=== PATIENT | male | born 1955 | race Caucasian/White ===

== ENCOUNTER 2016-09-21 06:32 | Inpatient (IN) | payer OTHER ==
[~2016-09-21] VITALS: Ht 180.3 cm; Wt 100.1 kg
[~2016-09-21 06:32] MED LIST: LAMO25TA PO; LORA-741 PO; PHN/100 PO
[2016-09-21] MEDS ORDERED: DEXTCAP23 PO (07:24)
[2016-09-21] MEDS ORDERED: IBUP600T44 PO (07:24)
--- NOTE | 2016-09-21 07:34 | EMERGENCY ROOM VISIT NOTE ---
History Report prepared by Zay: Barbara Cat Under the Supervision of: Dr. Toan Unger D.O. First contact with patient: 06:40 Chief Complaint: FLU LIKE SX Stated Complaint: FLU BUG History of Present Illness The patient is a 60 year old male who presents to the Emergency Room with complaints of worsening flu like symptoms over the past 4 days. Currently, he is in mild discomfort as he is feeling generally unwell which has minimally been relieved with ibuprofen and Coricidin. Since the time of onset, the patient has had sinus congestion, post nasal drip, productive cough, generalized muscle aches, burning eyes, and perceived fevers. He also notes a sore throat, which he attests to his frequent cough. He denies headaches, chest pain, shortness of breath, abdominal pain, nausea, vomiting, diarrhea, hematochezia, melena, urinary symptoms, or weakness above baseline. The patient notes that his left ankle has been more swollen than lately and he intermittently experiences a cold, tingling sensation in it. Patient has followed up with neurology (hx of seizures) but he has not been given a diagnosis for these symptoms. Source of History: patient, family Onset: over the past 4 days Position: other (generalized) Symptom Intensity: mild Quality: other (flu like) Timing: worsening Modifying Factors (Relieving): ibuprofen, other (cordicidin) Associated Symptoms: + cough, + fevers, + numbness (tingling in his left ankle (and swelling)), + sorethroat, No SOB, No abdominal pain, No chest pain, No diarrhea, No headache, No hematochezia, No melena, No nausea, No urinary symptoms, No vomiting, No weakness Review of Systems See HPI for pertinent positives & negatives. A total of 10 systems reviewed and were otherwise negative. Past Medical & Surgical Medical Problems: (1) Altered mental status (2) EPILEPSY UNSPEC W/O MENTION INTRACTABLE EPILEPSY (3) Generalized epilepsy (4) Hx of brain cancer (5) MALIG DAWSON BRAIN NOS (6) Malignant neoplasm of brain (7) Meningitis (8) Partial small bowel obstruction (9) SBO (small bowel obstruction) (10) Seizure (11) Seizure (12) Seizure (13) Seizure Surgical Problems: (1) Hx of brain surgery Family History No pertinent family history Social History Smoking Status: Never Smoker Alcohol Use: none Drug Use: none Marital Status: Housing Status: lives with family Occupation Status: disabled Current/Historical Medications Scheduled Dextromethorphan-Guaifenesin (Coricidin Hbp Chest Conge), 1 CAP PO DIRECTED Lamotrigine (Lamictal), 200 MG PO AMPM Lamotrigine (Lamictal), 1 TAB PO BID Phenytoin Sodium (Dilantin), 200 MG PO BID Scheduled PRN Ibuprofen (Motrin), 600 MG PO Q6H PRN for Pain Allergies Coded Allergies: No Known Allergies (Verified , `, 09/21/16) Physical Exam Vital Signs Date Time Temp Pulse Resp B/P Pulse Ox O2 Delivery O2 Flow Rate FiO2 09/21/16 09:25 84 16 148/99 91 Room Air 09/21/16 09:08 36.8 91 20 142/92 91 Room Air 09/21/16 08:51 84 19 142/92 93 Room Air 09/21/16 08:27 86 09/21/16 08:22 86 18 137/96 94 Room Air 09/21/16 06:35 36.8 91 18 136/87 93 Room Air Physical Exam GENERAL: Patient is awake, alert, and in no acute distress. Patient is resting comfortably and showing no signs of anxiety EYES: The conjunctivae are clear. The pupils are round and reactive. EARS, NOSE, MOUTH AND THROAT: TMs clear, bilaterally. Clear rhinorrhea noted from both nares.Mild erythema noted in the posterior oropharynx. Mucous membranes are moist tongue is midline NECK: The neck is nontender and supple. RESPIRATORY: Normal respiratory effort is noted there is no evidence of wheezing rhonchi or rales CARDIOVASCULAR: Regular rate and rhythm noted there no murmurs rubs or gallops normal S1 normal S2 GASTROINTESTINAL: The abdomen is soft. Bowel sounds are present in all quadrants. Abdomen is nontender MUSCULOSKELETAL/EXTREMITIES: There is no evidence of gross deformity full range of motion is noted in the hips and shoulders SKIN: Pedal edema bilaterally, left greater than right. There is no obvious evidence of any rash. There are no petechiae, pallor or cyanosis noted. NEUROLOGIC: Patient is awake alert and oriented x3. Medical Decision & Procedures ER Provider Diagnostic Interpretation: X-ray results as stated below per interpretation by me and the radiologist. US results as stated below per my review and radiologist interpretation. CHEST 2 VIEWS ROUTINE CLINICAL HISTORY: Cough. COMPARISON STUDY: Chest radiograph September 27, 2015. FINDINGS: Lung volumes are diminished. Elevation of the right hemidiaphragm is unchanged. There is no pneumothorax. There is no evidence for pulmonary edema. Linear left basilar opacity is suggestive of atelectasis. Right lower lung opacity also likely reflects atelectasis. IMPRESSION: 1. Diminished lung volumes with elevation of the right hemidiaphragm which is unchanged since prior exam. 2. Linear bibasilar opacities which favor atelectasis. Electronically signed by: Jd Gonzalez M.D. 09/21/2016 7:42 AM ULTRASOUND LEFT VENOUS DOPP LOWER EXT UNILAT CLINICAL HISTORY: Left lower extremity swelling COMPARISON STUDY: No previous studies for comparison. FINDINGS: There is extensive left lower extremity acute deep venous thrombus. There is thrombus extending from the common femoral vein to the calf with involvement of the common femoral superficial femoral and popliteal veins. IMPRESSION: Extensive left lower extremity DVT with involvement of the common femoral, superficial femoral, and popliteal veins. The common femoral thrombus measures 1 cm diameter Electronically signed by: Daren Manrique M.D. 09/21/2016 7:40 AM Laboratory Results 09/21/16 08:05 Red Blood Count 4.67, Mean Corpuscular Volume 94.6, Mean Corpuscular Hemoglobin 33.2, Mean Corpuscular Hemoglobin Concent 35.1, Mean Platelet Volume 9.0, Neutrophils (%) (Auto) 70.5, Lymphocytes (%) (Auto) 11.7, Monocytes (%) (Auto) 17.0, Eosinophils (%) (Auto) 0.4, Basophils (%) (Auto) 0.2, Neutrophils # (Auto ) 3.45, Lymphocytes # (Auto) 0.57, Monocytes # (Auto) 0.83, Eosinophils # (Auto ) 0.02, Basophils # (Auto) 0.01 09/21/16 08:05 Test 09/21/16 06:55 09/21/16 08:05 Influenza Type A Antigen POS for Influ A (NEG) Influenza Type B Antigen Neg for Influ B (NEG) White Blood Count 4.89 K/uL (4.8-10.8) Red Blood Count 4.67 M/uL (4.7-6.1) Hemoglobin 15.5 g/dL (14.0-18.0) Hematocrit 44.2 % (42-52) Mean Corpuscular Volume 94.6 fL (80-100) Mean Corpuscular Hemoglobin 33.2 pg (25-34) Mean Corpuscular Hemoglobin Concent 35.1 g/dl (32-36) Platelet Count 136 K/uL (130-400) Mean Platelet Volume 9.0 fL (7.4-10.4) Neutrophils (%) (Auto) 70.5 % Lymphocytes (%) (Auto) 11.7 % Monocytes (%) (Auto) 17.0 % Eosinophils (%) (Auto) 0.4 % Basophils (%) (Auto) 0.2 % Neutrophils # (Auto) 3.45 K/uL (1.4-6.5) Lymphocytes # (Auto) 0.57 K/uL (1.2-3.4) Monocytes # (Auto) 0.83 K/uL (0.11-0.59) Eosinophils # (Auto) 0.02 K/uL (0-0.5) Basophils # (Auto) 0.01 K/uL (0-0.2) RDW Standard Deviation 48.1 fL (36.4-46.3) RDW Coefficient of Variation 14.0 % (11.5-14.5) Immature Granulocyte % (Auto) 0.2 % Immature Granulocyte # (Auto) 0.01 K/uL (0.00-0.02) Prothrombin Time 10.9 SECONDS (9.0-12.0) Prothromb Time International Ratio 1.0 (0.9-1.1) Activated Partial Thromboplast Time 32.0 SECONDS (21.0-31.0) Partial Thromboplastin Ratio 1.2 Anion Gap 10.0 mmol/L (3-11) Est Creatinine Clear Calc Drug Dose 118.9 ml/min Estimated GFR () 113.3 Estimated GFR (Non- 97.8 BUN/Creatinine Ratio 16.8 (10-20) Calcium Level 8.9 mg/dl (8.5-10.1) Total Bilirubin 0.3 mg/dl (0.2-1) Direct Bilirubin 0.1 mg/dl (0-0.2) Aspartate Amino Transf (AST/SGOT) 32 U/L (15-37) Alanine Aminotransferase (ALT/SGPT) 58 U/L (12-78) Alkaline Phosphatase 196 U/L (45-117) Troponin I < 0.015 ng/ml (0-0.045) Total Protein 7.6 gm/dl (6.4-8.2) Albumin 3.9 gm/dl (3.4-5.0) Lipase 81 U/L (73-393) Hepatitis C Antibody Screen NEG (NEG) Laboratory results per my review. Medications Administered Medications (Trade) Dose Ordered Sig/[place] Route Start Time Stop Time Status Last Admin Dose Admin Oseltamivir Phosphate (Tamiflu Cap) 75 mg ONE STAT PO 09/21/16 07:43 09/21/16 07:44 DC 09/21/16 07:43 75 MG Enoxaparin Sodium (Lovenox Inj) 100 mg NOW ONCE SQ 09/21/16 08:45 09/21/16 08:46 DC 09/21/16 08:49 100 MG Acetaminophen (Tylenol Tab) 650 mg Q4H PRN PO 09/21/16 09:45 10/21/16 09:44 09/21/16 15:51 650 MG ECG Indication: other (DVT) Rate (beats per minute): 80 Rhythm: normal sinus Findings: no acute ischemic change, no ectopy Change: no significant change (when compared to 01/27/16) ED Course 0642: The patient was evaluated in room B3. A complete history and physical examination were performed. 0743: Tamiflu cap 75 mg PO was ordered. 0750: Upon reevaluation the patient was doing well and appeared to be resting more comfortably. I updated him and his family on the results of his radiology reports and lab tests that had returned. The pathologist will be contacted. 0832: Lovenox 100 mg SQ was ordered. 0835: Discussed the patient's case with Dr. Jimenez of pathology. She suggested admitting the patient to medicine due to his history of glioblastoma and his lack of PCP. The hospitalist will be contacted. 0854: After discussion with Dr. Ray, the patient will continue to be evaluated by the [facility] for further management. The patient verbalized his understanding and agreement with this treatment plan. Medical Decision Differential diagnosis: Etiologies such as viral syndrome, otitis, pharyngitis, pneumonia, influenza, meningitis, urinary tract infection, sepsis, bacteremia, as well as others were entertained. Nursing notes reviewed. The patient is a 60-year-old male who presented to the emergency department for an evaluation of lower extremity swelling cough and rhinorrhea. The patient had a history physical exam consistent with the flu and his flu swab was positive. He also complained of left leg swelling. He states that this is been ongoing for a few weeks. He was not sure if he wanted this to be checked out at this time because she does not like to go to the doctor's. After discussion with myself and his he agreed to have a Doppler done. The Doppler showed very extensive left lower extremity DVT. I discussed the patient's findings with Dr. Jimenez and also discussed his case with the on-call [facility] hospitalist group. They've agreed to evaluate the patient in the emergency department for further management and disposition. I discussed the patient's laboratory and radiographic studies with him. Consults Time Called: 0820 Consulting Physician: Dr. Jimenez - pathology Returned Call: 0830 Discussed the patient's case. She suggested admitting the patient to medicine due to his history of glioblastoma and his lack of PCP. Additional Consults: Time Called: 0835 Consulted Physician: Dr. Ray - [facility] Returned Call: 0850 Additional Comments: Discussed the patient's case. He will continue to be evaluated by the [facility] hospitalist for further management. Impression Primary Impression: Deep vein thrombosis (DVT) of distal vein of left lower extremity Additional Impression: Influenza Scribe Attestation The scribe's documentation has been prepared under my direction and personally reviewed by me in its entirety. I confirm that the note above accurately reflects all work, treatment, procedures, and medical decision making performed by me. Departure Information Dispostion Being Evaluated By Hospitalist ([facility]) Referrals No Doctor, Assigned (PCP)
--- NOTE | 2016-09-21 07:42 | DIAGNOSTIC IMAGING REPORT ---
ULTRASOUND LEFT VENOUS DOPP LOWER EXT UNILAT CLINICAL HISTORY: Left lower extremity swelling COMPARISON STUDY: No previous studies for comparison. FINDINGS: There is extensive left lower extremity acute deep venous thrombus. There is thrombus extending from the common femoral vein to the calf with involvement of the common femoral superficial femoral and popliteal veins. IMPRESSION: Extensive left lower extremity DVT with involvement of the common femoral, superficial femoral, and popliteal veins. The common femoral thrombus measures 1 cm diameter Electronically signed by: Daren Manrique M.D. 09/21/2016 7:40 AM
[2016-09-21] MEDS ORDERED: OSELTAMIVIR PHOSPHATE 75 MG CAP PO STA (07:43)
--- NOTE | 2016-09-21 07:44 | DIAGNOSTIC IMAGING REPORT ---
CHEST 2 VIEWS ROUTINE CLINICAL HISTORY: Cough. COMPARISON STUDY: Chest radiograph September 27, 2015. FINDINGS: Lung volumes are diminished. Elevation of the right hemidiaphragm is unchanged. There is no pneumothorax. There is no evidence for pulmonary edema. Linear left basilar opacity is suggestive of atelectasis. Right lower lung opacity also likely reflects atelectasis. IMPRESSION: 1. Diminished lung volumes with elevation of the right hemidiaphragm which is unchanged since prior exam. 2. Linear bibasilar opacities which favor atelectasis. Electronically signed by: Jd Gonzalez M.D. 09/21/2016 7:42 AM
[2016-09-21 08:22] LABS: BASO % 0.2 %; BASO ABS # 0.01 K/uL (0-0.2); COMPLETE YES; EOS % 0.4 %; HEMATOCRIT 44.2 % (42-52); IG% 0.2 %; LYMPH % 11.7 %; LYMPH ABS # 0.57 K/uL (1.2-3.4); MEAN CELL VOLUME 94.6 fL (80-100); MEAN CORPUSCULAR HEMOGLOBIN 33.2 pg (25-34); MEAN CORPUSCULAR HGB CONC 35.1 g/dl (32-36); NEUT % 70.5 %; PLATELET COUNT 136 K/uL (130-400); RED BLOOD COUNT 4.67 M/uL (4.7-6.1); WHITE BLOOD COUNT 4.89 K/uL (4.8-10.8)
[2016-09-21 08:30] LABS: PARTIAL THROMBOPLASTIN RATIO 1.2; PROTHROMBIN TIME (PATIENT) 10.9 SECONDS (9.0-12.0)
[2016-09-21 08:40] LABS: ALT/SGPT 58 U/L (12-78); BLOOD UREA NITROGEN 13 mg/dl (7-18); BUN/CREATININE RATIO 16.8 (10-20); CALCIUM 8.9 mg/dl (8.5-10.1); CARBON DIOXIDE 26 mmol/L (21-32); CHLORIDE 103 mmol/L (98-107); GLUCOSE 96 mg/dl (70-99); POTASSIUM 3.7 mmol/L (3.5-5.1); SODIUM 139 mmol/L (136-145)
[2016-09-21 08:45] LABS: ALKALINE PHOSPHATASE 196 U/L (45-117); AST/SGOT 32 U/L (15-37)
[2016-09-21] MEDS ORDERED: ENOXAPARIN 100 MG/1ML SYR SQ ONE (08:45)
[2016-09-21 09:08] VITALS: BP 142/92; PULSE 91; TEMP 36.8; O2SAT 91; Ht 180.3 cm; Wt 100.1 kg
[2016-09-21] MEDS ORDERED: ENOXAPARIN 1 MG/KG SQ SCH (09:45)
[2016-09-21] MEDS ORDERED: POLYETHYLENE (MIRALAX) 17 GM PACK PO PRN (09:45)
[2016-09-21] MEDS ORDERED: ALUMINUM/MAGNESIUM/SIMETH (MAALOX MAX) 30 ML UDC PO PRN (09:45)
[2016-09-21] MEDS ORDERED: MAGNESIUM HYDROXIDE SUSP 30 ML UDC PO PRN (09:45)
[2016-09-21] MEDS ORDERED: ONDANSETRON INJ 2 MG/ML 2 ML VIAL IV PRN (09:45)
[2016-09-21] MEDS ORDERED: OPTIRAY 320 IV PRN (10:15)
--- NOTE | 2016-09-21 10:26 | History and Physical ---
History & Physical Date & Time of Service: Sep 21, 2016 at 10:06 Chief Complaint: Flu Bug Primary Care Physician: No Doctor, Assigned History of Present Illness Source: patient, family Patient is a pleasant 60 y/o male, with PMHx of glioblastoma s/p resection and grand mal seizures, who presented to the ED for flu-like symptoms. Incidentally , an extensive left lower extremity DVT was found. Patient presented to the ED because of cough, fever/chills, and diffuse body aches x3 days. Patient tested positive for influenza A. His entire family has been sick with flu-like symptoms , but his continued to persist. On physical exam, ED doctor noticed lower left extremity edema. According to , patient noticed the swelling around Ina time, but refused to go get checked out. Patient has decreased sensation to entire left side due to the effects of his glioblastoma surgery, so states he cannot feel any discomfort in the extremity. Per patient he had his tumor resection in 2003, with success. A few years after, patient experienced a blood clot in his brain form the scar tissue. A second procedure was preformed, which caused the left sided impairment. He denies any history of PE or DVT. He denies any recently long travel. His states patient has been less active over the winter months. He does not have an established PCP. Patient denies any sweats, lightheadedness, dizziness, vision changes, CP, palpitations, edema, SOB, wheezing, abdominal pain, nausea, vomiting, diarrhea, urinary symptoms, melena, numbness/tingling, weakness, muscle/joint pain, anxiety/depression, active bleeding, or new skin discoloration/changes. Past Medical/Surgical History Medical Problems: (1) EPILEPSY UNSPEC W/O MENTION INTRACTABLE EPILEPSY Status: Chronic (2) Generalized epilepsy Status: Chronic (3) Hx of brain cancer Status: Chronic (4) MALIG DAWSON BRAIN NOS Status: Resolved (5) Malignant neoplasm of brain Status: Resolved (6) Meningitis Status: Resolved (7) Partial small bowel obstruction Status: Resolved (8) SBO (small bowel obstruction) Status: Resolved (9) Seizure Status: Resolved (10) Seizure Status: Resolved (11) Seizure Status: Resolved (12) Seizure Status: Resolved Surgical Problems: (1) Hx of brain surgery Status: Chronic Family History No pertinent family history Social History Smoking Status: Never Smoker Drug Use: none Marital Status: Housing status: lives with family Occupational Status: disabled Immunizations History of Influenza Vaccine: Yes History of Tetanus Vaccine?: Yes History of Pneumococcal: No History of Hepatitis B Vaccine: No Multi-Drug Resistant Organisms History of MDRO: No Allergies Coded Allergies: No Known Allergies (Verified , `, 09/21/16) Home Medications Scheduled Dextromethorphan-Guaifenesin (Coricidin Hbp Chest Conge), 1 CAP PO DIRECTED Lamotrigine (Lamictal), 200 MG PO AMPM Lamotrigine (Lamictal), 1 TAB PO BID Phenytoin Sodium (Dilantin), 200 MG PO BID Scheduled PRN Ibuprofen (Motrin), 600 MG PO Q6H PRN for Pain Physical Exam Vital Signs Date Time Temp Pulse Resp B/P Pulse Ox O2 Delivery O2 Flow Rate FiO2 09/21/16 09:25 84 16 148/99 91 Room Air 09/21/16 09:08 36.8 91 20 142/92 91 Room Air 09/21/16 08:51 84 19 142/92 93 Room Air 09/21/16 08:27 86 09/21/16 08:22 86 18 137/96 94 Room Air 09/21/16 06:35 36.8 91 18 136/87 93 Room Air General Appearance: no apparent distress Head: normocephalic, atraumatic Eyes: normal inspection, PERRL ENT: hearing grossly normal Neck: supple Respiratory/Chest: lungs clear, no respiratory distress, no accessory muscle use, + decreased breath sounds Cardiovascular: regular rate, rhythm, normal peripheral pulses Abdomen/GI: normal bowel sounds, non tender, soft Back: + pertinent finding (irregular mole with scabbing loacated near right shoulder blade) Extremities/Musculoskelatal: no calf tenderness, no pedal edema, + swelling (+ 1 pitting edema of left lower extremity ) Neurologic/Psych: alert, normal mood/affect, oriented x 3 Skin: normal color, warm/dry, no rash Diagnostics Laboratory Results Results Past 24 Hours Test 09/21/16 06:55 09/21/16 08:05 Range/Units Influenza Type A Antigen POS for Influ A NEG Influenza Type B Antigen Neg for Influ B NEG White Blood Count 4.89 4.8-10.8 K/uL Red Blood Count 4.67 4.7-6.1 M/uL Hemoglobin 15.5 14.0-18.0 g/dL Hematocrit 44.2 42-52 % Mean Corpuscular Volume 94.6 80-100 fL Mean Corpuscular Hemoglobin 33.2 25-34 pg Mean Corpuscular Hemoglobin Concent 35.1 32-36 g/dl Platelet Count 136 130-400 K/uL Mean Platelet Volume 9.0 7.4-10.4 fL Neutrophils (%) (Auto) 70.5 % Lymphocytes (%) (Auto) 11.7 % Monocytes (%) (Auto) 17.0 % Eosinophils (%) (Auto) 0.4 % Basophils (%) (Auto) 0.2 % Neutrophils # (Auto) 3.45 1.4-6.5 K/uL Lymphocytes # (Auto) 0.57 1.2-3.4 K/uL Monocytes # (Auto) 0.83 0.11-0.59 K/uL Eosinophils # (Auto) 0.02 0-0.5 K/uL Basophils # (Auto) 0.01 0-0.2 K/uL RDW Standard Deviation 48.1 36.4-46.3 fL RDW Coefficient of Variation 14.0 11.5-14.5 % Immature Granulocyte % (Auto) 0.2 % Immature Granulocyte # (Auto) 0.01 0.00-0.02 K/uL Prothrombin Time 10.9 9.0-12.0 SECONDS Prothromb Time International Ratio 1.0 0.9-1.1 Activated Partial Thromboplast Time 32.0 21.0-31.0 SECONDS Partial Thromboplastin Ratio 1.2 Sodium Level 139 136-145 mmol/L Potassium Level 3.7 3.5-5.1 mmol/L Chloride Level 103 98-107 mmol/L Carbon Dioxide Level 26 21-32 mmol/L Anion Gap 10.0 3-11 mmol/L Blood Urea Nitrogen 13 7-18 mg/dl Creatinine 0.80 0.60-1.40 mg/dl Est Creatinine Clear Calc Drug Dose 118.9 ml/min Estimated GFR () 113.3 Estimated GFR (Non- 97.8 BUN/Creatinine Ratio 16.8 10-20 Random Glucose 96 70-99 mg/dl Calcium Level 8.9 8.5-10.1 mg/dl Total Bilirubin 0.3 0.2-1 mg/dl Direct Bilirubin 0.1 0-0.2 mg/dl Aspartate Amino Transf (AST/SGOT) 32 15-37 U/L Alanine Aminotransferase (ALT/SGPT) 58 12-78 U/L Alkaline Phosphatase 196 45-117 U/L Troponin I < 0.015 0-0.045 ng/ml Total Protein 7.6 6.4-8.2 gm/dl Albumin 3.9 3.4-5.0 gm/dl Lipase 81 73-393 U/L Diagnostic Radiology CHEST 2 VIEWS ROUTINE CLINICAL HISTORY: Cough. COMPARISON STUDY: Chest radiograph September 27, 2015. FINDINGS: Lung volumes are diminished. Elevation of the right hemidiaphragm is unchanged. There is no pneumothorax. There is no evidence for pulmonary edema. Linear left basilar opacity is suggestive of atelectasis. Right lower lung opacity also likely reflects atelectasis. IMPRESSION: 1. Diminished lung volumes with elevation of the right hemidiaphragm which is unchanged since prior exam. 2. Linear bibasilar opacities which favor atelectasis. Electronically signed by: Jd Gonzalez M.D. 09/21/2016 7:42 AM The status of this report is Signed. Draft = Not yet reviewed or approved by Radiologist. Signed = Reviewed and approved by Radiologist. ULTRASOUND LEFT VENOUS DOPP LOWER EXT UNILAT CLINICAL HISTORY: Left lower extremity swelling COMPARISON STUDY: No previous studies for comparison. FINDINGS: There is extensive left lower extremity acute deep venous thrombus. There is thrombus extending from the common femoral vein to the calf with involvement of the common femoral superficial femoral and popliteal veins. IMPRESSION: Extensive left lower extremity DVT with involvement of the common femoral, superficial femoral, and popliteal veins. The common femoral thrombus measures 1 cm diameter Electronically signed by: Daren Manrique M.D. 09/21/2016 7:40 AM The status of this report is Signed. Draft = Not yet reviewed or approved by Radiologist. Signed = Reviewed and approved by Radiologist. EKG MICHELLE BHAKTA ID:[id number] 21-SEP-2016 08:04:42 [facility] Normal sinus rhythm Normal ECG When compared with ECG of 27-JAN-2016 06:28, No significant change was found 25mm/s 10mm/mV 150Hz 8.0 SP2 12SL 241 MARIVEL: 9 Referred by: Referred Self Unconfirmed Vent. rate 88 BPM [place] interval 140 ms QRS duration 90 ms QT/QTc 354/428 ms P-R-T axes 25 -2 23 1955 (60 yr) Male 97in 1lb Room:B3B Loc:15 [employer] Supervisor:WINSTON Nicolas ind: Impression Assessment and Plan 60 y/o male, with PMHx of glioblastoma s/p resection, grand mal seizures, who presented to the ED for flu-like symptoms. Incidentally, an extensive left lower extremity DVT was found. Left lower extremity DVT: -Lovenox 1mg/kg q12 hrs bridge with oral anticoagulation -CT of chest for PE -Follow PTT/PT/INR Flu-like symptoms, Influenza A positive: -Supportive care -Tamiflu 75 mg PO BID x5 days -Follow CBC and PRP Seizure disorder: -Continue Lamictal 225 mg PO BID -Continue Dilantin 200 mg PO BID -Follows with Dr. 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 Will need to establish care for routine follow-ups, especially with history of Glioblastoma. Needs colonoscopy -Help with cost/option of coagulation therapy Code Status: -LEVEL V, DNR Level of Care Med/Surg Advanced Directives Existing Advance Directive: No Existing Living Will: No Existing Power of Job Developer For Deaf Adults: Yes Resuscitation Status DO NOT RESUSCITATE VTE Prophylaxis VTE Risk Assessment Done? Y/N: Yes Risk Level: High Given or contraindicated: Enoxaparin (Lovenox)SQ Reviewed: Pt Seen/Exam by Me, JOJO Notes, Labs, RAD, EKG History Agree with above HPI/H&P/PMH/PSH/ROS. Pt and report left leg started swelling on 09/06/16 the day after he was having some significant left axillary pain prompting a trip to the urgent care the day prior. noticed left leg swelling but pt stubborn and wouldn't get it checked out. He denies CP or SOB, but is coughing right now and has pain in central chest only with cough. He has +Flu A swab here but is afebrile, not septic. He and his both admit he is very avoidant of doctors except he does see Dr. christainson q6 mo for seizure f/u. no h/o bleeding of any kind, no other clots except the one by his scar tissue with repeat surgery in approx 2008. CT chest done here w/ motion artifact but no PEs in main pulm arteries, some mediastinal ALISTAIR probably reactive with respiratory symptoms from flu. His atypical appearing skin lesion on mid upper back has been present for 3 years, growing in size, and bleeds frequently. Pt states he is willing to see a Territory Sales Professional here for biopsy, but would never go as an outpatient as he absolutely knows for sure he does not have cancer anywhere in his body, and that he has been cured/healed indefinitely by God. All Other Systems: Reviewed and Negative (except as above PA note) General Appearance: WD/WN, no apparent distress Eye Exam: right eye normal inspection (with mild ptosis left lid) Ears, Nose, Throat: hearing grossly normal Neck: trachea midline Respiratory: lungs clear, normal breath sounds, no respiratory distress, no accessory muscle use Cardiovascular: normal peripheral pulses, regular rate, rhythm, no gallop, no murmur Gastrointestinal: normal bowel sounds, non tender, soft, no organomegaly Extremities: swelling (left leg with 2+ pitting edema from foot to knee and distal thigh, mild erythema distal leg, nontender) Neurologic/Psychiatric: alert, normal mood/affect, other (speech is slightly slowed, left sided mildly decreased motor strength LUE and LLE, left facial droop present) Skin Characteristics: normal color (except left leg mild erythema), other ( upper mid back with approx 1 cm flesh colored papule that is shiny, with several areas of scab and some minor active oozing of blood around the circumference) Lymphatic: no adenopathy Assessment/Plan Agree with above PA A/P with the following exceptions/additions: DVT LLE-extensive clot formation, reports sedentary the last month or so and with baseline left sided weakness, probable cause of his DVT. But does have a h/o GBM, and has an abnormal appearing skin lesion and lymphadenopathy on chest CT. He is not anemic so colon CA most likely not underlying, however, I do still recommend colonoscopy screening. He has some mediastinal and hilar adenopathy on chest CT but this is most likely reactive to influenza. I will ask Pulm to see him for their opinion on the lymphadenopathy. Given his outright defiance of seeing any doctors except for Dr. Christianson (Neuro) as an outpatient, I will ask DERM to see him for possible biopsy of the back lesion while in the hospital. It is most likely a BCC, but could be a nonpigmented melanoma? 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 I called to d/w Dr. Christianson on the phone who agreed that although the risk is there, pt is fairly remote from his surgeries and the risk of not anticoagulating him far outweighs the risk of bleeding. In d/w and pt, we will proceed with coumadin as it is reversible in case of bleed, and cheaper. She said he would be willing to go for lab testing frequently for this condition. Will overlap Lovenox with coumadin x 5 days and stop after INR>2
--- NOTE | 2016-09-21 11:51 | DIAGNOSTIC IMAGING REPORT ---
CT ANGIOGRAM OF THE CHEST CLINICAL HISTORY: Hypoxia. Extensive DVT. Suspected pulmonary embolism. COMPARISON STUDY: Chest x-ray dated 09/21/2016 TECHNIQUE: Following the IV administration of 96 mL of Optiray-320, CT angiogram of the thorax was performed from the thoracic inlet to the lung bases utilizing the pulmonary embolus protocol. Images are reviewed in the axial, sagittal, and coronal planes. IV contrast was administered without complication. MIP imaging was performed. CT DOSE: 560.78 mGy.cm FINDINGS: There is an enlarged right paratracheal lymph node measuring 13 mm. There is an enlarged left prevascular lymph node measuring 12 mm. There is an enlarged subcarinal lymph node measuring 11 mm. There are borderline enlarged hilar lymph nodes. Atheromatous changes are present within the thoracic aorta most pronounced the level of the arch. There is no evidence of thoracic aortic aneurysm. Evaluation of pulmonary arteries is significantly limited due to respiratory motion artifact. No central emboli are visualized. No pleural effusions are visualized. There are bilateral atelectatic type changes. There is elevation of the right hemidiaphragm. There is no lobar consolidation There are right renal parapelvic cysts versus mild hydronephrosis. IMPRESSION: 1. Technically limited study secondary to respiratory motion artifact 2. No central pulmonary emboli identified 3. Mild mediastinal lymphadenopathy 4. Elevation right hemidiaphragm, low lung volumes, and bilateral atelectatic changes Electronically signed by: Daren Manrique M.D. 09/21/2016 11:49 AM
[2016-09-21 12:35] VITALS: BP 123/82; PULSE 87; TEMP 36.9; O2SAT 92
[2016-09-21 15:34] VITALS: BP 144/92; PULSE 87; TEMP 37.3; O2SAT 91
[2016-09-21] MEDS: ACETAMINOPHEN 325 MG TAB PO PRN ×2 (15:51→20:05)
[2016-09-21] MEDS ORDERED: WARFARIN SOD 5 MG TAB PO ONE (17:25)
[2016-09-21] MEDS ORDERED: PHENYTOIN SODIUM ER 100 MG CAP PO SCH (20:00)
[2016-09-21] MEDS: HYDROCODONE/HOMATROPINE SYRUP 5MG/1.5MG 5ML UDP PO PRN (20:03)
[2016-09-21] MEDS: OSELTAMIVIR PHOSPHATE 75 MG CAP PO SCH (20:05)
[2016-09-21] MEDS: ENOXAPARIN 100 MG/1ML SYR SQ SCH (20:07)
[2016-09-21] MEDS ORDERED: COUGH DROP (SUGAR FREE) LOZ 24 LOZ/1 BOX ONE (20:52)
[2016-09-22 00:42] VITALS: BP 167/99; PULSE 108; TEMP 37.4; O2SAT 90
[2016-09-22] MEDS: HYDROCODONE/HOMATROPINE SYRUP 5MG/1.5MG 5ML UDP PO PRN ×2 (02:17→16:55)
[2016-09-22] MEDS: ACETAMINOPHEN 325 MG TAB PO PRN ×4 (02:18→16:55)
[2016-09-22 07:11] LABS: RED BLOOD COUNT 4.72 M/uL (4.7-6.1); WHITE BLOOD COUNT 6.67 K/uL (4.8-10.8)
[2016-09-22 07:12] LABS: HEMATOCRIT 44.1 % (42-52); MEAN CELL VOLUME 93.4 fL (80-100); MEAN CORPUSCULAR HEMOGLOBIN 33.1 pg (25-34); MEAN CORPUSCULAR HGB CONC 35.4 g/dl (32-36); MEAN PLATELET VOLUME 9.6 fL (7.4-10.4); PLATELET COUNT 138 K/uL (130-400)
[2016-09-22 07:18] LABS: INR 1.1 (0.9-1.1); PARTIAL THROMBOPLASTIN RATIO 1.5; PROTHROMBIN TIME (PATIENT) 11.3 SECONDS (9.0-12.0)
[2016-09-22 07:48] LABS: BUN/CREATININE RATIO 13.7 (10-20); CALCIUM 8.8 mg/dl (8.5-10.1); CREATININE 0.89 mg/dl (0.60-1.40); POTASSIUM 3.7 mmol/L (3.5-5.1)
[2016-09-22 07:59] VITALS: BP 130/89; PULSE 96; TEMP 37.3; O2SAT 91
[2016-09-22 08:00] VITALS: O2SAT 91
[2016-09-22] MEDS: OSELTAMIVIR PHOSPHATE 75 MG CAP PO SCH (08:30)
[2016-09-22] MEDS: ENOXAPARIN 100 MG/1ML SYR SQ SCH ×2 (08:30→18:27)
--- NOTE | 2016-09-22 08:58 | PULMONARY CONSULTATION ---
DATE OF CONSULTATION: 09/22/2016 TIME: 07:55 a.m. HISTORY OF PRESENT ILLNESS: The patient was seen in room 451, bed 2. He is a pleasant 60-year-old male who came to the Emergency Room with flu-like symptoms. He had cough, fevers, chills and body aches. The cough has been productive of some white sputum. He believes his symptoms began about a week before coming. The history and physical indicate that it was just 3 days before coming. The patient admits he is not the best historian. He has had 2 brain surgeries and he has some memory issues related to that. The patient tested positive for influenza A. His cough is improving. Generally, he feels better. At the time of admission, it was noted that he had significant edema of the left leg. Reportedly, this started about September 06. The patient does not have a regular physician and he did not want to do anything about the swelling. Doppler was positive for deep vein thrombosis. A CAT scan of the chest was done. The CAT scan showed no evidence of pulmonary emboli. He did have mildly enlarged lymph nodes in the mediastinum. The largest right peritracheal lymph node was 13 mm. There was a left prevascular lymph node, measuring 12 mm and a subcarinal node, measuring 11 mm. There were borderline hilar lymph nodes. The patient denies any prior history of any lung troubles of any kind. There was no obvious precipitating factor for his DVT other than relative inactivity. In 2003, the patient had brain surgery for a glioblastoma. A few years later, he had a second procedure for a blood clot on the brain. After that surgery, he developed left-sided symptoms. He has had some disconjugate gaze from the left side as well as significant weakness of the left arm and left leg. He can ambulate, but it is not easy for him. He states that at this time of the year, he is mostly just sitting around, doing nothing. He also admits to being sleepy during the day. There was no trauma to the leg. He has not had any airplane rides. There is no prior history of blood clots. There is no family history of blood clots. PAST SURGICAL HISTORY: 1. Two brain surgeries as noted above. 2. Right shoulder surgery for a shoulder, which occurred playing football when he was in his 30s or 40s. PAST MEDICAL HISTORY: 1. Epilepsy related to glioblastoma. 2. Partial small bowel obstruction. SOCIAL HISTORY: Tobacco, never. ETOH -- none since 2003. ALLERGIES: No known allergies. FAMILY HISTORY: Mother is living, alive and well. Father in his 70s from sudden . MEDICATIONS: At home, 1. Dextromethorphan/guaifenesin. 2. Lamictal. 3. Dilantin 200 mg b.i.d. 4. Ibuprofen p.r.n. REVIEW OF SYSTEMS: GENERAL: The patient has low energy. He states he is sleepy during the day. He admits to snoring loud. He states his tells him that he stops breathing when he is sleeping. The possibility of sleep apnea is raised. NEUROLOGIC: He has multiple deficits as noted above. OPHTHALMIC: He has altered vision because of disconjugate gaze. ENT: Some nasal congestion and snoring. CARDIAC: No chest pains or palpitations. PULMONARY: He denies any significant shortness of breath. He is having a cough and so forth from his recent influenza. GASTROINTESTINAL: Appetite is excellent. Denies any bowel problems. GENITOURINARY: Denies complaints. MUSCULOSKELETAL: Denies acute myalgias or arthralgias. DERMATOLOGIC: He has significant edema of the left leg as noted, but denies rashes. ENDOCRINE: No lymphadenopathy. PHYSICAL EXAMINATION: GENERAL: The patient is a pleasant 60-year-old male who was cooperative, alert and oriented. He was in no distress. Current temperature is 37.4. HEENT: Pupils were reactive. There is disconjugate gaze with the left eye deviating slightly laterally. Mouth exam was negative. Pharynx would be a Mallampati grade 2. NECK: Palpation of the neck reveals no lymph nodes or masses. CHEST: Normal expansion and development. On the posterior chest, in the upper area, he has a skin lesion, which is somewhat raised. Apparently, this has been getting larger. There is no significant discoloration. He has a scar in the area of the right shoulder. HEART: Rate was 84 beats per minute. Blood pressure 167/99. LUNGS: Lung anne revealed mild rales bilaterally. I suspect this is related to his influenza. Oxygen saturation was lower than expected at only 90% on room air. Respiratory rate was 20. ABDOMEN: Soft. Bowel sounds were present. There was no tenderness to palpation or definite mass. EXTREMITIES: Revealed severe edema of the left leg, extending well above the knee. The left arm and the left leg both have significant diminution in their function compared with the right side. LABORATORY DATA: CBC shows a white count of 6.67, hemoglobin 15.6, and platelets 138,000. INR is 1.1 with a PTT of 1.5. Electrolytes show sodium 136, potassium 3.7, chloride 100, bicarbonate 27, BUN is 12, and creatinine 0.89. Alkaline phosphatase was elevated at 196, but AST and ALT were normal. Troponins were negative. Phenytoin level was elevated at 24.9. Flu test was positive for influenza A. EKG done at the time of admission showed an underlying sinus rhythm with a rate of 88. No significant abnormalities were seen. IMPRESSION: 1. Left leg deep venous thrombosis. 2. Mediastinal adenopathy. 3. Elevation of right hemidiaphragm seen on CAT scan and x-rays with no significant change dating back to 2012. 4. Probable obstructive sleep apnea. 5. Influenza A. COMMENTS AND RECOMMENDATIONS: The patient is currently on Lovenox and Coumadin. I agree with that treatment. Apparently, this had also been discussed with the neurology department. He is on Tamiflu. Regarding the mediastinal adenopathy, I believe he should have a followup CAT scan of the chest in 4 months. I spoke with the patient in principal about following up with me regarding this and he seemed receptive to that. I have placed a call to his to discuss this, but I have not been able to speak to her as yet. The other issue is possible sleep apnea. I need to speak to his to get some history, but he describes snoring and excessive daytime somnolence as well as what sounds like observed apnea. I will discuss this with his and the patient to consider getting a sleep study somewhere in the future. Thank you for asking me to assist in his care.
[2016-09-22] MEDS ORDERED: DLN100 PO ×4 (10:37→10:40)
[2016-09-22] MEDS ORDERED: TMF75 PO (10:37)
[2016-09-22] MEDS ORDERED: CMD5 PO (10:37)
[2016-09-22] MEDS ORDERED: LVNIS100 SQ (10:37)
--- NOTE | 2016-09-22 11:47 | Discharge Instructions ---
Discharge Instructions Admission Reason for Admission: Dvt Of Distal Vein Of L Lower Extremity, Influenza Discharge Discharge Diagnosis / Problem: DVT of left lower extremity, Influenza Discharge Goals Goal(s): Decrease discomfort, Improve function, Learn about illness, Diagnostic testing, Therapeutic intervention, Prevent Disease Progression Activity Recommendations Activity Limitations: resume your previous activity . Instructions / Follow-Up Instructions / Follow-Up Left lower extremity DVT (left leg clot): -Take Lovenox injections twice per day, as instructed/taught in the hospital. Dr. Allison's office will follow-up with you closely and instruct you as to when you can discontinue the injections. -Take Coumadin 5 mg by mouth daily -You need to get your INR checked tomorrow (09/23). The results will be forwarded to Dr. Allison. They will further instruct you on how to proceed with your medications. They will also schedule your next INR check. Flu: -Take Tamiflu 75 mg by mouth twice a day until the prescription is completed Seizure disorder: -Continue Lamictal as prescribed -Your Dilantin dosage has been changed. Please take 100 mg Dilantin by mouth every morning and 200 mg Dilantin by mouth every night. Continue this change in medication until further instructed. You have been given a script to get your Dilantin level checked on Monday (09/26). The results will be forwarded to Dr. Irizarry. He will further instruct you on how to proceed with your medication dosage -It is important you keep your upcoming scheduled appointment with Dr. Irizarry [employer] Dr. Nj advises you get a follow-up chest CT in 4 months. You will need a follow-up with Dr. Nj one week AFTER having the chest CT. Office # [phone] Irregular mole on back. -It has been HIGHLY recommended that you seen Dermatology for the mole on your back. At this point, you are refusing. It is HIGHLY recommended that you reconsider. Dr. Horton would be happy to see you anytime if you change your mind. Office # [phone] You may resume all other regular home medications as prescribed to you Please follow-up/keep all of your subspecialty appointments Medication Instructions: * Warfarin is a medicine prescribed to prevent blood clots * Warfarin will thin your blood and help prevent new clots * Take your medications exactly as directed * Never skip a dose. Never take a double dose. If you miss a dose, take it as soon as you remember * It is important for your doctor to monitor your prothrombin time (PT). This is a lab test * Keep your appointment for lab tests Risk of Adverse Drug Reactions and Interactions: * Warfarin increases your risk of bleeding * The food you eat and other medications you take can affect how Warfarin works in your body * Ask your doctor about daily aspirin therapy * It is very important to talk with your doctor about all of the other medicines, antibiotics, vitamins or herbal products that you are taking * All of your medication must be approved by your doctor, including new medicines, as well as medicines you have taken before you started taking Warfarin Diet: * In order for Warfarin to work properly, it is important to keep your intake of Vitamin K as consistent as possible * You should avoid any sudden change in Vitamin K intake * Report any significant changes in your diet or weight to your doctor Call your Doctor if you experience any of the following: * Swelling or Pain in your leg * Sudden, continuous pain deep in a muscle * Pain that worsens when you are active or when you stand still for a long time * Chest Pain * Sudden Shortness of Breath * Rapid or pounding heart beat * Fainting * Dizziness * Cough with blood or bloody sputum * Sweating more than normal * Bruises * heavy or uncontrolled bleeding * Blood in your urine, stool or vomit * Black or tarry stools Caring for Your Self at Home: * Avoid sitting, standing or lying down for long periods without moving your legs and feet * When traveling by car, stop to get out and move around at least once every 3 hours * On long airplane, train or bus rides, get up and move around when possible * If you can't get up, wiggle your toes and tighten your calves to keep your blood moving Follow Up: * It is important for you to keep your follow up appointments with your medical provider. Current Hospital Diet Patient's current hospital diet: Regular Diet Discharge Diet Recommended Diet: Regular Diet Procedures Procedures Performed: 1. Chest x-ray 2. Chest CTA 3. Left lower extremity CTA Pending Studies Studies pending at discharge: yes List of pending studies: 1. Lamotrigine level Laboratory Results Last 24 Hours Test 09/22/16 06:54 09/22/16 06:56 Phenytoin (Dilantin) Level 24.9 mcg/mL White Blood Count 6.67 K/uL Red Blood Count 4.72 M/uL Hemoglobin 15.6 g/dL Hematocrit 44.1 % Mean Corpuscular Volume 93.4 fL Mean Corpuscular Hemoglobin 33.1 pg Mean Corpuscular Hemoglobin Concent 35.4 g/dl RDW Standard Deviation 47.1 fL RDW Coefficient of Variation 13.7 % Platelet Count 138 K/uL Mean Platelet Volume 9.6 fL Prothrombin Time 11.3 SECONDS Prothromb Time International Ratio 1.1 Activated Partial Thromboplast Time 38.0 SECONDS Partial Thromboplastin Ratio 1.5 Sodium Level 136 mmol/L Potassium Level 3.7 mmol/L Chloride Level 100 mmol/L Carbon Dioxide Level 27 mmol/L Anion Gap 9.0 mmol/L Blood Urea Nitrogen 12 mg/dl Creatinine 0.89 mg/dl Est Creatinine Clear Calc Drug Dose 107.7 ml/min Estimated GFR () 108.5 Estimated GFR (Non- 93.6 BUN/Creatinine Ratio 13.7 Random Glucose 114 mg/dl Calcium Level 8.8 mg/dl Medical Emergencies . Who to Call and When: Medical Emergencies: If at any time you feel your situation is an emergency, please call 911 immediately. . Non-Emergent Contact Non-Emergency issues call your: Primary Care Provider Call Non-Emergent contact if: you have a fever, your pain is unusual for you, your pain is concerning you, you have any medication questions . Past History Medical & Surgical History: (1) DVT (deep venous thrombosis) (2) Influenza A (3) Seizure disorder (4) SBO (small bowel obstruction) (5) Hx of brain surgery . "Provider Documentation" section prepared by Zunlida Bowling. VTE Core Measure Inpt VTE Proph given/why not?: Enoxaparin (Lovenox)SQ
--- NOTE | 2016-09-22 11:59 | Discharge Summary ---
Discharge Summary Admission Date: Sep 21, 2016 at 10:05 Discharge Date: Sep 22, 2016 Discharge Disposition: Home Principal Diagnosis: DVT of left lower extremity Problems/Secondary Diagnoses: 1. Influenza A 2. Seizure disorder 3. Elevated Phenytoin level 4. Mediastinal adenopathy Immunizations: Have You Had Influenza Vaccine: Yes History of Tetanus Vaccine?: Yes History of Pneumococcal: No History of Hepatitis B Vaccine: No Procedures: CHEST 2 VIEWS ROUTINE CLINICAL HISTORY: Cough. COMPARISON STUDY: Chest radiograph September 27, 2015. FINDINGS: Lung volumes are diminished. Elevation of the right hemidiaphragm is unchanged. There is no pneumothorax. There is no evidence for pulmonary edema. Linear left basilar opacity is suggestive of atelectasis. Right lower lung opacity also likely reflects atelectasis. IMPRESSION: 1. Diminished lung volumes with elevation of the right hemidiaphragm which is unchanged since prior exam. 2. Linear bibasilar opacities which favor atelectasis. Electronically signed by: Jd Gonzalez M.D. 09/21/2016 7:42 AM The status of this report is Signed. Draft = Not yet reviewed or approved by Radiologist. Signed = Reviewed and approved by Radiologist. ULTRASOUND LEFT VENOUS DOPP LOWER EXT UNILAT CLINICAL HISTORY: Left lower extremity swelling COMPARISON STUDY: No previous studies for comparison. FINDINGS: There is extensive left lower extremity acute deep venous thrombus. There is thrombus extending from the common femoral vein to the calf with involvement of the common femoral superficial femoral and popliteal veins. IMPRESSION: Extensive left lower extremity DVT with involvement of the common femoral, superficial femoral, and popliteal veins. The common femoral thrombus measures 1 cm diameter Electronically signed by: Daren Manrique M.D. 09/21/2016 7:40 AM The status of this report is Signed. Draft = Not yet reviewed or approved by Radiologist. Signed = Reviewed and approved by Radiologist. CT ANGIOGRAM OF THE CHEST CLINICAL HISTORY: Hypoxia. Extensive DVT. Suspected pulmonary embolism. COMPARISON STUDY: Chest x-ray dated 09/21/2016 TECHNIQUE: Following the IV administration of 96 mL of Optiray-320, CT angiogram of the thorax was performed from the thoracic inlet to the lung bases utilizing the pulmonary embolus protocol. Images are reviewed in the axial, sagittal, and coronal planes. IV contrast was administered without complication. MIP imaging was performed. CT DOSE: 560.78 mGy.cm FINDINGS: There is an enlarged right paratracheal lymph node measuring 13 mm. There is an enlarged left prevascular lymph node measuring 12 mm. There is an enlarged subcarinal lymph node measuring 11 mm. There are borderline enlarged hilar lymph nodes. Atheromatous changes are present within the thoracic aorta most pronounced the level of the arch. There is no evidence of thoracic aortic aneurysm. Evaluation of pulmonary arteries is significantly limited due to respiratory motion artifact. No central emboli are visualized. No pleural effusions are visualized. There are bilateral atelectatic type changes. There is elevation of the right hemidiaphragm. There is no lobar consolidation There are right renal parapelvic cysts versus mild hydronephrosis. IMPRESSION: 1. Technically limited study secondary to respiratory motion artifact 2. No central pulmonary emboli identified 3. Mild mediastinal lymphadenopathy 4. Elevation right hemidiaphragm, low lung volumes, and bilateral atelectatic changes Electronically signed by: Daren Manrique M.D. 09/21/2016 11:49 AM The status of this report is Signed. Draft = Not yet reviewed or approved by Radiologist. Signed = Reviewed and approved by Radiologist Consultations: Pulmonary- Dr. Nj Neurology- Dr. Irizarry (Zunilda Bowling, KIKA) Medication Reconciliation New Medications: Phenytoin Sodium (Dilantin) 100 Mg Cap 1 CAP PO QAM for 30 Days, #90 CAP 3 Refills Phenytoin Sodium (Dilantin) 100 Mg Cap 2 CAP PO QPM for 30 Days, #90 CAP Enoxaparin (Enoxaparin Sodium) 100 Mg/Ml Inj 100 MG SQ Q12 for 5 Days, #10 SYR Oseltamivir Phosphate (Tamiflu) 75 Mg Cap 75 MG PO BID for 4 Days, #8 TABS Warfarin Sod (Coumadin) 5 Mg Tab 5 MG PO DAILY@16 for 30 Days, #30 TAB Continued Medications: Dextromethorphan-Guaifenesin (Coricidin Hbp Chest Conge) 1 Cap Cap 1 CAP PO DIRECTED Ibuprofen (Motrin) 600 Mg Tab 600 MG PO Q6H PRN for Pain, TAB Lamotrigine (Lamictal) 200 Mg Tab 200 MG PO AMPM, TAB Lamotrigine (Lamictal) 25 Mg Tab 1 TAB PO BID for 30 Days, #60 TAB 1 Refill Discontinued Medications: Phenytoin Sodium (Dilantin) 100 Mg Cap 200 MG PO BID TAKE AT 8AM/8PM Discharge Exam Review of Systems: Constitutional: No chills, No fatigue, No fever, No sweats, No weakness Respiratory: + cough, No hemoptysis, No shortness of breath, No sputum, No wheezing Cardiovascular: + edema, No chest pain, No palpitations Abdomen: No constipation, No diarrhea, No nausea, No pain, No vomiting Musculoskeletal: + swelling, No calf pain, No joint pain, No muscle pain Genitourinary - Male: No dysuria, No hematuria Neurologic: No numbness/tingling, No weakness Psychiatric: No anxiety, No depression symptoms Hematologic / Lymphatic: No abnormal bleeding/bruising Integumentary: No itch, No new/changing skin lesions, No rash Physical Exam: General Appearance: no apparent distress Eyes: normal inspection, PERRL ENT: hearing grossly normal Neck: supple Respiratory/Chest: lungs clear, no respiratory distress, no accessory muscle use Cardiovascular: regular rate, rhythm, normal peripheral pulses Abdomen / GI: normal bowel sounds, non tender, soft Extremities: + swelling (+1 pitting edema of left lower extremity ) Neurologic/Psychiatric: alert, normal mood/affect, oriented x 3 (Zunilda Bowling, PA-C) Hospital Course 60 y/o male, with PMHx of glioblastoma s/p resection, grand mal seizures, who presented to the ED for flu-like symptoms. Incidentally, an extensive left lower extremity DVT was found. Left lower extremity DVT: -Bridge Lovenox 1mg/kg q12 hrs with Coumadin 5 mg PO daily x5 days until INR > 2. (Started 09/21) -CT of chest for PE negative -Follow PTT/PT/INR At discharge, patient and was given Lovenox teaching. Patient was given script for INR/PT on 09/23 with results forwarded to Dr. Allison Flu-like symptoms, Influenza A positive: -Supportive care -Tamiflu 75 mg PO BID x5 days -Follow CBC and PRP Mediastinal adenopathy found on chest CT: -Consulted pulmonary. Recommended follow-up chest CT in 4 months with follow-up appointment 1 week after having the chest CT. Case management is working on scheduling this. Seizure disorder: -Continue Lamictal 225 mg PO BID -Continue Dilantin 200 mg PO BID --Dilantin level of 24.9. Spoke with Dr. Irizarry; 1/5 morning dose held. Resume 200 mg PO QPM, decrease morning dose to 100 mg PO QAM. Script given for Phenytoin level on 09/26 with results forwarded to Dr. Irizarry. -Follows with Dr. Irizarry Irregular mole on back: -Dr. Caraballo willing to see patient directly in office after discharged from hospital. Patient declined seeing dermatology, stating "there is no cancer in my body. God has taken care of me." It was HIGHLY recommended to patient that he see dermatology, but he refused. GI Prophylaxis: -Maalox PRN -IV Zofran PRN -Colace and/or Milk of Mag PRN DVT prophylaxis: -Lovenox 1mg/kg q12 Blister Pack Operator: -Patient has no PCP. Will need to establish care for routine follow-ups, especially with history of Glioblastoma. Needs colonoscopy -Help with cost/option of coagulation therapy Code Status: -LEVEL V, DNR Total Time Spent: Greater than 30 minutes This includes examination of the patient, discharge planning, medication reconciliation, and communication with other providers. (Zunilda Bowling ., NEGROC) Discharge Instructions Please refer to the electronic Patient Visit Report (Discharge Instructions) for additional information. (Zunilda Bowling PA-C) Follow-Up Please follow-up with your PCP within 5-7 days. Please follow-up/keep all of your subspecialty appointments. (Zunilda Bowling, NEGROC) Additional Copies To Kvng Allison M.D. Reviewed: Pt Seen/Exam by , JOJO Notes, Labs, RAD (Marcia Gomez MD) History Agree with above PA Discharge summary/ROS. Pt doing well on day of discharge. No complaints. (Marcia Gomez MD) All Other Systems: Reviewed and Negative (Marcia Gomez MD) General Appearance: WD/WN, no apparent distress Eye Exam: bilateral eye normal inspection Neck: trachea midline Respiratory: lungs clear, normal breath sounds, no respiratory distress, no accessory muscle use Cardiovascular: regular rate, rhythm, no gallop, no murmur, other (left leg with 2+ pitting edema to knee) Gastrointestinal: normal bowel sounds, non tender, soft Neurologic/Psychiatric: alert, normal mood/affect Skin Characteristics: normal color (Marcia Gomez MD) Assessment/Plan Agree with above PA A/P with the following exceptions/additions: DVT LLE-extensive clot formation, reports sedentary the last month or so and with baseline left sided weakness, probable cause of his DVT. But does have a h/o GBM, and has an abnormal appearing skin lesion and lymphadenopathy on chest CT. He is not anemic so colon CA most likely not underlying, however, I do still recommend colonoscopy screening. He has some mediastinal and hilar adenopathy on chest CT but this is most likely reactive to influenza. Yet should have repeat CT chest in 4 mo and f/u with Pulm then. Skin lesion on upper back probably a SCC or BCC but could be nonpigmented melanoma, pt declined biopsy or DERM evaluation. 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 I called to d/w Dr. Irizarry on the phone who agreed that although the risk is there, pt is fairly remote from his surgeries and the risk of not anticoagulating him far outweighs the risk of bleeding. In d/w and pt, we will proceed with coumadin as it is reversible in case of bleed, and cheaper. She said he would be willing to go for lab testing frequently for this condition. Will overlap Lovenox with coumadin x 5 days and stop after INR>2 (Marcia Gomez MD)
[2016-09-22 15:57] VITALS: BP 130/82; PULSE 102; TEMP 38.1; O2SAT 91
[2016-09-22] MEDS ORDERED: WARFARIN SOD 5 MG TAB PO SCH (16:00)
[2016-09-22 18:52] VITALS: BP 130/82; PULSE 102; TEMP 38.1; O2SAT 91
[2017-09-01] MEDS ORDERED: LAMO200T35 PO (06:09)
== END 2016-09-22 19:20 | disposition home or self-care (01) | DRG 301 ==
LOC: ENRESERVTM → ENRESERVDT → C.EDB 06:33 → UNDOADMIN 10:05 → C.MS4W 10:05
PROVIDERS: ADMIT Family Medicine; ATTEND Family Medicine
DX: I82.402 Acute embolism and thrombosis of unspecified deep veins of left lower extremity (principal); G40.909 Epilepsy, unspecified, not intractable, without status epilepticus; J09.X2 Influenza due to identified novel influenza A virus with other respiratory manifestations; R79.1 Abnormal coagulation profile; R59.0 Localized enlarged lymph nodes; Z85.841 Personal history of malignant neoplasm of brain; D22.9 Melanocytic nevi, unspecified; J98.6 Disorders of diaphragm; G47.33 Obstructive sleep apnea (adult) (pediatric); Z86.711 Personal history of pulmonary embolism; Z79.1 Long term (current) use of non-steroidal anti-inflammatories (NSAID); Z66 Do not resuscitate; Z79.899 Other long term (current) drug therapy

== ENCOUNTER → 2016-09-26 | Outpatient (CLI) | payer OTHER ==
[~2016-09-26] MED LIST changes: +CMD5 PO; +DEXTCAP23 PO; +DLN100 PO; +IBUP600T44 PO; +LAMO200T38 PO; -LORA-741 PO; +LVNIS100 SQ; -PHN/100 PO; +TMF75 PO
--- NOTE | 2016-09-27 13:29 | CODING QUERY NO DIAGNOSIS ---
TREATMENT RENDERED WITHOUT A DIAGNOSIS To promote full compliance with coding requirements relating to patient care, physician participation is requested in all cases of laundry helper uncertainty. Please assist us with providing a diagnosis/symptom for the test(s) below: A diagnosis/symptom was not documented on your Order. A valid diagnosis/symptom is required to bill all insurances. Please remember that we are unable to code a diagnosis of rule out, probable, possible, questionable, or suspected. Tests that require a diagnosis: DOS: 09/26/15 * PHENYTOIN LEVEL DIAGNOSIS: Provider Signature: Date: Thank you [facility] Information Management Once completed, please kindly fax back to [phone] For questions please call [phone]
== END | disposition home or self-care (01) ==
LOC: C.LABPVFM 08:28
PROVIDERS: ATTEND Psychiatry & Neurology Neurology
DX: G40.209 Localization-related (focal) (partial) symptomatic epilepsy and epileptic syndromes with complex partial seizures, not intractable, without status epilepticus (principal)

== ENCOUNTER → 2016-10-19 | Outpatient (CLI) | payer OTHER | END | disposition home or self-care (01) | LOC: C.LABPVFM 08:17 | PROVIDERS: ATTEND Psychiatry & Neurology Neurology | DX: G40.209 Localization-related (focal) (partial) symptomatic epilepsy and epileptic syndromes with complex partial seizures, not intractable, without status epilepticus (principal) ==

== ENCOUNTER → 2017-02-28 | Outpatient (CLI) | payer OTHER ==
--- NOTE | 2017-02-28 11:03 | DIAGNOSTIC IMAGING REPORT ---
LEFT LOWER EXTREMITY VENOUS DOPPLER HISTORY: Follow-up left leg DVT. COMPARISON STUDY: Left leg venous Doppler 09/21/2016. FINDINGS: The left common femoral vein is now patent. There is improvement in the nonocclusive thrombus within the left superficial femoral, popliteal, and posterior tibial veins. The peroneal and anterior tibial veins are patent. IMPRESSION: Improvement in the left lower extremity DVT as described above. Electronically signed by: Tal Harris M.D. 02/28/2017 11:02 AM Dictated Date/Time: 02/28/2017 10:59 AM
== END | disposition home or self-care (01) ==
LOC: C.ULTR 09:35
PROVIDERS: ATTEND Family Medicine
DX: I82.812 Embolism and thrombosis of superficial veins of left lower extremity (principal)

== ENCOUNTER → 2017-04-07 | Outpatient (CLI) | payer OTHER ==
[2017-04-07 13:01] LABS: BASO % 0.4 %; BASO ABS # 0.02 K/uL (0-0.2); COMPLETE YES; EOS % 1.9 %; HEMATOCRIT 44.8 % (42-52); IG% 0.2 %; LYMPH % 23.5 %; LYMPH ABS # 1.12 K/uL (1.2-3.4); MEAN CELL VOLUME 96.6 fL (80-100); MEAN CORPUSCULAR HEMOGLOBIN 32.8 pg (25-34); MEAN CORPUSCULAR HGB CONC 33.9 g/dl (32-36); MEAN PLATELET VOLUME 9.7 fL (7.4-10.4); MONO % 8.8 %; NEUT % 65.2 %; PLATELET COUNT 186 K/uL (130-400); RED BLOOD COUNT 4.64 M/uL (4.7-6.1); WHITE BLOOD COUNT 4.76 K/uL (4.8-10.8)
[2017-04-07 13:14] LABS: ALT/SGPT 26 U/L (12-78); AST/SGOT 15 U/L (15-37); BLOOD UREA NITROGEN 15 mg/dl (7-18); BUN/CREATININE RATIO 15.1 (10-20); CALCIUM 9.2 mg/dl (8.5-10.1); CARBON DIOXIDE 29 mmol/L (21-32); CHLORIDE 109 mmol/L (98-107); GLUCOSE 92 mg/dl (70-99); SODIUM 142 mmol/L (136-145)
[2017-04-07 13:26] LABS: ALKALINE PHOSPHATASE 181 U/L (45-117)
== END | disposition home or self-care (01) ==
LOC: C.LABPVFM 08:52
PROVIDERS: ATTEND Psychiatry & Neurology Neurology
DX: G40.209 Localization-related (focal) (partial) symptomatic epilepsy and epileptic syndromes with complex partial seizures, not intractable, without status epilepticus (principal)

== ENCOUNTER 2017-09-01 17:33 | Emergency (ER) | payer OTHER ==
[~2017-09-01] VITALS: Ht 177.8 cm; Wt 96.4 kg
[~2017-09-01 17:33] MED LIST changes: +LAMO200T35 PO; -LAMO200T38 PO
[2017-09-01 17:41] VITALS: Ht 177.8 cm; Wt 96.4 kg
[2017-09-01] MEDS ORDERED: XYLOCAINE 1%/SOD BICARB 20 ML VIAL INFIL ONE (18:00)
--- NOTE | 2017-09-01 18:38 | DIAGNOSTIC IMAGING REPORT ---
L SHOULDER MIN 2 VIEWS ROUTINE CLINICAL HISTORY: 61 years-old Male presenting with L shoulder pain. TECHNIQUE: Internal rotation, external rotation, and Grashey views of the left shoulder were obtained. COMPARISON: Correlation made to chest x-ray from 09/21/2016. FINDINGS: Degenerative changes of the glenohumeral joint with inferior osteophytosis noted at the inferior femoral head. Joint spaces preserved. Glenohumeral and acromioclavicular joints congruent. No acute fracture or malalignment. Visualized portion of the left hemithorax is normal. IMPRESSION: No acute osseous injury of the left shoulder. Degenerative changes of the glenohumeral joint. Electronically signed by: Jose Bah M.D. 09/01/2017 6:37 PM Dictated Date/Time: 09/01/2017 6:35 PM
--- NOTE | 2017-09-01 18:40 | DIAGNOSTIC IMAGING REPORT ---
L CLAVICLE CLINICAL HISTORY: 61 years-old Male presenting with L clavicle pain/swelling. TECHNIQUE: Apical lordotic and frontal views of the left clavicle were obtained. COMPARISON: Chest x-ray from 09/21/2016. FINDINGS: Obliquely oriented fracture plane suspected across the superior medial left clavicle. No disruption of the acromioclavicular joint. The sternoclavicular joint is incompletely assessed. IMPRESSION: Findings suspicious for fracture of the proximal metadiaphysis of the left clavicle. Electronically signed by: Jose Bah M.D. 09/01/2017 6:38 PM Dictated Date/Time: 09/01/2017 6:37 PM
[2017-09-01] MEDS ORDERED: VLT50 PO (18:42)
[2017-09-01] MEDS ORDERED: LMC25 PO (18:42)
[2017-09-01] MEDS ORDERED: PHN/100 PO (18:42)
[2017-09-01] MEDS ORDERED: ATV5X PO (18:42)
--- NOTE | 2017-09-01 18:42 | DIAGNOSTIC IMAGING REPORT ---
L HAND MIN 3 VIEWS ROUTINE CLINICAL HISTORY: 61 years-old Male presenting with L hand pain. TECHNIQUE: Frontal, oblique, and lateral views of the left hand were obtained. COMPARISON: None. FINDINGS: Deformity of the fourth and fifth metacarpals suggest prior fractures. An excess stenosis/osteochondroma may be present at the head of the fifth metacarpal versus posttraumatic heterotopic ossification. No convincing evidence of an acute fracture. No malalignment. No advanced degenerative change. Atherosclerosis noted. IMPRESSION: No convincing evidence of acute osseous injury Electronically signed by: Jose Bah M.D. 09/01/2017 6:40 PM Dictated Date/Time: 09/01/2017 6:39 PM
[2017-09-01] MEDS ORDERED: ACET-1256 PO (18:43)
[2017-09-01] MEDS ORDERED: OXYCODONE HCL IR 5 MG TAB (IMMEDIATE RELEASE) PO STA (19:19)
--- NOTE | 2017-09-01 19:35 | DIAGNOSTIC IMAGING REPORT ---
L UPPER EXTREMITY WITHOUT CLINICAL HISTORY: 61 years-old Male presenting with EVAL L MEDIAL CLAVICLE FX, fall. TECHNIQUE: Multidetector CT of the left clavicle/left shoulder was performed without the use of intravenous contrast. IV contrast: None. A dose lowering technique was used consistent with the principles of ALARA (as low as reasonably achievable). COMPARISON: Correlation made to plain radiograph performed earlier the same day. CT DOSE (mGy.cm): The estimated cumulative dose is 1181.99 mGy.cm. FINDINGS: Service Crew Supervisor topogram: Unremarkable. Mildly displaced and angulated fracture of the proximal metaphysis of the clavicle. There is 11 mm of foreshortening. A prominent butterfly fracture fragment may be present along the anterior superior aspect. Angulation is apex anterior. The acromioclavicular joint is intact. The sternoclavicular joint is intact. A nondisplaced fracture plane approaches the articular surface but does not clearly extend into the sternoclavicular joint (series 3 image 32). No other fracture is identified. Dependent atelectasis. IMPRESSION: Mildly displaced, angulated, and foreshortened fracture of the proximal metaphysis of the clavicle. Electronically signed by: Jose Bah M.D. 09/01/2017 7:34 PM Dictated Date/Time: 09/01/2017 7:32 PM
--- NOTE | 2017-09-01 20:07 | EMERGENCY ROOM VISIT NOTE ---
ED Visit Note First contact with patient: 18:51 The patient was seen and examined with Sb Vázquez PA-C. I agree with the history, physical and findings. Please see the note for disposition and details.
[2017-09-01] MEDS ORDERED: CEPH500C PO (20:26)
[2017-09-01] MEDS ORDERED: CEPHALEXIN 500MG HOME PACK 1 EA BTL PO ONE (20:30)
--- NOTE | 2017-09-01 20:36 | EMERGENCY ROOM VISIT NOTE ---
History First contact with patient: 17:45 Chief Complaint: FALL Stated Complaint: FELL, LEFT HAND SORE AND COLLARBONE History of Present Illness The patient is a 61 year old male who presents to the Emergency Room with complaints of injuries after he slipped on ice and fell onto his left side. He denies hitting his head. He reports landing on his left elbow primarily, and complains of shoulder pain. He also reports a cut to his left fifth finger. The patient has a history of brain cancer with surgical resection and chronic left-sided weakness. Tetanus immunization is up-to-date. The patient otherwise denies any neck pain, back pain, chest pain, shortness of breath or other injuries from his fall. Review of Systems 10 system review was performed and was negative except for pertinent positives and negatives as indicated in history of present illness Past Medical/Surgical History Medical Problems: (1) Altered mental status (2) DVT (deep venous thrombosis) (3) EPILEPSY UNSPEC W/O MENTION INTRACTABLE EPILEPSY (4) Generalized epilepsy (5) Hx of brain cancer (6) Influenza A (7) MALIG DAWSON BRAIN NOS (8) Malignant neoplasm of brain (9) Meningitis (10) Partial small bowel obstruction (11) SBO (small bowel obstruction) (12) Seizure (13) Seizure (14) Seizure (15) Seizure Surgical Problems: (1) Hx of brain surgery Family History No pertinent family history Social History Smoking Status: Never Smoker Alcohol Use: none Drug Use: none Marital Status: Housing Status: lives with family Occupation Status: disabled Current/Historical Medications Scheduled Cephalexin Monohydrate (Keflex), 500 MG PO TID Lamotrigine (Lamictal), 200 MG PO BID Lamotrigine (Lamotrigine), 25 MG PO BID Phenytoin Sodium (Dilantin), 200 MG PO BID Scheduled PRN Acetaminophen (Tylenol), 500 MG PO UD PRN for Pain or Fever Diclofenac Sod (Diclofenac Sodium Dr), 50 MG PO TID PRN for Pain Lorazepam (Lorazepam), 0.5 MG PO BID PRN for Anxiety Physical Exam Vital Signs Date Time Temp Pulse Resp B/P (MAP) Pulse Ox O2 Delivery O2 Flow Rate FiO2 09/01/17 19:15 107 18 148/132 99 Room Air 09/01/17 17:41 36.6 123 18 143/108 96 Room Air Physical Exam CONSTITUTIONAL: Healthy and well nourished. Alert and oriented X 3 with positive affect. Patient does not appear in any acute distress. HEENT: Normocephalic, atraumatic. Pupils equal, round and reactive. No epistaxis, subconjunctival hemorrhage, hemotympanum, raccoon's eyes or Shah sign. NECK: Full active range of motion without discomfort. No focal tenderness through the central cervical spine or cervical musculature. RESPIRATORY: Clear to auscultation bilaterally with no wheezing, crackles, rhonchi or stridor. CARDIOVASCULAR: Regular rate and rhythm with no murmurs, rubs or gallops. GASTROINTESTINAL: Bowel sounds present in all quadrants. Soft and nontender to palpation. MUSCULOSKELETAL: Examination shows notable edema and tenderness to palpation over the left medial clavicle and sternoclavicular joint. He has mild tenderness over the acromioclavicular joint. Gentle internal and external rotation of the shoulder does not cause discomfort. He also does not have any significant discomfort with mild flexion and extension, or pronation and supination of the elbow. Examination of the left hand shows a 3 cm laceration of the volar fifth finger. The patient has poor flexor and extensor effort because of his chronic left-sided weakness. INTEGUMENTARY: No rash or other significant dermatologic conditions noted. NEUROLOGIC: Left fifth fingertip is sensory intact. Medical Decision & Procedures ER Provider Diagnostic Interpretation: My interpretation of left shoulder and clavicle x-rays does not show any shoulder dislocation or acromial clavicular separation. A medial clavicle fracture is noted. The sternoclavicular joint cannot be visualized on provided views. Radiologist report is as follows: L CLAVICLE CLINICAL HISTORY: 61 years-old Male presenting with L clavicle pain/swelling. TECHNIQUE: Apical lordotic and frontal views of the left clavicle were obtained. COMPARISON: Chest x-ray from 09/21/2016. FINDINGS: Obliquely oriented fracture plane suspected across the superior medial left clavicle. No disruption of the acromioclavicular joint. The sternoclavicular joint is incompletely assessed. IMPRESSION: Findings suspicious for fracture of the proximal metadiaphysis of the left clavicle. My interpretation of left hand x-rays does not show any acute fractures or dislocations. Radiologist report is as follows: L HAND MIN 3 VIEWS ROUTINE CLINICAL HISTORY: 61 years-old Male presenting with L hand pain. TECHNIQUE: Frontal, oblique, and lateral views of the left hand were obtained. COMPARISON: None. FINDINGS: Deformity of the fourth and fifth metacarpals suggest prior fractures. An excess stenosis/osteochondroma may be present at the head of the fifth metacarpal versus posttraumatic heterotopic ossification. No convincing evidence of an acute fracture. No malalignment. No advanced degenerative change. Atherosclerosis noted. IMPRESSION: No convincing evidence of acute osseous injury Noncontrast CT of the left shoulder/clavicle region shows an apex anterior angulated medial clavicle fracture. Radiologist report is as follows: L UPPER EXTREMITY WITHOUT CLINICAL HISTORY: 61 years-old Male presenting with EVAL L MEDIAL CLAVICLE FX, fall. TECHNIQUE: Multidetector CT of the left clavicle/left shoulder was performed without the use of intravenous contrast. IV contrast: None. A dose lowering technique was used consistent with the principles of ALARA (as low as reasonably achievable). COMPARISON: Correlation made to plain radiograph performed earlier the same day. CT DOSE (mGy.cm): The estimated cumulative dose is 1181.99 mGy.cm. FINDINGS: [employer] topogram: Unremarkable. Mildly displaced and angulated fracture of the proximal metaphysis of the clavicle. There is 11 mm of foreshortening. A prominent butterfly fracture fragment may be present along the anterior superior aspect. Angulation is apex anterior. The acromioclavicular joint is intact. The sternoclavicular joint is intact. A nondisplaced fracture plane approaches the articular surface but does not clearly extend into the sternoclavicular joint (series 3 image 32). No other fracture is identified. Dependent atelectasis. IMPRESSION: Mildly displaced, angulated, and foreshortened fracture of the proximal metaphysis of the clavicle. Medications Administered Medications (Trade) Dose Ordered Sig/[place] Route Start Time Stop Time Status Last Admin Dose Admin Oxycodone HCl (Roxicodone Immediate Rel Tab) 5 mg NOW STAT PO 09/01/17 19:19 09/01/17 19:21 DC 09/01/17 19:31 5 MG Procedure Left fifth finger laceration repair was performed under digital block anesthesia after receiving verbal consent from the patient. Using buffered 1% lidocaine without epinephrine, good digital block anesthesia was administered. The peripheral tissue was cleansed with iodine, then the wound was copiously pressure irrigated with 200 mL of normal saline. Exploration of the wound does show involvement of an extensor tendon. The wound was then approximated using 6 -0 nylon simple interrupted sutures 5. Bacitracin dressing and metal splint was applied with the finger in full extension. ED Course Patient history and physical exam were performed. Nurse's notes were reviewed. Vital signs were reviewed, showing an elevated blood pressure 143/108. The patient does not appear in any acute distress, and refused any analgesics while in the emergency department. X-rays of the left shoulder and clavicle shows a medial clavicle fracture. Left hand x-rays were normal. Noncontrast CT of the left shoulder/clavicle region shows an apex anterior fracture of the clavicle with a butterfly fragment. No pneumothorax noted. Left fifth finger laceration repair was also performed under digital block anesthesia. It is noted that the patient did have an extensor tendon laceration on repair. I did explain to the patient that if the finger is not appropriately followed by orthopedics, its possible that the tendon will not heal and the patient will and up with a flexion deformity of the finger. The patient reports that he really does not care as "my left arm is useless anyway." The patient was also shown his CT studies and fracture of the clavicle. Similarly, the patient does not feel that he needs to see orthopedics as long as it heals well, again with the same argument that he does not really use his left upper extremity. The patient will be provided a home pack and prescription for Keflex to minimize risk for infection of his finger laceration. The patient was offered prescription oxycodone, but after being warned that it could cause constipation , he refused, stating that when he was in rehabilitation, he had severe constipation. His reports that he received a prescription for diclofenac 50 mg every 8 hours after having a recent dental extraction. If the patient elects not to follow-up with orthopedics, he was instructed to follow-up with his PCP in 2 weeks for suture removal and for a finger and shoulder recheck. The patient was happy with plan of care, voiced understanding of all discharge instructions, and rated his overall discomfort a 3 out of 10 at the time of discharge. The patient was seen and examined by Dr. Payan, ED attending physician who agrees with workup and plan of care. The patient was also advised that his blood pressure was elevated in the emergency department, and instructed to have his blood pressure rechecked when he sees his PCP in 2 weeks. Medical Decision [place] Drug Monitoring Program Search Results: patient reviewed within database, no issues identified Medication Reconcilliation Current Medication List: was personally reviewed by me Blood Pressure Screening Patient's blood pressure: Elevated blood pressure Blood pressure disposition: Referred to PCP Impression Primary Impression: Closed left clavicular fracture Additional Impressions: Laceration of left little finger with tendon involvement Fall due to slipping on ice or snow Elevated blood pressure reading Departure Information Prescriptions Cephalexin Monohydrate (Keflex) 500 Mg Cap 500 MG PO TID for 6 Days, #18 CAP Prov: Sb Vázquez PA 09/01/17 Referrals Kvng Allison M.D. (PCP) Patient Instructions My [facility] Problem Qualifiers Primary Impression: Closed left clavicular fracture Encounter type: initial encounter Clavicle location: sternal end Fracture alignment: anteriorly displaced Qualified Codes: S42.012A - Anterior displaced fracture of sternal end of left clavicle, initial encounter for closed fracture Additional Impressions: Fall due to slipping on ice or snow Encounter type: initial encounter Qualified Codes: W00.9XXA - Unspecified fall due to ice and snow, initial encounter
[2017-09-01 20:43] VITALS: BP 122/87; PULSE 98; TEMP 36.6; O2SAT 99
== END 2017-09-01 20:43 | disposition home or self-care (01) ==
LOC: C.EDB 17:36 → C.EDD 20:43
DX: S42.012A Anterior displaced fracture of sternal end of left clavicle, initial encounter for closed fracture (principal); W00.9XXA Unspecified fall due to ice and snow, initial encounter; S61.217A Laceration without foreign body of left little finger without damage to nail, initial encounter; R41.82 Altered mental status, unspecified; G40.909 Epilepsy, unspecified, not intractable, without status epilepticus; C71.9 Malignant neoplasm of brain, unspecified

== ENCOUNTER 2017-09-06 15:34 | Emergency (ER) | payer OTHER ==
[~2017-09-06] VITALS: Ht 179.1 cm; Wt 98.7 kg
[~2017-09-06 15:34] MED LIST changes: +ACET-1256 PO; +ATV5X PO; +CEPH500C PO; -CMD5 PO; -DEXTCAP23 PO; -DLN100 PO; -IBUP600T44 PO; -LAMO25TA PO; +LMC25 PO; -LVNIS100 SQ; +PHN/100 PO; -TMF75 PO; +VLT50 PO
[2017-09-06 15:40] VITALS: TEMP 36.3; Ht 179.1 cm; Wt 98.7 kg
[2017-09-06] MEDS ORDERED: HYDR-5688 PO (16:32)
--- NOTE | 2017-09-06 16:37 | EMERGENCY ROOM VISIT NOTE ---
History First contact with patient: 15:44 Chief Complaint: FALL Stated Complaint: FALL, WAS SEEN MONDAY, NOW IS MORE PAIN History of Present Illness The patient is a 61 year old male who presents to the Emergency Room with complaints of pain in his left collarbone following a fall. The patient was seen here 5 days ago and diagnosed with a fracture of his left collarbone. The patient states that initially, he declined any pain medication because he was worried he would become constipated. However, the patient states that his pain is not well controlled by Tylenol or ibuprofen and he would like a prescription for pain medication if possible. The patient does report numbness and weakness of the left arm which is residual from a brain surgery. The patient had a glioblastoma removed several years ago. He does report some increased tingling in the left leg, but states he feels this is due to his recent injury and that he is sitting more. He is not concerned about this today. He does report that he has a history of constipation when taking narcotic medications. He denies any shortness of breath or worsening pain. Review of Systems A complete 10 point review of systems was reviewed with the patient with pertinent positives and negatives as per history of present illness. All else were negative. Past Medical/Surgical History Medical Problems: (1) Altered mental status (2) DVT (deep venous thrombosis) (3) EPILEPSY UNSPEC W/O MENTION INTRACTABLE EPILEPSY (4) Generalized epilepsy (5) Hx of brain cancer (6) Influenza A (7) MALIG DAWSON BRAIN NOS (8) Malignant neoplasm of brain (9) Meningitis (10) Partial small bowel obstruction (11) SBO (small bowel obstruction) (12) Seizure (13) Seizure (14) Seizure (15) Seizure Surgical Problems: (1) Hx of brain surgery Family History No pertinent family history Social History Smoking Status: Never Smoker Alcohol Use: none Drug Use: none Marital Status: Housing Status: lives with family Occupation Status: disabled Current/Historical Medications Scheduled Cephalexin Monohydrate (Keflex), 500 MG PO TID Lamotrigine (Lamictal), 200 MG PO BID Lamotrigine (Lamotrigine), 25 MG PO BID Phenytoin Sodium (Dilantin), 200 MG PO BID Scheduled PRN Acetaminophen (Tylenol), 500 MG PO UD PRN for Pain or Fever Diclofenac Sod (Diclofenac Sodium Dr), 50 MG PO TID PRN for Pain Hydrocodone/Acetaminophen 5MG/325MG (Boykin 5MG/325MG), 1-2 TABLET PO Q4H PRN for Pain Lorazepam (Lorazepam), 0.5 MG PO BID PRN for Anxiety Physical Exam Vital Signs Date Time Temp Pulse Resp B/P (MAP) Pulse Ox O2 Delivery O2 Flow Rate FiO2 09/06/17 16:55 84 18 148/87 97 09/06/17 15:40 36.3 87 18 162/96 97 Room Air Physical Exam VITALS: Vitals are noted on the nurse's note and reviewed by myself. Vital signs stable. GENERAL: This is a 61-year-old male, in no acute distress, nondiaphoretic, well- developed well-nourished. HEART: Regular rate and rhythm without murmurs gallops or rubs. LUNGS: Clear to auscultation bilaterally without wheezes, rales or rhonchi. MUSCULOSKELETAL: Metal finger splint in place on the left fifth finger. Arm sling in place on the left arm. Patient has mild tenderness to palpation over the anterior left clavicle. NEURO: Patient was alert and oriented to person place and time. He is slightly slow to answer some questions and reports difficulty processing speech, especially when spoken quickly. Medical Decision & Procedures Medications Administered Medications (Trade) Dose Ordered Sig/[place] Route Start Time Stop Time Status Last Admin Dose Admin Acetaminophen/ Hydrocodone Bitart (Boykin 5/325 Tab) 1 tab NOW STAT PO 09/06/17 16:49 09/06/17 16:50 DC 09/06/17 16:56 1 TAB Medical Decision The patient was evaluated as above. Previous records were reviewed. The patient was diagnosed with a nondisplaced proximal left clavicle fracture 5 days ago. He declined any pain medication at this time, however now is requesting something for pain. The patient does report he has had some issues with constipation when taking narcotics in the past. For this reason, I did recommend that he start with a half tablet at a time and increase the dosage as necessary. I also recommended that he start taking a stool softener to prevent constipation. He may also use laxatives as needed if he is not able to have a bowel movement. He was given an initial dose of Boykin here and a prescription for the remaining medication. He will follow-up with his primary care provider as needed. He verbalized understanding of my assessment and treatment plan and was discharged home in good condition. Medication Reconcilliation Current Medication List: was personally reviewed by me Blood Pressure Screening Patient's blood pressure: Elevated blood pressure Blood pressure disposition: Elevated BP felt to be situational Impression Primary Impression: Closed left clavicular fracture Departure Information Dispostion Home / Self-Care Condition GOOD Prescriptions Hydrocodone/Acetaminophen 5MG/325MG (Boykin 5MG/325MG) Tab 1-2 TABLET PO Q4H Y for Pain, #15 TAB For Initial Treatment Prov: Liliam Poole PA-C 09/06/17 Referrals Kvng Allison M.D. (PCP) Patient Instructions My [facility] Additional Instructions You have been prescribed Boykin to be used for pain control. Take 1-2 tablets every 4-6 hours as needed for pain. You may want to start with a half tablet at a time to minimize side effects. This is a narcotic medication. You cannot drive or consume alcohol while on this medicine. This medicine should only be used for pain that cannot be controlled with [id number] pain medicines. You should start taking a stool softener along with a narcotic to prevent constipation. If you do not have a bowel movement for several days, you may also use a laxative like miralax, dulcolax, or milk of magnesia. You may also use Tylenol and ibuprofen as needed for pain. Follow-up with your primary care provider for further evaluation and treatment. Return to the emergency room with worsening pain, short of breath or any other new/concerning symptoms. Problem Qualifiers Primary Impression: Closed left clavicular fracture Encounter type: initial encounter Clavicle location: sternal end Fracture alignment: nondisplaced Qualified Codes: S42.018A - Nondisplaced fracture of sternal end of left clavicle, initial encounter for closed fracture
[2017-09-06] MEDS ORDERED: HYDROCODONE/ACETAMOPHEN 5/325MG TAB PO STA (16:49)
[2017-09-06] MEDS ORDERED: EMPTY 8 DRAM VIAL ONE (16:51)
[2017-09-06 16:55] VITALS: BP 148/87; PULSE 84; O2SAT 97
== END 2017-09-06 16:58 | disposition home or self-care (01) ==
LOC: C.EDB 15:37
DX: S42.018A Nondisplaced fracture of sternal end of left clavicle, initial encounter for closed fracture (principal); W19.XXXA Unspecified fall, initial encounter; Y92.9 Unspecified place or not applicable; Z86.718 Personal history of other venous thrombosis and embolism; G40.909 Epilepsy, unspecified, not intractable, without status epilepticus; Z85.841 Personal history of malignant neoplasm of brain; Z79.899 Other long term (current) drug therapy

== ENCOUNTER → 2017-10-13 | Outpatient (CLI) | payer OTHER ==
[~2017-10-13] MED LIST changes: -CEPH500C PO; +HYDR-5688 PO
[2017-10-13 12:50] LABS: BASO % 0.4 %; BASO ABS # 0.03 K/uL (0-0.2); EOS % 1.9 %; EOS ABS # 0.13 K/uL (0-0.5); HEMATOCRIT 46.4 % (42-52); HEMOGLOBIN 16.2 g/dL (14.0-18.0); IG# 0.02 K/uL (0.00-0.02); LYMPH % 21.9 %; LYMPH ABS # 1.48 K/uL (1.2-3.4); MEAN CELL VOLUME 97.3 fL (80-100); MEAN CORPUSCULAR HGB CONC 34.9 g/dl (32-36); MEAN PLATELET VOLUME 9.6 fL (7.4-10.4); MONO % 7.7 %; MONO ABS # 0.52 K/uL (0.11-0.59); NEUT % 67.8 %; NEUT ABS # 4.59 K/uL (1.4-6.5); PLATELET COUNT 198 K/uL (130-400); RED CELL DISTRIBUTION WIDTH CV 13.2 % (11.5-14.5); RED CELL DISTRIBUTION WIDTH SD 47.2 fL (36.4-46.3); WHITE BLOOD COUNT 6.77 K/uL (4.8-10.8)
[2017-10-13 13:27] LABS: ALBUMIN 3.9 gm/dl (3.4-5.0); ALT/SGPT 51 U/L (12-78); AST/SGOT 28 U/L (15-37); BLOOD UREA NITROGEN 17 mg/dl (7-18); CALCIUM 9.7 mg/dl (8.5-10.1); CARBON DIOXIDE 29 mmol/L (21-32); CREATININE 1.02 mg/dl (0.60-1.40); GLUCOSE 86 mg/dl (70-99); POTASSIUM 4.1 mmol/L (3.5-5.1); SODIUM 139 mmol/L (136-145)
[2017-10-13 13:29] LABS: ALKALINE PHOSPHATASE 185 U/L (45-117); TOTAL PROTEIN 7.7 gm/dl (6.4-8.2)
== END | disposition home or self-care (01) ==
LOC: C.LABPVFM 08:00
PROVIDERS: ATTEND Psychiatry & Neurology Neurology
DX: G40.209 Localization-related (focal) (partial) symptomatic epilepsy and epileptic syndromes with complex partial seizures, not intractable, without status epilepticus (principal)

== ENCOUNTER 2017-11-06 21:51 | Inpatient (IN) | payer OTHER ==
[~2017-11-06] VITALS: Ht 179.1 cm; Wt 100.4 kg
[2017-11-06] MEDS ORDERED: PHENYTOIN SOD INJ 50 MG/ML 2 ML SYR IV STA (22:00)
[2017-11-06] MEDS ORDERED: SODIUM CHLORIDE 0.9% 1000ML 1,000 ML IV STA (22:03)
[2017-11-06] MEDS ORDERED: SODIUM CHLORIDE 0.9% IV STA (22:13)
[2017-11-06] MEDS ORDERED: PHENYTOIN INFUSION IV STA (22:13)
--- NOTE | 2017-11-06 22:22 | DIAGNOSTIC IMAGING REPORT ---
CHEST ONE VIEW PORTABLE CLINICAL HISTORY: SEIZURE mental status change COMPARISON STUDY: 09/21/2016 FINDINGS: Mild cardiomegaly. Chronic atelectatic change left base. Lungs otherwise appear clear. IMPRESSION: Mild cardiomegaly. Chronic atelectasis left base. The above report was generated using voice recognition software. It may contain grammatical, syntax or spelling errors. Electronically signed by: Hussain Cardona M.D. 11/06/2017 10:21 PM Dictated Date/Time: 11/06/2017 10:20 PM
[2017-11-06 22:44] LABS: HEMATOCRIT 41.8 % (42-52); HEMOGLOBIN 15.2 g/dL (14.0-18.0); LYMPH % 10.1 %; MEAN CELL VOLUME 94.6 fL (80-100); MEAN CORPUSCULAR HEMOGLOBIN 34.4 pg (25-34); MEAN CORPUSCULAR HGB CONC 36.4 g/dl (32-36); MEAN PLATELET VOLUME 9.1 fL (7.4-10.4); MONO % 9.2 %; NEUT % 79.5 %; PLATELET COUNT 152 K/uL (130-400); RED CELL DISTRIBUTION WIDTH CV 13.2 % (11.5-14.5); RED CELL DISTRIBUTION WIDTH SD 45.4 fL (36.4-46.3); WHITE BLOOD COUNT 8.88 K/uL (4.8-10.8)
[2017-11-06 22:45] LABS: BASO % 0.2 %; BASO ABS # 0.02 K/uL (0-0.2); EOS % 0.7 %; EOS ABS # 0.06 K/uL (0-0.5); IG# 0.03 K/uL (0.00-0.02); MONO ABS # 0.82 K/uL (0.11-0.59); NEUT ABS # 7.05 K/uL (1.4-6.5)
[2017-11-06 22:57] LABS: PTT PATIENT 26.9 SECONDS (21.0-31.0)
[2017-11-06 23:10] LABS: BLOOD UREA NITROGEN 11 mg/dl (7-18); CALCIUM 8.9 mg/dl (8.5-10.1); CARBON DIOXIDE 24 mmol/L (21-32); GLUCOSE 114 mg/dl (70-99); POTASSIUM 3.9 mmol/L (3.5-5.1); SODIUM 134 mmol/L (136-145)
[2017-11-06 23:21] LABS: PHOSPHORUS 2.3 mg/dl (2.5-4.9)
--- NOTE | 2017-11-06 23:59 | EMERGENCY ROOM VISIT NOTE ---
History Report prepared by Zay: Ela Silvestre Under the Supervision of: Dr. Toan Unger D.O. 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 per ems states 2 seizures at home and 1 on arrival. pt hx of brain tumor and left sided weakness. states he is taking nasal decongestion for a cold. denies cp or sob. 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 The patient has a history of seizures and is on medications which he has been taking. Today , he had 2 seizures at home and 1 in route. He was given Ativan in route. There was no reported fall or injury. He has not complained of neck pain, chest pain, or SOB. He is currently feeling better. He has a history of a brain tumor. He denies any alcohol use. He is currently taking Sudafed and antibiotics for his sinuses. His last seizure was 2 years ago. 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 A total of 10 systems reviewed and were otherwise negative. Past Medical & Surgical Medical Problems: (1) Altered mental status (2) DVT (deep venous thrombosis) (3) EPILEPSY UNSPEC W/O MENTION INTRACTABLE EPILEPSY (4) Generalized epilepsy (5) Hx of brain cancer (6) Increasing frequency of seizure activity (7) Influenza A (8) MALIG DAWSON BRAIN NOS (9) Malignant neoplasm of brain (10) Meningitis (11) Partial small bowel obstruction (12) SBO (small bowel obstruction) (13) Seizure (14) Seizure (15) Seizure (16) Seizure Surgical Problems: (1) Hx of brain surgery Family History No pertinent family history Social History Smoking Status: Never Smoker Alcohol Use: none Drug Use: none Marital Status: Housing Status: lives with family Occupation Status: disabled Current/Historical Medications Scheduled Azithromycin (Zithromax Z-Thong), Unknown Dose PO UD Lamotrigine (Lamictal), 200 MG PO BID Lamotrigine (Lamotrigine), 25 MG PO BID Phenytoin Sodium (Dilantin), 200 MG PO BID Pseudoephedrine Hcl (Sudafed Nasal Decongestan), 30 MG PO DIRECTED Scheduled PRN Acetaminophen (Tylenol), 500 MG PO UD PRN for Pain or Fever Lorazepam (Lorazepam), 0.5 MG PO BID PRN for Anxiety Allergies Coded Allergies: No Known Allergies (Verified , `, 11/07/17) Physical Exam Vital Signs Date Time Temp Pulse Resp B/P (MAP) Pulse Ox O2 Delivery O2 Flow Rate FiO2 11/07/17 02:00 94 11/07/17 01:50 101 20 126/96 98 Nasal Cannula 4.0 11/07/17 00:37 102 20 142/95 98 Nasal Cannula 4.0 11/06/17 23:22 110 20 145/92 96 Nasal Cannula 4.0 11/06/17 22:06 37.4 125 18 138/99 90 Room Air 11/06/17 22:06 37.4 125 138/99 90 Room Air 11/06/17 22:06 90 Room Air 11/06/17 22:06 90 Room Air 11/06/17 22:05 120 Physical Exam GENERAL: Patient is listless, slow to answer questions, but answers appropriately. EYES: The conjunctivae are clear. The pupils are round and reactive. EARS, NOSE, MOUTH AND THROAT: The nose is without any evidence of any deformity. Mucous membranes are moist tongue is midline NECK: The neck is nontender and supple. RESPIRATORY: Normal respiratory effort is noted there is no evidence of wheezing rhonchi or rales CARDIOVASCULAR: Tachycardic but regular. No definite murmur noted to auscultation. GASTROINTESTINAL: The abdomen is soft. Bowel sounds are present in all quadrants. Abdomen is nontender MUSCULOSKELETAL/EXTREMITIES: There is no evidence of gross deformity full range of motion is noted in the hips and shoulders SKIN: There is pedal edema bilaterally. NEUROLOGIC: Patient is oriented to person, place, and situation. Strength diminished in left upper and left lower extremities. Medical Decision & Procedures ER Provider Diagnostic Interpretation: X-ray results as stated below per interpretation by me and the radiologist. Radiology results as stated below per my review and [facility] radiologist interpretation: CHEST ONE VIEW PORTABLE CLINICAL HISTORY: SEIZURE mental status change COMPARISON STUDY: 09/21/2016 FINDINGS: Mild cardiomegaly. Chronic atelectatic change left base. Lungs otherwise appear clear. IMPRESSION: Mild cardiomegaly. Chronic atelectasis left base. The above report was generated using voice recognition software. It may contain grammatical, syntax or spelling errors. Electronically signed by: Hussain Cardona M.D. 11/06/2017 10:21 PM Dictated Date/Time: 11/06/2017 10:[address] Head: Comparison 09/27/2015 No intracranial hemorrhage, mass effect or CT evidence of acute infarct Ventricles are unchanged in size, configuration and remain midline Right-sided craniectomy with reconstruction plate and subjacent area of encephalomalacia again noted There is again opacification of the right mastoid and partial opacification of the middle ear Laboratory Results 11/06/17 22:26 Red Blood Count 4.42, Mean Corpuscular Volume 94.6, Mean Corpuscular Hemoglobin 34.4, Mean Corpuscular Hemoglobin Concent 36.4, Mean Platelet Volume 9.1, Neutrophils (%) (Auto) 79.5, Lymphocytes (%) (Auto) 10.1, Monocytes (%) (Auto) 9.2, Eosinophils (%) (Auto) 0.7, Basophils (%) (Auto) 0.2, Neutrophils # (Auto) 7.05, Lymphocytes # (Auto) 0.90, Monocytes # (Auto) 0.82, Eosinophils # (Auto) 0.06, Basophils # (Auto) 0.02 11/06/17 22:26 Test 11/06/17 22:26 11/06/17 22:53 White Blood Count 8.88 K/uL (4.8-10.8) Red Blood Count 4.42 M/uL (4.7-6.1) Hemoglobin 15.2 g/dL (14.0-18.0) Hematocrit 41.8 % (42-52) Mean Corpuscular Volume 94.6 fL (80-100) Mean Corpuscular Hemoglobin 34.4 pg (25-34) Mean Corpuscular Hemoglobin Concent 36.4 g/dl (32-36) Platelet Count 152 K/uL (130-400) Mean Platelet Volume 9.1 fL (7.4-10.4) Neutrophils (%) (Auto) 79.5 % Lymphocytes (%) (Auto) 10.1 % Monocytes (%) (Auto) 9.2 % Eosinophils (%) (Auto) 0.7 % Basophils (%) (Auto) 0.2 % Neutrophils # (Auto) 7.05 K/uL (1.4-6.5) Lymphocytes # (Auto) 0.90 K/uL (1.2-3.4) Monocytes # (Auto) 0.82 K/uL (0.11-0.59) Eosinophils # (Auto) 0.06 K/uL (0-0.5) Basophils # (Auto) 0.02 K/uL (0-0.2) RDW Standard Deviation 45.4 fL (36.4-46.3) RDW Coefficient of Variation 13.2 % (11.5-14.5) Immature Granulocyte % (Auto) 0.3 % Immature Granulocyte # (Auto) 0.03 K/uL (0.00-0.02) Erythrocyte Sedimentation Rate 12 mm/hr (0-14) Prothrombin Time 10.1 SECONDS (9.0-12.0) Prothromb Time International Ratio 1.0 (0.9-1.1) Activated Partial Thromboplast Time 26.9 SECONDS (21.0-31.0) Partial Thromboplastin Ratio 1.0 Anion Gap 12.0 mmol/L (3-11) Est Creatinine Clear Calc Drug Dose 86.3 ml/min Estimated GFR () 84.1 Estimated GFR (Non- 72.6 BUN/Creatinine Ratio 10.1 (10-20) Calcium Level 8.9 mg/dl (8.5-10.1) Phosphorus Level 2.3 mg/dl (2.5-4.9) Magnesium Level 1.8 mg/dl (1.8-2.4) Total Bilirubin 0.3 mg/dl (0.2-1) Direct Bilirubin < 0.1 mg/dl (0-0.2) Aspartate Amino Transf (AST/SGOT) 27 U/L (15-37) Alanine Aminotransferase (ALT/SGPT) 36 U/L (12-78) Alkaline Phosphatase 196 U/L (45-117) Total Protein 7.3 gm/dl (6.4-8.2) Albumin 3.7 gm/dl (3.4-5.0) Thyroid Stimulating Hormone (TSH) 4.100 uIu/ml (0.300-4.500) Phenytoin (Dilantin) Level 20.5 mcg/mL (10-20) Urine Color YELLOW Urine Appearance CLEAR (CLEAR) Urine pH 6.5 (4.5-7.5) Urine Specific [place] 1.012 (1.000-1.030) Urine Protein NEG (NEG) Urine Glucose (UA) NEG (NEG) Urine Ketones NEG (NEG) Urine Occult Blood NEG (NEG) Urine Nitrite NEG (NEG) Urine Bilirubin NEG (NEG) Urine Urobilinogen NEG (NEG) Urine Leukocyte Esterase NEG (NEG) Laboratory results per my review. Medications Administered Medications (Trade) Dose Ordered Sig/[place] Route Start Time Stop Time Status Last Admin Dose Admin Phenytoin Sodium (Dilantin IV) 500 mg NOW STAT IV 11/06/17 22:00 11/06/17 22:02 DC 11/06/17 22:00 500 MG Sodium Chloride 1,000 ml @ 999 mls/hr Q1H1M STAT IV 11/06/17 22:03 11/06/17 23:03 DC 11/06/17 22:31 999 MLS/HR Phenytoin Sodium 500 mg/Sodium Chloride 110 ml @ 660 mls/hr NOW STAT IV 11/06/17 22:13 11/06/17 22:22 DC 11/06/17 22:31 660 MLS/HR ECG Per My Interpretation Indication: tachycardia Rate (beats per minute): 119 Rhythm: sinus tachycardia Findings: no ectopy, other (no acute ST segment abnormality) Comparison ECG Date: 21-Sep-2016 Change: Increased rate otherwise no significant change. ED Course 2159: The patient was evaluated in room C10. A complete history and physical examination were performed. 2200: Dilantin IV 500 mg IV. 2203: NSS 1000 ml @ 999 mls/hr IV. 2213: Phenytoin Sodium 500 mg/Sodium Chloride 110 ml @ 660 mls/hr IV. 0017: Upon reevaluation, the patient is stable. He had had another seizure while he was here. I discussed results and treatment plan with him and his . They verbalize agreement and understanding. The patient will be evaluated for further management and care. 0036: I discussed the patient's case with Dr. Escobedo, [facility] hospitalist. The patient will be evaluated for further management. Medical Decision Prior records/ancillary studies reviewed. Patient placed in seizure precautions immediately upon arrival. Nursing notes reviewed. Additional history obtained from spouse. The patient's history was concerning for a possible seizure. Differential diagnosis: Etiologies such as infection, hypoglycemia, electrolyte abnormalities, cardiac sources, intracerebral event, trauma, toxicologic, neurologic, as well as others were entertained. The patient is a 61-year-old male who presented to the emergency department for an evaluation after having a seizure. The patient has an underlying seizure history but he had multiple seizures at home. This is atypical for his pattern. He also had another seizure prior to arrival. The patient was treated with benzodiazepines. He had another seizure while in the emergency department. I discussed the patient's laboratory and radiographic studies with him and his significant other. Because of the patient's seizure issues I discussed his case with the on-call [facility] hospitalist. They have agreed to evaluate the patient in the emergency department for further management and disposition. The patient was treated with IV Dilantin in the emergency department. Medication Reconcilliation Current Medication List: was personally reviewed by me Blood Pressure Screening Patient's blood pressure: Elevated blood pressure Blood pressure disposition: Elevated BP felt to be situational Consults Time Called: 0033 Consulting Physician: Dr. Escobedo [facility] hospitalist Returned Call: [phone] I discussed the patient's case with him. The patient will be evaluated for further management. Impression Primary Impression: Seizure Scribe Attestation The scribe's documentation has been prepared under my direction and personally reviewed by me in its entirety. I confirm that the note above accurately reflects all work, treatment, procedures, and medical decision making performed by me. Departure Information Dispostion Being Evaluated By Hospitalist Referrals Kvng Allison M.D. (PCP) Patient Instructions My [facility]
[2017-11-07 00:58] LABS: ALBUMIN 3.7 gm/dl (3.4-5.0); AST/SGOT 27 U/L (15-37); TOTAL PROTEIN 7.3 gm/dl (6.4-8.2)
[2017-11-07 01:02] LABS: ALKALINE PHOSPHATASE 196 U/L (45-117); ALT/SGPT 36 U/L (12-78)
[2017-11-07] MEDS ORDERED: LORAZEPAM 0.5 MG TAB PO PRN (01:15)
[2017-11-07] MEDS ORDERED: ACETAMINOPHEN 325 MG TAB PO PRN (01:15)
[2017-11-07] MEDS ORDERED: PSEU30TA3 PO (01:20)
[2017-11-07] MEDS ORDERED: AZITTAB PO (01:21)
--- NOTE | 2017-11-07 01:29 | History and Physical ---
History & Physical Date & Time of Service: Nov 07, 2017 at 01:29 Chief Complaint: Seizure Primary Care Physician: Kvng Allison M.D. History of Present Illness Source: patient, spouse, hospital records The patient is a 61-year-old male who had a total 4 seizures today, preceded by a sense of warmth from is stomach up into his chest, and left hand tingling. His who is with him, reports that he has not had seizures for 2 years . He follows regularly with Dr. Irizarry from neurology.. He has recently been taking Sudafed and an antibiotic which sounds like an azithromycin Z-Thong. He and his reports that he's been taking his seizure medications as directed. Past Medical/Surgical History Medical Problems: (1) EPILEPSY UNSPEC W/O MENTION INTRACTABLE EPILEPSY Status: Chronic (2) Generalized epilepsy Status: Chronic (3) Hx of brain cancer Status: Chronic (4) MALIG DAWSON BRAIN NOS Status: Resolved (5) Malignant neoplasm of brain Status: Resolved (6) Meningitis Status: Resolved (7) Partial small bowel obstruction Status: Resolved (8) SBO (small bowel obstruction) Status: Resolved (9) Seizure Status: Resolved (10) Seizure Status: Resolved (11) Seizure Status: Resolved (12) Seizure Status: Resolved Surgical Problems: (1) Hx of brain surgery Status: Chronic Family History No pertinent family history Social History Smoking Status: Never Smoker Smokeless Tobacco Use: No Alcohol Use: none Drug Use: none Marital Status: Housing status: lives with family Occupational Status: disabled Immunizations History of Influenza Vaccine: Yes History of Tetanus Vaccine?: Yes History of Pneumococcal: No History of Hepatitis B Vaccine: No Multi-Drug Resistant Organisms History of MDRO: No Allergies Coded Allergies: No Known Allergies (Verified , `, 11/07/17) Home Medications Scheduled Azithromycin (Zithromax Z-Thong), Unknown Dose PO UD Lamotrigine (Lamictal), 200 MG PO BID Lamotrigine (Lamotrigine), 25 MG PO BID Phenytoin Sodium (Dilantin), 200 MG PO BID Pseudoephedrine Hcl (Sudafed Nasal Decongestan), 30 MG PO DIRECTED Scheduled PRN Acetaminophen (Tylenol), 500 MG PO UD PRN for Pain or Fever Lorazepam (Lorazepam), 0.5 MG PO BID PRN for Anxiety Review of Systems The patient denies chest pain, palpitations, shortness of breath, dyspnea on exertion, cough, lower extremity swelling, sore throat, fevers, chills, sweats, weight change, fatigue, nausea, vomiting, diarrhea , constipation, abdominal pain, pelvic pain, blood in urine or stool, dysuria, urinary frequency or urgency, loss of consciousness rash, abnormal bruising or bleeding, imbalance, focal or generalized weakness, numbness or tingling in arms or legs, generalized arthralgias or myalgias, back or neck pain, or night sweats. The review of systems is otherwise negative other than for that already noted above, and at least 10 systems have been reviewed. Physical Exam Vital Signs Date Time Temp Pulse Resp B/P (MAP) Pulse Ox O2 Delivery O2 Flow Rate FiO2 11/07/17 00:37 102 20 142/95 98 Nasal Cannula 4.0 11/06/17 23:22 110 20 145/92 96 Nasal Cannula 4.0 11/06/17 22:06 37.4 125 18 138/99 90 Room Air 11/06/17 22:06 37.4 125 138/99 90 Room Air 11/06/17 22:06 90 Room Air 11/06/17 22:06 90 Room Air 11/06/17 22:05 120 The patient is awake, alert and oriented 3, well developed and well nourished, normocephalic and atraumatic, lying in bed and in no acute distress. HEENT--PERRL, EOMI, mucous membranes and oropharynx dry. Neck--supple. No JVD. No bruits. Thyroid normal, trachea midline, no adenopathy. Heart--normal S1 and S2. No murmurs, rubs or gallops. Lungs--clear bilaterally, no respiratory distress, no accessory muscle use. Abdomen--normal bowel sounds and soft. Nontender. Nondistended, no hernias or masses, no organomegaly. Extremities--no cyanosis or clubbing. No edema. There are good distal pulses b/ l. Dermatologic--normal skin turgor, normal color, no abnormal lymph nodes, no rash. Neurologic--cranial nerves II through XII grossly intact. Rheumatologic--normal range of motion. Psychiatric--normal affect. Diagnostics Laboratory Results Results Past 24 Hours Test 11/06/17 22:26 11/06/17 22:53 Range/Units White Blood Count 8.88 4.8-10.8 K/uL Red Blood Count 4.42 4.7-6.1 M/uL Hemoglobin 15.2 14.0-18.0 g/dL Hematocrit 41.8 42-52 % Mean Corpuscular Volume 94.6 80-100 fL Mean Corpuscular Hemoglobin 34.4 25-34 pg Mean Corpuscular Hemoglobin Concent 36.4 32-36 g/dl Platelet Count 152 130-400 K/uL Mean Platelet Volume 9.1 7.4-10.4 fL Neutrophils (%) (Auto) 79.5 % Lymphocytes (%) (Auto) 10.1 % Monocytes (%) (Auto) 9.2 % Eosinophils (%) (Auto) 0.7 % Basophils (%) (Auto) 0.2 % Neutrophils # (Auto) 7.05 1.4-6.5 K/uL Lymphocytes # (Auto) 0.90 1.2-3.4 K/uL Monocytes # (Auto) 0.82 0.11-0.59 K/uL Eosinophils # (Auto) 0.06 0-0.5 K/uL Basophils # (Auto) 0.02 0-0.2 K/uL RDW Standard Deviation 45.4 36.4-46.3 fL RDW Coefficient of Variation 13.2 11.5-14.5 % Immature Granulocyte % (Auto) 0.3 % Immature Granulocyte # (Auto) 0.03 0.00-0.02 K/uL Prothrombin Time 10.1 9.0-12.0 SECONDS Prothromb Time International Ratio 1.0 0.9-1.1 Activated Partial Thromboplast Time 26.9 21.0-31.0 SECONDS Partial Thromboplastin Ratio 1.0 Sodium Level 134 136-145 mmol/L Potassium Level 3.9 3.5-5.1 mmol/L Chloride Level 98 98-107 mmol/L Carbon Dioxide Level 24 21-32 mmol/L Anion Gap 12.0 3-11 mmol/L Blood Urea Nitrogen 11 7-18 mg/dl Creatinine 1.10 0.60-1.40 mg/dl Est Creatinine Clear Calc Drug Dose 86.3 ml/min Estimated GFR () 84.1 Estimated GFR (Non- 72.6 BUN/Creatinine Ratio 10.1 10-20 Random Glucose 114 70-99 mg/dl Calcium Level 8.9 8.5-10.1 mg/dl Phosphorus Level 2.3 2.5-4.9 mg/dl Magnesium Level 1.8 1.8-2.4 mg/dl Total Bilirubin 0.3 0.2-1 mg/dl Direct Bilirubin < 0.1 0-0.2 mg/dl Aspartate Amino Transf (AST/SGOT) 27 15-37 U/L Alanine Aminotransferase (ALT/SGPT) 36 12-78 U/L Alkaline Phosphatase 196 45-117 U/L Total Protein 7.3 6.4-8.2 gm/dl Albumin 3.7 3.4-5.0 gm/dl Thyroid Stimulating Hormone (TSH) 4.100 0.300-4.500 uIu/ml Phenytoin (Dilantin) Level 20.5 10-20 mcg/mL Urine Color YELLOW Urine Appearance CLEAR CLEAR Urine pH 6.5 4.5-7.5 Urine Specific [place] 1.012 1.000-1.030 Urine Protein NEG NEG Urine Glucose (UA) NEG NEG Urine Ketones NEG NEG Urine Occult Blood NEG NEG Urine Nitrite NEG NEG Urine Bilirubin NEG NEG Urine Urobilinogen NEG NEG Urine Leukocyte Esterase NEG NEG Diagnostic Radiology Patient Name: MICHELLE BHAKTA Unit Number: [id number] Dictated: 11/07/17717 Transcribed: 11/07/17717 Printed Date/Time: [~ rep prt dt]/[~ rep prt tm] [~ rep ct labl] - [~ rep ct ivnm] [facility] [place] [address] Dictated: 11/07/17717 Transcribed: 11/07/17717 Printed Date/Time: [~ rep prt dt]/[~ rep prt tm] [~ rep ct labl] - [~ rep ct ivnm] [~ rep ct add3]] CT OF THE HEAD WITHOUT CONTRAST CLINICAL HISTORY: Seizure. COMPARISON STUDY: Head CT September 27, 2015. CT DOSE: 1228.53 mGy.cm TECHNIQUE: Helical axial images of the head were obtained without IV contrast. Automated exposure control was utilized for the study. A dose lowering technique was utilized adhering to the principles of ALARA. FINDINGS: No acute intracranial hemorrhage, midline shift or mass effect is present. The patient is status post right temporoparietal craniotomy. Encephalomalacia within the operative bed is unchanged. Appearance of the brain is unchanged on this exam. Ventricular system is stable. Basilar cisterns are patent. There are no extra-axial collections. There are no findings to suggest acute dural sinus thrombosis or acute territorial infarct. There is mild mucosal thickening of the sinuses. Right mastoid air cells are opacified. This is unchanged. IMPRESSION: 1. No acute intracranial findings. No change in appearance of the brain status post resection. 2. No change in a right mastoid effusion. Mild sinus mucosal thickening. Electronically signed by: Jd Gonzalez M.D. 11/07/2017 7:22 AM Dictated Date/Time: 11/07/2017 7:18 AM The status of this report is Signed. Draft = Not yet reviewed or approved by Radiologist. Signed = Reviewed and approved by Radiologist. <AttendingPhy>Miky Escobedo M.D.</AttendingPhy> <FamilyPhy>Kvng Allison M.D.</FamilyPhy> <PrimaryPhy>Kvng Allison M.D.</PrimaryPhy > <UnitNumber>[id number]</UnitNumber> <VisitNumber>[id number]</VisitNumber> < PatientName>MICHELLE BHAKTA</PatientName> <DateOfBirth>1955</DateOfBirth> <Location>C.[facility]</Location> <ServiceDate>11/06/17</ServiceDate> <MNE>ESIJAMILA</MNE> <OrderingPhy>Toan Unger D.O.</OrderingPhy> <OrderingPhyMNE>f rep ord dr mathews</OrderingPhyMNE> <DictatingPhyMNE>f rep dict dr mathews</DictatingPhyMNE> < CCListMNE>f rep ct reid</CCListMNE> <AdmittingPhyMNE>f pt admit dr mathews</ AdmittingPhyMNE> <AttendingPhyMNE>f pt attend dr mathews</AttendingPhyMNE> <ConsultingPhyMNE>f pt consult dr mne</ConsultingPhyMNE> <FamilyPhyMNE>f pt fam dr mathews</FamilyPhyMNE> <OtherPhyMNE>f pt other dr mathews</OtherPhyMNE> < PrimaryPhyMNE>f pt prim care dr mathews</PrimaryPhyMNE> <ReferringPhyMNE>f pt referring dr mathews</ReferringPhyMNE> Patient Name: MICHELLE BHAKTA Unit Number: [id number] Dictated: 11/06/172219 Transcribed: 11/06/172219 MS Printed Date/Time: [~ rep prt dt]/[~ rep prt tm] [~ rep ct labl] - [~ rep ct ivnm] [facility] Radiology Department [place], [place] [id number] Dictated: 11/06/172219 Transcribed: 11/06/172219 MS Printed Date/Time: [~ rep prt dt]/[~ rep prt tm] [~ rep ct labl] - [~ rep ct ivnm] [~ rep ct add3]] CHEST ONE VIEW PORTABLE CLINICAL HISTORY: SEIZURE mental status change COMPARISON STUDY: 09/21/2016 FINDINGS: Mild cardiomegaly. Chronic atelectatic change left base. Lungs otherwise appear clear. IMPRESSION: Mild cardiomegaly. Chronic atelectasis left base. The above report was generated using voice recognition software. It may contain grammatical, syntax or spelling errors. Electronically signed by: Hussain Cardona M.D. 11/06/2017 10:21 PM Dictated Date/Time: 11/06/2017 10:20 PM The status of this report is Signed. Draft = Not yet reviewed or approved by Radiologist. Signed = Reviewed and approved by Radiologist. <AttendingPhy></AttendingPhy> <FamilyPhy>Kvng Allison M.D.</FamilyPhy > <PrimaryPhy>Kvng Allison M.D.</PrimaryPhy> <UnitNumber>[id number]</ UnitNumber> <VisitNumber>[id number]</VisitNumber> <PatientName>MICHELLE BHAKTA </PatientName> <DateOfBirth>1955</DateOfBirth> <Location>C.[facility]</Location> <ServiceDate>11/06/17</ServiceDate> <MNE>ESINDI</MNE> <OrderingPhy>Toan Unger D.O.</OrderingPhy> <OrderingPhyMNE>f rep ord dr mathews</OrderingPhyMNE> <DictatingPhyMNE>f rep dict dr mathews</DictatingPhyMNE> <CCListMNE>f rep ct mne</ CCListMNE> <AdmittingPhyMNE>f pt admit dr mathews</AdmittingPhyMNE> <AttendingPhyMNE >f pt attend dr mathews</AttendingPhyMNE> <ConsultingPhyMNE>f pt consult dr mathews</ConsultingPhyMNE> <FamilyPhyMNE>f pt fam dr mathews</FamilyPhyMNE> <OtherPhyMNE>f pt other dr mathews</OtherPhyMNE> < PrimaryPhyMNE>f pt prim care dr mathews</PrimaryPhyMNE> <ReferringPhyMNE>f pt referring dr mathews</ReferringPhyMNE> Patient Name: MICHELLE BHAKTA Unit Number: [id number] Dictated: 11/07/17636 Transcribed: 11/07/17636 ARG Printed Date/Time: [~ rep prt dt]/[~ rep prt tm] [~ rep ct labl] - [~ rep ct ivnm] [facility] [place] [place] [address] Dictated: 11/07/17636 Transcribed: 11/07/17636 ARG Printed Date/Time: [~ rep prt dt]/[~ rep prt tm] [~ rep ct labl] - [~ rep ct ivnm] MRI OF THE BRAIN WITHOUT AND WITH IV CONTRAST CLINICAL HISTORY: increased seizure activity COMPARISON STUDY: 01/18/2015 TECHNIQUE: MRI of the brain was performed from the vertex to the skull base utilizing various T1 and T2 weighted sequences. Following the IV administration of 10.4 mL of Gadavist contrast, additional enhanced images were obtained. FINDINGS: Sagittal T1, axial diffusion, proton density and T2 weighted axial, coronal FLAIR, and pre and post axial T1-weighted images were acquired. These were supplemented with post gadolinium coronal T1 weighted images. No intra or extra-axial mass lesions are visualized. Axial diffusion-weighted images reveal no evidence of acute or subacute infarction. There is mild asymmetric ventricular dilatation, finding which is felt to be secondary to volume loss. Proton density T2-weighted and FLAIR images reveal extensive encephalomalacia involving portions the right temporal and occipital lobes. This appears be status post prior tumor resection. There are postcraniotomy changes on the right. There are no abnormal flow voids. There is no evidence of pathologic enhancement. Inflammatory changes are present within the right mastoid. IMPRESSION: 1. Postsurgical changes of a right temporoparietal craniotomy, with extensive posttreatment resection encephalomalacia 2. No evidence of recurrent neoplasm 3. No evidence of acute or subacute infarction 4. Persistent right mastoid effusion Electronically signed by: Daren Manrique M.D. 11/07/2017 6:42 AM Dictated Date/Time: 11/07/2017 6:37 AM The status of this report is Signed. Draft = Not yet reviewed or approved by Radiologist. Signed = Reviewed and approved by Radiologist. <AttendingPhy>Miky Escobedo M.D.</AttendingPhy> <FamilyPhy>Kvng Allison M.D.</FamilyPhy> <PrimaryPhy>Kvng Allison M.D.</PrimaryPhy > <UnitNumber>[id number]</UnitNumber> <VisitNumber>[id number]</VisitNumber> < PatientName>MICHELLE BHAKTA</PatientName> <DateOfBirth>1955</DateOfBirth> <Location>C.2T</Location> <ServiceDate>11/06/17</ServiceDate> <MNE>ESINDI</MNE> <OrderingPhy>Miky Escobedo M.D.</OrderingPhy> <OrderingPhyMNE>f rep ord dr mathews</OrderingPhyMNE> <DictatingPhyMNE>f rep dict dr mathews</DictatingPhyMNE> < CCListMNE>f rep ct vijie</CCListMNE> <AdmittingPhyMNE>f pt admit dr mathews</ AdmittingPhyMNE> <AttendingPhyMNE>f pt attend dr mathews</AttendingPhyMNE> <ConsultingPhyMNE>f pt consult dr mathews</ConsultingPhyMNE> <FamilyPhyMNE>f pt fam dr mathews</FamilyPhyMNE> <OtherPhyMNE>f pt other dr mathews</OtherPhyMNE> < PrimaryPhyMNE>f pt prim care dr mathews</PrimaryPhyMNE> <ReferringPhyMNE>f pt referring dr mathews</ReferringPhyMNE> EKG EKG shows sinus tachycardia at 119 bpm, there are no acute ST T changes Impression Assessment and Plan Increased seizure activity with underlying seizure disorder/ s/p brain tumor resection-- He had already been given Dilantin 500 mg IV by the ED, the drug level was unfortunately checked immediately after the IV dose was given, and therefore is not accurate. Continue Dilantin 200 mg by mouth twice a day and lamotrigine 225 mg twice a day by mouth. I did order an MRI the brain does not show any acute stroke. An EEG has been ordered. It's possible that the increased seizure activity may be precipitated by the mastoid sinusitis and effusion. Consult his neurologist Dr. Irizarry. Mastoid sinusitis/effusion-- Stop azithromycin orally and Sudafed that was started as an outpatient. Place on ceftriaxone 1 g IV daily and Levofloxacin 500 mg IV daily. Of note, he has only had 1 dose of azithromycin Solu-Medrol 40 mg IV every 8 hours. Level of Care Telemetry Advanced Directives Existing Advance Directive: No Existing Living Will: No Existing Power of Stripper Cutter Machine: No Resuscitation Status FULL RESUSCITATION VTE Prophylaxis VTE Risk Assessment Done? Y/N: Yes Risk Level: Moderate
[2017-11-07] MEDS ORDERED: ONDANSETRON 8MG OD TAB PO PRN (01:30)
[2017-11-07] MEDS ORDERED: GADAVIST IV PRN (03:00)
[2017-11-07 03:25] VITALS: BP 143/93; PULSE 98; TEMP 36.9; O2SAT 93; Ht 179.1 cm; Wt 100.4 kg
[2017-11-07] MEDS ORDERED: NSS + 20MEQ KCL 1000ML 1,000 ML IV SCH (03:45)
[2017-11-07] MEDS ORDERED: LEVOFLOXACIN / D5W 500 MG in PREMIXED IN D5W 100 ML IV SCH (03:45)
[2017-11-07] MEDS ORDERED: METHYLPREDNISOLONE IV 40 MG in SYRINGE 0 ML IV SCH (04:00)
[2017-11-07] MEDS ORDERED: CEFTRIAXONE SOD INJ 1 GM in DEXTROSE 5% ADD-VANTAGE 50ML 50 ML IV SCH (04:00)
--- NOTE | 2017-11-07 06:44 | DIAGNOSTIC IMAGING REPORT ---
MRI OF THE BRAIN WITHOUT AND WITH IV CONTRAST CLINICAL HISTORY: increased seizure activity COMPARISON STUDY: 01/18/2015 TECHNIQUE: MRI of the brain was performed from the vertex to the skull base utilizing various T1 and T2 weighted sequences. Following the IV administration of 10.4 mL of Gadavist contrast, additional enhanced images were obtained. FINDINGS: Sagittal T1, axial diffusion, proton density and T2 weighted axial, coronal FLAIR, and pre and post axial T1-weighted images were acquired. These were supplemented with post gadolinium coronal T1 weighted images. No intra or extra-axial mass lesions are visualized. Axial diffusion-weighted images reveal no evidence of acute or subacute infarction. There is mild asymmetric ventricular dilatation, finding which is felt to be secondary to volume loss. Proton density T2-weighted and FLAIR images reveal extensive encephalomalacia involving portions the right temporal and occipital lobes. This appears be status post prior tumor resection. There are postcraniotomy changes on the right. There are no abnormal flow voids. There is no evidence of pathologic enhancement. Inflammatory changes are present within the right mastoid. IMPRESSION: 1. Postsurgical changes of a right temporoparietal craniotomy, with extensive posttreatment resection encephalomalacia 2. No evidence of recurrent neoplasm 3. No evidence of acute or subacute infarction 4. Persistent right mastoid effusion Electronically signed by: Daren Manrique M.D. 11/07/2017 6:42 AM Dictated Date/Time: 11/07/2017 6:37 AM
--- NOTE | 2017-11-07 07:24 | DIAGNOSTIC IMAGING REPORT ---
CT OF THE HEAD WITHOUT CONTRAST CLINICAL HISTORY: Seizure. COMPARISON STUDY: Head CT September 27, 2015. CT DOSE: 1228.53 mGy.cm TECHNIQUE: Helical axial images of the head were obtained without IV contrast. Automated exposure control was utilized for the study. A dose lowering technique was utilized adhering to the principles of ALARA. FINDINGS: No acute intracranial hemorrhage, midline shift or mass effect is present. The patient is status post right temporoparietal craniotomy. Encephalomalacia within the operative bed is unchanged. Appearance of the brain is unchanged on this exam. Ventricular system is stable. Basilar cisterns are patent. There are no extra-axial collections. There are no findings to suggest acute dural sinus thrombosis or acute territorial infarct. There is mild mucosal thickening of the sinuses. Right mastoid air cells are opacified. This is unchanged. IMPRESSION: 1. No acute intracranial findings. No change in appearance of the brain status post resection. 2. No change in a right mastoid effusion. Mild sinus mucosal thickening. Electronically signed by: Jd Gonzalez M.D. 11/07/2017 7:22 AM Dictated Date/Time: 11/07/2017 7:18 AM
[2017-11-07 07:45] VITALS: BP 136/85; PULSE 95; TEMP 36.8; O2SAT 93
[2017-11-07] MEDS ORDERED: ENOXAPARIN 40 MG/0.4 ML SYR SC SCH (08:00)
--- NOTE | 2017-11-07 08:36 | Neurology Consultation ---
Neurology Consultation Date of Consultation: Nov 07, 2017. Attending Physician: Victor Hugo aCrias M.D. Primary Care Physician: Kvng Allison M.D. Reason for Consultation: Increase in seizure activity History of Present Illness Source: patient, clinic records, hospital records The patient is a 61-year-old male with a history of right temporoparietal lobe glioblastoma resection in 2003. He has chronic residual left-sided weakness, visual and sensory neglect, and complex partial seizures. He follows regularly with Dr. Irizarry and is prescribed Lamictal and Dilantin. His Lamictal level tends to run low in spite of reported compliance with this medication. His seizures have been well controlled although he experienced a breakthrough seizure 2 years ago potentially due to some noncompliance with his Lamictal at that time. Currently, the patient has been admitted to the hospital after several recurrent seizures. The patient is moderately confused, however, and is a somewhat unreliable historian. According to the medical record he had 2 seizures at home, one seizure in route to the hospital, and a fourth seizure while in the emergency department. A description of these seizures is not available in the medical record currently. The patient reports that he typically experiences twitching of the left hand at the beginning of his seizures which subsequently involves to uncontrolled shaking of the limb. He also experiences an uncontrollable twisting of his head and neck to the left during these spells. He reports that he has been taking his Dilantin and Lamictal as prescribed although also indicates that he is been taking an antibiotic and an [id number] decongestant recently. He is afebrile and has a fairly unremarkable chest x-ray, CBC, and comprehensive metabolic panel. His CT of the head reveals changes consistent with his history of right temporoparietal craniotomy and tumor resection with residual encephalomalacia. No evidence of hemorrhage or acute process. A follow-up brain MRI has been completed as well. I reviewed the images as well as the radiologist's interpretation of this test. There is no evidence of tumor recurrence. There is extensive right temporal occipital encephalomalacia. No significant change compared with the previous MRI done in January 2015. The patient has been given an additional gram of intravenous phenytoin. He is been admitted for further evaluation and management of recurrent breakthrough seizures. An electroencephalogram has been completed this morning. I reviewed the tracing end appreciate fairly continuous right temporal slowing with occasional associated sharps. Dr. Ro's interpretation of the study is pending. Past Medical/Surgical History Medical Problems: (1) Closed left clavicular fracture Status: Acute (2) Deep vein thrombosis (DVT) of distal vein of left lower extremity Status: Acute (3) Dilantin toxicity Status: Acute (4) Dilantin toxicity Status: Acute (5) Elevated blood pressure reading Status: Acute (6) Fall due to slipping on ice or snow Status: Acute (7) Influenza Status: Acute (8) Laceration of left little finger with tendon involvement Status: Acute Family History Noncontributory Social History Smoking Status: Never smoker Drug Use: none Marital Status: Housing Status: lives with family Occupation Status: disabled Allergies Coded Allergies: No Known Allergies (Verified , `, 11/07/17) Current Inpatient Medications Current Inpatient Medications Medications (Trade) Dose Ordered Sig/[place] Route Start Time Stop Time Status Last Admin Dose Admin Enoxaparin Sodium (Lovenox Inj) 40 mg Q24H SC 11/07/17 08:00 12/07/17 07:59 Potassium Chloride/Sodium Chloride 1,000 ml @ 80 mls/hr [id number] IV 11/07/17 03:45 12/07/17 03:44 11/07/17 04:22 80 MLS/HR Acetaminophen (Tylenol Tab) 650 mg Q4H PRN PO 11/07/17 01:15 12/07/17 01:14 Lamotrigine (Lamictal Tab) 200 mg BID PO 11/07/17 09:00 12/07/17 08:59 Lorazepam (Ativan Tab) 0.5 mg BID PRN PO 11/07/17 01:15 12/07/17 01:14 Phenytoin Sodium (Dilantin Er Cap) 200 mg BID PO 11/07/17 09:00 12/07/17 08:59 Methylprednisolone Sodium Succinate 40 mg/Syringe 0.64 ml @ 1.5 mls/min Q8H IV 11/07/17 04:00 12/07/17 03:59 11/07/17 04:23 1.5 MLS/MIN Ceftriaxone Sodium 1 gm/ Dextrose 50 ml @ 100 mls/hr Q24H IV 11/07/17 04:00 11/17/17 03:59 11/07/17 04:23 100 MLS/HR Levofloxacin 500 mg/Prmx 100 ml @ 100 mls/hr Q24H IV 11/07/17 03:45 11/17/17 03:44 11/07/17 04:22 100 MLS/HR Guaifenesin (Mucinex Contr Rel Tab) 600 mg Q12 PO 11/07/17 09:00 12/07/17 08:59 Ondansetron HCl (Zofran Odt) 8 mg Q6H PRN PO 11/07/17 01:30 12/07/17 01:29 11/07/17 05:13 8 MG Lamotrigine (Lamictal Tab) 25 mg BID PO 11/07/17 09:00 12/07/17 08:59 Gadobutrol (Gadavist) 10.4 mmol UD PRN IV 11/07/17 03:00 11/11/17 02:59 Review of Systems Constitutional: No fever or chills Eyes: Chronic vision loss to the left ENT: No hearing loss or vertigo Cardiovascular: No chest pain or palpitations Respiratory: No coughing wheezing or shortness of breath Neurological: As per history of present illness Psychiatric: Stable anxiety Skin: No lesions or rashes A full 10 point review of systems was obtained from this patient with pertinent positives and negatives described in the history of present illness and otherwise listed above. All remaining systems were reviewed and are negative. Physical Exam Vital Signs (Past 24 Hrs): Date Time Temp Pulse Resp B/P (MAP) Pulse Ox O2 Delivery O2 Flow Rate FiO2 11/07/17 07:45 36.8 95 20 136/85 (102) 93 Room Air 11/07/17 03:25 36.9 98 18 143/93 93 Room Air 11/07/17 02:00 94 11/07/17 01:50 101 20 126/96 98 Nasal Cannula 4.0 11/07/17 00:37 102 20 142/95 98 Nasal Cannula 4.0 11/06/17 23:22 110 20 145/92 96 Nasal Cannula 4.0 11/06/17 22:06 37.4 125 18 138/99 90 Room Air 11/06/17 22:06 37.4 125 138/99 90 Room Air 11/06/17 22:06 90 Room Air 11/06/17 22:06 90 Room Air 11/06/17 22:05 120 The patient is a well-developed, well nourished, elderly male. He is lying comfortably in bed in no acute distress. He is alert and oriented to person and place. Not oriented to date. Recent and remote memory are intact although he has some difficulty recalling the specifics of his history of present illness. Attention normal. Concentration modestly impaired. Difficulty spelling world backwards and following multistep commands noted. Patient exhibits a normal spontaneous speech pattern. Patient exhibits a normal fund of knowledge and normal vocabulary. There is left visual field loss with confrontation testing. Pupils equal round reactive to light and accommodation. Eye movements normal although the right globe appears to be laterally deviated in primary gaze. Facial sensation intact. There is mild left facial weakness noted. Hearing intact. Palate elevates to midline. Shoulder shrug intact. Tongue protrudes to midline. Sensation intact to light touch, vibration, temperature, and proprioception in all 4 limbs. There is an element of left hemisensory neglect. Deep tendon reflexes are relatively increased for the left arm and leg, normoactive for the right arm and leg. Left plantar response upgoing. Right plantar response downgoing. There is moderate dysmetria with finger to nose on the left and mild dysmetria with heel to galdamez on the left. No dysmetria with finger to nose or heel to galdamez on the right. Ophthalmoscopic examination reveals normal-appearing optic disks and posterior segments. No papilledema or hemorrhages. Carotid pulses normal bilaterally, no bruits to auscultation. Gait and station not tested due to safety concerns, seizure precautions in place. Muscle strength testing reveals a mild left hemiparesis affecting the arm and leg. Strength for the right arm and leg normal. Muscle tone normal throughout. No atrophy. No abnormal movements observed. Laboratory Results Past 24 Hours: 11/06/17 22:26 Red Blood Count 4.42, Mean Corpuscular Volume 94.6, Mean Corpuscular Hemoglobin 34.4, Mean Corpuscular Hemoglobin Concent 36.4, Mean Platelet Volume 9.1, Neutrophils (%) (Auto) 79.5, Lymphocytes (%) (Auto) 10.1, Monocytes (%) (Auto) 9.2, Eosinophils (%) (Auto) 0.7, Basophils (%) (Auto) 0.2, Neutrophils # (Auto) 7.05, Lymphocytes # (Auto) 0.90, Monocytes # (Auto) 0.82, Eosinophils # (Auto) 0.06, Basophils # (Auto) 0.02 11/06/17 22:26 Test 11/06/17 22:26 11/06/17 22:53 11/07/17 04:17 White Blood Count 8.88 K/uL (4.8-10.8) Red Blood Count 4.42 M/uL (4.7-6.1) Hemoglobin 15.2 g/dL (14.0-18.0) Hematocrit 41.8 % (42-52) Mean Corpuscular Volume 94.6 fL (80-100) Mean Corpuscular Hemoglobin 34.4 pg (25-34) Mean Corpuscular Hemoglobin Concent 36.4 g/dl (32-36) Platelet Count 152 K/uL (130-400) Mean Platelet Volume 9.1 fL (7.4-10.4) Neutrophils (%) (Auto) 79.5 % Lymphocytes (%) (Auto) 10.1 % Monocytes (%) (Auto) 9.2 % Eosinophils (%) (Auto) 0.7 % Basophils (%) (Auto) 0.2 % Neutrophils # (Auto) 7.05 K/uL (1.4-6.5) Lymphocytes # (Auto) 0.90 K/uL (1.2-3.4) Monocytes # (Auto) 0.82 K/uL (0.11-0.59) Eosinophils # (Auto) 0.06 K/uL (0-0.5) Basophils # (Auto) 0.02 K/uL (0-0.2) RDW Standard Deviation 45.4 fL (36.4-46.3) RDW Coefficient of Variation 13.2 % (11.5-14.5) Immature Granulocyte % (Auto) 0.3 % Immature Granulocyte # (Auto) 0.03 K/uL (0.00-0.02) Erythrocyte Sedimentation Rate 12 mm/hr (0-14) Prothrombin Time 10.1 SECONDS (9.0-12.0) Prothromb Time International Ratio 1.0 (0.9-1.1) Activated Partial Thromboplast Time 26.9 SECONDS (21.0-31.0) Partial Thromboplastin Ratio 1.0 Anion Gap 12.0 mmol/L (3-11) Est Creatinine Clear Calc Drug Dose 86.3 ml/min Estimated GFR () 84.1 Estimated GFR (Non- 72.6 BUN/Creatinine Ratio 10.1 (10-20) Calcium Level 8.9 mg/dl (8.5-10.1) Phosphorus Level 2.3 mg/dl (2.5-4.9) Magnesium Level 1.8 mg/dl (1.8-2.4) Total Bilirubin 0.3 mg/dl (0.2-1) Direct Bilirubin < 0.1 mg/dl (0-0.2) Aspartate Amino Transf (AST/SGOT) 27 U/L (15-37) Alanine Aminotransferase (ALT/SGPT) 36 U/L (12-78) Alkaline Phosphatase 196 U/L (45-117) Total Protein 7.3 gm/dl (6.4-8.2) Albumin 3.7 gm/dl (3.4-5.0) Thyroid Stimulating Hormone (TSH) 4.100 uIu/ml (0.300-4.500) Phenytoin (Dilantin) Level 20.5 mcg/mL (10-20) Urine Color YELLOW Urine Appearance CLEAR (CLEAR) Urine pH 6.5 (4.5-7.5) Urine Specific [place] 1.012 (1.000-1.030) Urine Protein NEG (NEG) Urine Glucose (UA) NEG (NEG) Urine Ketones NEG (NEG) Urine Occult Blood NEG (NEG) Urine Nitrite NEG (NEG) Urine Bilirubin NEG (NEG) Urine Urobilinogen NEG (NEG) Urine Leukocyte Esterase NEG (NEG) Impression This is a 61-year-old male with a history of right hemispheric glioblastoma resection in 2003 with chronic residual mild left hemiparesis, visual field loss , sensory motor neglect, and complex partial seizures. His seizures are typically well controlled with Lamictal and Dilantin. He has had several recent breakthrough seizures occurring in the context of a sinus infection for which he has been taking azithromycin and an [id number] decongestant. It is possible that his antibiotic therapy may have interacted with his anticonvulsant regimen. On the other hand, decongestants may have lowered his seizure threshold. Furthermore, his Lamictal level tends to run low in spite of reported compliance with this medication. Plan Increase Lamictal to 250 mg twice daily. Continue Dilantin 200 mg twice daily. (Although his level is slightly elevated , he is not toxic on this medication.) Avoid decongestants. Outpatient follow-up with Dr. Irizarry for ongoing monitoring of his epilepsy.
[2017-11-07] MEDS ORDERED: GUAIFENESIN 600 MG TABCR PO SCH (09:00)
[2017-11-07] MEDS ORDERED: PHENYTOIN SODIUM ER 100 MG CAP PO SCH (09:00)
[2017-11-07] MEDS ORDERED: SALI1SPR15 NAE (10:55)
[2017-11-07] MEDS ORDERED: LMC25 PO (10:55)
[2017-11-07] MEDS ORDERED: CETI10TA10 PO (10:55)
--- NOTE | 2017-11-07 10:57 | Discharge Instructions ---
Discharge Instructions Date of Service Nov 07, 2017. Admission Reason for Admission: Increas.frequency Of Seizure Act., Seizure Disorde Discharge Discharge Diagnosis / Problem: seizure, perhaps influenced by pseudophed Discharge Goals Goal(s): Diagnostic testing Activity Recommendations Activity Limitations: as noted below Lifting Limitations: gradually increase as tolerated . Instructions / Follow-Up Instructions / Follow-Up Please avoid pseudophed in the future please use nasal saline spray or netti pot for congestion increase your lamictal to 250 mg twice a day from your 225 mg dosing per the neurologist please complete your azithromycin Current Hospital Diet Patient's current hospital diet: Regular Diet Discharge Diet Recommended Diet: Regular Diet Pending Studies Studies pending at discharge: no Medical Emergencies . Who to Call and When: Medical Emergencies: If at any time you feel your situation is an emergency, please call 911 immediately. . Non-Emergent Contact Non-Emergency issues call your: Primary Care Provider, Neurologist Call Non-Emergent contact if: temperature is above 101, your pain is unusual for you . . "Provider Documentation" section prepared by Victor Hugo Carias. . VTE Core Measure Inpt VTE Proph given/why not?: Treatment not indicated
[2017-11-07 11:55] VITALS: BP 114/68; PULSE 93; TEMP 36.9; O2SAT 93
--- NOTE | 2017-11-07 16:38 | EEG Procedure Note ---
EEG Procedure Note Date of Service Nov 07, 2017. Start / End Times Start Time: 5:56 AM End Time: 6:16 AM Referring Physician Miky Alatorre History This is a 61-year-old male with a history of right temporoparietal lobe glioblastoma resection in 2003, presenting with breakthrough seizures. EEG for further evaluation of seizures. Home Medication List Scheduled Azithromycin (Zithromax Z-Thong), Unknown Dose PO UD Lamotrigine (Lamictal), 200 MG PO BID Lamotrigine (Lamotrigine), 50 MG PO BID Phenytoin Sodium (Dilantin), 200 MG PO BID Saline (Saline Nasal [place] ), 1-2 SPRY CIARRA Q2H Scheduled PRN Acetaminophen (Tylenol), 500 MG PO UD PRN for Pain or Fever Cetirizine Hcl (Zyrtec), 1 TAB PO DAILY PRN for congestion Lorazepam (Lorazepam), 0.5 MG PO BID PRN for Anxiety Description This is a 21 electrode EEG with a single channel dedicated to limited EKG. The electrodes were placed in accordance with the International 10-20 system. intermittent C4, P3, and PZ electrode artifact noted that sometimes appeared sharp At the start of this recording the patient was in reported altered mental status. Background was poorly organized with often no well formed anterior to posterior gradient. Background was composed of predominantly 5-6 Hz theta frequencies with intermixed delta and alpha frequencies. Rarely there was a well formed symmetric posterior dominant rhythm of 10 Hz. There was near continuous right hemispheric slowing that was maximal in the temporal area. Hyperventilation was not done. Photic stimulation appears frequencies did not produce any abnormalities. Sleep was indicated by vertex waves and symmetric sleep spindles. Interpretation This is an abnormal routine EEG secondary to: 1) diffuse background disorganization and slowing 2) near continuous right temporal slowing. There was no electrographic seizures or epileptiform discharges. Clinical Correlation This EEG indicates: 1) mild to moderate encephalopathy of nonspecific etiology 2) structural or functional cerebral dysfunction in the right temporal area. Would be consistent with patient's known history of glioblastoma resection.
--- NOTE | 2017-11-07 16:57 | Discharge Summary ---
Discharge Summary Date of Service Nov 07, 2017. Discharge Summary Admission Date: Nov 07, 2017 at 01:34 Discharge Date: Nov 07, 2017 Discharge Disposition: Home Principal Diagnosis: seizure disorder, sinusitis Immunizations: Have You Had Influenza Vaccine: Yes History of Tetanus Vaccine?: Yes History of Pneumococcal: No History of Hepatitis B Vaccine: No Consultations: Dr Alford Medication Reconciliation New Medications: Cetirizine Hcl (Zyrtec) 10 Mg Tab 1 TAB PO DAILY PRN for congestion for 30 Days, #30 TAB 5 Refills Saline (Saline Nasal [place] Infant) 0.65 % Spr 1-2 SPRY CIARRA Q2H, #30 ML Changed Medications: Lamotrigine (Lamotrigine) 25 Mg Tab 50 MG PO BID, #120 DOSE (Changed from: 25 MG; TAKE A 25MG TABLET WITH A 200MG TABLET FOR A TOTAL DOSE OF 225MG TWICE A DAY) TAKE A two 25MG TABLET WITH A 200MG TABLET FOR A TOTAL DOSE OF 250MG TWICE A DAY Continued Medications: Acetaminophen (Tylenol) 500 Mg Tab 500 MG PO UD PRN for Pain or Fever, TAB TAKE PER PACKAGE DIRECTIONS Azithromycin (Zithromax Z-Thong) Unknown Strength Tab Unknown Dose PO UD for 5 Days, #6 TAB family states started on med 2 days ago presently taking 1 tablet daily and takes at 1700 Lamotrigine (Lamictal) 200 Mg Tab 200 MG PO BID, TAB TAKE A 200MG TABLET WITH two 25MG TABLET FOR A TOTAL DOSE OF 250MG TWICE A DAY Lorazepam (Lorazepam) 0.5 Mg Tab 0.5 MG PO BID PRN for Anxiety Phenytoin Sodium (Dilantin) 100 Mg Cap 200 MG PO BID Discontinued Medications: Pseudoephedrine Hcl (Sudafed Nasal Decongestan) 30 Mg Tab 30 MG PO DIRECTED for 10 Days, TAB Discharge Exam Review of Systems: Constitutional: No fever, No chills, No weakness ENT: + nasal symptoms Respiratory: + cough (from sinus drainage), No sputum, No shortness of breath Cardiovascular: No chest pain, No orthopnea, No edema Musculoskeletal: No joint pain, No muscle pain, No swelling Neurologic: + memory loss, No weakness Psychiatric: No depression symptoms, No anhedonism Physical Exam: General Appearance: WD/WN, no apparent distress Eyes: normal inspection, sclerae normal ENT: + pharyngeal erythema, + pertinent finding (no exudates) Neck: supple, no adenopathy, thyroid normal Respiratory/Chest: chest non-tender, lungs clear, normal breath sounds Cardiovascular: regular rate, rhythm, no murmur Abdomen / GI: normal bowel sounds, non tender, soft Extremities: no pedal edema, normal range of motion Neurologic/Psychiatric: alert, oriented x 3 Hospital Course 61-year-old male with a history of right hemispheric glioblastoma resection in 2003 with chronic residual mild left hemiparesis, visual field loss, sensory motor neglect, and complex partial seizures. His seizures are typically well controlled with Lamictal and Dilantin. He has had several recent breakthrough seizures occurring in the context of a sinus infection for which he has been taking azithromycin and pseudephed. He feels he has returned to baseline Per the Neurologist recommendation, Increase Lamictal to 250 mg twice daily and continue Dilantin 200 mg twice daily. (Although his level is slightly elevated , he is not toxic on this medication.) will follow up with Dr Irizarry as an outpt Avoid pseudophed and consider using zyrtec and nasal saline, there no reports that I have found listing Azithromycin as lowering seizure threshold or lowering med levels. . Total Time Spent: Greater than 30 minutes This includes examination of the patient, discharge planning, medication reconciliation, and communication with other providers. Discharge Instructions Please refer to the electronic Patient Visit Report (Discharge Instructions) for additional information.
== END 2017-11-07 13:00 | disposition home or self-care (01) | DRG 101 ==
LOC: EDBD 21:51 → C.EDC 21:52 → C.2T 11-07 01:34 → EDBEDREQ 11-07 01:39 → ENRESERV 11-07 01:40
PROVIDERS: ADMIT Hospitalist; ATTEND Internal Medicine
DX: G40.209 Localization-related (focal) (partial) symptomatic epilepsy and epileptic syndromes with complex partial seizures, not intractable, without status epilepticus (principal); G81.94 Hemiplegia, unspecified affecting left nondominant side; R41.4 Neurologic neglect syndrome; J32.8 Other chronic sinusitis; H54.7 Unspecified visual loss; Z85.841 Personal history of malignant neoplasm of brain; Z79.899 Other long term (current) drug therapy

== ENCOUNTER 2018-09-01 03:45 | Inpatient (IN) ==
[2018-09-01] MEDS ORDERED: ONDANSETRON INJ 2 MG/ML 2 ML VIAL IV STA ×3 (04:08→07:46)
[2018-09-01] MEDS ORDERED: SODIUM CHLORIDE 0.9% 1000ML 1,000 ML IV ONE (04:08)
[2018-09-01] MEDS ORDERED: fentaNYL citrate 100 MCG/2 ML VIAL IV STA (04:08)
--- NOTE | 2018-09-01 04:14 | Emergency Department Note ---
ED Provider Note Name: Balbir Jensen Age: 62 M Arrives Via: POV Informant: Patient and CC: headache HPI: 62 male arrives for evaluation of headache. Gradual onset frontal headache behind eyes starting around 6pm yesterday. No improvement with Tylenol. Regurlarly gets headaches but this is a bit more than usual. Denies photophobia , phonophobia, neck pain, fevers, rash, weakness, nausea, vomiting, nor other symptoms. He admits history of brain cancer, bacterial and viral meningitis and frequent headaches. No recent trauma, sick contacts. Nothing makes better nor worse. Denies other complaints. Admits he never drinks enough water and frequently gets dehydrated. He is not on any blood thinners. ROS: See above HPI for pertinent positives & negatives. A total of 10 systems reviewed and were otherwise negative. Past Medical History: Brain Cancer, Meningitis, Seizures, SBO, DVT Past Surgical History: Brain Surgery Family History: Denies family history of bleeding, meningitis Social History: Lives with , non-smoker, not homeless Home Medications: Tylenol, lamotrigine, ativan, phenytoin Allergies NKDA Physical: Vitals: 103/73, P 100, R 16, T 37.0, O2 95% RA Exam: GENERAL: Patient very uncomfortable appearing and in moderate. EYES: No scleral icterus, unremarkable pupils. ENT: Mucous membranes Dry, no nasal congestion. NECK: No masses appreciated, no meningismus, trachea is midline. Full ROM neck without nuchal ridgitiy RESPIRATORY: No dyspnea. Clear to auscultation and equal bilaterally. No wheeze , no rhonchi. CARDIOVASCULAR: Regular rate and rhythm. No murmurs, rubs, gallops appreciated. GASTROINTESTINAL: Abdomen soft, non-tender, no peritonitis. Bowel sounds positive. No masses appreciated. BACK: No midline tenderness, no CVA tenderness EXTREMITIES: Normal motion all extremities, no cyanosis, no edema. NEUROLOGIC: Alert and oriented, no acute motor or sensory deficits, no focal weakness, cranial nerves grossly intact. SKIN: No rash, no jaundice, no diaphoresis. ED Course: Prior Medical Record, Triage/Nursing Notes, Medications, Allergies reviewed by Me Vital Signs: reviewed and remarkable for wnl Labs: Reviewed and remarkable for normal WBC, BMP. CSF with elevated protein, low glucose, and elevated wbcs Interventions: Saline Lock, NSS bolus IV, Dilaudid 1mg IV x 2, Fentanyl 75mcg IV , Ativan 1mg IV, Zofran 4mg IV x 3, Rocephin 2g IV, Vancomycin 2g IV Imaging: [facility] Radiologist interpretation reviewed by me: "CT HEAD: Right frontoparietal temporal craniectomy with plating. Encephalomalacia in the right parietal, occipital, and temporal lobe. No hemorrhage, hydrocephalus, or mass effect. Ex vacuo dilatation of the right greater than left ventricles. Radiologist: Celina Guzman MD" EKG: none Consults: Dr Gomez accepts for admission Procedure: Lumbar Puncture Indication: Persistent headache with high risk meningitis. Verbal consent was obtained after the risks and benefits were explained, including but not limited to headache, bleeding/clotting, scarring, infection, pain, and bone/joint/nerve damage. At this time, the risks of the procedure are less than the risks of NOT performing the procedure. A time out was taken and the correct patient and site identified. The patient was placed in the left lateral lithotomy position and the back was prepped with betadine and draped in the standard fashion. The L3 intervertebral space was identified, anesthetized locally with 1% lidocaine without epinephrine, and the spinal needle was inserted through the skin with the bevel parallel to the dural fibers. 3 attemps without success in passing needle. Patient was moved to sitting, forward leaning position. Sterile area maintained and then further betadine used to recleanse area. The needle was carefully advanced into the lumbar cistern and 4 tubes of mildly cloudy CSF was obtained. The stylet was replaced and the needle was removed. A bandaid was placed and the patient was placed in the supine position. The patient tolerated the procedure well and there were no complications. Reassessments/Times: Multiple times reassessed with periodic need for further pain medications. No fever, no nuchal ridgidity though continued headache Blood pressure: Normal. No Referral necessary Disposition: Admitted to [facility] Hospitalist service. Differentials: Meningitis (bacterial vs viral), ICH, Dissection, Dehydration, Electrolyte abnormality amongst other pathologies. Medical Decision Makin yr old male with complext PMH and severel previous episodes of meningitis arrives with severe frontal headache. On exam and story really not much else to this episode other than gradual onset. He is quite uncomfortable and thus I gave multiple rounds pain medications. With his history and persistent headache felt LP warranted once CT head done (GCS 15) and was without hydrocephalus/mass. LP done with difficulty on left lateral position but once sitting forward easily able to get LP done. Fluid a bit cloudy and thus felt that this was meningitis. Precautions implemented at this time. Broad spectrum high dose abx started. Patient kept comfortable. Ativan given due to persistent nausea. CSF from lab with elevated wbc, low glucose, and high protein. Hospitalist consulted and will bring in for further management. Impression: Meningitis Eusebio Jacome MD Impression & Plan Meningitis Past Med/Surg History Social History Current Living Situation: Spouse Other Information That Helps Us Care for You: No Feels Safe at Home: Yes Safety Concerns: Feels Safe At This Time Smoking Status: Never smoker Hx Alcohol Use: No Hx Substance Use: No Beliefs That Will Affect Care: None Preferred Language: Togolese Communication Ability: Effective Results & Data Vital Signs Vital Signs - 24 hr 09/01/18 03:48 09/01/18 04:54 09/01/18 06:00 Temperature 37.0 C Temperature Source Oral Sepsis Recent Fever Within 48 Hours No Sepsis New/Unexplained Change in Mental Status No Sepsis Action Taken by Nursing No Action Required Pulse Rate 103 H Pulse Rate [Right Finger] 100 H 103 H Respiratory Rate 16 16 18 Respiratory Effort / Characteristics Non-Labored Spontaneous Respiratory Depth Normal Normal Respiratory Pattern Regular Blood Pressure 160/103 H Blood Pressure [Right Arm] 152/102 H 158/94 H Blood Pressure Mean 122 Blood Pressure Mean [Right Arm] 118 115 Blood Pressure Position [Right Arm] Sitting Pulse Oximetry 98 93 97 Oxygen Delivery Method Room Air Room Air Nasal Cannula Oxygen Flow Rate 3 09/01/18 07:02 09/01/18 07:27 Temperature Temperature Source Sepsis Recent Fever Within 48 Hours Sepsis New/Unexplained Change in Mental Status Sepsis Action Taken by Nursing Pulse Rate Pulse Rate [Right Finger] 100 H Respiratory Rate 16 Respiratory Effort / Characteristics Non-Labored Spontaneous Respiratory Depth Normal Normal Respiratory Pattern Regular Blood Pressure Blood Pressure [Right Arm] 103/73 Blood Pressure Mean Blood Pressure Mean [Right Arm] 83 Blood Pressure Position [Right Arm] Pulse Oximetry 95 Oxygen Delivery Method Nasal Cannula Room Air Oxygen Flow Rate Laboratory Data Result diagrams: 09/01/18 04:17 09/01/18 04:17 Lab Results 1209/01/18 09/01/18 Range/Units 04:17 04:17 04:17 WBC 7.53 (4.8-10.8) K/uL RBC 4.57 L (4.7-6.1) M/uL Hgb 15.2 (14.0-18.0) g/dL Hct 44.1 (42-52) % MCV 96.5 (80-100) fL MCH 33.3 (25-34) pg MCHC 34.5 (32-36) g/dL RDW Std Deviation 47.3 H (36.4-46.3) fL RDW Coeff of Paul 13.4 (11.5-14.5) % Plt Count 173 (130-400) K/uL MPV 9.3 (7.4-10.4) fL Immature Gran % (Auto) 0.3 % Neut % (Auto) 74.2 % Lymph % (Auto) 16.2 % [place] % (Auto) 8.1 % Eos % (Auto) 1.1 % Baso % (Auto) 0.1 % Immature Gran # (Auto) 0.02 (0.00-0.02) K/uL Neut # (Auto) 5.59 (1.4-6.5) K/uL Lymph # (Auto) 1.22 (1.2-3.4) K/uL [place] # (Auto) 0.61 H (0.11-0.59) K/uL Eos # (Auto) 0.08 (0-0.5) K/uL Baso # (Auto) 0.01 (0-0.2) K/uL PT 10.3 (9.0-12.0) Seconds INR 1.0 (0.9-1.1) Sodium 138 (136-145) mmol/L Potassium 4.2 (3.5-5.1) mmol/L Chloride 101 (98-107) mmol/L Carbon Dioxide 32 (21-32) mmol/L Anion Gap 5.0 (3-11) BUN 15 (7-18) mg/dl Creatinine 0.98 (0.6-1.4) mg/dl Est Cr Clr Drug Dosing 93.4 ml/min Est GFR ( Amer) 96.1 Est GFR (Non-Af Amer) 82.9 BUN/Creatinine Ratio 15.5 (10-20) Glucose 102 H (70-99) mg/dl Calcium 8.6 (8.5-10.1) mg/dl CSF Appearance CSF Color Xanthrochromic CSF WBC (0-5) /uL CSF RBC (0-) /uL CSF Cell Count Tube # CSF Mononuclear WBCs % % CSF Polynuclear WBCs % % CSF Chemistry Tube # CSF Glucose (40-70) mg/dl CSF Total Protein (15-45) mg/dl 09/01/18 09/01/18 Range/Units 06:00 06:00 WBC (4.8-10.8) K/uL RBC (4.7-6.1) M/uL Hgb (14.0-18.0) g/dL Hct (42-52) % MCV (80-100) fL MCH (25-34) pg MCHC (32-36) g/dL RDW Std Deviation (36.4-46.3) fL RDW Coeff of Paul (11.5-14.5) % Plt Count (130-400) K/uL MPV (7.4-10.4) fL Immature Gran % (Auto) % Neut % (Auto) % Lymph % (Auto) % [place] % (Auto) % Eos % (Auto) % Baso % (Auto) % Immature Gran # (Auto) (0.00-0.02) K/uL Neut # (Auto) (1.4-6.5) K/uL Lymph # (Auto) (1.2-3.4) K/uL [place] # (Auto) (0.11-0.59) K/uL Eos # (Auto) (0-0.5) K/uL Baso # (Auto) (0-0.2) K/uL PT (9.0-12.0) Seconds INR (0.9-1.1) Sodium (136-145) mmol/L Potassium (3.5-5.1) mmol/L Chloride (98-107) mmol/L Carbon Dioxide (21-32) mmol/L Anion Gap (3-11) BUN (7-18) mg/dl Creatinine (0.6-1.4) mg/dl Est Cr Clr Drug Dosing ml/min Est GFR ( Amer) Est GFR (Non-Af Amer) BUN/Creatinine Ratio (10-20) Glucose (70-99) mg/dl Calcium (8.5-10.1) mg/dl CSF Appearance Cloudy CSF Color Colorless Xanthrochromic No xanthochromia CSF WBC 1957 H* (0-5) /uL CSF RBC 0 (0-) /uL CSF Cell Count Tube # 4 CSF Mononuclear WBCs % 6.8 % CSF Polynuclear WBCs % 93.2 % CSF Chemistry Tube # 2 CSF Glucose 34 L (40-70) mg/dl CSF Total Protein 132.6 H (15-45) mg/dl Administered Medications Vancomycin HCl 2,000 mg/ (Sodium Chloride) 540 mls @ 200 mls/hr IV NOW ONE Stop: 09/01/18 08:45 Last Admin: 09/01/18 07:33 Dose: 200 mls/hr Discontinued Medications Fentanyl Citrate (Fentanyl Citrate) 75 mcg IV NOW STA Stop: 09/01/18 04:09 Last Admin: 09/01/18 04:27 Dose: 75 mcg Hydromorphone HCl (Dilaudid) 1 mg IV NOW STA Stop: 09/01/18 04:56 Last Admin: 09/01/18 04:58 Dose: 1 mg Sodium Chloride (Nss 1000ml) 1,000 mls @ 999 mls/hr IV .Q1H1M ONE Stop: 09/01/18 05:08 Last Infusion: 09/01/18 05:39 Dose: 0 mls/hr Admin: 09/01/18 04:28 Dose: 999 mls/hr Ceftriaxone Sodium 2,000 mg/ (Dextrose) 70 mls @ 100 mls/hr IV NOW STA; Protocol Stop: 09/01/18 06:45 Last Admin: 09/01/18 06:23 Dose: 100 mls/hr Lorazepam (Ativan) 1 mg in 2 mls @ 2 mls/min IV NOW STA Stop: 09/01/18 06:30 Last Admin: 09/01/18 06:34 Dose: 2 mls/min Lidocaine HCl (Xylocaine 1% (Local)) Confirm Administered Dose 20 ml .ROUTE .STK -MED ONE Stop: 09/01/18 05:14 Last Admin: 09/01/18 06:15 Dose: 20 ml Ondansetron HCl (Zofran) 4 mg IV NOW STA Stop: 09/01/18 04:09 Last Admin: 09/01/18 04:27 Dose: 4 mg Ondansetron HCl (Zofran) 4 mg IV NOW STA Stop: 09/01/18 06:05 Last Admin: 09/01/18 06:08 Dose: 4 mg Discharge Plan Visit Data Chief Complaint: Headache Stated Complaint: HEADACHE ED Provider: Eusebio Jacome Discharge Problem: Meningitis Forms Stand Alone Forms: [facility] [place] [place] [facility] Prescriptions Prescriptions: No Action lamotrigine 200 mg tablet 200 mg PO BID RF: 0 phenytoin sodium extended 100 mg capsule 200 mg PO BID RF: 0 acetaminophen 500 mg Tablet 100 mg PO Q6 PRN (Reason: Pain) RF: 0 lamotrigine 25 mg tablet 50 mg PO BID RF: 0 lorazepam 0.5 mg Tablet 1 mg PO DAILY PRN (Reason: Anxiety) RF: 0
[2018-09-01 04:34] LABS: Basophils # (auto) 0.01 K/uL (0-0.2); Basophils % (auto) 0.1 %; Eosinophils # (auto) 0.08 K/uL (0-0.5); Eosinophils % (auto) 1.1 %; Hematocrit (blood only) 44.1 % (42-52); Hemoglobin 15.2 g/dL (14.0-18.0); Immature Granulocytes # (auto) 0.02 K/uL (0.00-0.02); Immature Granulocytes % (auto) 0.3 %; Lymphocytes # (auto) 1.22 K/uL (1.2-3.4); Lymphocytes % (auto) 16.2 %; Mean Corpuscular Hgb Conc 34.5 g/dL (32-36); Mean Corpuscular Volume 96.5 fL (80-100); Mean Platelet Volume 9.3 fL (7.4-10.4); Monocytes # (auto) 0.61 K/uL (0.11-0.59); Monocytes % (auto) 8.1 %; Neutrophils # (auto) 5.59 K/uL (1.4-6.5); Neutrophils % (auto) 74.2 %; Platelet Count 173 K/uL (130-400); RDW Coefficient of Variation 13.4 % (11.5-14.5); RDW Standard Deviation 47.3 fL (36.4-46.3); Red Blood Count 4.57 M/uL (4.7-6.1); White Blood Count 7.53 K/uL (4.8-10.8)
[2018-09-01 04:43] LABS: Prothrombin Time 10.3 Seconds (9.0-12.0)
[2018-09-01] MEDS ORDERED: HYDROmorphone INJ 1 MG/ML SYRINGE IV STA ×2 (04:55→07:46)
[2018-09-01 04:57] LABS: BUN Creatinine Ratio 15.5 (10-20); Calcium 8.6 mg/dl (8.5-10.1); Creatinine Clr Calc Pharmacy 93.4 ml/min; Est GFR (African American) 96.1; Est GFR (Non-African American) 82.9; Potassium 4.2 mmol/L (3.5-5.1)
[2018-09-01] MEDS ORDERED: LIDOCAINE HCL 1% 20 ML VIAL ONE (05:13)
[2018-09-01] MEDS ORDERED: VANCOMYCIN HCL 2,000 MG in SODIUM CHLORIDE 0.9% 500 ML IV ONE (06:04)
[2018-09-01] MEDS ORDERED: VANCOMYCIN CONSULT ACTIVE PRN ×2 (06:04→10:01)
[2018-09-01] MEDS ORDERED: cefTRIAXone SODIUM 2,000 MG in DEXTROSE 5% 50 ML IV STA (06:04)
[2018-09-01] MEDS ORDERED: LORazepam 1 MG/2 ML VIAL IV STA (06:29)
[2018-09-01 06:33] LABS: Total Protein CSF 132.6 mg/dl (15-45)
--- NOTE | 2018-09-01 06:34 | CT Scan Report ---
CT head/brain wo con CLINICAL HISTORY: 62 years-old Male with headache, gradual onset. H/o brain tumor surg. Acute heada michael with history of prior brain tumor resection TECHNIQUE: Multiple axial CT images of the head were obtained without contrast. A dose lowering tech nique was utilized adhering to the principles of ALARA. CT DOSE: 614.27 mGy.cm COMPARISON: CT head 03/30/2018 03/26/2018 FINDINGS: Postoperative changes from prior right temporoparietal craniotomy with extensive encephalomalacia abo ut the right parietal, temporal and occipital lobes. Encephalomalacia appears to communicate with the dilated atria right lateral ventricle. Chronic dural thickening at the craniotomy site measures up t o 3 mm. These findings are unchanged. No midline shift, hydrocephalus , intracranial hemorrhage or in tracranial mass. Calcification of the central midbrain is unchanged. No territorial infarct identifie d. Complete opacification of the right mastoid air cells with fluid also noted within the right middle e ar cavity. Left mastoid air cells are clear. The paranasal sinuses are generally clear. Soft tissues and orbits are within normal limits. IMPRESSION: 1. No acute intracranial abnormality. 2. Postoperative changes from prior right temporoparietal craniotomy with stable postsurgical finding s. 3. Large right mastoid effusion with fluid also noted within the right middle ear cavity. The above report was generated using voice recognition software. It may contain grammatical, syntax o r spelling errors. Electronically signed by: José Luis Martinez M.D. 09/01/2018 6:33 AM
[2018-09-01 07:16] LABS: Appearance CSF Cloudy; CSF Xanthrochromic No xanthochromia; Color CSF Colorless; Red Blood Cell CSF (A) 0 /uL (0-)
[2018-09-01 07:21] LABS: Mononuclear WBC CSF 6.8 %; Polynuclear WBC CSF 93.2 %
[2018-09-01 07:22] LABS: White Blood Cell CSF (A) 1957 /uL (0-5)
--- NOTE | 2018-09-01 08:08 | History & Physical Report ---
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 felt to be from sinusitis and altered blood brain barrier, will presumptively have antibiotic to rocephin and vancomycin (2) Seizure: pt will conitnue on lamictal and phenytoin with a phenytoin level pending (3) Back pain: This is chronic and feels always is worse after LP, will use topical lidocaine, tylenol and opaites (4) DVT prophylaxis: will use scd and start lovenox on 09/02 due to LP on 09/01 History of Present Illness Primary Care Provider: Kvng Allison MD 62M with a PMHx of Glioblastoma Multiforme s/p resection in 2003 and 2006 w residual left sided deficits and seizure disorder, and three episode of bacterial meningitis most recently in 04/04 and culture grew Haemophillus. Was treated at that time with a week of iv ceftriaxone at home Patient had been without complaints up until 1 day prior to admission when he was complaining of some sinus drainage and pain he did developed some right- sided head pain and fullness developed decreasing alertness and lethargy with confusion was brought to the ER .09/01 LP in the ER is consistent with acute bacterial meningitis (elevated protein, cells, and low glucose) in the CSF. ER started Rocephin and vancomycin. Pt follows with Dr. Irizarry for his seizure disorder. There are currently no complaints of seizure activity. Allergies Allergy/AdvReac Type Severity Reaction Status Date / Time No Known Allergies Allergy ` Verified 09/01/18 04:20 Home Medications Home Medications Medication Instructions Recorded Confirmed Type acetaminophen 100 mg PO Q6 PRN 07/18/18 09/01/18 History lamotrigine 50 mg PO BID 07/18/18 09/01/18 History lamotrigine 200 mg PO BID 07/18/18 09/01/18 History lorazepam 1 mg PO DAILY PRN 07/18/18 09/01/18 History phenytoin sodium extended 200 mg PO BID 07/18/18 09/01/18 History Past Med/Surg History Social History Current Living Situation: Spouse Other Information That Helps Us Care for You: No Feels Safe at Home: Yes Safety Concerns: Feels Safe At This Time Smoking Status: Never smoker Hx Alcohol Use: No Hx Substance Use: No Beliefs That Will Affect Care: None Preferred Language: [place] Citizen Communication Ability: Effective Review of Systems Unobtainable due to cognitive status Physical Exam 2 Vital Signs (Past 24 Hours): Last Vital Signs Temp 37.0 C 09/01/18 03:48 Pulse 100 H 09/01/18 07:02 Resp 16 09/01/18 07:02 BP 103/73 09/01/18 07:02 Pulse Ox 95 09/01/18 07:02 The patient appeared lethargic but was able to be awoken and answer a few questions before falling back asleep easily Vital signs as documented. Head exam is unremarkable. No scleral icterus or corneal arcus noted Neck is without stiffness or firmness he also has no jugular venous distension, thyromegaly, or lymphademopathy Lungs are clear to auscultation and percussion decreased effort. Cardiac exam reveals Rhythm is regular. First and second heart sounds normal. No murmurs, rubs or gallops. Abdominal exam reveals normal bowel sounds, no masses, no organomegaly Extremities are nonedematous and both pedal pulses are normal. Neurologic exam is lethargic he mumbles he is in a hospital otherwise he cannot provide any other interviewing, no focal deficits, Skin is warm Dry without bruises or lesions
[2018-09-01] MEDS ORDERED: ACETAMINOPHEN 1000 MG/100 ML IV IV PRN (09:51)
[2018-09-01] MEDS ORDERED: MoRPHine SULFATE 2 MG/ML CARP IV PRN (09:51)
[2018-09-01] MEDS ORDERED: POLYETHYLENE (MIRALAX) 17 GM PACK PO PRN (09:51)
[2018-09-01] MEDS: lamoTRIgine 25 MG TAB PO SCH ×2 (11:14→20:27)
[2018-09-01] MEDS: LIDOCAINE 5% 1 PATCH TD SCH (11:14)
[2018-09-01] MEDS: PHENYTOIN SODIUM ER 100 MG CAP PO SCH ×2 (11:14→20:27)
[2018-09-01] MEDS: lamoTRIgine 100 MG TAB PO SCH ×2 (11:14→20:27)
[2018-09-01] MEDS: ONDANSETRON INJ 2 MG/ML 2 ML VIAL IV PRN ×2 (11:14→17:53)
[2018-09-01] MEDS: MoRPHine SULFATE 4 MG/ML 1 ML CARP\\VIAL IV PRN ×2 (13:39→17:49)
--- NOTE | 2018-09-01 14:16 | Pharmacy Report ---
Pharmacy Abx Initial Consult - Date of Service September 01, 2018 - Pharmacy Dosing Scope Date of Consult: 09/01/18 Consultation requested by: Dr. Carias Pharmacy is consulted to initiate Vancomycin IV dosing therapy, order appropriate labs and adjust drug dose/frequency. - Subjective The patient is a 62 year old M admitted on 09/01/18 08:14. - Objective Height: 5 ft 10 in Weight: 99.1 kg (BMI 31.3) Vital Signs (Past 12hrs): Vital Signs Temp Pulse Pulse Resp BP BP Pulse Ox 09/01/18 09:48 38.3 C H 112 H 22 153/89 H 09/01/18 09:27 96 09/01/18 09:01 105 H 14 09/01/18 09:00 105 H 14 104/69 09/01/18 08:50 104 H 15 09/01/18 08:40 102 H 14 09/01/18 08:30 107 H 19 09/01/18 08:20 100 H 18 09/01/18 08:10 103 H 19 09/01/18 08:01 107 H 18 09/01/18 08:00 102 H 18 110/73 09/01/18 07:50 109 H 21 09/01/18 07:40 129 H 28 H 09/01/18 07:30 96 H 16 96 09/01/18 07:20 100 H 18 96 09/01/18 07:10 99 H 16 95 09/01/18 07:02 100 H 16 103/73 95 09/01/18 07:00 102 H 16 103/73 98 09/01/18 06:51 105 H 17 97 09/01/18 06:50 104 H 18 109/72 94 09/01/18 06:41 111 H 17 95 09/01/18 06:40 110 H 15 121/85 92 09/01/18 06:31 128 H 16 96 09/01/18 06:30 142 H 19 175/102 H 96 09/01/18 06:21 104 H 14 98 09/01/18 06:20 105 H 16 162/96 H 97 09/01/18 06:11 102 H 15 97 09/01/18 06:10 103 H 17 158/94 H 99 09/01/18 06:01 113 H 22 99 09/01/18 06:00 113 H 103 H 16 150/101 H 158/94 H 97 09/01/18 05:51 18 97 09/01/18 05:50 22 129/83 97 09/01/18 05:48 27 H 140/88 97 09/01/18 05:40 97 H 15 98 09/01/18 05:30 97 H 15 99 09/01/18 05:20 100 H 14 95 09/01/18 05:10 95 H 13 97 09/01/18 05:00 100 H 16 90 09/01/18 04:54 100 H 16 152/102 H 93 09/01/18 04:52 99 H 14 152/102 H 84 L 09/01/18 04:50 100 H 17 167/108 H 93 09/01/18 04:49 88 L 09/01/18 04:30 96 H 18 96 09/01/18 04:20 92 H 14 09/01/18 04:10 95 H 14 97 09/01/18 04:03 94 H 11 L 96 09/01/18 03:48 37.0 C 103 H 16 160/103 H 98 Lab Results (24hrs): Laboratory Tests (24 Hours) 09/01/18 09/01/18 04:17 04:17 WBC 7.53 Neut # (Auto) 5.59 Creatinine 0.98 Est Cr Clr Drug Dosing 93.4 Micro Results: 09/01/18 06:00 Gram Stain - Final Cerebral Spinal Fluid CSF Culture - Pending - Assessment & Plan Assessment 62 year old M comes to ER for evaluation of gradual onset of frontal headache behind eyes starting approx 6pm yesterday. He regularly gets headaches but this is a bit more than usual. Hx of brain CA, bacterial & viral meningitis, and frequent headaches. Lumbar puncture performed, results pending. Plan Vancomycin for treatment of ? meningitis Vancomycin IV * Estimated PK Parameters: Vd 0.61 L/kg, Mario 0.082 hr-1, t1/2 8.5 hr * Loading dose: 2000 mg (~20 mg/kg) * Maintenance dose: 1500 mg IV (~15 mg/kg) every 10 hours * Goal trough level for meningitis : 15 to 20 mcg/mL * Trough level ordered for 09/02/18 Ceftriaxone IV * 2 gm IV q12h due to possible meningitis Pharmacy will continue to follow and will adjust dose/frequency as necessary. Thank you.
[2018-09-01] MEDS: VANCOMYCIN HCL 1,500 MG in SODIUM CHLORIDE 0.9% 500 ML IV SCH (16:16)
[2018-09-01] MEDS ORDERED: LORazepam 1 MG/2 ML VIAL IV PRN (17:00)
[2018-09-01] MEDS ORDERED: LORazepam 0.5 MG/1 ML VIAL IV PRN (17:00)
[2018-09-01] MEDS ORDERED: LORazepam 2 MG/4 ML VIAL ONE (17:02)
[2018-09-01] MEDS: LORazepam 1 MG/2 ML VIAL IV STA (17:07)
[2018-09-01] MEDS ORDERED: FOSPHENYTOIN IV ONE ×2 (17:30)
[2018-09-01] MEDS ORDERED: SODIUM CHLORIDE IV ONE ×2 (17:30)
[2018-09-01] MEDS ORDERED: cefTRIAXone SODIUM 2,000 MG in DEXTROSE 5% 50 ML IV SCH (18:00)
[2018-09-01] MEDS ORDERED: KETOROLAC 30 MG/ML VIAL ONE (18:05)
[2018-09-01] MEDS: KETOROLAC 30 MG/ML VIAL IV STA ×2 (18:08→18:14)
[2018-09-01] MEDS: AMPICILLIN 2,000 MG in SODIUM CHLOR 0.9% AD-VAN 100 ML IV SCH ×2 (18:37→21:49)
[2018-09-01] MEDS: ACYCLOVIR SOD 700 MG in DEXTROSE 5% 250 ML IV SCH (19:10)
[2018-09-01] MEDS: cefTRIAXone SODIUM 2,000 MG in DEXTROSE 5% 50 ML IV SCH (20:24)
[2018-09-02] MEDS: AMPICILLIN 2,000 MG in SODIUM CHLOR 0.9% AD-VAN 100 ML IV SCH ×6 (01:40→21:05)
[2018-09-02] MEDS: ACYCLOVIR SOD 700 MG in DEXTROSE 5% 250 ML IV SCH ×3 (02:18→19:26)
[2018-09-02] MEDS: VANCOMYCIN HCL 1,500 MG in SODIUM CHLORIDE 0.9% 500 ML IV SCH (02:23)
[2018-09-02] MEDS: HYDROmorphone INJ 1 MG/ML SYRINGE IV PRN ×4 (02:53→22:56)
[2018-09-02 06:45] LABS: Hematocrit (blood only) 41.4 % (42-52); Hemoglobin 14.1 g/dL (14.0-18.0); Mean Corpuscular Hgb Conc 34.1 g/dL (32-36); Mean Corpuscular Volume 97.6 fL (80-100); Mean Platelet Volume 9.2 fL (7.4-10.4); Platelet Count 154 K/uL (130-400); RDW Coefficient of Variation 13.2 % (11.5-14.5); Red Blood Count 4.24 M/uL (4.7-6.1); White Blood Count 11.75 K/uL (4.8-10.8)
[2018-09-02 07:17] LABS: BUN Creatinine Ratio 19.8 (10-20); Calcium 8.4 mg/dl (8.5-10.1); Creatinine Clr Calc Pharmacy 98.4 ml/min; Est GFR (African American) 102.3; Est GFR (Non-African American) 88.3; Potassium 4.2 mmol/L (3.5-5.1)
[2018-09-02] MEDS: lamoTRIgine 100 MG TAB PO SCH ×2 (07:18→20:22)
[2018-09-02] MEDS: lamoTRIgine 25 MG TAB PO SCH ×2 (07:18→20:22)
[2018-09-02] MEDS: PHENYTOIN SODIUM ER 100 MG CAP PO SCH ×2 (07:19→20:22)
[2018-09-02] MEDS: LORazepam 1 MG TAB PO PRN (07:19)
[2018-09-02] MEDS: ENOXAPARIN INJ 40 MG/0.4 ML SYR SQ SCH (07:19)
[2018-09-02] MEDS: cefTRIAXone SODIUM 2,000 MG in DEXTROSE 5% 50 ML IV SCH ×2 (07:19→20:21)
[2018-09-02] MEDS: LIDOCAINE 5% 1 PATCH TD SCH (07:19)
--- NOTE | 2018-09-02 07:24 | Infectious Disease Consult ---
Date of Consultation September 02, 2018 Assessment & Plan (1) Meningitis: maintain emperic abx for now, follow clinical response, await cultures. check blood cultures as well. History of Present Illness Attending Physician: Victor Hugo Carias MD pt admitted with sinus drainage and WEAVER. Has h/o GM s/p resection. 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 Came to ER and LP was done - 1956 wbc, 93% neutrophils. glucose low at 34 and protein elevated at 132. gram stain with wbc and no organisms. csf culture pending. wbc nml at 7.5. pt moaning on exam, answers some questions. + weaver. + fevers, tmax 38.3. Placed on vanco, rocephin, amp, acyclovir - toleraitng well. Ct head negative for acute changes, post surgical changes noted. Allergies Allergy/AdvReac Type Severity Reaction Status Date / Time No Known Allergies Allergy ` Verified 09/01/18 04:20 Home Medications Home Medications Medication Instructions Recorded Confirmed Type acetaminophen 100 mg PO Q6 PRN 07/18/18 09/01/18 History lamotrigine 50 mg PO BID 07/18/18 09/01/18 History lamotrigine 200 mg PO BID 07/18/18 09/01/18 History lorazepam 1 mg PO DAILY PRN 07/18/18 09/01/18 History phenytoin sodium extended 200 mg PO BID 07/18/18 09/01/18 History Patient History Medical History Hx of brain cancer (Chronic) Altered mental status Meningitis (Resolved) Seizure (Resolved) Partial small bowel obstruction (Resolved) DVT (deep venous thrombosis) Influenza A SBO (small bowel obstruction) (Resolved 04/24/14) Closed left clavicular fracture (Acute) Seizure (Resolved) Increasing frequency of seizure activity Seizure disorder (Acute) Surgical History Hx of brain surgery (Chronic) Social History Current Living Situation: Spouse Other Information That Helps Us Care for You: No Feels Safe at Home: Yes Safety Concerns: Feels Safe At This Time Smoking Status: Never smoker Hx Alcohol Use: No Hx Substance Use: No Beliefs That Will Affect Care: None Preferred Language: Georgian Communication Ability: Effective Review of Systems all remaining ros reviewed and are negative Physical Exam 2 Vital Signs (Past 24 Hours): Last Vital Signs Temp 37.2 C 09/02/18 06:34 Pulse 99 H 09/02/18 06:34 Resp 20 09/02/18 06:34 BP 143/80 H 09/02/18 06:34 Pulse Ox 90 09/02/18 06:34 Constitutional: well developed, + ill appearing and + lethargic ENMT: external ear and nose normal, oropharynx normal Neck: normal visual inspection moving neck, no rigidity Respiratory: normal respiratory effort, lungs clear to auscultation Cardiovascular: RRR, no murmur, no edema Gastrointestinal (Abdomen): normal bowel sounds, soft, nontender, no hepatosplenomegaly Musculoskeletal: no cyanosis or clubbing, extremities motor strength 5/5 Skin: no rashes, warm and dry Psychiatric: Orientation: alert and oriented x 3 mild - moderated discomfort, moaning Results & Data Laboratory Results Microbiology 09/01/18 06:00 Cerebral Spinal Fluid Gram Stain - Final
[2018-09-02] MEDS ORDERED: KETOROLAC 30 MG/ML VIAL IV ONE (09:58)
[2018-09-02] MEDS ORDERED: LORazepam 1 MG/2 ML VIAL IV ONE (10:30)
--- NOTE | 2018-09-02 12:51 | CT Scan Report ---
CT SCAN OF THE LUMBAR SPINE WITHOUT IV CONTRAST CLINICAL HISTORY: Back pain. COMPARISON STUDY: MRI of the lumbar spine dated 03/31/2018. Chest CT dated 09/21/2016. TECHNIQUE: CT scan of the lumbar spine is performed from the lower thoracic spine to the sacrum. Imag es are reviewed in the axial, sagittal, and coronal planes. IV contrast was not administered for this examination. A dose lowering technique was utilized adhering to the principles of ALARA. CT DOSE: 721.23 mGy.cm FINDINGS: The skeletal structures are osteopenic. There is no evidence of fracture or malalignment in volving the lumbar spine. A minimal anterior compression deformity of T12 is unchanged from prior ruslan dies. Vertebral body height is maintained throughout the lumbar spine. There are bilateral pars defec ts at L5 with 7 mm of anterolisthesis at L5-S1. Minimal retrolisthesis is noted at L4-L5. Alignment i s otherwise preserved. The transverse and spinous processes are intact. Anterior osteophytes are seen throughout. No lytic or blastic lesion is identified. There is advanced disc space narrowing at L1-L 2 with associated endplate sclerosis. Moderate to advanced disc space narrowing is seen at L3-L4, L4- L5, and L5-S1. There is also significant endplate sclerosis at L4-L5. There is no evidence of large d isc herniation or high-grade central canal stenosis by CT. Small posterior disc bulges are seen from L2-L3 through L5-S1. The visualized sacrum and bony pelvis appear intact. Sclerotic change is noted i n the sacroiliac joints. The paraspinous soft tissues are normal in appearance. There is atherosclero tic calcification of the abdominal aorta. A retroaortic left renal vein is incidentally noted. Parape lvic cysts are noted in the right kidney. IMPRESSION: 1. No acute bony abnormality is seen involving the lumbar spine. 2. Osteopenia and degenerative change as above. Dictated: 09/02/2018 11:17 AM Transcribed: 09/02/2018 12:51 PM Silvana [id number] Colin Electronically signed by: John De La Garza M.D. 09/02/2018 12:53 PM
--- NOTE | 2018-09-02 13:09 | Hospitalist Progress Note ---
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, will presumptively have antibiotic to rocephin ampicillin and acyclovir vancomycin was stopped as initially cultures are suggesting this to be a gram-negative infection (2) Seizure: pt will conitnue on lamictal and phenytoin patient had a seizure on 09/02 he was loaded with 500 mg of fosphenytoin his phenytoin level was 17 (3) Back pain: This is acute on chronic and feels always is worse after LP, very little help with topical lidocaine, tylenol and opaites we did pursue a CT scan of his lumbar spine without any evidence of bony abnormalities infection or bleeding seen in the area of his lumbar spine (4) DVT prophylaxis: will use scd and start lovenox on 09/02 due to LP on 09/01 Subjective Patient looks better to my eye however he still complaining of significant back pain. CT scan was undertaken of his lumbar spine without any significant pathology to correlate with the degree of pain he is having. We will tailor his antibiotics slightly downward far as meningitis as it was initially identified as possibly a gram-negative. Therefore we will stop his vancomycin but continue ampicillin and ceftriaxone and acyclovir at this point infectious disease is following Review of Systems ROS: Is uncomfortable and at times writhing in pain No double vision blurry vision he does complain of headache No problems with speech or swallowing No palpitations, chest pain or pressure No Wheezing or breathing issues No abdominal pain nausea vomiting diarrhea changes in appetite or weight No burning urine urine frequency or changes in color Is focal back pain and muscle pain No skin rashes or oral lesions No unusual bruising or bleeding Lumbar focused back pain but no new numbness or loss of strength No newchanges in memory or confusion Physical Exam 2 Vital Signs (Past 24 Hours): Last Vital Signs Temp 37.2 C 09/02/18 06:34 Pulse 99 H 09/02/18 06:34 Resp 20 09/02/18 06:34 BP 143/80 H 09/02/18 06:34 Pulse Ox 90 09/02/18 06:34 The patient appeared well nourished and normally developed he does have deformities to his head and some strabismus seen. Vital signs as documented. Head exam is unremarkable. No scleral icterus or corneal arcus noted Neck is without jugular venous distension, thyromegaly, or lymphademopathy Lungs are clear to auscultation and percussion. Cardiac exam reveals Rhythm is regular. First and second heart sounds normal. No murmurs, rubs or gallops. Abdominal exam reveals normal bowel sounds, no masses, no organomegaly Extremities are nonedematous and both pedal pulses are normal. Neurologic exam is A&Ox3, no focal deficits, strength is equal bilateral is point tenderness reproducible near the area of his spinal tap Skin is warm Dry without bruises or lesions
[2018-09-02] MEDS: ONDANSETRON INJ 2 MG/ML 2 ML VIAL IV PRN (15:38)
[2018-09-02] MEDS ORDERED: VANCOMYCIN TROUGH ONE ×2 (22:30→23:30)
[2018-09-03] MEDS: AMPICILLIN 2,000 MG in SODIUM CHLOR 0.9% AD-VAN 100 ML IV SCH ×3 (01:56→08:37)
[2018-09-03] MEDS: HYDROmorphone INJ 1 MG/ML SYRINGE IV PRN ×5 (02:27→22:49)
[2018-09-03] MEDS: ACYCLOVIR SOD 700 MG in DEXTROSE 5% 250 ML IV SCH ×3 (02:28→20:22)
[2018-09-03 07:09] LABS: Hematocrit (blood only) 39.6 % (42-52); Hemoglobin 13.7 g/dL (14.0-18.0); Mean Corpuscular Hgb Conc 34.6 g/dL (32-36); Mean Corpuscular Volume 95.9 fL (80-100); Mean Platelet Volume 9.4 fL (7.4-10.4); Platelet Count 134 K/uL (130-400); RDW Standard Deviation 45.3 fL (36.4-46.3); Red Blood Count 4.13 M/uL (4.7-6.1); White Blood Count 9.94 K/uL (4.8-10.8)
[2018-09-03 07:46] LABS: BUN Creatinine Ratio 12.3 (10-20); Calcium 8.5 mg/dl (8.5-10.1); Creatinine Clr Calc Pharmacy 97.4 ml/min; Est GFR (Non-African American) 87.2; Potassium 3.8 mmol/L (3.5-5.1)
--- NOTE | 2018-09-03 07:50 | Clinical Documentation Query ---
CLINICAL DOCUMENTATION QUERY Dr. WALLS, In your clinical opinion is this patient being managed for: ( ) Hemophilus meningitis ( x) Not Agree, see today's note ( ) Other explanation of clinical findings (No explanation is considered a No Response) ( ) Unable to determine ( ) Need to Discuss (Phone CDS or qliq) (No discussion is considered a No Response) The medical record reflects the following clinical findings, treatment, and risk factors. Clinical Indicators: 62 yo male presenting with severe frontal headache. Progress notes indicate pt with initial cultures suggesting gram negative infection. Final CSF culture with haemo. influ betalactamase neg bacteria. Treatment:ID consult, IV ampicillin, IV rocephin, IV acyclovir, isolation precautions Risk Factors: hx of haemophillus meningitis Please clarify and document your clinical opinion in the progress notes and discharge summary. Terms such as "probable", "suspected", "likely", "questionable", "possible", or "still to be ruled out" are acceptable. IF IN AGREEMENT, YOU MUST DOCUMENT ABOVE DIAGNOSTIC STATEMENT IN DAILY PROGRESS NOTES AND DISCHARGE SUMMARY. This document is not part of the patient' s record. Thank You, Mellisa Hercules, RN [phone] [facility]ITALDanay
[2018-09-03] MEDS: cefTRIAXone SODIUM 2,000 MG in DEXTROSE 5% 50 ML IV SCH ×2 (08:36→20:23)
[2018-09-03] MEDS: ACETAMINOPHEN 500 MG TAB PO PRN (08:36)
[2018-09-03] MEDS: HYDROmorphone INJ 0.5 MG/0.5 ML SYR IV PRN ×2 (08:37→16:51)
[2018-09-03] MEDS: lamoTRIgine 25 MG TAB PO SCH ×2 (08:38→20:24)
[2018-09-03] MEDS: PHENYTOIN SODIUM ER 100 MG CAP PO SCH ×2 (08:38→20:23)
[2018-09-03] MEDS: lamoTRIgine 100 MG TAB PO SCH ×2 (08:38→20:24)
[2018-09-03] MEDS: LIDOCAINE 5% 1 PATCH TD SCH (08:39)
[2018-09-03] MEDS: ENOXAPARIN INJ 40 MG/0.4 ML SYR SQ SCH (08:39)
--- NOTE | 2018-09-03 10:09 | Infectious Disease Progress Nt ---
Date of Service September 03, 2018 Assessment & Plan (1) Meningitis: will narrow to rocephin based on csf culture. would not use amp - I to this. will need min 14 days. consider blood patch for back pain, ? related to LP. Subjective pt undergoing new IV placement during my exam. much more awake today. no f/c. csf cultures growing beta lactamase negative H. influenza. remains on multiple abx. yesterday was having low back pain, ct done, negative. today states back pain is same. no f/c. no valle, no abd pain no n/v/d, eating well. thirsty. blood cultures penidng. all remaining ros reviewed and are negative. Physical Exam 2 Vital Signs (Past 24 Hours): Last Vital Signs Temp 36.8 C 09/02/18 22:48 Pulse 59 L 09/02/18 22:48 Resp 18 09/02/18 22:48 BP 124/83 09/02/18 22:48 Pulse Ox 96 09/02/18 22:48 Constitutional: well developed and + ill appearing ENMT: external ear and nose normal, oropharynx normal Neck: normal visual inspection; no nuchal rigidity Respiratory: normal respiratory effort, lungs clear to auscultation Cardiovascular: RRR, no murmur, no edema Gastrointestinal (Abdomen): normal bowel sounds, soft, nontender, no hepatosplenomegaly Musculoskeletal: no cyanosis or clubbing, extremities motor strength 5/5 Skin: no rashes, warm and dry Psychiatric: Orientation: alert and oriented x 3 Results & Data Laboratory Results Microbiology 09/01/18 06:00 Cerebral Spinal Fluid Gram Stain - Final 09/01/18 06:00 Cerebral Spinal Fluid CSF Culture - Final Haemo.influ betalactamase neg
[2018-09-03] MEDS ORDERED: HydrALAZINE HCL 20 MG/ML VIAL IV PRN (16:38)
[2018-09-03] MEDS: LORazepam 1 MG TAB PO PRN (17:21)
[2018-09-03] MEDS ORDERED: HYDROmorphone INJ 0.5 MG/0.5 ML SYR IV STA ×2 (17:35→19:12)
--- NOTE | 2018-09-03 17:50 | Hospitalist Progress Note ---
Date of Service September 03, 2018 Assessment & Plan (1) Meningitis: (2) Seizure: (3) Back pain: (4) DVT prophylaxis: 62M with a PMHx of Glioblastoma Multiforme s/p resection in 2003 and 2006 w residual left sided deficits and seizure disorder, hx of three episode of bacterial meningitis most recently in 04/04 and culture grew Haemophillus. Was treated at that time with a week of iv ceftriaxone at home, admitted 2 days ago on September 01, 2018 with meningitis again Likely bacterial meningitis, has been on Rocephin ampicillin and acyclovir vancomycin, which was narrowed down to Rocephin only per infectious disease, will continue current care, will need min 14 days per infectious disease Seizure: With history of seizure and Glioblastoma Multiforme s/p resection, had a seizure on 09/02 he was loaded with 500 mg of fosphenytoin , conitnue on lamictal and phenytoin Acute on chronic low back pain, seems getting worse today, did have a CT scan of his lumbar spine without any evidence of bony abnormalities infection or bleeding seen in the area of his lumbar spine, continue pain control, may consider blood patch for back pain, because the low back pain possible related to LP, however I believe patching after LP in meningitis condition possible is relative contraindicated, will talk to anesthesiologist, increase the dose of Dilaudid, continue pain control Accelerated hypertension, possible because of the pain, will treat with lisinopril, plus use hydralazine as needed DVT prophylaxis by Lovenox Subjective Complain about significant back pain, Associated with accelerated hypertension, Some confused, however awake alert and orientated, Review of system is limited because patient was in pain, No fever and chill, Physical Exam 2 Vital Signs (Past 24 Hours): Last Vital Signs Temp 36.9 C 09/03/18 16:25 Pulse 87 09/03/18 16:25 Resp 22 09/03/18 16:25 BP 147/104 H 09/03/18 16:25 Pulse Ox 94 09/03/18 16:25 Physical Exam: General Appearance: Anxious, and in pain, WD/WN, no apparent distress, Eyes: normal inspection, PERRL, EOMI, sclerae normal ENT: normal ENT inspection, hearing grossly normal, pharynx normal Neck: supple, no adenopathy, thyroid normal, no JVD, no carotid bruits, trachea midline Respiratory/Chest: chest non-tender, normal breath sounds, no accessory muscle use, breath sounds, rales, wheezing Cardiovascular: regular rate, rhythm, no JVD, no murmur Abdomen: normal bowel sounds, non tender, soft, no organomegaly, Extremities: normal range of motion, non-tender, normal inspection, no pedal edema, no calf tenderness, joint has no limited range of motion, capillary refill is normal, no cyanosis clubbing 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, no motor/sensory deficits, alert, normal mood/affect, oriented x 3 Skin: normal color, warm/dry, no rash Lymphatic: no adenopathy Results & Data Laboratory Results Laboratory Results - last 24 hr 09/03/18 09/03/18 07:00 07:00 WBC 9.94 RBC 4.13 L Hgb 13.7 L Hct 39.6 L MCV 95.9 MCH 33.2 MCHC 34.6 RDW Std Deviation 45.3 RDW Coeff of Paul 13.0 Plt Count 134 MPV 9.4 Sodium 135 L Potassium 3.8 Chloride 99 Carbon Dioxide 29 Anion Gap 7.0 BUN 12 Creatinine 0.94 Est Cr Clr Drug Dosing 97.4 Est GFR ( Amer) 101.0 Est GFR (Non-Af Amer) 87.2 BUN/Creatinine Ratio 12.3 Glucose 110 H Calcium 8.5 Microbiology 09/01/18 06:00 Cerebral Spinal Fluid Gram Stain - Final 09/01/18 06:00 Cerebral Spinal Fluid CSF Culture - Final Haemo.influ betalactamase neg
[2018-09-03] MEDS ORDERED: HYDROmorphone INJ 0.5 MG/0.5 ML SYR IV PRN (17:53)
[2018-09-03] MEDS: ONDANSETRON INJ 2 MG/ML 2 ML VIAL IV PRN (17:54)
--- NOTE | 2018-09-03 19:58 | XRay Report ---
AP PELVIS ONE VIEW, RIGHT HIP 1 VIEW HISTORY: right hip pain, hx of fall in 2 months ago COMPARISON: None. FINDINGS: There is no fracture or dislocation. Soft tissues are unremarkable. A Velasquez catheter is adriana ntified. IMPRESSION: No fracture or dislocation within the pelvis or hips. Electronically signed by: Tal Harris M.D. 09/03/2018 7:56 PM
[2018-09-03] MEDS: LISINOPRIL 10 MG TAB PO SCH (20:33)
[2018-09-04] MEDS: ACYCLOVIR SOD 700 MG in DEXTROSE 5% 250 ML IV SCH ×2 (02:59→10:31)
[2018-09-04] MEDS: HYDROmorphone INJ 1 MG/ML SYRINGE IV PRN ×3 (04:31→16:43)
[2018-09-04 06:39] LABS: Hematocrit (blood only) 37.4 % (42-52); Hemoglobin 13.1 g/dL (14.0-18.0); Mean Corpuscular Volume 94.2 fL (80-100); Mean Platelet Volume 9.6 fL (7.4-10.4); Platelet Count 134 K/uL (130-400); RDW Coefficient of Variation 12.7 % (11.5-14.5); RDW Standard Deviation 43.9 fL (36.4-46.3); Red Blood Count 3.97 M/uL (4.7-6.1); White Blood Count 7.76 K/uL (4.8-10.8)
[2018-09-04 07:14] LABS: Calcium 8.3 mg/dl (8.5-10.1); Creatinine Clr Calc Pharmacy 120.5 ml/min; Est GFR (African American) 114.1; Est GFR (Non-African American) 98.5; Potassium 3.6 mmol/L (3.5-5.1)
[2018-09-04] MEDS: cefTRIAXone SODIUM 2,000 MG in DEXTROSE 5% 50 ML IV SCH ×2 (07:59→20:29)
[2018-09-04] MEDS: LISINOPRIL 10 MG TAB PO SCH (08:02)
[2018-09-04] MEDS: lamoTRIgine 25 MG TAB PO SCH ×2 (08:02→20:31)
[2018-09-04] MEDS: LIDOCAINE 5% 1 PATCH TD SCH (08:03)
[2018-09-04] MEDS: lamoTRIgine 100 MG TAB PO SCH ×2 (08:03→20:31)
[2018-09-04] MEDS: PHENYTOIN SODIUM ER 100 MG CAP PO SCH ×2 (08:03→20:30)
[2018-09-04] MEDS: ENOXAPARIN INJ 40 MG/0.4 ML SYR SQ SCH (08:03)
--- NOTE | 2018-09-04 10:37 | Hospitalist Progress Note ---
Date of Service September 04, 2018 Assessment & Plan (1) Meningitis: (2) Seizure: (3) Back pain: (4) DVT prophylaxis: 62M with a PMHx of Glioblastoma Multiforme s/p resection in 2003 and 2006 w residual left sided deficits and seizure disorder, hx of three episode of bacterial meningitis most recently in 04/04 and culture grew Haemophillus. Was treated at that time with a week of iv ceftriaxone at home, admitted 2 days ago on September 01, 2018 with meningitis again Likely bacterial meningitis, was on Rocephin ampicillin and acyclovir vancomycin , which was narrowed down to Rocephin only per infectious disease, will continue current care, will need at least 14 days per infectious disease, will consider PICC line tomorrow Seizure: With history of seizure and Glioblastoma Multiforme s/p resection, had a seizure on 09/02 he was loaded with 500 mg of fosphenytoin , conitnue on lamictal and phenytoin , no more seizure episodes Acute on chronic low back pain, seems getting much better today, did have a CT scan of his lumbar spine without any evidence of bony abnormalities infection or bleeding seen in the area of his lumbar spine, Right hip pain resolved Accelerated hypertension, resolved, possible because of the pain, continue lisinopril, plus use hydralazine as needed DVT prophylaxis by Tracy GARZA, NABIL mckeon 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 for 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 Subjective Symptoms of back pain and hip pain is better, did not required as frequent pain medicine as yesterday Complained about anxious, blood pressure is better, Some confused, awake alert and orientated, generally is better than yesterday, Review of system is limited because patient was in pain, No fever and chill, poor oral intake, Physical Exam 2 Vital Signs (Past 24 Hours): Last Vital Signs Temp 37.3 C 09/04/18 07:17 Pulse 80 09/04/18 07:17 Resp 18 09/04/18 07:17 BP 116/75 09/04/18 07:17 Pulse Ox 93 09/04/18 07:17 Physical Exam: General Appearance: less anxious, and no more in pain, More conversational, WD/WN, no apparent distress, Eyes: normal inspection, PERRL, EOMI, sclerae normal ENT: normal ENT inspection, hearing grossly normal, pharynx normal Neck: supple, no adenopathy, thyroid normal, no JVD, no carotid bruits, trachea midline Respiratory/Chest: chest non-tender, normal breath sounds, no accessory muscle use, breath sounds, rales, wheezing Cardiovascular: regular rate, rhythm, no JVD, no murmur Abdomen: normal bowel sounds, non tender, soft, no organomegaly, Extremities: normal range of motion, non-tender, normal inspection, no pedal edema, no calf tenderness, no more hip pain, joint has no limited range of motion, capillary refill is normal, no cyanosis clubbing 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, no motor/sensory deficits, alert, normal mood/affect, oriented x 3 Skin: normal color, warm/dry, no rash Lymphatic: no adenopathy Results & Data Laboratory Results Laboratory Results - last 24 hr 09/04/18 09/04/18 06:25 06:25 WBC 7.76 RBC 3.97 L Hgb 13.1 L Hct 37.4 L MCV 94.2 MCH 33.0 MCHC 35.0 RDW Std Deviation 43.9 RDW Coeff of Paul 12.7 Plt Count 134 MPV 9.6 Sodium 133 L Potassium 3.6 Chloride 96 L Carbon Dioxide 29 Anion Gap 8.0 BUN 11 Creatinine 0.76 Est Cr Clr Drug Dosing 120.5 Est GFR ( Amer) 114.1 Est GFR (Non-Af Amer) 98.5 BUN/Creatinine Ratio 15.0 Glucose 117 H Calcium 8.3 L Phosphorus 3.0 Magnesium 2.0 Microbiology 09/02/18 08:02 Blood Blood Culture - Preliminary No growth to date. 09/02/18 07:54 Blood Blood Culture - Preliminary No growth to date. Diagnostic Findings Right hip x-ray yesterday, per report: No fracture or dislocation within the pelvis or hips.
--- NOTE | 2018-09-04 13:51 | Infectious Disease Progress Nt ---
Date of Service September 04, 2018 Assessment & Plan (1) Meningitis: continue rocephin based on csf culture.will need min 14 days.blood cultures remain negative. Subjective pt remains on rocephin, blood cultures negative. acyclovir stopped. low grade fever, tmax 37.8 overnight, isolated, currently afebrile. toleraitng abx. pelvis x ray negative. wbc nml. Physical Exam 2 Vital Signs (Past 24 Hours): Last Vital Signs Temp 37.3 C 09/04/18 07:17 Pulse 80 09/04/18 07:17 Resp 18 09/04/18 07:17 BP 116/75 09/04/18 07:17 Pulse Ox 93 09/04/18 07:17 Results & Data Laboratory Results Microbiology 09/02/18 08:02 Blood Blood Culture - Preliminary No growth to date. 09/02/18 07:54 Blood Blood Culture - Preliminary No growth to date. 09/01/18 06:00 Cerebral Spinal Fluid Gram Stain - Final 09/01/18 06:00 Cerebral Spinal Fluid CSF Culture - Final Haemo.influ betalactamase neg
[2018-09-05] MEDS: ACETAMINOPHEN 500 MG TAB PO PRN (00:56)
[2018-09-05 07:04] LABS: Hematocrit (blood only) 39.5 % (42-52); Hemoglobin 14.4 g/dL (14.0-18.0); Mean Corpuscular Hgb Conc 36.5 g/dL (32-36); Mean Corpuscular Volume 92.5 fL (80-100); Mean Platelet Volume 8.9 fL (7.4-10.4); Platelet Count 155 K/uL (130-400); RDW Coefficient of Variation 12.7 % (11.5-14.5); RDW Standard Deviation 42.4 fL (36.4-46.3); Red Blood Count 4.27 M/uL (4.7-6.1)
[2018-09-05 07:38] LABS: BUN Creatinine Ratio 15.7 (10-20); Calcium 8.8 mg/dl (8.5-10.1); Creatinine Clr Calc Pharmacy 118.9 ml/min; Est GFR (African American) 113.5; Est GFR (Non-African American) 97.9; Potassium 3.8 mmol/L (3.5-5.1)
[2018-09-05] MEDS: LISINOPRIL 10 MG TAB PO SCH (08:03)
[2018-09-05] MEDS: PHENYTOIN SODIUM ER 100 MG CAP PO SCH ×2 (08:03→20:25)
[2018-09-05] MEDS: ENOXAPARIN INJ 40 MG/0.4 ML SYR SQ SCH (08:03)
[2018-09-05] MEDS: cefTRIAXone SODIUM 2,000 MG in DEXTROSE 5% 50 ML IV SCH ×2 (08:03→20:26)
[2018-09-05] MEDS: LIDOCAINE 5% 1 PATCH TD SCH ×2 (08:03→19:06)
[2018-09-05] MEDS: lamoTRIgine 25 MG TAB PO SCH ×2 (08:03→20:25)
[2018-09-05] MEDS: lamoTRIgine 100 MG TAB PO SCH ×2 (08:03→20:25)
[2018-09-05] MEDS: HYDROmorphone INJ 1 MG/ML SYRINGE IV PRN (11:45)
[2018-09-05] MEDS ORDERED: TAMSULOSIN HCL 0.4 MG CAP PO ONE (12:55)
--- NOTE | 2018-09-05 13:12 | Hospitalist Progress Note ---
Date of Service September 05, 2018 Assessment & Plan (1) Meningitis: (2) Seizure: (3) Back pain: (4) DVT prophylaxis: 62M with a PMHx of Glioblastoma Multiforme s/p resection in 2003 and 2006 w residual left sided deficits and seizure disorder, hx of three episode of bacterial meningitis most recently in 04/04 and culture grew Haemophillus. 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, was on Rocephin ampicillin and acyclovir vancomycin, which was narrowed down to Rocephin only per infectious disease, will need at least 14 days per infectious disease, Was present of registered nurse, over the phone, discussed with patient's Yusra about patient conditions, risks and benefits of PICC line, she gave consent to performed, registered nurse signed the consent form, Patient possible need prison IV infusion Seizure: With history of seizure and Glioblastoma Multiforme s/p resection, had a seizure on 09/02 he was loaded with 500 mg of fosphenytoin , no more seizure episodes, conitnue on lamictal and phenytoin Urinary retention, Velasquez catheter reinserted, I am checking PSA, and start Flomax, Acute on chronic low back pain, Continue getting better did have a CT scan of his lumbar spine without any evidence of bony abnormalities infection or bleeding seen in the area of his lumbar spine, Right hip pain resolved Accelerated hypertension, resolved, possible because of the pain, continue lisinopril, plus use hydralazine as needed DVT prophylaxis by Tracy 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 discussed for 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, Possible need prison, (5) Urinary retention: Subjective Symptoms of back pain Is better no more hip pain Was trying to remove Velasquez catheter however had urinary retention more than 600 yesterday, Velasquez catheter reinserted Complained about anxious, blood pressure is better, Some confused, awake alert and orientated, generally is Continue to be better than yesterday, Review of system is limited No fever and chill, Review of Systems Constitutional: Positiveweakness, or fatigue Respiratory: no cough, sputum, wheezing, or dyspnea on exertion Cardiac: No chest pain, No orthopnea, Abdomen: No pain, No nausea, No vomiting, Musculoskeletal: No joint pain, No muscle pain, No swelling, No calf pain, No problem reported : See HPI, No urinary frequency, No incontinence, No hematuria Neurologic: No paralysis, No weakness, No numbness/tingling, No vertigo, No balance problems Psychiatric: No depression symptoms, No anhedonism, No anxiety, No insomnia, No substance abuse Heme: No abnormal bleeding/bruising, No clotting problems, No swollen lymph nodes, No night sweats Skin: No rash, No itch, No new/changing skin lesions, No color change, No bleeding Physical Exam 2 Vital Signs (Past 24 Hours): Last Vital Signs Temp 36.5 C 09/05/18 07:15 Pulse 96 H 09/05/18 07:15 Resp 18 09/05/18 07:15 BP 140/98 09/05/18 07:15 Pulse Ox 94 09/05/18 07:15 Physical Exam: General Appearance: no anxious, and no more in pain, Pleasant conversational, may mild hallucination, He saw his was behind him , More conversational, WD/WN, no apparent distress, Eyes: normal inspection, PERRL, EOMI, sclerae normal ENT: normal ENT inspection, hearing grossly normal, pharynx normal Neck: supple, no adenopathy, thyroid normal, no JVD, no carotid bruits, trachea midline Respiratory/Chest: chest non-tender, normal breath sounds, no accessory muscle use, breath sounds, rales, wheezing Cardiovascular: regular rate, rhythm, no JVD, no murmur Abdomen: normal bowel sounds, non tender, soft, no organomegaly, Velsaquez catheter in place, Extremities: normal range of motion, non-tender, normal inspection, no pedal edema, no calf tenderness, no more hip pain, joint has no limited range of motion, capillary refill is normal, no cyanosis clubbing 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 as tested, Left side weaker than right side because history of CVA,, alert, normal mood/affect, oriented x 3 Skin: normal color, warm/dry, no rash Lymphatic: no adenopathy Results & Data Laboratory Results Laboratory Results - last 24 hr 09/05/18 09/05/18 06:47 06:47 WBC 8.70 RBC 4.27 L Hgb 14.4 Hct 39.5 L MCV 92.5 MCH 33.7 MCHC 36.5 H RDW Std Deviation 42.4 RDW Coeff of Paul 12.7 Plt Count 155 MPV 8.9 Sodium 133 L Potassium 3.8 Chloride 97 L Carbon Dioxide 28 Anion Gap 8.0 BUN 12 Creatinine 0.77 Est Cr Clr Drug Dosing 118.9 Est GFR ( Amer) 113.5 Est GFR (Non-Af Amer) 97.9 BUN/Creatinine Ratio 15.7 Glucose 100 H Calcium 8.8
[2018-09-05] MEDS ORDERED: TAMSULOSIN HCL 0.4 MG CAP PO SCH (21:00)
[2018-09-06] MEDS: lamoTRIgine 100 MG TAB PO SCH (08:07)
[2018-09-06] MEDS: PHENYTOIN SODIUM ER 100 MG CAP PO SCH (08:07)
[2018-09-06] MEDS: LISINOPRIL 10 MG TAB PO SCH (08:07)
[2018-09-06] MEDS: lamoTRIgine 25 MG TAB PO SCH (08:07)
[2018-09-06] MEDS: LIDOCAINE 5% 1 PATCH TD SCH (08:08)
[2018-09-06] MEDS: ENOXAPARIN INJ 40 MG/0.4 ML SYR SQ SCH (08:08)
[2018-09-06] MEDS: cefTRIAXone SODIUM 2,000 MG in DEXTROSE 5% 50 ML IV SCH (08:15)
--- NOTE | 2018-09-06 12:29 | Discharge Summary ---
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 Was treated at that time with a week of iv ceftriaxone at home Patient had been without complaints up until 1 day prior to admission when he was complaining of some sinus drainage and pain he did developed some right- sided head pain and fullness developed decreasing alertness and lethargy with confusion was brought to the ER .09/01 LP in the ER is consistent with acute bacterial meningitis (elevated protein, cells, and low glucose) in the CSF. ER started Rocephin and vancomycin. Pt follows with Dr. Irizarry for his seizure disorder. There are currently no complaints of seizure activity. Principal Diagnosis no Discharge Data Allergies Allergy/AdvReac Type Severity Reaction Status Date / Time No Known Allergies Allergy ` Verified 09/01/18 04:20 Consultations 09/01/18 07:10 ED Decision to Admit Stat 09/01/18 09:51 Consult Case Management - Discharge Planning Routine Consult Infectious Diseases Routine Ordered Studies 09/01/18 04:08 CT head/brain wo con Urgent 09/02/18 09:58 CT lumbar spine wo con Stat Hospital Course (1) Meningitis: (2) Seizure: (3) Back pain: (4) DVT prophylaxis: 62M with a PMHx of Glioblastoma Multiforme s/p resection in 2003 and 2006 w residual left sided deficits and seizure disorder, hx of three episode of bacterial meningitis most recently in 04/04 and culture grew Haemophillus. 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, was on Rocephin ampicillin and acyclovir vancomycin, which was narrowed down to Rocephin only per infectious disease, need at least 14 days per infectious disease, On September 05, 2018, with present of registered nurse, over the phone, discussed with patient's Yusra about patient conditions, risks and benefits of PICC line, she gave consent to performed, registered nurse signed the consent form, Patient possible need senior care IV infusion Upon discharge today patient continued doing well, awake alert orientated, no confusion, however still on Velasquez catheter, report eating drinking fair, no fever and chills no complaint, denies lower back pain, Seizure: With history of seizure and Glioblastoma Multiforme s/p resection, had a seizure on 09/02 he was loaded with 500 mg of fosphenytoin , no more seizure episodes, conitnue on lamictal and phenytoin Urinary retention, has been on Velasquez catheter after admission, which was removed 2 days ago, yesterday Velasquez catheter reinserted because of urinary retention with bladder scan > 600 ml , I was checking PSA, which was normal, and started Flomax, Acute on chronic low back pain, Continue getting better, no pain today did have a CT scan of his lumbar spine without any evidence of bony abnormalities infection or bleeding seen in the area of his lumbar spine, Right hip pain resolved Accelerated hypertension, resolved, possible because of the pain, continue lisinopril, plus use hydralazine as needed, currently adding Flomax may have been for now hypertension DVT prophylaxis by Lovenox PT/OT Subjective upon discharge: Upon discharge today patient continued doing well, awake alert orientated, no confusion, however still on Velasquez catheter, report eating drinking fair, no fever and chills no complaint, denies lower back pain, Review of Systems Constitutional: Positive weakness, or fatigue, but looks much much better than yesterday, Respiratory: no cough, sputum, wheezing, or dyspnea on exertion Cardiac: No chest pain, No orthopnea, Abdomen: No pain, No nausea, No vomiting, Musculoskeletal: No joint pain, No muscle pain, No swelling, No calf pain, No problem reported : See HPI, Velasquez catheter in place, no urinary frequency, No incontinence, No hematuria Neurologic: No paralysis, No weakness, No numbness/tingling, No vertigo, No balance problems Psychiatric: No depression symptoms, No anhedonism, No anxiety, No insomnia, Heme: No abnormal bleeding/bruising, No clotting problems, No swollen lymph nodes, No night sweats Skin: No rash, No itch, No new/changing skin lesions, No color change, No bleeding Objective upon discharge, vital signs reviewed and stable, afebrile General Appearance: no anxious, and no more in pain, Pleasant conversational, no hallucination, More conversational, WD/WN, no apparent distress, Eyes: normal inspection, PERRL, EOMI, sclerae normal ENT: normal ENT inspection, hearing grossly normal, pharynx normal Neck: supple, no adenopathy, thyroid normal, no JVD, no carotid bruits, trachea midline Respiratory/Chest: chest non-tender, normal breath sounds, no accessory muscle use, breath sounds, rales, wheezing Cardiovascular: regular rate, rhythm, no JVD, no murmur Abdomen: Velasquez in place, normal bowel sounds, non tender, soft, no organomegaly , Velasquez catheter in place, Extremities: normal range of motion, non-tender, normal inspection, no pedal edema, no calf tenderness, no more hip pain, joint has no limited range of motion, capillary refill is normal, no cyanosis clubbing Neurologic/Psychiatric: sexton helper II-XII nml as tested, Left side weaker than right side because history of brain surgery glioblastoma,,, alert, normal mood/affect , oriented x 3 Skin: normal color, warm/dry, no rash Lymphatic: no adenopathy Lab data upon discharge: Laboratory Results - last 24 hr 09/05/18 06:47 Prostate Specific Ag 0.459 (5) Urinary retention: Total Time Total Time Spent Total Time Spent (In Minutes): 35 Discharge Plan Discharge Items Patient Disposition: Transfer Inpatient Rehab Fac Reason For Visit: MENINGITIS Discharge Diagnosis: histroy of Glioblastoma Multiforme s Haemophillus meningitis, Urinary retention Condition: Fair Discharge Goals: Decrease discomfort, Diagnostic testing, Improve disease control and Increase independence Activity: Resume your previous activity Non-emergency contact: Primary Care Provider Call non-emergency contact if: you have any medication questions, your symptoms worsen and your temperature is above 100.5 Diet: Regular Addtl Provider Instructions: you have histroy of Glioblastoma Multiforme s/p resection in 2003 and 2006 w residual left sided deficits and seizure disorder, you have Haemophillus meningitis, , need to continue iv Rocephin 2gm bid for 14 days You need to follow-up with infectious disease Dr. Flores in 1 week You have PICC line, need to continue benign care, You have urinary retention, Velasquez catheter reinserted, will continue Velasquez catheter for now, has started Flomax for possible BPH, may try to remove Velasquez catheter in 3-5 days, urology consultation if needed. you have Acute on chronic low back pain, you need to follow up with your primary care physician in 1 week, - take medication as instructed, never overdose or any misuse, or take with alcohol, because misuse of medicine may cause organ damage or , call me , or your primary care physician if have questions of discharge medicaitons. - call your primary care physician, or go to local emergency room if has any fever/chill, chest pain, shortness of breathing, nausea/vomiting/abdominal pain , facial droop/slurry speech/local weakness, or if has any questions. - fall precaution - diet as instructed - you need to follow up with your subspecialist, such as Dr. Flores Prescriptions: New tamsulosin 0.4 mg Capsule 0.4 mg PO HS 30 Days Qty: 30 RF: 0 lisinopril [Zestril] 10 mg Tablet 10 mg PO QAM 30 Days Qty: 30 RF: 0 ceftriaxone 2 gram recon soln 2 gm IV BID 14 Days Qty: 28 RF: 0 Continue lamotrigine 200 mg tablet 200 mg PO BID RF: 0 phenytoin sodium extended 100 mg capsule 200 mg PO BID RF: 0 acetaminophen 500 mg Tablet 100 mg PO Q6 PRN (Reason: Pain) RF: 0 lamotrigine 25 mg tablet 50 mg PO BID RF: 0 lorazepam 0.5 mg Tablet 1 mg PO DAILY PRN (Reason: Anxiety) RF: 0 Stand-Alone Forms: [facility] Discharge Orders: Discharge Order (Routine); Ordered 09/06/18 Ordered By: Eusebio Rasmussen Skilled Items Patient informed of condition?: Yes DNR: No Discharge Level of Care: Acute rehab Communicable Disease: No Discharge Prognosis: Stable Admission Data Admit Date/Time: 09/01/18 08:14 Attending Provider: Eusebio Rasmussen Admit Provider: Victor Hugo Carias Primary Care Provider: Kvng Allison Other Providers: aMrcia Gomez ; Kale Flores ; Victor Hugo Carias Service: Medical
--- NOTE | 2018-09-12 09:08 | Coding Query ---
CODING QUERY To promote full compliance with coding requirements relating to patient care, provider participation is requested in all cases of certified professional coder uncertainty. Please assist us with the question(s) below: Coding Question(s): There is documentation of PMHx of Glioblastoma Multiforme s/p resection in 2003 and 2006 with residual left sided deficits with the physical description of Neurologic/Psychiatric of Left side weaker than right side because history of brain surgery glioblastoma. Please clarify below, in your clinical opinion. ( x ) The residual left sided deficits/left side weakness is likely a sequela of the glioblastoma ( ) The residual left sided deficits/left sided weakness is likely a post- operative complication resulting from the resection procedure ( ) The residual left sided deficits/left sided weakness is likely due to other etiology: Please specify Physician's Response(s): Thank you Ebony Brambila Principal Diagnosis: "that condition established after study, to be chiefly responsible for occasioning the admission of the patient to the hospital for care." Co-Existing Principal Diagnosis: "when two or more diagnoses equally meet the criteria for principal diagnosis as determined by the circumstances of admission , diagnostic work up, and/or therapy provided, and the Alphabetic Index, Tabular List, or another coding guideline does not provide sequencing direction , any one of the diagnoses may be sequenced first." "When the physician has documented what appears to be a current diagnosis in the body of the record, but has not included the diagnosis in the final diagnostic statement, the physician should be asked whether the diagnosis should be added." (Source [facility] 2 QTR90. p3-4) ESCOBAR
== END 2018-09-06 15:00 | DRG 95 ==
LOC: ED 03:45 → SUATTDRO 08:14 → 2W 08:14

== ENCOUNTER 2019-07-22 06:23 | Inpatient (IN) ==
[2019-07-22] MEDS ORDERED: SODIUM CHLORIDE 0.9% 1000ML 1,000 ML IV ONE (06:43)
[2019-07-22] MEDS ORDERED: METOCLOPRAMIDE HCL INJ 5 MG/ML 2 ML VIAL IV STA (06:43)
[2019-07-22 07:03] LABS: Basophils # (auto) 0.01 K/uL (0-0.2); Basophils % (auto) 0.1 %; Eosinophils # (auto) 0.03 K/uL (0-0.5); Eosinophils % (auto) 0.3 %; Hematocrit (blood only) 46.6 % (42-52); Hemoglobin 16.1 g/dL (14.0-18.0); Immature Granulocytes # (auto) 0.02 K/uL (0.00-0.02); Immature Granulocytes % (auto) 0.2 %; Lymphocytes # (auto) 0.85 K/uL (1.2-3.4); Mean Corpuscular Hemoglobin 33.8 pg (25-34); Mean Corpuscular Hgb Conc 34.5 g/dL (32-36); Mean Corpuscular Volume 97.9 fL (80-100); Mean Platelet Volume 9.5 fL (7.4-10.4); Monocytes # (auto) 0.65 K/uL (0.11-0.59); Monocytes % (auto) 6.9 %; Neutrophils # (auto) 7.85 K/uL (1.4-6.5); Neutrophils % (auto) 83.5 %; Platelet Count 205 K/uL (130-400); RDW Standard Deviation 50.4 fL (36.4-46.3); Red Blood Count 4.76 M/uL (4.7-6.1); White Blood Count 9.41 K/uL (4.8-10.8)
[2019-07-22 07:18] LABS: Appearance Urine Cloudy (Clear); Bacteria Urine Automated Negative (Negative); Bilirubin Urine Negative (Negative); Blood Urine Negative (Negative); Color Urine Dark Yellow; Glucose Urine UA Negative (Negative); Ketones Urine Negative (Negative); Leukocyte Esterase Urine Negative (Negative); Nitrite Urine Negative (Negative); RBC Urine Automated 0-4 /hpf (0-4); Specific Gravity Urine 1.025 (1.000-1.030); Urobilinogen Urine Negative (Negative); pH Urine >= 9.0 (4.5-7.5)
[2019-07-22 07:20] LABS: Protein Urine Negative (Negative); Sulfosalicylic Acid Urine Negative (Negative)
[2019-07-22 07:20] LABS: BUN Creatinine Ratio 12.3 (10-20); Calcium 9.8 mg/dl (8.5-10.1); Creatinine Clr Calc Pharmacy 79.5 ml/min; Est GFR (African American) 75.4; Est GFR (Non-African American) 65.1
[2019-07-22 07:23] LABS: Bilirubin,Total 0.5 mg/dl (0.2-1)
[2019-07-22] MEDS ORDERED: IOVERSOL 100ml IV PRN (07:36)
--- NOTE | 2019-07-22 07:54 | CT Scan Report ---
ABDOMEN AND PELVIS CT WITH IV CONTRAST CT DOSE: 1137.00 mGycm HISTORY: Acute epigastric abdominal pain Pt c/o epigastric pain TECHNIQUE: Multiaxial CT images of the abdomen and pelvis were performed following the IV administrat ion of 94 cc of Optiray 320, A dose lowering technique was utilized adhering to the principles of [place]. COMPARISON STUDY: CT lumbar spine 09/02/2018 FINDINGS: Right hemidiaphragmatic elevation. Mild bibasilar opacities suggest atelectasis. There is no pneumato sis or pneumoperitoneum. The imaged inferior cardiac chambers are unremarkable with coronary arterial calcifications. Trace pericardial effusion. Gallbladder, spleen, liver, pancreas and adrenal glands appear unremarkable. Renal sinus cysts are present bilaterally. There are a few subcentimeter cortica l hypodense lesions of the kidneys which are too small to characterize. Possible punctate calculus of the superior pole left kidney. No ureteral calculi or obstructive uropathy. Decompressed urinary aba dder. Small fat filled bilateral inguinal hernias. Calcified plaque of the abdominal aorta without an eurysm. There is no adenopathy. . Fluid-filled distended stomach. Dilated fluid-filled duodenum and proximal jejunum with fat fluid l evels. Dilated bowel measures up to 4.1 cm transversely. Mild interloop edema with mild reactive trac e free fluid. Stool-filled loops of small bowel of the anterior central and lower abdomen with a foca l transition point noted on image 303 of series 3 in the lower central abdomen, likely secondary to s mall bowel adhesions with angular decompressed loops seen distally to this area. Large bowel is decom pressed. Mild colonic diverticulosis without acute diverticulitis. Normal appendix and terminal ileum . Small fat filled periumbilical hernia. Bones appear to be intact. Degenerative changes of the spine , pelvis and hips. Remote fracture of the posterior right 11th rib. Remote bilateral L5 pars defects with grade 1 anterolisthesis L5 on S1. IMPRESSION: 1. Small bowel obstruction appears to be high-grade and is likely secondary to adhesions with transit ion point within the right paracentral mid to lower lower abdomen. 2. No pneumatosis or pneumoperitoneum. 3. Normal appendix. 4. Additional findings as above. Electronically signed by: José Luis Martinez M.D. 07/22/2019 7:53 AM
[2019-07-22 08:21] LABS: Prothrombin Time 28.8 Seconds (9.0-12.0)
--- NOTE | 2019-07-22 08:53 | History & Physical Report ---
Date of Service July 22, 2019 Assessment & Plan (1) SBO (small bowel obstruction): High-grade. Etiology? No prior history of intra-abdominal surgery. Has had pSBO or SBO in the past, however. Fortunately those episodes resolved with nonoperative management. NG tube placement was attempted in the ER without success. I spoke with Dr Em from general surgery who will consult. In meantime - * IVF * NPO * IV pain meds and anti-emetics * may need upper GI w/ small-bowel follow-through this admission to determine anatomy/transition point - defer this to gen surg * IV H2 beni while NPO * consider repeat abd x-rays in am (2) Seizure disorder: Last seizure ~1 month ago. Cont dilantin - give IV 200mg BID. Cont lamictal 250mg BID - no IV formulation - give PO w/ sip of water. Place on telemetry. (3) History of meningitis: Recurrent. Takes amox for prophylaxis. Change amoxicillin to ampicillin 500mg once daily IV. (4) Chronic anticoagulation: coumadin, for prior LLE DVT. HOLD coumadin for now in the event he needs surgical intervention for SBO. Once INR is <2 consider heparin bridge. Daily INR while hospitalized. 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 See above in "chronic anticoagulation." (6) Hemiparesis of left nondominant side: 2nd to prior intra-cranial surgery performed in 2006. 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 (7) DVT prophylaxis: see discussion above in "chronic anticoagulation" I am concerned that during his NG tube placement attempt he may have aspirated stomach contents as he had prolific vomiting during the procedure. Fortunately his O2 sats are thus far stable. He will be monitored carefully on the tele unit for any evidence of developing pulmonary process. updated at bedside. Repeat labs ordered for the AM. History of Present Illness Chief Complaint: abdominal pain Primary Care Provider: Kvng Allison MD 63yo male with history of glioblastoma multiforme with original resection in 2003 at [facility], followed by repeat surgery in 2006 at [facility] (ultimately there was no recurrent cancer just scar tissue and a "bloot clot" per ), along with seizure disorder and LLE DVT in 2019 who presents with nausea, abdominal bloating, and abdominal pain. Over the weekend the patient's states he looked bloated to her. Then, on Monday am, he complained of upper abdominal pain after eating a bowl of cereal. The pain resolved as the day went on, but after eating dinner, the abdominal pain returned. The pain got quite severe in the middle of the night prompting a visit to our ER. He had not vomited until attempts at NG tube placement occurred in our ER. NG tube placement was not successful. CT abd/pelvis revealed a high-grade SBO. He has had SBO on at least 2 prior occasions with 1 of them requiring NG tube placement. Both episodes resolved without surgery. He has NEVER had intra-abdominal surgery in the past. Last bowel movement and flatus was yesterday am following breakfast. Allergies Allergy/AdvReac Type Severity Reaction Status Date / Time No Known Allergies Allergy ` Verified 07/22/19 07:22 Home Medications Home Medications Medication Instructions Recorded Confirmed Type lorazepam 1 mg PO DAILY PRN 07/18/18 07/22/19 History amoxicillin 500 mg PO DAILY@1600 03/11/19 07/22/19 History phenytoin sodium extended 200 mg PO QAM 03/11/19 07/22/19 History phenytoin sodium extended 100 mg 200 mg PO HS cap 03/14/19 07/22/19 History capsule lamotrigine 200 mg tablet 200 mg PO BID #60 tab 04/22/19 07/22/19 Rx lamotrigine 25 mg tablet 50 mg PO BID #120 tab 04/22/19 07/22/19 Rx warfarin [Coumadin] 5 mg PO DAILY@1600 07/22/19 07/22/19 History Past Med/Surg History Medical History Hx of brain cancer (Chronic) Glioblastoma Multiforme - 2003 - s/p resection [facility] Meningitis (Resolved) multiple episodes Partial small bowel obstruction (Resolved) DVT (deep venous thrombosis) Influenza A SBO (small bowel obstruction) (Resolved 04/24/14) Closed left clavicular fracture (Acute) Seizure disorder (Acute) Surgical History Hx of brain surgery (Chronic) 2003 initial resection for GBM at [facility]; 2006 - 2nd surgery, this time at [facility], ultimately was discovered to have blood clot & scar tissue rather than recurrent cancer H/O cataract removal with insertion of prosthetic lens H/O shoulder surgery Family History Father CHF (congestive heart failure) Social History Preferred Language: Irish Communication Ability: Effective Box Worker Required: No Beliefs That Will Affect Care: None marital status: Current Living Situation: Spouse Current Living Situation Comment: lives in [facility] [place] [facility]; 2 children 1st marriage; 2 children 2nd marriage Other Information That Helps Us Care for You: 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 Feels Safe at Home: Yes Safety Concerns: Feels Safe At This Time Smoking Status: Never smoker Hx Alcohol Use: Yes Alcohol Intake Frequency Comment: drank heavily in past- none currently Hx Substance Use: No Review of Systems Constitutional: no fever, no chills, no fatigue, no anorexia, no weight loss and no weight gain Eyes: + loss of peripheral vision (left visual field - chronic ) Ear, Nose, Mouth, Throat: + dysphagia (chronic) Respiratory: no cough and no dyspnea Cardiovascular: no chest pain Gastrointestinal: + abdominal pain, + bloating, + nausea and + vomiting; no blood in stools Genitourinary: no dysuria Musculoskeletal: no back pain and no joint pain Integumentary: no rash Neurologic: + localized weakness (left arm/left leg - chronic ) Endocrine: no diabetes Physical Exam Constitutional: well developed, well nourished and + acute distress (due to prior NG tube attempts); no altered mental status Eyes: PERRL (lens implants b/l ) ENMT: Mouth: oral mucous membranes not dry bloody nares; scars present on right anabaptist area of scalp Neck: trachea midline, no thyromegaly Respiratory: normal respiratory effort; no respiratory distress occasional crackle otherwise CTA b/l Cardiovascular: Rate/Rhythm: regular rhythm and + tachycardic Heart Sounds: normal S1 and normal S2; no murmur Vessels: posterior tibial pulses present and dorsalis pedis pulses present; no JVD Extremities: + edema (trace left leg) Gastrointestinal (Abdomen): Inspection/Auscultation: + abdomen distended (marked ) and normal bowel sounds Percussion/Palpation: abdomen nontender and no hepatosplenomegaly Musculoskeletal: strength LUE and LLE 4-5/5; 5/5 RUE/RLE Skin: no rashes, warm and dry Neurologic: + focal motor deficit (LUE/LLE - 4-5/5 strength; slightly brisk reflexes on left) Speech / Cognition: normal speech Psychiatric: Orientation: alert and oriented x 3 Lymphatic: no cervical lymphadenopathy Results & Data Vital Signs (Past 12 Hours) Vital Signs Temp Pulse Pulse Resp BP BP Pulse Ox 07/22/19 07:56 95 H 17 155/105 H 93 07/22/19 06:25 36.7 C 105 H 16 160/112 H 93 Laboratory Results Laboratory Results - last 24 hr 07/22/19 07/22/19 07/22/19 06:53 06:53 06:53 WBC 9.41 RBC 4.76 Hgb 16.1 POC Hgb Hct 46.6 POC Hct MCV 97.9 MCH 33.8 MCHC 34.5 RDW Std Deviation 50.4 H RDW Coeff of Paul 14.0 Plt Count 205 MPV 9.5 Immature Gran % (Auto) 0.2 Neut % (Auto) 83.5 Lymph % (Auto) 9.0 [place] % (Auto) 6.9 Eos % (Auto) 0.3 Baso % (Auto) 0.1 Immature Gran # (Auto) 0.02 Neut # (Auto) 7.85 H Lymph # (Auto) 0.85 L [place] # (Auto) 0.65 H Eos # (Auto) 0.03 Baso # (Auto) 0.01 PT Cancelled INR Cancelled POC Sodium Sodium 137 POC Potassium Potassium 4.0 POC Chloride Chloride 101 Carbon Dioxide 28 POC Total CO2 Anion Gap 8.0 POC Anion Gap POC BUN BUN 15 Creatinine 1.19 POC Creatinine Est Cr Clr Drug Dosing 79.5 Est GFR ( Amer) 75.4 Est GFR (Non-Af Amer) 65.1 BUN/Creatinine Ratio 12.3 Glucose 120 H POC Glucose (other) Calcium 9.8 POC Ioniz Calcium Lily Magnesium Total Bilirubin 0.5 AST 19 ALT 34 Alkaline Phosphatase 185 H Total Protein 8.0 Albumin 4.0 Globulin 4.0 Albumin/Globulin Ratio 1.0 Lipase 83 Urine Color Urine Appearance Urine pH Ur Specific [place] Urine Protein Urine Glucose (UA) Urine Ketones Urine Blood Urine Nitrite Urine Bilirubin Urine Urobilinogen Ur Leukocyte Esterase Urine WBC (Auto) Urine RBC (Auto) U Hyaline Cast (Auto) U Epithel Cells (Auto) Urine Bacteria (Auto) Phenytoin 07/22/19 07/22/19 07/22/19 06:53 06:53 07:06 WBC RBC Hgb POC Hgb Hct POC Hct MCV MCH MCHC RDW Std Deviation RDW Coeff of Paul Plt Count MPV Immature Gran % (Auto) Neut % (Auto) Lymph % (Auto) [place] % (Auto) Eos % (Auto) Baso % (Auto) Immature Gran # (Auto) Neut # (Auto) Lymph # (Auto) [place] # (Auto) Eos # (Auto) Baso # (Auto) PT INR POC Sodium Sodium POC Potassium Potassium POC Chloride Chloride Carbon Dioxide POC Total CO2 Anion Gap POC Anion Gap POC BUN BUN Creatinine POC Creatinine Est Cr Clr Drug Dosing Est GFR ( Amer) Est GFR (Non-Af Amer) BUN/Creatinine Ratio Glucose POC Glucose (other) Calcium POC Ioniz Calcium Lily Magnesium 2.1 Total Bilirubin AST ALT Alkaline Phosphatase Total Protein Albumin Globulin Albumin/Globulin Ratio Lipase Urine Color Dark Yellow Urine Appearance Cloudy A Urine pH >= 9.0 H Ur Specific [place] 1.025 Urine Protein Negative Urine Glucose (UA) Negative Urine Ketones Negative Urine Blood Negative Urine Nitrite Negative Urine Bilirubin Negative Urine Urobilinogen Negative Ur Leukocyte Esterase Negative Urine WBC (Auto) 1-5 Urine RBC (Auto) 0-4 U Hyaline Cast (Auto) 1-5 U Epithel Cells (Auto) 10-20 H Urine Bacteria (Auto) Negative Phenytoin 13.4 07/22/19 07/22/19 07:58 08:04 WBC RBC Hgb POC Hgb 16.0 Hct POC Hct 47 MCV MCH MCHC RDW Std Deviation RDW Coeff of Paul Plt Count MPV Immature Gran % (Auto) Neut % (Auto) Lymph % (Auto) [place] % (Auto) Eos % (Auto) Baso % (Auto) Immature Gran # (Auto) Neut # (Auto) Lymph # (Auto) [place] # (Auto) Eos # (Auto) Baso # (Auto) PT 28.8 H INR 3.0 H POC Sodium 137 Sodium POC Potassium 4.0 Potassium POC Chloride 101 Chloride Carbon Dioxide POC Total CO2 29 Anion Gap POC Anion Gap 12.0 L POC BUN 14 BUN Creatinine POC Creatinine 1.0 Est Cr Clr Drug Dosing Est GFR ( Amer) Est GFR (Non-Af Amer) BUN/Creatinine Ratio Glucose POC Glucose (other) 121 H Calcium POC Ioniz Calcium Lily 1.17 Magnesium Total Bilirubin AST ALT Alkaline Phosphatase Total Protein Albumin Globulin Albumin/Globulin Ratio Lipase Urine Color Urine Appearance Urine pH Ur Specific [place] Urine Protein Urine Glucose (UA) Urine Ketones Urine Blood Urine Nitrite Urine Bilirubin Urine Urobilinogen Ur Leukocyte Esterase Urine WBC (Auto) Urine RBC (Auto) U Hyaline Cast (Auto) U Epithel Cells (Auto) Urine Bacteria (Auto) Phenytoin Diagnostic Findings CT abd/pelvis - high grade SBO with transition point right side of abdomen. Code Status & VTE Plan Code Status DNR / DNI; wishes confirmed w/ at bedside VTE Prophylaxis Plan VTE Prophylaxis will be ordered: Yes PG Care Time/CCT Total # of Minutes Spent Total Time Spent with Patient: Total time spent is greater than 50% in coordination of care (as documented) at patient's floor/unit and/or counseling patient: (1) Hemiparesis of left nondominant side Hemiparesis etiology: non-cerebrovascular etiology Qualified Code(s): G81.94 - Hemiplegia, unspecified affecting left nondominant side
[2019-07-22 09:35] LABS: iSTAT Ionized Calcium 1.17 mmol/l (1.12-1.32)
[2019-07-22] MEDS ORDERED: LORazepam 1 MG/2 ML VIAL IV PRN (09:52)
[2019-07-22] MEDS ORDERED: ONDANSETRON INJ 2 MG/ML 2 ML VIAL IV PRN (09:52)
[2019-07-22] MEDS ORDERED: MoRPHine SULFATE 2 MG/ML CARP IV PRN (09:52)
[2019-07-22] MEDS: D5NSS + 20MEQ KCL 20 MEQ/1,000 ML BAG IV SCH ×2 (10:38→20:17)
[2019-07-22] MEDS: SODIUM CHLORIDE 0.9% 10ML FLUSH IV SCH ×2 (10:41→20:21)
[2019-07-22] MEDS: lamoTRIgine 100 MG TAB PO SCH ×2 (10:41→20:20)
[2019-07-22] MEDS: PHENYTOIN 200 MG in SYRINGE 0 ML IV SCH ×2 (10:41→20:21)
[2019-07-22] MEDS: lamoTRIgine 25 MG TAB PO SCH ×2 (10:41→20:20)
[2019-07-22] MEDS: AMPICILLIN 500 MG in SODIUM CHLORIDE 0.9% 50 ML IV SCH (11:31)
[2019-07-22] MEDS: ACETAMINOPHEN 500 MG TAB PO PRN ×2 (14:53→23:22)
--- NOTE | 2019-07-22 14:53 | Surgery Consultation ---
Date of Consultation July 22, 2019 Assessment & Plan (1) SBO (small bowel obstruction): 63 year-old male with history of SBO in past treated conservatively without an abdominal surgical history presented to ED with complaint of abdominal pain, bloating and nausea. CT scan concerning for high grade SBO with transition point. No leukocytosis. Prior to my examination patient passing flatus and had bowel movement. Plan: Given recurrent episodes of SBO without abdominal surgical history concern for the cause of SBO. Could have adhesions but would want to rule out intra-luminal mass or stricture. He should have MRE or small bowel follow through to further evaluate small bowel once through this acute phase. Highly encouraged patient to consider screening colonoscopy as an outpatient for colorectal screening Continue NPO for now for bowel rest Continue IV fluids Continue medical management Dr. Em has seen and examined pt, agrees with above. Supervising Physician Co-Signing Physician Notes I interviewed and examined this patient I agree with the above note. This patient had evidence of a small bowel obstruction but has already started to move his bowels and passed flatus and his pain is resolved. His abdomen is no longer distended. I would continue with conservative measures. History of Present Illness Reason for Consultation: SBO Requesting Physician: Joel Wells Attending Physician: Joel Wells History of Present Illness Balbir is a 63 year-old male with history of prior small bowel resection who presented to ED last night with abdominal pain and associated nausea and bloating that started last night after dinner. Balbir states he had large dinner with roast beef , corn, mashed potatoes and pain started after that. Last bowel movement was 2 am small and hard. History of small bowel obstruction in past which was treated with medical management and required NGT for one of them. No prior abdominal surgeries. Has never had colonoscopy. Denies family history of colon cancer or inflammatory bowel disease. No recent changes in bowel habits or caliber, no blood in stools, or black/tarry stools. CT scan of abdomen and pelvis showing small bowel obstruction appears to be high-grade and is likely secondary to adhesions with transition point within the right paracentral mid to lower lower abdomen. No leukocytosis. Attempt at NGT insertion in the ED which was unsuccessful with multiple attempts, patient had profuse vomiting during these attempts. Since admission and during my examination patient states he was passing gas and had an explosive bowel movement. Mostly liquid. No abdominal pain, no nausea, or vomiting. Feeling much better. Allergies Allergy/AdvReac Type Severity Reaction Status Date / Time No Known Allergies Allergy ` Verified 07/22/19 07:22 Home Medications Home Medications Medication Instructions Recorded Confirmed Type lorazepam 1 mg PO DAILY PRN 07/18/18 07/22/19 History amoxicillin 500 mg PO DAILY@1600 03/11/19 07/22/19 History phenytoin sodium extended 200 mg PO QAM 03/11/19 07/22/19 History phenytoin sodium extended 100 mg 200 mg PO HS cap 03/14/19 07/22/19 History capsule lamotrigine 200 mg tablet 200 mg PO BID #60 tab 04/22/19 07/22/19 Rx lamotrigine 25 mg tablet 50 mg PO BID #120 tab 04/22/19 07/22/19 Rx warfarin [Coumadin] 5 mg PO DAILY@1600 07/22/19 07/22/19 History Patient History Medical History Hx of brain cancer (Chronic) Glioblastoma Multiforme - 2004 - s/p resection [facility] Meningitis (Resolved) multiple episodes Partial small bowel obstruction (Resolved) DVT (deep venous thrombosis) Influenza A SBO (small bowel obstruction) (Acute 04/24/14) Closed left clavicular fracture (Acute) Seizure disorder (Acute) Surgical History Hx of brain surgery (Chronic) 2004 initial resection for GBM at [facility]; 2006 - 2nd surgery, this time at [facility], ultimately was discovered to have blood clot & scar tissue rather than recurrent cancer H/O cataract removal with insertion of prosthetic lens H/O shoulder surgery Family History Father CHF (congestive heart failure) Social History Preferred Language: Barbadian Communication Ability: Effective 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 Beliefs That Will Affect Care: None marital status: Current Living Situation: Spouse Current Living Situation Comment: lives in [facility]; 2 children 1st marriage; 2 children 2nd marriage Other Information That Helps Us Care for You: 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 Feels Safe at Home: Yes Safety Concerns: Feels Safe At This Time Smoking Status: Never smoker Hx Alcohol Use: Yes Alcohol Intake Frequency Comment: drank heavily in past- none currently Hx Substance Use: No Review of Systems Review of Systems: All systems reviewed & are unremarkable except as noted in HPI & below Physical Exam Respiratory: normal respiratory effort, lungs clear to auscultation Cardiovascular: RRR, no murmur, no edema Gastrointestinal (Abdomen): Inspection/Auscultation: abdomen normal to inspection; abdomen not distended Percussion/Palpation: abdomen soft; abdomen nontender, no guarding and abdomen not rigid Skin: no rashes, warm and dry Psychiatric: A+Ox3, euthymic affect Results & Data Vital Signs (Past 12 Hours) Vital Signs Temp Pulse Pulse Resp BP BP BP 07/22/19 11:37 37.2 C 100 H 18 134/94 07/22/19 10:00 37.0 C 113 H 16 121/90 07/22/19 09:00 116 H 18 153/116 H 07/22/19 07:56 95 H 17 155/105 H 07/22/19 06:25 36.7 C 105 H 16 160/112 H Pulse Ox 07/22/19 11:37 92 07/22/19 10:00 97 07/22/19 09:00 98 07/22/19 07:56 93 07/22/19 06:25 93 Laboratory Results 07/22/19 07/22/19 07/22/19 Range/Units 08:04 07:58 07:06 WBC (4.8-10.8) K/uL RBC (4.7-6.1) M/uL Hgb (14.0-18.0) g/dL POC Hgb 16.0 (14.0-18.0) g/dl Hct (42-52) % POC Hct 47 (42-52) % MCV (80-100) fL MCH (25-34) pg MCHC (32-36) g/dL RDW Std Deviation (36.4-46.3) fL RDW Coeff of Paul (11.5-14.5) % Plt Count (130-400) K/uL MPV (7.4-10.4) fL Immature Gran % (Auto) % Neut % (Auto) % Lymph % (Auto) % Bibb % (Auto) % Eos % (Auto) % Baso % (Auto) % Immature Gran # (Auto) (0.00-0.02) K/uL Neut # (Auto) (1.4-6.5) K/uL Lymph # (Auto) (1.2-3.4) K/uL Bibb # (Auto) (0.11-0.59) K/uL Eos # (Auto) (0-0.5) K/uL Baso # (Auto) (0-0.2) K/uL PT 28.8 H INR 3.0 H POC Sodium 137 (135-144) mEq/L Sodium (136-145) mmol/L POC Potassium 4.0 (3.3-5.0) mEq/L Potassium (3.5-5.1) mmol/L POC Chloride 101 (101-112) mEq/L Chloride (98-107) mmol/L Carbon Dioxide (21-32) mmol/L POC Total CO2 29 (24-31) mEq/l Anion Gap (3-11) POC Anion Gap 12.0 L (16-25) mmol/L POC BUN 14 (7-18) mg/dl BUN (7-18) mg/dl Creatinine (0.6-1.4) mg/dl POC Creatinine 1.0 (0.6-1.3) mg/dl Est Cr Clr Drug Dosing ml/min Est GFR ( Amer) Est GFR (Non-Af Amer) BUN/Creatinine Ratio (10-20) Glucose (70-99) mg/dl POC Glucose (other) 121 H (70-99) mg/dl Calcium (8.5-10.1) mg/dl POC Ioniz Calcium Lily 1.17 (1.12-1.32) mmol/l Magnesium (1.8-2.4) mg/dl Total Bilirubin (0.2-1) mg/dl AST (15-37) U/L ALT (12-78) U/L Alkaline Phosphatase (45-117) U/L Total Protein (6.4-8.2) gm/dl Albumin (3.4-5.0) gm/dl Globulin (2.5-4.0) gm/dl Albumin/Globulin Ratio (0.9-2) Lipase (73-393) U/L Urine Color Dark Yellow Urine Appearance Cloudy A (Clear) Urine pH >= 9.0 H (4.5-7.5) Ur Specific Francis 1.025 (1.000-1.030) Urine Protein Negative (Negative) Urine Glucose (UA) Negative (Negative) Urine Ketones Negative (Negative) Urine Blood Negative (Negative) Urine Nitrite Negative (Negative) Urine Bilirubin Negative (Negative) Urine Urobilinogen Negative (Negative) Ur Leukocyte Esterase Negative (Negative) Urine WBC (Auto) 1-5 (0-5) /hpf Urine RBC (Auto) 0-4 (0-4) /hpf U Hyaline Cast (Auto) 1-5 (0-5) /lpf U Epithel Cells (Auto) 10-20 H (0-5) /lpf Urine Bacteria (Auto) Negative (Negative) Phenytoin (10-20) mcg/ml 07/22/19 07/22/19 07/22/19 Range/Units 06:53 06:53 06:53 WBC (4.8-10.8) K/uL RBC (4.7-6.1) M/uL Hgb (14.0-18.0) g/dL POC Hgb (14.0-18.0) g/dl Hct (42-52) % POC Hct (42-52) % MCV (80-100) fL MCH (25-34) pg MCHC (32-36) g/dL RDW Std Deviation (36.4-46.3) fL RDW Coeff of Paul (11.5-14.5) % Plt Count (130-400) K/uL MPV (7.4-10.4) fL Immature Gran % (Auto) % Neut % (Auto) % Lymph % (Auto) % Bibb % (Auto) % Eos % (Auto) % Baso % (Auto) % Immature Gran # (Auto) (0.00-0.02) K/uL Neut # (Auto) (1.4-6.5) K/uL Lymph # (Auto) (1.2-3.4) K/uL Bibb # (Auto) (0.11-0.59) K/uL Eos # (Auto) (0-0.5) K/uL Baso # (Auto) (0-0.2) K/uL PT Cancelled INR Cancelled POC Sodium (135-144) mEq/L Sodium (136-145) mmol/L POC Potassium (3.3-5.0) mEq/L Potassium (3.5-5.1) mmol/L POC Chloride (101-112) mEq/L Chloride (98-107) mmol/L Carbon Dioxide (21-32) mmol/L POC Total CO2 (24-31) mEq/l Anion Gap (3-11) POC Anion Gap (16-25) mmol/L POC BUN (7-18) mg/dl BUN (7-18) mg/dl Creatinine (0.6-1.4) mg/dl POC Creatinine (0.6-1.3) mg/dl Est Cr Clr Drug Dosing ml/min Est GFR ( Amer) Est GFR (Non-Af Amer) BUN/Creatinine Ratio (10-20) Glucose (70-99) mg/dl POC Glucose (other) (70-99) mg/dl Calcium (8.5-10.1) mg/dl POC Ioniz Calcium Lily (1.12-1.32) mmol/l Magnesium 2.1 (1.8-2.4) mg/dl Total Bilirubin (0.2-1) mg/dl AST (15-37) U/L ALT (12-78) U/L Alkaline Phosphatase (45-117) U/L Total Protein (6.4-8.2) gm/dl Albumin (3.4-5.0) gm/dl Globulin (2.5-4.0) gm/dl Albumin/Globulin Ratio (0.9-2) Lipase (73-393) U/L Urine Color Urine Appearance (Clear) Urine pH (4.5-7.5) Ur Specific Francis (1.000-1.030) Urine Protein (Negative) Urine Glucose (UA) (Negative) Urine Ketones (Negative) Urine Blood (Negative) Urine Nitrite (Negative) Urine Bilirubin (Negative) Urine Urobilinogen (Negative) Ur Leukocyte Esterase (Negative) Urine WBC (Auto) (0-5) /hpf Urine RBC (Auto) (0-4) /hpf U Hyaline Cast (Auto) (0-5) /lpf U Epithel Cells (Auto) (0-5) /lpf Urine Bacteria (Auto) (Negative) Phenytoin 13.4 (10-20) mcg/ml 07/22/19 07/22/19 Range/Units 06:53 06:53 WBC 9.41 (4.8-10.8) K/uL RBC 4.76 (4.7-6.1) M/uL Hgb 16.1 (14.0-18.0) g/dL POC Hgb (14.0-18.0) g/dl Hct 46.6 (42-52) % POC Hct (42-52) % MCV 97.9 (80-100) fL MCH 33.8 (25-34) pg MCHC 34.5 (32-36) g/dL RDW Std Deviation 50.4 H (36.4-46.3) fL RDW Coeff of Paul 14.0 (11.5-14.5) % Plt Count 205 (130-400) K/uL MPV 9.5 (7.4-10.4) fL Immature Gran % (Auto) 0.2 % Neut % (Auto) 83.5 % Lymph % (Auto) 9.0 % Bibb % (Auto) 6.9 % Eos % (Auto) 0.3 % Baso % (Auto) 0.1 % Immature Gran # (Auto) 0.02 (0.00-0.02) K/uL Neut # (Auto) 7.85 H (1.4-6.5) K/uL Lymph # (Auto) 0.85 L (1.2-3.4) K/uL Bibb # (Auto) 0.65 H (0.11-0.59) K/uL Eos # (Auto) 0.03 (0-0.5) K/uL Baso # (Auto) 0.01 (0-0.2) K/uL PT INR POC Sodium (135-144) mEq/L Sodium 137 (136-145) mmol/L POC Potassium (3.3-5.0) mEq/L Potassium 4.0 (3.5-5.1) mmol/L POC Chloride (101-112) mEq/L Chloride 101 (98-107) mmol/L Carbon Dioxide 28 (21-32) mmol/L POC Total CO2 (24-31) mEq/l Anion Gap 8.0 (3-11) POC Anion Gap (16-25) mmol/L POC BUN (7-18) mg/dl BUN 15 (7-18) mg/dl Creatinine 1.19 (0.6-1.4) mg/dl POC Creatinine (0.6-1.3) mg/dl Est Cr Clr Drug Dosing 79.5 ml/min Est GFR ( Amer) 75.4 Est GFR (Non-Af Amer) 65.1 BUN/Creatinine Ratio 12.3 (10-20) Glucose 120 H (70-99) mg/dl POC Glucose (other) (70-99) mg/dl Calcium 9.8 (8.5-10.1) mg/dl POC Ioniz Calcium Lily (1.12-1.32) mmol/l Magnesium (1.8-2.4) mg/dl Total Bilirubin 0.5 (0.2-1) mg/dl AST 19 (15-37) U/L ALT 34 (12-78) U/L Alkaline Phosphatase 185 H (45-117) U/L Total Protein 8.0 (6.4-8.2) gm/dl Albumin 4.0 (3.4-5.0) gm/dl Globulin 4.0 (2.5-4.0) gm/dl Albumin/Globulin Ratio 1.0 (0.9-2) Lipase 83 (73-393) U/L Urine Color Urine Appearance (Clear) Urine pH (4.5-7.5) Ur Specific Francis (1.000-1.030) Urine Protein (Negative) Urine Glucose (UA) (Negative) Urine Ketones (Negative) Urine Blood (Negative) Urine Nitrite (Negative) Urine Bilirubin (Negative) Urine Urobilinogen (Negative) Ur Leukocyte Esterase (Negative) Urine WBC (Auto) (0-5) /hpf Urine RBC (Auto) (0-4) /hpf U Hyaline Cast (Auto) (0-5) /lpf U Epithel Cells (Auto) (0-5) /lpf Urine Bacteria (Auto) (Negative) Phenytoin (10-20) mcg/ml Diagnostic Findings ABDOMEN AND PELVIS CT WITH IV CONTRAST CT DOSE: 1137.00 mGycm HISTORY: Acute epigastric abdominal pain Pt c/o epigastric pain TECHNIQUE: Multiaxial CT images of the abdomen and pelvis were performed following the IV administration of 94 cc of Optiray 320, A dose lowering technique was utilized adhering to the principles of ALARA. COMPARISON STUDY: CT lumbar spine 09/02/2018 FINDINGS: Right hemidiaphragmatic elevation. Mild bibasilar opacities suggest atelectasis. There is no pneumatosis or pneumoperitoneum. The imaged inferior cardiac chambers are unremarkable with coronary arterial calcifications. Trace pericardial effusion. Gallbladder, spleen, liver, pancreas and adrenal glands appear unremarkable. Renal sinus cysts are present bilaterally. There are a few subcentimeter cortical hypodense lesions of the kidneys which are too small to characterize. Possible punctate calculus of the superior pole left kidney. No ureteral calculi or obstructive uropathy. Decompressed urinary bladder. Small fat filled bilateral inguinal hernias. Calcified plaque of the abdominal aorta without aneurysm. There is no adenopathy. . Fluid-filled distended stomach. Dilated fluid-filled duodenum and proximal jejunum with fat fluid levels. Dilated bowel measures up to 4.1 cm transversely. Mild interloop edema with mild reactive trace free fluid. Stool-filled loops of small bowel of the anterior central and lower abdomen with a focal transition point noted on image 303 of series 3 in the lower central abdomen, likely secondary to small bowel adhesions with angular decompressed loops seen distally to this area. Large bowel is decompressed. Mild colonic diverticulosis without acute diverticulitis. Normal appendix and terminal ileum. Small fat filled periumbilical hernia. Bones appear to be intact. Degenerative changes of the spine, pelvis and hips. Remote fracture of the posterior right 11th rib. Remote bilateral L5 pars defects with grade 1 anterolisthesis L5 on S1. IMPRESSION: 1. Small bowel obstruction appears to be high-grade and is likely secondary to adhesions with transition point within the right paracentral mid to lower lower abdomen. 2. No pneumatosis or pneumoperitoneum. 3. Normal appendix. 4. Additional findings as above.
--- NOTE | 2019-07-22 15:24 | Emergency Department Note ---
Entered by Jarad Bustillo acting as a scribe for Unruly Blackwell MD History of Present Illness General Chief complaint: Abdominal Pain Stated complaint: STOMACH PAINS-FEELING SICK Time Seen by Provider: 07/22/19 06:35 Source: patient History of Present Illness Provider complaint: Abdominal pain Onset (ago): day(s) 1 Location: abdomen Severity: similar to prior episodes Pain Consistency: + intermittent Maximum Pain Intensity: 5 Current Pain Intensity: 5 Quality: + other (Soreness) Associated symptoms: + nausea/vomiting (No vomiting) The patient is a 63 year old male who presents to the Emergency Room with complaints of intermittent generalized abdominal pain that started yesterday morning after eating breakfast. The patient rates the pain as a 5/10 and notes it is a sore sensation. With the pain the patient has some nausea, but denies any vomiting. The patient adds that he has had multiple bowel obstructions in the past and this feel similar however the patient did move his bowels yesterday. The patient still has his gallbladder and has never had any other abdominal surgery. The patient also mentioned that he ate a lot of food last night for dinner. Home Medications Home Medications Medication Instructions Recorded Confirmed Type lorazepam 1 mg PO DAILY PRN 07/18/18 07/22/19 History amoxicillin 500 mg PO DAILY@1600 03/11/19 07/22/19 History phenytoin sodium extended 200 mg PO QAM 03/11/19 07/22/19 History phenytoin sodium extended 100 mg 200 mg PO HS cap 03/14/19 07/22/19 History capsule lamotrigine 200 mg tablet 200 mg PO BID #60 tab 04/22/19 07/22/19 Rx lamotrigine 25 mg tablet 50 mg PO BID #120 tab 04/22/19 07/22/19 Rx warfarin [Coumadin] 5 mg PO DAILY@1600 07/22/19 07/22/19 History Allergies Allergy/AdvReac Type Severity Reaction Status Date / Time No Known Allergies Allergy ` Verified 07/22/19 07:22 Past Med/Surg History Medical History Hx of brain cancer (Chronic) Glioblastoma Multiforme - 2003 - s/p resection [facility] Meningitis (Resolved) multiple episodes Partial small bowel obstruction (Resolved) DVT (deep venous thrombosis) Influenza A SBO (small bowel obstruction) (Acute 04/24/14) Closed left clavicular fracture (Acute) Seizure disorder (Acute) Surgical History Hx of brain surgery (Chronic) 2004 initial resection for GBM at [facility]; 2007 - 2nd surgery, this time at [facility], ultimately was discovered to have blood clot & scar tissue rather than recurrent cancer H/O cataract removal with insertion of prosthetic lens H/O shoulder surgery Family History Father CHF (congestive heart failure) Social History Preferred Language: Albanian Communication Ability: Effective 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 and A total of 10 systems reviewed and were otherwise negative Physical Exam Vital Signs Vital Signs - 24 hr 07/22/19 07:56 Pulse Rate [Apical] 95 H Pulse Rhythm [Apical] Regular Respiratory Rate 17 Respiratory Effort / Characteristics Non-Labored Spontaneous Respiratory Depth Normal Respiratory Pattern Regular Blood Pressure [Left Arm] 155/105 H Blood Pressure Mean [Left Arm] 121 Pulse Oximetry 93 Oxygen Delivery Method Room Air GENERAL: Awake, alert, well-appearing, in no distress HENT: Normocephalic, atraumatic. Oropharynx unremarkable. EYES: Normal conjunctiva. Sclera non-icteric. NECK: Supple. No nuchal rigidity. FROM. No masses. RESPIRATORY: Clear to auscultation. No wheezes. No rales. Normal respiratory effort. CARDIAC: Normal rate. Normal rhythm. No murmurs. No rubs. Extremities warm and well perfused. Pulses equal. No JVD. GI: Distended and mildly tender throughout. No rebound or guarding. No masses. RECTAL: Deferred. MUSCULOSKELETAL: Atraumatic. Chest examination reveals no tenderness. The back is symmetrical on inspection without obvious abnormality. There is no CVA tenderness to palpation. No joint edema. LOWER EXTREMITIES: Calves are equal size bilaterally and non-tender. No edema. No discoloration. NEURO: Normal sensorium. No sensory or motor deficits noted. Course 0636: Past medical records reviewed. The patient was evaluated in room A09B, and a complete history and physical examination were performed. 0801: I spoke to [facility] PAC about the patient's case. She agreed to be on consult. 0813: I reevaluated the patient and he is resting in bed. I updated him on results and discussed the treatment plan which he is agreeable with. 0825: I spoke to Dr. Wells [facility] Hospitalist about the patient's case. He is going to accept the patient for further evaluation. Consultations Consultation #1: I spoke to [facility] PAC about the patient's case. She agreed to be on consult. Time: 08:01 Consultation #2: I spoke to Dr. Wells [facility] Hospitalist about the patient's case. He is going to accept the patient for further evaluation. Time: 08:25 Administered Medications Acetaminophen (Tylenol) 1,000 mg PO Q6H PRN PRN Reason: Pain Stop: 08/21/19 14:37 Last Admin: 07/22/19 23:22 Dose: 1,000 mg Documented by: [id number] Admin: 07/22/19 14:53 Dose: 1,000 mg Documented by: [id number] Ampicillin Sodium 500 mg/ (Sodium Chloride) 52 mls @ 100 mls/hr IV DAILY DARNELL Stop: 08/21/19 10:29 Last Infusion: 07/22/19 12:12 Dose: 0 mls/hr Documented by: [id number] Admin: 07/22/19 11:31 Dose: 100 mls/hr Documented by: [id number] Potassium Chloride/Dextrose/Sod Cl (D5nss + 20meq Kcl) 20 meq in 1,000 mls @ 125 mls/hr IV .Q8H DARNELL Stop: 08/21/19 09:51 Last Admin: 07/23/19 04:43 Dose: 125 mls/hr Documented by: [id number] Infusion: 07/23/19 04:43 Dose: 125 mls/hr Documented by: [id number] Infusion: 07/23/19 02:57 Dose: 125 mls/hr Documented by: [id number] Infusion: 07/23/19 02:26 Dose: 0 mls/hr Documented by: [id number] Infusion: 07/22/19 21:14 Dose: 125 mls/hr Documented by: [id number] Infusion: 07/22/19 20:19 Dose: 0 mls/hr Documented by: [id number] Admin: 07/22/19 20:17 Dose: 125 mls/hr Documented by: [id number] Infusion: 07/22/19 18:38 Dose: 125 mls/hr Documented by: [id number] Admin: 07/22/19 10:38 Dose: 125 mls/hr Documented by: [id number] Phenytoin 200 mg/ Syringe 4 mls @ 1 mls/min IV BID DARNELL Stop: 08/21/19 09:51 Last Admin: 07/22/19 20:21 Dose: 1 mls/min Documented by: [id number] Admin: 07/22/19 10:41 Dose: Not Given Documented by: [id number] Ranitidine HCl 50 mg/ Dextrose 102 mls @ 200 mls/hr IV Q8H DARNELL Stop: 08/21/19 09:59 Last Infusion: 07/23/19 02:57 Dose: 0 mls/hr Documented by: [id number] Admin: 07/23/19 02:26 Dose: 200 mls/hr Documented by: [id number] Infusion: 07/22/19 21:14 Dose: 0 mls/hr Documented by: [id number] Admin: 07/22/19 20:17 Dose: 200 mls/hr Documented by: [id number] Infusion: 07/22/19 11:14 Dose: 0 mls/hr Documented by: [id number] Admin: 07/22/19 10:43 Dose: 200 mls/hr Documented by: [id number] Lamotrigine (Lamictal) 200 mg PO BID DARNELL Stop: 08/21/19 09:51 Last Admin: 07/22/19 20:20 Dose: 200 mg Documented by: [id number] Admin: 07/22/19 10:41 Dose: Not Given Documented by: [id number] Lamotrigine (Lamictal) 50 mg PO BID DARNELL Stop: 08/21/19 09:51 Last Admin: 07/22/19 20:20 Dose: 50 mg Documented by: [id number] Admin: 07/22/19 10:41 Dose: Not Given Documented by: [id number] Sodium Chloride (Sodium Chloride Flush) 20 ml IV BID DARNELL Stop: 08/21/19 10:00 Last Admin: 07/22/19 20:21 Dose: 20 ml Documented by: [id number] Admin: 07/22/19 10:41 Dose: Not Given Documented by: [id number] Discontinued Medications Sodium Chloride (Nss 1000ml) 1,000 mls @ 999 mls/hr IV .Q1H1M ONE Stop: 07/22/19 07:43 Last Infusion: 07/22/19 09:05 Dose: 0 mls/hr Documented by: [id number] Admin: 07/22/19 07:04 Dose: 999 mls/hr Documented by: [id number] Ioversol (Optiray 320 100ml) 94 ml IV ONCE PRN PRN Reason: Interaction Checking Stop: 07/26/19 07:35 Last Admin: 07/22/19 07:38 Dose: 94 ml Documented by: [id number] Metoclopramide HCl (Reglan) 10 mg IV NOW STA Stop: 07/22/19 06:44 Last Admin: 07/22/19 07:04 Dose: 10 mg Documented by: [id number] Medical Decision Making Differential Diagnosis Differential diagnoses includes but is not limited to gastritis, peptic ulcer disease, GERD, gallbladder disease, pancreatitis, small bowel obstruction, acute coronary syndrome, pericarditis, ischemic bowel, irritable bowel disease, irritable bowel syndrome, appendicitis, diverticulitis, malignancy, hernia, urinary tract infection, torsion, perforation, trauma, infectious. Medical Records Attestation: I reviewed the patient's medical records. Home Medications Current Medication List: was personally reviewed by me Laboratory Data Attestation: I reviewed the patient's lab results. Result diagrams: 07/22/19 06:53 07/22/19 06:53 Lab Results 07/22/19 07/22/19 07/22/19 Range/Units 06:53 06:53 06:53 WBC 9.41 (4.8-10.8) K/uL RBC 4.76 (4.7-6.1) M/uL Hgb 16.1 (14.0-18.0) g/dL POC Hgb (14.0-18.0) g/dl Hct 46.6 (42-52) % POC Hct (42-52) % MCV 97.9 (80-100) fL MCH 33.8 (25-34) pg MCHC 34.5 (32-36) g/dL RDW Std Deviation 50.4 H (36.4-46.3) fL RDW Coeff of Paul 14.0 (11.5-14.5) % Plt Count 205 (130-400) K/uL MPV 9.5 (7.4-10.4) fL Immature Gran % (Auto) 0.2 % Neut % (Auto) 83.5 % Lymph % (Auto) 9.0 % [place] % (Auto) 6.9 % Eos % (Auto) 0.3 % Baso % (Auto) 0.1 % Immature Gran # (Auto) 0.02 (0.00-0.02) K/uL Neut # (Auto) 7.85 H (1.4-6.5) K/uL Lymph # (Auto) 0.85 L (1.2-3.4) K/uL [place] # (Auto) 0.65 H (0.11-0.59) K/uL Eos # (Auto) 0.03 (0-0.5) K/uL Baso # (Auto) 0.01 (0-0.2) K/uL PT Cancelled INR Cancelled POC Sodium (135-144) mEq/L Sodium 137 (136-145) mmol/L POC Potassium (3.3-5.0) mEq/L Potassium 4.0 (3.5-5.1) mmol/L POC Chloride (101-112) mEq/L Chloride 101 (98-107) mmol/L Carbon Dioxide 28 (21-32) mmol/L POC Total CO2 (24-31) mEq/l Anion Gap 8.0 (3-11) POC Anion Gap (16-25) mmol/L POC BUN (7-18) mg/dl BUN 15 (7-18) mg/dl Creatinine 1.19 (0.6-1.4) mg/dl POC Creatinine (0.6-1.3) mg/dl Est Cr Clr Drug Dosing 79.5 ml/min Est GFR ( Amer) 75.4 Est GFR (Non-Af Amer) 65.1 BUN/Creatinine Ratio 12.3 (10-20) Glucose 120 H (70-99) mg/dl POC Glucose (other) (70-99) mg/dl Calcium 9.8 (8.5-10.1) mg/dl POC Ioniz Calcium Lily (1.12-1.32) mmol/l Magnesium (1.8-2.4) mg/dl Total Bilirubin 0.5 (0.2-1) mg/dl AST 19 (15-37) U/L ALT 34 (12-78) U/L Alkaline Phosphatase 185 H (45-117) U/L Total Protein 8.0 (6.4-8.2) gm/dl Albumin 4.0 (3.4-5.0) gm/dl Globulin 4.0 (2.5-4.0) gm/dl Albumin/Globulin Ratio 1.0 (0.9-2) Lipase 83 (73-393) U/L Urine Color Urine Appearance (Clear) Urine pH (4.5-7.5) Ur Specific [place] (1.000-1.030) Urine Protein (Negative) Urine Glucose (UA) (Negative) Urine Ketones (Negative) Urine Blood (Negative) Urine Nitrite (Negative) Urine Bilirubin (Negative) Urine Urobilinogen (Negative) Ur Leukocyte Esterase (Negative) Urine WBC (Auto) (0-5) /hpf Urine RBC (Auto) (0-4) /hpf U Hyaline Cast (Auto) (0-5) /lpf U Epithel Cells (Auto) (0-5) /lpf Urine Bacteria (Auto) (Negative) Phenytoin (10-20) mcg/ml 07/22/19 07/22/19 07/22/19 Range/Units 06:53 06:53 07:06 WBC (4.8-10.8) K/uL RBC (4.7-6.1) M/uL Hgb (14.0-18.0) g/dL POC Hgb (14.0-18.0) g/dl Hct (42-52) % POC Hct (42-52) % MCV (80-100) fL MCH (25-34) pg MCHC (32-36) g/dL RDW Std Deviation (36.4-46.3) fL RDW Coeff of Paul (11.5-14.5) % Plt Count (130-400) K/uL MPV (7.4-10.4) fL Immature Gran % (Auto) % Neut % (Auto) % Lymph % (Auto) % [place] % (Auto) % Eos % (Auto) % Baso % (Auto) % Immature Gran # (Auto) (0.00-0.02) K/uL Neut # (Auto) (1.4-6.5) K/uL Lymph # (Auto) (1.2-3.4) K/uL [place] # (Auto) (0.11-0.59) K/uL Eos # (Auto) (0-0.5) K/uL Baso # (Auto) (0-0.2) K/uL PT INR POC Sodium (135-144) mEq/L Sodium (136-145) mmol/L POC Potassium (3.3-5.0) mEq/L Potassium (3.5-5.1) mmol/L POC Chloride (101-112) mEq/L Chloride (98-107) mmol/L Carbon Dioxide (21-32) mmol/L POC Total CO2 (24-31) mEq/l Anion Gap (3-11) POC Anion Gap (16-25) mmol/L POC BUN (7-18) mg/dl BUN (7-18) mg/dl Creatinine (0.6-1.4) mg/dl POC Creatinine (0.6-1.3) mg/dl Est Cr Clr Drug Dosing ml/min Est GFR ( Amer) Est GFR (Non-Af Amer) BUN/Creatinine Ratio (10-20) Glucose (70-99) mg/dl POC Glucose (other) (70-99) mg/dl Calcium (8.5-10.1) mg/dl POC Ioniz Calcium Lily (1.12-1.32) mmol/l Magnesium 2.1 (1.8-2.4) mg/dl Total Bilirubin (0.2-1) mg/dl AST (15-37) U/L ALT (12-78) U/L Alkaline Phosphatase (45-117) U/L Total Protein (6.4-8.2) gm/dl Albumin (3.4-5.0) gm/dl Globulin (2.5-4.0) gm/dl Albumin/Globulin Ratio (0.9-2) Lipase (73-393) U/L Urine Color Dark Yellow Urine Appearance Cloudy A (Clear) Urine pH >= 9.0 H (4.5-7.5) Ur Specific [place] 1.025 (1.000-1.030) Urine Protein Negative (Negative) Urine Glucose (UA) Negative (Negative) Urine Ketones Negative (Negative) Urine Blood Negative (Negative) Urine Nitrite Negative (Negative) Urine Bilirubin Negative (Negative) Urine Urobilinogen Negative (Negative) Ur Leukocyte Esterase Negative (Negative) Urine WBC (Auto) 1-5 (0-5) /hpf Urine RBC (Auto) 0-4 (0-4) /hpf U Hyaline Cast (Auto) 1-5 (0-5) /lpf U Epithel Cells (Auto) 10-20 H (0-5) /lpf Urine Bacteria (Auto) Negative (Negative) Phenytoin 13.4 (10-20) mcg/ml 07/22/19 07/22/19 Range/Units 07:58 08:04 WBC (4.8-10.8) K/uL RBC (4.7-6.1) M/uL Hgb (14.0-18.0) g/dL POC Hgb 16.0 (14.0-18.0) g/dl Hct (42-52) % POC Hct 47 (42-52) % MCV (80-100) fL MCH (25-34) pg MCHC (32-36) g/dL RDW Std Deviation (36.4-46.3) fL RDW Coeff of Paul (11.5-14.5) % Plt Count (130-400) K/uL MPV (7.4-10.4) fL Immature Gran % (Auto) % Neut % (Auto) % Lymph % (Auto) % [place] % (Auto) % Eos % (Auto) % Baso % (Auto) % Immature Gran # (Auto) (0.00-0.02) K/uL Neut # (Auto) (1.4-6.5) K/uL Lymph # (Auto) (1.2-3.4) K/uL [place] # (Auto) (0.11-0.59) K/uL Eos # (Auto) (0-0.5) K/uL Baso # (Auto) (0-0.2) K/uL PT 28.8 H INR 3.0 H POC Sodium 137 (135-144) mEq/L Sodium (136-145) mmol/L POC Potassium 4.0 (3.3-5.0) mEq/L Potassium (3.5-5.1) mmol/L POC Chloride 101 (101-112) mEq/L Chloride (98-107) mmol/L Carbon Dioxide (21-32) mmol/L POC Total CO2 29 (24-31) mEq/l Anion Gap (3-11) POC Anion Gap 12.0 L (16-25) mmol/L POC BUN 14 (7-18) mg/dl BUN (7-18) mg/dl Creatinine (0.6-1.4) mg/dl POC Creatinine 1.0 (0.6-1.3) mg/dl Est Cr Clr Drug Dosing ml/min Est GFR ( Amer) Est GFR (Non-Af Amer) BUN/Creatinine Ratio (10-20) Glucose (70-99) mg/dl POC Glucose (other) 121 H (70-99) mg/dl Calcium (8.5-10.1) mg/dl POC Ioniz Calcium Lily 1.17 (1.12-1.32) mmol/l Magnesium (1.8-2.4) mg/dl Total Bilirubin (0.2-1) mg/dl AST (15-37) U/L ALT (12-78) U/L Alkaline Phosphatase (45-117) U/L Total Protein (6.4-8.2) gm/dl Albumin (3.4-5.0) gm/dl Globulin (2.5-4.0) gm/dl Albumin/Globulin Ratio (0.9-2) Lipase (73-393) U/L Urine Color Urine Appearance (Clear) Urine pH (4.5-7.5) Ur Specific [place] (1.000-1.030) Urine Protein (Negative) Urine Glucose (UA) (Negative) Urine Ketones (Negative) Urine Blood (Negative) Urine Nitrite (Negative) Urine Bilirubin (Negative) Urine Urobilinogen (Negative) Ur Leukocyte Esterase (Negative) Urine WBC (Auto) (0-5) /hpf Urine RBC (Auto) (0-4) /hpf U Hyaline Cast (Auto) (0-5) /lpf U Epithel Cells (Auto) (0-5) /lpf Urine Bacteria (Auto) (Negative) Phenytoin (10-20) mcg/ml Imaging Data Radiologist's Impression: Radiology results as stated below per my review and the radiologist's interpretation: ABDOMEN AND PELVIS CT WITH IV CONTRAST CT DOSE: 1137.00 mGycm HISTORY: Acute epigastric abdominal pain Pt c/o epigastric pain TECHNIQUE: Multiaxial CT images of the abdomen and pelvis were performed following the IV administration of 94 cc of Optiray 320, A dose lowering technique was utilized adhering to the principles of ALARA. COMPARISON STUDY: CT lumbar spine 09/02/2018 FINDINGS: Right hemidiaphragmatic elevation. Mild bibasilar opacities suggest atelectasis. There is no pneumatosis or pneumoperitoneum. The imaged inferior cardiac elisabeth bers are unremarkable with coronary arterial calcifications. Trace pericardial effusion. Gallbladder, spleen, liver, pancreas and adrenal glands appear unremarkable. Renal sinus cysts are present bilaterally. There are a few subcentimeter cortical hypodense lesions of the kidneys which are too small to characterize. Possible punctate calculus of the superior pole left kidney. No ureteral calculi or obstructive uropathy. Decompressed urinary bladder. Small fat filled bilateral inguinal hernias. Calcified plaque of the abdominal aorta without aneurysm. There is no adenopathy. . Fluid-filled distended stomach. Dilated fluid-filled duodenum and proximal jejunum with fat fluid levels. Dilated bowel measures up to 4.1 cm transversely. Mild interloop edema with mild reactive trace free fluid. Stool-filled loops of small bowel of the anterior central and lower abdomen with a focal transition po int noted on image 303 of series 3 in the lower central abdomen, likely secondary to small bowel adhesions with angular decompressed loops seen distally to this area. Large bowel is decompressed. Mild colonic diverticulosis without acute diverticulitis. Normal appendix and terminal ileum. Small fat filled periumbilical hernia. Bones appear to be intact. Degenerative changes of the spine, pelvis and hips. Remote fracture of the posterior right 11th rib. Remote bilateral L5 pars defects with grade 1 anterolisthesis L5 on S1. IMPRESSION: 1. Small bowel obstruction appears to be high-grade and is likely secondary to adhesions with transition point within the right paracentral mid to lower lower abdomen. 2. No pneumatosis or pneumoperitoneum. 3. Normal appendix. 4. Additional findings as above. Electronically signed by: José Luis Martinez M.D. 07/22/2019 7:53 AM Blood Pressure Blood Pressure Findings: Elevated blood pressure Blood Pressure Disposition: further management by hospitalist MDM Narrative This is a 63-year-old male who presents emergency department complaining of abdominal pain. Patient presents the emergency department with a bloated stomach. Using shared medical decision-making with the patient and his patient was sent for CAT scan the abdomen pelvis. This is concerning for small bowel obstruction. He does not have an elevation in his white blood cell count the patient is on Coumadin and his INR was found to be 3.0. I did discuss case with the hospitalist service as well as the surgical service. Patient was admitted to the hospitalist service. Impression & Plan Abdominal pain, SBO (small bowel obstruction) Discharge Plan Visit Data *Final* Discharge Date/Time: 07/22/19 09:16 Chief Complaint: Abdominal Pain Stated Complaint: STOMACH PAINS-FEELING SICK ED Provider: Unruly Blackwell Discharge Problem: Abdominal pain, SBO (small bowel obstruction) Patient Disposition: Admitted As Inpatient Discharge Instructions Interventions: ED Discharge Assessment Last Done: 07/22/19 09:16 The aronibe's documentation has been prepared under my direction and personally reviewed by me in its entirety. I confirm that the note above accurately r eflects all work, treatment, procedures, and medical decision making performed by me.
[2019-07-23] MEDS: D5NSS + 20MEQ KCL 20 MEQ/1,000 ML BAG IV SCH ×3 (04:43→20:29)
[2019-07-23 06:51] LABS: Basophils # (auto) 0.01 K/uL (0-0.2); Basophils % (auto) 0.1 %; Eosinophils # (auto) 0.19 K/uL (0-0.5); Eosinophils % (auto) 2.3 %; Hematocrit (blood only) 41.2 % (42-52); Hemoglobin 14.4 g/dL (14.0-18.0); Immature Granulocytes # (auto) 0.01 K/uL (0.00-0.02); Immature Granulocytes % (auto) 0.1 %; Lymphocytes # (auto) 0.79 K/uL (1.2-3.4); Lymphocytes % (auto) 9.7 %; Mean Corpuscular Hemoglobin 34.3 pg (25-34); Mean Corpuscular Volume 98.1 fL (80-100); Mean Platelet Volume 8.9 fL (7.4-10.4); Monocytes # (auto) 0.78 K/uL (0.11-0.59); Monocytes % (auto) 9.6 %; Neutrophils # (auto) 6.36 K/uL (1.4-6.5); Neutrophils % (auto) 78.2 %; Platelet Count 169 K/uL (130-400); RDW Coefficient of Variation 14.1 % (11.5-14.5); RDW Standard Deviation 50.2 fL (36.4-46.3); White Blood Count 8.14 K/uL (4.8-10.8)
[2019-07-23 07:07] LABS: INR 2.9 (0.9-1.1)
[2019-07-23 07:29] LABS: BUN Creatinine Ratio 9.4 (10-20); Calcium 8.4 mg/dl (8.5-10.1); Creatinine Clr Calc Pharmacy 100.6 ml/min; Est GFR (African American) 101.6; Est GFR (Non-African American) 87.7; Potassium 4.2 mmol/L (3.5-5.1)
--- NOTE | 2019-07-23 09:02 | Surgery Progress Note ---
Date of Service July 23, 2019 Assessment & Plan (1) SBO (small bowel obstruction): 63 year-old male with history of SBO in past treated conservatively without an abdominal surgical history presented to ED with complaint of abdominal pain, bloating and nausea. CT scan concerning for high grade SBO with transition point. No leukocytosis. Resolving -+ bowel function - resolution of pain, n/v Plan: Given recurrent episodes of SBO without abdominal surgical history concern for the cause of SBO. Could have adhesions but would want to rule out intra-luminal mass or stricture. He should have MRE or small bowel follow through to further evaluate small bowel once through this acute phase. Highly encouraged patient to consider screening colonoscopy as an outpatient for colorectal screening Advance diet to full liquids Continue IV fluids Continue medical management Dr. Em has seen and examined pt, agrees with above. Subjective feeling good no abdominal pain no n/v liquid bowel movements ready to go home Physical Exam Constitutional: WD/WN, vitals as above no acute distress Gastrointestinal (Abdomen): Inspection/Auscultation: abdomen normal to inspection and normal bowel sounds; abdomen not distended Percussion/Palpation: abdomen soft; abdomen nontender, no guarding and abdomen not rigid Skin: no rashes, warm and dry Psychiatric: A+Ox3, euthymic affect Results & Data Vital Signs (Past 12 Hours) Vital Signs Temp Pulse Resp BP Pulse Ox 07/23/19 06:47 37 C 83 22 135/83 92 07/23/19 03:54 36.5 C 86 22 127/82 93 07/22/19 23:15 36.4 C L 83 20 151/99 H 96 Laboratory Results 07/23/19 07/23/19 07/23/19 Range/Units 06:39 06:39 06:39 WBC 8.14 (4.8-10.8) K/uL RBC 4.20 L (4.7-6.1) M/uL Hgb 14.4 (14.0-18.0) g/dL POC Hgb (14.0-18.0) g/dl Hct 41.2 L (42-52) % POC Hct (42-52) % MCV 98.1 (80-100) fL MCH 34.3 H (25-34) pg MCHC 35.0 (32-36) g/dL RDW Std Deviation 50.2 H (36.4-46.3) fL RDW Coeff of Paul 14.1 (11.5-14.5) % Plt Count 169 (130-400) K/uL MPV 8.9 (7.4-10.4) fL Immature Gran % (Auto) 0.1 % Neut % (Auto) 78.2 % Lymph % (Auto) 9.7 % [place] % (Auto) 9.6 % Eos % (Auto) 2.3 % Baso % (Auto) 0.1 % Immature Gran # (Auto) 0.01 (0.00-0.02) K/uL Neut # (Auto) 6.36 (1.4-6.5) K/uL Lymph # (Auto) 0.79 L (1.2-3.4) K/uL [place] # (Auto) 0.78 H (0.11-0.59) K/uL Eos # (Auto) 0.19 (0-0.5) K/uL Baso # (Auto) 0.01 (0-0.2) K/uL PT 28.0 H (9.0-12.0) Seconds INR 2.9 H (0.9-1.1) POC Sodium (135-144) mEq/L Sodium 139 (136-145) mmol/L POC Potassium (3.3-5.0) mEq/L Potassium 4.2 (3.5-5.1) mmol/L POC Chloride (101-112) mEq/L Chloride 109 H (98-107) mmol/L Carbon Dioxide 24 (21-32) mmol/L POC Total CO2 (24-31) mEq/l Anion Gap 6.0 (3-11) POC Anion Gap (16-25) mmol/L POC BUN (7-18) mg/dl BUN 9 D (7-18) mg/dl Creatinine 0.93 (0.6-1.4) mg/dl POC Creatinine (0.6-1.3) mg/dl Est Cr Clr Drug Dosing 100.6 ml/min Est GFR ( Amer) 101.6 Est GFR (Non-Af Amer) 87.7 BUN/Creatinine Ratio 9.4 L (10-20) Glucose 101 H (70-99) mg/dl POC Glucose (other) (70-99) mg/dl Calcium 8.4 L (8.5-10.1) mg/dl POC Ioniz Calcium Lily (1.12-1.32) mmol/l Magnesium (1.8-2.4) mg/dl 07/22/19 07/22/19 Range/Units 07:58 06:53 WBC (4.8-10.8) K/uL RBC (4.7-6.1) M/uL Hgb (14.0-18.0) g/dL POC Hgb 16.0 (14.0-18.0) g/dl Hct (42-52) % POC Hct 47 (42-52) % MCV (80-100) fL MCH (25-34) pg MCHC (32-36) g/dL RDW Std Deviation (36.4-46.3) fL RDW Coeff of Paul (11.5-14.5) % Plt Count (130-400) K/uL MPV (7.4-10.4) fL Immature Gran % (Auto) % Neut % (Auto) % Lymph % (Auto) % [place] % (Auto) % Eos % (Auto) % Baso % (Auto) % Immature Gran # (Auto) (0.00-0.02) K/uL Neut # (Auto) (1.4-6.5) K/uL Lymph # (Auto) (1.2-3.4) K/uL [place] # (Auto) (0.11-0.59) K/uL Eos # (Auto) (0-0.5) K/uL Baso # (Auto) (0-0.2) K/uL PT (9.0-12.0) Seconds INR (0.9-1.1) POC Sodium 137 (135-144) mEq/L Sodium (136-145) mmol/L POC Potassium 4.0 (3.3-5.0) mEq/L Potassium (3.5-5.1) mmol/L POC Chloride 101 (101-112) mEq/L Chloride (98-107) mmol/L Carbon Dioxide (21-32) mmol/L POC Total CO2 29 (24-31) mEq/l Anion Gap (3-11) POC Anion Gap 12.0 L (16-25) mmol/L POC BUN 14 (7-18) mg/dl BUN (7-18) mg/dl Creatinine (0.6-1.4) mg/dl POC Creatinine 1.0 (0.6-1.3) mg/dl Est Cr Clr Drug Dosing ml/min Est GFR ( Amer) Est GFR (Non-Af Amer) BUN/Creatinine Ratio (10-20) Glucose (70-99) mg/dl POC Glucose (other) 121 H (70-99) mg/dl Calcium (8.5-10.1) mg/dl POC Ioniz Calcium Lily 1.17 (1.12-1.32) mmol/l Magnesium 2.1 (1.8-2.4) mg/dl
[2019-07-23] MEDS: AMPICILLIN 500 MG in SODIUM CHLORIDE 0.9% 50 ML IV SCH (09:03)
[2019-07-23] MEDS: lamoTRIgine 100 MG TAB PO SCH ×2 (09:03→19:44)
[2019-07-23] MEDS: lamoTRIgine 25 MG TAB PO SCH ×2 (09:03→19:45)
[2019-07-23] MEDS: PHENYTOIN 200 MG in SYRINGE 0 ML IV SCH ×2 (09:04→19:43)
[2019-07-23] MEDS: SODIUM CHLORIDE 0.9% 10ML FLUSH IV SCH ×2 (09:04→19:43)
--- NOTE | 2019-07-23 15:18 | Hospitalist Progress Note ---
Date of Service July 23, 2019 Assessment & Plan (1) SBO (small bowel obstruction): High-grade small bowel obstruction with unknown etiology, will treat conservatively at this point per surgery with IV fluids and advancing diet to full liquids. They also recommended to ED for small bowel follow-through after the acute phase. Continue pain management IV pain meds and anti-emetics IV H2 beni while NPO We will repeat KUB in a.m. (2) Seizure disorder: Last seizure ~1 month ago. Cont dilantin - give IV 200mg BID. Cont lamictal 250mg BID - no IV formulation - give PO w/ sip of water. Place on telemetry. (3) History of meningitis: Recurrent. Takes amox for prophylaxis. Change amoxicillin to ampicillin 500mg once daily IV. (4) Chronic anticoagulation: coumadin, for prior LLE DVT. HOLD coumadin for now in the event he needs surgical intervention for SBO. DVT prophylaxis with SCDs and teds Once INR is <2 consider heparin bridge. Daily INR while hospitalized. 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 See above in "chronic anticoagulation." (6) Hemiparesis of left nondominant side: 2nd to prior intra-cranial surgery performed in 2006. 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 (7) DVT prophylaxis: See above Subjective Seen and examined at the bedside. Patient has small bowel obstruction which per surgery surgery recommendation will be treated conservatively CT scan is concerning for high-grade small bowel obstruction with transition point no leukocytosis. Patient has recurrent episodes of small bowel obstruction without abdominal surgical history which could be concerning for cause of small bowel obstruction. Could be adhesions but it has to be ruled out intraluminal mass or stricture. Surgery recommended to have MRSE or small bowel follow through to further evaluate small bowel once through this acute phase. They also recommend ed patient to have screening colonoscopy as an outpatient for colorectal screening. They recommended to advance diet to full liquids. Continue IV fluids and continue supportive medical management. Patient denies fever, chills, chest pain, shortness of breath has mild abdominal pain. Patient denies diarrhea nausea or vomiting. Review of Systems Review of Systems: All systems reviewed & are unremarkable except as noted in HPI & below Physical Exam Constitutional: WD/WN, vitals as above well developed and + obese Eyes: PERRL, conjunctivae normal, anicteric sclerae ENMT: external ear and nose normal, oropharynx normal Neck: trachea midline, no thyromegaly Respiratory: normal respiratory effort, lungs clear to auscultation Cardiovascular: RRR, no murmur, no edema Gastrointestinal (Abdomen): normal bowel sounds, soft, nontender, no hepatosplenomegaly Musculoskeletal: no cyanosis or clubbing, extremities motor strength 5/5 Skin: no rashes, warm and dry Neurologic: patellar DTR's 2+ bilat, sensation intact Psychiatric: A+Ox3, euthymic affect Lymphatic: no cervical or axillary lymphadenopathy Results & Data Vital Signs (Past 12 Hours) Vital Signs Temp Pulse Pulse Resp BP Pulse Ox 07/23/19 14:52 105 H 07/23/19 11:49 37.2 C 88 18 140/89 93 07/23/19 08:00 84 07/23/19 06:47 37 C 83 22 135/83 92 07/23/19 03:54 36.5 C 86 22 127/82 93 PG Care Time/CCT Total # of Minutes Spent Total Time Spent with Patient: Total time spent is greater than 50% in coordination of care (as documented) at patient's floor/unit and/or counseling patient: (1) Hemiparesis of left nondominant side Hemiparesis etiology: non-cerebrovascular etiology Qualified Code(s): G81.94 - Hemiplegia, unspecified affecting left nondominant side
[2019-07-23] MEDS: SODIUM CHLORIDE 0.9% 1000ML 1,000 ML IV SCH (21:26)
[2019-07-23] MEDS: ACETAMINOPHEN 500 MG TAB PO PRN (22:02)
[2019-07-24 07:12] LABS: Basophils # (auto) 0.01 K/uL (0-0.2); Basophils % (auto) 0.1 %; Eosinophils # (auto) 0.17 K/uL (0-0.5); Eosinophils % (auto) 1.9 %; Hematocrit (blood only) 40.7 % (42-52); Hemoglobin 14.1 g/dL (14.0-18.0); Immature Granulocytes # (auto) 0.03 K/uL (0.00-0.02); Immature Granulocytes % (auto) 0.3 %; Lymphocytes # (auto) 0.82 K/uL (1.2-3.4); Lymphocytes % (auto) 9.2 %; Mean Corpuscular Hemoglobin 34.2 pg (25-34); Mean Corpuscular Hgb Conc 34.6 g/dL (32-36); Mean Corpuscular Volume 98.8 fL (80-100); Mean Platelet Volume 9.1 fL (7.4-10.4); Monocytes # (auto) 0.74 K/uL (0.11-0.59); Monocytes % (auto) 8.3 %; Neutrophils # (auto) 7.19 K/uL (1.4-6.5); Neutrophils % (auto) 80.2 %; Platelet Count 164 K/uL (130-400); RDW Coefficient of Variation 13.9 % (11.5-14.5); Red Blood Count 4.12 M/uL (4.7-6.1); White Blood Count 8.96 K/uL (4.8-10.8)
[2019-07-24 07:21] LABS: INR 2.2 (0.9-1.1); Prothrombin Time 21.7 Seconds (9.0-12.0)
[2019-07-24 07:38] LABS: Albumin Level 3.6 gm/dl (3.4-5.0); BUN Creatinine Ratio 8.1 (10-20); Calcium 8.7 mg/dl (8.5-10.1); Creatinine Clr Calc Pharmacy 100.6 ml/min; Est GFR (African American) 101.6; Est GFR (Non-African American) 87.7
[2019-07-24 07:40] LABS: Bilirubin,Total 0.7 mg/dl (0.2-1); Globulin 3.7 gm/dl (2.5-4.0); Total Protein 7.3 gm/dl (6.4-8.2)
--- NOTE | 2019-07-24 08:47 | XRay Report ---
XR KUB/Abdomen 1 view CLINICAL HISTORY: 63 years-old Male presenting with SBO. TECHNIQUE: Single supine view of the abdomen was obtained. COMPARISON: CT from 07/22/2019 and plain radiograph from 04/01/2018. FINDINGS: Persistent gaseous distention of small bowel. There is also suggestion of small bowel wall thickening . An apparent diameter of 4.6 cm for small bowel in the central abdomen may be affected by magnificat ion. No gross pneumoperitoneum or pneumatosis. Allowing for bowel gas and stool, no calcifications to suggest nephrolithiasis. Degenerative changes of the spine. Lung bases clear. IMPRESSION: 1. Persistent gaseous distention of small bowel compatible with obstruction. 2. Apparent small bowel wall thickening could relate to worsening small bowel lymphovascular obstruc tion/edema in the setting of the small bowel obstruction or superimposed enteritis. No radiographic e vidence of pneumatosis. Correlate for symptomatology regarding concern for developing ischemia. Electronically signed by: Jose Bah M.D. 07/24/2019 8:46 AM
--- NOTE | 2019-07-24 08:50 | Surgery Progress Note ---
Date of Service July 24, 2019 Assessment & Plan (1) Abdominal pain: Small bowel obstruction resolving Tolerated full liquids well can advance to soft diet No evidence of peritonitis Abdominal x-ray shows most of small bowel decompressed Consider MRE and encouraged colonoscopy, both can be done as as outpatient Subjective Feeling much better today Denies abdominal pain Having multiple bowel movements They are more liquid Passing flatus Denies nausea and vomiting Tolerated full liquid diet Physical Exam Gastrointestinal (Abdomen): Inspection/Auscultation: normal bowel sounds; abdomen not distended Percussion/Palpation: abdomen soft; abdomen nontender Results & Data Vital Signs (Past 12 Hours) Vital Signs Temp Pulse Pulse Resp BP Pulse Ox 07/24/19 08:06 83 07/24/19 08:03 36.6 C 85 18 143/90 H 95 07/24/19 04:55 36.8 C 83 20 143/92 H 96 07/23/19 23:23 36.9 C 80 18 127/77 96 (1) Abdominal pain Abdominal location: unspecified location Qualified Code(s): R10.9 - Unspecified abdominal pain
[2019-07-24] MEDS: AMPICILLIN 500 MG in SODIUM CHLORIDE 0.9% 50 ML IV SCH (09:11)
[2019-07-24] MEDS: SODIUM CHLORIDE 0.9% 10ML FLUSH IV SCH (09:12)
[2019-07-24] MEDS: lamoTRIgine 25 MG TAB PO SCH (09:12)
[2019-07-24] MEDS: lamoTRIgine 100 MG TAB PO SCH (09:12)
[2019-07-24] MEDS: PHENYTOIN 200 MG in SYRINGE 0 ML IV SCH (09:12)
[2019-07-24] MEDS: SODIUM CHLORIDE 0.9% 1000ML 1,000 ML IV SCH (10:02)
--- NOTE | 2019-07-24 13:38 | Hospitalist Progress Note ---
Date of Service July 24, 2019 Assessment & Plan (1) SBO (small bowel obstruction): Patient states that he feels much better and he wants to be discharged home. He stated that he tolerated all his breakfast which was a GI soft diet this morning. He reports no abdominal pain or nausea or vomiting whatsoever. Patient was advised to have MRE for high high-grade small bowel obstruction with unknown etiology. He also was recommended to have colonoscopy. Patient is scheduled to have appointment with entry operator in 1 to 2 weeks as an outpatient Patient did not request any pain management today. (2) Seizure disorder: Last seizure ~1 month ago. Cont dilantin - give IV 200mg BID. Cont lamictal 250mg BID - Place on telemetry. (3) History of meningitis: Recurrent. Takes amox for prophylaxis. Change amoxicillin to ampicillin 500mg once daily IV. (4) Chronic anticoagulation: coumadin, for prior LLE DVT. Restarted Coumadin prior to discharge. INR 2.2 DVT prophylaxis with SCDs and teds Once INR is <2 consider heparin bridge. 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 See above in "chronic anticoagulation." (6) Hemiparesis of left nondominant side: 2nd to prior intra-cranial surgery performed in 2006. 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 (7) DVT prophylaxis: See above Subjective Seen and examined at the bedside. Patient states that he feels much better today and he tolerated all his breakfast soft GI. He said he had several bowel movements overnight. Patient denies abdominal pain. Patient denies fever, chills, nausea, no vomiting, chest pain, shortness of breath, abdominal pain, frequency, urgency. At this point patient bowel is loose. Patient reports he did not see any blood in there. He stated that he wants to be discharged home. He also stated that he does not want colonoscopy to be done. We deferred that decision to him and his when they go home. Review of Systems Eyes: + loss of peripheral vision (left visual field - chronic ) Ear, Nose, Mouth, Throat: + dysphagia (chronic) Neurologic: + localized weakness (left arm/left leg - chronic ) Endocrine: no diabetes Physical Exam Constitutional: WD/WN, vitals as above well developed and + obese Eyes: PERRL, conjunctivae normal, anicteric sclerae ENMT: external ear and nose normal, oropharynx normal Neck: trachea midline, no thyromegaly Respiratory: normal respiratory effort, lungs clear to auscultation Cardiovascular: RRR, no murmur, no edema Gastrointestinal (Abdomen): normal bowel sounds, soft, nontender, no hepatosplenomegaly Musculoskeletal: no cyanosis or clubbing, extremities motor strength 5/5 Skin: no rashes, warm and dry Neurologic: patellar DTR's 2+ bilat, sensation intact Psychiatric: A+Ox3, euthymic affect Lymphatic: no cervical or axillary lymphadenopathy Results & Data Vital Signs (Past 12 Hours) Vital Signs Temp Pulse Pulse Resp BP Pulse Ox 07/24/19 12:00 36.5 C 83 142/93 H 92 07/24/19 08:06 83 07/24/19 08:03 36.6 C 85 18 143/90 H 95 07/24/19 04:55 36.8 C 83 20 143/92 H 96 PG Care Time/CCT Total # of Minutes Spent Total Time Spent with Patient: Total time spent is greater than 50% in coordination of care (as documented) at patient's floor/unit and/or counseling patient: (1) Hemiparesis of left nondominant side Hemiparesis etiology: non-cerebrovascular etiology Qualified Code(s): G81.94 - Hemiplegia, unspecified affecting left nondominant side
--- NOTE | 2019-07-24 16:41 | Discharge Summary ---
Date of Service July 24, 2019 Admission HPI Per Admitting Provider 63yo male with history of glioblastoma multiforme with original resection in 2003 at [facility], followed by repeat surgery in 2006 at [facility] (ultimately there was no recurrent cancer just scar tissue and a "bloot clot" per ), along with seizure disorder and LLE DVT in 2019 who presents with nausea, abdominal bloating, and abdominal pain. Over the weekend the patient's states he looked bloated to her. Then, on Monday am, he complained of upper abdominal pain after eating a bowl of cereal. The pain resolved as the day went on, but after eating dinner, the abdominal pain returned. The pain got quite severe in the middle of the night prompting a visit to our ER. He had not vomited until attempts at NG tube placement occurred in our ER. NG tube placement was not successful. CT abd/pelvis revealed a high-grade SBO. He has had SBO on at least 2 prior occasions with 1 of them requiring NG tube placement. Both episodes resolved without surgery. He has NEVER had intra-abdominal surgery in the past. Last bowel movement and flatus was yesterday am following breakfast. Principal Diagnosis none Discharge Exam Constitutional WD/WN, vitals as above well developed and + obese Eyes PERRL, conjunctivae normal, anicteric sclerae ENMT external ear and nose normal, oropharynx normal Neck trachea midline, no thyromegaly Respiratory normal respiratory effort, lungs clear to auscultation Cardiovascular RRR, no murmur, no edema Gastrointestinal (Abdomen) normal bowel sounds, soft, nontender, no hepatosplenomegaly Musculoskeletal no cyanosis or clubbing, extremities motor strength 5/5 Skin no rashes, warm and dry Neurologic patellar DTR's 2+ bilat, sensation intact Psychiatric A+Ox3, euthymic affect Lymphatic no cervical or axillary lymphadenopathy Discharge Data Allergies Allergy/AdvReac Type Severity Reaction Status Date / Time No Known Allergies Allergy ` Verified 07/22/19 07:22 Consultations 07/22/19 08:01 Consult General Surgery Stat 07/22/19 08:14 ED Decision to Admit Stat Ordered Studies 07/22/19 06:42 CT abd pelvis IV con only Stat Hospital Course (1) SBO (small bowel obstruction): Patient states that he feels much better and he wants to be discharged home. He stated that he tolerated all his breakfast which was a GI soft diet this morning. He reports no abdominal pain or nausea or vomiting whatsoever. Patient was advised to have MRE for high high-grade small bowel obstruction with unknown etiology. He also was recommended to have colonoscopy. Patient is scheduled to have appointment with ip counsel in 1 to 2 weeks as an outpatient Patient did not request any pain management today. (2) Seizure disorder: Last seizure ~1 month ago. Cont dilantin - give IV 200mg BID. Cont lamictal 250mg BID - Place on telemetry. (3) History of meningitis: Recurrent. Takes amox for prophylaxis. Change amoxicillin to ampicillin 500mg once daily IV. (4) Chronic anticoagulation: coumadin, for prior LLE DVT. Restarted Coumadin prior to discharge. INR 2.2 DVT prophylaxis with SCDs and teds Once INR is <2 consider heparin bridge. 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 See above in "chronic anticoagulation." (6) Hemiparesis of left nondominant side: 2nd to prior intra-cranial surgery performed in 2006. 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 (7) DVT prophylaxis: See above Total Time Total Time Spent Total Time Spent (In Minutes): over 30 min Discharge Plan Discharge Items Patient Disposition: Home - Self-Care Reason For Visit: SBO Discharge Diagnosis: small bowel obstruction Condition on Discharge: Good Health Concerns: compliance Activity: As commented below Activity Comment: compliance Lifting: Gradually increase as tolerated Non-emergency contact: Primary Care Provider and Mechanical Developer [employer] Call non-emergency contact if: you have any medication questions, your symptoms worsen, your pain is not controlled, your pain is worsening, your pain is unusual for you, your pain is concerning for you, you have a fever, your temperature is above 101 and your temperature is above 101.5 Follow-up/Referrals: Kvng Allison MD [Primary Care Provider] - 07/30/19 8:00 am (Please, follow up at [facility] with Dr. Allison on MondayJuly 30 at 8:00 am. *If you need to change this appointment, call the office at [phone].) Redd Leon MD [Physician] - 08/01/19 1:45 pm (Please, follow up at [facility] with Dr. Leon on August 01 at 1:45 pm. *The office is located at [address] [place] [address] in [facility]). If you need to change this appointment, call the office at [phone].) Diet: Low Fiber Addtl Attending Provider Instructions: The ip counsel will call you to schedule appointment for MRE or small bowel follow through and colonoscopy. Please follow up with your PCP in 7 days. Pending Studies at Discharge: No Stand-Alone Forms: Call Back Authorization, [facility], Smoking Cessation Medications and DC Order Prescriptions: Continued lamotrigine 200 mg tablet 200 mg PO BID Qty: 60 RF: 5 lamotrigine 25 mg tablet 50 mg PO BID Qty: 120 RF: 5 lorazepam 0.5 mg Tablet 1 mg PO DAILY PRN (Reason: Seizures) RF: 0 warfarin [Coumadin] 5 mg tablet 5 mg PO DAILY@1600 RF: 0 amoxicillin 500 mg capsule 500 mg PO DAILY@1600 RF: 0 phenytoin sodium extended 100 mg capsule 200 mg PO QAM RF: 0 phenytoin sodium extended 100 mg capsule 200 mg PO HS RF: 0 Discharge Orders: Discharge Order (Routine); Ordered 07/24/19 Ordered By: Bertin Marroquin Admission Data Admit Date/Time: 07/22/19 08:50 Attending Provider: Bertin Marroquin Admit Provider: Joel Wells Primary Care Provider: Kvng Allison Other Providers: Hussain Em ; Joel Wells Other Interventions: Discharge Summary Assessment (RN) Last Done: 07/24/19 14:18
== END 2019-07-24 17:02 | disposition home or self-care (01) | DRG 389 ==
LOC: ED 06:23 → 2S 08:50 → SUATTDRO 08:50 → 2S 09:16

== ENCOUNTER 2020-07-23 11:18 | Inpatient (IN) ==
[2020-07-23] MEDS ORDERED: ONDANSETRON INJ 2 MG/ML 2 ML VIAL IV STA (11:47)
--- NOTE | 2020-07-23 11:55 | Emergency Department Note ---
Impression & Plan Subcapital fracture of left hip, Fall ED Provider Note NAME: MICHELLE BHAKTA AGE: 64 SEX: M : 1955 ARRIVES VIA: Ambulance INFORMANT: Patient, the patient's family member ED PROVIDER(S): Toan Unger DO CHIEF COMPLAINT: Fall HPI: The patient is a 64-year-old male who presented to the emergency department for an evaluation of left hip pain. The patient had a ground-level fall onto concrete. He struck his left hip. He has had very significant pain with any range of motion of the left hip. He was unable to ambulate. 911 was called the patient arrived the ambulance. The patient does take oral anticoagulation. He has a history of left-sided weakness because of previous brain tumor. He did not strike his head. He denies having any neck pain back pain or loss of consciousness. He states he has very severe pain with any movement of his left leg. The patient has never injured this hip before. He denies having any nausea or vomiting. The patient states that he has been compliant with his outpatient medication regimen. The patient states his pain is moderate to severe with any movement of his hip. The pain is mildly improved with remaining still. ROS: See above HPI for pertinent positives & negatives. A total of 10 systems reviewed and were otherwise negative. PAST MEDICAL HISTORY: See Below PAST SURGICAL HISTORY: See Below FAMILY HISTORY: See Below SOCIAL HISTORY: See Below HOME MEDICATIONS: See Below ALLERGIES: See Below VITALS: See Below PHYSICAL EXAMINATION: GENERAL: Patient is awake alert in no acute distress patient is resting comfortably and showing no signs of anxiety EYES: The conjunctivae are clear. The pupils are round and reactive. EARS, NOSE, MOUTH AND THROAT: The nose is without any evidence of any deformity. NECK: The neck is nontender and supple. RESPIRATORY: Normal respiratory effort is noted there is no evidence of wheezing rhonchi or rales CARDIOVASCULAR: Regular rate and rhythm noted there no murmurs rubs or gallops normal S1 normal S2. GASTROINTESTINAL: The abdomen is soft. Abdomen is nontender. BACK: No midline tenderness or or step-off noted range of motion in flexion extension as well as rotation no signs of muscle spasm noted MUSCULOSKELETAL/EXTREMITIES: Left hip is held in flexion with internal rotation. There is significant pain with any range of motion testing of the left hip. There is no pain from the knee distally. SKIN: Pedal edema was noted bilaterally. Skin was warm and dry NEUROLOGIC: Patient is awake alert and oriented x3 MEDICAL DECISION MAKING: The patient is a 64-year-old male who presented to the emergency department after a fall. The patient presented by ambulance with severe left hip pain. The patient was found to have a displaced subcapital left hip fracture on x-ray. The patient was treated with IV pain medication in the emergency department. I discussed the patient's laboratory and radiographic studies with him and his family member. I also [facility]. [facility] have agreed to evaluate the patient in the emergency department for further management and disposition. Triage Nursing notes reviewed. Prior medical records reviewed Vital Signs: reviewed and remarkable for elevated blood pressure and tachycardia. Differential diagnosis: Fracture, subluxation, dislocation, contusion, ligamentous injury, neurovascular, compartment syndrome, rhabdomyolysis, as well as other pathologies. ER treatment provided: See below Diagnostics interpreted by me: ECG: EKG was obtained in the emergency department. My interpretation is normal sinus rhythm at 90 bpm. PVCs were noted. Early transition was also noted. There was no acute ST segment elevations noted. This was compared to a tracing from January 202019. No significant changes were noted. Cardiac Monitoring: An order was placed for continuous cardiac monitoring. The monitor shows a rate of 99 beats per minute with sinus rhythm. Laboratory studies: As stated above and show below. Imaging studies: See below Consultation(s): 1300: I discussed his case with Greg who was covering [facility]. 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 Small bowel obstruction Surgical History H/O cataract removal with insertion of prosthetic lens H/O shoulder surgery Hx of brain surgery 2003 initial resection for GBM at [facility]; 2006 - 2nd surgery, this time at [facility], ultimately was discovered to have blood clot & scar tissue rather than recurrent cancer Family History Father CHF (congestive heart failure) Myocardial infarction Denies family history of Brain tumor Ovarian cancer Prostate cancer Breast cancer SBO (small bowel obstruction) Colorectal cancer Social History Smoking Status: Never smoker Second Hand Exposure: No; Do You Dip or Chew Tobacco: No; Tobacco Cessation Education Requested by Patient: No Hx Alcohol Use: No Hx Substance Use: No Preferred Language: Dominican Communication Ability: Effective Supervisor Pre Wave Required: No Beliefs That Will Affect Care: None marital status: Current Living Situation: Spouse Current Living Situation Comment: lives in [facility]; 2 children 1st marriage; 2 children 2nd marriage current occupational status: retired Other Information That Helps Us Care for You: 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 Feels Safe at Home: Yes Safety Concerns: Feels Safe At This Time caffeine: No Dental Care, Regularly: Yes Physical Activity Frequency: Does not Exercise Seatbelt Use: never Sunscreen Use: No Assistive Devices: Glasses Allergies Allergies Allergy/AdvReac Type Severity Reaction Status Date / Time No Known Allergies Allergy ` Verified 07/23/20 13:35 Home Meds Previous Rx's Medication Instructions Recorded amoxicillin 500 mg capsule 500 mg PO DAILY@1600 #30 cap 09/02/19 lorazepam 1 mg tablet 1 mg PO DAILY PRN 30 Days #30 tab 09/23/19 lamotrigine 200 mg tablet 200 mg PO BID #60 tab 12/24/19 phenytoin sodium extended 100 mg 200 mg PO BID 30 Days #120 cap 02/24/20 capsule warfarin 5 mg tablet 5 mg PO .COMPLEX #90 tab 05/26/20 lamotrigine 25 mg tablet 50 mg PO BID #120 tab 06/24/20 atorvastatin 20 mg tablet 20 mg PO DAILY #30 tab 07/03/20 Results & Data (ED) Vital Signs Vital Signs - 24 hr 07/23/20 11:55 07/23/20 12:33 Temperature 36.8 C Temperature Source Oral Pulse Rate 86 Pulse Rate [Left] 89 89 Respiratory Rate 20 16 Respiratory Effort / Characteristics Spontaneous Respiratory Depth Normal Blood Pressure 152/110 H Blood Pressure [Left Arm] 151/105 H 144/99 H Blood Pressure Mean 124 Blood Pressure Mean [Left Arm] 120 114 Blood Pressure Position Lying Blood Pressure Position [Left Arm] Lying Lying Pulse Oximetry 94 97 Oxygen Delivery Method Room Air Nasal Cannula Oxygen Flow Rate 3 Sepsis Recent Fever Within 48 Hours No Sepsis New/Unexplained Change in Mental Status No Sepsis Action Taken by Nursing No Action Required Home Medications Current Medication List: was personally reviewed by me Laboratory Data Attestation: I reviewed the patient's lab results. Result diagrams: 07/23/20 11:55 07/23/20 11:55 Lab Results 07/23/20 07/23/20 07/23/20 Range/Units 11:55 11:55 11:55 WBC 10.95 H (4.8-10.8) K/uL RBC 4.47 L (4.7-6.1) M/uL Hgb 15.1 (14.0-18.0) g/dL Hct 44.2 (42-52) % MCV 98.9 (80-100) fL MCH 33.8 (25-34) pg MCHC 34.2 (32-36) g/dL RDW Std Deviation 48.3 H (36.4-46.3) fL RDW Coeff of Paul 13.3 (11.5-14.5) % Plt Count 195 (130-400) K/uL MPV 9.6 (7.4-10.4) fL Immature Gran % (Auto) 0.5 % Neut % (Auto) 85.8 % Lymph % (Auto) 8.3 % [place] % (Auto) 5.1 % Eos % (Auto) 0.3 % Baso % (Auto) 0.0 % Neut # (Auto) 9.40 H (1.4-6.5) K/uL Lymph # (Auto) 0.91 L (1.2-3.4) K/uL [place] # (Auto) 0.56 (0.11-0.59) K/uL Eos # (Auto) 0.03 (0-0.5) K/uL Baso # (Auto) 0.00 (0-0.2) K/uL Immature Gran # (Auto) 0.05 H (0.00-0.02) K/uL PT 27.7 H (9.0-12.0) Seconds INR 2.8 H (0.9-1.1) APTT 51.9 H* (21.0-31.0) Seconds PTT Ratio 1.9 Sodium 138 (136-145) mmol/L Potassium 4.2 (3.5-5.1) mmol/L Chloride 105 (98-107) mmol/L Carbon Dioxide 27 (21-32) mmol/L Anion Gap 6.0 (3-11) BUN 21 H (7-18) mg/dl Creatinine 1.14 (0.6-1.4) mg/dl Est Cr Clr Drug Dosing 81.6 ml/min Est GFR ( Amer) 78.9 Est GFR (Non-Af Amer) 68.1 BUN/Creatinine Ratio 18.2 (10-20) Glucose 101 H (70-99) mg/dl Calcium 9.1 (8.5-10.1) mg/dl Total Bilirubin 0.3 (0.2-1) mg/dl AST 33 (15-37) U/L ALT 39 (12-78) U/L Alkaline Phosphatase 200 H (45-117) U/L Troponin I < 0.015 (0-0.045) ng/ml Total Protein 7.7 (6.4-8.2) gm/dl Albumin 3.8 (3.4-5.0) gm/dl Globulin 3.9 (2.5-4.0) gm/dl Albumin/Globulin Ratio 1.0 (0.9-2) Lipase 76 (73-393) U/L Specimen Hemolysis Administered Medications Morphine Sulfate (Morphine Sulfate 4 Mg/Ml 1 Ml Carp\Vial) 4 mg IV Q2H PRN PRN Reason: Pain Stop: 08/06/20 15:34 Last Admin: 07/23/20 15:49 Dose: 4 mg Documented by: [id number] Discontinued Medications Sodium Chloride (Nss) 500 mls @ 999 mls/hr IV .Q31M DARNELL Stop: 07/23/20 12:30 Last Infusion: 07/23/20 12:30 Dose: 0 mls/hr Documented by: [id number] Admin: 07/23/20 11:57 Dose: 999 mls/hr Documented by: [id number] Lorazepam (Ativan) 0.5 mg in 1 mls @ 1 mls/min IV NOW STA Stop: 07/23/20 13:40 Last Admin: 07/23/20 14:00 Dose: 1 mls/min Documented by: [id number] Morphine Sulfate (Morphine Sulfate 4 Mg/Ml 1 Ml Carp\Vial) 4 mg IV Q20M PRN PRN Reason: Pain Stop: 08/06/20 11:46 Last Admin: 07/23/20 13:18 Dose: 4 mg Documented by: [id number] Admin: 07/23/20 12:22 Dose: 4 mg Documented by: [id number] Admin: 07/23/20 11:58 Dose: 4 mg Documented by: [id number] Ondansetron HCl (Ondansetron Inj 2 Mg/Ml 2 Ml Vial) 4 mg IV NOW STA Stop: 07/23/20 11:48 Last Admin: 07/23/20 11:57 Dose: 4 mg Documented by: [id number] Phytonadione (Phytonadione 5 Mg Tab) 5 mg PO NOW STA Stop: 07/23/20 13:19 Last Admin: 07/23/20 13:59 Dose: 5 mg Documented by: [id number] Imaging Data Radiologist's Impression: Patient: MICHELLE BHAKTA Date: 07/23/20 MR#: [id number]: [address] Acct ID:[id number]: [address] Date: 1955[facility] Zip: [place] [address] Age: 64Location: ED Sex: MRoom/Bed: Att Phy:Diagnosis: LEFT LEG INJURY Apoorva Phy: Anjana Villar CRNPService Date: 07/23/20 Fam Phy:Interpreting Phy: Daren Manrique MD Admit Phy: Ordering Phy: Toan Unger DO cc: ~ XR hip LT 2V w pelvis CLINICAL HISTORY: Left hip pain status post trauma COMPARISON: 09/03/2018 DISCUSSION: The examination is limited from a positioning standpoint. There is an acute displaced subcapital left hip fracture, with resultant varus angulation. IMPRESSION: Acute displaced subcapital left hip fracture. ACT 112: Negative or not required by law. Electronically signed by: Daren Manrique M.D. 07/23/2020 12:58 PM Dictated: 07/23/20 1257 Transcribed: 07/23/20 1257 [facility] Date: 07/23/20 MR#: [id number]: [address] Acct ID:[id number]: [address] Date: 1955City Zip: [place] [address] Age: 64Location: ED Sex: MRoom/Bed: Att Phy:Diagnosis: LEFT LEG INJURY Apoorva Phy: Anjana Villar CRNPService Date: 07/23/20 Fam Phy:Interpreting Phy: Tal Harris MD Admit Phy: Ordering Phy: Toan Unger, cc: ~ XR chest 1V portable HISTORY: Atypical Chest Pain COMPARISON: Chest 01/21/2020. FINDINGS: There are low lung volumes with mild elevation of the right hemidiaphragm. This remains unchanged. The heart remains mildly enlarged. There is slight progression of the interstitial and vascular thickening suggestive of mild congestive change. No new focal lung consolidations to suggest pneumonia. No pleural effusions. No pneumothorax. IMPRESSION: Slight progression of the cardiomegaly and mild congestive change. ACT 112: Negative or not required by law. Electronically signed by: Tal Harris M.D. 07/23/2020 12:53 PM Dictated: 07/23/20 1252 Transcribed: 07/23/20 1252 Blood Pressure Blood Pressure Findings: Elevated blood pressure Blood Pressure Disposition: further management by hospitalist Discharge Plan Visit Data Chief Complaint: Fall ED Provider: Toan Unger Discharge Problem: Subcapital fracture of left hip, Fall Patient Disposition: Admitted As Inpatient Condition: Good Discharge Instructions Interventions: ED Discharge Assessment Last Done: 07/23/20 15:15
[2020-07-23] MEDS: MoRPHine SULFATE 4 MG/ML 1 ML CARP\\VIAL IV PRN ×6 (11:58→21:05)
[2020-07-23] MEDS ORDERED: SODIUM CHLORIDE 0.9% 500 ML IV SCH (12:00)
[2020-07-23 12:21] LABS: Eosinophils # (auto) 0.03 K/uL (0-0.5); Eosinophils % (auto) 0.3 %; Hematocrit (blood only) 44.2 % (42-52); Hemoglobin 15.1 g/dL (14.0-18.0); Immature Granulocytes # (auto) 0.05 K/uL (0.00-0.02); Immature Granulocytes % (auto) 0.5 %; Lymphocytes # (auto) 0.91 K/uL (1.2-3.4); Lymphocytes % (auto) 8.3 %; Mean Corpuscular Hemoglobin 33.8 pg (25-34); Mean Corpuscular Hgb Conc 34.2 g/dL (32-36); Mean Corpuscular Volume 98.9 fL (80-100); Mean Platelet Volume 9.6 fL (7.4-10.4); Monocytes # (auto) 0.56 K/uL (0.11-0.59); Monocytes % (auto) 5.1 %; Neutrophils % (auto) 85.8 %; Platelet Count 195 K/uL (130-400); RDW Coefficient of Variation 13.3 % (11.5-14.5); RDW Standard Deviation 48.3 fL (36.4-46.3); Red Blood Count 4.47 M/uL (4.7-6.1); White Blood Count 10.95 K/uL (4.8-10.8)
[2020-07-23 12:34] LABS: Alanine Aminotransferase 39 U/L (12-78); Albumin Level 3.8 gm/dl (3.4-5.0); Aspartate Aminotransferase 33 U/L (15-37); BUN Creatinine Ratio 18.2 (10-20); Blood Urea Nitrogen 21 mg/dl (7-18); Calcium 9.1 mg/dl (8.5-10.1); Carbon Dioxide 27 mmol/L (21-32); Chloride 105 mmol/L (98-107); Creatinine Clr Calc Pharmacy 81.6 ml/min; Est GFR (African American) 78.9; Est GFR (Non-African American) 68.1; Glucose 101 mg/dl (70-99); Lipase 76 U/L (73-393); Potassium 4.2 mmol/L (3.5-5.1); Sodium 138 mmol/L (136-145)
[2020-07-23 12:39] LABS: Alkaline Phosphatase 200 U/L (45-117); Bilirubin,Total 0.3 mg/dl (0.2-1); Globulin 3.9 gm/dl (2.5-4.0); INR 2.8 (0.9-1.1); Partial Thromboplastin Ratio 1.9; Prothrombin Time 27.7 Seconds (9.0-12.0); Total Protein 7.7 gm/dl (6.4-8.2); Troponin I < 0.015 ng/ml (0-0.045)
[2020-07-23 12:43] LABS: Partial Thromboplastin Time 51.9 Seconds (21.0-31.0)
--- NOTE | 2020-07-23 12:55 | XRay Report ---
XR chest 1V portable HISTORY: Atypical Chest Pain COMPARISON: Chest 01/21/2020. FINDINGS: There are low lung volumes with mild elevation of the right hemidiaphragm. This remains unc hanged. The heart remains mildly enlarged. There is slight progression of the interstitial and vascul ar thickening suggestive of mild congestive change. No new focal lung consolidations to suggest pneum onia. No pleural effusions. No pneumothorax. IMPRESSION: Slight progression of the cardiomegaly and mild congestive change. ACT 112: Negative or not required by law. Electronically signed by: Tal Harris M.D. 07/23/2020 12:53 PM
--- NOTE | 2020-07-23 13:00 | XRay Report ---
XR hip LT 2V w pelvis CLINICAL HISTORY: Left hip pain status post trauma COMPARISON: 09/03/2018 DISCUSSION: The examination is limited from a positioning standpoint. There is an acute displaced sub capital left hip fracture, with resultant varus angulation. IMPRESSION: Acute displaced subcapital left hip fracture. ACT 112: Negative or not required by law. Electronically signed by: Daren Manrique M.D. 07/23/2020 12:58 PM
[2020-07-23] MEDS ORDERED: PHYTONADIONE 5 MG TAB PO STA (13:18)
--- NOTE | 2020-07-23 13:31 | History & Physical Report ---
Date of Service July 23, 2020 Assessment & Plan (1) Closed left hip fracture: X-ray shows acute displaced subcapital left hip fracture. 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 No seizures on present medication regimen. - Continue home lamotrigine, phenytoin - Ativan PRN (3) Hx of brain cancer: S/p two resections at [facility] which left him hemiparetic. Also has had multiple bouts of meningitis. - Continue amoxicillin prophylaxis - As above for epilepsy (4) CKD (chronic kidney disease) stage 2, GFR 60-89 ml/min: Baseline Cr. ~1.0. - Presently near baseline. - Monitor (5) DVT of leg (deep venous thrombosis): Multiple DVTs, though last one was in 02/2019 that I see. No DVT on repeat Doppler in 09/2019. - Reverse warfarin for probable surgery - Start heparin gtt once INR is in normal limits if surgery is not imminent History of Present Illness Primary Care Provider: TOBIN Tolbert 64yo M w/ hx of glioblastoma s/p 2 resections in 2003 & 2006 with resulting hemiparesis and seizures who presents with left hip fracture. The patient reports that he has some foot drop from neuropathy and he reports that he simply tripped on a step and fell down. He did not strike his head and did not lose consciousness. He also had no signs or symptoms of a seizure. He reports extreme left leg pain at this time. Otherwise, he cannot really complete a ROS due to his left leg pain. Allergies Allergy/AdvReac Type Severity Reaction Status Date / Time No Known Allergies Allergy ` Verified 07/23/20 13:35 Home Medications Home Medications Medication Instructions Recorded Confirmed Type amoxicillin 500 mg capsule 500 mg PO DAILY@1600 #30 cap 09/02/19 07/23/20 Rx lorazepam 1 mg tablet 1 mg PO DAILY PRN 30 Days #30 tab 09/23/19 07/23/20 Rx lamotrigine 200 mg tablet 200 mg PO BID #60 tab 12/24/19 07/23/20 Rx phenytoin sodium extended 100 mg 200 mg PO BID 30 Days #120 cap 02/24/20 07/23/20 Rx capsule warfarin 5 mg tablet 5 mg PO .COMPLEX #90 tab 05/26/20 07/23/20 Rx lamotrigine 25 mg tablet 50 mg PO BID #120 tab 06/24/20 07/23/20 Rx atorvastatin 20 mg tablet 20 mg PO DAILY #30 tab 07/03/20 07/23/20 Rx Past Med/Surg History Medical History CKD (chronic kidney disease) stage 2, GFR 60-89 ml/min Closed left clavicular fracture Complex partial seizure Hx of brain cancer Glioblastoma Multiforme - 2004 - s/p resection [facility] 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 Small bowel obstruction Surgical History H/O cataract removal with insertion of prosthetic lens H/O shoulder surgery Hx of brain surgery 2004 initial resection for GBM at [facility]; 2006 - 2nd surgery, this time at [facility], ultimately was discovered to have blood clot & scar tissue rather than recurrent cancer Family History Father CHF (congestive heart failure) Myocardial infarction Denies family history of Brain tumor Ovarian cancer Prostate cancer Breast cancer SBO (small bowel obstruction) Colorectal cancer Social History Smoking Status: Never smoker Second Hand Exposure: No; Do You Dip or Chew Tobacco: No; Tobacco Cessation Education Requested by Patient: No Hx Alcohol Use: No Hx Substance Use: No Preferred Language: Amharic Communication Ability: Effective Department Head College Or University Required: No Beliefs That Will Affect Care: None marital status: Current Living Situation: Spouse Current Living Situation Comment: lives in [facility]; 2 children 1st marriage; 2 children 2nd marriage current occupational status: retired Other Information That Helps Us Care for You: 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 Feels Safe at Home: Yes Safety Concerns: Feels Safe At This Time caffeine: No Dental Care, Regularly: Yes Physical Activity Frequency: Does not Exercise Seatbelt Use: never Sunscreen Use: No Assistive Devices: Glasses Review of Systems Review of Systems: All systems reviewed & are unremarkable except as noted in HPI & below Physical Exam Constitutional: WD/WN, vitals as above + acute distress Eyes: EOM intact bilaterally; no conjunctival abnormality ENMT: external ear and nose normal, oropharynx normal Neck: trachea midline, no thyromegaly normal visual inspection Respiratory: normal respiratory effort, lungs clear to auscultation no respiratory distress Cardiovascular: RRR, no murmur, no edema Gastrointestinal (Abdomen): Inspection/Auscultation: abdomen normal to inspection; abdomen not distended Musculoskeletal: Extremities: + limited ROM of extremities (Left leg) Gait: + abnormal gait Skin: no rashes, warm and dry Neurologic: moves all extremities and awake Psychiatric: Orientation: alert, oriented to person and cooperative Results & Data Results & Data ([facility]) Vital Signs (Past 12 Hours) Vital Signs Temp Pulse Pulse Resp BP BP Pulse Ox 07/23/20 12:33 89 16 144/99 H 97 07/23/20 11:55 36.8 C 86 89 20 152/110 H 151/105 H 94 Code Status & VTE Plan VTE Prophylaxis Plan VTE Prophylaxis will be ordered: Yes PG Care Time/CCT Total # of Minutes Spent Total Time Spent with Patient: Total time spent is greater than 50% in coordination of care (as documented) at patient's floor/unit and/or counseling patient: Coding Level of Care Code 58799 Initial Inpt Care Lvl 3 Diagnoses Closed left hip fracture S72.002A Generalized epilepsy G40.309 Hx of brain cancer Z85.841 CKD (chronic kidney disease) stage 2, GFR 60-89 ml/min N18.2 DVT of leg (deep venous thrombosis) I82.409
[2020-07-23] MEDS ORDERED: LORazepam 0.5 MG/1 ML VIAL IV STA (13:39)
[2020-07-23] MEDS ORDERED: ACETAMINOPHEN 325 MG TAB PO PRN (15:35)
--- NOTE | 2020-07-23 16:49 | Electrocardiogram Report ---
Test Reason : Blood Pressure : / mmHG Vent. Rate : 090 BPM Atrial Rate : 090 BPM P-R Int : 144 ms QRS Dur : 096 ms QT Int : 390 ms P-R-T Axes : 051 018 038 degrees QTc Int : 477 ms Poor data quality, interpretation may be adversely affected Sinus rhythm with occasional Premature ventricular complexes Otherwise normal ECG When compared with ECG of 21-JAN-2020 18:46, Premature ventricular complexes are now Present Premature atrial complexes are no longer Present Confirmed by Maurisio West ([id number]) on 07/23/2020 4:49:29 PM Referred By: REFERRED SELF Confirmed By:Yang West
[2020-07-23] MEDS: AMOXICILLIN 500 MG CAP PO SCH (17:01)
--- NOTE | 2020-07-23 18:25 | Orthopedic Consultation ---
Date of Consultation July 23, 2020 Assessment & Plan (1) Closed left hip fracture: X-rays demonstrate Garden 4 left femoral neck fracture. We will order full-length femur films to ensure there is not any involvement distally. We will plan for surgery tomorrow with either a total hip arthroplasty versus bipolar hemiarthroplasty with Dr. Leija. Patient is being reversed with his anticoagulation. Present on Admission?: Yes History of Present Illness Reason for Consultation: Left femoral neck fracture Attending Physician: Sorin Carbajal MD History of Present Illness 64yo M w/ hx of glioblastoma s/p 2 resections in 2003 & 2006 he has weakness on the left side secondary to this. He states he has some foot drop from neuropathy and he reports that he simply tripped on a step and fell down on the sidewalk. He states he does not use a brace to assist with a foot drop. He is currently complaining of significant pain left hip. Allergies Allergy/AdvReac Type Severity Reaction Status Date / Time No Known Allergies Allergy ` Verified 07/23/20 13:35 Home Medications Home Medications Medication Instructions Recorded Confirmed Type amoxicillin 500 mg capsule 500 mg PO DAILY@1600 #30 cap 09/02/19 07/23/20 Rx lorazepam 1 mg tablet 1 mg PO DAILY PRN 30 Days #30 tab 09/23/19 07/23/20 Rx lamotrigine 200 mg tablet 200 mg PO BID #60 tab 12/24/19 07/23/20 Rx phenytoin sodium extended 100 mg 200 mg PO BID 30 Days #120 cap 02/24/20 07/23/20 Rx capsule warfarin 5 mg tablet 5 mg PO .COMPLEX #90 tab 05/26/20 07/23/20 Rx lamotrigine 25 mg tablet 50 mg PO BID #120 tab 06/24/20 07/23/20 Rx atorvastatin 20 mg tablet 20 mg PO DAILY #30 tab 07/03/20 07/23/20 Rx Patient History Medical History CKD (chronic kidney disease) stage 2, GFR 60-89 ml/min Closed left clavicular fracture Complex partial seizure Hx of brain cancer Glioblastoma Multiforme - 2004 - s/p resection [facility] 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 Small bowel obstruction Surgical History H/O cataract removal with insertion of prosthetic lens H/O shoulder surgery Hx of brain surgery 2004 initial resection for GBM at [facility]; 2006 - 2nd surgery, this time at [facility], ultimately was discovered to have blood clot & scar tissue rather than recurrent cancer Family History Father CHF (congestive heart failure) Myocardial infarction Denies family history of Brain tumor Ovarian cancer Prostate cancer Breast cancer SBO (small bowel obstruction) Colorectal cancer Social History Smoking Status: Never smoker Second Hand Exposure: No; Do You Dip or Chew Tobacco: No; Tobacco Cessation Education Requested by Patient: No Hx Alcohol Use: No Hx Substance Use: No Preferred Language: Namibian Communication Ability: Effective Hops Farmworker Required: No Beliefs That Will Affect Care: None marital status: Current Living Situation: Spouse Current Living Situation Comment: lives in [facility]; 2 children 1st marriage; 2 children 2nd marriage current occupational status: retired Other Information That Helps Us Care for You: 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 He has significant pain with any examination of the left lower extremity. Results & Data ([facility]) Vital Signs (Past 12 Hours) Vital Signs Temp Pulse Pulse Resp BP BP Pulse Ox 07/23/20 15:30 36.8 C 108 H 20 158/99 H 91 07/23/20 15:15 97 H 16 139/104 H 95 07/23/20 14:38 106 H 18 119/84 95 07/23/20 12:33 89 16 144/99 H 97 07/23/20 11:55 36.8 C 86 89 20 152/110 H 151/105 H 94
--- NOTE | 2020-07-23 19:56 | Anesthesiology Consultation ---
Date of Service July 23, 2020 Assessment & Plan (1) Encounter for pre-operative examination: Chart Review Chart Review: Acceptable Risk for Surgery (pt on warfarin - being given vitamin K to prepare for surgery) History Height/Weight Height: 5 ft 10 in Weight: 107.9 kg Allergies Allergy/AdvReac Type Severity Reaction Status Date / Time No Known Allergies Allergy ` Verified 07/23/20 13:35 Medications Home Medications Medication Instructions Recorded Confirmed Last Taken amoxicillin 500 mg capsule 500 mg PO DAILY@1600 #30 cap 09/02/19 07/23/20 Unkn own lorazepam 1 mg tablet 1 mg PO DAILY PRN 30 Days #30 tab 09/23/19 07/23/20 Unknown lamotrigine 200 mg tablet 200 mg PO BID #60 tab 12/24/19 07/23/20 07/23/20 08:00 phenytoin sodium extended 100 mg 200 mg PO BID 30 Days #120 cap 02/24/20 07/23/20 07/23/20 08:00 capsule warfarin 5 mg tablet 5 mg PO .COMPLEX #90 tab 05/26/20 07/23/20 Unknown lamotrigine 25 mg tablet 50 mg PO BID #120 tab 06/24/20 07/23/20 07/23/20 08:00 atorvastatin 20 mg tablet 20 mg PO DAILY #30 tab 07/03/20 07/23/20 Unknown Active Medications Generic Name Dose Route Start Last Admin Trade Name Freq PRN Reason Stop Dose Admin Amoxicillin 500 mg 07/23/20 16:00 07/23/20 17:01 Amoxicillin 500 Mg Cap PO 08/22/20 15:59 500 mg DAILY@1600 DARNELL Administration Morphine Sulfate 4 mg 07/23/20 15:35 07/23/20 18:35 Morphine Sulfate 4 Mg/Ml 1 Ml Carp\Vial IV 08/06/20 15:34 4 mg Q2H PRN Administration Pain Past Medical History Medical History (Updated 07/23/20 @ 19:59 by José Manuel Matthew MD) CKD (chronic kidney disease) stage 2, GFR 60-89 ml/min Closed left clavicular fracture Complex partial seizure DVT of leg (deep venous thrombosis) Hx of brain cancer Glioblastoma Multiforme - 2004 - s/p resection [facility] 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 Small bowel obstruction Past Family History Family History Father CHF (congestive heart failure) Myocardial infarction Denies family history of Brain tumor Ovarian cancer Prostate cancer Breast cancer SBO (small bowel obstruction) Colorectal cancer Past Surgical History Surgical History H/O cataract removal with insertion of prosthetic lens H/O shoulder surgery Hx of brain surgery 2004 initial resection for GBM at [facility]; 2007 - 2nd surgery, this time at [facility], ultimately was discovered to have blood clot & scar tissue rather than recurrent cancer Social History Smoking Status: Never smoker Do You Dip or Chew Tobacco: No Hx Alcohol Use: No Hx Substance Use: No substance use type: does not use Physical Exam Vital Signs Last Vital Signs Temp 36.8 C 07/23/20 15:30 Pulse 108 H 07/23/20 15:30 Resp 20 07/23/20 15:30 BP 158/99 H 07/23/20 15:30 Pulse Ox 91 07/23/20 15:30 Testing Laboratory Results 07/23/20 11:55 07/23/20 11:55 PT 27.7 Seconds (9.0-12.0) H 07/23/20 11:55 INR 2.8 (0.9-1.1) H 07/23/20 11:55 APTT 51.9 Seconds (21.0-31.0) H* 07/23/20 11:55 COVID negative 07/23/20 Electrocardiogram Date: 07/23/20 Findings: + NSR @ (90 some PVC's) Chest X-Ray Date: 07/23/20 Findings: + cardiomegaly (slight progression) and + pulmonary vascular congestion (mild)
--- NOTE | 2020-07-23 20:52 | XRay Report ---
XR femur LT 2V routine CLINICAL HISTORY: hip fracture LEFT HIP PAIN COMPARISON: Earlier in the day DISCUSSION: 6 views are provided for interpretation. The study is again limited from a positioning st andpoint. There is a subcapital left hip fracture with varus angulation. There is no dislocation. The re are bone infarcts identified within the distal femoral metaphysis and proximal tibial metaphysis. IMPRESSION: Subcapital left hip fracture with varus angulation. ACT 112: Negative or not required by law. Electronically signed by: Daren Manrique M.D. 07/23/2020 8:51 PM
[2020-07-23] MEDS: ONDANSETRON INJ 2 MG/ML 2 ML VIAL IV PRN (21:05)
[2020-07-23] MEDS: LORazepam 0.5 MG TAB PO PRN (21:10)
[2020-07-23] MEDS: lamoTRIgine 100 MG TAB PO SCH (21:10)
[2020-07-23] MEDS: lamoTRIgine 25 MG TAB PO SCH (21:10)
[2020-07-23] MEDS: PHENYTOIN SODIUM ER 100 MG CAP PO SCH (21:11)
[2020-07-23] MEDS ORDERED: PHYTONADIONE 5 MG in SODIUM CHLORIDE 0.9% 50 ML IV ONE (22:15)
[2020-07-23] MEDS ORDERED: TAMSULOSIN HCL 0.4 MG CAP PO ONE (23:34)
[2020-07-24] MEDS: ONDANSETRON INJ 2 MG/ML 2 ML VIAL IV PRN (02:40)
[2020-07-24] MEDS: LORazepam 0.5 MG TAB PO PRN ×2 (02:40→06:45)
[2020-07-24] MEDS: MoRPHine SULFATE 4 MG/ML 1 ML CARP\\VIAL IV PRN ×3 (02:41→06:45)
[2020-07-24 06:22] LABS: Hematocrit (blood only) 42.1 % (42-52); Hemoglobin 13.9 g/dL (14.0-18.0); Mean Corpuscular Hemoglobin 33.1 pg (25-34); Mean Corpuscular Volume 100.2 fL (80-100); Mean Platelet Volume 9.3 fL (7.4-10.4); Platelet Count 180 K/uL (130-400); RDW Coefficient of Variation 13.4 % (11.5-14.5); RDW Standard Deviation 49.3 fL (36.4-46.3); White Blood Count 9.23 K/uL (4.8-10.8)
[2020-07-24 06:29] LABS: INR 1.6 (0.9-1.1); Prothrombin Time 16.7 Seconds (9.0-12.0)
[2020-07-24 06:54] LABS: Calcium 8.4 mg/dl (8.5-10.1); Creatinine Clr Calc Pharmacy 110.7 ml/min; Est GFR (Non-African American) 93.2; Magnesium 2.1 mg/dl (1.8-2.4); Potassium 4.2 mmol/L (3.5-5.1)
[2020-07-24] MEDS: lamoTRIgine 100 MG TAB PO SCH ×2 (08:03→21:46)
[2020-07-24] MEDS: ATORVASTATIN 20 MG TAB PO SCH (08:03)
[2020-07-24] MEDS: PHENYTOIN SODIUM ER 100 MG CAP PO SCH ×2 (08:03→21:46)
[2020-07-24] MEDS: POLYETHYLENE (MIRALAX) 17 GM PACK PO SCH (08:03)
[2020-07-24] MEDS: lamoTRIgine 25 MG TAB PO SCH ×2 (08:03→21:46)
[2020-07-24] MEDS: TAMSULOSIN HCL 0.4 MG CAP PO SCH (08:03)
[2020-07-24] MEDS ORDERED: hydrALAZINE HCL 20 MG/ML VIAL IV PRN (08:12)
--- NOTE | 2020-07-24 09:08 | Hospitalist Progress Note ---
Date of Service July 24, 2020 Assessment & Plan (1) Closed left hip fracture: * X-ray shows acute displaced subcapital left hip fracture. * Orthopedics consult -- appreciate assistance * Pain control * NPO @ midnight * INR 1.6 after 5 of Vit K. GIven additional 5mg today with repeat INR 1.4. H olding for OR today with Ortho * Given ativan IV x 1 for muscle spasm as not able to administer Valium on floor. Additionally ordered 20mg IV lasix x 1 for congestion on pre-op CXR. No hx of CHF. BNP <500. EKG with SR with PVCs, otherwise normal * UA without infection * COVID 19 screening negative * Monitor labs * PT/OT following surgery per ortho service (2) Anemia: * H/h 13.9/42.1 -- secondary to IVF given in ER (1L) * Macrocytic with MCV 100.2 -- folate/b12 added to AM labs and showed low B12. Ordered IM injection and will need to continue replacement once taking PO. Likely secondary to epileptic medications * CBC in AM (3) Generalized epilepsy: * Due to his cancer resections. No seizures on present medication regimen. * Continue home lamotrigine, phenytoin * Ativan PRN (4) Hx of brain cancer: * S/p two resections at [facility] which left him hemiparetic. Also has had multiple bouts of meningitis. * Continue amoxicillin prophylaxis * As above for epilepsy (5) CKD (chronic kidney disease) stage 2, GFR 60-89 ml/min: * Cr 0.84. Baseline near ~1 * BMP in AM (6) DVT of leg (deep venous thrombosis): * Multiple DVTs, though last one was in 02/2019 that I see. No DVT on repeat Doppler in 09/2019. * Reverse warfarin for OR as above. * INR in AM Dispo: OR this afternoon with Dr. Leija Admission and Anticipated Discharge Date Admission Date: July 23, 2020 Subjective Patient evaluated this morning. In quite a bit of pain due to muscle spasms in his back and cough that worsens the pain to his hip. Discussed ordering muscle relaxant to see if we can get additional relief pre- operatively. entered room during examination as patient unable to answer much in the way of ROS due to pain and "not being able to put things together a lot of the time, dear" as stated by patient. States patient utilized cane for ambulation prior to admission. Denied shortness of breath with ambulation, decreased exercise tolerance, orthopnea. No history of CHF despite evidence on imaging. No ECHO to note. Plans for OR this afternoon for repair of his hip, as fractured following tripping. Has foot drop but does not utilize assistive shoe/boot. No fever, chills, chest pain, shortness of breath reported. Some lower abdominal pain worsened with cough or movement as well. Review of Systems Review of Systems: All systems reviewed & are unremarkable except as noted in HPI & below Physical Exam Constitutional: WD/WN, vitals as above + acute distress and + obese; + uncomfortable moaning out in discomfort as he states spasms causing movement and worsened hip pain Eyes: + anicteric sclerae and PERRL; no conjunctival abnormality ENMT: Mouth: no dentition abnormality Mallampati Class: III mmm Neck: normal visual inspection and trachea midline Respiratory: normal respiratory effort; no respiratory distress Auscultation: + crackles (bibasilar) and + wheezes (expiratory) on 2L NC Cardiovascular: Rate/Rhythm: regular rhythm and + tachycardic Heart Sounds: no murmur Extremities: normal capillary refill Gastrointestinal (Abdomen): Inspection/Auscultation: abdomen normal to inspection, + abdomen distended and normal bowel sounds Percussion/Palpation: abdomen nontender and no guarding Musculoskeletal: Extremities: + limited ROM of extremities (Left leg -- internally rotated and flexed -- exam def due to pain) Skin: warm, dry Neurologic: moves all extremities and awake Psychiatric: Orientation: alert, oriented to person and cooperative Results & Data Results & Data ([facility]) Vital Signs (Past 12 Hours) Vital Signs Temp Pulse Pulse Resp BP Pulse Ox 07/24/20 07:40 37.1 C 103 H 18 133/86 94 07/23/20 23:40 92 07/23/20 23:35 37.4 C 111 H 22 145/110 H 86 L Laboratory Results 07/24/20 07/24/20 07/24/20 Range/Units 08:26 07:16 06:10 WBC (4.8-10.8) K/uL RBC (4.7-6.1) M/uL Hgb (14.0-18.0) g/dL Hct (42-52) % MCV (80-100) fL MCH (25-34) pg MCHC (32-36) g/dL RDW Std Deviation (36.4-46.3) fL RDW Coeff of Paul (11.5-14.5) % Plt Count (130-400) K/uL MPV (7.4-10.4) fL Immature Gran % (Auto) % Neut % (Auto) % Lymph % (Auto) % [place] % (Auto) % Eos % (Auto) % Baso % (Auto) % Neut # (Auto) (1.4-6.5) K/uL Lymph # (Auto) (1.2-3.4) K/uL [place] # (Auto) (0.11-0.59) K/uL Eos # (Auto) (0-0.5) K/uL Baso # (Auto) (0-0.2) K/uL Immature Gran # (Auto) (0.00-0.02) K/uL PT (9.0-12.0) Seconds INR (0.9-1.1) APTT (21.0-31.0) Seconds PTT Ratio Sodium 138 (136-145) mmol/L Potassium 4.2 (3.5-5.1) mmol/L Chloride 107 (98-107) mmol/L Carbon Dioxide 28 (21-32) mmol/L Anion Gap 3.0 (3-11) BUN 19 H (7-18) mg/dl Creatinine 0.84 D (0.6-1.4) mg/dl Est Cr Clr Drug Dosing 110.7 ml/min Est GFR ( Amer) 108.0 Est GFR (Non-Af Amer) 93.2 BUN/Creatinine Ratio 22.0 H (10-20) Glucose 117 H (70-99) mg/dl Calcium 8.4 L (8.5-10.1) mg/dl Magnesium 2.1 (1.8-2.4) mg/dl Total Bilirubin (0.2-1) mg/dl AST (15-37) U/L ALT (12-78) U/L Alkaline Phosphatase (45-117) U/L Troponin I (0-0.045) ng/ml Total Protein (6.4-8.2) gm/dl Albumin (3.4-5.0) gm/dl Globulin (2.5-4.0) gm/dl Albumin/Globulin Ratio (0.9-2) Lipase (73-393) U/L Vitamin B12 Pending Folate Pending Specimen Hemolysis Phenytoin COVID-19 Eval Order SARS-CoV-2, RNA, NAAT (NEGATIVE) Blood Type O Positive Antibody Screen NEGATIVE 07/24/20 07/24/20 07/23/20 Range/Units 06:10 06:10 14:04 WBC 9.23 (4.8-10.8) K/uL RBC 4.20 L (4.7-6.1) M/uL Hgb 13.9 L (14.0-18.0) g/dL Hct 42.1 (42-52) % MCV 100.2 H (80-100) fL MCH 33.1 (25-34) pg MCHC 33.0 (32-36) g/dL RDW Std Deviation 49.3 H (36.4-46.3) fL RDW Coeff of Paul 13.4 (11.5-14.5) % Plt Count 180 (130-400) K/uL MPV 9.3 (7.4-10.4) fL Immature Gran % (Auto) % Neut % (Auto) % Lymph % (Auto) % [place] % (Auto) % Eos % (Auto) % Baso % (Auto) % Neut # (Auto) (1.4-6.5) K/uL Lymph # (Auto) (1.2-3.4) K/uL [place] # (Auto) (0.11-0.59) K/uL Eos # (Auto) (0-0.5) K/uL Baso # (Auto) (0-0.2) K/uL Immature Gran # (Auto) (0.00-0.02) K/uL PT 16.7 H (9.0-12.0) Seconds INR 1.6 H (0.9-1.1) APTT (21.0-31.0) Seconds PTT Ratio Sodium (136-145) mmol/L Potassium (3.5-5.1) mmol/L Chloride (98-107) mmol/L Carbon Dioxide (21-32) mmol/L Anion Gap (3-11) BUN (7-18) mg/dl Creatinine (0.6-1.4) mg/dl Est Cr Clr Drug Dosing ml/min Est GFR ( Amer) Est GFR (Non-Af Amer) BUN/Creatinine Ratio (10-20) Glucose (70-99) mg/dl Calcium (8.5-10.1) mg/dl Magnesium (1.8-2.4) mg/dl Total Bilirubin (0.2-1) mg/dl AST (15-37) U/L ALT (12-78) U/L Alkaline Phosphatase (45-117) U/L Troponin I (0-0.045) ng/ml Total Protein (6.4-8.2) gm/dl Albumin (3.4-5.0) gm/dl Globulin (2.5-4.0) gm/dl Albumin/Globulin Ratio (0.9-2) Lipase (73-393) U/L Vitamin B12 Folate Specimen Hemolysis Phenytoin 17.4 COVID-19 Eval Order SARS-CoV-2, RNA, NAAT (NEGATIVE) Blood Type Antibody Screen 07/23/20 07/23/20 07/23/20 Range/Units 13:23 11:55 11:55 WBC (4.8-10.8) K/uL RBC (4.7-6.1) M/uL Hgb (14.0-18.0) g/dL Hct (42-52) % MCV (80-100) fL MCH (25-34) pg MCHC (32-36) g/dL RDW Std Deviation (36.4-46.3) fL RDW Coeff of Paul (11.5-14.5) % Plt Count (130-400) K/uL MPV (7.4-10.4) fL Immature Gran % (Auto) % Neut % (Auto) % Lymph % (Auto) % [place] % (Auto) % Eos % (Auto) % Baso % (Auto) % Neut # (Auto) (1.4-6.5) K/uL Lymph # (Auto) (1.2-3.4) K/uL [place] # (Auto) (0.11-0.59) K/uL Eos # (Auto) (0-0.5) K/uL Baso # (Auto) (0-0.2) K/uL Immature Gran # (Auto) (0.00-0.02) K/uL PT 27.7 H (9.0-12.0) Seconds INR 2.8 H (0.9-1.1) APTT 51.9 H* (21.0-31.0) Seconds PTT Ratio 1.9 Sodium 138 (136-145) mmol/L Potassium 4.2 (3.5-5.1) mmol/L Chloride 105 (98-107) mmol/L Carbon Dioxide 27 (21-32) mmol/L Anion Gap 6.0 (3-11) BUN 21 H (7-18) mg/dl Creatinine 1.14 (0.6-1.4) mg/dl Est Cr Clr Drug Dosing 81.6 ml/min Est GFR ( Amer) 78.9 Est GFR (Non-Af Amer) 68.1 BUN/Creatinine Ratio 18.2 (10-20) Glucose 101 H (70-99) mg/dl Calcium 9.1 (8.5-10.1) mg/dl Magnesium (1.8-2.4) mg/dl Total Bilirubin 0.3 (0.2-1) mg/dl AST 33 (15-37) U/L ALT 39 (12-78) U/L Alkaline Phosphatase 200 H (45-117) U/L Troponin I < 0.015 (0-0.045) ng/ml Total Protein 7.7 (6.4-8.2) gm/dl Albumin 3.8 (3.4-5.0) gm/dl Globulin 3.9 (2.5-4.0) gm/dl Albumin/Globulin Ratio 1.0 (0.9-2) Lipase 76 (73-393) U/L Vitamin B12 Folate Specimen Hemolysis Phenytoin Cancelled COVID-19 Eval Order SARS-CoV-2, RNA, NAAT (NEGATIVE) Blood Type Antibody Screen 07/23/20 07/23/20 07/23/20 Range/Units 11:55 11:15 11:15 WBC 10.95 H (4.8-10.8) K/uL RBC 4.47 L (4.7-6.1) M/uL Hgb 15.1 (14.0-18.0) g/dL Hct 44.2 (42-52) % MCV 98.9 (80-100) fL MCH 33.8 (25-34) pg MCHC 34.2 (32-36) g/dL RDW Std Deviation 48.3 H (36.4-46.3) fL RDW Coeff of Paul 13.3 (11.5-14.5) % Plt Count 195 (130-400) K/uL MPV 9.6 (7.4-10.4) fL Immature Gran % (Auto) 0.5 % Neut % (Auto) 85.8 % Lymph % (Auto) 8.3 % [place] % (Auto) 5.1 % Eos % (Auto) 0.3 % Baso % (Auto) 0.0 % Neut # (Auto) 9.40 H (1.4-6.5) K/uL Lymph # (Auto) 0.91 L (1.2-3.4) K/uL [place] # (Auto) 0.56 (0.11-0.59) K/uL Eos # (Auto) 0.03 (0-0.5) K/uL Baso # (Auto) 0.00 (0-0.2) K/uL Immature Gran # (Auto) 0.05 H (0.00-0.02) K/uL PT (9.0-12.0) Seconds INR (0.9-1.1) APTT (21.0-31.0) Seconds PTT Ratio Sodium (136-145) mmol/L Potassium (3.5-5.1) mmol/L Chloride (98-107) mmol/L Carbon Dioxide (21-32) mmol/L Anion Gap (3-11) BUN (7-18) mg/dl Creatinine (0.6-1.4) mg/dl Est Cr Clr Drug Dosing ml/min Est GFR ( Amer) Est GFR (Non-Af Amer) BUN/Creatinine Ratio (10-20) Glucose (70-99) mg/dl Calcium (8.5-10.1) mg/dl Magnesium (1.8-2.4) mg/dl Total Bilirubin (0.2-1) mg/dl AST (15-37) U/L ALT (12-78) U/L Alkaline Phosphatase (45-117) U/L Troponin I (0-0.045) ng/ml Total Protein (6.4-8.2) gm/dl Albumin (3.4-5.0) gm/dl Globulin (2.5-4.0) gm/dl Albumin/Globulin Ratio (0.9-2) Lipase (73-393) U/L Vitamin B12 Folate Specimen Hemolysis Phenytoin COVID-19 [facility] SARS-CoV-2, RNA, NAAT NEGATIVE (NEGATIVE) Blood Type Antibody Screen Diagnostic Findings FEMUR XRAY LT 2V IMPRESSION: Subcapital left hip fracture with varus angulation. HIP/PELVIS IMPRESSION: Acute displaced subcapital left hip fracture. CXR IMPRESSION: Slight progression of the cardiomegaly and mild congestive change. PG Care Time/CCT Total # of Minutes Spent Total Time Spent with Patient: Total time spent is greater than 50% in co ordination of care (as documented) at patient's floor/unit and/or counseling patient: Coding Level of Care Code 92432 Subseq Hosp Care Lvl 2 Diagnoses Closed left hip fracture S72.002A Anemia D64.9 Generalized epilepsy G40.309 Hx of brain cancer Z85.841 CKD (chronic kidney disease) stage 2, GFR 60-89 ml/min N18.2 DVT of leg (deep venous thrombosis) I82.409
[2020-07-24] MEDS ORDERED: PHYTONADIONE 2.5 MG in SODIUM CHLORIDE 0.9% 50 ML IV ONE (09:30)
[2020-07-24 09:54] LABS: Folate (Folic Acid) 10.3 ng/ml (>5.38)
[2020-07-24] MEDS ORDERED: LORazepam 0.5 MG/1 ML VIAL IV STA (10:16)
[2020-07-24] MEDS ORDERED: CYANOCOBALAMIN 1,000 MCG in SYRINGE 0.97 ML IM ONE (10:21)
[2020-07-24] MEDS ORDERED: CYANOCOBALAMIN 1000 MCG/ML VIAL IM ONE (10:45)
[2020-07-24 11:25] LABS: INR 1.4 (0.9-1.1); Prothrombin Time 14.2 Seconds (9.0-12.0)
[2020-07-24] MEDS ORDERED: FUROSEMIDE 20 MG in SYRINGE 0 ML IV ONE (12:30)
[2020-07-24] MEDS ORDERED: ATROPINE SULFATE 0.1 MG/ML 10ML SYR IV PRN (12:54)
[2020-07-24] MEDS ORDERED: HYDROmorphone INJ 1 MG/ML SYRINGE IV PRN (12:54)
[2020-07-24] MEDS ORDERED: ePHEDrine sulfate 50 MG/ML AMP IV PRN (12:54)
[2020-07-24] MEDS ORDERED: ONDANSETRON INJ 2 MG/ML 2 ML VIAL IV PRN ×2 (12:54→18:27)
[2020-07-24] MEDS ORDERED: fentaNYL citrate 100 MCG/2 ML VIAL IV PRN (12:54)
[2020-07-24 12:57] LABS: Appearance Urine Clear (Clear); Bacteria Urine Automated Negative (Negative); Bilirubin Urine Negative (Negative); Blood Urine 2+ (Negative); Color Urine Dark Yellow; Glucose Urine UA Negative (Negative); Ketones Urine Negative (Negative); Leukocyte Esterase Urine Negative (Negative); Nitrite Urine Negative (Negative); Protein Urine Negative (Negative); Specific Gravity Urine 1.027 (1.000-1.030); Urobilinogen Urine Negative (Negative)
[2020-07-24] MEDS ORDERED: BACITRACIN INJ 50,000 UNIT VIAL ONE (13:03)
[2020-07-24] MEDS ORDERED: LIDOCAINE HCL 2% 2 ML VIAL/AMP(20MG/ML) INFIL ONE (13:07)
[2020-07-24] MEDS ORDERED: ONDANSETRON INJ 2 MG/ML 2 ML VIAL ONE (13:07)
[2020-07-24] MEDS ORDERED: PROPOFOL IV EMULSION 10 MG/ML 20 ML VIAL IV ONE (13:07)
[2020-07-24] MEDS ORDERED: DEXAMETHASONE SOD INJ 4 MG/ML VIAL ONE (13:07)
[2020-07-24] MEDS ORDERED: MIDAZOLAM HCL 1 MG/ML 2ML VIAL ONE (13:07)
[2020-07-24] MEDS ORDERED: NEOSTIGMINE METHYLSULFATE 5 MG/5 ML SYR ONE (13:07)
[2020-07-24] MEDS ORDERED: fentaNYL citrate 100 MCG/2 ML VIAL ONE (13:07)
[2020-07-24] MEDS ORDERED: GLYCOPYRROLATE 0.2 MG/ML VIAL ONE (13:07)
--- NOTE | 2020-07-24 13:12 | History & Physical Bridge Note ---
Date of Service July 24, 2020 History & Physical Bridge Note I have examined the patient, reviewed the History & Physical and in the interval since the performance of the History & Physical I have noted the following changes of clinical significance: no changes noted
[2020-07-24] MEDS ORDERED: ROPIVACAINE 0.5% HCL/PF 150 MG, BUPIVACAINE 0.5% MPF 30 ML, EPINEPHrine 30MG/30ML (OR U... INFIL SCH (13:45)
[2020-07-24] MEDS ORDERED: PHENYLEPHRINE 100MCG/ML 5ML SYR ONE (14:11)
[2020-07-24] MEDS ORDERED: ceFAZolin 2000MG 2,000 MG/15 ML SYR IV ONE (14:44)
[2020-07-24] MEDS ORDERED: ROCURONIUM BROMIDE 10 MG/ML 5 ML VIAL IV ONE (16:04)
[2020-07-24] MEDS ORDERED: ALBUTEROL HFA INHALER 8.5 GM ONE (16:14)
--- NOTE | 2020-07-24 16:51 | Operative Report ---
Post Operative Report Pre & Post Diagnosis Operation Date: 07/24/20 07:00 Pre-Op Diagnosis: LEFT HIP FRACTURE, displaced femoral neck Post-Op Diagnosis: LEFT HIP FRACTURE, displaced femoral neck neck with posterior comminution I identified the patient and participated in the time-out.: Yes Procedure Operation Date: 07/24/20 07:00 Actual Procedures p Left Total Hip Arthroplasty, application superficial wound VAC- Jorge Leija MD Surgeon Jorge Leija MD Credit Negotiator TERESA Cm Estimated Blood Loss 200 Findings Consistent with Post-Op Diagnosis Specimens Femoral head Drains 2 Hemovac Anesthesia Type General Regional Complications none Disposition Accompanied Patient To Recovery: No Disposition: Recovery Room Indications 64-year-old male history of left hemiparesis due to brain tumor surgery. He has dropfoot on left side. He still active and walks out to his barn and works in the barn on his projects. He does lifting. X-rays demonstrate a femoral neck fracture with angulation and displacement. He has good femoral cortexes. Description of Procedure Patient was taken to the operating room anesthetized under general anesthesia. The patient was placed supine on the operating table and the sacral pad. The bed was placed in some Trendelenburg and tilted to the right to help expose the left hip. The leg was shortened and externally rotated consistent with the displaced femoral neck fracture. There was some chronic venous stasis changes in both legs and some edema in the feet. Patient had abdominal obesity and some obesity around the hip joint. The left hip was sterilely prepped and draped in usual sterile fashion. A Dumont-type approach was performed to the hip. A longitudinal incision was made over the hip. The skin was incised sharply and the subcutaneous tissues were divided down to the fascia. Subcutaneous bleeders were cauterized. The fascia marco antonio was divided longitudinally. The gluteus medius was inspected and this demonstrated intact gluteus medius tendon and some hemorrhage in the bursa from the trauma. The trochanteric bursa was resected.. The medius was split between its anterior 40% and posterior 60%. The minimus was identified split longitudinally and reflected off of the capsule. An incision was made through the capsule extending up to the acetabulum. A cuff of tissue of the medius was left on the greater trochanter for repair. The vastus lateralis was split for 3 cm. A muscular capsular flap was elevated off of the fracture. Femoral neck fracture demonstrated displaced femoral neck fracture with posterior neck comminution. The guide for the addwish hip system was used. The neck cut was made approximately 15 mm proximal to the lesser trochanter in neutral anteversion. The femoral head and neck fragment were removed. Femoral head was measured at 52 mm in diameter. There was no particular arthritis noted. Acetabular retractors were placed. The remnants of the ligamentum teres was resected. The acetabulum demonstrated normal cartilage. The acetabular labrum was resected in the soft tissue and acetabular fossa was resected.. The acetabulum was prepared for the cup. I used the [employer]ER cluster acetabular shell. Starting with 44 reamer to medialize reaming to the inner table and then sequential reamers up to a 56 mm diameter were used. Trial reduction demonstrated stable fixation with the trial. The acetabular component as dictated was impacted in position at approximately 15 degrees of anteversion and 45 degrees of abduction. There was a good press-fit fixation and 2 additional 6.5 mm cancellous screws were placed into the acetabulum cup. The VendRxdent x-ray poly-10 degree polyethylene insert 36 mm inner diameter F component was placed with a high wall posterior superior. Fixation was assessed and then the orthomix anesthetic was injected around the capsular area around the acetabular component and then after the irrigation attention was taken to the femur. The femur was then exposed with flexion external rotation. There was some fracture lines in the posterior neck and comminuted pieces that were removed. Because of this I decided to use a cemented stem. The femoral canal was prepared with a box osteotome followed by canal reamer followed by lateralizing reamer and sequential broaches up to a size 4 Accolade C component. This had good fit and fill with the trial. Trial reduction was performed with a 132 degree neck angle with a 36+0 neck length t rial head. The hip was stable through flexion adduction and internal rotation and extension adduction and external rotation. Leg lengths demonstrated equal leg lengths. The trials removed and the canal was irrigated copiously with pulsatile lavage solution. The final component was the Accolade C1 32 degree cemented hip stem. The medium distal spacer was used. The canal was irrigated the cement restrictor was placed at appropriate level and a tampon was used for suction to dry the canal. Stem was then cemented into position and held in position until the cement cured. Palacos G cement was used. The the Biolox delta ceramic V 40 femoral head 36 mm +0 neck length was impacted onto the stem. The hip was reduced to the acetabulum and stability was verified. The wound was copiously irrigated again with pulsatile lavage. 2 Hemovac drains were placed deep into the joint and brought out laterally. More orthomix was injected into the outer soft tissues subcutaneous and fascial and muscular tissues. The capsule and minimus were repaired with interrupted [id number] #0 Vicryl sutures. The minimus was repaired to the greater trochanter with a transosseous #5 FiberWire suture with a Fabio-Benjamín suture technique. The medius was repaired with transosseous #5 FiberWire sutures and lateral row fixation with [id number]-ldewr #2 FiberWire suture. The vastus lateralis was closed interrupted [id number] #1 Vicryl sutures. The fascia marco antonio was repaired with interrupted [id number] #1 Vicryl sutures the subcutaneous tissue closed with large #2 Vicryl sutures due to the deep layer of fat.. The skin was closed with matthew. Sterile dressings were applied and a Prevena wound VAC. My physician surveyor's assistant TERESA Cm assisted in the surgery with positioning prepping draping leg position and soft tissue retraction instrument management and assisted in the outer closure and will participate in the postoperative care the patient. The patient tolerated the procedure well. I attest to the content of the Intraoperative Record and any orders documented therein. Any exceptions are noted below.
--- NOTE | 2020-07-24 17:38 | XRay Report ---
XR hip 1V LT w pelvis CLINICAL HISTORY: Postoperative evaluation. COMPARISON: Left femur radiographs July 23, 2020. FINDINGS: Alignment of the total left hip arthroplasty is anatomic. There is no periprosthetic fract ure or unexpected radiopaque foreign body. [address] are in place. Surgical drains are note d. IMPRESSION: Expected findings following total left hip arthroplasty. ACT 112: Negative or not required by law. Electronically signed by: Jd Gonzalez M.D. 07/24/2020 5:37 PM
[2020-07-24] MEDS ORDERED: ACETAMINOPHEN 1000 MG/100 ML IV IV ONE (18:03)
[2020-07-24] MEDS ORDERED: ACETAMINOPHEN 1,000 MG/100 ML VIAL IV STA (18:09)
--- NOTE | 2020-07-24 18:11 | Anesthesiology Progress Note ---
Date of Service July 24, 2020 Anesthesia Post Procedure Vital Signs Vital Signs: Temp Pulse Pulse Pulse Resp BP Pulse Ox 07/24/20 18:05 100 H 13 134/89 96 07/24/20 17:55 36.9 C 101 H 20 118/83 96 07/24/20 17:45 98 H 17 115/96 95 07/24/20 17:35 94 H 17 109/82 95 07/24/20 17:25 97 H 21 123/77 92 07/24/20 17:15 97 H 20 114/70 92 07/24/20 17:08 36.8 C 100 H 16 107/77 92 07/24/20 12:56 105 H 18 122/90 93 07/24/20 12:34 37.5 C 103 H 22 147/107 H 94 07/24/20 07:40 37.1 C 103 H 18 133/86 94 07/23/20 23:40 92 07/23/20 23:35 37.4 C 111 H 22 145/110 H 86 L Pain Intensity Left Hip: Pain Intensity: 0 Transfer of Care Handoff Completed per policy Notes Mental Status: alert / awake / arousable and participated in evaluation Patient Amnestic to Procedure: Yes Nausea / Vomiting: adequately controlled Pain: adequately controlled Airway Patency, RR, SpO2: stable & adequate BP & HR: stable & adequate Hydration State: stable & adequate Anesthetic Complications: no major complications apparent
[2020-07-24] MEDS ORDERED: bisacodyL 10 MG SUPP PR PRN (18:27)
[2020-07-24] MEDS ORDERED: MAGNESIUM HYDROXIDE SUSP 30 ML UDC PO PRN (18:27)
[2020-07-24] MEDS ORDERED: oxyCODONE HCL IR 5 MG TAB (IMMEDIATE RELEASE) PO PRN (18:27)
[2020-07-24] MEDS ORDERED: Nursing to Pharmacy Communication SCH (18:30)
[2020-07-24] MEDS: SODIUM CHLORIDE 0.9% 1000ML 1,000 ML IV SCH (18:36)
[2020-07-24] MEDS: WARFARIN SOD 5 MG TAB PO SCH (20:07)
[2020-07-24] MEDS: DOCUSATE SODIUM 100 MG CAP PO SCH (21:45)
[2020-07-24] MEDS: AMOXICILLIN 500 MG CAP PO SCH (21:45)
[2020-07-24] MEDS: SENNA 8.6 MG TAB PO SCH (21:47)
[2020-07-24] MEDS: ceFAZolin 2000MG 2,000 MG/15 ML SYR IV SCH (22:07)
[2020-07-25] MEDS: LORazepam 0.5 MG TAB PO PRN ×4 (04:14→20:11)
[2020-07-25] MEDS: SODIUM CHLORIDE 0.9% 1000ML 1,000 ML IV SCH ×2 (04:37→14:26)
[2020-07-25 06:16] LABS: Basophils # (auto) 0.01 K/uL (0-0.2); Basophils % (auto) 0.1 %; Eosinophils # (auto) 0.06 K/uL (0-0.5); Eosinophils % (auto) 0.6 %; Hemoglobin 11.6 g/dL (14.0-18.0); Immature Granulocytes # (auto) 0.03 K/uL (0.00-0.02); Immature Granulocytes % (auto) 0.3 %; Lymphocytes # (auto) 0.74 K/uL (1.2-3.4); Lymphocytes % (auto) 7.1 %; Mean Corpuscular Hemoglobin 33.6 pg (25-34); Mean Corpuscular Hgb Conc 33.1 g/dL (32-36); Mean Corpuscular Volume 101.4 fL (80-100); Mean Platelet Volume 9.5 fL (7.4-10.4); Monocytes # (auto) 1.15 K/uL (0.11-0.59); Neutrophils % (auto) 80.9 %; Platelet Count 146 K/uL (130-400); RDW Coefficient of Variation 13.2 % (11.5-14.5); RDW Standard Deviation 49.1 fL (36.4-46.3); Red Blood Count 3.45 M/uL (4.7-6.1); White Blood Count 10.49 K/uL (4.8-10.8)
[2020-07-25] MEDS: ceFAZolin 2000MG 2,000 MG/15 ML SYR IV SCH (06:17)
[2020-07-25 06:23] LABS: INR 1.1 (0.9-1.1); Prothrombin Time 11.6 Seconds (9.0-12.0)
[2020-07-25 06:50] LABS: Albumin Level 2.7 gm/dl (3.4-5.0); BUN Creatinine Ratio 22.1 (10-20); Creatinine Clr Calc Pharmacy 91.2 ml/min; Est GFR (African American) 90.2; Est GFR (Non-African American) 77.9; Potassium 4.3 mmol/L (3.5-5.1)
[2020-07-25 07:28] LABS: Albumin Globulin Ratio 0.8 (0.9-2); Bilirubin,Total 1.1 mg/dl (0.2-1); Globulin 3.4 gm/dl (2.5-4.0); Total Protein 6.1 gm/dl (6.4-8.2)
[2020-07-25] MEDS: POLYETHYLENE (MIRALAX) 17 GM PACK PO SCH (08:29)
[2020-07-25] MEDS: MULTIVITAMIN TAB PO SCH (08:31)
[2020-07-25] MEDS: ATORVASTATIN 20 MG TAB PO SCH (08:31)
[2020-07-25] MEDS: TAMSULOSIN HCL 0.4 MG CAP PO SCH (08:32)
[2020-07-25] MEDS: PHENYTOIN SODIUM ER 100 MG CAP PO SCH ×2 (08:32→19:58)
[2020-07-25] MEDS: lamoTRIgine 25 MG TAB PO SCH ×2 (08:32→19:59)
[2020-07-25] MEDS: DOCUSATE SODIUM 100 MG CAP PO SCH ×2 (08:32→19:58)
[2020-07-25] MEDS: lamoTRIgine 100 MG TAB PO SCH ×2 (08:32→19:59)
--- NOTE | 2020-07-25 08:45 | Hospitalist Progress Note ---
Date of Service July 25, 2020 Assessment & Plan (1) Closed left hip fracture: * X-ray shows acute displaced subcapital left hip fracture. Numbness/tingling in legs and ordered B12, low and given IM and continued oral supplementation. Could contibute to fall * Orthopedics consult -- appreciate assistance * Pain control * INR reversed for surgery * POD #1 s/p LEFT DIMAS with Dr. Leija on 07/24. EBL 200cc. * H/h 11.6/35 -- acute blood loss anemia from surgery * PT/OT evals pending -- [facility] * Holding PO oxycodone due to cognitive/hallucinations as described in HPI and will utilize tramadol prn to see if any better relief/less confusion * Resumed coumadin for DVT prophylaxis and INR on am labs 1.1. Repeat in AM (2) Anemia: * Acute blood loss anemia from surgery as above and given IVF x1L in ER. * Did have some macrocytosis and B12/folate added to labs * Low B12. Ordered IM injection and will need to continue replacement once taking PO * CBC in AM (3) Generalized epilepsy: * Due to his cancer resections. No seizures on present medication regimen. * Continue home lamotrigine, phenytoin * Ativan PRN (4) Hx of brain cancer: * S/p two resections at [place] which left him hemiparetic. Also has had multiple bouts of meningitis. * Continue amoxicillin prophylaxis * As above for epilepsy (5) CKD (chronic kidney disease) stage 2, GFR 60-89 ml/min: * Cr 1.02. Baseline near ~1 * BMP in AM (6) Elevated liver enzymes: * Tbili 1.1 but patient denies pain. Chronic elevation in alk phos, actually down 141 from prior. AST now 98. Will obtain RUQ US * Trend on AM labs (7) B12 deficiency: * As above (8) Kidney stone on left side: * Hx of such, L sided. UA did note blood, RBC. No CVA tenderness but should have follow up outpatient (9) DVT of leg (deep venous thrombosis): * Multiple DVTs, though last one was in 02/2019 that I see. No DVT on repeat Doppler in 09/2019. * Reverse warfarin for OR as above. * INR 1.1 and coumadin resumed Will also order overnight pulse ox for probable sleep apnea. Patient was able to be weaned to room air. 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 Pain was controlled well this morning but increased after working with therapy and was give pain medications. Per , these tend to cause patient to have hallucinations. Discussed we will utilize tramadol and avoid that in the future. Discussed low B12 levels and this may contribute to neuropathy/falls/cognitive changes as well in addition to his baseline given medical history. Patient states eating/drinking without difficulty but his mouth is dry. Currently NPO for US JOAO. Plans for rehab at discharge. getting call from [employer] [employer] during conversation. Discussed low O2 sats and patient able to maintain 93% on RA during encounter. does state that patient does get easily winded with exertion recently but no history of CHF. Will obtain ECHO. Patient does have issues with daytime somnolence and apnea with sleeping and l ips turning blue per . Discussed ordering overnight pulse ox. Also without shoe for foot drop and patient wondered if would be covered by insurance. Denies fever, chill, chest pain, shortness of breath, nausea. Mckeon with concentrated urine. Review of Systems Review of Systems: All systems reviewed & are unremarkable except as noted in HPI & below Physical Exam Constitutional: WD/WN, vitals as above + obese and comfortable; no acute distress Eyes: + anicteric sclerae and PERRL; no conjunctival abnormality ENMT: Mallampati Class: III dry mm Neck: normal visual inspection and trachea midline Respiratory: normal respiratory effort; no respiratory distress Auscultation: + diminished lung sounds and + crackles (bibasilar); no wheezes Cardiovascular: Rate/Rhythm: regular rate and regular rhythm Heart Sounds: no murmur Extremities: normal capillary refill Gastrointestinal (Abdomen): Inspection/Auscultation: abdomen normal to inspection, + abdomen distended and normal bowel sounds Percussion/Palpation: abdomen nontender and no guarding Musculoskeletal: dressing to L hip c/d/i. tender to palpation of lateral thigh around incision. NVI L foot drop noted -- chronic pulses palpable Neurologic: sensation intact Psychiatric: Orientation: alert, oriented to person, oriented to place and cooperative Genitourinary: mckeon draining concentrated urine Results & Data Results & Data ([facility]) Vital Signs (Past 12 Hours) Vital Signs Temp Pulse Resp BP Pulse Ox 07/25/20 07:25 36.9 C 99 H 16 111/80 96 07/25/20 03:58 37.2 C 101 H 18 120/73 95 07/25/20 00:21 36.9 C 99 H 20 131/81 97 07/24/20 21:32 37.1 C 92 H 18 124/82 96 Laboratory Results 07/25/20 07/25/20 07/25/20 Range/Units 05:49 05:49 05:49 WBC 10.49 (4.8-10.8) K/uL RBC 3.45 L (4.7-6.1) M/uL Hgb 11.6 L (14.0-18.0) g/dL Hct 35.0 L (42-52) % MCV 101.4 H (80-100) fL MCH 33.6 (25-34) pg MCHC 33.1 (32-36) g/dL RDW Std Deviation 49.1 H (36.4-46.3) fL RDW Coeff of Paul 13.2 (11.5-14.5) % Plt Count 146 (130-400) K/uL MPV 9.5 (7.4-10.4) fL Immature Gran % (Auto) 0.3 % Neut % (Auto) 80.9 % Lymph % (Auto) 7.1 % Bucks % (Auto) 11.0 % Eos % (Auto) 0.6 % Baso % (Auto) 0.1 % Neut # (Auto) 8.50 H (1.4-6.5) K/uL Lymph # (Auto) 0.74 L (1.2-3.4) K/uL Bucks # (Auto) 1.15 H (0.11-0.59) K/uL Eos # (Auto) 0.06 (0-0.5) K/uL Baso # (Auto) 0.01 (0-0.2) K/uL Immature Gran # (Auto) 0.03 H (0.00-0.02) K/uL PT 11.6 (9.0-12.0) Seconds INR 1.1 (0.9-1.1) Sodium 139 (136-145) mmol/L Potassium 4.3 (3.5-5.1) mmol/L Chloride 106 (98-107) mmol/L Carbon Dioxide 29 (21-32) mmol/L Anion Gap 4.0 (3-11) BUN 23 H (7-18) mg/dl Creatinine 1.02 (0.6-1.4) mg/dl Est Cr Clr Drug Dosing 91.2 ml/min Est GFR ( Amer) 90.2 Est GFR (Non-Af Amer) 77.9 BUN/Creatinine Ratio 22.1 H (10-20) Glucose 111 H (70-99) mg/dl Calcium 8.0 L (8.5-10.1) mg/dl Magnesium 2.0 (1.8-2.4) mg/dl Total Bilirubin 1.1 H D (0.2-1) mg/dl AST 98 H (15-37) U/L ALT 29 (12-78) U/L Alkaline Phosphatase 141 H (45-117) U/L NT-Pro-B Natriuret Pep (0-900) pg/ml Total Protein 6.1 L D (6.4-8.2) gm/dl Albumin 2.7 L (3.4-5.0) gm/dl Globulin 3.4 (2.5-4.0) gm/dl Albumin/Globulin Ratio 0.8 L (0.9-2) Vitamin B12 (211-911) pg/ml Folate (>5.38) ng/ml Urine Color Urine Appearance (Clear) Urine pH (4.5-7.5) Ur Specific [place] (1.000-1.030) Urine Protein (Negative) Urine Glucose (UA) (Negative) Urine Ketones (Negative) Urine Blood (Negative) Urine Nitrite (Negative) Urine Bilirubin (Negative) Urine Urobilinogen (Negative) Ur Leukocyte Esterase (Negative) Urine WBC (Auto) (0-5) /hpf Urine RBC (Auto) (0-4) /hpf U Hyaline Cast (Auto) (0-5) /lpf U Epithel Cells (Auto) (0-5) /lpf Urine Bacteria (Auto) (Negative) Blood Type Antibody Screen 1107/24/20 07/24/20 Range/Units 12:15 10:50 08:26 WBC (4.8-10.8) K/uL RBC (4.7-6.1) M/uL Hgb (14.0-18.0) g/dL Hct (42-52) % MCV (80-100) fL MCH (25-34) pg MCHC (32-36) g/dL RDW Std Deviation (36.4-46.3) fL RDW Coeff of Paul (11.5-14.5) % Plt Count (130-400) K/uL MPV (7.4-10.4) fL Immature Gran % (Auto) % Neut % (Auto) % Lymph % (Auto) % Bucks % (Auto) % Eos % (Auto) % Baso % (Auto) % Neut # (Auto) (1.4-6.5) K/uL Lymph # (Auto) (1.2-3.4) K/uL Bucks # (Auto) (0.11-0.59) K/uL Eos # (Auto) (0-0.5) K/uL Baso # (Auto) (0-0.2) K/uL Immature Gran # (Auto) (0.00-0.02) K/uL PT 14.2 H (9.0-12.0) Seconds INR 1.4 H (0.9-1.1) Sodium (136-145) mmol/L Potassium (3.5-5.1) mmol/L Chloride (98-107) mmol/L Carbon Dioxide (21-32) mmol/L Anion Gap (3-11) BUN (7-18) mg/dl Creatinine (0.6-1.4) mg/dl Est Cr Clr Drug Dosing ml/min Est GFR ( Amer) Est GFR (Non-Af Amer) BUN/Creatinine Ratio (10-20) Glucose (70-99) mg/dl Calcium (8.5-10.1) mg/dl Magnesium (1.8-2.4) mg/dl Total Bilirubin (0.2-1) mg/dl AST (15-37) U/L ALT (12-78) U/L Alkaline Phosphatase (45-117) U/L NT-Pro-B Natriuret Pep (0-900) pg/ml Total Protein (6.4-8.2) gm/dl Albumin (3.4-5.0) gm/dl Globulin (2.5-4.0) gm/dl Albumin/Globulin Ratio (0.9-2) Vitamin B12 205 L (211-911) pg/ml Folate 10.30 (>5.38) ng/ml Urine Color Dark Yellow Urine Appearance Clear (Clear) Urine pH 5.0 (4.5-7.5) Ur Specific [place] 1.027 (1.000-1.030) Urine Protein Negative (Negative) Urine Glucose (UA) Negative (Negative) Urine Ketones Negative (Negative) Urine Blood 2+ H (Negative) Urine Nitrite Negative (Negative) Urine Bilirubin Negative (Negative) Urine Urobilinogen Negative (Negative) Ur Leukocyte Esterase Negative (Negative) Urine WBC (Auto) 1-5 (0-5) /hpf Urine RBC (Auto) 10-30 H (0-4) /hpf U Hyaline Cast (Auto) 1-5 (0-5) /lpf U Epithel Cells (Auto) 10-20 H (0-5) /lpf Urine Bacteria (Auto) Negative (Negative) Blood Type Antibody Screen 07/24/20 07/24/20 Range/Units 07:16 06:10 WBC (4.8-10.8) K/uL RBC (4.7-6.1) M/uL Hgb (14.0-18.0) g/dL Hct (42-52) % MCV (80-100) fL MCH (25-34) pg MCHC (32-36) g/dL RDW Std Deviation (36.4-46.3) fL RDW Coeff of Paul (11.5-14.5) % Plt Count (130-400) K/uL MPV (7.4-10.4) fL Immature Gran % (Auto) % Neut % (Auto) % Lymph % (Auto) % Bucks % (Auto) % Eos % (Auto) % Baso % (Auto) % Neut # (Auto) (1.4-6.5) K/uL Lymph # (Auto) (1.2-3.4) K/uL Bucks # (Auto) (0.11-0.59) K/uL Eos # (Auto) (0-0.5) K/uL Baso # (Auto) (0-0.2) K/uL Immature Gran # (Auto) (0.00-0.02) K/uL PT (9.0-12.0) Seconds INR (0.9-1.1) Sodium (136-145) mmol/L Potassium (3.5-5.1) mmol/L Chloride (98-107) mmol/L Carbon Dioxide (21-32) mmol/L Anion Gap (3-11) BUN (7-18) mg/dl Creatinine (0.6-1.4) mg/dl Est Cr Clr Drug Dosing ml/min Est GFR ( Amer) Est GFR (Non-Af Amer) BUN/Creatinine Ratio (10-20) Glucose (70-99) mg/dl Calcium (8.5-10.1) mg/dl Magnesium (1.8-2.4) mg/dl Total Bilirubin (0.2-1) mg/dl AST (15-37) U/L ALT (12-78) U/L Alkaline Phosphatase (45-117) U/L NT-Pro-B Natriuret Pep 428 (0-900) pg/ml Total Protein (6.4-8.2) gm/dl Albumin (3.4-5.0) gm/dl Globulin (2.5-4.0) gm/dl Albumin/Globulin Ratio (0.9-2) Vitamin B12 (211-911) pg/ml Folate (>5.38) ng/ml Urine Color Urine Appearance (Clear) Urine pH (4.5-7.5) Ur Specific [place] (1.000-1.030) Urine Protein (Negative) Urine Glucose (UA) (Negative) Urine Ketones (Negative) Urine Blood (Negative) Urine Nitrite (Negative) Urine Bilirubin (Negative) Urine Urobilinogen (Negative) Ur Leukocyte Esterase (Negative) Urine WBC (Auto) (0-5) /hpf Urine RBC (Auto) (0-4) /hpf U Hyaline Cast (Auto) (0-5) /lpf U Epithel Cells (Auto) (0-5) /lpf Urine Bacteria (Auto) (Negative) Blood Type O Positive Antibody Screen NEGATIVE PG Care Time/CCT Total # of Minutes Spent Total Time Spent with Patient: Total time spent is greater than 50% in coordination of care (as documented) at patient's floor/unit and/or counseling patient: Coding Level of Care Code 16624 Subseq Hosp Care Lvl 3 Diagnoses Closed left hip fracture S72.002A Anemia D64.9 Generalized epilepsy G40.309 Hx of brain cancer Z85.841 CKD (chronic kidney disease) stage 2, GFR 60-89 ml/min N18.2 Elevated liver enzymes R74.8 B12 deficiency E53.8 Kidney stone on left side N20.0 DVT of leg (deep venous thrombosis) I82.409
[2020-07-25] MEDS: ACETAMINOPHEN 500 MG TAB PO PRN (10:04)
[2020-07-25] MEDS: traMADol HCL 50 MG TABLET PO PRN ×2 (13:47→22:18)
--- NOTE | 2020-07-25 16:08 | Ultrasound Report ---
Biliary ultrasound CLINICAL HISTORY: elevated liver enzymes COMPARISON STUDY: CT scan dated January 21, 2020 FINDINGS: The pancreas was not visualized. The gallbladder was mildly distended. No calculi were visualized. There is minimal sludge present. Th ere is no wall thickening. Technologist reports a negative sonographic Leonard sign. There is no ductal dilatation. The common bile duct measured 4 mm. There is no right-sided hydronephrosis No focal hepatic masses were visualized. Liver echotexture was slightly heterogeneous. IMPRESSION: 1. Slight heterogeneity in hepatic echotexture. No discrete masses identified 2. No evidence of ductal dilatation 3. Mild gallbladder distention. No calculi identified. Minimal gallbladder sludge. ACT 112: Negative or not required by law. Electronically signed by: Daren Manrique M.D. 07/25/2020 4:07 PM
[2020-07-25] MEDS ORDERED: CALCIUM CARBONATE 500 MG CHEWABLE TAB PO PRN (16:34)
[2020-07-25] MEDS: WARFARIN SOD 5 MG TAB PO SCH (17:20)
[2020-07-25] MEDS: HYDROCODONE/ACETAMOPHEN 5/325MG TAB PO PRN (17:20)
[2020-07-25] MEDS: AMOXICILLIN 500 MG CAP PO SCH (17:20)
[2020-07-25] MEDS: SENNA 8.6 MG TAB PO SCH (20:00)
[2020-07-25] MEDS: KETOROLAC TROMETHAMINE 15 MG/ML VIAL IV PRN (22:17)
[2020-07-26 07:57] LABS: Hematocrit (blood only) 30.3 % (42-52); Hemoglobin 10.1 g/dL (14.0-18.0); Mean Corpuscular Hemoglobin 33.4 pg (25-34); Mean Corpuscular Hgb Conc 33.3 g/dL (32-36); Mean Corpuscular Volume 100.3 fL (80-100); Mean Platelet Volume 9.5 fL (7.4-10.4); Platelet Count 153 K/uL (130-400); RDW Coefficient of Variation 13.3 % (11.5-14.5); Red Blood Count 3.02 M/uL (4.7-6.1); White Blood Count 9.92 K/uL (4.8-10.8)
[2020-07-26 08:06] LABS: INR 1.1 (0.9-1.1); Prothrombin Time 11.7 Seconds (9.0-12.0)
[2020-07-26 08:26] LABS: Albumin Level 2.7 gm/dl (3.4-5.0); BUN Creatinine Ratio 22.2 (10-20); Bilirubin Direct 0.3 mg/dl (0-0.2); Calcium 8.2 mg/dl (8.5-10.1); Creatinine Clr Calc Pharmacy 117.7 ml/min; Est GFR (African American) 110.8; Est GFR (Non-African American) 95.6; Potassium 3.9 mmol/L (3.5-5.1)
[2020-07-26] MEDS: SODIUM CHLORIDE 0.9% 1000ML 1,000 ML IV SCH (08:29)
--- NOTE | 2020-07-26 08:29 | Orthopedic Progress Note ---
Date of Service July 26, 2020 Assessment & Plan (1) Closed left hip fracture: Admission and Anticipated Discharge Date Admission Date: 64 yo male stable POD #2 s/p left DIMAS secondary to fracture 1. Med management 2. DVT prophylaxis- resume Coumadin, SCDs 3. PT/OT 4. D/C planning- pt likely will need rehab Subjective Pt resting in bed, seems a bit more confused this AM, did not do well with PT per nurse Physical Exam Physical Exam: Prevena dressing in place left hip, thigh soft, toes mobile at baseline Results & Data ([facility]) Vital Signs (Past 12 Hours) Vital Signs Pulse Pulse Ox 07/26/20 03:42 110 H 93 07/26/20 00:00 117 H 94 07/25/20 22:05 110 H 91 Laboratory Results 07/26/20 07/26/20 07/26/20 Range/Units 07:04 07:04 07:04 WBC 9.92 (4.8-10.8) K/uL RBC 3.02 L (4.7-6.1) M/uL Hgb 10.1 L (14.0-18.0) g/dL Hct 30.3 L (42-52) % MCV 100.3 H (80-100) fL MCH 33.4 (25-34) pg MCHC 33.3 (32-36) g/dL RDW Std Deviation 48.0 H (36.4-46.3) fL RDW Coeff of Paul 13.3 (11.5-14.5) % Plt Count 153 (130-400) K/uL MPV 9.5 (7.4-10.4) fL PT 11.7 (9.0-12.0) Seconds INR 1.1 (0.9-1.1) Sodium 138 (136-145) mmol/L Potassium 3.9 (3.5-5.1) mmol/L Chloride 105 (98-107) mmol/L Carbon Dioxide 28 (21-32) mmol/L Anion Gap 5.0 (3-11) BUN 18 (7-18) mg/dl Creatinine 0.79 (0.6-1.4) mg/dl Est Cr Clr Drug Dosing 117.7 ml/min Est GFR ( Amer) 110.8 Est GFR (Non-Af Amer) 95.6 BUN/Creatinine Ratio 22.2 H (10-20) Glucose 108 H (70-99) mg/dl Calcium 8.2 L (8.5-10.1) mg/dl Total Bilirubin Pending Direct Bilirubin 0.3 H (0-0.2) mg/dl AST 94 H (15-37) U/L ALT 22 (12-78) U/L Alkaline Phosphatase Pending Total Protein Pending Albumin 2.7 L (3.4-5.0) gm/dl
[2020-07-26 08:30] LABS: Bilirubin,Total 0.7 mg/dl (0.2-1); Total Protein 6.2 gm/dl (6.4-8.2)
[2020-07-26] MEDS: CYANOCOBALAMIN 500 MCG TABLET (VITAMIN B-12) PO SCH (08:30)
[2020-07-26] MEDS: PHENYTOIN SODIUM ER 100 MG CAP PO SCH ×2 (08:30→21:22)
[2020-07-26] MEDS: KETOROLAC TROMETHAMINE 15 MG/ML VIAL IV PRN ×2 (08:30→15:18)
[2020-07-26] MEDS: lamoTRIgine 100 MG TAB PO SCH ×2 (08:30→21:22)
[2020-07-26] MEDS: traMADol HCL 50 MG TABLET PO PRN ×3 (08:30→19:40)
[2020-07-26] MEDS: MULTIVITAMIN TAB PO SCH (08:31)
[2020-07-26] MEDS: TAMSULOSIN HCL 0.4 MG CAP PO SCH (08:31)
[2020-07-26] MEDS: lamoTRIgine 25 MG TAB PO SCH ×2 (08:31→21:22)
[2020-07-26] MEDS: POLYETHYLENE (MIRALAX) 17 GM PACK PO SCH (08:31)
[2020-07-26] MEDS: DOCUSATE SODIUM 100 MG CAP PO SCH ×2 (08:31→21:21)
[2020-07-26] MEDS: ATORVASTATIN 20 MG TAB PO SCH (08:31)
--- NOTE | 2020-07-26 09:04 | Hospitalist Progress Note ---
Date of Service July 26, 2020 Assessment & Plan (1) Closed left hip fracture: * X-ray shows acute displaced subcapital left hip fracture. Numbness/tingling in legs and ordered B12, low and given IM and continued oral supplementation. Could contibute to fall * Orthopedics consult -- appreciate assistance * Pain control * INR reversed for surgery * POD #1 s/p LEFT DIMAS with Dr. Leija on 07/24. EBL 200cc. * H/h 10.1/30.3 -- acute blood loss anemia from surgery * PT/OT evals pending -- pref [facility] at discharge * Holding PO oxycodone due to cognitive/hallucinations as described in HPI and will utilize tramadol prn to see if any better relief/less confusion * Resumed coumadin for DVT prophylaxis and INR on am labs 1.1. Repeat same and expect rise in AM (2) Anemia: * Acute blood loss anemia from surgery as above and given IVF x1L in ER. * Did have some macrocytosis and B12/folate added to labs * Low B12. Ordered IM injection and will need to continue PO replacement * Continue to monitor (3) Generalized epilepsy: * Due to his cancer resections. No seizures on present medication regimen. * Continue home lamotrigine, phenytoin * Ativan PRN (4) Hx of brain cancer: * S/p two resections at [place] which left him hemiparetic. Also has had multiple bouts of meningitis. * Continue amoxicillin prophylaxis * As above for epilepsy (5) CKD (chronic kidney disease) stage 2, GFR 60-89 ml/min: * Cr 0.79. Baseline near ~1 * BMP in AM (6) Elevated liver enzymes: * Tbili 1.1 but patient denies pain. Chronic elevation in alk phos, actually down 141 from prior. AST now 98. * RUQ US with GB sludge, no stones. negative kidd's. * Tbili now wnl and enzymes trending down. * Ammonia also wnl * Continue to monitor (7) B12 deficiency: * As above (8) Kidney stone on left side: * Hx of such, L sided. UA did note blood, RBC. No CVA tenderness but should have follow up outpatient * concentrated urine possible actually kidney stone related * If continues consider consult urology inpatient vs outpatient follow-up (9) DVT of leg (deep venous thrombosis): * Multiple DVTs, though last one was in 02/2019 that I see. No DVT on repeat Doppler in 09/2019. * Reverse warfarin for OR as above. 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 Normal systolic LV function. RV normal in size/function. RV systolic pressure elevated at 30-40mmHg. Grade I diastolic dysfunction. Elevated pulm pressures likely related to untreated AVANI as above Rec follow up with PCP as above Dispo: PT/OT with rec for SNF. Plans for [facility]. Possible discharge tomorrow if medically stable Will need follow up with ortho in 2 weeks outpatient. DVT prophylaxis with usual Coumadin as above Admission and Anticipated Discharge Date Admission Date: July 23, 2020 Subjective Patient evaluated this morning with at bedside. Denies any pain at this current time but did just receive pain medications. Confusion this morning but does seem to be improving slightly as the morning went on. Able to tell me year, month and where he was without difficulty although he does endorse that his had been reminding him of that earlier. States he has issues like this from his brain surgeries. Did discuss with patient and B12 levels could also be contributory and we will continue supplementation. Discussed overnight pulse ox study and that patient would be recommended to have formal sleep study as an outpatient but that we will set him up with O2 for HS for the meantime. asked about specifics of operation and we looked at xray films to her satisfaction. Questions/concerns addressed. Possible d/c to [facility] pending how therapy goes. Patient eating/drinking without difficulty but not much gas. Had been taking miralax outpatient that usually helps but we did discuss pain medications can worsen this and we will add additional measures. He did have history of obstruction, believed last year most recently. Given hypoactive bowel sounds, will obtain KUB to ensure no obstruction, however patient denies abdominal pain, nausea or vomiting at this time. Review of Systems Review of Systems: All systems reviewed & are unremarkable except as noted in HPI & below Physical Exam Constitutional: WD/WN, vitals as above + obese and comfortable; no acute distress Eyes: + anicteric sclerae and PERRL; no conjunctival abnormality ENMT: Mallampati Class: III Neck: normal visual inspection and trachea midline Respiratory: normal respiratory effort; no respiratory distress Auscultation: + diminished lung sounds and + crackles (bibasilar); no wheezes Cardiovascular: Rate/Rhythm: regular rate and regular rhythm Heart Sounds: no murmur Extremities: normal capillary refill Gastrointestinal (Abdomen): Inspection/Auscultation: abdomen normal to inspection, + abdomen distended (more) and + hypoactive bowel sounds Percussion/Palpation: abdomen nontender and no guarding Musculoskeletal: L hip dressing c/d/i. minimally tender to palpation around incision (described as "pressure") NVI pulses palpable Neurologic: moves all extremities and awake Psychiatric: Orientation: alert, oriented to person, oriented to place, oriented to time and cooperative able to tell me he was in the hospital, that it was july and 2019 Genitourinary: mckeon draining concentrated urine Results & Data Results & Data ([facility]) Vital Signs (Past 12 Hours) Vital Signs Temp Pulse Pulse Resp BP Pulse Ox Pulse Ox 07/26/20 08:39 36.9 C 90 17 169/94 H 93 07/26/20 03:42 110 H 93 07/26/20 00:00 117 H 94 07/25/20 22:05 110 H 91 Laboratory Results 07/26/20 07/26/20 07/26/20 Range/Units 07:04 07:04 07:04 WBC 9.92 (4.8-10.8) K/uL RBC 3.02 L (4.7-6.1) M/uL Hgb 10.1 L (14.0-18.0) g/dL Hct 30.3 L (42-52) % MCV 100.3 H (80-100) fL MCH 33.4 (25-34) pg MCHC 33.3 (32-36) g/dL RDW Std Deviation 48.0 H (36.4-46.3) fL RDW Coeff of Paul 13.3 (11.5-14.5) % Plt Count 153 (130-400) K/uL MPV 9.5 (7.4-10.4) fL PT 11.7 (9.0-12.0) Seconds INR 1.1 (0.9-1.1) Sodium 138 (136-145) mmol/L Potassium 3.9 (3.5-5.1) mmol/L Chloride 105 (98-107) mmol/L Carbon Dioxide 28 (21-32) mmol/L Anion Gap 5.0 (3-11) BUN 18 (7-18) mg/dl Creatinine 0.79 (0.6-1.4) mg/dl Est Cr Clr Drug Dosing 117.7 ml/min Est GFR ( Amer) 110.8 Est GFR (Non-Af Amer) 95.6 BUN/Creatinine Ratio 22.2 H (10-20) Glucose 108 H (70-99) mg/dl Calcium 8.2 L (8.5-10.1) mg/dl Total Bilirubin 0.7 (0.2-1) mg/dl Direct Bilirubin 0.3 H (0-0.2) mg/dl AST 94 H (15-37) U/L ALT 22 (12-78) U/L Alkaline Phosphatase 125 H (45-117) U/L Total Protein 6.2 L (6.4-8.2) gm/dl Albumin 2.7 L (3.4-5.0) gm/dl PG Care Time/CCT Total # of Minutes Spent Total Time Spent with Patient: Total time spent is greater than 50% in coordination of care (as documented) at patient's floor/unit and/or counseling patient: Coding Level of Care Code 32366 Subseq Hosp Care Lvl 2 Diagnoses Closed left hip fracture S72.002A Anemia D64.9 Generalized epilepsy G40.309 Hx of brain cancer Z85.841 CKD (chronic kidney disease) stage 2, GFR 60-89 ml/min N18.2 Elevated liver enzymes R74.8 B12 deficiency E53.8 Kidney stone on left side N20.0 DVT of leg (deep venous thrombosis) I82.409 Dyspnea on exertion R06.00
[2020-07-26] MEDS: LORazepam 0.5 MG TAB PO PRN ×2 (09:45→17:56)
[2020-07-26] MEDS: BACLOFEN 10 MG TAB PO PRN (15:19)
--- NOTE | 2020-07-26 15:20 | XRay Report ---
KUB CLINICAL HISTORY: hypoactive bowel sounds COMPARISON STUDY: CT of the abdomen and pelvis January 21, 2020. FINDINGS: Left hip arthroplasty is partially imaged. The bowel gas pattern is within normal limits. T here is gas throughout small and large bowel. No dilated loops are identified on this examination. IMPRESSION: No evidence for a bowel obstruction. ACT 112: Negative or not required by law. Electronically signed by: Jd Gonzalez M.D. 07/26/2020 3:19 PM
[2020-07-26] MEDS ORDERED: bisacodyL 5 MG TABEC PO ONE (16:50)
[2020-07-26] MEDS: WARFARIN SOD 5 MG TAB PO SCH (17:30)
[2020-07-26] MEDS: AMOXICILLIN 500 MG CAP PO SCH (17:30)
[2020-07-26] MEDS: HYDROCODONE/ACETAMOPHEN 5/325MG TAB PO PRN (17:55)
[2020-07-26] MEDS: SENNA 8.6 MG TAB PO SCH (21:23)
[2020-07-27] MEDS ORDERED: bisacodyL 5 MG TABEC PO PRN
[2020-07-27] MEDS: LORazepam 0.5 MG TAB PO PRN ×2 (02:46→08:37)
[2020-07-27] MEDS: SODIUM CHLORIDE 0.9% 1000ML 1,000 ML IV SCH ×2 (04:11→23:39)
[2020-07-27] MEDS: KETOROLAC TROMETHAMINE 15 MG/ML VIAL IV PRN ×3 (04:15→21:49)
[2020-07-27] MEDS: traMADol HCL 50 MG TABLET PO PRN ×4 (04:16→21:47)
[2020-07-27] MEDS: POLYETHYLENE (MIRALAX) 17 GM PACK PO SCH (08:37)
[2020-07-27] MEDS: lamoTRIgine 25 MG TAB PO SCH ×2 (08:38→21:45)
[2020-07-27] MEDS: ATORVASTATIN 20 MG TAB PO SCH (08:38)
[2020-07-27] MEDS: DOCUSATE SODIUM 100 MG CAP PO SCH ×2 (08:38→21:44)
[2020-07-27] MEDS: CYANOCOBALAMIN 500 MCG TABLET (VITAMIN B-12) PO SCH (08:38)
[2020-07-27] MEDS: MULTIVITAMIN TAB PO SCH (08:38)
[2020-07-27] MEDS: lamoTRIgine 100 MG TAB PO SCH ×2 (08:38→21:46)
[2020-07-27] MEDS: PHENYTOIN SODIUM ER 100 MG CAP PO SCH ×2 (08:38→21:45)
[2020-07-27] MEDS: TAMSULOSIN HCL 0.4 MG CAP PO SCH (08:38)
[2020-07-27] MEDS: ACETAMINOPHEN 500 MG TAB PO PRN (08:39)
[2020-07-27 08:40] LABS: Hematocrit (blood only) 29.3 % (42-52); Hemoglobin 9.9 g/dL (14.0-18.0); Mean Corpuscular Hemoglobin 33.6 pg (25-34); Mean Corpuscular Hgb Conc 33.8 g/dL (32-36); Mean Corpuscular Volume 99.3 fL (80-100); Mean Platelet Volume 9.7 fL (7.4-10.4); Platelet Count 158 K/uL (130-400); RDW Coefficient of Variation 13.2 % (11.5-14.5); RDW Standard Deviation 48.2 fL (36.4-46.3); Red Blood Count 2.95 M/uL (4.7-6.1); White Blood Count 7.65 K/uL (4.8-10.8)
[2020-07-27 08:51] LABS: INR 1.2 (0.9-1.1); Prothrombin Time 12.8 Seconds (9.0-12.0)
[2020-07-27 09:21] LABS: Albumin Globulin Ratio 0.7 (0.9-2); Albumin Level 2.5 gm/dl (3.4-5.0); BUN Creatinine Ratio 19.8 (10-20); Bilirubin,Total 0.6 mg/dl (0.2-1); Calcium 8.4 mg/dl (8.5-10.1); Creatinine Clr Calc Pharmacy 129.2 ml/min; Est GFR (African American) 115.1; Est GFR (Non-African American) 99.3; Globulin 3.7 gm/dl (2.5-4.0); Potassium 3.9 mmol/L (3.5-5.1); Total Protein 6.2 gm/dl (6.4-8.2)
[2020-07-27 09:28] LABS: Thyroid Stimulating Hormone 1.25 uIu/ml (0.300-4.500)
--- NOTE | 2020-07-27 09:47 | Orthopedic Progress Note ---
Date of Service July 27, 2020 Assessment & Plan (1) Closed left hip fracture: POD 3 s/p Left DIMAS PT/OT; WBAT LLE. Will order AFO brace to assist with his left foot for ambulation DVT prophylaxis - Warfarin, SCD's,DELMY's Pain management as written. DC planning - [facility] possibly today. Admission and Anticipated Discharge Date Admission Date: July 23, 2020 Subjective POD 3 Pt awake, alert. No complaints currently. Pain controlled at rest. Hip discomfort with getting OOB. Denies SOB,CP,LH. Physical Exam Physical Exam: Prevena intact and functioning. No drainage in collection unit. Drain has been removed. Thigh swollen but soft. Calves soft, NT. Pt with h/o neuro deficit in LLE secondary to back surgery in the past. Currently able to dorsiflex the foot but much less than the right side. States sensation intact. Results & Data ([facility]) Vital Signs (Past 12 Hours) Vital Signs Temp Pulse Resp BP Pulse Ox 07/27/20 07:34 37 C 85 17 132/87 97 07/27/20 02:13 93 07/26/20 22:31 36.9 C 108 H 16 128/74 94
[2020-07-27] MEDS: BACLOFEN 10 MG TAB PO PRN (14:11)
[2020-07-27] MEDS: AMOXICILLIN 500 MG CAP PO SCH (15:54)
[2020-07-27] MEDS: WARFARIN SOD 5 MG TAB PO SCH (15:54)
--- NOTE | 2020-07-27 19:51 | Hospitalist Progress Note ---
Date of Service July 27, 2020 Assessment & Plan (1) Subcapital fracture of left hip: POD #3 with left hip fracture repair with Dr. Cook Continue physical therapy Anticipate discharge to [facility] for rehab Anticipate discharge tomorrow Outpatient follow-up in 2 weeks (2) Anemia: EBL 200 cc Hemoglobin 9.9 g/Isaac Hemodynamically stable Follow serial labs (3) Generalized epilepsy: History of glioblastoma in 2003 with craniotomy Continue home doses of lamotrigine and phenytoin Seizure precautions per protocol No recent history of seizures with current home regimen (4) Hx of brain cancer: Craniotomy in 2003 Seizure history as above Discussed with patient's this evening. She reports him having hallucinations and being more confused than usual. The patient is not on any unusual meds other than home medications We will check a CT of the head without contrast (5) CKD (chronic kidney disease) stage 2, GFR 60-89 ml/min: Creatinine currently at baseline No acute concerns (6) B12 deficiency: Continue cyanocobalamin Outpatient management (7) Hypoxemia: Patient with desaturation at night with nocturnal pulse ox study We will need supplemental oxygen at bedtime on discharge Prior to going home from [facility], patient will need a 6-minute walk test Patient denies history of previous requirement for supplemental oxygen or with pulmonary disease Patient most likely does have obstructive sleep apnea. Has refused polysomnography in the past. Continue rehab as tolerated (8) Dyspnea on exertion: Nocturnal pulse oximetry demonstrates need for supplemental oxygen at night Will need a 6-minute walk test prior to discharge from rehab No acute findings on previous chest x-ray CT abdomen pelvis from January 2020 with no evidence of pulmonary disease Check a CTA of the chest to rule out pulmonary emboli secondary to recent fracture as well as to check pulmonary architecture Echocardiogram completed and shows a preserved left ventricular ejection fraction with no wall motion abnormalities Patient does have a grade 1 diastolic dysfunction and an abnormal relaxation pattern as well as moderate concentric left ventricular hypertrophy (9) DVT prophylaxis: Patient is on warfarin as an outpatient This is been held secondary to fracture of hip This has been restarted. However, INR is 1.2 Start heparin 5000 units subcutaneously every 8 hours until INR is therapeutic Admission and Anticipated Discharge Date Admission Date: July 23, 2020 Supervising Physician Co-Signing Physician Notes Pt admitted s/p hip fracture and repair Apparently some sort of concerns about mental status and respiratory status late last night. This was not d/w me, however management appears appropriate. CT head neg for acute, CTA neg for PE. Subjective Attending: Dr. Mae Cota This is a 64-year-old male that was admitted on 07/23/2020 status post fall. He had a fracture of his left hip. He was taken to the operating room on 07/24/2020 for open reduction and fixation by Dr. Cook. EBL was 200 cc. Patient has been doing fairly well with therapy and is currently being prepped for discharge to [facility]. Patient seen at bedside and denies any significant pain to the hip. He does seem somewhat confused but does have history of craniotomy. He denies any shortness of breath. He has no chest pain or tightness. He has no cough. He denies any nausea or vomiting or diarrhea. He has no other acute complaints. Review of Systems Review of Systems: All systems reviewed & are unremarkable except as noted in Subjective Physical Exam Physical Exam: GENERAL : No acute distress EYES: No icterus, gaze conjugate NOSE: No evidence of epistaxis MOUTH: No lesions or candidiasis NECK: Supple LUNGS: CTA B/L, no wheezes, rales or rhonchi HEART: Regular, rate controlled ABDOMEN: Soft, NT, ND, BS Present EXTREMITIES: No LE edema, pedal pulses intact. He has no significant pain to the hip. Dressing is dry and in place. There are drains in place as well. NEURO: A&OX3 Results & Data Results & Data ([facility]) Vital Signs (Past 12 Hours) Vital Signs Pulse Resp BP Pulse Ox 07/27/20 15:51 93 H 18 123/82 92 Laboratory Results 07/27/20 07:38 07/27/20 07:38 Diagnostic Findings KUB performed 07/26/2020 with no evidence of bowel disease or obstruction PG Care Time/CCT Total # of Minutes Spent Total Time Spent with Patient: Total time spent is greater than 50% in coordination of care (as documented) at patient's floor/unit and/or counseling patient: 40 minutes including discussion with patient's Coding Level of Care Code 43565 Subseq Hosp Care Lvl 3 Diagnoses Subcapital fracture of left hip S72.012A Encounter type: initial encounter Fracture type: closed Anemia D64.9 Generalized epilepsy G40.309 Hx of brain cancer Z85.841 CKD (chronic kidney disease) stage 2, GFR 60-89 ml/min N18.2 B12 deficiency E53.8 Hypoxemia R09.02 Dyspnea on exertion R06.00 DVT prophylaxis Z29.9 Time Spent (min) 40 (1) Subcapital fracture of left hip Encounter type: initial encounter Fracture type: closed Qualified Code(s): S72.012A - Unspecified intracapsular fracture of left femur, initial encounter for closed fracture
[2020-07-27] MEDS ORDERED: OPTIRAY 320 125ml IV ONE (21:22)
[2020-07-27] MEDS: SENNA 8.6 MG TAB PO SCH (21:47)
[2020-07-28] MEDS: traMADol HCL 50 MG TABLET PO PRN ×2 (05:37→15:57)
[2020-07-28] MEDS: KETOROLAC TROMETHAMINE 15 MG/ML VIAL IV PRN ×2 (05:38→15:57)
[2020-07-28 06:24] LABS: INR 1.5 (0.9-1.1); Prothrombin Time 15.8 Seconds (9.0-12.0)
--- NOTE | 2020-07-28 07:22 | CT Scan Report ---
CT angio chest PE protocol HISTORY: 64 years-old Male with PE. Acute shortness of breath TECHNIQUE: Multiple CTA images of the chest were obtained after the intravenous administration of 120 ml Optiray 320. Coronal and sagittal MIPS were obtained from the axial data set and were submitted for review. All measurements were obtained according to NASCET criteria. A dose lowering technique w as utilized adhering to the principles of ALARA. COMPARISON: CTA of the chest 09/21/2016 FINDINGS: Limited study secondary to respiratory motion artifact. CTA: Mild to moderate cardiomegaly. No pericardial effusion. Moderate coronary artery calcifications. No t horacic aortic aneurysm or dissection. Patency of the imaged great vessels. Suboptimal evaluation of the pulmonary artery secondary to contrast bolus timing and respiratory motion artifact. No central p ulmonary emboli are identified. The lobar, segmental and subsegmental branches are not well evaluated . CT CHEST: Unremarkable thyroid. Prominent and mildly enlarged mediastinal lymph nodes measuring up to 10 mm in the subcarinal distribution likely benign and have mildly decreased in size from the 2017 study. No p neumothorax or pleural effusion. Mild linear subsegmental left lung base consolidation with bibasilar groundglass densities suggest atelectasis. No overt pulmonary edema or airspace consolidation typica l for pneumonia. No suspicious pulmonary nodules or masses identified. Central airways are patent. No acute process of the imaged upper abdomen. Unremarkable soft tissues. Degenerative changes of the shoulders and spine. Healed remote right lower rib fractures. There is suggestion of a healed remote medial left clavicular fracture which is new from prior. No acute fracture or suspicious bone lesion identified. IMPRESSION: 1. Limited exam as above. No central pulmonary emboli are identified. 2. Mild mediastinal adenopathy is likely benign and has mildly improved from 2017. 3. No pleural effusion or airspace consolidation typical for pneumonia. ACT 112: Negative or not required by law. The above report was generated using voice recognition software. It may contain grammatical, syntax o r spelling errors. Electronically signed by: José Luis Martinez M.D. 07/28/2020 7:20 AM
--- NOTE | 2020-07-28 07:53 | Orthopedic Progress Note ---
Date of Service July 28, 2020 Assessment & Plan (1) Closed left hip fracture: POD 4 s/p Left DIMAS PT/OT; WBAT LLE. AFO brace to assist with his left foot for ambulation. At bedside. DVT prophylaxis - Warfarin, SCD's,DELMY's Pain management as written. DC planning - [facility] Admission and Anticipated Discharge Date Admission Date: July 23, 2020 Subjective Postop day 4 Patient sleeping upon arrival but easily awoken. States he had an episode of severe pain earlier this morning. He states that when going down for a CT scan, they had put the rail back up on the gurney and it ended up hitting his incision area which caused him a lot of pain. He states has been sore since that time. He had moderate severe pain this morning and was given medication which did help. Currently he appears comfortable. He is very concerned about his pain control. He states that his short-term memory is not as good as it used to be and he might forget to ask for pain medications. He has no other complaints at this time. Denies any shortness of breath, chest pain, lightheadedness. Physical Exam Physical Exam: Pravena wound VAC is intact. Thigh is swollen but soft. Calves are soft nontender. Patient continues to have somewhat of a weak dorsiflexion which she has had for quite some time prior to his hip fracture but he is getting some dorsiflexion of the foot and great toe. Sensation appears intact. Leg lengths appear equal. I can take him through gentle passive range of motion of the left hip and he states that it feels good. Results & Data ([facility]) Vital Signs (Past 12 Hours) Vital Signs Temp Pulse Resp BP Pulse Ox 07/28/20 07:14 37.0 C 112 H 18 167/124 H 94 07/27/20 23:10 37.6 C H 114 H 24 142/97 H 94
--- NOTE | 2020-07-28 07:56 | CT Scan Report ---
CT OF THE HEAD WITHOUT CONTRAST CLINICAL HISTORY: Hallucinations, confusion, hx glioblastoma COMPARISON STUDY: Head CT January 04, 2019 CT DOSE: 1972.19 mGy.cm TECHNIQUE: Helical axial images of the head were obtained without IV contrast. Automated exposure con trol was utilized for the study. A dose lowering technique was utilized adhering to the principles o f ALARA. FINDINGS: A right temporoparietal craniotomy is noted. Extensive encephalomalacia within the right te mporoparietal region is unchanged. Postoperative appearance is unchanged since prior exam of December 25, 2018. Extra-axial hyperdensity is postsurgical. No acute intracranial hemorrhage, midline shift or m ass effect is present. Ventricular system is stable. A few calcifications within the brainstem are no laverne. There are no findings to suggest acute dural sinus thrombosis or acute territorial infarct. Righ t mastoid air cells are opacified. There is fluid within the right middle ear. These findings are unc hanged. There is no calvarial fracture. IMPRESSION: 1. No acute intracranial findings. Stable postoperative findings. No significant change in appearance of the brain. 2. Opacified right mastoid air cells with fluid within the right middle ear which is similar to prior exam. ACT 112: Negative or not required by law. Electronically signed by: Jd Gonzalez M.D. 07/28/2020 7:55 AM
[2020-07-28] MEDS: POLYETHYLENE (MIRALAX) 17 GM PACK PO SCH (08:14)
[2020-07-28] MEDS: CYANOCOBALAMIN 500 MCG TABLET (VITAMIN B-12) PO SCH (08:14)
[2020-07-28] MEDS: DOCUSATE SODIUM 100 MG CAP PO SCH (08:14)
[2020-07-28] MEDS: ATORVASTATIN 20 MG TAB PO SCH (08:14)
[2020-07-28] MEDS: PHENYTOIN SODIUM ER 100 MG CAP PO SCH (08:14)
[2020-07-28] MEDS: TAMSULOSIN HCL 0.4 MG CAP PO SCH (08:14)
[2020-07-28] MEDS: ACETAMINOPHEN 500 MG TAB PO PRN (08:14)
[2020-07-28] MEDS: lamoTRIgine 100 MG TAB PO SCH (08:14)
[2020-07-28] MEDS: lamoTRIgine 25 MG TAB PO SCH (08:14)
[2020-07-28] MEDS: BACLOFEN 10 MG TAB PO PRN (08:14)
[2020-07-28] MEDS: MULTIVITAMIN TAB PO SCH (08:15)
--- NOTE | 2020-07-28 08:47 | XRay Report ---
XR hip LT min 2V CLINICAL HISTORY: increased hip pain post op COMPARISON: Left hip radiographs July 24, 2020. FINDINGS: Alignment of the total left hip arthroplasty is anatomic. No periprosthetic fracture is no laverne. Hardware is intact. There are skin matthew. No unexpected radiopaque foreign bodies are noted. [address] are in place. IMPRESSION: Expected findings following total left hip arthroplasty. ACT 112: Negative or not required by law. Electronically signed by: Jd Gonzalez M.D. 07/28/2020 8:45 AM
--- NOTE | 2020-07-28 15:11 | Discharge Summary ---
Date of Service July 28, 2020 Admission HPI Per Admitting Provider 64yo M w/ hx of glioblastoma s/p 2 resections in 2003 & 2006 with resulting hemiparesis and seizures who presents with left hip fracture. The patient reports that he has some foot drop from neuropathy and he reports that he simply tripped on a step and fell down. He did not strike his head and did not lose consciousness. He also had no signs or symptoms of a seizure. He reports extreme left leg pain at this time. Otherwise, he cannot really complete a ROS due to his left leg pain. Discharge Data Allergies Allergy/AdvReac Type Severity Reaction Status Date / Time No Known Allergies Allergy ` Verified 07/23/20 13:35 Consultations 07/23/20 13:04 ED Decision to Admit Stat 07/23/20 15:35 Consult Orthopedic Surgery Routine 07/25/20 08:00 Consult Case Management - Discharge Planning Routine Procedures Performed Operation Date: 07/24/20 07:00 Actual Procedures p Left Total Hip Arthroplasty - Jorge Leija MD Ordered Studies 07/25/20 08:22 US liver Routine 07/27/20 19:59 CT angio chest PE protocol Urgent CT head/brain wo con Urgent Hospital Course (1) Subcapital fracture of left hip: POD #3 with left hip fracture repair with Dr. Cook Continue physical therapy Anticipate discharge to [facility] for rehab Anticipate discharge tomorrow Outpatient follow-up in 2 weeks (2) Anemia: EBL 200 cc Hemoglobin 9.9 g/Isaac Hemodynamically stable Follow serial labs (3) Generalized epilepsy: History of glioblastoma in 2003 with craniotomy Continue home doses of lamotrigine and phenytoin Seizure precautions per protocol No recent history of seizures with current home regimen (4) Hx of brain cancer: Craniotomy in 2003 Seizure history as above Discussed with patient's this evening. She reports him having hallucinations and being more confused than usual. The patient is not on any unusual meds other than home medications We will check a CT of the head without contrast (5) CKD (chronic kidney disease) stage 2, GFR 60-89 ml/min: Creatinine currently at baseline No acute concerns (6) B12 deficiency: Continue cyanocobalamin Outpatient management (7) Hypoxemia: Patient with desaturation at night with nocturnal pulse ox study We will need supplemental oxygen at bedtime on discharge Prior to going home from [facility], patient will need a 6-minute walk test Patient denies history of previous requirement for supplemental oxygen or with pulmonary disease Patient most likely does have obstructive sleep apnea. Has refused polysomnography in the past. Continue rehab as tolerated (8) Dyspnea on exertion: Nocturnal pulse oximetry demonstrates need for supplemental oxygen at night Will need a 6-minute walk test prior to discharge from rehab No acute findings on previous chest x-ray CT abdomen pelvis from January 2020 with no evidence of pulmonary disease Check a CTA of the chest to rule out pulmonary emboli secondary to recent fracture as well as to check pulmonary architecture Echocardiogram completed and shows a preserved left ventricular ejection fraction with no wall motion abnormalities Patient does have a grade 1 diastolic dysfunction and an abnormal relaxation pattern as well as moderate concentric left ventricular hypertrophy (9) DVT prophylaxis: Patient is on warfarin as an outpatient This is been held secondary to fracture of hip This has been restarted. However, INR is 1.2 Start heparin 5000 units subcutaneously every 8 hours until INR is therapeutic Discharge Plan Discharge Items Patient Disposition: Transfer Inpatient Rehab Fac Reason For Visit: LEFT HIP FRACTURE Discharge Diagnosis: Left Hip Fracture Condition on Discharge: Good Activity: Per Instructions section Weightbearing: Left weightbearing Weightbearing Comment: as tolerated with walker Non-emergency contact: Surgeon Call non-emergency contact if: your pain is not controlled, your wound has increased redness and your wound has increased drainage Follow-up/Referrals: Anjana Villar CRNP [Primary Care Provider] - Jorge Leija MD [Surgeon] - (Follow up in 2 weeks. [phone]) Diet: Heart Healthy Add Attending Provider Instructions: ACTIVITY RECOMMENDATIONS: SELF CARE INSTRUCTIONS AFTER TOTAL HIP REPLACEMENT Until the incision and soft tissues around your hip have healed, there is a possibility that the hip prosthesis could dislocate. A. Observe the following precautions to prevent dislocation: 1. Don't bend your hip greater than 90 degrees. 2. Avoid crossing your legs or ankles while standing or lying. 3. Sit with your feet placed 6 inches apart. 4. When sitting, keep your knees below your hips. Sit on a firm surface, avoid deep, soft chairs and couches. Use an elevated toilet seat in the bathroom. 5. Don't bend over at the waist. Use a long handled shoehorn and a sock aid to help you put on your shoes and socks. A avionics installer can help you picking belt operator objects that are too high or too low to reach. 6. Keep car riding to a minimum for at least one month after surgery. B. Your balance may be shaky for a while. Use crutches or a walker until directed by your doctor. C. Use hand rails when walking on stairs. D. Wear low heeled shoes with non-slip soles. E. Be sure that your floors are free of things that could trip you - throw rugs, electrical cords, small objects. Avoid wet and waxed floors, especially with crutches and canes. F. Try to walk several times a day with rest periods between. G. Continue with all the exercises taught to you in the hospital. Again, make walking a part of your daily routine. SPECIAL CARE INSTRUCTIONS: VERY IMPORTANT TO READ AND REVIEW A. You may still be at risk for phlebitis and blood clots. 1. Wear surgical stockings (DELMY hose) for 2 weeks after surgery to improve circulation and reduce swelling. 2. Resume your Warfarin as directed. . 3. If you are on Warfaring normally, your family doctor/mri tech should monitor your blood work. Expect a phone call the day of or the day a fter bloodwork is drawn to adjust your dosage. B. You must take antibiotics before having dental work, bladder, bowel and other surgery. Your doctor will provide you with a permanent card to carry describing precautions. C. Call [facility] if you have a fever, redness or swelling around the incision, cloudy drainage from incision, or sudden increase in pain in your hip, not relieved by your regular pain medication. D. Please call the office at if you have any concerns or questions about your operation or recovery. * YOU MAY SHOWER, NO TUB BATHS UNTIL CLEARED BY YOUR DOCTOR. * WEAR DELMY HOSE 20 HOURS PER DAY FOR 2 WEEKS. * YOU SHOULD USE A WALKER OR CRUTCHES FOR 2-4 WEEKS. THIS WILL HELP PREVENT STRAIN ON YOUR HIP MUSCLE AND ALLOW IT TO HEAL PROPERLY. YOU MAY WEAN TO A CANE TOLERATED. * MOST PATIENTS WILL HAVE HOME NURSING FOR THERAPY. IF YOU DECIDE TO DO OUTPATIENT PHYSICAL THERAPY, PLEASE SCHEDULE THIS 3 TIMES PER WEEK. * Prevena- This is a large suction dressing covering your incision. This will help pull any excess drainage from the wound and allow your incision to heal properly. You may shower with this if you can keep the unit outside of the shower. If any bleeding or leakage is noted please call your doctor's office. This will remain on your incision for 7 days and then should be removed. This can be done yourself or by the home nursing staff if applicable. The entire unit is disposable once removed. Once removed, keep incision clean and dry. If redness or drainage is noted, please call your surgeon. . FOLLOW UP VISIT: If appointment is not already scheduled: Please call [facility] to make a follow-up appointment for 2 weeks after your surgery at . Stand-Alone Forms: My [facility] [employer] Skilled Items Patient informed of condition?: Yes DNR: No Discharge Level of Care: Acute rehab Communicable Disease: No Discharge Prognosis: Stable Lines: None Urinary Catheter: Yes Medications and DC Order Prescriptions: New warfarin [Jantoven] 2.5 mg Tablet 2.5 mg PO Th@1600 Qty: 30 RF: 0 warfarin 5 mg Tablet 5 mg PO SuMoTuWeFrSa@1600 Qty: 30 RF: 0 bisacodyl 5 mg Tablet,Delayed Release (Dr/Ec) 5 mg PO Q8H PRN (Reason: constipation) Qty: 10 RF: 0 docusate sodium 100 mg Capsule 100 mg PO BID 10 Days Qty: 20 RF: 0 cyanocobalamin (vitamin B-12) 500 mcg Tablet 1,000 mcg PO QAM 30 Days Qty: 60 RF: 0 multivitamin [Daily-Marco] Tablet 1 tab PO QAM Qty: 30 RF: 0 hydrocodone-acetaminophen [[place]] 5-325 mg Tablet 1 tab PO Q4H PRN (Reason: pain) Qty: 18 RF: 0 (DME) Oxygen Home Liters Per Minute 2 ea .Route HS Qty: 1 RF: 0 Continued lorazepam 1 mg tablet 1 mg PO DAILY PRN (Reason: Seizures) 30 Days Qty: 30 RF: 3 lamotrigine 200 mg tablet 200 mg PO BID Qty: 60 RF: 5 phenytoin sodium extended [Dilantin Extended] 100 mg capsule 200 mg PO BID 30 Days Qty: 120 RF: 5 lamotrigine 25 mg tablet 50 mg PO BID Qty: 120 RF: 5 atorvastatin 20 mg tablet 20 mg PO DAILY Qty: 30 RF: 5 amoxicillin 500 mg capsule 500 mg PO DAILY@1600 Qty: 30 RF: 11 Discontinued warfarin 5 mg tablet 5 mg PO .COMPLEX Qty: 90 RF: 3 Discharge Orders: Discharge Order (Routine); Ordered 07/28/20 Ordered By: Gabriel Gupta Admission Data Admit Date/Time: 07/23/20 13:18 Attending Provider: Jorge Leija Admit Provider: Jorge Leija Primary Care Provider: Anjana Villar Other Providers: [facility] ; Jose Metzger ; [facility] Coding Diagnoses Subcapital fracture of left hip S72.012A Encounter type: initial encounter Fracture type: closed Anemia D64.9 Generalized epilepsy G40.309 Hx of brain cancer Z85.841 CKD (chronic kidney disease) stage 2, GFR 60-89 ml/min N18.2 B12 deficiency E53.8 Hypoxemia R09.02 Dyspnea on exertion R06.00 DVT prophylaxis Z29.9
[2020-07-28] MEDS: AMOXICILLIN 500 MG CAP PO SCH (15:57)
[2020-07-28] MEDS: LORazepam 0.5 MG TAB PO PRN (15:57)
[2020-07-28] MEDS: WARFARIN SOD 5 MG TAB PO SCH (15:57)
[2020-07-30] MEDS ORDERED: WARFARIN SOD 2.5 MG TAB PO SCH (16:00)
== END 2020-07-28 16:39 | DRG 521 ==
LOC: ED 11:18 → 3N 13:18 → SUATTDRO 13:18 → 3N 15:15

== ENCOUNTER 2021-01-30 06:37 | Inpatient (IN) ==
--- NOTE | 2021-01-30 07:22 | Emergency Department Note ---
History of Present Illness General Chief complaint: Headache Stated complaint: WEAVER,SICK IN STOMACH,SWELLING Time Seen by Provider: 01/30/21 06:56 Source: patient and family ( who is at the bed) Mode of arrival: ambulatory Limitations: no limitations History of Present Illness Maximum Pain Intensity: 6 This patient has a very complex medical history comes in after having a headache and fall and possible seizure. He has a history of brain surgery for glioblastoma 2003 and also get in 2006. Has baseline left-sided weakness. 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 He has a history of a seizure disorder and takes Dilantin and Lamictal and missed 1 dose 2 days ago. His said that yesterday morning he did not feel well and felt like he got hit by a Skinny truck he had swelling and pain in his left hand and his glasses were bent and she is concerned he could have had a seizure although was not witnessed. His last seizure was a couple months ago. He fell in the garden yesterday as he has chronic problems with his left side being weak. He denies any injury. There is no syncope he said he lost balance. He has no new numbness or weakness. The headache started last night but was worse today behind his eyes she took Tylenol and actually feels pretty good right now. No change in vision. No fever or chills. He has chronic congestion that slightly worse he has some postnasal drip is causing him to have a cough. No chest pain or shortness of breath. He has chronic left lower extremity swelling has had a DVT in the leg and is currently on anticoagulation with Coumadin. His right leg and left hand have been swollen he has pain in his left ring finger. He has not had the Covid vaccine but had Covid back in September. No neck pain or stiffness. Home Medications Medication Instructions Recorded Confirmed Type amoxicillin 500 mg capsule 500 mg PO DAILY@1600 #30 cap 09/02/19 01/30/21 Rx warfarin 2.5 mg tablet 2.5 mg PO .COMPLEX #30 tab 08/26/20 01/30/21 Rx warfarin 5 mg tablet 5 mg PO .COMPLEX #30 tab 08/26/20 01/30/21 Rx lorazepam 1 mg tablet 1 mg PO DAILY PRN 30 Days #30 tab 09/29/20 01/30/21 Rx lamotrigine 200 mg tablet 200 mg PO BID #60 tab 12/14/20 01/30/21 Rx lamotrigine 25 mg tablet 50 mg PO BID #120 tab 12/14/20 01/30/21 Rx phenytoin sodium extended 100 mg 200 mg PO BID 30 Days #120 cap 12/14/20 01/30/21 Rx capsule acetaminophen [Tylenol Extra 500 mg PO Q6H PRN 01/30/21 01/30/21 History Strength] Allergies Allergy/AdvReac Type Severity Reaction Status Date / Time No Known Allergies Allergy ` Verified 01/30/21 09:00 Past Med/Surg History Medical History CKD (chronic kidney disease) stage 2, GFR 60-89 ml/min Closed left clavicular fracture Complex partial seizure DVT of leg (deep venous thrombosis) Fall Hx of brain cancer Glioblastoma Multiforme - 2003 - s/p resection [facility] 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 Small bowel obstruction Surgical History H/O cataract removal with insertion of prosthetic lens H/O shoulder surgery Hx of brain surgery 2003 initial resection for GBM at [facility]; 2006 - 2nd surgery, this time at [facility], ultimately was discovered to have blood clot & scar tissue rather than recurrent cancer Family History Father CHF (congestive heart failure) Myocardial infarction Denies family history of Brain tumor Ovarian cancer Prostate cancer Breast cancer SBO (small bowel obstruction) Colorectal cancer Social History Smoking Status: Never smoker Second Hand Exposure: No; Hx Alcohol Use: No Hx Substance Use: No Preferred Language: Pashto Communication Ability: Effective Communication Ability Comment: 2004-BRAIN TUMOR, LEFT MENTALLY DISABLED 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: No Beliefs That Will Affect Care: None marital status: Current Living Situation: Spouse Current Living Situation Comment: lives in [facility]; 2 children 1st marriage; 2 children 2nd marriage current occupational status: retired Other Information That Helps Us Care for You: 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 Feels Safe at Home: Yes Safety Concerns: Feels Safe At This Time caffeine: No Dental Care, Regularly: Yes Physical Activity Frequency: Does not Exercise Seatbelt Use: never Sunscreen Use: No Assistive Devices: Cane and Glasses Review of Systems A total of 10 systems reviewed and were otherwise negative Physical Exam Vital Signs Vital Signs - 24 hr 01/30/21 06:39 01/30/21 07:00 01/30/21 07:30 Temperature 36.6 C Temperature Source Temporal Artery Scan Pulse Rate 101 H 96 H 93 H Pulse Rate from SpO2 Sensor 90 Respiratory Rate 18 19 22 Respiratory Depth Normal Blood Pressure 129/82 179/127 H 155/109 H Blood Pressure Mean 97 144 124 Blood Pressure Position Sitting Pulse Oximetry 96 93 Oxygen Delivery Method Room Air Sepsis Recent Fever Within 48 Hours No Sepsis New/Unexplained Change in Mental Status No Sepsis Action Taken by Nursing No Action Required 01/30/21 08:13 01/30/21 10:30 01/30/21 11:00 Temperature Temperature Source Pulse Rate 108 H 108 H Pulse Rate from SpO2 Sensor 108 H Respiratory Rate 15 20 Respiratory Depth Blood Pressure 167/105 H 154/99 H Blood Pressure Mean 125 117 Blood Pressure Position Pulse Oximetry 95 90 Oxygen Delivery Method Room Air Sepsis Recent Fever Within 48 Hours Sepsis New/Unexplained Change in Mental Status Sepsis Action Taken by Nursing General: Well developed well nourished not ill-appearing middle-age male who appears in no acute distress, breathing comfortably on room air. Normal speech HEENT: Normal cephalic atraumatic. Pupils are equal round and reactive to light. Extraocular movements are intact. Oropharynx is pink with moist mucous membranes. No swelling of the mouth lips or tongue. Neck: Supple with a midline trachea. No meningeal signs or stiffness, no JVD or bruits. No Stridor. Chest: Clear to auscultation bilaterally. No wheezes or rhonchi. No increased work of breathing. Heart: Regular rate and rhythm without murmurs or gallops. Abdomen: Soft nontender, nondistended without rebound guarding or rigidity. Extremities: No cyanosis. There is 2+ left lower extremity edema which is old and 1+ right lower extremity edema which is new. No calf tenderness or assymetry. There is some mild to moderate left hand swelling and pain in the left ring finger but he has full range of motion. No lacerations. Spine/Back. Non tender to palpation. No CVA tenderness Skin: Good turgor without rashes. Neurologic exam: Cranial nerves two through 12 are intact. Baseline weakness on the left side compared to the right but no acute change according to the patient Course Administered Medications Discontinued Medications Dexamethasone Sodium Phosphate (DexamethasonePf 10 Mg/Ml Vial) 10 mg IV NOW STA Stop: 01/30/21 11:13 Last Admin: 01/30/21 11:33 Dose: 10 mg Documented by: [id number] Admin: 01/30/21 11:32 Dose: 10 mg Documented by: [id number] Phytonadione 10 mg/ Sodium (Chloride) 51 mls @ 102 mls/hr IV ONE STA Stop: 01/30/21 11:15 Last Infusion: 01/30/21 12:43 Dose: 0 mls/hr Documented by: [id number] Admin: 01/30/21 11:54 Dose: 102 mls/hr Documented by: [id number] Acetaminophen (Ofirmev) 1,000 mg in 100 mls @ 400 mls/hr IV NOW STA Stop: 01/30/21 11:15 Last Infusion: 01/30/21 12:44 Dose: 0 mls/hr Documented by: [id number] Admin: 01/30/21 11:33 Dose: 400 mls/hr Documented by: [id number] Cefepime HCl (Maxipime) 2,000 mg in 20 mls @ 5 mls/min IV NOW STA; Protocol Stop: 01/30/21 11:05 Last Admin: 01/30/21 11:33 Dose: 5 mls/min Documented by: [id number] Ampicillin Sodium 2,000 mg/ (Sodium Chloride) 100 mls @ 200 mls/hr IV ONE STA Stop: 01/30/21 11:35 Last Admin: 01/30/21 13:04 Dose: 200 mls/hr Documented by: [id number] Morphine Sulfate (Morphine Sulfate 2 Mg/Ml Carp) 2 mg IV NOW STA Stop: 01/30/21 10:08 Last Admin: 01/30/21 10:19 Dose: 2 mg Documented by: [id number] Ondansetron HCl (Ondansetron Inj 2 Mg/Ml 2 Ml Vial) 4 mg IV NOW STA Stop: 01/30/21 10:08 Last Admin: 01/30/21 10:20 Dose: 4 mg Documented by: [id number] Medical Decision Making Differential Diagnosis Trauma, intracranial hemorrhage, tumor, cancer complication, meningitis, Covid, seizure, electrolyte or metabolic abnormality, orthopedic injury, CHF, , sepsis, infection Medical Records Attestation: I reviewed the patient's medical records. Home Medications Current Medication List: was personally reviewed by me Laboratory Data Attestation: I reviewed the patient's lab results. Result diagrams: 01/30/21 08:25 01/30/21 08:53 Lab Results 01/30/21 01/30/21 01/30/21 Range/Units 08:08 08:25 08:50 WBC 9.04 (4.8-10.8) K/uL RBC 4.70 (4.7-6.1) M/uL Hgb 15.7 (14.0-18.0) g/dL Hct 45.9 (42-52) % MCV 97.7 (80-100) fL MCH 33.4 (25-34) pg MCHC 34.2 (32-36) g/dL RDW Std Deviation 49.5 H (36.4-46.3) fL RDW Coeff of Paul 13.8 (11.5-14.5) % Plt Count 192 (130-400) K/uL MPV 9.9 (7.4-10.4) fL Immature Gran % (Auto) 0.2 % Neut % (Auto) 81.7 % Lymph % (Auto) 9.7 % Summers % (Auto) 7.6 % Eos % (Auto) 0.7 % Baso % (Auto) 0.1 % Neut # (Auto) 7.38 H (1.4-6.5) K/uL Lymph # (Auto) 0.88 L (1.2-3.4) K/uL Summers # (Auto) 0.69 H (0.11-0.59) K/uL Eos # (Auto) 0.06 (0-0.5) K/uL Baso # (Auto) 0.01 (0-0.2) K/uL Immature Gran # (Auto) 0.02 (0.00-0.02) K/uL PT (9.0-12.0) Seconds INR (0.9-1.1) APTT (21.0-31.0) Seconds PTT Ratio Sodium (136-145) mmol/L Potassium (3.5-5.1) mmol/L Chloride (98-107) mmol/L Carbon Dioxide (21-32) mmol/L Anion Gap (3-11) BUN (7-18) mg/dl Creatinine (0.6-1.4) mg/dl Est Cr Clr Drug Dosing ml/min Est GFR ( Amer) ml/min Est GFR (Non-Af Amer) ml/min BUN/Creatinine Ratio (10-20) Glucose (70-99) mg/dl Lactate 1.5 (0.4-2.0) mmol/L Calcium (8.5-10.1) mg/dl Magnesium (1.8-2.4) mg/dl Total Bilirubin (0.2-1) mg/dl AST (15-37) U/L ALT (12-78) U/L Alkaline Phosphatase (45-117) U/L Troponin I (0-0.045) ng/ml NT-Pro-B Natriuret Pep (0-900) pg/ml Total Protein (6.4-8.2) gm/dl Albumin (3.4-5.0) gm/dl Globulin (2.5-4.0) gm/dl Albumin/Globulin Ratio (0.9-2) Procalcitonin (0-0.5) ng/ml Urine Color Urine Appearance (Clear) Urine pH (4.5-7.5) Ur Specific Liberal (1.000-1.030) Urine Protein (Negative) Urine Glucose (UA) (Negative) Urine Ketones (Negative) Urine Blood (Negative) Urine Nitrite (Negative) Urine Bilirubin (Negative) Urine Urobilinogen (Negative) Ur Leukocyte Esterase (Negative) Urine WBC (Auto) (0-5) /hpf Urine RBC (Auto) (0-4) /hpf U Hyaline Cast (Auto) (0-5) /lpf U Epithel Cells (Auto) (0-5) /lpf Urine Bacteria (Auto) (Negative) Phenytoin (10-20) mcg/ml COVID-19 Eval Order Covid19 at [facility] SARS-CoV-2 (PCR) (Negative) 01/30/21 01/30/21 01/30/21 Range/Units 08:50 08:53 08:53 WBC (4.8-10.8) K/uL RBC (4.7-6.1) M/uL Hgb (14.0-18.0) g/dL Hct (42-52) % MCV (80-100) fL MCH (25-34) pg MCHC (32-36) g/dL RDW Std Deviation (36.4-46.3) fL RDW Coeff of Paul (11.5-14.5) % Plt Count (130-400) K/uL MPV (7.4-10.4) fL Immature Gran % (Auto) % Neut % (Auto) % Lymph % (Auto) % Summers % (Auto) % Eos % (Auto) % Baso % (Auto) % Neut # (Auto) (1.4-6.5) K/uL Lymph # (Auto) (1.2-3.4) K/uL Summers # (Auto) (0.11-0.59) K/uL Eos # (Auto) (0-0.5) K/uL Baso # (Auto) (0-0.2) K/uL Immature Gran # (Auto) (0.00-0.02) K/uL PT 32.0 H (9.0-12.0) Seconds INR 3.5 H (0.9-1.1) APTT 52.9 H* (21.0-31.0) Seconds PTT Ratio 2.0 Sodium 138 (136-145) mmol/L Potassium 4.1 (3.5-5.1) mmol/L Chloride 104 (98-107) mmol/L Carbon Dioxide 29 (21-32) mmol/L Anion Gap 5.0 (3-11) BUN 14 (7-18) mg/dl Creatinine 0.93 (0.6-1.4) mg/dl Est Cr Clr Drug Dosing 100.7 ml/min Est GFR ( Amer) 100.2 ml/min Est GFR (Non-Af Amer) 86.5 ml/min BUN/Creatinine Ratio 15.1 (10-20) Glucose 98 (70-99) mg/dl Lactate (0.4-2.0) mmol/L Calcium 9.3 (8.5-10.1) mg/dl Magnesium 2.0 (1.8-2.4) mg/dl Total Bilirubin 0.4 (0.2-1) mg/dl AST 24 (15-37) U/L ALT 34 (12-78) U/L Alkaline Phosphatase 231 H (45-117) U/L Troponin I < 0.015 (0-0.045) ng/ml NT-Pro-B Natriuret Pep 289 (0-900) pg/ml Total Protein 7.9 (6.4-8.2) gm/dl Albumin 3.8 (3.4-5.0) gm/dl Globulin 4.1 H (2.5-4.0) gm/dl Albumin/Globulin Ratio 0.9 (0.9-2) Procalcitonin (0-0.5) ng/ml Urine Color Urine Appearance (Clear) Urine pH (4.5-7.5) Ur Specific Liberal (1.000-1.030) Urine Protein (Negative) Urine Glucose (UA) (Negative) Urine Ketones (Negative) Urine Blood (Negative) Urine Nitrite (Negative) Urine Bilirubin (Negative) Urine Urobilinogen (Negative) Ur Leukocyte Esterase (Negative) Urine WBC (Auto) (0-5) /hpf Urine RBC (Auto) (0-4) /hpf U Hyaline Cast (Auto) (0-5) /lpf U Epithel Cells (Auto) (0-5) /lpf Urine Bacteria (Auto) (Negative) Phenytoin (10-20) mcg/ml COVID-19 Eval Order SARS-CoV-2 (PCR) NEGATIVE (Negative) 01/30/21 01/30/21 01/30/21 Range/Units 08:53 08:53 10:04 WBC (4.8-10.8) K/uL RBC (4.7-6.1) M/uL Hgb (14.0-18.0) g/dL Hct (42-52) % MCV (80-100) fL MCH (25-34) pg MCHC (32-36) g/dL RDW Std Deviation (36.4-46.3) fL RDW Coeff of Paul (11.5-14.5) % Plt Count (130-400) K/uL MPV (7.4-10.4) fL Immature Gran % (Auto) % Neut % (Auto) % Lymph % (Auto) % Summers % (Auto) % Eos % (Auto) % Baso % (Auto) % Neut # (Auto) (1.4-6.5) K/uL Lymph # (Auto) (1.2-3.4) K/uL Summers # (Auto) (0.11-0.59) K/uL Eos # (Auto) (0-0.5) K/uL Baso # (Auto) (0-0.2) K/uL Immature Gran # (Auto) (0.00-0.02) K/uL PT (9.0-12.0) Seconds INR (0.9-1.1) APTT (21.0-31.0) Seconds PTT Ratio Sodium (136-145) mmol/L Potassium (3.5-5.1) mmol/L Chloride (98-107) mmol/L Carbon Dioxide (21-32) mmol/L Anion Gap (3-11) BUN (7-18) mg/dl Creatinine (0.6-1.4) mg/dl Est Cr Clr Drug Dosing ml/min Est GFR ( Amer) ml/min Est GFR (Non-Af Amer) ml/min BUN/Creatinine Ratio (10-20) Glucose (70-99) mg/dl Lactate (0.4-2.0) mmol/L Calcium (8.5-10.1) mg/dl Magnesium (1.8-2.4) mg/dl Total Bilirubin (0.2-1) mg/dl AST (15-37) U/L ALT (12-78) U/L Alkaline Phosphatase (45-117) U/L Troponin I (0-0.045) ng/ml NT-Pro-B Natriuret Pep (0-900) pg/ml Total Protein (6.4-8.2) gm/dl Albumin (3.4-5.0) gm/dl Globulin (2.5-4.0) gm/dl Albumin/Globulin Ratio (0.9-2) Procalcitonin < 0.05 (0-0.5) ng/ml Urine Color Yellow Urine Appearance Clear (Clear) Urine pH 6.0 (4.5-7.5) Ur Specific Liberal 1.023 (1.000-1.030) Urine Protein Negative (Negative) Urine Glucose (UA) Negative (Negative) Urine Ketones Negative (Negative) Urine Blood Trace H (Negative) Urine Nitrite Negative (Negative) Urine Bilirubin Negative (Negative) Urine Urobilinogen Negative (Negative) Ur Leukocyte Esterase Negative (Negative) Urine WBC (Auto) 0 (0-5) /hpf Urine RBC (Auto) 0-4 (0-4) /hpf U Hyaline Cast (Auto) 0 (0-5) /lpf U Epithel Cells (Auto) 5-10 H (0-5) /lpf Urine Bacteria (Auto) Negative (Negative) Phenytoin 15.5 (10-20) mcg/ml COVID-19 Eval Order SARS-CoV-2 (PCR) (Negative) Imaging Data Attestation: I personally reviewed and interpreted this imaging study as follows: My Impression: Chest x-rayno acute infiltrate, failure, pneumothorax seen Radiologist's Impression: Chest X-Ray 01/30/21 07:13 XR chest 1V portable CLINICAL HISTORY: SEPSIS COMPARISON STUDY: 07/23/2020 FINDINGS: The heart is borderline enlarged. There is mild elevation the right hemidiaphragm. There is no failure. There is no focal pulmonary consolidation. There are no pleural effusions. There is a stable linear focus of scar/atelectatic changes at the left lung base.[There is an old healed left clavicular fracture. IMPRESSION: No active disease in the chest. ACT 112: Negative or not required by law. Electronically signed by: Daren Manrique M.D. 01/30/2021 8:[address] 01/30/21 07:13 CT head/brain wo con CLINICAL HISTORY: Severe headache. Trauma. COMPARISON STUDY: 07/27/2020 TECHNIQUE: Axial CT of the brain is performed from the vertex to the skull base. IV contrast was not administered for this examination. A dose lowering technique was utilized adhering to the principles of ALARA. CT DOSE: 614.27 mGy.cm FINDINGS: There are postsurgical changes of a right temporoparietal craniotomy. There is persistent right temporal and parieto-occipital lobe encephalomalacia. There is no CT evidence of acute cortical infarction. There is no acute hemorrhage. There are patchy white matter hypodensities likely on a small vessel basis. There is compensatory dilatation of the right lateral ventricle. There is stable pontine and midbrain calcifications. There is a chronic right mastoid effusion. IMPRESSION: 1. No acute intracranial findings 2. Stable postsurgical changes of a right temporoparietal craniotomy with temporal parietal and occipital lobe encephalomalacia 3. Stable chronic right mastoid effusion. 4. Stable calcifications within the kalpesh and midbrain ACT 112: Negative or not required by law. Electronically signed by: Daren Manrique M.D. 01/30/2021 10:00 AM Hand X-Ray 01/30/21 07:15 XR hand LT min 3V routine CLINICAL HISTORY: Left hand pain status post trauma COMPARISON: August 2017 DISCUSSION: There is an old fourth metacarpal fracture. There are osteoarthritic changes present. There is an old fifth metacarpal deformity. No acute fractures or dislocations are visualized. There are vascular calcifications present. IMPRESSION: 1. Old posttraumatic deformities 2. No acute fractures identified ACT 112: Negative or not required by law. Electronically signed by: Daren Manrique M.D. 01/30/2021 8:46 AM ECG Data Attestation: I personally reviewed and interpreted this ECG as follows: Indication: + weakness Rate (beats per minute): 96 Rhythm: + normal sinus ECG Intervals/blocks: + Normal QRS, + Normal QT and + Normal IL ECG Newell: + Normal ECG ST segments: + Normal ST segments ECG Findings: no PACs and no PVCs Comparison ECG Date: from (07/23/20) Change: no significant change MDM Narrative Patient comes in as described above he has a very complex medical history as outlined above. He has a headache although is feeling better he is afebrile here. Given his history, I extensive work-up was obtained which include Scan of his head, chest x-ray, EKG and multiple blood testing. I also did Covid test him. He is nontoxic and non-lethargic. He has no meningeal signs or stiffness. His CAT scan of his head shows no acute findings specifically is no acute bleed. His white count lactic acid and pro calcitonin are all normal which would go against infection/sepsis. He has no significant electrolyte or metabolic abnormalities. He is therapeutic on his Dilantin. He did miss 1 dose a couple days ago and he may have had a breakthrough seizure yesterday. He started getting a little bit more of a headache and was given morphine 2 mg IV and Zofran 4 mg IV. I talked to the patient and his at length. When he said meningitis before his headaches much worse. I do not think this is likely meningitis however it is difficult to tell with him. Only because he is on Coumadin as an INR of 3.5 is not safe to do an LP at this point. I do think it is most prudent to observe him in the hospital and he may ultimately need an LP if his symptoms get worse or persistent or he gets a fever or inflammatory markers. I did discuss the case with Dr. Joel Burnett who saw the patient in ER for these measures. I did also talk to Dr. Stephane Alford from neurology as per Dr. Burnett's request. Continuous cardiac monitoring: Order was placed in the EMR for continuous cardiac monitoring. The patient was noted to be in sinus tachycardia upon my interpretation with a rate of 100. Impression & Plan Headache, Hx of brain cancer, Chronic anticoagulation, Hemiparesis of left nondominant side, Lab test negative for COVID-19 virus Discharge Plan Visit Data Chief Complaint: Headache Stated Complaint: WEAVER,SICK IN STOMACH,SWELLING ED Provider: Stephane Scott Discharge Problem: Headache, Hx of brain cancer, Chronic anticoagulation, Hemiparesis of left nondominant side, Lab test negative for COVID-19 virus Patient Disposition: Admitted As Inpatient Discharge Instructions Interventions: ED Discharge Assessment Last Done: 01/30/21 12:13 Discharge Problem: Headache Qualifiers: Headache type: unspecified Headache chronicity pattern: acute headache Intractability: not intractable Qualified Code(s): R51.9 - Headache, unspecified Hemiparesis of left nondominant side Qualifiers: Hemiparesis etiology: unspecified Qualified Code(s): G81.94 - Hemiplegia, unspecified affecting left nondominant side
[2021-01-30 08:33] LABS: Basophils # (auto) 0.01 K/uL (0-0.2); Basophils % (auto) 0.1 %; Eosinophils # (auto) 0.06 K/uL (0-0.5); Eosinophils % (auto) 0.7 %; Hematocrit (blood only) 45.9 % (42-52); Hemoglobin 15.7 g/dL (14.0-18.0); Immature Granulocytes # (auto) 0.02 K/uL (0.00-0.02); Immature Granulocytes % (auto) 0.2 %; Lymphocytes # (auto) 0.88 K/uL (1.2-3.4); Lymphocytes % (auto) 9.7 %; Mean Corpuscular Hemoglobin 33.4 pg (25-34); Mean Corpuscular Hgb Conc 34.2 g/dL (32-36); Mean Corpuscular Volume 97.7 fL (80-100); Mean Platelet Volume 9.9 fL (7.4-10.4); Monocytes # (auto) 0.69 K/uL (0.11-0.59); Monocytes % (auto) 7.6 %; Neutrophils # (auto) 7.38 K/uL (1.4-6.5); Neutrophils % (auto) 81.7 %; Platelet Count 192 K/uL (130-400); RDW Coefficient of Variation 13.8 % (11.5-14.5); RDW Standard Deviation 49.5 fL (36.4-46.3); White Blood Count 9.04 K/uL (4.8-10.8)
--- NOTE | 2021-01-30 08:46 | XRay Report ---
XR chest 1V portable CLINICAL HISTORY: SEPSIS COMPARISON STUDY: 07/23/2020 FINDINGS: The heart is borderline enlarged. There is mild elevation the right hemidiaphragm. There is no failure. There is no focal pulmonary consolidation. There are no pleural effusions. There is a st able linear focus of scar/atelectatic changes at the left lung base.[There is an old healed left clav icular fracture. IMPRESSION: No active disease in the chest. ACT 112: Negative or not required by law. Electronically signed by: Daren Manrique M.D. 01/30/2021 8:45 AM
--- NOTE | 2021-01-30 08:47 | XRay Report ---
XR hand LT min 3V routine CLINICAL HISTORY: Left hand pain status post trauma COMPARISON: August 2017 DISCUSSION: There is an old fourth metacarpal fracture. There are osteoarthritic changes present. The re is an old fifth metacarpal deformity. No acute fractures or dislocations are visualized. There are vascular calcifications present. IMPRESSION: 1. Old posttraumatic deformities 2. No acute fractures identified ACT 112: Negative or not required by law. Electronically signed by: Daren Manrique M.D. 01/30/2021 8:46 AM
[2021-01-30 09:22] LABS: Alanine Aminotransferase 34 U/L (12-78); Albumin Level 3.8 gm/dl (3.4-5.0); Aspartate Aminotransferase 24 U/L (15-37); BUN Creatinine Ratio 15.1 (10-20); Blood Urea Nitrogen 14 mg/dl (7-18); Calcium 9.3 mg/dl (8.5-10.1); Carbon Dioxide 29 mmol/L (21-32); Chloride 104 mmol/L (98-107); Creatinine Clr Calc Pharmacy 100.7 ml/min; Est GFR (African American) 100.2 ml/min; Est GFR (Non-African American) 86.5 ml/min; Glucose 98 mg/dl (70-99); Potassium 4.1 mmol/L (3.5-5.1); Sodium 138 mmol/L (136-145)
[2021-01-30 09:25] LABS: INR 3.5 (0.9-1.1)
[2021-01-30 09:27] LABS: Albumin Globulin Ratio 0.9 (0.9-2); Alkaline Phosphatase 231 U/L (45-117); Bilirubin,Total 0.4 mg/dl (0.2-1); Globulin 4.1 gm/dl (2.5-4.0); NT Pro B Type Natriuretic Pept 289 pg/ml (0-900); Partial Thromboplastin Time 52.9 Seconds (21.0-31.0); Total Protein 7.9 gm/dl (6.4-8.2); Troponin I < 0.015 ng/ml (0-0.045)
--- NOTE | 2021-01-30 10:01 | CT Scan Report ---
CT head/brain wo con CLINICAL HISTORY: Severe headache. Trauma. COMPARISON STUDY: 07/27/2020 TECHNIQUE: Axial CT of the brain is performed from the vertex to the skull base. IV contrast was not administered for this examination. A dose lowering technique was utilized adhering to the principles of ALARA. CT DOSE: 614.27 mGy.cm FINDINGS: There are postsurgical changes of a right temporoparietal craniotomy. There is persistent right tempo ral and parieto-occipital lobe encephalomalacia. There is no CT evidence of acute cortical infarction . There is no acute hemorrhage. There are patchy white matter hypodensities likely on a small vessel basis. There is compensatory dilatation of the right lateral ventricle. There is stable pontine and midbrain calcifications. There is a chronic right mastoid effusion. IMPRESSION: 1. No acute intracranial findings 2. Stable postsurgical changes of a right temporoparietal craniotomy with temporal parietal and occip ital lobe encephalomalacia 3. Stable chronic right mastoid effusion. 4. Stable calcifications within the kalpesh and midbrain ACT 112: Negative or not required by law. Electronically signed by: Daren Manrique M.D. 01/30/2021 10:00 AM
[2021-01-30] MEDS ORDERED: ONDANSETRON INJ 2 MG/ML 2 ML VIAL IV STA ×2 (10:07→13:32)
[2021-01-30] MEDS ORDERED: MoRPHine SULFATE 2 MG/ML CARP IV STA (10:07)
[2021-01-30 10:18] LABS: Appearance Urine Clear (Clear); Bacteria Urine Automated Negative (Negative); Bilirubin Urine Negative (Negative); Blood Urine Trace (Negative); Cast Urine Automated 0 /lpf (0-5); Color Urine Yellow; Glucose Urine UA Negative (Negative); Ketones Urine Negative (Negative); Leukocyte Esterase Urine Negative (Negative); Nitrite Urine Negative (Negative); Protein Urine Negative (Negative); RBC Urine Automated 0-4 /hpf (0-4); Specific Gravity Urine 1.023 (1.000-1.030); Urobilinogen Urine Negative (Negative); WBC Urine Automated 0 /hpf (0-5)
[2021-01-30] MEDS ORDERED: PHYTONADIONE 10 MG in SODIUM CHLORIDE 0.9% 50 ML IV STA (10:46)
--- NOTE | 2021-01-30 10:46 | History & Physical Report ---
Date of Service January 30, 2021 Assessment & Plan (1) Meningitis: Possible meningitis however unable to do lumbar puncture on admission due to elevated INR. Will give vitamin K 10 mg IV to reverse this. Lumbar puncture planned for tomorrow morning. Dexamethasone 10 mg every 6 hours. Empiric antibiotics with vancomycin, cefepime and ampicillin. Empiric antiviral with acyclovir 10 mg/kg every 8 hourly. Will defer consulting infectious disease depending on findings from lumbar puncture. Follow-up blood cultures. (2) Headache: Rule out meningitis as above. (3) AVANI (obstructive sleep apnea): Not on CPAP (4) B12 deficiency: Notable history of this. Currently not taking supplementation. (5) Hx of brain cancer: Notable history of glioblastoma successfully resected. (6) Generalized epilepsy: Continue his usual antiseizure medications with phenytoin and lamotrigine. (7) Bilateral leg edema: Ultrasound venous Doppler bilateral lower extremities (8) Edema of left upper extremity: Ultrasound venous Doppler left upper extremity (9) DVT prophylaxis: Reversal of warfarin with vitamin K 10 mg IV as above. Admission and Anticipated Discharge Date Admission Date: January 30, 2021 History of Present Illness Chief Complaint: Headache Primary Care Provider: TOBIN Tolbert Balbir eJnsen is a 65-year-old [id number] male who presents to the ER with headache. The headache woke him up this morning around 2-3am. He has insomnia at baseline. Occasionally he will have some minor headaches, however this severity headache is more unusual. He reports having a similar headache during previous meningitis episodes. He feels this is bilateral behind his eyes in the center of his head. Severity 8/10 at worst in the ER, currently 6/10 after morphine. Associated chills earlier today but no fevers. No neck pain, change in lethargy or focal neurology. No change in speech/vision/hearing. His also reports concerns with left hand swelling. She notes this was prior to a full yesterday. She did notice his glasses were bent yesterday morning with associated left hand swelling and finger pain and felt he may have had a seizure although nothing was witnessed at this time. He fell yesterday afternoon in the garden after this around 2-3pm. He has baseline ambulatory dysfunction and he thinks he just fell on uneven dirt in the garden. No chest pain, dizziness or shortness of breath prior to the fall. No loss of consciousness. He did not hit his head. He has a significant history of glioblastoma requiring resection in 2003 and 2006 with baseline left-sided weakness. Per his he has a chronic CHF leak into his right mastoid which has a chronic right effusion on CT. 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 He is supposed to take amoxicillin daily as meningitis prophylaxis although stopped this to 3 months ago due to recurrent tinea in his groin. In the ER CT head showed no acute findings. Stable postsurgical changes of the right temporoparietal craniotomy with encephalomalacia in occipital and temporal parietal lobes. Stable chronic right mastoid effusion. Stable calcifications in the kalpesh and midbrain. INR 3.5 therefore unable to do lumbar puncture at this time. WBC 9.04. He was referred to medicine for admission ongoing management of headache and possible seizure. Allergies Allergy/AdvReac Type Severity Reaction Status Date / Time No Known Allergies Allergy ` Verified 01/30/21 09:00 Home Medications Medication Instructions Recorded Confirmed Type amoxicillin 500 mg capsule 500 mg PO DAILY@1600 #30 cap 09/02/19 01/30/21 Rx warfarin 2.5 mg tablet 2.5 mg PO .COMPLEX #30 tab 08/26/20 01/30/21 Rx warfarin 5 mg tablet 5 mg PO .COMPLEX #30 tab 08/26/20 01/30/21 Rx lorazepam 1 mg tablet 1 mg PO DAILY PRN 30 Days #30 tab 09/29/20 01/30/21 Rx lamotrigine 200 mg tablet 200 mg PO BID #60 tab 12/14/20 01/30/21 Rx lamotrigine 25 mg tablet 50 mg PO BID #120 tab 12/14/20 01/30/21 Rx phenytoin sodium extended 100 mg 200 mg PO BID 30 Days #120 cap 12/14/20 01/30/21 Rx capsule acetaminophen [Tylenol Extra 500 mg PO Q6H PRN 01/30/21 01/30/21 History Strength] Past Med/Surg History Medical History CKD (chronic kidney disease) stage 2, GFR 60-89 ml/min Closed left clavicular fracture Complex partial seizure DVT of leg (deep venous thrombosis) Fall Hx of brain cancer Glioblastoma Multiforme - 2003 - s/p resection [facility] 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 Small bowel obstruction Surgical History H/O cataract removal with insertion of prosthetic lens H/O shoulder surgery Hx of brain surgery 2004 initial resection for GBM at [facility]; 2006 - 2nd surgery, this time at [facility], ultimately was discovered to have blood clot & scar tissue rather than recurrent cancer Family History Father CHF (congestive heart failure) Myocardial infarction Denies family history of Brain tumor Ovarian cancer Prostate cancer Breast cancer SBO (small bowel obstruction) Colorectal cancer Social History Smoking Status: Never smoker Second Hand Exposure: No; Hx Alcohol Use: No Hx Substance Use: No Preferred Language: Polish Communication Ability: Effective Communication Ability Comment: 2004-BRAIN TUMOR, LEFT MENTALLY DISABLED [employer] M[employer] Required: No Beliefs That Will Affect Care: None marital status: Current Living Situation: Spouse Current Living Situation Comment: lives in [facility] [address]; 2 children 1st marriage; 2 children 2nd marriage current occupational status: retired Other Information That Helps Us Care for You: 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 Feels Safe at Home: Yes Safety Concerns: Feels Safe At This Time caffeine: No Dental Care, Regularly: Yes Physical Activity Frequency: Does not Exercise Seatbelt Use: never Sunscreen Use: No Assistive Devices: Glasses and Oxygen - Continuous Review of Systems Review of Systems: All systems reviewed & are unremarkable except as noted in HPI & below Physical Exam Constitutional: WD/WN, vitals as above + obese Respiratory: normal respiratory effort, lungs clear to auscultation Cardiovascular: Rate/Rhythm: regular rate and regular rhythm Heart Sounds: no murmur Extremities: normal capillary refill and + edema (2+ edema right left hand and bilateral lower extremities); no calf tenderness Gastrointestinal (Abdomen): normal bowel sounds, soft, nontender, no hepatosplenomegaly Inspection/Auscultation: + abdomen distended Skin: no rashes, warm and dry (no areas of cellulitis) + lesion (right ear and right hand concerning for actinic keratoses) Neurologic: moves all extremities, + focal motor deficit (Generalized left- sided weakness) and awake; not confused Speech / Cognition: + abnormal speech (slight slurring but reports due to morphine) Motor/Sensory: + pronator drift (left sided); no tremor Cranial Nerves: PERRL, EOM intact bilaterally, normal facial strength, able to rotate head bilaterally, able to elevate shoulders bilaterally, no nystagmus and symmetric palate elevation Psychiatric: Orientation: alert and oriented x 3 Affect: euthymic affect Genitourinary: no CVA tenderness Results & Data Results & Data ([facility]) Vital Signs (Past 12 Hours) Vital Signs Temp Pulse Resp BP Pulse Ox 01/30/21 08:13 95 01/30/21 07:30 93 H 22 155/109 H 01/30/21 07:00 96 H 19 179/127 H 93 01/30/21 06:39 36.6 C 101 H 18 129/[address] head/brain wo con IMPRESSION: 1. No acute intracranial findings 2. Stable postsurgical changes of a right temporoparietal craniotomy with temporal parietal and occipital lobe encephalomalacia 3. Stable chronic right mastoid effusion. 4. Stable calcifications within the kalpesh and midbrain XR hand LT min 3V routine IMPRESSION: 1. Old posttraumatic deformities 2. No acute fractures identified XR chest 1V portable IMPRESSION: No active disease in the chest. Medications Administered ER medications given: Morphine 2 mg IV Ondansetron 4 mg IV ECG Indication: other Rhythm: normal sinus Comparison ECG Date: from (July 23, 2020) Change: the following changes noted (PVCs no longer present) Code Status & VTE Plan Code Status DNR/DNI per patient wishes VTE Prophylaxis Plan VTE Prophylaxis will be ordered: No PG Care Time/CCT Total # of Minutes Spent Total Time Spent with Patient: Total time spent is greater than 50% in coordination of care (as documented) at patient's floor/unit and/or counseling patient: Coding Level of Care Code 83523 Initial Inpt Care Lvl 3 Diagnoses Meningitis G03.9 Headache R51.9 Headache chronicity pattern: acute headache Headache type: unspecified Intractability: not intractable AVANI (obstructive sleep apnea) G47.33 B12 deficiency E53.8 Hx of brain cancer Z85.841 Generalized epilepsy G40.309 Bilateral leg edema R60.0 Edema of left upper extremity R60.0 DVT prophylaxis Z29.9 (1) Headache Headache chronicity pattern: acute headache Headache type: unspecified Intractability: not intractable Qualified Code(s): R51.9 - Headache, unspecified
[2021-01-30] MEDS ORDERED: ACETAMINOPHEN 1,000 MG/100 ML VIAL IV STA (11:01)
[2021-01-30] MEDS ORDERED: VANCOMYCIN CONSULT ACTIVE PRN (11:02)
[2021-01-30] MEDS ORDERED: VANCOMYCIN HCL 2,250 MG in SODIUM CHLORIDE 0.9% 500 ML IV ONE (11:02)
[2021-01-30] MEDS ORDERED: CEFEPIME 2,000 MG/20 ML VIAL IV STA (11:02)
[2021-01-30] MEDS ORDERED: dexAMETHasone 10 MG in SYRINGE 0 ML IV STA (11:06)
[2021-01-30] MEDS ORDERED: AMPICILLIN 2,000 MG in SODIUM CHLOR 0.9% AD-VAN 100 ML IV STA (11:06)
[2021-01-30] MEDS ORDERED: ACYCLOVIR SOD 700 MG in DEXTROSE 5% 250 ML IV STA (11:18)
[2021-01-30] MEDS: dexAMETHasone**PF** 10 MG/ML VIAL IV STA ×2 (11:32→11:33)
[2021-01-30] MEDS ORDERED: ONDANSETRON INJ 2 MG/ML 2 ML VIAL IV PRN (12:41)
[2021-01-30] MEDS ORDERED: CEFEPIME CONSULT ACTIVE PRN (12:41)
[2021-01-30] MEDS ORDERED: FEXOFENADINE 60 MG TAB PO PRN (13:35)
--- NOTE | 2021-01-30 14:15 | Pharmacy Report ---
Pharmacy Abx Initial Consult - Date of Service January 30, 2021 - Pharmacy Dosing Scope Date of Consult: 01/30/21 Consultation requested by: Dr. Burnett Pharmacy is consulted to initiate VANCOMYCIN and CEFEPIME IV dosing therapy, order appropriate labs and adjust drug dose/frequency. - Subjective The patient is a 65 year old M admitted on 01/30/21 11:21. - Objective Height: 5 ft 9 in Weight: 115.8 kg Vital Signs (Past 12hrs): Vital Signs Temp Pulse Pulse Pulse Resp BP BP 01/30/21 12:20 37.2 C 92 H 22 01/30/21 12:00 102 H 20 124/98 01/30/21 11:48 103 H 19 157/112 H 01/30/21 11:31 102 H 18 01/30/21 11:30 106 H 20 157/112 H 01/30/21 11:00 108 H 20 154/99 H 01/30/21 10:30 108 H 15 167/105 H 01/30/21 08:13 01/30/21 07:30 93 H 22 155/109 H 01/30/21 07:00 96 H 19 179/127 H 01/30/21 06:39 36.6 C 101 H 18 129/82 BP Pulse Ox 01/30/21 12:20 147/86 H 95 01/30/21 12:00 98 01/30/21 11:48 98 01/30/21 11:31 95 01/30/21 11:30 92 01/30/21 11:00 01/30/21 10:30 90 01/30/21 08:13 95 01/30/21 07:30 01/30/21 07:00 93 01/30/21 06:39 96 Lab Results (24hrs): Laboratory Tests (24 Hours) 01/30/21 01/30/21 01/30/21 08:53 08:53 08:25 WBC 9.04 Neut # (Auto) 7.38 H Creatinine 0.93 Est Cr Clr Drug Dosing 100.7 Procalcitonin < 0.05 Micro Results: 01/30/21 08:53 Aerobic Blood Culture - Pending Blood Anaerobic Blood Culture - Pending 01/30/21 08:08 Aerobic Blood Culture - Pending Blood Anaerobic Blood Culture - Pending - Assessment & Plan Assessment 65 year old M admitted with possible meningitis, ordered VANCOMYCIN/CEFEPIME/AMPICILLIN/ACYCLOVIR. LP scheduled for tomorrow. Plan Vancomycin IV * Estimated PK Parameters: Vd 0.7 L/kg, Mario 0.087 hr-1, t1/2 ~8hr * Loading dose: 2250mg (~20 mg/kg) * Maintenance dose: 1500mg IV (~13 mg/kg) every 10 hours * Goal trough level for meningitis : 15 to 20 mcg/mL * Trough level ordered for 02/01/21 @ 4240 Pharmacy will continue to follow and will adjust dose/frequency as necessary. Thank you.
--- NOTE | 2021-01-30 16:33 | Electrocardiogram Report ---
Test Reason : Blood Pressure : / mmHG Vent. Rate : 096 BPM Atrial Rate : 096 BPM P-R Int : 134 ms QRS Dur : 088 ms QT Int : 368 ms P-R-T Axes : 036 009 038 degrees QTc Int : 464 ms Normal sinus rhythm Normal ECG When compared with ECG of 23-JUL-2020 12:21, Premature ventricular complexes are no longer Present Confirmed by Maurisio West ([id number]) on 01/30/2021 4:32:47 PM Referred By: REFERRED SELF Confirmed By:Yang West
[2021-01-30] MEDS: ACETAMINOPHEN 325 MG TAB PO PRN ×2 (17:04→22:45)
[2021-01-30] MEDS: dexAMETHasone 10 MG in SYRINGE 0 ML IV SCH ×2 (17:05→23:56)
[2021-01-30 18:21] LABS: INR 1.6 (0.9-1.1); Prothrombin Time 15.4 Seconds (9.0-12.0)
--- NOTE | 2021-01-30 19:05 | Ultrasound Report ---
US venous doppler UE LT CLINICAL HISTORY: Left arm swelling COMPARISON STUDY: No previous studies for comparison. FINDINGS: No intraluminal thrombus was visualized. The internal jugular, subclavian, axillary, cephal ic, brachial, basilic, radial, and ulnar veins were patent. A portion of the mid forearm was not visi ble due to intravenous line placement. IMPRESSION: No evidence of left upper extremity DVT. ACT 112: Negative or not required by law. Electronically signed by: Daren Manrique M.D. 01/30/2021 7:03 PM
--- NOTE | 2021-01-30 19:05 | Ultrasound Report ---
US venous doppler LE BI CLINICAL HISTORY: Bilateral leg swelling COMPARISON STUDY: 01/21/2020 FINDINGS: Real-time and color flow Doppler imaging were performed. Flow was seen within the femoral, popliteal and calf veins with no intraluminal thrombus demonstrated. The saphenous vein is patent. IMPRESSION: No evidence of lower extremity DVT. ACT 112: Negative or not required by law. Electronically signed by: Daren Manrique M.D. 01/30/2021 7:04 PM
[2021-01-30] MEDS: CEFEPIME 2,000 MG in SYRINGE 0 ML IV SCH (19:39)
[2021-01-30] MEDS: AMPICILLIN 2,000 MG in SODIUM CHLOR 0.9% AD-VAN 100 ML IV SCH (20:06)
[2021-01-30] MEDS: lamoTRIgine 100 MG TAB PO SCH (20:10)
[2021-01-30] MEDS: PHENYTOIN SODIUM ER 100 MG CAP PO SCH (20:10)
[2021-01-30] MEDS: lamoTRIgine 25 MG TAB PO SCH (20:10)
[2021-01-30] MEDS: ACYCLOVIR SOD 700 MG in DEXTROSE 5% 250 ML IV SCH (21:07)
[2021-01-30] MEDS: VANCOMYCIN HCL 1,500 MG in SODIUM CHLORIDE 0.9% 500 ML IV SCH (22:39)
[2021-01-31] MEDS: AMPICILLIN 2,000 MG in SODIUM CHLOR 0.9% AD-VAN 100 ML IV SCH ×4 (02:58→20:32)
[2021-01-31] MEDS: CEFEPIME 2,000 MG in SYRINGE 0 ML IV SCH ×3 (04:55→20:32)
[2021-01-31] MEDS: ACYCLOVIR SOD 700 MG in DEXTROSE 5% 250 ML IV SCH ×3 (05:03→21:54)
[2021-01-31] MEDS: dexAMETHasone 10 MG in SYRINGE 0 ML IV SCH ×3 (05:31→17:21)
[2021-01-31 06:44] LABS: Hematocrit (blood only) 40.6 % (42-52); Hemoglobin 14.4 g/dL (14.0-18.0); Immature Granulocytes # (auto) 0.02 K/uL (0.00-0.02); Immature Granulocytes % (auto) 0.2 %; Lymphocytes # (auto) 0.57 K/uL (1.2-3.4); Lymphocytes % (auto) 6.3 %; Mean Corpuscular Hemoglobin 33.6 pg (25-34); Mean Corpuscular Hgb Conc 35.5 g/dL (32-36); Mean Corpuscular Volume 94.6 fL (80-100); Mean Platelet Volume 9.4 fL (7.4-10.4); Monocytes % (auto) 5.6 %; Neutrophils # (auto) 7.89 K/uL (1.4-6.5); Neutrophils % (auto) 87.9 %; Platelet Count 193 K/uL (130-400); RDW Coefficient of Variation 13.7 % (11.5-14.5); RDW Standard Deviation 47.2 fL (36.4-46.3); Red Blood Count 4.29 M/uL (4.7-6.1); White Blood Count 8.98 K/uL (4.8-10.8)
[2021-01-31 06:50] LABS: INR 1.1 (0.9-1.1); Prothrombin Time 11.2 Seconds (9.0-12.0)
[2021-01-31 07:21] LABS: Albumin Level 3.1 gm/dl (3.4-5.0); BUN Creatinine Ratio 14.6 (10-20); Calcium 8.7 mg/dl (8.5-10.1); Creatinine Clr Calc Pharmacy 103.9 ml/min; Est GFR (African American) 105.2 ml/min; Est GFR (Non-African American) 90.8 ml/min
[2021-01-31 07:24] LABS: Albumin Globulin Ratio 0.8 (0.9-2); Bilirubin,Total 0.7 mg/dl (0.2-1); Globulin 4.1 gm/dl (2.5-4.0); Total Protein 7.2 gm/dl (6.4-8.2)
[2021-01-31] MEDS: lamoTRIgine 100 MG TAB PO SCH ×2 (09:04→20:32)
[2021-01-31] MEDS: lamoTRIgine 25 MG TAB PO SCH ×2 (09:04→20:33)
[2021-01-31] MEDS: VANCOMYCIN HCL 1,500 MG in SODIUM CHLORIDE 0.9% 500 ML IV SCH ×2 (09:05→18:54)
[2021-01-31] MEDS: PHENYTOIN SODIUM ER 100 MG CAP PO SCH ×2 (09:05→20:33)
[2021-01-31] MEDS: ACETAMINOPHEN 325 MG TAB PO PRN ×3 (09:16→20:41)
[2021-01-31] MEDS: POLYETHYLENE (MIRALAX) 17 GM PACK PO PRN (10:58)
--- NOTE | 2021-01-31 12:27 | Hospitalist Progress Note ---
Date of Service January 31, 2021 Assessment & Plan (1) Meningitis: Possible meningitis however unable to do lumbar puncture on admission due to elevated INR. Will give vitamin K 10 mg IV to reverse this. INR down to 1.[address] Gonzalez, he can perform LP tomorrow with fluroscopy discussed with patient, antibiotics already started empirically, will likely alter results, sensitivity of CSF sample continue Dexamethasone 10mg IV q6 x 4 days, day 2 continue Vancomycin, Cefepime and Ampicillin Empiric antiviral with acyclovir 10 mg/kg every 8 hourly. headache resolved, no neck pain, no fever, WBC normal await ID consult from [facility] (2) Headache: Rule out meningitis as above. headache is completely resolved (3) AVANI (obstructive sleep apnea): Not on CPAP check nocturnal desaturation study this evening discussed with patient he needs to get outpatient sleep study (4) B12 deficiency: Notable history of this. Currently not taking supplementation. (5) Hx of brain cancer: Notable history of glioblastoma successfully resected normally he is completely independent his is requesting PT/OT evaluations (6) Generalized epilepsy: Continue his usual antiseizure medications with phenytoin and lamotrigine possible seizure as part of presentation, noted that his glasses were bent? will continue to monitor, no seizure activity while here (7) Benign hypertension: (8) DVT prophylaxis: Reversal of warfarin with vitamin K 10 mg IV as above. INR is 1.1, once LP is complete can give Lovenox and resume Coumadin (9) Bilateral leg edema: Ultrasound venous Doppler bilateral lower extremities - NEGATIVE for DVT (10) Edema of left upper extremity: Ultrasound venous Doppler left upper extremity - NEGATIVE for DVT Admission and Anticipated Discharge Date Admission Date: January 30, 2021 Subjective patient reports he is doing better, his is at the bedside to help with recent history he says his headache is completely gone, no pain at all, when he had the pain it was all behind his eyes he has no neck pain or stiffness he ate well today, no nausea or vomiting, no diarrhea, no cough, no dyspnea, no chest pain, no fever he feels a little weak, his is requesting PT/OT evaluations his is also concerned about his sleeping, she says he will have apneic episodes and his lips will turn blue he has refused to get outpatient sleep study, advised him that he really should, untreated AVANI can have detrimental effects, especially with history of seizures will get nocturnal desaturation study this evening discussed that we can get the LP tomorrow, will get ID consult for their input reviewed chart and labs, discussed with admitting doctor, Dr. Burnett Review of Systems Review of Systems: All systems reviewed & are unremarkable except as noted in Subjective Physical Exam Constitutional: well developed, + obese and comfortable; no acute distress Eyes: PERRL, conjunctivae normal, anicteric sclerae ENMT: Ears: + hearing impairment (hard of hearing bilaterally) Neck: trachea midline, no thyromegaly Respiratory: normal respiratory effort, lungs clear to auscultation Cardiovascular: RRR, no murmur, no edema Gastrointestinal (Abdomen): normal bowel sounds, soft, nontender, no hepatosplenomegaly Musculoskeletal: Head/Neck/Chest: neck supple; + abnormal head shape (evidence of prior right sided craniotomy) Extremities: extremities normal to inspection and strength 5/5 throughout Skin: no rashes, warm and dry Neurologic: patellar DTR's 2+ bilat, sensation intact and PERRL, EOMI, accommodation nl, no face palsy, no dysarthria Psychiatric: A+Ox3, euthymic affect Lymphatic: no cervical or axillary lymphadenopathy Results & Data Results & Data ([facility]) Vital Signs (Past 12 Hours) Vital Signs Temp Pulse Pulse Pulse Resp BP Pulse Ox 01/31/21 11:30 36.7 C 96 H 18 125/77 94 01/31/21 07:19 36.6 C 103 H 18 125/85 93 01/31/21 06:56 94 H 01/31/21 04:26 106 H 01/31/21 03:30 36.7 C 98 H 20 153/98 H 92 Laboratory Results Laboratory Results - last 24 hr 01/30/21 01/31/21 01/31/21 17:56 06:01 06:01 WBC 8.98 RBC 4.29 L Hgb 14.4 Hct 40.6 L MCV 94.6 MCH 33.6 MCHC 35.5 RDW Std Deviation 47.2 H RDW Coeff of Paul 13.7 Plt Count 193 MPV 9.4 Immature Gran % (Auto) 0.2 Neut % (Auto) 87.9 Lymph % (Auto) 6.3 Crook % (Auto) 5.6 Eos % (Auto) 0.0 Baso % (Auto) 0.0 Neut # (Auto) 7.89 H Lymph # (Auto) 0.57 L Crook # (Auto) 0.50 Eos # (Auto) 0.00 Baso # (Auto) 0.00 Immature Gran # (Auto) 0.02 PT 15.4 H 11.2 INR 1.6 H 1.1 Sodium Potassium Chloride Carbon Dioxide Anion Gap BUN Creatinine Est Cr Clr Drug Dosing Est GFR ( Amer) Est GFR (Non-Af Amer) BUN/Creatinine Ratio Glucose Calcium Total Bilirubin AST ALT Alkaline Phosphatase Total Protein Albumin Globulin Albumin/Globulin Ratio 01/31/21 06:01 WBC RBC Hgb Hct MCV MCH MCHC RDW Std Deviation RDW Coeff of Paul Plt Count MPV Immature Gran % (Auto) Neut % (Auto) Lymph % (Auto) Crook % (Auto) Eos % (Auto) Baso % (Auto) Neut # (Auto) Lymph # (Auto) Crook # (Auto) Eos # (Auto) Baso # (Auto) Immature Gran # (Auto) PT INR Sodium 138 Potassium 4.0 Chloride 106 Carbon Dioxide 25 Anion Gap 7.0 BUN 13 Creatinine 0.88 Est Cr Clr Drug Dosing 103.9 Est GFR ( Amer) 105.2 Est GFR (Non-Af Amer) 90.8 BUN/Creatinine Ratio 14.6 Glucose 160 H Calcium 8.7 Total Bilirubin 0.7 AST 18 ALT 28 Alkaline Phosphatase 185 H Total Protein 7.2 Albumin 3.1 L Globulin 4.1 H Albumin/Globulin Ratio 0.8 L Medications Administered Current Inpatient Medications Acetaminophen (Acetaminophen 325 Mg Tab) 650 mg PO Q4H PRN PRN Reason: Pain or Fever Stop: 03/01/21 12:40 Last Admin: 01/31/21 09:16 Dose: 650 mg Documented by: Fexofenadine HCl (Fexofenadine 60 Mg Tab) 60 mg PO Q12H PRN PRN Reason: Allergic Symptoms Stop: 03/01/21 13:44 Last Admin: 01/30/21 14:47 Dose: 60 mg Documented by: Ampicillin Sodium 2,000 mg/ (Sodium Chloride) 100 mls @ 200 mls/hr IV Q6H [facility] Stop: 02/09/21 19:59 Last Infusion: 01/31/21 09:34 Dose: Infused Documented by: Acyclovir Sodium 700 mg/ (Dextrose) 264 mls @ 250 mls/hr IV Q8H [facility] Stop: 02/09/21 21:59 Last Infusion: 01/31/21 06:29 Dose: Infused Documented by: Cefepime HCl 2,000 mg/ Syringe 20 mls @ 5 mls/min IV Q8H [facility]; Protocol Stop: 02/09/21 19:59 Last Admin: 01/31/21 12:18 Dose: 5 mls/min Documented by: Vancomycin HCl 1,500 mg/ (Sodium Chloride) 530 mls @ 200 mls/hr IV Q10H [facility] Stop: 02/09/21 22:59 Last Infusion: 01/31/21 11:44 Dose: Infused Documented by: Dexamethasone 10 mg/ Syringe 2.5 mls @ 1 mls/min IV Q6H [facility] Stop: 03/01/21 17:59 Last Admin: 01/31/21 12:18 Dose: 1 mls/min Documented by: Lamotrigine (Lamotrigine 100 Mg Tab) 200 mg PO BID [facility] Stop: 03/01/21 20:59 Last Admin: 01/31/21 09:04 Dose: 200 mg Documented by: Lamotrigine (Lamotrigine 25 Mg Tab) 50 mg PO BID [facility] Stop: 03/01/21 20:59 Last Admin: 01/31/21 09:04 Dose: 50 mg Documented by: Miscellaneous Information (Vancomycin Consult Active) 1 ea N/A UD PRN PRN Reason: Consult Stop: 03/01/21 11:01 Miscellaneous Information (Cefepime Consult Active) 1 ea N/A UD PRN PRN Reason: Consult Stop: 03/01/21 12:40 Ondansetron HCl (Ondansetron Inj 2 Mg/Ml 2 Ml Vial) 4 mg IV Q6H PRN PRN Reason: Nausea Stop: 03/01/21 12:40 Phenytoin Sodium (Phenytoin Sodium Er 100 Mg Cap) 200 mg PO BID [facility] Stop: 03/01/21 20:59 Last Admin: 01/31/21 09:05 Dose: 200 mg Documented by: Polyethylene Glycol (Polyethylene (Miralax) 17 Gm Pack) 17 gm PO DAILY PRN PRN Reason: Constipation Stop: 03/02/21 10:45 Last Admin: 01/31/21 10:58 Dose: 17 gm Documented by: PG Care Time/CCT Total # of Minutes Spent Total Time Spent with Patient: Total time spent is greater than 50% in coordination of care (as documented) at patient's floor/unit and/or counseling patient: Coding Level of Care Code 42367 Subseq Hosp Care Lvl 3 Diagnoses Meningitis G03.9 Headache R51.9 Headache chronicity pattern: acute headache Headache type: unspecified Intractability: not intractable AVANI (obstructive sleep apnea) G47.33 B12 deficiency E53.8 Hx of brain cancer Z85.841 Generalized epilepsy G40.309 Benign hypertension I10 DVT prophylaxis Z29.9 Bilateral leg edema R60.0 Edema of left upper extremity R60.0 (1) Headache Headache chronicity pattern: acute headache Headache type: unspecified Intractability: not intractable Qualified Code(s): R51.9 - Headache, unspecified
[2021-02-01] MEDS: dexAMETHasone 10 MG in SYRINGE 0 ML IV SCH ×4 (00:14→21:47)
[2021-02-01] MEDS: AMPICILLIN 2,000 MG in SODIUM CHLOR 0.9% AD-VAN 100 ML IV SCH ×4 (02:17→20:08)
[2021-02-01] MEDS ORDERED: VANCOMYCIN LEVEL ONE (04:30)
[2021-02-01] MEDS: CEFEPIME 2,000 MG in SYRINGE 0 ML IV SCH ×3 (04:36→20:02)
[2021-02-01] MEDS: VANCOMYCIN HCL 1,500 MG in SODIUM CHLORIDE 0.9% 500 ML IV SCH ×2 (05:34→15:50)
[2021-02-01] MEDS: ACYCLOVIR SOD 700 MG in DEXTROSE 5% 250 ML IV SCH ×3 (05:34→22:26)
[2021-02-01] MEDS: ACETAMINOPHEN 325 MG TAB PO PRN ×2 (07:57→21:37)
[2021-02-01 08:33] LABS: Creatinine Clr Calc Pharmacy 102.3 ml/min; Est GFR (African American) 105.2 ml/min; Est GFR (Non-African American) 90.8 ml/min
[2021-02-01] MEDS: PHENYTOIN SODIUM ER 100 MG CAP PO SCH ×2 (08:33→21:32)
[2021-02-01] MEDS: lamoTRIgine 25 MG TAB PO SCH ×2 (08:33→21:33)
[2021-02-01] MEDS: lamoTRIgine 100 MG TAB PO SCH ×2 (08:33→21:32)
[2021-02-01 13:52] LABS: CSF Glucose 77 mg/dl (40-70)
[2021-02-01 13:56] LABS: Appearance CSF Clear; CSF Count Tube # 3; CSF Xanthrochromic Xanthochromic; Color CSF Pale Yellow
[2021-02-01 13:57] LABS: Red Blood Cell CSF (B) 450 /uL (0-); Red Blood Cell CSF Auto 430 /uL (0-)
[2021-02-01 13:59] LABS: White Blood Cell CSF Auto 111 /uL (0-5)
--- NOTE | 2021-02-01 14:00 | Fluoroscopy Report ---
FLUOROSCOPICALLY GUIDED LUMBAR PUNCTURE CLINICAL HISTORY: r/o meningitis FLUOROSCOPY TIME: 0.7 minutes NUMBER OF FLUOROSCOPIC IMAGES: 4 PROCEDURE: The procedure, risks and benefits were discussed with the patient including the risk of s sandy headache, bleeding and infection. The patient agreed to the procedure and informed written cons ent was obtained. The procedure was performed by Dr. Gonzalez following a timeout. The right L3-L4 i nterlaminar space was targeted. Skin overlying the space was prepped and draped in sterile fashion an d local anesthesia was achieved with 1% lidocaine. Under intermittent fluoroscopic guidance, a 5 inch , 22-gauge spinal needle was directed into the thecal sac with immediate return of cerebrospinal flui d. Fluid had a slight yellowish tint. A total of 8 cc was collected in 4 vials and [facility] the [facility] as ordered. The needle was removed. The patient tolerated the procedure well and no immediate co mplications were evident. IMPRESSION: Successful fluoroscopically guided lumbar puncture with collection of 8 cc of cerebrospin al fluid which was sent to the laboratory for analysis as ordered. CSF had a slight yellowish tint. ACT 112: Negative or not required by law. Electronically signed by: Jd Gonzalez M.D. 02/01/2021 1:58 PM
[2021-02-01 14:05] LABS: Total Protein CSF 68.5 mg/dl (15-45)
[2021-02-01 14:12] LABS: CSF Chemistry Tube # 1
--- NOTE | 2021-02-01 14:52 | Pharmacy Report ---
Pharmacy Abx Dose Short Note - Date of Service February 01, 2021 - Assessment & Plan Assessment 65 year old M admitted with possible meningitis, ordered VANCOMYCIN/CEFEPIME/AMPICILLIN/ACYCLOVIR. LP completed today- CSF studies pending. Day #3 of antimicrobial therapy. Renal function remains stable. Vancomycin trough drawn appropriately this morning and was approximately a 10hr level. Plan Vancomycin * Trough level of 20.4 mcg/mL is therapeutic * Continue dose of 1500mg mg IV every 10 hours * Goal trough level for meningitis: 15-20mcg/mL * Will repeat a trough level in 2 days or sooner if renal function warrants Pharmacy will continue to follow and will adjust dose/frequency as necessary. Thank you.
[2021-02-01 15:06] LABS: Cryptococcus neoformans/ga PCR Not Detected (NotDetected); Cytomegalovirus PCR Not Detected (NotDetected); Enterovirus PCR Not Detected (NotDetected); Escherichia coli K1 PCR Not Detected (NotDetected); Haemophilius influenzae PCR Not Detected (NotDetected); Herpes Simplex Virus 1 PCR Not Detected (NotDetected); Herpes Simplex Virus 2 PCR Not Detected (NotDetected); Human Herpes Virus 6 PCR Not Detected (NotDetected); Human Parechovirus PCR Not Detected (NotDetected); Listeria monocytogenes PCR Not Detected (NotDetected); Neisseria meningitidis PCR Not Detected (NotDetected); Streptococcus agalactiae PCR Not Detected (NotDetected); Streptococcus pneumoniae PCR Not Detected (NotDetected); Varicella Zoster Virus PCR Not Detected (NotDetected)
[2021-02-01] MEDS ORDERED: WARFARIN SOD 5 MG TAB PO SCH (16:30)
[2021-02-01] MEDS ORDERED: Nursing to Pharmacy Communication SCH (21:30)
[2021-02-01] MEDS: ENOXAPARIN INJ 120 MG/0.8 ML SYR SQ SCH (21:31)
--- NOTE | 2021-02-01 22:22 | Hospitalist Progress Note ---
Date of Service February 01, 2021 Assessment & Plan (1) Meningitis: Possible meningitis however unable to do lumbar puncture on admission due to elevated INR. Will give vitamin K 10 mg IV to reverse this. INR down to 1.[address] Gonzalez, he can perform LP tomorrow with fluroscopy discussed with patient, antibiotics already started empirically, will likely alter results, sensitivity of CSF sample continue Dexamethasone 10mg IV q6 x 4 days, day 2 continue Vancomycin, Cefepime and Ampicillin Empiric antiviral with acyclovir 10 mg/kg every 8 hourly. headache resolved, no neck pain, no fever, WBC normal await ID consult from [place] ID will continue current antibiotics. (2) Headache: Rule out meningitis as above. headache is completely resolved (3) AVANI (obstructive sleep apnea): Not on CPAP check nocturnal desaturation study this evening discussed with patient he needs to get outpatient sleep study (4) B12 deficiency: Notable history of this. Currently not taking supplementation. (5) Hx of brain cancer: Notable history of glioblastoma successfully resected normally he is completely independent his is requesting PT/OT evaluations (6) Generalized epilepsy: Continue his usual antiseizure medications with phenytoin and lamotrigine possible seizure as part of presentation, noted that his glasses were bent? will continue to monitor, no seizure activity while here (7) Benign hypertension: (8) DVT prophylaxis: Reversal of warfarin with vitamin K 10 mg IV as above. INR is 1.1, once LP is complete can give Lovenox and resume Coumadin (9) Bilateral leg edema: Ultrasound venous Doppler bilateral lower extremities - NEGATIVE for DVT (10) Edema of left upper extremity: Ultrasound venous Doppler left upper extremity - NEGATIVE for DVT Admission and Anticipated Discharge Date Admission Date: January 30, 2021 Subjective Patient reports no new symptoms today. He is recovering from his lumbar puncture Review of Systems Review of Systems: All systems reviewed & are unremarkable except as noted in HPI & below Physical Exam Physical Exam: Constitutional: well developed, + obese and comfortable; no acute distress Eyes: PERRL, conjunctivae normal, anicteric sclerae ENMT: Ears: + hearing impairment (hard of hearing bilaterally) Neck: trachea midline, no thyromegaly Respiratory: normal respiratory effort, lungs clear to auscultation Cardiovascular: RRR, no murmur, no edema Gastrointestinal (Abdomen): normal bowel sounds, soft, nontender, no hepatosplenomegaly Musculoskeletal: Head/Neck/Chest: neck supple; + abnormal head shape (evidence of prior right sided craniotomy) Extremities: extremities normal to inspection and strength 5/5 throughout Skin: no rashes, warm and dry Neurologic: patellar DTR's 2+ bilat, sensation intact and PERRL, EOMI, accommodation nl, no face palsy, no dysarthria Psychiatric: A+Ox3, euthymic affect Lymphatic: no cervical or axillary lymphadenopathy Results & Data Results & Data ([facility]) Vital Signs (Past 12 Hours) Vital Signs Temp Pulse Pulse Resp BP BP Pulse Ox 02/01/21 19:40 36.7 C 86 20 129/73 92 02/01/21 16:31 36.7 C 81 20 144/95 H 92 02/01/21 14:35 36.6 C 86 18 140/82 93 02/01/21 14:25 36.5 C 72 18 116/62 02/01/21 13:41 36.7 C 85 18 150/89 H 94 02/01/21 11:17 36.3 C L 88 18 138/81 93 PG Care Time/CCT Total # of Minutes Spent Total Time Spent with Patient: Total time spent is greater than 50% in coordination of care (as documented) at patient's floor/unit and/or counseling patient: Coding Level of Care Code 97426 Subseq Hosp Care Lvl 3 Diagnoses Meningitis G03.9 Headache R51.9 Headache chronicity pattern: acute headache Headache type: unspecified Intractability: not intractable AVANI (obstructive sleep apnea) G47.33 B12 deficiency E53.8 Hx of brain cancer Z85.841 Generalized epilepsy G40.309 Benign hypertension I10 DVT prophylaxis Z29.9 Bilateral leg edema R60.0 Edema of left upper extremity R60.0 Time Spent (min) 35 Comment chart review (1) Headache Headache chronicity pattern: acute headache Headache type: unspecified Intr actability: not intractable Qualified Code(s): R51.9 - Headache, unspecified
[2021-02-02] MEDS: VANCOMYCIN HCL 1,500 MG in SODIUM CHLORIDE 0.9% 500 ML IV SCH ×3 (01:13→16:24)
[2021-02-02] MEDS: dexAMETHasone 10 MG in SYRINGE 0 ML IV SCH ×5 (02:19→23:05)
[2021-02-02] MEDS: AMPICILLIN 2,000 MG in SODIUM CHLOR 0.9% AD-VAN 100 ML IV SCH ×5 (02:23→23:05)
[2021-02-02] MEDS: CEFEPIME 2,000 MG in SYRINGE 0 ML IV SCH ×3 (04:11→20:34)
[2021-02-02] MEDS: ACYCLOVIR SOD 700 MG in DEXTROSE 5% 250 ML IV SCH ×3 (07:43→23:05)
[2021-02-02] MEDS: ENOXAPARIN INJ 120 MG/0.8 ML SYR SQ SCH ×2 (07:49→20:34)
[2021-02-02] MEDS: lamoTRIgine 100 MG TAB PO SCH ×2 (07:50→20:34)
[2021-02-02] MEDS: lamoTRIgine 25 MG TAB PO SCH ×2 (07:50→20:35)
[2021-02-02] MEDS: PHENYTOIN SODIUM ER 100 MG CAP PO SCH ×2 (07:50→20:34)
[2021-02-02] MEDS ORDERED: VANCOMYCIN LEVEL ONE (10:30)
--- NOTE | 2021-02-02 13:46 | Pharmacy Report ---
Pharmacy Abx Dose Short Note - Date of Service February 02, 2021 - Assessment & Plan Assessment 65 year old M receiving vancomycin, cefepime, ampicillin, and acyclovir for treatment of possible bacterial meningitis. CSF culture pending. Day # 4 of antimicrobial therapy. ID consulted - awaiting their recs. Renal function has been stable, will reassess in AM. Plan Vancomycin * Trough level of 24.2 mcg/mL is supratherapeutic * Change to 1500 mg IV every 12 hours - next dose at 1600 * Goal trough level for meningitis : 15 to 20 mcg/mL Cefepime * 2 g IV q8h - appropriate based on indication and renal function Ampicillin * 2 g IV Q4h for treatment of meningitis Acyclovir * 700 mg (10 mg/kg of IBW) IV q8h Pharmacy will continue to follow and will adjust dose/frequency as necessary. Thank you.
[2021-02-02] MEDS: WARFARIN SOD 5 MG TAB PO SCH (16:40)
--- NOTE | 2021-02-02 22:24 | Hospitalist Progress Note ---
Date of Service February 02, 2021 Assessment & Plan (1) Meningitis: Possible meningitis however unable to do lumbar puncture on admission due to elevated INR. Will give vitamin K 10 mg IV to reverse this. INR down to 1.[address] Gonzalez, he can perform LP tomorrow with fluroscopy discussed with patient, antibiotics already started empirically, will likely alter results, sensitivity of CSF sample continue Dexamethasone 10mg IV q6 x 4 days, day 2 continue Vancomycin, Cefepime and Ampicillin Empiric antiviral with acyclovir 10 mg/kg every 8 hourly. headache resolved, no neck pain, no fever, WBC normal await ID consult from [place] ID will continue current antibiotics. Increased ampicillin to q4h. (2) Headache: Rule out meningitis as above. headache is completely resolved (3) AVANI (obstructive sleep apnea): Not on CPAP check nocturnal desaturation study this evening discussed with patient he needs to get outpatient sleep study (4) B12 deficiency: Notable history of this. Currently not taking supplementation. (5) Hx of brain cancer: Notable history of glioblastoma successfully resected normally he is completely independent his is requesting PT/OT evaluations (6) Generalized epilepsy: Continue his usual antiseizure medications with phenytoin and lamotrigine possible seizure as part of presentation, noted that his glasses were bent? will continue to monitor, no seizure activity while here (7) Benign hypertension: (8) DVT prophylaxis: Reversal of warfarin with vitamin K 10 mg IV as above. INR is 1.1, once LP is complete can give Lovenox and resume Coumadin (9) Bilateral leg edema: Ultrasound venous Doppler bilateral lower extremities - NEGATIVE for DVT (10) Edema of left upper extremity: Ultrasound venous Doppler left upper extremity - NEGATIVE for DVT Admission and Anticipated Discharge Date Admission Date: January 30, 2021 Subjective Patient has no new complaints at this time. Review of Systems Review of Systems: All systems reviewed & are unremarkable except as noted in HPI & below Physical Exam Physical Exam: Constitutional: well developed, + obese and comfortable; no acute distress Eyes: PERRL, conjunctivae normal, anicteric sclerae ENMT: Ears: + hearing impairment (hard of hearing bilaterally) Neck: trachea midline, no thyromegaly Respiratory: normal respiratory effort, lungs clear to auscultation Cardiovascular: RRR, no murmur, no edema Gastrointestinal (Abdomen): normal bowel sounds, soft, nontender, no hepatosplenomegaly Musculoskeletal: Head/Neck/Chest: neck supple; + abnormal head shape (evidence of prior right sided craniotomy) Extremities: extremities normal to inspection and strength 5/5 throughout Skin: no rashes, warm and dry Neurologic: patellar DTR's 2+ bilat, sensation intact and PERRL, EOMI, accommodation nl, no face palsy, no dysarthria Psychiatric: A+Ox3, euthymic affect Lymphatic: no cervical or axillary lymphadenopathy Results & Data Results & Data ([facility]) Vital Signs (Past 12 Hours) Vital Signs Temp Pulse Pulse Resp BP Pulse Ox 02/02/21 19:47 36.9 C 80 20 153/97 H 95 02/02/21 16:00 36.8 C 91 H 18 133/72 99 02/02/21 15:00 86 02/02/21 11:45 36.9 C 84 22 122/81 93 PG Care Time/CCT Total # of Minutes Spent Total Time Spent with Patient: Total time spent is greater than 50% in coordination of care (as documented) at patient's floor/unit and/or counseling patient: Coding Level of Care Code 18642 Subseq Hosp Care Lvl 3 Diagnoses Meningitis G03.9 Headache R51.9 Headache chronicity pattern: acute headache Headache type: unspecified Intractability: not intractable AVANI (obstructive sleep apnea) G47.33 B12 deficiency E53.8 Hx of brain cancer Z85.841 Generalized epilepsy G40.309 Benign hypertension I10 DVT prophylaxis Z29.9 Bilateral leg edema R60.0 Edema of left upper extremity R60.0 Time Spent (min) 35 (1) Headache Headache chronicity pattern: acute headache Headache type: unspecified Intractability: not intractable Qualified Code(s): R51.9 - Headache, unspecified
[2021-02-03] MEDS: CEFEPIME 2,000 MG in SYRINGE 0 ML IV SCH ×3 (03:02→20:56)
[2021-02-03] MEDS: AMPICILLIN 2,000 MG in SODIUM CHLOR 0.9% AD-VAN 100 ML IV SCH ×6 (03:02→20:56)
[2021-02-03] MEDS: VANCOMYCIN HCL 1,500 MG in SODIUM CHLORIDE 0.9% 500 ML IV SCH ×2 (03:03→15:51)
[2021-02-03] MEDS: ACYCLOVIR SOD 700 MG in DEXTROSE 5% 250 ML IV SCH ×3 (05:48→20:56)
[2021-02-03] MEDS: dexAMETHasone 10 MG in SYRINGE 0 ML IV SCH ×4 (05:49→22:26)
[2021-02-03] MEDS ORDERED: VANCOMYCIN LEVEL ONE (06:30)
[2021-02-03] MEDS: lamoTRIgine 25 MG TAB PO SCH ×2 (07:59→20:57)
[2021-02-03] MEDS: PHENYTOIN SODIUM ER 100 MG CAP PO SCH ×2 (07:59→20:57)
[2021-02-03] MEDS: ENOXAPARIN INJ 120 MG/0.8 ML SYR SQ SCH ×2 (07:59→20:57)
[2021-02-03] MEDS: lamoTRIgine 100 MG TAB PO SCH ×2 (07:59→20:58)
[2021-02-03 08:49] LABS: Creatinine Clr Calc Pharmacy 104.6 ml/min; Est GFR (African American) 105.2 ml/min; Est GFR (Non-African American) 90.8 ml/min
[2021-02-03] MEDS: POLYETHYLENE (MIRALAX) 17 GM PACK PO PRN (11:29)
[2021-02-03] MEDS: WARFARIN SOD 5 MG TAB PO SCH ×2 (15:53→15:59)
--- NOTE | 2021-02-03 22:09 | Hospitalist Progress Note ---
Date of Service February 03, 2021 Assessment & Plan (1) Meningitis: Possible meningitis however unable to do lumbar puncture on admission due to elevated INR. Will give vitamin K 10 mg IV to reverse this. INR down to 1.[address] Gonzalez, he can perform LP tomorrow with fluroscopy discussed with patient, antibiotics already started empirically, will likely alter results, sensitivity of CSF sample continue Dexamethasone 10mg IV q6 x 4 days, day 2 continue Vancomycin, Cefepime and Ampicillin Empiric antiviral with acyclovir 10 mg/kg every 8 hourly. headache resolved, no neck pain, no fever, WBC normal await ID consult from [place] ID will continue current antibiotics. Increased ampicillin to q4h. Updated family on 02/03 (2) Headache: Rule out meningitis as above. headache is completely resolved (3) AVANI (obstructive sleep apnea): Not on CPAP check nocturnal desaturation study this evening discussed with patient he needs to get outpatient sleep study (4) B12 deficiency: Notable history of this. Currently not taking supplementation. (5) Hx of brain cancer: Notable history of glioblastoma successfully resected normally he is completely independent his is requesting PT/OT evaluations (6) Generalized epilepsy: Continue his usual antiseizure medications with phenytoin and lamotrigine possible seizure as part of presentation, noted that his glasses were bent? will continue to monitor, no seizure activity while here (7) Benign hypertension: (8) DVT prophylaxis: Reversal of warfarin with vitamin K 10 mg IV as above. INR is 1.1, once LP is complete can give Lovenox and resume Coumadin (9) Bilateral leg edema: Ultrasound venous Doppler bilateral lower extremities - NEGATIVE for DVT (10) Edema of left upper extremity: Ultrasound venous Doppler left upper extremity - NEGATIVE for DVT Admission and Anticipated Discharge Date Admission Date: January 30, 2021 Subjective 65 YO MALE, reports feeling well. He has no new complaints. Review of Systems Review of Systems: All systems reviewed & are unremarkable except as noted in HPI & below Physical Exam Physical Exam: Constitutional: well developed, + obese and comfortable; no acute distress Eyes: PERRL, conjunctivae normal, anicteric sclerae ENMT: Ears: + hearing impairment (hard of hearing bilaterally) Neck: trachea midline, no thyromegaly Respiratory: normal respiratory effort, lungs clear to auscultation Cardiovascular: RRR, no murmur, no edema Gastrointestinal (Abdomen): normal bowel sounds, soft, nontender, no hepatosplenomegaly Musculoskeletal: Head/Neck/Chest: neck supple; + abnormal head shape (evidence of prior right sided craniotomy) Extremities: extremities normal to inspection and strength 5/5 throughout Skin: no rashes, warm and dry Neurologic: patellar DTR's 2+ bilat, sensation intact and PERRL, EOMI, accommodation nl, no face palsy, no dysarthria Psychiatric: A+Ox3, euthymic affect Lymphatic: no cervical or axillary lymphadenopathy Results & Data Results & Data ([facility]) Vital Signs (Past 12 Hours) Vital Signs Temp Pulse Resp BP BP Pulse Ox 02/03/21 19:00 36.6 C 85 20 139/88 95 02/03/21 14:48 36.7 C 86 18 130/84 94 02/03/21 11:11 36.8 C 92 H 18 135/86 94 PG Care Time/CCT Total # of Minutes Spent Total Time Spent with Patient: Total time spent is greater than 50% in coordination of care (as documented) at patient's floor/unit and/or counseling patient: Coding Level of Care Code 08043 Subseq Hosp Care Lvl 2 Diagnoses Meningitis G03.9 Headache R51.9 Headache chronicity pattern: acute headache Headache type: unspecified Intractability: not intractable AVANI (obstructive sleep apnea) G47.33 B12 deficiency E53.8 Hx of brain cancer Z85.841 Generalized epilepsy G40.309 Benign hypertension I10 DVT prophylaxis Z29.9 Bilateral leg edema R60.0 Edema of left upper extremity R60.0 Time Spent (min) 25 (1) Headache Headache chronicity pattern: acute headache Headache type: unspecified Intractability: not intractable Qualified Code(s): R51.9 - Headache, unspecified
[2021-02-04] MEDS: CEFEPIME 2,000 MG in SYRINGE 0 ML IV SCH ×2 (03:13→11:32)
[2021-02-04] MEDS: AMPICILLIN 2,000 MG in SODIUM CHLOR 0.9% AD-VAN 100 ML IV SCH ×5 (03:13→17:45)
[2021-02-04] MEDS: VANCOMYCIN HCL 1,500 MG in SODIUM CHLORIDE 0.9% 500 ML IV SCH ×2 (03:13→15:10)
[2021-02-04 03:56] LABS: Hematocrit (blood only) 42.2 % (42-52); Hemoglobin 14.7 g/dL (14.0-18.0); Mean Corpuscular Hemoglobin 32.7 pg (25-34); Mean Corpuscular Hgb Conc 34.8 g/dL (32-36); Mean Platelet Volume 9.4 fL (7.4-10.4); Nucleated RBC # (auto) 0.02 K/uL (0-0); Nucleated RBC % (auto) 0.2 %; Platelet Count 199 K/uL (130-400); RDW Coefficient of Variation 13.6 % (11.5-14.5); RDW Standard Deviation 46.8 fL (36.4-46.3); Red Blood Count 4.49 M/uL (4.7-6.1)
[2021-02-04 04:05] LABS: INR 1.2 (0.9-1.1); Prothrombin Time 12.1 Seconds (9.0-12.0)
[2021-02-04 04:19] LABS: Albumin Level 3.2 gm/dl (3.4-5.0); BUN Creatinine Ratio 24.5 (10-20); Calcium 8.4 mg/dl (8.5-10.1); Creatinine Clr Calc Pharmacy 116.5 ml/min; Est GFR (Non-African American) 94.9 ml/min; Magnesium 2.3 mg/dl (1.8-2.4); Potassium 4.2 mmol/L (3.5-5.1)
[2021-02-04 04:21] LABS: Albumin Globulin Ratio 0.8 (0.9-2); Bilirubin,Total 0.4 mg/dl (0.2-1); Phosphorus 2.7 mg/dl (2.5-4.9); Total Protein 7.2 gm/dl (6.4-8.2)
[2021-02-04] MEDS: ACYCLOVIR SOD 700 MG in DEXTROSE 5% 250 ML IV SCH ×2 (05:33→14:07)
[2021-02-04] MEDS: dexAMETHasone 10 MG in SYRINGE 0 ML IV SCH ×3 (05:33→17:45)
[2021-02-04] MEDS: ENOXAPARIN INJ 120 MG/0.8 ML SYR SQ SCH (08:04)
[2021-02-04] MEDS: lamoTRIgine 25 MG TAB PO SCH (08:05)
[2021-02-04] MEDS: lamoTRIgine 100 MG TAB PO SCH (08:05)
[2021-02-04] MEDS: PHENYTOIN SODIUM ER 100 MG CAP PO SCH (08:05)
[2021-02-04] MEDS ORDERED: LOVENOX TEACHING KIT ONE (15:30)
[2021-02-04] MEDS ORDERED: VANCOMYCIN LEVEL ONE (15:30)
[2021-02-04] MEDS: WARFARIN SOD 5 MG TAB PO SCH (16:23)
--- NOTE | 2021-02-10 20:58 | Discharge Summary ---
Date of Service February 04, 2021 Admission HPI Per Admitting Provider Balbir Jensen is a 65-year-old [id number] male who presents to the ER with headache. The headache woke him up this morning around 2-3am. He has insomnia at baseline. Occasionally he will have some minor headaches, however this severity headache is more unusual. He reports having a similar headache during previous meningitis episodes. He feels this is bilateral behind his eyes in the center of his head. Severity 8/10 at worst in the ER, currently 6/10 after morphine. Associated chills earlier today but no fevers. No neck pain, change in lethargy or focal neurology. No change in speech/vision/hearing. His also reports concerns with left hand swelling. She notes this was prior to a full yesterday. She did notice his glasses were bent yesterday morning with associated left hand swelling and finger pain and felt he may have had a seizure although nothing was witnessed at this time. He fell yesterday afternoon in the garden after this around 2-3pm. He has baseline ambulatory dysfunction and he thinks he just fell on uneven dirt in the garden. No chest pain, dizziness or shortness of breath prior to the fall. No loss of consciousness. He did not hit his head. He has a significant history of glioblastoma requiring resection in 2003 and 2006 with baseline left-sided weakness. Per his he has a chronic CHF leak into his right mastoid which has a chronic right effusion on CT. 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 He is supposed to take amoxicillin daily as meningitis prophylaxis although stopped this to 3 months ago due to recurrent tinea in his groin. In the ER CT head showed no acute findings. Stable postsurgical changes of the right temporoparietal craniotomy with encephalomalacia in occipital and temporal parietal lobes. Stable chronic right mastoid effusion. Stable calcifications in the kalpesh and midbrain. INR 3.5 therefore unable to do lumbar puncture at this time. WBC 9.04. He was referred to medicine for admission ongoing management of headache and possible seizure. Principal Diagnosis headache Discharge Exam Constitutional: well developed, + obese and comfortable; no acute distress Eyes: PERRL, conjunctivae normal, anicteric sclerae ENMT: Ears: + hearing impairment (hard of hearing bilaterally) Neck: trachea midline, no thyromegaly Respiratory: normal respiratory effort, lungs clear to auscultation Cardiovascular: RRR, no murmur, no edema Gastrointestinal (Abdomen): normal bowel sounds, soft, nontender, no hepatosplenomegaly Musculoskeletal: Head/Neck/Chest: neck supple; + abnormal head shape (evidence of prior right sided craniotomy) Extremities: extremities normal to inspection and strength 5/5 throughout Skin: no rashes, warm and dry Neurologic: patellar DTR's 2+ bilat, sensation intact and PERRL, EOMI, accommodation nl, no face palsy, no dysarthria Psychiatric: A+Ox3, euthymic affect Lymphatic: no cervical or axillary lymphadenopathy Discharge Data Allergies Allergy/AdvReac Type Severity Reaction Status Date / Time No Known Allergies Allergy ` Verified 02/07/21 01:23 Consultations 01/30/21 10:29 ED Decision to Admit Stat 02/01/21 14:04 Consult Infectious Diseases Routine Ordered Studies 01/30/21 07:13 CT head/brain wo con Stat 01/30/21 10:57 US venous doppler LE BI Urgent 01/30/21 11:00 US venous doppler UE LT Urgent 02/01/21 12:30 FL lumbar puncture diagnostic Routine Hospital Course (1) Meningitis: Possible meningitis however unable to do lumbar puncture on admission due to elevated INR. Will give vitamin K 10 mg IV to reverse this. INR down to 1.[address] Gonzalez, he can perform LP tomorrow with fluroscopy discussed with patient, antibiotics already started empirically, will likely alter results, sensitivity of CSF sample continue Dexamethasone 10mg IV q6 x 4 days, day 2 continue Vancomycin, Cefepime and Ampicillin Empiric antiviral with acyclovir 10 mg/kg every 8 hourly. headache resolved, no neck pain, no fever, WBC normal Appreciate input from ID: bacterial meningitis unlikely. will continue amoxicillin daily indefinitely. ok for discharge (2) Headache: Rule out meningitis as above. headache is completely resolved (3) AVANI (obstructive sleep apnea): Not on CPAP check nocturnal desaturation study this evening discussed with patient he needs to get outpatient sleep study (4) B12 deficiency: Notable history of this. Currently not taking supplementation. (5) Hx of brain cancer: Notable history of glioblastoma successfully resected normally he is completely independent his is requesting PT/OT evaluations (6) Generalized epilepsy: Continue his usual antiseizure medications with phenytoin and lamotrigine possible seizure as part of presentation, noted that his glasses were bent? will continue to monitor, no seizure activity while here (7) Benign hypertension: (8) DVT prophylaxis: Reversal of warfarin with vitamin K 10 mg IV as above. INR is 1.1, once LP is complete can give Lovenox and resume Coumadin (9) Bilateral leg edema: Ultrasound venous Doppler bilateral lower extremities - NEGATIVE for DVT (10) Edema of left upper extremity: Ultrasound venous Doppler left upper extremity - NEGATIVE for DVT Total Time Total Time Spent Total Time Spent (In Minutes): 32 Total Time Includes: Examination of the Patient, Discharge Planning and Medication Reconciliation Discharge Plan Discharge Items Patient Disposition: Home - Home Health Services Reason For Visit: SUSPECTED MENINGITIS Discharge Diagnosis: POSSIBLE VIRAL MENINGITIS Activity: Resume your previous activity Non-emergency contact: Primary Care Provider Call non-emergency contact if: you have any medication questions Follow-up/Referrals: Anjana Villar CRNP [Primary Care Provider] - 02/10/21 11:30 am Bentley Gabriel MD [Physician] - 05/05/21 11:30 am (DR GABRIEL'S OFFICE WILL CALL YOU IF THEY CAN SEE YOUR SOONER.) Diet: Heart Healthy Addtl Attending Provider Instructions: Will recommend to continue amoxicillin indefinitely once daily. Given INR is low, will recommend to resume your warfarin and continue lovenox for 5 more days. Will recommend you obtain an INR on day 4 and discuss with your primary care. recommend followup with PCP in 1-2 weeks and Neurology in 2-4 weeks Pending Studies at Discharge: No Stand-Alone Forms: My [facility], Smoking Cessation Medications and DC Order Prescriptions: Continued warfarin 5 mg tablet 5 mg PO .COMPLEX Qty: 30 RF: 0 warfarin [Jantoven] 2.5 mg tablet 2.5 mg PO .COMPLEX Qty: 30 RF: 0 lorazepam 1 mg tablet 1 mg PO DAILY PRN (Reason: Seizures) 30 Days Qty: 30 RF: 3 phenytoin sodium extended [Dilantin Extended] 100 mg capsule 200 mg PO BID 30 Days Qty: 120 RF: 5 lamotrigine 200 mg tablet 200 mg PO BID Qty: 60 RF: 5 lamotrigine 25 mg tablet 50 mg PO BID Qty: 120 RF: 5 acetaminophen [Tylenol Extra Strength] 500 mg Tablet 500 mg PO Q6H PRN (Reason: Pain) RF: 0 amoxicillin 500 mg capsule 500 mg PO DAILY@1600 Qty: 30 RF: 11 No Action nystatin 100,000 unit/gram powder 1 applic topical BID Qty: 30 RF: 6 Discharge Orders: Discharge Order (Routine); Ordered 02/04/21 Ordered By: All Milligan Admission Data Admit Date/Time: 01/30/21 11:21 Attending Provider: All Milligan Admit Provider: Joel Burnett Primary Care Provider: Anjana Villar Other Providers: Joel Burnett ; Delmer Prince ; Yoselyn Urena ; Arjun Russ I. ; Tr Cohen II ; Cha Coelho ; Hussain Wright ; [facility] Other Interventions: Discharge Summary Assessment (RN) Last Done: 02/04/21 14:33 Coding Level of Care Code D/C Day Management >30 mins Diagnoses Meningitis G03.9 Headache R51.9 Headache chronicity pattern: acute headache Headache type: unspecified Intractability: not intractable AVANI (obstructive sleep apnea) G47.33 B12 deficiency E53.8 Hx of brain cancer Z85.841 Generalized epilepsy G40.309 Benign hypertension I10 DVT prophylaxis Z29.9 Bilateral leg edema R60.0 Edema of left upper extremity R60.0
== END 2021-02-04 16:08 | disposition home health service (06) ==
LOC: ED 06:37 → 2N 11:21 → SUATTDRO 11:21 → 2N 12:13

== ENCOUNTER 2021-02-20 19:35 | Observation (INO) ==
[2021-02-20] MEDS ORDERED: SODIUM CHLORIDE 0.9% 500 ML IV SCH (20:15)
[2021-02-20 20:28] LABS: Appearance Urine Clear (Clear); Bilirubin Urine Negative (Negative); Blood Urine Negative (Negative); Color Urine Yellow; Glucose Urine UA Negative (Negative); Ketones Urine Negative (Negative); Leukocyte Esterase Urine Negative (Negative); Nitrite Urine Negative (Negative); Protein Urine Negative (Negative); Specific Gravity Urine 1.029 (1.000-1.030); Urobilinogen Urine Negative (Negative); pH Urine 5.5 (4.5-7.5)
[2021-02-20 20:31] LABS: Albumin Level 3.4 gm/dl (3.4-5.0); BUN Creatinine Ratio 25.8 (10-20); Calcium 9.2 mg/dl (8.5-10.1); Creatinine Clr Calc Pharmacy 107.6 ml/min; Est GFR (African American) 107.8 ml/min; Potassium 3.9 mmol/L (3.5-5.1)
[2021-02-20 20:37] LABS: Partial Thromboplastin Time 25.7 Seconds (21.0-31.0); Prothrombin Time 10.1 Seconds (9.0-12.0)
--- NOTE | 2021-02-20 20:43 | XRay Report ---
XR chest 1V portable HISTORY: Seizure. COMPARISON: Chest 01/30/2021. FINDINGS: No pneumothorax. No pleural effusions. There is elevation of the right hemidiaphragm, uncha nged. Left basilar linear densities favor scarring. This remains unchanged. No new focal lung consoli dations to suggest pneumonia. No evidence for pulmonary edema. The heart remains mildly enlarged. Old , healed left clavicle fracture. IMPRESSION: No significant change compared to the prior study. No acute process. ACT 112: Negative or not required by law. Electronically signed by: Tal Harris M.D. 02/20/2021 8:41 PM
[2021-02-20 20:45] LABS: Albumin Globulin Ratio 0.8 (0.9-2); Bilirubin,Total 0.3 mg/dl (0.2-1); Globulin 4.1 gm/dl (2.5-4.0); Total Protein 7.5 gm/dl (6.4-8.2); Troponin I 0.091 ng/ml (0-0.045)
[2021-02-20 20:55] LABS: Hematocrit (blood only) 41.1 % (42-52); Hemoglobin 14.6 g/dL (14.0-18.0); Mean Corpuscular Hemoglobin 34.1 pg (25-34); Mean Corpuscular Hgb Conc 35.5 g/dL (32-36); Mean Platelet Volume 9.2 fL (7.4-10.4); Platelet Count 196 K/uL (130-400); RDW Coefficient of Variation 14.3 % (11.5-14.5); RDW Standard Deviation 49.1 fL (36.4-46.3); Red Blood Count 4.28 M/uL (4.7-6.1); White Blood Count 7.52 K/uL (4.8-10.8)
[2021-02-20 20:56] LABS: Basophils # (auto) 0.01 K/uL (0-0.2); Basophils % (auto) 0.1 %; Eosinophils # (auto) 0.07 K/uL (0-0.5); Eosinophils % (auto) 0.9 %; Immature Granulocytes # (auto) 0.03 K/uL (0.00-0.02); Immature Granulocytes % (auto) 0.4 %; Lymphocytes # (auto) 1.37 K/uL (1.2-3.4); Lymphocytes % (auto) 18.2 %; Monocytes # (auto) 0.65 K/uL (0.11-0.59); Monocytes % (auto) 8.6 %; Neutrophils # (auto) 5.39 K/uL (1.4-6.5); Neutrophils % (auto) 71.8 %
--- NOTE | 2021-02-20 21:10 | Emergency Department Note ---
Impression & Plan Seizure, Acute left-sided weakness, Elevated troponin I level ED Provider Note NAME: MICHELLE BHAKTA AGE: 65 SEX: M : 1955 ARRIVES VIA: Ambulance INFORMANT: Patient, the patient's significant other. ED PROVIDER(S): Toan Unger DO CHIEF COMPLAINT: Seizure HPI: The patient is a 65-year-old male who presented to the emergency department for an evaluation of seizure. The patient states that he sometimes has seizures when he is very anxious. He states he had a seizure at 10:00 this morning when his left to do some errands. The patient states he was very afraid that something was going to happen. He denies having any nausea or vomiting. He denies having any headache. He does have a history of glioblastoma with surgical resection as well as meningitis in the past. He denies having any neck stiffness. He states he does note left-sided weakness which worsens after the seizures. He has been compliant with all his outpatient medication. He has been seen in our facility recently for similar complaints. He denies having any nausea vomiting. He said no fever. He denies having any headache or recent trauma. ROS: See above HPI for pertinent positives & negatives. A total of 10 systems reviewed and were otherwise negative. PAST MEDICAL HISTORY: See Below PAST SURGICAL HISTORY: See Below FAMILY HISTORY: See Below SOCIAL HISTORY: See Below HOME MEDICATIONS: See Below ALLERGIES: See Below VITALS: See Below PHYSICAL EXAMINATION: GENERAL: The patient is awake and alert. He is comfortable appearing. EYES: The conjunctivae are clear. The pupils are round and reactive. EARS, NOSE, MOUTH AND THROAT: The nose is without any evidence of any deformity. NECK: The neck is nontender and supple. RESPIRATORY: Normal respiratory effort is noted there is no evidence of wheezing rhonchi or rales CARDIOVASCULAR: Regular rate and rhythm noted there no murmurs rubs or gallops normal S1 normal S2. GASTROINTESTINAL: The abdomen is soft. Abdomen is nontender. MUSCULOSKELETAL/EXTREMITIES: There is no evidence of gross deformity full range of motion is noted in the hips and shoulders. SKIN: Skin was warm and dry. Pedal edema was noted bilaterally. NEUROLOGIC: Patient is awake alert and oriented x3. 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 Patient is able to hold each leg off the bed for 5 seconds. MEDICAL DECISION MAKING: The patient is a 65-year-old male who presented to the emergency department for an evaluation after having a seizure. The patient does have a history of seizure in the past. He has a history of surgically treated glioblastoma. He states that after having seizures he sometimes has left-sided weakness. Usually the left-sided weakness while in the last approximately 1 hour but the patient had this seizure at 10 in the morning and the left-sided weakness persist. The patient does have continued left-sided weakness on my physical exam. I discussed the patient's laboratory and radiographic studies with him. I also discussed his case with the on-call [facility] hospitalist group. They have agreed to evaluate the patient in the emergency department for further management and disposition. Given the patient's past medical history I do not feel that it is likely he is a candidate for TPA. He has had ongoing symptoms since this morning. Triage Nursing notes reviewed. Prior medical records reviewed Vital Signs: reviewed and remarkable for elevated blood pressure. Differential diagnosis: Epilepsy, infection, hypoglycemia, electrolyte abnormalities, cardiac sources, intracerebral event, trauma, toxicologic, neurologic, syncope, as well as other pathologies. ER treatment provided: See below Diagnostics interpreted by me: ECG: EKG was obtained in the emergency department. My interpretation is normal sinus rhythm at 88 bpm. There is no ectopy. There is no acute ST segment abnormalities noted. This was compared to a tracing from January 30, 2021. No significant changes were noted. Cardiac Monitoring: An order was placed for continuous cardiac monitoring. The monitor shows a rate of 85 bpm with sinus rhythm. Laboratory studies: As stated above and show below. Imaging studies: See below Consultation(s): 220: I discussed this case with Dr. Russ who is on-call for the [facility] hospitalist group. Past Med/Surg History Medical History (Updated 02/21/21 @ 00:32 by Toan Unger DO) CKD (chronic kidney disease) stage 2, GFR 60-89 ml/min Closed left clavicular fracture Complex partial seizure DVT of leg (deep venous thrombosis) Fall Hx of brain cancer Glioblastoma Multiforme - 2004 - s/p resection [facility] Meningitis multiple episodes Small bowel obstruction Surgical History H/O cataract removal with insertion of prosthetic lens H/O shoulder surgery Hx of brain surgery 2004 initial resection for GBM at [facility]; 2006 - 2nd surgery, this time at [facility], ultimately was discovered to have blood clot & scar tissue rather than recurrent cancer Family History Father CHF (congestive heart failure) Myocardial infarction Denies family history of Brain tumor Ovarian cancer Prostate cancer Breast cancer SBO (small bowel obstruction) Colorectal cancer Social History Smoking Status: Never smoker Second Hand Exposure: No; Hx Alcohol Use: No Hx Substance Use: No Preferred Language: Italian Communication Ability: Effective 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 Beliefs That Will Affect Care: None marital status: Current Living Situation: Spouse Current Living Situation Comment: lives in [facility]; 2 children 1st marriage; 2 children 2nd marriage 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 Safe at Home: Yes caffeine: No Dental Care, Regularly: Yes Physical Activity Frequency: Does not Exercise Seatbelt Use: never Sunscreen Use: No Assistive Devices: Glasses and Walker Allergies Allergies Allergy/AdvReac Type Severity Reaction Status Date / Time No Known Allergies Allergy ` Verified 02/20/21 21:20 Home Meds Home Medications Medication Instructions Recorded Confirmed acetaminophen [Tylenol Extra 500 mg PO Q6H PRN 01/30/21 02/20/21 Strength] butenafine [Lotrimin Ultra] 1 applic TOPICAL BID 02/20/21 02/20/21 Previous Rx's Medication Instructions Recorded warfarin 2.5 mg tablet 2.5 mg PO .COMPLEX #30 tab 08/26/20 warfarin 5 mg tablet 5 mg PO .COMPLEX #30 tab 08/26/20 lorazepam 1 mg tablet 1 mg PO DAILY PRN 30 Days #30 tab 09/29/20 lamotrigine 200 mg tablet 200 mg PO BID #60 tab 12/14/20 lamotrigine 25 mg tablet 50 mg PO BID #120 tab 12/14/20 phenytoin sodium extended 100 mg 200 mg PO BID 30 Days #120 cap 12/14/20 capsule amoxicillin 500 mg PO DAILY@1600 #30 cap 02/04/21 Results & Data (ED) Vital Signs Vital Signs - 24 hr 02/20/21 19:37 02/20/21 19:43 02/20/21 20:00 Temperature 36.7 C Temperature Source Oral Pulse Rate 90 89 88 Pulse Rate from SpO2 Sensor 90 90 Pulse Rhythm Regular Pulse Strength Normal Respiratory Rate 22 19 18 Respiratory Effort / Characteristics Non-Labored Spontaneous Respiratory Depth Normal Respiratory Pattern Regular Blood Pressure 126/94 126/94 Blood Pressure Mean 104 104 Blood Pressure Position Lying Pulse Oximetry 94 93 94 Oxygen Delivery Method Room Air Sepsis Recent Fever Within 48 Hours No Sepsis New/Unexplained Change in Mental Status No Sepsis Action Taken by Nursing No Action Required 02/20/21 20:17 02/20/21 20:30 02/20/21 21:01 Temperature Temperature Source Pulse Rate 89 84 89 Pulse Rate from SpO2 Sensor 78 84 88 Pulse Rhythm Pulse Strength Respiratory Rate 22 19 23 Respiratory Effort / Characteristics Respiratory Depth Respiratory Pattern Blood Pressure 137/95 138/100 Blood Pressure Mean 109 112 Blood Pressure Position Pulse Oximetry 94 95 95 Oxygen Delivery Method Sepsis Recent Fever Within 48 Hours Sepsis New/Unexplained Change in Mental Status Sepsis Action Taken by Nursing 02/20/21 21:08 02/20/21 21:30 02/20/21 22:00 Temperature Temperature Source Pulse Rate 85 86 86 Pulse Rate from SpO2 Sensor 84 85 Pulse Rhythm Pulse Strength Respiratory Rate 19 16 19 Respiratory Effort / Characteristics Respiratory Depth Respiratory Pattern Blood Pressure 144/98 H 150/96 H 145/95 H Blood Pressure Mean 113 114 111 Blood Pressure Position Pulse Oximetry 95 94 Oxygen Delivery Method Sepsis Recent Fever Within 48 Hours Sepsis New/Unexplained Change in Mental Status Sepsis Action Taken by Nursing 02/20/21 23:40 Temperature Temperature Source Pulse Rate 94 H Pulse Rate from SpO2 Sensor Pulse Rhythm Pulse Strength Respiratory Rate 18 Respiratory Effort / Characteristics Respiratory Depth Respiratory Pattern Blood Pressure 140/107 H Blood Pressure Mean 118 Blood Pressure Position Pulse Oximetry Oxygen Delivery Method Sepsis Recent Fever Within 48 Hours Sepsis New/Unexplained Change in Mental Status Sepsis Action Taken by [facility] Medications Current Medication List: was personally reviewed by me Laboratory Data Attestation: I reviewed the patient's lab results. Result diagrams: 02/20/21 19:50 02/20/21 19:50 Lab Results 02/20/21 02/20/21 02/20/21 Range/Units 19:50 19:50 19:50 WBC 7.52 (4.8-10.8) K/uL RBC 4.28 L (4.7-6.1) M/uL Hgb 14.6 (14.0-18.0) g/dL Hct 41.1 L (42-52) % MCV 96.0 (80-100) fL MCH 34.1 H (25-34) pg MCHC 35.5 (32-36) g/dL RDW Std Deviation 49.1 H (36.4-46.3) fL RDW Coeff of Paul 14.3 (11.5-14.5) % Plt Count 196 (130-400) K/uL MPV 9.2 (7.4-10.4) fL Immature Gran % (Auto) 0.4 % Neut % (Auto) 71.8 % Lymph % (Auto) 18.2 % [place] % (Auto) 8.6 % Eos % (Auto) 0.9 % Baso % (Auto) 0.1 % Neut # (Auto) 5.39 (1.4-6.5) K/uL Lymph # (Auto) 1.37 (1.2-3.4) K/uL [place] # (Auto) 0.65 H (0.11-0.59) K/uL Eos # (Auto) 0.07 (0-0.5) K/uL Baso # (Auto) 0.01 (0-0.2) K/uL Immature Gran # (Auto) 0.03 H (0.00-0.02) K/uL PT 10.1 (9.0-12.0) Seconds INR 1.0 (0.9-1.1) APTT 25.7 (21.0-31.0) Seconds PTT Ratio 1.0 Sodium 137 (136-145) mmol/L Potassium 3.9 (3.5-5.1) mmol/L Chloride 104 (98-107) mmol/L Carbon Dioxide 26 (21-32) mmol/L Anion Gap 7.0 (3-11) BUN 22 H (7-18) mg/dl Creatinine 0.83 (0.6-1.4) mg/dl Est Cr Clr Drug Dosing 107.6 ml/min Est GFR ( Amer) 107.8 ml/min Est GFR (Non-Af Amer) 93.0 ml/min BUN/Creatinine Ratio 25.8 H (10-20) Glucose 100 H (70-99) mg/dl Calcium 9.2 (8.5-10.1) mg/dl Magnesium 2.0 (1.8-2.4) mg/dl Total Bilirubin 0.3 (0.2-1) mg/dl AST 27 (15-37) U/L ALT 64 (12-78) U/L Alkaline Phosphatase 196 H (45-117) U/L Troponin I 0.091 H* (0-0.045) ng/ml Total Protein 7.5 (6.4-8.2) gm/dl Albumin 3.4 (3.4-5.0) gm/dl Globulin 4.1 H (2.5-4.0) gm/dl Albumin/Globulin Ratio 0.8 L (0.9-2) Urine Color Urine Appearance (Clear) Urine pH (4.5-7.5) Ur Specific [place] (1.000-1.030) Urine Protein (Negative) Urine Glucose (UA) (Negative) Urine Ketones (Negative) Urine Blood (Negative) Urine Nitrite (Negative) Urine Bilirubin (Negative) Urine Urobilinogen (Negative) Ur Leukocyte Esterase (Negative) Phenytoin (10-20) mcg/ml COVID-19 Eval Order 02/20/21 02/20/21 02/20/21 Range/Units 21:32 23:40 Unknown WBC (4.8-10.8) K/uL RBC (4.7-6.1) M/uL Hgb (14.0-18.0) g/dL Hct (42-52) % MCV (80-100) fL MCH (25-34) pg MCHC (32-36) g/dL RDW Std Deviation (36.4-46.3) fL RDW Coeff of Paul (11.5-14.5) % Plt Count (130-400) K/uL MPV (7.4-10.4) fL Immature Gran % (Auto) % Neut % (Auto) % Lymph % (Auto) % [place] % (Auto) % Eos % (Auto) % Baso % (Auto) % Neut # (Auto) (1.4-6.5) K/uL Lymph # (Auto) (1.2-3.4) K/uL [place] # (Auto) (0.11-0.59) K/uL Eos # (Auto) (0-0.5) K/uL Baso # (Auto) (0-0.2) K/uL Immature Gran # (Auto) (0.00-0.02) K/uL PT (9.0-12.0) Seconds INR (0.9-1.1) APTT (21.0-31.0) Seconds PTT Ratio Sodium (136-145) mmol/L Potassium (3.5-5.1) mmol/L Chloride (98-107) mmol/L Carbon Dioxide (21-32) mmol/L Anion Gap (3-11) BUN (7-18) mg/dl Creatinine (0.6-1.4) mg/dl Est Cr Clr Drug Dosing ml/min Est GFR ( Amer) ml/min Est GFR (Non-Af Amer) ml/min BUN/Creatinine Ratio (10-20) Glucose (70-99) mg/dl Calcium (8.5-10.1) mg/dl Magnesium (1.8-2.4) mg/dl Total Bilirubin (0.2-1) mg/dl AST (15-37) U/L ALT (12-78) U/L Alkaline Phosphatase (45-117) U/L Troponin I (0-0.045) ng/ml Total Protein (6.4-8.2) gm/dl Albumin (3.4-5.0) gm/dl Globulin (2.5-4.0) gm/dl Albumin/Globulin Ratio (0.9-2) Urine Color Yellow Urine Appearance Clear (Clear) Urine pH 5.5 (4.5-7.5) Ur Specific [place] 1.029 (1.000-1.030) Urine Protein Negative (Negative) Urine Glucose (UA) Negative (Negative) Urine Ketones Negative (Negative) Urine Blood Negative (Negative) Urine Nitrite Negative (Negative) Urine Bilirubin Negative (Negative) Urine Urobilinogen Negative (Negative) Ur Leukocyte Esterase Negative (Negative) Phenytoin 5.2 L (10-20) mcg/ml COVID-19 Eval Order Covid19 at [facility] Administered Medications Discontinued Medications Sodium Chloride (Nss) 500 mls @ 999 mls/hr IV .Q31M DARNELL Stop: 02/20/21 20:45 Last Infusion: 02/20/21 22:31 Dose: 0 mls/hr Documented by: [id number] Admin: 02/20/21 20:39 Dose: 999 mls/hr Documented by: [id number] Lamotrigine (Lamotrigine 100 Mg Tab) 250 mg PO ONE ONE Stop: 02/20/21 22:13 Last Admin: 02/20/21 22:38 Dose: 250 mg Documented by: [id number] Phenytoin Sodium (Phenytoin Sodium Er 100 Mg Cap) 200 mg PO ONE STA Stop: 02/20/21 22:30 Last Admin: 02/20/21 22:38 Dose: 200 mg Documented by: [id number] Imaging Data Radiologist's Impression: Head CT 02/20/21 20:[address] DOSE: 614.27 mGy.cm HISTORY: Seizure. TECHNIQUE: Multiaxial CT images of the head were performed without the use of intravenous contrast. Automated exposure control was utilized for this study. A dose lowering technique was utilized adhering to the principles of ALARA. Comparison: Head CT 01/30/2021. Findings: There are postsurgical changes of a right temporoparietal craniotomy. There is persistent right temporal and parieto-occipital lobe encephalomalacia. There is no CT evidence of acute cortical infarction. There is no acute hemorrhage. There are patchy white matter hypodensities likely on a small vessel basis. There is compensatory dilatation of the right lateral ventricle. There is stable pontine and midbrain calcifications. There is a chronic right mastoid effusion. IMPRESSION: 1. No acute intracranial findings 2. Stable postsurgical changes of a right temporoparietal craniotomy with temporal parietal and occipital lobe encephalomalacia 3. Stable chronic right mastoid effusion. 4. Stable calcifications within the kalpesh and midbrain ACT 112: Negative or not required by law. Electronically signed by: Tal Harris M.D. 02/20/2021 9:13 PM Chest X-Ray 02/20/21 20:13 XR chest 1V portable HISTORY: Seizure. COMPARISON: Chest 01/30/2021. FINDINGS: No pneumothorax. No pleural effusions. There is elevation of the right hemidiaphragm, unchanged. Left basilar linear densities favor scarring. This remains unchanged. No new focal lung consolidations to suggest pneumonia. No evidence for pulmonary edema. The heart remains mildly enlarged. Old, healed left clavicle fracture. IMPRESSION: No significant change compared to the prior study. No acute process. ACT 112: Negative or not required by law. Electronically signed by: Tal Harris M.D. 02/20/2021 8:41 PM Discharge Plan Visit Data Chief Complaint: Seizure Stated Complaint: SEIZURE ED Provider: Toan Unger Discharge Problem: Seizure, Acute left-sided weakness, Elevated troponin I level Forms Stand Alone Forms: My [facility] Prescriptions Prescriptions: No Action warfarin 5 mg tablet 5 mg PO .COMPLEX Qty: 30 RF: 0 warfarin [Jantoven] 2.5 mg tablet 2.5 mg PO .COMPLEX Qty: 30 RF: 0 lorazepam 1 mg tablet 1 mg PO DAILY PRN (Reason: Seizures) 30 Days Qty: 30 RF: 3 phenytoin sodium extended [Dilantin Extended] 100 mg capsule 200 mg PO BID 30 Days Qty: 120 RF: 5 lamotrigine 200 mg tablet 200 mg PO BID Qty: 60 RF: 5 lamotrigine 25 mg tablet 50 mg PO BID Qty: 120 RF: 5 acetaminophen [Tylenol Extra Strength] 500 mg Tablet 500 mg PO Q6H PRN (Reason: Pain) RF: 0 amoxicillin 500 mg capsule 500 mg PO DAILY@1600 Qty: 30 RF: 11 butenafine [Lotrimin Ultra] 1 % Cream 1 applic TOPICAL BID RF: 0
--- NOTE | 2021-02-20 21:14 | CT Scan Report ---
HEAD CT NONCONTRAST CT DOSE: 614.27 mGy.cm HISTORY: Seizure. TECHNIQUE: Multiaxial CT images of the head were performed without the use of intravenous contrast. A utomated exposure control was utilized for this study. A dose lowering technique was utilized adheri ng to the principles of ALARA. Comparison: Head CT 01/30/2021. Findings: There are postsurgical changes of a right temporoparietal craniotomy. There is persistent r ight temporal and parieto-occipital lobe encephalomalacia. There is no CT evidence of acute cortical infarction. There is no acute hemorrhage. There are patchy white matter hypodensities likely on a small vessel basis. There is compensatory dilatation of the right lateral ventricle. There is stable pontine and midbrain calcifications. There is a chronic right mastoid effusion. IMPRESSION: 1. No acute intracranial findings 2. Stable postsurgical changes of a right temporoparietal craniotomy with temporal parietal and occip ital lobe encephalomalacia 3. Stable chronic right mastoid effusion. 4. Stable calcifications within the kalpesh and midbrain ACT 112: Negative or not required by law. Electronically signed by: Tal Harris M.D. 02/20/2021 9:13 PM
[2021-02-20] MEDS ORDERED: PHENYTOIN 100 MG/4 ML UDP PO ONE (22:12)
[2021-02-20] MEDS ORDERED: lamoTRIgine 100 MG TAB PO ONE (22:12)
[2021-02-20] MEDS ORDERED: PHENYTOIN SODIUM ER 100 MG CAP PO STA (22:29)
--- NOTE | 2021-02-20 23:20 | History & Physical Report ---
Date of Service February 20, 2021 Assessment & Plan (1) Seizure: 65yo male with history of GBM s/p resection, baseline left sided weakness, seizure disorder presenting after tonic-clonic seizure at home with prolonged worsening of left sided weakness. Patient with baseline weakness of left side secondary to his GBM resection. Left sided weakness frequently worsens following seizure then returns to baseline. However, weakness has persisted throughout the day. Most likely secondary to Gabriel paresis vs recrudescence of underlying deficit. Do not strongly suspect acute event such as CVA. Dilantin level is low - question compliance with medications. -Observation to medical floor -Maintain stroke precautions -Ativan PRN -Continue Dilantin and Lamictal -Neuro checks per protocol -MRI brain -Neurology consultation appreciated Present on Admission?: Yes (2) Left-sided weakness: As above -Do not strongly suspect acute even (3) Meningitis: Patient with history of recurrent meningitis, most recently last month for which he was hospitalized. He is to be taking Amoxicillin for chronic suppressive therapy. However, he has not been taking this medication due to the fact that it worsens his tinea cruris infection. Do not suspect acute meningitis at this time. -Will resume Amoxicillin. He is to continue this indefinitely -Continue topical antifungal - Lotrimin BID Present on Admission?: Yes (4) AVANI (obstructive sleep apnea): Patient does not use CPAP -Monitor Present on Admission?: Yes (5) DVT of leg (deep venous thrombosis): Patient with history of DVTs, is to be on daily Coumadin. He has not been taking this medication due to increased bruising. INR=1 -Resume Coumadin -Monitor INR Present on Admission?: Yes (6) CKD (chronic kidney disease) stage 2, GFR 60-89 ml/min: Near baseline -Continue to monitor renal function -Avoid nephrotoxic agents Present on Admission?: Yes (7) Hx of brain cancer: History of glioblastoma s/p resection. Seizures as above. Patient requiring assistance with ambulation and transfers at this time -PT/OT evaluation - ?home health services F/E/N - [facility]. Electrolytes WNL. Regular diet as tolerated Ppx -Resume Coumadin as above Code - DNR/DNI per discussion with patient Dispo - Observation to medical Present on Admission?: Yes History of Present Illness Chief Complaint: seizure, left sided weakness Primary Care Provider: TOBIN Tolbert Balbir Jensen is a pleasant 65yo male with history of Glioblastoma s/p resection in 2003 and 2006 with baseline left-sided weakness. He has had meningitis in the past - viral x 2, haemophilus influenza x 1. He was most recently admitted to [facility] from 01/30 - 02/04 with concern for meningitis. Patient was treated with Dexamethasone, Vancomycin, Cefepime and Ampicillin as well as Acyclovir during that hospital stay. Bacterial meningitis thought to be unlikely so patient was discharged home with instruction to continue his daily Amoxicillin treatment for chronic suppression. Of note, patient has not been taking this as it worsens tinea cruris infection. This AM at appx 10:00 patient had a tonic clonic seizure. Episode was witnessed by patient's - lasted approximately 4-5 minutes followed by a post-ictal phase. Episode was quite typical for patient's seizures. thinks that the patient may have had a seizure before the witnessed episode at 10:00 as well. Patient with baseline left sided weakness which tends to acutely worsen following seizure. The increased weakness typically resolves within an hour. They present today with concern for ongoing left sided weakness greater than ba seline. Patient is unable to ambulate in his current state. Patient recalls the seizure - prodrome of right little finger twitching followed by tonic-clonic seizure. He tried to take Ativan but was unable to get to his medications in time. No additional complaints at this time. Specifically patient denies fever/chills/rigors/neck pain or stiffness/worsening headache. He denies chest pain/palpitations/cough/shortness of breath/abdominal pain/nausea/vomiting/diarrhea His states that he has poor appetite at baseline as well as poor sleep and occasional headache. These have not worsened of late. ER Course: Lamictal 250mg PO, Dilantin 200mg PO, NSS x 500mL Allergies Allergy/AdvReac Type Severity Reaction Status Date / Time No Known Allergies Allergy ` Verified 02/20/21 21:20 Home Medications Medication Instructions Recorded Confirmed Type warfarin 2.5 mg tablet 2.5 mg PO .COMPLEX #30 tab 08/26/20 02/20/21 Rx warfarin 5 mg tablet 5 mg PO .COMPLEX #30 tab 08/26/20 02/20/21 Rx lorazepam 1 mg tablet 1 mg PO DAILY PRN 30 Days #30 tab 09/29/20 02/20/21 Rx lamotrigine 200 mg tablet 200 mg PO BID #60 tab 12/14/20 02/20/21 Rx lamotrigine 25 mg tablet 50 mg PO BID #120 tab 12/14/20 02/20/21 Rx phenytoin sodium extended 100 mg 200 mg PO BID 30 Days #120 cap 12/14/20 02/20/21 Rx capsule acetaminophen [Tylenol Extra 500 mg PO Q6H PRN 01/30/21 02/20/21 History Strength] amoxicillin 500 mg PO DAILY@1600 #30 cap 02/04/21 02/20/21 Rx butenafine [Lotrimin Ultra] 1 applic TOPICAL BID 02/20/21 02/20/21 History Past Med/Surg History Medical History (Updated 02/20/21 @ 23:36 by Anastasia Russ DO) CKD (chronic kidney disease) stage 2, GFR 60-89 ml/min Closed left clavicular fracture Complex partial seizure DVT of leg (deep venous thrombosis) Fall Hx of brain cancer Glioblastoma Multiforme - 2004 - s/p resection [facility] Meningitis multiple episodes Small bowel obstruction Surgical History H/O cataract removal with insertion of prosthetic lens H/O shoulder surgery Hx of brain surgery 2003 initial resection for GBM at [facility]; 2006 - 2nd surgery, this time at [facility], ultimately was discovered to have blood clot & scar tissue rather than recurrent cancer Family History Father CHF (congestive heart failure) Myocardial infarction Denies family history of Brain tumor Ovarian cancer Prostate cancer Breast cancer SBO (small bowel obstruction) Colorectal cancer Social History Smoking Status: Never smoker Second Hand Exposure: No; Hx Alcohol Use: No Hx Substance Use: No Preferred Language: Wolof Communication Ability: Effective Protection Agent Required: No Beliefs That Will Affect Care: None marital status: Current Living Situation: Spouse Current Living Situation Comment: lives in [facility]; 2 children 1st marriage; 2 children 2nd marriage 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 Safe at Home: Yes caffeine: No Dental Care, Regularly: Yes Physical Activity Frequency: Does not Exercise Seatbelt Use: never Sunscreen Use: No Assistive Devices: Glasses and Walker Review of Systems Review of Systems: All systems reviewed & are unremarkable except as noted in HPI & below Physical Exam Physical Exam: General: patient resting comfortably, NAD, non-toxic in appearance, AA&O x 3, hard of hearing bilaterally Skin: warm, dry, intact, +tinea present in groin HEENT: NC/AT, strabismus of right eye, PERRL, EOMI, anicteric sclera, conjunctiva without injection, external ear normal to inspection and nontender, nares patent, moist mucus membranes, dentition intact, no oropharyngeal lesions, neck supple, trachea midline, no LAD, no thyromegaly, no JVD Heart: +S1/S2, regular, no m/r/g Lungs: equal air entry bilaterally, no rales/rhonchi/wheezes Abd: +BS, soft, NT/ND, no masses/organomegaly/ascites Ext: warm, 2+ pulses in UE/LE bilaterally, no clubbing/cyanosis or edema Neuro: AA&O x 3, speech intact, no facial droop, diminished sensation of LUE/LLE, diminished strength of RUE 4/5, RLE 4/5 - states that strength seems to be improving Results & Data Results & Data ([facility]) Vital Signs (Past 12 Hours) Vital Signs Temp Pulse Resp BP Pulse Ox 02/20/21 21:30 86 16 150/96 H 94 02/20/21 21:08 85 19 144/98 H 95 02/20/21 21:01 89 23 95 02/20/21 20:30 84 19 138/100 95 02/20/21 20:17 89 22 137/95 94 02/20/21 20:00 88 18 94 02/20/21 19:43 36.7 C 89 19 126/94 93 02/20/21 19:37 90 22 126/94 94 Laboratory Results Laboratory Results WBC 7.52 K/uL (4.8-10.8) 02/20/21 19:50 RBC 4.28 M/uL (4.7-6.1) L 02/20/21 19:50 Hgb 14.6 g/dL (14.0-18.0) 02/20/21 19:50 Hct 41.1 % (42-52) L 02/20/21 19:50 MCV 96.0 fL (80-100) 02/20/21 19:50 MCH 34.1 pg (25-34) H 02/20/21 19:50 MCHC 35.5 g/dL (32-36) 02/20/21 19:50 RDW Std Deviation 49.1 fL (36.4-46.3) H 02/20/21 19:50 RDW Coeff of Paul 14.3 % (11.5-14.5) 02/20/21 19:50 Plt Count 196 K/uL (130-400) 02/20/21 19:50 MPV 9.2 fL (7.4-10.4) 02/20/21 19:50 Immature Gran % (Auto) 0.4 % 02/20/21 19:50 Neut % (Auto) 71.8 % 02/20/21 19:50 Lymph % (Auto) 18.2 % 02/20/21 19:50 Gem % (Auto) 8.6 % 02/20/21 19:50 Eos % (Auto) 0.9 % 02/20/21 19:50 Baso % (Auto) 0.1 % 02/20/21 19:50 Neut # (Auto) 5.39 K/uL (1.4-6.5) 02/20/21 19:50 Lymph # (Auto) 1.37 K/uL (1.2-3.4) 02/20/21 19:50 Gem # (Auto) 0.65 K/uL (0.11-0.59) H 02/20/21 19:50 Eos # (Auto) 0.07 K/uL (0-0.5) 02/20/21 19:50 Baso # (Auto) 0.01 K/uL (0-0.2) 02/20/21 19:50 Immature Gran # (Auto) 0.03 K/uL (0.00-0.02) H 02/20/21 19:50 PT 10.1 Seconds (9.0-12.0) 02/20/21 19:50 INR 1.0 (0.9-1.1) 02/20/21 19:50 APTT 25.7 Seconds (21.0-31.0) 02/20/21 19:50 PTT Ratio 1.0 02/20/21 19:50 Sodium 137 mmol/L (136-145) 02/20/21 19:50 Potassium 3.9 mmol/L (3.5-5.1) 02/20/21 19:50 Chloride 104 mmol/L (98-107) 02/20/21 19:50 Carbon Dioxide 26 mmol/L (21-32) 02/20/21 19:50 Anion Gap 7.0 (3-11) 02/20/21 19:50 BUN 22 mg/dl (7-18) H 02/20/21 19:50 Creatinine 0.83 mg/dl (0.6-1.4) 02/20/21 19:50 Est Cr Clr Drug Dosing 107.6 ml/min 02/20/21 19:50 Est GFR ( Amer) 107.8 ml/min 02/20/21 19:50 Est GFR (Non-Af Amer) 93.0 ml/min 02/20/21 19:50 BUN/Creatinine Ratio 25.8 (10-20) H 02/20/21 19:50 Glucose 100 mg/dl (70-99) H 02/20/21 19:50 Calcium 9.2 mg/dl (8.5-10.1) 02/20/21 19:50 Magnesium 2.0 mg/dl (1.8-2.4) 02/20/21 19:50 Total Bilirubin 0.3 mg/dl (0.2-1) 02/20/21 19:50 AST 27 U/L (15-37) 02/20/21 19:50 ALT 64 U/L (12-78) 02/20/21 19:50 Alkaline Phosphatase 196 U/L (45-117) H 02/20/21 19:50 Troponin I 0.091 ng/ml (0-0.045) H* 02/20/21 19:50 Total Protein 7.5 gm/dl (6.4-8.2) 02/20/21 19:50 Albumin 3.4 gm/dl (3.4-5.0) 02/20/21 19:50 Globulin 4.1 gm/dl (2.5-4.0) H 02/20/21 19:50 Albumin/Globulin Ratio 0.8 (0.9-2) L 02/20/21 19:50 Urine Color Yellow 02/20/21 Unknown Urine Appearance Clear (Clear) 02/20/21 Unknown Urine pH 5.5 (4.5-7.5) 02/20/21 Unknown Ur Specific Kendrick 1.029 (1.000-1.030) 02/20/21 Unknown Urine Protein Negative (Negative) 02/20/21 Unknown Urine Glucose (UA) Negative (Negative) 02/20/21 Unknown Urine Ketones Negative (Negative) 02/20/21 Unknown Urine Blood Negative (Negative) 02/20/21 Unknown Urine Nitrite Negative (Negative) 02/20/21 Unknown Urine Bilirubin Negative (Negative) 02/20/21 Unknown Urine Urobilinogen Negative (Negative) 02/20/21 Unknown Ur Leukocyte Esterase Negative (Negative) 02/20/21 Unknown Phenytoin 5.2 mcg/ml (10-20) L 02/20/21 21:[address] 02/20/21 20:[address] DOSE: 614.27 mGy.cm HISTORY: Seizure. TECHNIQUE: Multiaxial CT images of the head were performed without the use of intravenous contrast. Automated exposure control was utilized for this study. A dose lowering technique was utilized adhering to the principles of ALARA. Comparison: Head CT 01/30/2021. Findings: There are postsurgical changes of a right temporoparietal craniotomy. There is persistent right temporal and parieto-occipital lobe encephalomalacia. There is no CT evidence of acute cortical infarction. There is no acute hemorrhage. There are patchy white matter hypodensities likely on a small vessel basis. There is compensatory dilatation of the right lateral ventricle. There is stable pontine and midbrain calcifications. There is a chronic right mastoid effusion. IMPRESSION: 1. No acute intracranial findings 2. Stable postsurgical changes of a right temporoparietal craniotomy with temporal parietal and occipital lobe encephalomalacia 3. Stable chronic right mastoid effusion. 4. Stable calcifications within the kalpesh and midbrain ACT 112: Negative or not required by law. Electronically signed by: Tal Harris M.D. 02/20/2021 9:13 PM Chest X-Ray 02/20/21 20:13 XR chest 1V portable HISTORY: Seizure. COMPARISON: Chest 01/30/2021. FINDINGS: No pneumothorax. No pleural effusions. There is elevation of the right hemidiaphragm, unchanged. Left basilar linear densities favor scarring. This remains unchanged. No new focal lung consolidations to suggest pneumonia. No evidence for pulmonary edema. The heart remains mildly enlarged. Old, healed left clavicle fracture. IMPRESSION: No significant change compared to the prior study. No acute process. ACT 112: Negative or not required by law. Electronically signed by: Tal Harris M.D. 02/20/2021 8:41 PM Code Status & VTE Plan VTE Prophylaxis Plan VTE Prophylaxis will be ordered: Yes PG Care Time/CCT Total # of Minutes Spent Total Time Spent with Patient: Total time spent is greater than 50% in coordination of care (as documented) at patient's floor/unit and/or counseling patient: Coding Level of Care Code 88105 OBS Care - Level 3 Diagnoses Seizure R56.9 Left-sided weakness R53.1 Meningitis G03.9 AVANI (obstructive sleep apnea) G47.33 DVT of leg (deep venous thrombosis) I82.409 Affected thrombotic vein of extremity: unspecified vein of extremity Chronicity: unspecified Laterality: unspecified laterality CKD (chronic kidney disease) stage 2, GFR 60-89 ml/min N18.2 Hx of brain cancer Z85.841 (1) DVT of leg (deep venous thrombosis) Affected thrombotic vein of extremity: unspecified vein of extremity Chronicity: unspecified Laterality: unspecified laterality Qualified Code(s): I82.409 - Acute embolism and thrombosis of unspecified deep veins of unspecified lower extremity
[2021-02-21] MEDS ORDERED: ONDANSETRON INJ 2 MG/ML 2 ML VIAL IV PRN (02:39)
[2021-02-21] MEDS ORDERED: DOCUSATE SODIUM 100 MG CAP PO PRN (02:39)
[2021-02-21] MEDS ORDERED: LORazepam 1 MG/2 ML VIAL IV PRN ×2 (02:39→11:24)
[2021-02-21] MEDS ORDERED: ACETAMINOPHEN 500 MG TAB PO PRN (03:09)
[2021-02-21 05:57] LABS: Prothrombin Time 10.2 Seconds (9.0-12.0)
[2021-02-21] MEDS: lamoTRIgine 100 MG TAB PO SCH ×2 (08:17→21:07)
[2021-02-21] MEDS: PHENYTOIN SODIUM ER 100 MG CAP PO SCH ×2 (08:18→21:06)
[2021-02-21] MEDS: lamoTRIgine 25 MG TAB PO SCH ×2 (08:18→21:05)
--- NOTE | 2021-02-21 08:31 | Electrocardiogram Report ---
Test Reason : Blood Pressure : / mmHG Vent. Rate : 088 BPM Atrial Rate : 088 BPM P-R Int : 150 ms QRS Dur : 092 ms QT Int : 396 ms P-R-T Axes : 034 -03 038 degrees QTc Int : 479 ms Normal sinus rhythm Normal ECG When compared with ECG of 30-JAN-2021 08:28, No significant change was found Confirmed by Walker Boykin ([id number]) on 02/21/2021 8:31:40 AM Referred By: REFERRED SELF Confirmed By:Walker Boykin
--- NOTE | 2021-02-21 09:40 | Neurology Consultation ---
Date of Consultation February 21, 2021 Assessment & Plan (1) Complex partial seizure: (2) Hemiparesis of left nondominant side: (3) Hx of brain cancer: This patient has a history of glioblastoma surgery in 2003 with detailed history noted in the HPI section. He has had longstanding left jenae paresis and complex partial seizures emanating from the right hemisphere ever since this surgery. He had a seizure yesterday ( the 1st 1 in over 14 months ) and has been with some additional postictal left-sided weakness, arm greater than leg, since. This is improving. He does not have any headache or meningeal signs. He does not have any signs of infection. His Dilantin level is low at 5.2. This is a little uncharacteristic of him as he typically has a quite normal level. I wonder if he had missed some doses. A Lamictal level is pending In addition, this patient has some mild cognitive impairment which has been getting worse over the last few years, likely a combination of degenerative changes postsurgical and medication. This has been mild and stable. Recommendations: 1. consider MRI of the brain with without contrast to evaluate his postop glioblastoma site and look for any new lesions 2. obtain Lamictal level. 3. continue anticonvulsants at his current doses. Encourage compliance. 4. I can follow as an outpatient. Overall, I spent a total of 90 minutes with this case including review of records, review of CT films, direct evaluation the patient at bedside, and discussion of the case with the patient at bedside, RN at bedside, and Dr. Baird including differential diagnosis and treatment options. History of Present Illness Reason for Consultation: Patient is a 65-year-old who I was asked to see at the request of Dr. Russ, for neurologic consultation regarding seizures and other issues Requesting Physician: Dr. Villar Attending Physician: Kiana Baird MD History of Present Illness This patient is well-known to me, having followed him for at least 12 years. In 2003 he had a right temporal glioblastoma multiforme removed at [facility]. He received postop radiation and Temodar chemotherapy. In 2006 Dr. Huerta reoperated removing some recurrent tumor, scar and blood clots and then the patient had chemotherapy with irinotecan. Following this he has had no tumor recurrence although his most recent MRI was in October of 2017. He tends to refuse MRIs claiming that he does not have any more cancer. 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 He has been left with some left jenae paresis, arm greater than leg is which is chronic. He has been fairly well controlled on lamotrigine 250 milligrams twice daily and phenytoin 200 milligrams twice daily. in December of 2020 a phenytoin level was 16.1 and lamotrigine level 2.5 ( low). He was fairly well controlled I last saw him in clinic December 14, 2020. At that time he had had no seizures in over 1 year. 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 In 2014 it was a Gram-negative bacillus as well. He apparently has a chronic CSF leak in his right temporal lobe area known by Dr. Huerta in 2012. There was a discussion at that time putting a lumboperitoneal shunt, but this was never done. In 2018 he had an episode of small-bowel obstruction requiring no surgery. He also had an episode of left lower lobe DVT and is on warfarin. In July of 2020 he had a left hip fracture repair by Dr. Leija. Sometime around 10 a.m. on February 20 the patient felt a cold feeling like a chill followed by some twitching of his left hand. He then apparently went into a seizure because he "woke up in the couch she was sitting on very tired and his left side was weaker than usual. weakness did not get better over a few hours as usual. He was brought to the emergency room that day arriving at 1937, with a temperature of 36.7, Pulse of 90, blood pressure 126/94, respiratory rate 22, and O2 saturation 94 percent. On exam he had some anxiety, left arm greater than leg weakness, and no other abnormalities. He had no fever, meningeal signs, or elevated white count. Do not have a headache. CBC was unremarkable and Chem profile showed a mildly elevated BUN. Alk-phos was elevated at 196. Dilantin level was 5.2 the chest x-ray was unremarkable. CT scan of the head showed no acute changes. This morning the patient feels much improved. He still has some left arm weakness which is a little more than usual but his left leg feels about the same as baseline. He has no headache or dizziness. He has no neck pain. He is still afebrile. Allergies Allergy/AdvReac Type Severity Reaction Status Date / Time No Known Allergies Allergy ` Verified 02/20/21 21:20 Home Medications Medication Instructions Recorded Confirmed Type warfarin 2.5 mg tablet 2.5 mg PO .COMPLEX #30 tab 08/26/20 02/20/21 Rx warfarin 5 mg tablet 5 mg PO .COMPLEX #30 tab 08/26/20 02/20/21 Rx lorazepam 1 mg tablet 1 mg PO DAILY PRN 30 Days #30 tab 09/29/20 02/20/21 Rx lamotrigine 200 mg tablet 200 mg PO BID #60 tab 12/14/20 02/20/21 Rx lamotrigine 25 mg tablet 50 mg PO BID #120 tab 12/14/20 02/20/21 Rx phenytoin sodium extended 100 mg 200 mg PO BID 30 Days #120 cap 12/14/20 02/20/21 Rx capsule acetaminophen [Tylenol Extra 500 mg PO Q6H PRN 01/30/21 02/20/21 History Strength] amoxicillin 500 mg PO DAILY@1600 #30 cap 02/04/21 02/20/21 Rx butenafine [Lotrimin Ultra] 1 applic TOPICAL BID 02/20/21 02/20/21 History Patient History Medical History CKD (chronic kidney disease) stage 2, GFR 60-89 ml/min Closed left clavicular fracture Complex partial seizure DVT of leg (deep venous thrombosis) Fall Hx of brain cancer Glioblastoma Multiforme - 2003 - s/p resection [facility] Meningitis multiple episodes Small bowel obstruction Surgical History H/O cataract removal with insertion of prosthetic lens H/O shoulder surgery Hx of brain surgery 2003 initial resection for GBM at [facility]; 2006 - 2nd surgery, this time at [facility], ultimately was discovered to have blood clot & scar tissue rather than recurrent cancer Family History Father , in his mid 60s of cardiac issues. CHF (congestive heart failure) Myocardial infarction Denies family history of Brain tumor Ovarian cancer Prostate cancer Breast cancer SBO (small bowel obstruction) Colorectal cancer Social History (Updated 02/21/21 @ 09:47 by Bentley Irizarry MD) Smoking Status: Never smoker Second Hand Exposure: No; Hx Alcohol Use: No Hx Substance Use: No Preferred Language: Italian Communication Ability: Effective Bread Icer Required: No Beliefs That Will Affect Care: None marital status: Current Living Situation: Spouse Current Living Situation Comment: lives in [facility]; 2 children 1st marriage; 2 children 2nd marriage current occupational status: retired 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 The patient is awake, alert, and attentive. Speech is normal without any aphasia or dysarthria. he can name objects, repeat phrases, and has normal spontaneous speech. Mentation and thought processes are intact, with orientation to person, place and time, and normal fund of knowledge. Attention and concentration are normal. Mood and affect are normal and appropriate. General appearance and grooming are normal. Short and long-term memory are somewhat impaired. Pupils are 4 mm bilaterally and reactive to light. Extraocular eye muscles are intact without nystagmus , although he has a marked right exotropia (which is old). Visual acuity and visual anne seem normal grossly to confrontation. There are no deficits to sensation in the face in all 3 distributions of the fifth cranial nerve bilaterally. Corneal reflexes are positive bilaterally. Facial strength seems normal bilaterally, however, there is a little asymmetry of the corner of mouth on the left compared to the right. Hearing seems mildly decreased bilaterally. Palate moves well without asymmetry. There is normal sternocleidomastoid and trapezius (shoulder shrug) strength bilaterally. Tongue is midline with good strength bilaterally. Neck has a full range of motion without discomfort. There are no cervical bruits bilaterally. There are no cranial or ocular bruits. Heart is without murmur. There is a regular rhythm and rate. Cervical, thoracic, and lumbar spine are nontender to palpation. Gait was not tested but stance sitting up in chair is quite normal. With outstretched arms there is no drift on the left. There are no resting, postural, or action tremors. There is no ataxia with finger to nose testing. There is decreased facility in the left hand. No other abnormal involuntary movements are noted. Motor strength is 5/5 diffusely right upper extremity including deltoids, biceps, triceps, brachioradialis, wrist flexors and extensors, tie cutter, and intrinsic hand muscles. Motor strength is 4-/5 diffusely in these muscles on the left. Motor strength is 5/5 diffusely Right lower extremity including hip flexors, quadriceps, hamstrings, gastrocnemius, tibialis anterior, tibialis posterior, and Peroneii muscles. The left lower extremity is 4+/5 diffusely. There is mild spasticity in the left upper extremity. Sensory examination is intact to touch and pin throughout all 4 limbs diffusely. Reflexes are 2/4 in the biceps, triceps, brachioradialis, and quadriceps tendons bilaterally. Achilles tendon reflexes are 1/4 bilaterally There is no clonus bilaterally. Toes are downgoing with plantar stimulation on the right and upgoing with plantar stimulation on the left. Peripheral pulses are present and of normal quality distally in all 4 limbs. There is no peripheral edema noted in the limbs. Results & Data ([facility]) Vital Signs (Past 12 Hours) Vital Signs Temp Pulse Pulse Pulse Resp BP BP 02/21/21 07:45 36.4 C L 18 L 18 136/97 02/21/21 02:39 36 C L 79 16 02/21/21 01:30 85 16 123/87 02/21/21 00:01 89 17 128/87 02/20/21 23:40 94 H 18 140/107 H 02/20/21 22:00 86 19 145/95 H BP Pulse Ox 02/21/21 07:45 96 02/21/21 02:39 163/105 H 95 02/21/21 01:30 02/21/21 00:01 02/20/21 23:40 02/20/21 22:00 PG Care Time/CCT Total # of Minutes Spent Total Time Spent with Patient: Total time spent is greater than 50% in coordination of care (as documented) at patient's floor/unit and/or counseling patient: Coding Level of Care Code 65628 Initial Inpt Care Lvl 3 Diagnoses Complex partial seizure G40.209 Hemiparesis of left nondominant side G81.94 Hemiparesis etiology: unspecified Hx of brain cancer Z85.841 Time Spent (min) 90 Comment Add modifiers as indicated (1) Hemiparesis of left nondominant side Hemiparesis etiology: unspecified Qualified Code(s): G81.94 - Hemiplegia, unspecified affecting left nondominant side
[2021-02-21] MEDS ORDERED: GADOBUTROL 30ML VIAL IV ONE (12:52)
--- NOTE | 2021-02-21 14:09 | Magnetic Resonance Report ---
MRI OF THE BRAIN WITHOUT AND WITH IV CONTRAST CLINICAL HISTORY: seizure, left sided weakness COMPARISON STUDY: MRI of the brain November 07, 2017. PET/CT February 20, 2021. TECHNIQUE: Utilizing a 1.5 Teagan magnet and dedicated coil, multiplanar, multiecho imaging of the br ain was performed pre and postcontrast administration. IV administration of 11.5 mL of Gadavist cont rast was uneventful. Thin cut T1 post contrast imaging was performed with multiplanar reformats. FINDINGS: There are no foci of restricted diffusion to suggest acute infarct. No acute intracranial h emorrhage, midline shift or mass effect is present. A right temporal parietal craniotomy is noted. Th e appearance of the operative bed with encephalomalacia within the right parietal, temporal and occip ital lobes is unchanged. There is no nodular enhancement to suggest recurrent malignancy. Thin dural enhancement within the operative bed is unchanged. This represents postsurgical change. Associated di latation of the right lateral ventricle is unchanged. Basal cisterns are patent. There are no extra-a xial fluid collections. No intracranial mass or pathologic enhancement is identified. Calvarial signa l is stable. Right mastoid effusion is unchanged. White matter T2 hyperintense foci are unchanged. Th norah favor small vessel disease. IMPRESSION: 1. No acute intracranial findings. 2. Stable post operative findings within the right temporal, parietal and occipital lobes. No enhance ment to suggest recurrent malignancy. No change in appearance of the brain. 3. No change in a right mastoid effusion. ACT 112: Negative or not required by law. Electronically signed by: Jd Gonzalez M.D. 02/21/2021 2:08 PM
--- NOTE | 2021-02-21 15:57 | Hospitalist Progress Note ---
Date of Service February 21, 2021 Assessment & Plan (1) Seizure: 65yo male with history of GBM s/p resection, baseline left sided weakness, seizure disorder presenting after tonic-clonic seizure at home with prolonged worsening of left sided weakness. #Seizure: Patient with baseline weakness of left side secondary to his GBM resection. Left sided weakness frequently worsens following seizure then returns to baseline. However, weakness has persisted throughout the day. Do not strongly suspect acute event such as CVA. -Ativan PRN -Continue Dilantin and Lamictal -Neuro checks per protocol -Precautions -MRI brain -Neurology consultation following recommendations -Obtain brain MRI -> no acute intracranial findings, stable postoperative findings within the right temporal parietal occipital lobes -Low dilantin level. Last multiple readings with normal range. Possibly missing doses. Continue home dose. outpatient follow up. #Left-sided weakness: As above #Meningitis: Patient with history of recurrent meningitis, most recently last month for which he was hospitalized. He is to be taking Amoxicillin for chronic suppressive therapy. However, he has not been taking this medication due to the fact that it worsens his tinea cruris infection. Do not suspect acute meningitis at this time. -Will resume Amoxicillin. He is to continue this indefinitely -Continue topical antifungal - Lotrimin BID #AVANI (obstructive sleep apnea): Patient does not use CPAP, discussed the importance of compliance with CPAP to prevent the consequences of chronic obstructive sleep apnea -Monitor -CPAP ordered #DVT of leg (deep venous thrombosis): Patient with history of DVTs, is to be on daily Coumadin. He has not been taking this medication due to increased bruising. INR=1 -Resume Coumadin -Daily INR -Lovenox for DVT prophylaxis 40 mg subcu every 24 hours until INR is therapeutic #CKD (chronic kidney disease) stage 2, GFR 60-89 ml/min: Near baseline -Continue to monitor renal function -Avoid nephrotoxic agents #Hx of brain cancer: History of glioblastoma s/p resection. Seizures as above. Patient requiring assistance with ambulation and transfers at this time #Ambulatory dysfunction Patient having increasing difficulties with ambulation. -PT OT consulted recommending rehab -Case management consulted for placement FENa: Regular diet Code Status: DNR/DNI DVT PPX: Lovenox until INR is therapeutic PT/OT: Consulted recommending rehab Dispo: [facility]Sur with telemetry Sb Russ MD PGY 2, FCM This chart was completed utilizing [employer] voice recognition software. Grammatical errors, random word insertions, pronoun errors, and in complete sentences are an occasional consequence of the system. Any questions or concerns about the content, text, or information contained within the body of this dictation should be addressed directly to the physician for clarification. Admission and Anticipated Discharge Date Admission Date: February 20, 2021 Supervising Physician Co-Signing Physician Notes Resident Physician Supervision Note: I independently interviewed and examined the patient and verified the gibbs history and physical, reviewed labs and image studies and agree with resident Dr. Sb Russ findings and care plan. Subjective Patient lying in bed this morning in no acute distress. Patient reports significant improvement in his symptoms. Patient demonstrated to me how he could raise his arm to the level he was previously able to. He remembers having a seizure yesterday and also frequently has seizures. He states after his seizures he usually feels weak on his left hand side. This time his weakness persisted longer than previously, plus he felt it was more significant resulting in his current presentation. His main concern is his ability to ambulate and mobility. Otherwise patient is tolerating his diet, voiding, stooling in no acute distress. Acute concerns related to pt/ot evaluation all questions answered Physical Exam Physical Exam: General: Sitting up in his chair in no acute distress looking at the window HEENT: Normocephalic atraumatic, right eye palsy Neck: Normal to visual inspection Cardiac:Regular rate and rhythm I did not appreciate significant murmurs rubs or gallops normal S1, normal S2 Respiratory: Clear to auscultation bilaterally with symmetrical chest expansion, I did not appreciate significant wheezes, rales, rhonchi GI: Soft, nontender, nondistended, bowel sounds present Neuro: EOMI with the exception of known right exotropia, CN II through XII are otherwise normal. Left-sided upper and lower extremity weakness. Psych: Calm and cooperative with the interview Results & Data Results & Data ([facility]) Vital Signs (Past 12 Hours) Vital Signs Temp Pulse Resp BP Pulse Ox 02/21/21 07:45 36.4 C L 18 L 18 136/97 96 Laboratory Results 02/21/21 02/21/21 02/20/21 Range/Units 05:22 05:22 Unknown WBC (4.8-10.8) K/uL RBC (4.7-6.1) M/uL Hgb (14.0-18.0) g/dL Hct (42-52) % MCV (80-100) fL MCH (25-34) pg MCHC (32-36) g/dL RDW Std Deviation (36.4-46.3) fL RDW Coeff of Paul (11.5-14.5) % Plt Count (130-400) K/uL MPV (7.4-10.4) fL Immature Gran % (Auto) % Neut % (Auto) % Lymph % (Auto) % [place] % (Auto) % Eos % (Auto) % Baso % (Auto) % Neut # (Auto) (1.4-6.5) K/uL Lymph # (Auto) (1.2-3.4) K/uL [place] # (Auto) (0.11-0.59) K/uL Eos # (Auto) (0-0.5) K/uL Baso # (Auto) (0-0.2) K/uL Immature Gran # (Auto) (0.00-0.02) K/uL PT 10.2 (9.0-12.0) Seconds INR 1.0 (0.9-1.1) APTT (21.0-31.0) Seconds PTT Ratio Sodium (136-145) mmol/L Potassium (3.5-5.1) mmol/L Chloride (98-107) mmol/L Carbon Dioxide (21-32) mmol/L Anion Gap (3-11) BUN (7-18) mg/dl Creatinine (0.6-1.4) mg/dl Est Cr Clr Drug Dosing ml/min Est GFR ( Amer) ml/min Est GFR (Non-Af Amer) ml/min BUN/Creatinine Ratio (10-20) Glucose (70-99) mg/dl Calcium (8.5-10.1) mg/dl Magnesium (1.8-2.4) mg/dl Total Bilirubin (0.2-1) mg/dl AST (15-37) U/L ALT (12-78) U/L Alkaline Phosphatase (45-117) U/L Troponin I 0.053 H* (0-0.045) ng/ml Total Protein (6.4-8.2) gm/dl Albumin (3.4-5.0) gm/dl Globulin (2.5-4.0) gm/dl Albumin/Globulin Ratio (0.9-2) Urine Color Yellow Urine Appearance Clear (Clear) Urine pH 5.5 (4.5-7.5) Ur Specific [place] 1.029 (1.000-1.030) Urine Protein Negative (Negative) Urine Glucose (UA) Negative (Negative) Urine Ketones Negative (Negative) Urine Blood Negative (Negative) Urine Nitrite Negative (Negative) Urine Bilirubin Negative (Negative) Urine Urobilinogen Negative (Negative) Ur Leukocyte Esterase Negative (Negative) Phenytoin (10-20) mcg/ml COVID-19 Eval Order SARS-CoV-2 (PCR) (Negative) 02/20/21 02/20/21 02/20/21 Range/Units 23:40 23:40 21:32 WBC (4.8-10.8) K/uL RBC (4.7-6.1) M/uL Hgb (14.0-18.0) g/dL Hct (42-52) % MCV (80-100) fL MCH (25-34) pg MCHC (32-36) g/dL RDW Std Deviation (36.4-46.3) fL RDW Coeff of Paul (11.5-14.5) % Plt Count (130-400) K/uL MPV (7.4-10.4) fL Immature Gran % (Auto) % Neut % (Auto) % Lymph % (Auto) % [place] % (Auto) % Eos % (Auto) % Baso % (Auto) % Neut # (Auto) (1.4-6.5) K/uL Lymph # (Auto) (1.2-3.4) K/uL [place] # (Auto) (0.11-0.59) K/uL Eos # (Auto) (0-0.5) K/uL Baso # (Auto) (0-0.2) K/uL Immature Gran # (Auto) (0.00-0.02) K/uL PT (9.0-12.0) Seconds INR (0.9-1.1) APTT (21.0-31.0) Seconds PTT Ratio Sodium (136-145) mmol/L Potassium (3.5-5.1) mmol/L Chloride (98-107) mmol/L Carbon Dioxide (21-32) mmol/L Anion Gap (3-11) BUN (7-18) mg/dl Creatinine (0.6-1.4) mg/dl Est Cr Clr Drug Dosing ml/min Est GFR ( Amer) ml/min Est GFR (Non-Af Amer) ml/min BUN/Creatinine Ratio (10-20) Glucose (70-99) mg/dl Calcium (8.5-10.1) mg/dl Magnesium (1.8-2.4) mg/dl Total Bilirubin (0.2-1) mg/dl AST (15-37) U/L ALT (12-78) U/L Alkaline Phosphatase (45-117) U/L Troponin I (0-0.045) ng/ml Total Protein (6.4-8.2) gm/dl Albumin (3.4-5.0) gm/dl Globulin (2.5-4.0) gm/dl Albumin/Globulin Ratio (0.9-2) Urine Color Urine Appearance (Clear) Urine pH (4.5-7.5) Ur Specific [place] (1.000-1.030) Urine Protein (Negative) Urine Glucose (UA) (Negative) Urine Ketones (Negative) Urine Blood (Negative) Urine Nitrite (Negative) Urine Bilirubin (Negative) Urine Urobilinogen (Negative) Ur Leukocyte Esterase (Negative) Phenytoin 5.2 L (10-20) mcg/ml COVID-19 Eval Order Covid19 at [facility] SARS-CoV-2 (PCR) NEGATIVE (Negative) 02/20/21 02/20/21 02/20/21 Range/Units 19:50 19:50 19:50 WBC 7.52 (4.8-10.8) K/uL RBC 4.28 L (4.7-6.1) M/uL Hgb 14.6 (14.0-18.0) g/dL Hct 41.1 L (42-52) % MCV 96.0 (80-100) fL MCH 34.1 H (25-34) pg MCHC 35.5 (32-36) g/dL RDW Std Deviation 49.1 H (36.4-46.3) fL RDW Coeff of Paul 14.3 (11.5-14.5) % Plt Count 196 (130-400) K/uL MPV 9.2 (7.4-10.4) fL Immature Gran % (Auto) 0.4 % Neut % (Auto) 71.8 % Lymph % (Auto) 18.2 % [place] % (Auto) 8.6 % Eos % (Auto) 0.9 % Baso % (Auto) 0.1 % Neut # (Auto) 5.39 (1.4-6.5) K/uL Lymph # (Auto) 1.37 (1.2-3.4) K/uL [place] # (Auto) 0.65 H (0.11-0.59) K/uL Eos # (Auto) 0.07 (0-0.5) K/uL Baso # (Auto) 0.01 (0-0.2) K/uL Immature Gran # (Auto) 0.03 H (0.00-0.02) K/uL PT 10.1 (9.0-12.0) Seconds INR 1.0 (0.9-1.1) APTT 25.7 (21.0-31.0) Seconds PTT Ratio 1.0 Sodium 137 (136-145) mmol/L Potassium 3.9 (3.5-5.1) mmol/L Chloride 104 (98-107) mmol/L Carbon Dioxide 26 (21-32) mmol/L Anion Gap 7.0 (3-11) BUN 22 H (7-18) mg/dl Creatinine 0.83 (0.6-1.4) mg/dl Est Cr Clr Drug Dosing 107.6 ml/min Est GFR ( Amer) 107.8 ml/min Est GFR (Non-Af Amer) 93.0 ml/min BUN/Creatinine Ratio 25.8 H (10-20) Glucose 100 H (70-99) mg/dl Calcium 9.2 (8.5-10.1) mg/dl Magnesium 2.0 (1.8-2.4) mg/dl Total Bilirubin 0.3 (0.2-1) mg/dl AST 27 (15-37) U/L ALT 64 (12-78) U/L Alkaline Phosphatase 196 H (45-117) U/L Troponin I 0.091 H* (0-0.045) ng/ml Total Protein 7.5 (6.4-8.2) gm/dl Albumin 3.4 (3.4-5.0) gm/dl Globulin 4.1 H (2.5-4.0) gm/dl Albumin/Globulin Ratio 0.8 L (0.9-2) Urine Color Urine Appearance (Clear) Urine pH (4.5-7.5) Ur Specific [place] (1.000-1.030) Urine Protein (Negative) Urine Glucose (UA) (Negative) Urine Ketones (Negative) Urine Blood (Negative) Urine Nitrite (Negative) Urine Bilirubin (Negative) Urine Urobilinogen (Negative) Ur Leukocyte Esterase (Negative) Phenytoin (10-20) mcg/ml COVID-19 Eval Order SARS-CoV-2 (PCR) (Negative) Medications Administered Current Inpatient Medications Acetaminophen (Acetaminophen 500 Mg Tab) 500 mg PO Q6H PRN PRN Reason: Pain Stop: 03/23/21 03:08 Amoxicillin (Amoxicillin 500 Mg Cap) 500 mg PO DAILY@1600 [facility] Stop: 03/23/21 15:59 Docusate Sodium (Docusate Sodium 100 Mg Cap) 100 mg PO BID PRN PRN Reason: Constipation Stop: 03/23/21 02:38 Lorazepam (Ativan) 1 mg in 2 mls @ 0.5 mls/min IV UD PRN PRN Reason: seizure Stop: 03/23/21 02:38 Lorazepam (Ativan) 1 mg in 2 mls @ 2 mls/min IV ONE PRN PRN Reason: For MRI Stop: 03/23/21 11:23 Lamotrigine (Lamotrigine 100 Mg Tab) 200 mg PO BID [facility] Stop: 03/23/21 08:59 Last Admin: 02/21/21 08:17 Dose: 200 mg Documented by: Lamotrigine (Lamotrigine 25 Mg Tab) 50 mg PO BID [facility] Stop: 03/23/21 08:59 Last Admin: 02/21/21 08:18 Dose: 50 mg Documented by: Miscellaneous (Lotrimin Ultra~Order Awaiting Action) 1 ea N/A QS [facility] Stop: 03/23/21 07:59 Last Admin: 02/21/21 06:57 Dose: Not Given Documented by: Ondansetron HCl (Ondansetron Inj 2 Mg/Ml 2 Ml Vial) 4 mg IV Q6H PRN PRN Reason: Nausea Stop: 03/23/21 02:38 Phenytoin Sodium (Phenytoin Sodium Er 100 Mg Cap) 200 mg PO BID [facility] Stop: 03/23/21 08:59 Last Admin: 02/21/21 08:18 Dose: 200 mg Documented by: Warfarin Sodium (Warfarin Sod 2.5 Mg Tab) 2.5 mg PO MoFr@1600 [facility] Stop: 03/24/21 15:59 Warfarin Sodium (Warfarin Sod 5 Mg Tab) 5 mg PO SuTuWeThSa@1600 [facility] Stop: 03/23/21 15:59 Resident Activity Tracking Resident Involvement: Resident Care Provided Care Provided: Adult Hospital Medicine
[2021-02-21] MEDS ORDERED: WARFARIN SOD 5 MG TAB PO SCH (16:00)
[2021-02-21] MEDS: AMOXICILLIN 500 MG CAP PO SCH (16:11)
[2021-02-21] MEDS: ENOXAPARIN INJ 40 MG/0.4 ML SYR SQ SCH (16:12)
[2021-02-22 07:02] LABS: Basophils # (auto) 0.01 K/uL (0-0.2); Basophils % (auto) 0.2 %; Eosinophils # (auto) 0.18 K/uL (0-0.5); Eosinophils % (auto) 3.2 %; Hematocrit (blood only) 43.6 % (42-52); Immature Granulocytes # (auto) 0.01 K/uL (0.00-0.02); Immature Granulocytes % (auto) 0.2 %; Lymphocytes # (auto) 1.09 K/uL (1.2-3.4); Lymphocytes % (auto) 19.1 %; Mean Corpuscular Hemoglobin 33.8 pg (25-34); Mean Corpuscular Hgb Conc 34.4 g/dL (32-36); Mean Corpuscular Volume 98.2 fL (80-100); Mean Platelet Volume 8.9 fL (7.4-10.4); Monocytes # (auto) 0.42 K/uL (0.11-0.59); Monocytes % (auto) 7.4 %; Neutrophils # (auto) 3.99 K/uL (1.4-6.5); Neutrophils % (auto) 69.9 %; Platelet Count 207 K/uL (130-400); RDW Coefficient of Variation 14.1 % (11.5-14.5); RDW Standard Deviation 50.2 fL (36.4-46.3); Red Blood Count 4.44 M/uL (4.7-6.1)
[2021-02-22 07:10] LABS: Prothrombin Time 10.2 Seconds (9.0-12.0)
--- NOTE | 2021-02-22 07:18 | Hospitalist Progress Note ---
Date of Service February 22, 2021 Assessment & Plan (1) Seizure: 65yo male with history of GBM s/p resection, baseline left sided weakness, seizure disorder presenting after tonic-clonic seizure at home with prolonged worsening of left sided weakness. #Seizure: Patient with baseline weakness of left side secondary to his GBM resection. Left sided weakness frequently worsens following seizure then returns to baseline. However, weakness has persisted throughout the day. Do not strongly suspect acute event such as CVA. -Ativan PRN -Continue Dilantin and Lamictal -Neuro checks per protocol -Neurology consultation following recommendations -Obtain brain MRI -> no acute intracranial findings, stable postoperative findings within the right temporal parietal occipital lobes -Low dilantin level. Last multiple readings with normal range. Possibly missing doses. Continue home dose. outpatient follow up. #Left-sided weakness: As above #Meningitis: Patient with history of recurrent meningitis, most recently last month for which he was hospitalized. He is to be taking Amoxicillin for chronic suppressive therapy. However, he has not been taking this medication due to the fact that it worsens his tinea cruris infection. Do not suspect acute meningitis at this time. -Will resume Amoxicillin. He is to continue this indefinitely -Continue topical antifungal - Lotrimin BID #AVANI (obstructive sleep apnea): Patient does not use CPAP, discussed the importance of compliance with CPAP to prevent the consequences of chronic obstructive sleep apnea -Monitor -CPAP ordered #DVT of leg (deep venous thrombosis): Patient with history of DVTs, is to be on daily Coumadin. He has not been taking this medication due to increased bruising. INR=1 -Resume Coumadin -Daily INR -Lovenox for DVT prophylaxis 40 mg subcu every 24 hours until INR is therapeutic #CKD (chronic kidney disease) stage 2, GFR 60-89 ml/min: Near baseline -Continue to monitor renal function -Avoid nephrotoxic agents #Hx of brain cancer: History of glioblastoma s/p resection. Seizures as above. Patient requiring assistance with ambulation and transfers at this time #Ambulatory dysfunction Patient having increasing difficulties with ambulation. -PT OT consulted recommending rehab -Case management consulted for placement FENa: Regular diet Code Status: DNR/DNI DVT PPX: Lovenox until INR is therapeutic PT/OT: Consulted recommending rehab Dispo: [facility] with telemetry Sb Russ MD PGY 2, FCM This chart was completed utilizing [employer] voice recognition software. Grammatical errors, random word insertions, pronoun errors, and in complete sentences are an occasional consequence of the system. Any questions or concerns about the content, text, or information contained within the body of this dictation should be addressed directly to the physician for clarification. Admission and Anticipated Discharge Date Admission Date: February 20, 2021 Physical Exam Physical Exam: General: Sitting up in his chair in no acute distress looking at the window HEENT: Normocephalic atraumatic, right eye palsy Neck: Normal to visual inspection Cardiac:Regular rate and rhythm I did not appreciate significant murmurs rubs or gallops normal S1, normal S2 Respiratory: Clear to auscultation bilaterally with symmetrical chest expansion, I did not appreciate significant wheezes, rales, rhonchi GI: Soft, nontender, nondistended, bowel sounds present Neuro: EOMI with the exception of known right exotropia, CN II through XII are otherwise normal. Left-sided upper and lower extremity weakness. Psych: Calm and cooperative with the interview Results & Data Results & Data ([facility]) Vital Signs (Past 12 Hours) Vital Signs Temp Pulse Resp BP Pulse Ox 02/21/21 23:00 37 C 81 20 135/85 93 02/21/21 20:00 36.8 C 81 20 132/86 96 Laboratory Results 02/22/21 02/22/21 02/22/21 Range/Units 06:27 06:27 06:27 WBC 5.70 (4.8-10.8) K/uL RBC 4.44 L (4.7-6.1) M/uL Hgb 15.0 (14.0-18.0) g/dL Hct 43.6 (42-52) % MCV 98.2 (80-100) fL MCH 33.8 (25-34) pg MCHC 34.4 (32-36) g/dL RDW Std Deviation 50.2 H (36.4-46.3) fL RDW Coeff of Paul 14.1 (11.5-14.5) % Plt Count 207 (130-400) K/uL MPV 8.9 (7.4-10.4) fL Immature Gran % (Auto) 0.2 % Neut % (Auto) 69.9 % Lymph % (Auto) 19.1 % [place] % (Auto) 7.4 % Eos % (Auto) 3.2 % Baso % (Auto) 0.2 % Neut # (Auto) 3.99 (1.4-6.5) K/uL Lymph # (Auto) 1.09 L (1.2-3.4) K/uL [place] # (Auto) 0.42 (0.11-0.59) K/uL Eos # (Auto) 0.18 (0-0.5) K/uL Baso # (Auto) 0.01 (0-0.2) K/uL Immature Gran # (Auto) 0.01 (0.00-0.02) K/uL PT 10.2 (9.0-12.0) Seconds INR 1.0 (0.9-1.1) Sodium Pending Potassium Pending Chloride Pending Carbon Dioxide Pending Anion Gap Pending BUN Pending Creatinine Pending Est Cr Clr Drug Dosing Pending Est GFR ( Amer) Pending Est GFR (Non-Af Amer) Pending BUN/Creatinine Ratio Pending Glucose Pending Calcium Pending Medications Administered Current Inpatient Medications Acetaminophen (Acetaminophen 500 Mg Tab) 500 mg PO Q6H PRN PRN Reason: Pain Stop: 03/23/21 03:08 Last Admin: 02/21/21 21:14 Dose: 500 mg Documented by: Amoxicillin (Amoxicillin 500 Mg Cap) 500 mg PO DAILY@1600 [facility] Stop: 03/23/21 15:59 Last Admin: 02/21/21 16:11 Dose: Not Given Documented by: Docusate Sodium (Docusate Sodium 100 Mg Cap) 100 mg PO BID PRN PRN Reason: Constipation Stop: 03/23/21 02:38 Enoxaparin Sodium (Enoxaparin Inj 40 Mg/0.4 Ml Syr) 40 mg SQ Q24H [facility] Stop: 03/23/21 16:59 Last Admin: 02/21/21 16:12 Dose: Not Given Documented by: Lorazepam (Ativan) 1 mg in 2 mls @ 0.5 mls/min IV UD PRN PRN Reason: seizure Stop: 03/23/21 02:38 Lorazepam (Ativan) 1 mg in 2 mls @ 2 mls/min IV ONE PRN PRN Reason: For MRI Stop: 03/23/21 11:23 Lamotrigine (Lamotrigine 100 Mg Tab) 200 mg PO BID [facility] Stop: 03/23/21 08:59 Last Admin: 02/21/21 21:07 Dose: 200 mg Documented by: Lamotrigine (Lamotrigine 25 Mg Tab) 50 mg PO BID [facility] Stop: 03/23/21 08:59 Last Admin: 02/21/21 21:05 Dose: 50 mg Documented by: Miscellaneous (Lotrimin Ultra~Order Awaiting Action) 1 ea N/A QS [facility] Stop: 03/23/21 07:59 Last Admin: 02/21/21 22:05 Dose: Not Given Documented by: Ondansetron HCl (Ondansetron Inj 2 Mg/Ml 2 Ml Vial) 4 mg IV Q6H PRN PRN Reason: Nausea Stop: 03/23/21 02:38 Phenytoin Sodium (Phenytoin Sodium Er 100 Mg Cap) 200 mg PO BID [facility] Stop: 03/23/21 08:59 Last Admin: 02/21/21 21:06 Dose: 200 mg Documented by: Warfarin Sodium (Warfarin Sod 2.5 Mg Tab) 2.5 mg PO MoFr@1600 [facility] Stop: 03/24/21 15:59 Warfarin Sodium (Warfarin Sod 5 Mg Tab) 5 mg PO SuTuWeThSa@1600 [facility] Stop: 03/23/21 15:59 Last Admin: 02/21/21 16:09 Dose: Not Given Documented by:
[2021-02-22 07:35] LABS: BUN Creatinine Ratio 15.3 (10-20); Calcium 8.8 mg/dl (8.5-10.1); Creatinine Clr Calc Pharmacy 110.9 ml/min; Est GFR (African American) 106.7 ml/min; Est GFR (Non-African American) 92.1 ml/min; Potassium 4.4 mmol/L (3.5-5.1)
--- NOTE | 2021-02-22 08:11 | Neurology Progress Note ---
Date of Service February 22, 2021 Assessment & Plan (1) Complex partial seizure: (2) Hemiparesis of left nondominant side: (3) Memory impairment: (4) Hx of brain cancer: This patient has a history of glioblastoma surgery in 2003 with detailed history noted in the HPI section of my consultation dated 02-21-2021. He has had longstanding left hemiparesis and complex partial seizures emanating from the right hemisphere ever since this surgery. He had a seizure yesterday ( the 1st seizure in over 14 months ) and has been with some additional postictal left-sided weakness, arm greater than leg, since. This is improving. He does not have any headache or meningeal signs. He does not have any signs of infection. I believe he is getting close to his baseline physically (But this can be "double checked" with his ). His Dilantin level is low at 5.2. This is uncharacteristic of him as he typically has a quite normal level. He probably missed doses (Of this and of warfarin). A Lamictal level was not obtained In addition, this patient has some cognitive impairment, which has been slowly progressive over the last few years. His cerebral atrophy is more prominent than I would expect for age, and this is likely a combination of degenerative changes, from postsurgical and post whole brain radiation effects. Recommendations: 1. Increase activity as able 2. Continue lamotrigine 250 milligrams twice daily, and phenytoin 200 milligrams twice daily (his usual doses). 3. Encourage compliance ( and speak to his regarding this). 4. Check trough lamotrigine and phenytoin levels in 7-10 days. 5. I have no further neurologic testing or treatment recommendations to make at this time and I can follow-up as an outpatient in 3-4 weeks. 6. Consider home PT and home health. Overall, I spent a total of 35 minutes with this case including review of records, review of MRI films, direct evaluation the patient at bedside, and discussion of the case with the patient at bedside, RN at bedside, and Dr. Russ including differential diagnosis and treatment options. Admission and Anticipated Discharge Date Admission Date: February 20, 2021 Subjective Patient feels somewhat improved this morning and feels more confident in his walking although he still has trouble ambulating. He denies pain or headache. He does feel a little anxious and is requesting some Ativan. In discussion with the patient he feels that he might very well have missed medications including Dilantin prior to his admission. He is dependent on his to lay the pills out and make sure that he takes them. Nursing reports no further seizures or abnormalities. He has not had any Ativan yesterday or today, up on the floor. Blood pressure 150/14 is pulse of 80 he is afebrile. CBC is unremarkable. Chem profile was unremarkable as well. MRI of the brain revealed no new stroke, with stable encephalomalacia And postoperative changes in the right temporal and parietal head regions. he has somewhat more generalized cerebral atrophy and white matter changes than would expect for his age. Results & Data ([facility]) Vital Signs (Past 12 Hours) Vital Signs Temp Pulse Resp BP BP Pulse Ox 02/22/21 07:38 36.9 C 85 20 155/114 H 94 02/21/21 23:00 37 C 81 20 135/85 93 02/21/21 20:00 36.8 C 81 20 132/86 96 Exam (Neuro) Physical Exam: He is awake and alert. Stance sitting is normal. Mood is reasonable and affect is appropriate. He has cognitive issues and some long and short-term memory problems but is pleasant and cooperative. There are no abnormal involuntary movements noted. Left upper extremity strength is 4/5 diffusely. This is improved compared to yesterday. He is moving his left lower extremity well. He has no left facial droop. PG Care Time/CCT Total # of Minutes Spent Total Time Spent with Patient: Total time spent is greater than 50% in coordination of care (as documented) at patient's floor/unit and/or counseling patient: Coding Level of Care Code 75091 Subseq Hosp Care Lvl 3 Diagnoses Complex partial seizure G40.209 Hemiparesis of left nondominant side G81.94 Hemiparesis etiology: unspecified Memory impairment R41.3 Hx of brain cancer Z85.841 Time Spent (min) 35 (1) Hemiparesis of left nondominant side Hemiparesis etiology: unspecified Qualified Code(s): G81.94 - Hemiplegia, unspecified affecting left nondominant side
[2021-02-22] MEDS: lamoTRIgine 25 MG TAB PO SCH (08:28)
[2021-02-22] MEDS: lamoTRIgine 100 MG TAB PO SCH (08:28)
[2021-02-22] MEDS: PHENYTOIN SODIUM ER 100 MG CAP PO SCH (08:28)
--- NOTE | 2021-02-22 16:13 | Discharge Summary ---
Date of Service February 22, 2021 Admission HPI Per Admitting Provider Balbir Jensen is a pleasant 65yo male with history of Glioblastoma s/p resection in 2003 and 2006 with baseline left-sided weakness. He has had meningitis in the past - viral x 2, haemophilus influenza x 1. He was most recently admitted to [facility] from 01/30 - 02/04 with concern for meningitis. Patient was treated with Dexamethasone, Vancomycin, Cefepime and Ampicillin as well as Acyclovir during that hospital stay. Bacterial meningitis thought to be unlikely so patient was discharged home with instruction to continue his daily Amoxicillin treatment for chronic suppression. Of note, patient has not been taking this as it worsens tinea cruris infection. This AM at appx 10:00 patient had a tonic clonic seizure. Episode was witnessed by patient's - lasted approximately 4-5 minutes followed by a post-ictal phase. Episode was quite typical for patient's seizures. thinks that the patient may have had a seizure before the witnessed episode at 10:00 as well. Patient with baseline left sided weakness which tends to acutely worsen following seizure. The increased weakness typically resolves within an hour. They present today with concern for ongoing left sided weakness greater than baseline. Patient is unable to ambulate in his current state. Patient recalls the seizure - prodrome of right little finger twitching followed by tonic-clonic seizure. He tried to take Ativan but was unable to get to his medications in time. No additional complaints at this time. Specifically patient denies fever/chills/rigors/neck pain or stiffness/worsening headache. He denies chest pain/palpitations/cough/shortness of breath/abdominal pain/nausea/vomiting/diarrhea His states that he has poor appetite at baseline as well as poor sleep and occasional headache. These have not worsened of late. ER Course: Lamictal 250mg PO, Dilantin 200mg PO, NSS x 500mL Admission Exam Per Admitting Provider General: patient resting comfortably, NAD, non-toxic in appearance, AA&O x 3, hard of hearing bilaterally Skin: warm, dry, intact, +tinea present in groin HEENT: NC/AT, strabismus of right eye, PERRL, EOMI, anicteric sclera, conjunctiva without injection, external ear normal to inspection and nontender, nares patent, moist mucus membranes, dentition intact, no oropharyngeal lesions, neck supple, trachea midline, no LAD, no thyromegaly, no JVD Heart: +S1/S2, regular, no m/r/g Lungs: equal air entry bilaterally, no rales/rhonchi/wheezes Abd: +BS, soft, NT/ND, no masses/organomegaly/ascites Ext: warm, 2+ pulses in UE/LE bilaterally, no clubbing/cyanosis or edema Neuro: AA&O x 3, speech intact, no facial droop, diminished sensation of LUE/LLE, diminished strength of RUE 4/5, RLE 4/5 - states that strength seems to be improving Principal Diagnosis Weakness secondary to seizure Discharge Exam General: Sitting up in his chair in no acute distress looking at the window HEENT: Normocephalic atraumatic, right eye palsy Neck: Normal to visual inspection Cardiac:Regular rate and rhythm I did not appreciate significant murmurs rubs or gallops normal S1, normal S2 Respiratory: Clear to auscultation bilaterally with symmetrical chest expansion, I did not appreciate significant wheezes, rales, rhonchi GI: Soft, nontender, nondistended, bowel sounds present Neuro: EOMI with the exception of known right exotropia, CN II through XII are otherwise normal. Left-sided upper and lower extremity weakness. Psych: Calm and cooperative with the interview Discharge Data Allergies Allergy/AdvReac Type Severity Reaction Status Date / Time No Known Allergies Allergy ` Verified 02/20/21 21:20 Consultations 02/20/21 22:02 ED Decision to Admit Stat 02/21/21 02:39 Consult Neurology Routine Ordered Studies 02/20/21 20:12 CT head/brain wo con Stat 02/21/21 02:39 MR brain wo/w con Routine Hospital Course (1) Seizure: 65yo male with history of GBM s/p resection, baseline left sided weakness, seizure disorder presenting after tonic-clonic seizure at home with prolonged worsening of left sided weakness. #Seizure: Patient with baseline weakness of left side secondary to his GBM resection. Left sided weakness frequently worsens following seizure then returns to baseline. However, weakness has persisted throughout the day. Do not strongly suspect acute event such as CVA. Neurology was consulted, brain MRI was obtained demonstrating no acute intracranial findings, stable postoperative findings within the right temporal parietal occipital lobes. On admission he had low Dilantin levels. Per interview with the patient throughout his hospitalization it is apparent that he may have the beginnings of dementia and this may be related to his medication noncompliance. That effect I contacted his this afternoon and explained to her the importance of compliance with his medications. Discharge the patient was at his baseline function neurology will follow up with the patient as an outpatient. #Left-sided weakness: As above #Meningitis: Patient with history of recurrent meningitis, most recently last month for which he was hospitalized. He is to be taking Amoxicillin for chronic suppressive therapy. However, he has not been taking this medication due to the fact that it worsens his tinea cruris infection. Do not suspect acute meningitis at this time. Continue amoxicillin and topical antifungal Lotrimin twice daily. -Will resume Amoxicillin. He is to continue this indefinitely -Continue topical antifungal - Lotrimin BID #AVANI (obstructive sleep apnea): Patient does not use CPAP, discussed the importance of compliance with CPAP to prevent the consequences of chronic obstructive sleep apnea -Continue CPAP use as an outpatient #DVT of leg (deep venous thrombosis): Patient with history of DVTs, is to be on daily Coumadin. He has not been taking this medication due to increased bruising. INR=1 -Resume Coumadin -INR as an outpatient. May need titration. #CKD (chronic kidney disease) stage 2, GFR 60-89 ml/min: Near baseline -Continue to monitor renal function -Avoid nephrotoxic agents #Hx of brain cancer: History of glioblastoma s/p resection. Seizures as above. Patient requiring assistance with ambulation and transfers at this time #Ambulatory dysfunction Patient having increasing difficulties with ambulation. -PT OT consulted recommending rehab -Case management consulted for placement Sb Russ MD PGY 2, FCM This chart was completed utilizing [employer] voice recognition software. Grammatical errors, random word insertions, pronoun errors, and in complete sentences are an occasional consequence of the system. Any questions or concerns about the content, text, or information contained within the body of this dictation should be addressed directly to the physician for clarification. Total Time Total Time Spent Total Time Spent (In Minutes): <30 Discharge Plan Discharge Items Patient Disposition: Home - Self-Care Reason For Visit: SEIZURE Discharge Diagnosis: Acute weakness secondary to seizure Activity: Resume your previous activity Non-emergency contact: Primary Care Provider Call non-emergency contact if: you have any medication questions, your pain is not controlled and your temperature is above 101.5 Follow-up/Referrals: Anjana Villar CRNP [Primary Care Provider] - Diet: Regular Addtl Attending Provider Instructions: Care instructions: You were admitted to [facility] for treatment of acute weakness secondary to a seizure. While admitted you had a brain MRI demonstrating no acute intracranial findings, normal postoperative changes. It was noted that your Dilantin levels as well as your Coumadin levels were low indicating you are not taking your medication as prescribed. We reviewed your medications while hospitalized and have made changes as described below. Please continue to take all medications as directed below. Neurology will follow up with you as an outpatient. A discharge summary will be sent to your primary care physician to ensure continuity of care. Please bring this discharge summary with you to your next office appointment so that your provider can review it at that time. Follow-up appointments: - Keep all your follow-up appointments as already scheduled. If you cannot make an appointment, notify your provider. - Please call to request a follow-up appointment with your primary care physician within one week of discharge. Please let us know if you are unable to obtain an appointment Follow-up labs: - Please go to a lab nearest you and obtain the requested lab work. Please have this completed at least 3 hours before your doctor's appointment (or the day before your appointment if possible). Medications: - Your medication list has been reviewed and reconciled upon discharge to ensure accuracy and continuity of care. - You are provided with a list of all your current medications at this time. Please review this list closely and make note of any changes. - Please take all of your medications exactly as prescribed. - Tell your primary care provider if you cannot afford your medications. - Call your primary care provider if you are having any side effects or any other problems. - Call your primary care provider before taking any over the counter medications or supplements, including herbals and vitamins, because some of these may interact with your current medications and/or make your symptoms worse. Symptoms: Please call your primary care provider for symptoms including, but not limited to: fevers (temperatures greater than 100.4), chills, intractable nausea or vomiting, diarrhea, rash, shortness of breath, bleeding, pain, or if you experience any worsening of the symptoms that brought you to the hospital. For EMERGENCY and VERY SERIOUS health-related issues, such as chest pain, shortness of breath, or sudden onset of the symptoms that brought you to the hospital, you may need to call 911 or go directly to the Emergency Room It has been our privilege to take care of you during your hospital stay. And Above All Else Feel Better! Best Wishes, Sb Russ MD PGY2 Resident, Family & Community Medicine [facility] Residency at [facility] - [address], [address] MC: [place] [address] Pending Studies at Discharge: No Stand-Alone Forms: My [facility], Smoking Cessation Medications and DC Order Prescriptions: Continued warfarin 5 mg tablet 5 mg PO .COMPLEX Qty: 30 RF: 0 warfarin [Jantoven] 2.5 mg tablet 2.5 mg PO .COMPLEX Qty: 30 RF: 0 lorazepam 1 mg tablet 1 mg PO DAILY PRN (Reason: Seizures) 30 Days Qty: 30 RF: 3 phenytoin sodium extended [Dilantin Extended] 100 mg capsule 200 mg PO BID 30 Days Qty: 120 RF: 5 lamotrigine 200 mg tablet 200 mg PO BID Qty: 60 RF: 5 lamotrigine 25 mg tablet 50 mg PO BID Qty: 120 RF: 5 acetaminophen [Tylenol Extra Strength] 500 mg Tablet 500 mg PO Q6H PRN (Reason: Pain) RF: 0 amoxicillin 500 mg capsule 500 mg PO DAILY@1600 Qty: 30 RF: 11 butenafine [Lotrimin Ultra] 1 % Cream 1 applic TOPICAL BID RF: 0 Discharge Orders: Discharge Order (Routine); Ordered 02/22/21 Ordered By: bS Russ Admission Data Admit Date/Time: 02/20/21 23:04 Attending Provider: Geo Brown Admit Provider: Anastasia Russ Primary Care Provider: Anjana Villar. Other Providers: Anastasia Russ ; Bentley Irizarry ; Kiana Baird ; [facility] Supervising Physician Co-Signing Physician Notes I personally examined the patient and verified all gibbs points of history and exam, discussed case, and agree with decision making with Dr Russ. Feeling okay. Feeling up to going home. Neurology input appreciated. Patient himself notes it would be highly plausible he was accidentally forgetting medications, and is asking his to help ensure that he does not forget doses. Vitals noted, in general he is awake and alert pleasant no distress. HEENT normocephalic atraumatic mucous membranes are moist. Breathing unlabored no accessory muscle use good effort. Skin shows no rashes no pallor or icterus. Seizurelikely from forgetting medications. Stable for home. Discussed ways to help improve adherence. Otherwise as above. Resident Activity Tracking Resident Involvement: Resident Care Provided Care Provided: Adult Hospital Medicine
--- NOTE | 2021-02-22 16:19 | Billing Data ---
Date of Service February 22, 2021 Coding Level of Care Code 24382 OBS Care - Discharge
[2021-02-22] MEDS: WARFARIN SOD 2.5 MG TAB PO SCH ×2 (16:45→17:00)
[2021-02-22] MEDS: ENOXAPARIN INJ 40 MG/0.4 ML SYR SQ SCH (17:00)
[2021-02-22] MEDS: AMOXICILLIN 500 MG CAP PO SCH (17:00)
== END 2021-02-22 18:30 | disposition home or self-care (01) ==
LOC: ED 19:35 → 2N 19:35 → SUATTDRO 23:04 → 2N 02-21 02:24

== ENCOUNTER 2021-09-02 12:38 | Inpatient (IN) ==
[2021-09-02] MEDS ORDERED: PIPERACILL/TAZOBAC CONSULT ACTIVE PRN ×2 (13:34→22:08)
[2021-09-02] MEDS ORDERED: DAPTOmycin 575 MG in SYRINGE 0 ML IV ONE (13:34)
[2021-09-02] MEDS ORDERED: PIPERACILLIN/TAZOBACTAM 4.5 GM/120 ML BAG IV ONE (13:34)
[2021-09-02] MEDS ORDERED: ACETAMINOPHEN 1,000 MG/100 ML VIAL IV STA (13:40)
[2021-09-02 14:10] LABS: Basophils # (auto) 0.02 K/uL (0-0.2); Basophils % (auto) 0.3 %; Eosinophils # (auto) 0.16 K/uL (0-0.5); Eosinophils % (auto) 2.3 %; Hematocrit (blood only) 41.8 % (42-52); Hemoglobin 13.9 g/dL (14.0-18.0); Immature Granulocytes # (auto) 0.02 K/uL (0.00-0.02); Immature Granulocytes % (auto) 0.3 %; Lymphocytes # (auto) 0.78 K/uL (1.2-3.4); Lymphocytes % (auto) 11.5 %; Mean Corpuscular Hemoglobin 32.8 pg (25-34); Mean Corpuscular Hgb Conc 33.3 g/dL (32-36); Mean Corpuscular Volume 98.6 fL (80-100); Mean Platelet Volume 9.6 fL (7.4-10.4); Monocytes # (auto) 0.81 K/uL (0.11-0.59); Monocytes % (auto) 11.9 %; Neutrophils # (auto) 5.02 K/uL (1.4-6.5); Neutrophils % (auto) 73.7 %; Platelet Count 214 K/uL (130-400); RDW Standard Deviation 49.9 fL (36.4-46.3); Red Blood Count 4.24 M/uL (4.7-6.1); White Blood Count 6.81 K/uL (4.8-10.8)
--- NOTE | 2021-09-02 14:20 | XRay Report ---
XR chest 1V portable CLINICAL HISTORY: SEPSIS TECHNIQUE: Single frontal radiograph of the chest was obtained. Comparison: Comparison is made to chest 2 views 08/31/2021 FINDINGS: No lines and tubes are seen. Cardiomegaly is noted. Lungs are underinflated but clear. No evidence of pleural effusion or pneumothorax. IMPRESSION: No acute chest disease. ACT 112: Negative or not required by law. Electronically signed by: Adrian Castellanos M.D. 09/02/2021 2:19 PM
[2021-09-02 14:38] LABS: Base Excess VBG 3.1 mEq/L; HCO3 VBG 29 mmol/L; PCO2 VBG 51 mmHg (38-50); PO2 VBG 30 mmHg; pH VBG 7.38 (7.36-7.41)
[2021-09-02 14:39] LABS: Oxygen Saturation VBG < 60.0 %
[2021-09-02 14:52] LABS: INR 2.5 (0.9-1.1)
[2021-09-02 14:57] LABS: Appearance Urine Clear (Clear); Bilirubin Urine Negative (Negative); Blood Urine Negative (Negative); Color Urine Yellow; Glucose Urine UA Negative (Negative); Ketones Urine Negative (Negative); Leukocyte Esterase Urine Negative (Negative); Nitrite Urine Negative (Negative); Protein Urine Negative (Negative); Specific Gravity Urine 1.018 (1.000-1.030); Urobilinogen Urine Negative (Negative); pH Urine 7.5 (4.5-7.5)
[2021-09-02 15:01] LABS: Partial Thromboplastin Time 53.1 Seconds (21.0-31.0)
--- NOTE | 2021-09-02 15:01 | CT Scan Report ---
CT head/brain wo con CLINICAL HISTORY: ams Technique: Contiguous axial CT images of the head were acquired from the base of the skull to the jeferson [place] without intravenous contrast administration. Images were viewed in brain, [facility] and [facility] . Automated dose lowering techniques and/or adjustment according to patient size were utilized for this exam. Comparison: Comparison is made to CT head 07/07/2021 Findings: Areas of decreased attenuation are present in the periventricular and subcortical white matter bilate rally consistent with small vessel ischemic disease. Generalized cerebral atrophy with commensurate e nlargement of the ventricles, sulci, and cisterns is also present. There is no acute intracranial hem orrhage or evidence of acute territorial infarction. No shift of the midline structures, mass effect, or extra-axial abnormalities are shown. Atherosclerotic calcifications are present in the intracran ial segments of the internal carotid arteries. Encephalomalacia is again seen in the right parieto-oc cipital region. Right craniectomy is seen with soft tissue thickening adjacent to it, similar in appe arance to prior exam. Imaged portions of the paranasal sinuses and mastoid air cells are clear. The orbits appear normal. There are no acute fractures of the calvaria or scalp swelling. Impression: Postcraniotomy changes without evidence of acute abnormality. ACT 112: Negative or not required by law. Electronically signed by: Adrian Castellanos M.D. 09/02/2021 3:00 PM
[2021-09-02 15:15] LABS: Alanine Aminotransferase 33 (12-78); Albumin Globulin Ratio 0.9 (0.9-2); Albumin Level 3.5 gm/dl (3.4-5.0); Alkaline Phosphatase 179 U/L (45-117); Aspartate Aminotransferase 26 U/L (15-37); BUN Creatinine Ratio 12.5 (10-20); Bilirubin,Total 0.4 mg/dl (0.2-1); Blood Urea Nitrogen 12 mg/dl (7-18); Calcium 9.3 mg/dl (8.5-10.1); Carbon Dioxide 29 mmol/L (21-32); Chloride 103 mmol/L (98-107); Creatinine Clr Calc Pharmacy 108.2 ml/min; Est GFR (African American) 100.2 ml/min; Est GFR (Non-African American) 86.5 ml/min; Glucose 98 mg/dl (70-99); Magnesium 2.2 mg/dl (1.8-2.4); NT Pro B Type Natriuretic Pept 225 pg/ml (0-900); Sodium 138 mmol/L (136-145); Total Protein 7.5 gm/dl (6.4-8.2); Troponin I < 0.015 ng/ml (0-0.045)
--- NOTE | 2021-09-02 17:23 | Emergency Department Note ---
Impression & Plan Cellulitis, Bilateral lower extremity edema, Confusion ED Provider Note NAME: MICHELLE BHAKTA AGE: 65 SEX: M ARRIVES VIA: Ambulance INFORMANT: Patient ED PROVIDER(S): Severiano Dunn MD CHIEF COMPLAINT: Cellulitis, confusion. PLAN: Disposition: Admit MEDICAL DECISION MAKING: The patient is a pleasant 65-year-old gentleman with a past medical history of remote GBS resection with chronic left-sided hemiparesis, generalized epilepsy on Dilantin and lamotrigine, history of DVT on warfarin who presents to emergency department accompanied by his for evaluation and admission after being seen by their primary care doctor today in follow-up for management of cellulitis where the patient was seen 2 days ago and started on Augmentin but now with interval worsening and now the development of confusion per the patient's . The patient's reports that he had a history of chronic swelling in his left leg in the setting of his prior DVT but now this is gotten worse and now he also has swelling in his right leg. They deny fevers, chills, cough, congestion, nausea, vomiting, diarrhea or urinary symptoms. On arrival the patient is chronically ill-appearing but no acute distress, afebrile stable vital signs. He has 2+ bilateral lower extremity pitting edema left greater than right with the left lower leg with erythema, warmth and foul smelling serous weeping without overt areas of fluctuance. There is no crepitus. Chest x-ray negative for acute cardiopulmonary process. WBC within normal limits. H/H similar to prior values. Platelets within normal limits. INR is therapeutic at 2.5. VBG without significant abnormality. Chemistry without metabolic acidosis. Kidney function is normal. Lactic acid 1.3, within normal limits. Electrolytes and LFTs without significant abnormality. Troponin negative/undetectable. BNP within normal limits. Procalcitonin is undetectable. UA without evidence of infection. The patient's Dilantin level was 9.3 marginally low to normal range. CT of the head negative for acute process. Patient treated empirically with Zosyn and Daptomycin. Lasix ordered. Morphine 1mg ordered for patient's complaint of chronic back pain despite IV apap. Case d/w Dr. Gomez, [facility] hospitalist, who will evaluate the patient for admission. Triage Nursing notes reviewed and agree them. Prior medical records reviewed Vital Signs: reviewed and remarkable for no significant abnormalities Differential diagnosis: Cellulitis, abscess, MRSA infection, DVT, necrotizing fasciitis, dermatitis, drug eruption, allergic reaction, as well as other pathologies. ER treatment provided: See below. Diagnostics interpreted by me: ECG: Normal sinus rhythm, 92 bpm, no ectopy, no overt ST elevation or depression, QTC 460, QRS 88. Cardiac Monitoring: An order for continuous cardiac monitoring was placed and demonstrated normal sinus rhythm, 92 bpm, no ectopy. Laboratory studies: See below Imaging studies: See below Consultation(s): Dr. Gomez, [facility] hospitalist, to evaluate the patient for admission. HPI: The patient is a pleasant 65-year-old gentleman with a past medical history of remote GBS resection with chronic left-sided hemiparesis, generalized epilepsy on Dilantin and lamotrigine, history of DVT on warfarin who presents to emergency department accompanied by his for evaluation and admission after being seen by their primary care doctor today in follow-up for management of cellulitis where the patient was seen 2 days ago and started on Augmentin but now with interval worsening and now the development of confusion per the patient's . The patient's reports that he had a history of chronic swelling in his left leg in the setting of his prior DVT but now this is gotten worse and now he also has swelling in his right leg. They deny fevers, chills, cough, congestion, nausea, vomiting, diarrhea or urinary symptoms. ROS: See above HPI for pertinent positives & negatives. A total of 10 systems reviewed and were otherwise negative. PAST MEDICAL HISTORY:See Below PAST SURGICAL HISTORY:See Below FAMILY HISTORY:See Below SOCIAL HISTORY:See Below HOME MEDICATIONS:See Below ALLERGIES:See Below VITALS:See Below PHYSICAL EXAMINATION: GENERAL: Awake, alert, chronically ill-appearing, in no distress HENT: Normocephalic, atraumatic. Oropharynx unremarkable. EYES: Normal conjunctiva. Sclera non-icteric. NECK: Supple. No nuchal rigidity. FROM. No JVD. RESPIRATORY: Clear to auscultation. CARDIAC: Regular rate, normal rhythm. Extremities warm and well perfused. Pulses equal. ABDOMEN: Soft, non-distended. No tenderness to palpation. No rebound or guarding. No masses. RECTAL: Deferred. MUSCULOSKELETAL: Chest examination reveals no tenderness. The back is s ymmetrical on inspection without obvious abnormality. There is no CVA tenderness to palpation. No joint edema. LOWER EXTREMITIES: 2+ bilateral lower extremity pitting edema left greater than right with the left lower leg with erythema, warmth and foul smelling serous weeping without overt areas of fluctuance. There is no crepitus. NEURO: Baseline left sided hemiparesis. SKIN: No rash or jaundice noted. Severiano Dunn MD Past Med/Surg History Medical History Benign hypertension Chronic anticoagulation CKD (chronic kidney disease) stage 2, GFR 60-89 ml/min Closed left clavicular fracture Complex partial seizure DVT of leg (deep venous thrombosis) Fall Hx of brain cancer Glioblastoma Multiforme - 2004 - s/p resection [facility] Memory impairment Meningitis multiple episodes AVANI (obstructive sleep apnea) Small bowel obstruction Surgical History H/O cataract removal with insertion of prosthetic lens H/O shoulder surgery Hx of brain surgery 2004 initial resection for GBM at [facility]; 2007 - 2nd surgery, this time at [facility], ultimately was discovered to have blood clot & scar tissue rather than recurrent cancer Family History Father , in his mid 60s of cardiac issues. 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 Beliefs That Will Affect Care: None marital status: Current Living Situation: Spouse Current Living Situation Comment: lives in [facility]; 2 children 1st marriage; 2 children 2nd marriage current occupational status: retired 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, 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 How many Children do You have: 4 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 Feels Safe at Home: Yes Childhood Exposure to Second-Hand Smoke: No caffeine: No Dental Care, Regularly: Yes Physical Activity Frequency: Does not Exercise Seatbelt Use: never Sunscreen Use: No Assistive Devices: Glasses Allergies Allergies Allergy/AdvReac Type Severity Reaction Status Date / Time No Known Allergies Allergy ` Verified 09/02/21 14:28 Home Meds Home Medications Medication Instructions Recorded Confirmed acetaminophen 500 mg tablet 1,000 mg PO Q6H PRN 01/30/21 09/02/21 (Tylenol Extra Strength) lamotrigine 25 mg tablet 50 mg PO BID 08/12/21 09/02/21 Previous Rx's Medication Instructions Recorded lorazepam 1 mg tablet 1 mg PO DAILY PRN 30 Days #30 tab 09/29/20 phenytoin sodium extended 100 mg 200 mg PO BID 30 Days #120 cap 12/14/20 capsule (Dilantin Extended) lamotrigine 200 mg tablet 200 mg PO BID #60 tab 07/09/21 oxycodone 5 mg tablet 5 mg PO Q8H PRN #31 tab 07/14/21 warfarin 5 mg tablet 5 mg PO .COMPLEX #100 tab 08/09/21 amoxicillin 875 mg-potassium 1 tab PO BID #20 tab 08/31/21 clavulanate 125 mg tablet (Augmentin) furosemide 20 mg tablet 40 mg PO DAILY #60 tab 08/31/21 atorvastatin 40 mg tablet 40 mg PO DAILY #30 tab 09/02/21 Results & Data (ED) Vital Signs Vital Signs - 24 hr 09/02/21 12:53 09/02/21 12:58 09/02/21 13:00 Temperature 37 C Temperature Source Oral Pulse Rate 90 91 H 91 H Pulse Rate [Apical] Pulse Rate from SpO2 Sensor 91 H 91 H Respiratory Rate 20 18 16 Blood Pressure 150/105 H 145/98 H Blood Pressure [Right Arm] Blood Pressure Mean 120 113 Blood Pressure Mean [Right Arm] Pulse Oximetry 98 95 95 Oxygen Delivery Method Room Air Sepsis Recent Fever Within 48 Hours No Sepsis New/Unexplained Change in Mental Status Yes Sepsis Action Taken by Nursing No Action Required 09/02/21 13:15 09/02/21 13:30 09/02/21 13:45 Temperature Temperature Source Pulse Rate 94 H 93 H 93 H Pulse Rate [Apical] Pulse Rate from SpO2 Sensor 88 90 93 H Respiratory Rate 20 25 H 22 Blood Pressure 151/105 H Blood Pressure [Right Arm] Blood Pressure Mean 120 Blood Pressure Mean [Right Arm] Pulse Oximetry 95 97 97 Oxygen Delivery Method Sepsis Recent Fever Within 48 Hours Sepsis New/Unexplained Change in Mental Status Sepsis Action Taken by Nursing 09/02/21 14:00 12/16/21 14:15 09/02/21 14:30 Temperature Temperature Source Pulse Rate 96 H 90 90 Pulse Rate [Apical] Pulse Rate from SpO2 Sensor 90 Respiratory Rate 23 16 22 Blood Pressure Blood Pressure [Right Arm] Blood Pressure Mean Blood Pressure Mean [Right Arm] Pulse Oximetry 95 Oxygen Delivery Method Sepsis Recent Fever Within 48 Hours Sepsis New/Unexplained Change in Mental Status Sepsis Action Taken by Nursing 09/02/21 14:56 09/02/21 15:00 09/02/21 15:15 Temperature Temperature Source Pulse Rate 94 H 93 H Pulse Rate [Apical] Pulse Rate from SpO2 Sensor 92 H 94 H 93 H Respiratory Rate 27 H 21 Blood Pressure 159/103 H 144/86 H Blood Pressure [Right Arm] Blood Pressure Mean 121 105 Blood Pressure Mean [Right Arm] Pulse Oximetry 95 95 95 Oxygen Delivery Method Sepsis Recent Fever Within 48 Hours Sepsis New/Unexplained Change in Mental Status Sepsis Action Taken by Nursing 09/02/21 15:28 09/02/21 15:30 09/02/21 15:45 Temperature Temperature Source Pulse Rate 92 H Pulse Rate [Apical] Pulse Rate from SpO2 Sensor 89 Respiratory Rate 20 24 Blood Pressure Blood Pressure [Right Arm] Blood Pressure Mean Blood Pressure Mean [Right Arm] Pulse Oximetry 95 Oxygen Delivery Method Room Air Sepsis Recent Fever Within 48 Hours Sepsis New/Unexplained Change in Mental Status Sepsis Action Taken by Nursing 09/02/21 16:00 09/02/21 16:15 09/02/21 16:30 Temperature Temperature Source Pulse Rate 91 H 92 H Pulse Rate [Apical] Pulse Rate from SpO2 Sensor 87 92 H Respiratory Rate 16 15 18 Blood Pressure Blood Pressure [Right Arm] Blood Pressure Mean Blood Pressure Mean [Right Arm] Pulse Oximetry 93 89 L Oxygen Delivery Method Sepsis Recent Fever Within 48 Hours Sepsis New/Unexplained Change in Mental Status Sepsis Action Taken by Nursing 09/02/21 16:45 09/02/21 17:00 09/02/21 17:15 Temperature Temperature Source Pulse Rate 88 Pulse Rate [Apical] Pulse Rate from SpO2 Sensor 98 H 85 95 H Respiratory Rate 17 16 17 Blood Pressure Blood Pressure [Right Arm] Blood Pressure Mean Blood Pressure Mean [Right Arm] Pulse Oximetry 95 95 96 Oxygen Delivery Method Sepsis Recent Fever Within 48 Hours Sepsis New/Unexplained Change in Mental Status Sepsis Action Taken by Nursing 09/02/21 17:45 Temperature Temperature Source Pulse Rate Pulse Rate [Apical] 96 H Pulse Rate from SpO2 Sensor Respiratory Rate 22 Blood Pressure Blood Pressure [Right Arm] 143/90 H Blood Pressure Mean Blood Pressure Mean [Right Arm] 107 Pulse Oximetry 96 Oxygen Delivery Method Room Air Sepsis Recent Fever Within 48 Hours Sepsis New/Unexplained Change in Mental Status Sepsis Action Taken by Nursing Laboratory Data Attestation: I reviewed the patient's lab results. Result diagrams: 09/02/21 13:58 09/02/21 13:58 Lab Results 09/02/21 09/02/21 09/02/21 Range/Units 13:58 13:58 14:20 WBC 6.81 (4.8-10.8) K/uL RBC 4.24 L (4.7-6.1) M/uL Hgb 13.9 L (14.0-18.0) g/dL Hct 41.8 L (42-52) % MCV 98.6 (80-100) fL MCH 32.8 (25-34) pg MCHC 33.3 (32-36) g/dL RDW Std Deviation 49.9 H (36.4-46.3) fL RDW Coeff of Paul 14.0 (11.5-14.5) % Plt Count 214 (130-400) K/uL MPV 9.6 (7.4-10.4) fL Immature Gran % (Auto) 0.3 % Neut % (Auto) 73.7 % Lymph % (Auto) 11.5 % [place] % (Auto) 11.9 % Eos % (Auto) 2.3 % Baso % (Auto) 0.3 % Neut # (Auto) 5.02 (1.4-6.5) K/uL Lymph # (Auto) 0.78 L (1.2-3.4) K/uL [place] # (Auto) 0.81 H (0.11-0.59) K/uL Eos # (Auto) 0.16 (0-0.5) K/uL Baso # (Auto) 0.02 (0-0.2) K/uL Immature Gran # (Auto) 0.02 (0.00-0.02) K/uL PT (9.0-12.0) Seconds INR (0.9-1.1) APTT (21.0-31.0) Seconds PTT Ratio VBG pH (7.36-7.41) VBG pCO2 (38-50) mmHg VBG pO2 mmHg VBG HCO3 mmol/L VBG O2 Saturation % VBG Base Excess mEq/L Barometric Pressure mm/Hg Sodium 138 (136-145) mmol/L Potassium 4.0 (3.5-5.1) mmol/L Chloride 103 (98-107) mmol/L Carbon Dioxide 29 (21-32) mmol/L Anion Gap 6.0 (3-11) BUN 12 (7-18) mg/dl Creatinine 0.93 (0.6-1.4) mg/dl Est Cr Clr Drug Dosing 108.2 ml/min Est GFR ( Amer) 100.2 ml/min Est GFR (Non-Af Amer) 86.5 ml/min BUN/Creatinine Ratio 12.5 (10-20) Glucose 98 (70-99) mg/dl POC Glucose 89 (70-99) mg/dl Lactate (0.4-2.0) mmol/L Calcium 9.3 (8.5-10.1) mg/dl Magnesium 2.2 (1.8-2.4) mg/dl Total Bilirubin 0.4 (0.2-1) mg/dl AST 26 (15-37) U/L ALT 33 (12-78) Alkaline Phosphatase 179 H (45-117) U/L Troponin I < 0.015 (0-0.045) ng/ml NT-Pro-B Natriuret Pep 225 (0-900) pg/ml Total Protein 7.5 (6.4-8.2) gm/dl Albumin 3.5 (3.4-5.0) gm/dl Globulin 4.0 (2.5-4.0) gm/dl Albumin/Globulin Ratio 0.9 (0.9-2) Procalcitonin (0-0.5) ng/ml Urine Color Urine Appearance (Clear) Urine pH (4.5-7.5) Ur Specific [place] (1.000-1.030) Urine Protein (Negative) Urine Glucose (UA) (Negative) Urine Ketones (Negative) Urine Blood (Negative) Urine Nitrite (Negative) Urine Bilirubin (Negative) Urine Urobilinogen (Negative) Ur Leukocyte Esterase (Negative) Phenytoin (10-20) mcg/ml SARS-CoV-2 (PCR) (Negative) Influenza Type A (PCR) (Neg) Influenza Type B (PCR) (Neg) RSV (RT-PCR) (Neg) 09/02/21 09/02/21 09/02/21 Range/Units 14:22 14:22 14:22 WBC (4.8-10.8) K/uL RBC (4.7-6.1) M/uL Hgb (14.0-18.0) g/dL Hct (42-52) % MCV (80-100) fL MCH (25-34) pg MCHC (32-36) g/dL RDW Std Deviation (36.4-46.3) fL RDW Coeff of Paul (11.5-14.5) % Plt Count (130-400) K/uL MPV (7.4-10.4) fL Immature Gran % (Auto) % Neut % (Auto) % Lymph % (Auto) % [place] % (Auto) % Eos % (Auto) % Baso % (Auto) % Neut # (Auto) (1.4-6.5) K/uL Lymph # (Auto) (1.2-3.4) K/uL [place] # (Auto) (0.11-0.59) K/uL Eos # (Auto) (0-0.5) K/uL Baso # (Auto) (0-0.2) K/uL Immature Gran # (Auto) (0.00-0.02) K/uL PT (9.0-12.0) Seconds INR (0.9-1.1) APTT (21.0-31.0) Seconds PTT Ratio VBG pH 7.38 (7.36-7.41) VBG pCO2 51 H (38-50) mmHg VBG pO2 30 mmHg VBG HCO3 29 mmol/L VBG O2 Saturation < 60.0 % VBG Base Excess 3.1 mEq/L Barometric Pressure 729.6 mm/Hg Sodium (136-145) mmol/L Potassium (3.5-5.1) mmol/L Chloride (98-107) mmol/L Carbon Dioxide (21-32) mmol/L Anion Gap (3-11) BUN (7-18) mg/dl Creatinine (0.6-1.4) mg/dl Est Cr Clr Drug Dosing ml/min Est GFR ( Amer) ml/min Est GFR (Non-Af Amer) ml/min BUN/Creatinine Ratio (10-20) Glucose (70-99) mg/dl POC Glucose (70-99) mg/dl Lactate (0.4-2.0) mmol/L Calcium (8.5-10.1) mg/dl Magnesium (1.8-2.4) mg/dl Total Bilirubin (0.2-1) mg/dl AST (15-37) U/L ALT (12-78) Alkaline Phosphatase (45-117) U/L Troponin I (0-0.045) ng/ml NT-Pro-B Natriuret Pep (0-900) pg/ml Total Protein (6.4-8.2) gm/dl Albumin (3.4-5.0) gm/dl Globulin (2.5-4.0) gm/dl Albumin/Globulin Ratio (0.9-2) Procalcitonin < 0.05 (0-0.5) ng/ml Urine Color Urine Appearance (Clear) Urine pH (4.5-7.5) Ur Specific [place] (1.000-1.030) Urine Protein (Negative) Urine Glucose (UA) (Negative) Urine Ketones (Negative) Urine Blood (Negative) Urine Nitrite (Negative) Urine Bilirubin (Negative) Urine Urobilinogen (Negative) Ur Leukocyte Esterase (Negative) Phenytoin 9.3 L (10-20) mcg/ml SARS-CoV-2 (PCR) (Negative) Influenza Type A (PCR) (Neg) Influenza Type B (PCR) (Neg) RSV (RT-PCR) (Neg) 09/02/21 09/02/21 09/02/21 Range/Units 14:22 14:22 14:45 WBC (4.8-10.8) K/uL RBC (4.7-6.1) M/uL Hgb (14.0-18.0) g/dL Hct (42-52) % MCV (80-100) fL MCH (25-34) pg MCHC (32-36) g/dL RDW Std Deviation (36.4-46.3) fL RDW Coeff of Paul (11.5-14.5) % Plt Count (130-400) K/uL MPV (7.4-10.4) fL Immature Gran % (Auto) % Neut % (Auto) % Lymph % (Auto) % [place] % (Auto) % Eos % (Auto) % Baso % (Auto) % Neut # (Auto) (1.4-6.5) K/uL Lymph # (Auto) (1.2-3.4) K/uL [place] # (Auto) (0.11-0.59) K/uL Eos # (Auto) (0-0.5) K/uL Baso # (Auto) (0-0.2) K/uL Immature Gran # (Auto) (0.00-0.02) K/uL PT 24.0 H (9.0-12.0) Seconds INR 2.5 H (0.9-1.1) APTT 53.1 H* (21.0-31.0) Seconds PTT Ratio 2.0 VBG pH (7.36-7.41) VBG pCO2 (38-50) mmHg VBG pO2 mmHg VBG HCO3 mmol/L VBG O2 Saturation % VBG Base Excess mEq/L Barometric Pressure mm/Hg Sodium (136-145) mmol/L Potassium (3.5-5.1) mmol/L Chloride (98-107) mmol/L Carbon Dioxide (21-32) mmol/L Anion Gap (3-11) BUN (7-18) mg/dl Creatinine (0.6-1.4) mg/dl Est Cr Clr Drug Dosing ml/min Est GFR ( Amer) ml/min Est GFR (Non-Af Amer) ml/min BUN/Creatinine Ratio (10-20) Glucose (70-99) mg/dl POC Glucose (70-99) mg/dl Lactate 1.3 (0.4-2.0) mmol/L Calcium (8.5-10.1) mg/dl Magnesium (1.8-2.4) mg/dl Total Bilirubin (0.2-1) mg/dl AST (15-37) U/L ALT (12-78) Alkaline Phosphatase (45-117) U/L Troponin I (0-0.045) ng/ml NT-Pro-B Natriuret Pep (0-900) pg/ml Total Protein (6.4-8.2) gm/dl Albumin (3.4-5.0) gm/dl Globulin (2.5-4.0) gm/dl Albumin/Globulin Ratio (0.9-2) Procalcitonin (0-0.5) ng/ml Urine Color Yellow Urine Appearance Clear (Clear) Urine pH 7.5 (4.5-7.5) Ur Specific [place] 1.018 (1.000-1.030) Urine Protein Negative (Negative) Urine Glucose (UA) Negative (Negative) Urine Ketones Negative (Negative) Urine Blood Negative (Negative) Urine Nitrite Negative (Negative) Urine Bilirubin Negative (Negative) Urine Urobilinogen Negative (Negative) Ur Leukocyte Esterase Negative (Negative) Phenytoin (10-20) mcg/ml SARS-CoV-2 (PCR) (Negative) Influenza Type A (PCR) (Neg) Influenza Type B (PCR) (Neg) RSV (RT-PCR) (Neg) 09/02/21 Range/Units 16:37 WBC (4.8-10.8) K/uL RBC (4.7-6.1) M/uL Hgb (14.0-18.0) g/dL Hct (42-52) % MCV (80-100) fL MCH (25-34) pg MCHC (32-36) g/dL RDW Std Deviation (36.4-46.3) fL RDW Coeff of Paul (11.5-14.5) % Plt Count (130-400) K/uL MPV (7.4-10.4) fL Immature Gran % (Auto) % Neut % (Auto) % Lymph % (Auto) % [place] % (Auto) % Eos % (Auto) % Baso % (Auto) % Neut # (Auto) (1.4-6.5) K/uL Lymph # (Auto) (1.2-3.4) K/uL [place] # (Auto) (0.11-0.59) K/uL Eos # (Auto) (0-0.5) K/uL Baso # (Auto) (0-0.2) K/uL Immature Gran # (Auto) (0.00-0.02) K/uL PT (9.0-12.0) Seconds INR (0.9-1.1) APTT (21.0-31.0) Seconds PTT Ratio VBG pH (7.36-7.41) VBG pCO2 (38-50) mmHg VBG pO2 mmHg VBG HCO3 mmol/L VBG O2 Saturation % VBG Base Excess mEq/L Barometric Pressure mm/Hg Sodium (136-145) mmol/L Potassium (3.5-5.1) mmol/L Chloride (98-107) mmol/L Carbon Dioxide (21-32) mmol/L Anion Gap (3-11) BUN (7-18) mg/dl Creatinine (0.6-1.4) mg/dl Est Cr Clr Drug Dosing ml/min Est GFR ( Amer) ml/min Est GFR (Non-Af Amer) ml/min BUN/Creatinine Ratio (10-20) Glucose (70-99) mg/dl POC Glucose (70-99) mg/dl Lactate (0.4-2.0) mmol/L Calcium (8.5-10.1) mg/dl Magnesium (1.8-2.4) mg/dl Total Bilirubin (0.2-1) mg/dl AST (15-37) U/L ALT (12-78) Alkaline Phosphatase (45-117) U/L Troponin I (0-0.045) ng/ml NT-Pro-B Natriuret Pep (0-900) pg/ml Total Protein (6.4-8.2) gm/dl Albumin (3.4-5.0) gm/dl Globulin (2.5-4.0) gm/dl Albumin/Globulin Ratio (0.9-2) Procalcitonin (0-0.5) ng/ml Urine Color Urine Appearance (Clear) Urine pH (4.5-7.5) Ur Specific [place] (1.000-1.030) Urine Protein (Negative) Urine Glucose (UA) (Negative) Urine Ketones (Negative) Urine Blood (Negative) Urine Nitrite (Negative) Urine Bilirubin (Negative) Urine Urobilinogen (Negative) Ur Leukocyte Esterase (Negative) Phenytoin (10-20) mcg/ml SARS-CoV-2 (PCR) NEGATIVE (Negative) Influenza Type A (PCR) Negative (Neg) Influenza Type B (PCR) Negative (Neg) RSV (RT-PCR) Negative (Neg) Administered Medications Discontinued Medications Furosemide (Furosemide 40 Mg/4 Ml Vial) 40 mg IV ONE ONE Stop: 09/02/21 18:27 Last Admin: 09/02/21 19:07 Dose: 40 mg Documented by: [id number] Piperacillin Sod/Tazobactam Sod (Zosyn) 4.5 gm in 120 mls @ 240 mls/hr IV NOW ONE Stop: 09/02/21 14:03 Last Infusion: 09/02/21 17:26 Dose: 0 mls/hr Documented by: [id number] Admin: 09/02/21 15:10 Dose: 240 mls/hr Documented by: [id number] Daptomycin 575 mg/ Syringe 11.5 mls @ 5.75 mls/min IV NOW ONE; Protocol Stop: 09/02/21 13:35 Last Admin: 09/02/21 17:40 Dose: 5.75 mls/min Documented by: [id number] Acetaminophen (Ofirmev) 1,000 mg in 100 mls @ 400 mls/hr IV NOW STA Stop: 09/02/21 13:54 Last Infusion: 09/02/21 15:14 Dose: 0 mls/hr Documented by: [id number] Admin: 09/02/21 14:31 Dose: 400 mls/hr Documented by: [id number] Morphine Sulfate (Morphine Sulfate 2 Mg/Ml Carp) 1 mg IV NOW STA Stop: 09/02/21 18:36 Last Admin: 09/02/21 19:06 Dose: 1 mg Documented by: [id number] Morphine Sulfate (Morphine Sulfate 2 Mg/Ml Carp) 2 mg IV NOW STA Stop: 09/02/21 20:10 Last Admin: 09/02/21 20:19 Dose: 2 mg Documented by: [id number] Imaging Data Radiologist's Impression: Chest X-Ray 09/02/21 13:34 XR chest 1V portable CLINICAL HISTORY: SEPSIS TECHNIQUE: Single frontal radiograph of the chest was obtained. Comparison: Comparison is made to chest 2 views 08/31/2021 FINDINGS: No lines and tubes are seen. Cardiomegaly is noted. Lungs are underinflated but clear. No evidence of pleural effusion or pneumothorax. IMPRESSION: No acute chest disease. ACT 112: Negative or not required by law. Electronically signed by: Adrian Castellanos M.D. 09/02/2021 2:[address] 09/02/21 13:34 CT head/brain wo con CLINICAL HISTORY: ams Technique: Contiguous axial CT images of the head were acquired from the base of the skull to the vertex without intravenous contrast administration. Images were viewed in brain, subdural and bone windows. Automated dose lowering techniques and/or adjustment according to patient size were utilized for this exam. Comparison: Comparison is made to CT head 07/07/2021 Findings: Areas of decreased attenuation are present in the periventricular and subcortical white matter bilaterally consistent with small vessel ischemic disease. Generalized cerebral atrophy with commensurate enlargement of the ventricles, sulci, and cisterns is also present. There is no acute intracranial hemorrhage or evidence of acute territorial infarction. No shift of the midline structures, mass effect, or extra-axial abnormalities are shown. Atherosclerotic calcifications are present in the intracranial segments of the internal carotid arteries. Encephalomalacia is again seen in the right parieto- occipital region. Right craniectomy is seen with soft tissue thickening adjacent to it, similar in appearance to prior exam. Imaged portions of the paranasal sinuses and mastoid air cells are clear. The orbits appear normal. There are no acute fractures of the calvaria or scalp swelling. Impression: Postcraniotomy changes without evidence of acute abnormality. ACT 112: Negative or not required by law. Electronically signed by: Adrian Castellanos M.D. 09/02/2021 3:00 PM Discharge Plan Visit Data Chief Complaint: Altered Mental Status Stated Complaint: CONFUSION, CELLULITUS, REFERRED BY PCP ED Provider: Severiano Dunn Discharge Problem: Cellulitis, Bilateral lower extremity edema, Confusion Discharge Instructions Interventions: ED Discharge Assessment Last Done: 09/02/21 22:11 Discharge Problem: Cellulitis Qualifiers: Site of cellulitis: extremity Site of cellulitis of extremity: lower extremity Laterality: left Qualified Code(s): L03.116 - Cellulitis of left lower limb
[2021-09-02 17:34] LABS: Influenza A virus by PCR Negative (Neg); Influenza B virus by PCR Negative (Neg); RSV by PCR Negative (Neg); SARS CoV2 RNA(COVID-19) InHosp NEGATIVE (Negative)
[2021-09-02] MEDS ORDERED: FUROSEMIDE 40 MG/4 ML VIAL IV ONE (18:26)
[2021-09-02] MEDS ORDERED: MoRPHine SULFATE 2 MG/ML CARP IV STA ×2 (18:35→20:09)
--- NOTE | 2021-09-02 18:40 | History & Physical Report ---
Date of Service September 02, 2021 Assessment & Plan (1) Cellulitis: Plan: Bilateral lower extremities left greater than right, secondary to severe lower extremity peripheral edema causing cracks in the skin and weeping No leukocytosis, no fevers, but failed outpatient therapy and cellulitis is circumferential of the bilateral lower extremities Admit to medical floor telemetry -Follow blood cultures -Continue broad-spectrum antibiotics with IV Zosyn and daptomycin -Surface wound culture collected in the ER-follow -Needs elevation and compression -Consult wound care nurse -Diuresis to reduce lower extremity edema as below -Tylenol as needed for pain, oxycodone and morphine as needed for severe pain (2) Peripheral edema: Plan: With severe lower extremity edema much worse the thinks over the last few months, but he has always had larger legs Review of his chart shows that he has gained 21 kg in the last 7 months of body weight Suspect pulmonary hypertension causing peripheral edema Echocardiogram from 07/2020 shows elevated right ventricular systolic pressures, preserved LV EF 55-60% He does not have any proteinuria and his serum albumin is fairly close to normal He could have venous reflux or lymphedema as well, but acute causes more likely secondary to right-sided heart failure -Not responding to p.o. Lasix likely secondary to poor absorption with gut edema -Start Lasix 40 mg IV twice daily -Follow BMP and replete electrolytes as needed -Follow daily weights, strict I's and O's -Low-sodium diet -Repeat echocardiogram (3) Acute encephalopathy: Plan: Likely secondary to worsening infection although he seems to be mentating fairly well with me during our interview Do not suspect meningitis although he has a history of recurrent meningitis Follow and continue to treat infection (4) Hx of brain cancer: Plan: Status post 2 resections of brain tumor, with residual left-sided hemiparesis after second surgery (5) Generalized epilepsy: Plan: Continue home lamotrigine, phenytoin Dilantin level mildly low here (6) Benign hypertension: Plan: Blood pressures are elevated possibly secondary to pain and volume overload Giving IV Lasix (7) Chronic anticoagulation: Plan: On Coumadin chronically for history of DVT INR is therapeutic care Continue home warfarin dose Follow PT/INR in the morning (8) Hemiparesis of left nondominant side: Plan: As above Supportive care PT/OT consults placed (9) Dyslipidemia: Plan: Hold home atorvastatin while on daptomycin (10) AVANI (obstructive sleep apnea): Plan: Does not tolerate CPAP (11) Memory impairment: Plan: Noted Supportive care Plan: DVT prophylaxis-Coumadin Disposition-admit to medical floor telemetry, only meets criteria for observ ation for now, but suspect he will need several days of inpatient stay for IV diuresis as he is massively volume overloaded as well as for treatment with IV antibiotics for severe cellulitis of the legs. History of Present Illness Chief Complaint: Leg swelling Primary Care Provider: TOBIN Tolbert This patient is a 65-year-old male with a history of glioblastoma multiforme status post resection, residual left-sided hemiparesis, seizure disorder, multiple episodes of meningitis, DVT on Coumadin, CKD stage II, dyslipidemia, HTN, mild cognitive impairment, and recent Covid-19 infection 3 weeks ago, who presents to the ER with worsening cellulitis of the legs left greater than right after he developed leg swelling over the last several weeks. His also notes that he has had some heaped up wound-like lesions develop on the left leg in the last week. He reports tremendous pain especially in the left leg and is having muscle spasms. He was seen by his PCP 2 days ago and started on Augmentin 875 twice daily as well as increased on his Lasix to 40 mg daily for the swelling. He was back at the PCP office again today for follow-up on his leg cellulitis and swelling and was noted to be more confused and lethargic. No fevers. He is short of breath and asked for oxygen to be placed on him despite a pulse ox of 92% in the ER His WBC count was within normal limits, his INR was therapeutic at 2.5. Lactic acid was normal. Troponin negative, proBNP in normal limits, procalcitonin negative, UA negative. CT of the head was negative. He was given IV daptomycin, IV Zosyn, IV Lasix, IV Tylenol, and morphine. He will be admitted for acute metabolic encephalopathy and worsening left lower extremity cellulitis and lower extremity edema Allergies Allergy/AdvReac Type Severity Reaction Status Date / Time No Known Allergies Allergy ` Verified 09/02/21 14:28 Home Medications Medication Instructions Recorded Confirmed Type lorazepam 1 mg tablet 1 mg PO DAILY PRN 30 Days #30 tab 09/29/20 09/02/21 Rx phenytoin sodium extended 100 mg 200 mg PO BID 30 Days #120 cap 03/29/21 12/16/21 Rx capsule (Dilantin Extended) acetaminophen 500 mg tablet 1,000 mg PO Q6H PRN 01/30/21 09/02/21 History (Tylenol Extra Strength) lamotrigine 200 mg tablet 200 mg PO BID #60 tab 07/09/21 09/02/21 Rx oxycodone 5 mg tablet 5 mg PO Q8H PRN #31 tab 07/14/21 09/02/21 Rx warfarin 5 mg tablet 5 mg PO .COMPLEX #100 tab 08/09/21 09/02/21 Rx lamotrigine 25 mg tablet 50 mg PO BID 08/12/21 09/02/21 History amoxicillin 875 mg-potassium 1 tab PO BID #20 tab 08/31/21 09/02/21 Rx clavulanate 125 mg tablet (Augmentin) furosemide 20 mg tablet 40 mg PO DAILY #60 tab 08/31/21 09/02/21 Rx atorvastatin 40 mg tablet 40 mg PO DAILY #30 tab 09/02/21 09/02/21 Rx Past Med/Surg History Medical History Benign hypertension Chronic anticoagulation CKD (chronic kidney disease) stage 2, GFR 60-89 ml/min Closed left clavicular fracture Complex partial seizure DVT of leg (deep venous thrombosis) Fall Hx of brain cancer Glioblastoma Multiforme - 2003 - s/p resection [facility] Memory impairment Meningitis multiple episodes AVANI (obstructive sleep apnea) Small bowel obstruction Surgical History H/O cataract removal with insertion of prosthetic lens H/O shoulder surgery Hx of brain surgery 2003 initial resection for GBM at [facility]; 2006 - 2nd surgery, this time at [facility], ultimately was discovered to have blood clot & scar tissue rather than recurrent cancer Family History Father , in his mid 60s of cardiac issues. CHF (congestive heart failure) Myocardial infarction Denies family history of Brain tumor Ovarian cancer Prostate cancer Breast cancer SBO (small bowel obstruction) Colorectal cancer Social History Smoking Status: Never smoker Second Hand Exposure: No; Hx Alcohol Use: No Hx Substance Use: No Preferred Language: Japanese Communication Ability: Effective Basket Person Required: No Beliefs That Will Affect Care: None marital status: Current Living Situation: Spouse Current Living Situation Comment: lives in [facility]; 2 children 1st marriage; 2 children 2nd marriage current occupational status: retired 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, 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 How many Children do You have: 4 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 Feels Safe at Home: Yes Childhood Exposure to Second-Hand Smoke: No caffeine: No Dental Care, Regularly: Yes Physical Activity Frequency: Does not Exercise Seatbelt Use: never Sunscreen Use: No Assistive Devices: Glasses Review of Systems Review of Systems: All systems reviewed & are unremarkable except as noted in HPI & below Physical Exam Constitutional: WD/WN, vitals as above Eyes: + anicteric sclerae ENMT: external ear and nose normal, oropharynx normal Neck: trachea midline, no thyromegaly Respiratory: normal respiratory effort Auscultation: + wheezes; no crackles and no rhonchi Cardiovascular: Rate/Rhythm: regular rate Heart Sounds: no murmur Extremities: + edema (3+ pitting edema bilateral lower extremities up to the ab domen) Chest (Breasts): Chest: normal inspection of chest Gastrointestinal (Abdomen): normal bowel sounds, soft, nontender, no hepatosplenomegaly Musculoskeletal: Extremities: no cyanosis and no clubbing Skin: Bilateral lower extremities left greater than right with significant erythema to the knees, warmth, and a few open weeping wounds on the left medial leg Neurologic: + focal motor deficit (4-5 strength in left upper and lower extremities) and awake Left-sided facial droop Psychiatric: A+Ox3, euthymic affect Genitourinary: no testicular masses, no penis abnormality Results & Data Results & Data ([facility]) Vital Signs (Past 12 Hours) Vital Signs Temp Pulse Pulse Resp BP BP Pulse Ox 09/02/21 17:45 96 H 22 143/90 H 96 09/02/21 17:15 17 96 09/02/21 17:00 88 16 95 09/02/21 16:45 17 95 09/02/21 16:30 92 H 18 89 L 09/02/21 16:15 15 93 09/02/21 16:00 91 H 16 09/02/21 15:45 92 H 24 95 09/02/21 15:30 20 09/02/21 15:15 93 H 21 95 09/02/21 15:00 94 H 27 H 144/86 H 95 09/02/21 14:56 159/103 H 95 09/02/21 14:30 90 22 09/02/21 14:15 90 16 09/02/21 14:00 96 H 23 95 09/02/21 13:45 93 H 22 97 09/02/21 13:30 93 H 25 H 151/105 H 97 09/02/21 13:15 94 H 20 95 09/02/21 13:00 91 H 16 145/98 H 95 09/02/21 12:58 91 H 18 95 09/02/21 12:53 37 C 90 20 150/105 H 98 Laboratory Results 09/02/21 09/02/21 09/02/21 Range/Units 16:37 14:45 14:22 WBC (4.8-10.8) K/uL RBC (4.7-6.1) M/uL Hgb (14.0-18.0) g/dL Hct (42-52) % MCV (80-100) fL MCH (25-34) pg MCHC (32-36) g/dL RDW Std Deviation (36.4-46.3) fL RDW Coeff of Paul (11.5-14.5) % Plt Count (130-400) K/uL MPV (7.4-10.4) fL Immature Gran % (Auto) % Neut % (Auto) % Lymph % (Auto) % [place] % (Auto) % Eos % (Auto) % Baso % (Auto) % Neut # (Auto) (1.4-6.5) K/uL Lymph # (Auto) (1.2-3.4) K/uL [place] # (Auto) (0.11-0.59) K/uL Eos # (Auto) (0-0.5) K/uL Baso # (Auto) (0-0.2) K/uL Immature Gran # (Auto) (0.00-0.02) K/uL PT (9.0-12.0) Seconds INR (0.9-1.1) APTT (21.0-31.0) Seconds PTT Ratio VBG pH (7.36-7.41) VBG pCO2 (38-50) mmHg VBG pO2 mmHg VBG HCO3 mmol/L VBG O2 Saturation % VBG Base Excess mEq/L Barometric Pressure mm/Hg Sodium (136-145) mmol/L Potassium (3.5-5.1) mmol/L Chloride (98-107) mmol/L Carbon Dioxide (21-32) mmol/L Anion Gap (3-11) BUN (7-18) mg/dl Creatinine (0.6-1.4) mg/dl Est Cr Clr Drug Dosing ml/min Est GFR ( Amer) ml/min Est GFR (Non-Af Amer) ml/min BUN/Creatinine Ratio (10-20) Glucose (70-99) mg/dl POC Glucose (70-99) mg/dl Lactate 1.3 (0.4-2.0) mmol/L Calcium (8.5-10.1) mg/dl Magnesium (1.8-2.4) mg/dl Total Bilirubin (0.2-1) mg/dl AST (15-37) U/L ALT (12-78) Alkaline Phosphatase (45-117) U/L Troponin I (0-0.045) ng/ml NT-Pro-B Natriuret Pep (0-900) pg/ml Total Protein (6.4-8.2) gm/dl Albumin (3.4-5.0) gm/dl Globulin (2.5-4.0) gm/dl Albumin/Globulin Ratio (0.9-2) Procalcitonin (0-0.5) ng/ml Urine Color Yellow Urine Appearance Clear (Clear) Urine pH 7.5 (4.5-7.5) Ur Specific Belk 1.018 (1.000-1.030) Urine Protein Negative (Negative) Urine Glucose (UA) Negative (Negative) Urine Ketones Negative (Negative) Urine Blood Negative (Negative) Urine Nitrite Negative (Negative) Urine Bilirubin Negative (Negative) Urine Urobilinogen Negative (Negative) Ur Leukocyte Esterase Negative (Negative) Phenytoin (10-20) mcg/ml SARS-CoV-2 (PCR) NEGATIVE (Negative) Influenza Type A (PCR) Negative (Neg) Influenza Type B (PCR) Negative (Neg) RSV (RT-PCR) Negative (Neg) 09/02/21 09/02/2109/02/21 Range/Units 14:22 14:22 14:22 WBC (4.8-10.8) K/uL RBC (4.7-6.1) M/uL Hgb (14.0-18.0) g/dL Hct (42-52) % MCV (80-100) fL MCH (25-34) pg MCHC (32-36) g/dL RDW Std Deviation (36.4-46.3) fL RDW Coeff of Paul (11.5-14.5) % Plt Count (130-400) K/uL MPV (7.4-10.4) fL Immature Gran % (Auto) % Neut % (Auto) % Lymph % (Auto) % [place] % (Auto) % Eos % (Auto) % Baso % (Auto) % Neut # (Auto) (1.4-6.5) K/uL Lymph # (Auto) (1.2-3.4) K/uL [place] # (Auto) (0.11-0.59) K/uL Eos # (Auto) (0-0.5) K/uL Baso # (Auto) (0-0.2) K/uL Immature Gran # (Auto) (0.00-0.02) K/uL PT 24.0 H (9.0-12.0) Seconds INR 2.5 H (0.9-1.1) APTT 53.1 H* (21.0-31.0) Seconds PTT Ratio 2.0 VBG pH 7.38 (7.36-7.41) VBG pCO2 51 H (38-50) mmHg VBG pO2 30 mmHg VBG HCO3 29 mmol/L VBG O2 Saturation < 60.0 % VBG Base Excess 3.1 mEq/L Barometric Pressure 729.6 mm/Hg Sodium (136-145) mmol/L Potassium (3.5-5.1) mmol/L Chloride (98-107) mmol/L Carbon Dioxide (21-32) mmol/L Anion Gap (3-11) BUN (7-18) mg/dl Creatinine (0.6-1.4) mg/dl Est Cr Clr Drug Dosing ml/min Est GFR ( Amer) ml/min Est GFR (Non-Af Amer) ml/min BUN/Creatinine Ratio (10-20) Glucose (70-99) mg/dl POC Glucose (70-99) mg/dl Lactate (0.4-2.0) mmol/L Calcium (8.5-10.1) mg/dl Magnesium (1.8-2.4) mg/dl Total Bilirubin (0.2-1) mg/dl AST (15-37) U/L ALT (12-78) Alkaline Phosphatase (45-117) U/L Troponin I (0-0.045) ng/ml NT-Pro-B Natriuret Pep (0-900) pg/ml Total Protein (6.4-8.2) gm/dl Albumin (3.4-5.0) gm/dl Globulin (2.5-4.0) gm/dl Albumin/Globulin Ratio (0.9-2) Procalcitonin < 0.05 (0-0.5) ng/ml Urine Color Urine Appearance (Clear) Urine pH (4.5-7.5) Ur Specific Belk (1.000-1.030) Urine Protein (Negative) Urine Glucose (UA) (Negative) Urine Ketones (Negative) Urine Blood (Negative) Urine Nitrite (Negative) Urine Bilirubin (Negative) Urine Urobilinogen (Negative) Ur Leukocyte Esterase (Negative) Phenytoin (10-20) mcg/ml SARS-CoV-2 (PCR) (Negative) Influenza Type A (PCR) (Neg) Influenza Type B (PCR) (Neg) RSV (RT-PCR) (Neg) 09/02/21 09/02/21 09/02/21 Range/Units 14:22 14:20 13:58 WBC 6.81 (4.8-10.8) K/uL RBC 4.24 L (4.7-6.1) M/uL Hgb 13.9 L (14.0-18.0) g/dL Hct 41.8 L (42-52) % MCV 98.6 (80-100) fL MCH 32.8 (25-34) pg MCHC 33.3 (32-36) g/dL RDW Std Deviation 49.9 H (36.4-46.3) fL RDW Coeff of Paul 14.0 (11.5-14.5) % Plt Count 214 (130-400) K/uL MPV 9.6 (7.4-10.4) fL Immature Gran % (Auto) 0.3 % Neut % (Auto) 73.7 % Lymph % (Auto) 11.5 % [place] % (Auto) 11.9 % Eos % (Auto) 2.3 % Baso % (Auto) 0.3 % Neut # (Auto) 5.02 (1.4-6.5) K/uL Lymph # (Auto) 0.78 L (1.2-3.4) K/uL [place] # (Auto) 0.81 H (0.11-0.59) K/uL Eos # (Auto) 0.16 (0-0.5) K/uL Baso # (Auto) 0.02 (0-0.2) K/uL Immature Gran # (Auto) 0.02 (0.00-0.02) K/uL PT (9.0-12.0) Seconds INR (0.9-1.1) APTT (21.0-31.0) Seconds PTT Ratio VBG pH (7.36-7.41) VBG pCO2 (38-50) mmHg VBG pO2 mmHg VBG HCO3 mmol/L VBG O2 Saturation % VBG Base Excess mEq/L Barometric Pressure mm/Hg Sodium (136-145) mmol/L Potassium (3.5-5.1) mmol/L Chloride (98-107) mmol/L Carbon Dioxide (21-32) mmol/L Anion Gap (3-11) BUN (7-18) mg/dl Creatinine (0.6-1.4) mg/dl Est Cr Clr Drug Dosing ml/min Est GFR ( Amer) ml/min Est GFR (Non-Af Amer) ml/min BUN/Creatinine Ratio (10-20) Glucose (70-99) mg/dl POC Glucose 89 (70-99) mg/dl Lactate (0.4-2.0) mmol/L Calcium (8.5-10.1) mg/dl Magnesium (1.8-2.4) mg/dl Total Bilirubin (0.2-1) mg/dl AST (15-37) U/L ALT (12-78) Alkaline Phosphatase (45-117) U/L Troponin I (0-0.045) ng/ml NT-Pro-B Natriuret Pep (0-900) pg/ml Total Protein (6.4-8.2) gm/dl Albumin (3.4-5.0) gm/dl Globulin (2.5-4.0) gm/dl Albumin/Globulin Ratio (0.9-2) Procalcitonin (0-0.5) ng/ml Urine Color Urine Appearance (Clear) Urine pH (4.5-7.5) Ur Specific Belk (1.000-1.030) Urine Protein (Negative) Urine Glucose (UA) (Negative) Urine Ketones (Negative) Urine Blood (Negative) Urine Nitrite (Negative) Urine Bilirubin (Negative) Urine Urobilinogen (Negative) Ur Leukocyte Esterase (Negative) Phenytoin 9.3 L (10-20) mcg/ml SARS-CoV-2 (PCR) (Negative) Influenza Type A (PCR) (Neg) Influenza Type B (PCR) (Neg) RSV (RT-PCR) (Neg) 09/02/21 Range/Units 13:58 WBC (4.8-10.8) K/uL RBC (4.7-6.1) M/uL Hgb (14.0-18.0) g/dL Hct (42-52) % MCV (80-100) fL MCH (25-34) pg MCHC (32-36) g/dL RDW Std Deviation (36.4-46.3) fL RDW Coeff of Paul (11.5-14.5) % Plt Count (130-400) K/uL MPV (7.4-10.4) fL Immature Gran % (Auto) % Neut % (Auto) % Lymph % (Auto) % [place] % (Auto) % Eos % (Auto) % Baso % (Auto) % Neut # (Auto) (1.4-6.5) K/uL Lymph # (Auto) (1.2-3.4) K/uL [place] # (Auto) (0.11-0.59) K/uL Eos # (Auto) (0-0.5) K/uL Baso # (Auto) (0-0.2) K/uL Immature Gran # (Auto) (0.00-0.02) K/uL PT (9.0-12.0) Seconds INR (0.9-1.1) APTT (21.0-31.0) Seconds PTT Ratio VBG pH (7.36-7.41) VBG pCO2 (38-50) mmHg VBG pO2 mmHg VBG HCO3 mmol/L VBG O2 Saturation % VBG Base Excess mEq/L Barometric Pressure mm/Hg Sodium 138 (136-145) mmol/L Potassium 4.0 (3.5-5.1) mmol/L Chloride 103 (98-107) mmol/L Carbon Dioxide 29 (21-32) mmol/L Anion Gap 6.0 (3-11) BUN 12 (7-18) mg/dl Creatinine 0.93 (0.6-1.4) mg/dl Est Cr Clr Drug Dosing 108.2 ml/min Est GFR ( Amer) 100.2 ml/min Est GFR (Non-Af Amer) 86.5 ml/min BUN/Creatinine Ratio 12.5 (10-20) Glucose 98 (70-99) mg/dl POC Glucose (70-99) mg/dl Lactate (0.4-2.0) mmol/L Calcium 9.3 (8.5-10.1) mg/dl Magnesium 2.2 (1.8-2.4) mg/dl Total Bilirubin 0.4 (0.2-1) mg/dl AST 26 (15-37) U/L ALT 33 (12-78) Alkaline Phosphatase 179 H (45-117) U/L Troponin I < 0.015 (0-0.045) ng/ml NT-Pro-B Natriuret Pep 225 (0-900) pg/ml Total Protein 7.5 (6.4-8.2) gm/dl Albumin 3.5 (3.4-5.0) gm/dl Globulin 4.0 (2.5-4.0) gm/dl Albumin/Globulin Ratio 0.9 (0.9-2) Procalcitonin (0-0.5) ng/ml Urine Color Urine Appearance (Clear) Urine pH (4.5-7.5) Ur Specific Belk (1.000-1.030) Urine Protein (Negative) Urine Glucose (UA) (Negative) Urine Ketones (Negative) Urine Blood (Negative) Urine Nitrite (Negative) Urine Bilirubin (Negative) Urine Urobilinogen (Negative) Ur Leukocyte Esterase (Negative) Phenytoin (10-20) mcg/ml SARS-CoV-2 (PCR) (Negative) Influenza Type A (PCR) (Neg) Influenza Type B (PCR) (Neg) RSV (RT-PCR) (Neg) Diagnostic Findings Chest X-Ray 09/02/21 13:34 XR chest 1V portable CLINICAL HISTORY: SEPSIS TECHNIQUE: Single frontal radiograph of the chest was obtained. Comparison: Comparison is made to chest 2 views 08/31/2021 FINDINGS: No lines and tubes are seen. Cardiomegaly is noted. Lungs are underinflated but clear. No evidence of pleural effusion or pneumothorax. IMPRESSION: No acute chest disease. ACT 112: Negative or not required by law. Electronically signed by: Adrian Castellanos M.D. 09/02/2021 2:[address] 09/02/21 13:34 CT head/brain wo con CLINICAL HISTORY: ams Technique: Contiguous axial CT images of the head were acquired from the base of the skull to the vertex without intravenous contrast administration. Images were viewed in brain, subdural and bone windows. Automated dose lowering techniques and/or adjustment according to patient size were utilized for this exam. Comparison: Comparison is made to CT head 07/07/2021 Findings: Areas of decreased attenuation are present in the periventricular and subcortical white matter bilaterally consistent with small vessel ischemic di sease. Generalized cerebral atrophy with commensurate enlargement of the ventricles, sulci, and cisterns is also present. There is no acute intracranial hemorrhage or evidence of acute territorial infarction. No shift of the midline structures, mass effect, or extra-axial abnormalities are shown. Atherosclerotic calcifications are present in the intracranial segments of the internal carotid arteries. Encephalomalacia is again seen in the right parieto- occipital region. Right craniectomy is seen with soft tissue thickening adjacent to it, similar in appearance to prior exam. Imaged portions of the paranasal sinuses and mastoid air cells are clear. The orbits appear normal. There are no acute fractures of the calvaria or scalp swelling. Impression: Postcraniotomy changes without evidence of acute abnormality. ACT 112: Negative or not required by law. Electronically signed by: Adrian Castellanos M.D. 09/02/2021 3:00 PM ECG Additional Comments: ECG on 09/02/2021 at 1305 with normal sinus rhythm, no ischemic changes Code Status & VTE Plan Code Status DNR/DNI as per discussion with patient with his at the bedside VTE Prophylaxis Plan VTE Prophylaxis will be ordered: Yes PG Care Time/CCT Total # of Minutes Spent Total Time Spent with Patient: Total time spent is greater than 50% in coordination of care (as documented) at patient's floor/unit and/or counseling patient: Coding Level of Care Code INT OBSERVATION CARE 70M LVL 3 Diagnoses Peripheral edema R60.9 Hx of brain cancer Z85.841 Generalized epilepsy G40.309 Benign hypertension I10 Chronic anticoagulation Z79.01 Hemiparesis of left nondominant side G81.94 Hemiparesis etiology: unspecified Dyslipidemia E78.5 AVANI (obstructive sleep apnea) G47.33 Memory impairment R41.3 Cellulitis L03.90 Acute encephalopathy G93.40 (1) Hemiparesis of left nondominant side Hemiparesis etiology: unspecified Qualified Code(s): G81.94 - Hemiplegia, unspecified affecting left nondominant side
[2021-09-02] MEDS: PHENYTOIN SODIUM ER 100 MG CAP PO SCH (23:35)
[2021-09-02] MEDS: oxyCODONE HCL IR 5 MG TAB (IMMEDIATE RELEASE) PO PRN (23:35)
[2021-09-02] MEDS: lamoTRIgine 25 MG TAB PO SCH (23:35)
[2021-09-02] MEDS: lamoTRIgine 100 MG TAB PO SCH (23:41)
[2021-09-03] MEDS: PIPERACILLIN/TAZOBACTAM 4.5 GM in DEXTROSE 5% 100 ML IV SCH ×3 (00:16→16:30)
[2021-09-03] MEDS: MoRPHine SULFATE 2 MG/ML CARP IV PRN (01:51)
[2021-09-03] MEDS: ACETAMINOPHEN 500 MG TAB PO PRN ×2 (04:34→09:36)
[2021-09-03 05:40] LABS: INR 2.5 (0.9-1.1)
[2021-09-03 05:54] LABS: Eosinophils # (auto) 0.03 K/uL (0-0.5); Eosinophils % (auto) 0.4 %; Hematocrit (blood only) 40.4 % (42-52); Hemoglobin 13.6 g/dL (14.0-18.0); Immature Granulocytes # (auto) 0.01 K/uL (0.00-0.02); Immature Granulocytes % (auto) 0.1 %; Lymphocytes # (auto) 0.63 K/uL (1.2-3.4); Lymphocytes % (auto) 8.7 %; Mean Corpuscular Hemoglobin 33.2 pg (25-34); Mean Corpuscular Hgb Conc 33.7 g/dL (32-36); Mean Corpuscular Volume 98.5 fL (80-100); Mean Platelet Volume 9.2 fL (7.4-10.4); Monocytes # (auto) 0.71 K/uL (0.11-0.59); Monocytes % (auto) 9.8 %; Neutrophils # (auto) 5.86 K/uL (1.4-6.5); Platelet Count 245 K/uL (130-400); RDW Standard Deviation 50.5 fL (36.4-46.3); White Blood Count 7.24 K/uL (4.8-10.8)
[2021-09-03 06:53] LABS: Albumin Globulin Ratio 0.9 (0.9-2); Albumin Level 3.4 gm/dl (3.4-5.0); BUN Creatinine Ratio 12.5 (10-20); Bilirubin,Total 0.7 mg/dl (0.2-1); Creatinine Clr Calc Pharmacy 97.7 ml/min; Est GFR (African American) 88.6 ml/min; Est GFR (Non-African American) 76.4 ml/min; Globulin 3.9 gm/dl (2.5-4.0); Total Protein 7.3 gm/dl (6.4-8.2)
[2021-09-03] MEDS: PHENYTOIN SODIUM ER 100 MG CAP PO SCH ×2 (09:24→22:26)
[2021-09-03] MEDS: lamoTRIgine 100 MG TAB PO SCH ×2 (09:24→22:26)
[2021-09-03] MEDS: lamoTRIgine 25 MG TAB PO SCH ×2 (09:24→22:26)
[2021-09-03] MEDS: POLYETHYLENE (MIRALAX) 17 GM PACK PO PRN (09:37)
[2021-09-03] MEDS: FUROSEMIDE 40 MG/4 ML VIAL IV SCH ×2 (09:38→20:09)
--- NOTE | 2021-09-03 09:54 | XCELERA ---
[id number]
[2021-09-03] MEDS: oxyCODONE HCL IR 5 MG TAB (IMMEDIATE RELEASE) PO PRN ×2 (12:11→20:09)
[2021-09-03] MEDS: DAPTOmycin 375 MG in SYRINGE 0 ML IV SCH (17:01)
[2021-09-03] MEDS: WARFARIN SOD 2.5 MG TAB PO SCH (17:03)
--- NOTE | 2021-09-03 22:13 | Electrocardiogram Report ---
Test Reason : Blood Pressure : / mmHG Vent. Rate : 092 BPM Atrial Rate : 092 BPM P-R Int : 152 ms QRS Dur : 088 ms QT Int : 372 ms P-R-T Axes : 033 002 045 degrees QTc Int : 460 ms Normal sinus rhythm Normal ECG When compared with ECG of 12-AUG-2021 02:39, Aberrant conduction is no longer Present Confirmed by Nayan Phan ([id number]) on 09/03/2021 10:13:03 PM Referred By: Anjana Villar Confirmed By:Nayan Phan
--- NOTE | 2021-09-03 22:15 | Hospitalist Progress Note ---
Date of Service September 03, 2021 Assessment & Plan (1) Cellulitis: Plan: Bilateral lower extremities left greater than right, secondary to severe lower extremity peripheral edema causing cracks in the skin and weeping No leukocytosis, no fevers, but failed outpatient therapy and cellulitis is circumferential of the bilateral lower extremities Admit to medical floor telemetry -Significant improvement on Day 2. -Follow blood cultures: still pending. -Continue broad-spectrum antibiotics with IV Zosyn and daptomycin -Surface wound culture collected in the ER-follow -Needs elevation and compression -Consult wound care nurse -Diuresis to reduce lower extremity edema as below -Tylenol as needed for pain, oxycodone and morphine as needed for severe pain (2) Peripheral edema: Plan: With severe lower extremity edema much worse the thinks over the last few months, but he has always had larger legs Review of his chart shows that he has gained 21 kg in the last 7 months of body weight Suspect pulmonary hypertension causing peripheral edema Echocardiogram from 07/2020 shows elevated right ventricular systolic pressures, preserved LV EF 55-60% He does not have any proteinuria and his serum albumin is fairly close to normal He could have venous reflux or lymphedema as well, but acute causes more likely secondary to right-sided heart failure -Not responding to p.o. Lasix likely secondary to poor absorption with gut edema -Start Lasix 40 mg IV twice daily: will continue tomorrow. -Follow BMP and replete electrolytes as needed -Follow daily weights, strict I's and O's -Low-sodium diet -Repeat echocardiogram: no new changes, (3) Acute encephalopathy: Plan: Likely secondary to worsening infection although he seems to be mentating fairly well with me during our interview Do not suspect meningitis although he has a history of recurrent meningitis Follow and continue to treat infection Patient appears more awake. (4) Hx of brain cancer: Plan: Status post 2 resections of brain tumor, with residual left-sided hemiparesis after second surgery (5) Generalized epilepsy: Plan: Continue home lamotrigine, phenytoin Dilantin level mildly low here (6) Benign hypertension: Plan: Blood pressures are elevated possibly secondary to pain and volume overload Giving IV Lasix (7) Chronic anticoagulation: Plan: On Coumadin chronically for history of DVT INR is therapeutic care Continue home warfarin dose Follow PT/INR in the morning (8) Hemiparesis of left nondominant side: Plan: As above Supportive care PT/OT consults placed (9) Dyslipidemia: Plan: Hold home atorvastatin while on daptomycin (10) AVANI (obstructive sleep apnea): Plan: Does not tolerate CPAP (11) Memory impairment: Plan: Noted Supportive care Plan: DVT prophylaxis-Coumadin admit as patient requires IV antibiotics and iV diuretic Admission and Anticipated Discharge Date Admission Date: September 02, 2021 Subjective Patient's reports decreased redness and swelling in his legs. Review of Systems Review of Systems: All systems reviewed & are unremarkable except as noted in HPI & below Physical Exam Physical Exam: Constitutional: WD/WN, vitals as above Eyes: + anicteric sclerae ENMT: external ear and nose normal, oropharynx normal Neck: trachea midline, no thyromegaly Respiratory: normal respiratory effort Auscultation: + wheezes; no crackles and no rhonchi Cardiovascular: Rate/Rhythm: regular rate Heart Sounds: no murmur Extremities: + edema (3+ pitting edema bilateral lower extremities up to the abdomen) Chest (Breasts): Chest: normal inspection of chest Gastrointestinal (Abdomen): normal bowel sounds, soft, nontender, no hepatosplenomegaly Musculoskeletal: Extremities: no cyanosis and no clubbing Skin: Bilateral lower extremities left greater than right with significant erythema to the knees, warmth, and a few open weeping wounds on the left medial leg Neurologic: + focal motor deficit (4-5 strength in left upper and lower extremities) and awake Left-sided facial droop Psychiatric: A+Ox3, euthymic affect Genitourinary: no testicular masses, no penis abnormality Results & Data Results & Data ([facility]) Vital Signs (Past 12 Hours) Vital Signs Temp Pulse Resp BP Pulse Ox 09/03/21 20:15 100 H 20 110/78 95 09/03/21 16:51 94 H 18 120/77 95 09/03/21 13:18 96 09/03/21 11:20 36.7 C 88 18 120/77 93 PG Care Time/CCT Total # of Minutes Spent Total Time Spent with Patient: Total time spent is greater than 50% in coordination of care (as documented) at patient's floor/unit and/or counseling patient: Coding Level of Care Code 90488 Subseq Hosp Care Lvl 2 Diagnoses Cellulitis L03.116 Laterality: left Site of cellulitis: extremity Site of cellulitis of extremity: lower extremity Peripheral edema R60.9 Acute encephalopathy G93.40 Hx of brain cancer Z85.841 Generalized epilepsy G40.309 Benign hypertension I10 Chronic anticoagulation Z79.01 Hemiparesis of left nondominant side G81.94 Hemiparesis etiology: unspecified Dyslipidemia E78.5 AVANI (obstructive sleep apnea) G47.33 Memory impairment R41.3 (1) Cellulitis Laterality: left Site of cellulitis: extremity Site of cellulitis of extremity: lower extremity Qualified Code(s): L03.116 - Cellulitis of left lower limb (2) Hemiparesis of left nondominant side Hemiparesis etiology: unspecified Qualified Code(s): G81.94 - Hemiplegia, unspecified affecting left nondominant side
[2021-09-04] MEDS: PIPERACILLIN/TAZOBACTAM 4.5 GM in DEXTROSE 5% 100 ML IV SCH ×3 (01:15→15:55)
[2021-09-04] MEDS: ACETAMINOPHEN 500 MG TAB PO PRN ×2 (01:21→09:29)
[2021-09-04] MEDS: MoRPHine SULFATE 2 MG/ML CARP IV PRN (01:21)
[2021-09-04 07:45] LABS: Hematocrit (blood only) 39.6 % (42-52); Hemoglobin 13.3 g/dL (14.0-18.0); Mean Corpuscular Hemoglobin 33.4 pg (25-34); Mean Corpuscular Hgb Conc 33.6 g/dL (32-36); Mean Corpuscular Volume 99.5 fL (80-100); Mean Platelet Volume 9.2 fL (7.4-10.4); Platelet Count 233 K/uL (130-400); RDW Coefficient of Variation 13.8 % (11.5-14.5); RDW Standard Deviation 50.4 fL (36.4-46.3); Red Blood Count 3.98 M/uL (4.7-6.1); White Blood Count 6.74 K/uL (4.8-10.8)
[2021-09-04 08:12] LABS: BUN Creatinine Ratio 13.6 (10-20); Calcium 8.6 mg/dl (8.5-10.1); Creatinine Clr Calc Pharmacy 94.1 ml/min; Est GFR (African American) 84.6 ml/min; Potassium 3.6 mmol/L (3.5-5.1)
[2021-09-04] MEDS: FUROSEMIDE 40 MG/4 ML VIAL IV SCH ×2 (09:25→16:30)
[2021-09-04] MEDS: lamoTRIgine 25 MG TAB PO SCH ×2 (09:29→21:41)
[2021-09-04] MEDS: lamoTRIgine 100 MG TAB PO SCH ×2 (09:29→21:41)
[2021-09-04] MEDS: PHENYTOIN SODIUM ER 100 MG CAP PO SCH ×2 (09:30→21:41)
[2021-09-04] MEDS: oxyCODONE HCL IR 5 MG TAB (IMMEDIATE RELEASE) PO PRN (11:19)
--- NOTE | 2021-09-04 11:29 | Hospitalist Progress Note ---
Date of Service September 04, 2021 Assessment & Plan (1) Cellulitis: Plan: Bilateral lower extremities left greater than right, secondary to severe lower extremity peripheral edema causing cracks in the skin and weeping No leukocytosis, no fevers, but failed outpatient therapy and cellulitis is circumferential of the bilateral lower extremities Admit to medical floor telemetry -Significant improvement on Day 2. And look even better on Day 3. Given significant improvement, may consider stopping MRSA coverage. -Follow blood cultures: still pending. -Continue broad-spectrum antibiotics with IV Zosyn and daptomycin -Surface wound culture collected in the ER-follow -Needs elevation and compression -Consult wound care nurse -Continue BID IV Diuresis to reduce lower extremity edema as below -Tylenol as needed for pain, oxycodone and morphine as needed for severe pain (2) Peripheral edema: Plan: With severe lower extremity edema much worse the thinks over the last few months, but he has always had larger legs Review of his chart shows that he has gained 21 kg in the last 7 months of body weight Suspect pulmonary hypertension causing peripheral edema Echocardiogram from 07/2020 shows elevated right ventricular systolic pressures, preserved LV EF 55-60% He does not have any proteinuria and his serum albumin is fairly close to normal He could have venous reflux or lymphedema as well, but acute causes more likely secondary to right-sided heart failure -Not responding to p.o. Lasix likely secondary to poor absorption with gut edema -Lasix 40 mg IV twice daily: will continue tomorrow. -May need oral bumex or torsemide as this has better bioavailabilty orally -Follow BMP and replete electrolytes as needed -Follow daily weights, strict I's and O's -Low-sodium diet -Repeat echocardiogram: no new changes, (3) Acute encephalopathy: Plan: Likely secondary to worsening infection although he seems to be mentating fairly well with me during our interview Do not suspect meningitis although he has a history of recurrent meningitis Follow and continue to treat infection Patient appears more awake. (4) Hx of brain cancer: Plan: Status post 2 resections of brain tumor, with residual left-sided hemiparesis after second surgery (5) Generalized epilepsy: Plan: Continue home lamotrigine, phenytoin Dilantin level mildly low here (6) Benign hypertension: Plan: Blood pressures are elevated possibly secondary to pain and volume overload Giving IV Lasix (7) Chronic anticoagulation: Plan: On Coumadin chronically for history of DVT INR is therapeutic care Continue home warfarin dose Follow PT/INR in the morning (8) Hemiparesis of left nondominant side: Plan: As above Supportive care PT/OT consults placed (9) Dyslipidemia: Plan: Hold home atorvastatin while on daptomycin (10) AVANI (obstructive sleep apnea): Plan: Does not tolerate CPAP (11) Memory impairment: Plan: Noted Supportive care Plan: DVT prophylaxis-Coumadin admit as patient requires IV antibiotics and iV diuretic Admission and Anticipated Discharge Date Admission Date: September 02, 2021 Subjective Patient reports that he has been peeing throughout the day. No new symptoms. Review of Systems Review of Systems: All systems reviewed & are unremarkable except as noted in HPI & below Physical Exam Physical Exam: Constitutional: WD/WN, vitals as above Eyes: + anicteric sclerae ENMT: external ear and nose normal, oropharynx normal Neck: trachea midline, no thyromegaly Respiratory: normal respiratory effort Auscultation: + wheezes; no crackles and no rhonchi Cardiovascular: Rate/Rhythm: regular rate Heart Sounds: no murmur Extremities: + edema (3+ pitting edema bilateral lower extremities up to the abdomen) Chest (Breasts): Chest: normal inspection of chest Gastrointestinal (Abdomen): normal bowel sounds, soft, nontender, no hepatosplenomegaly Musculoskeletal: Extremities: no cyanosis and no clubbing, Skin: Bilateral lower extremities left greater than right with significant edema, mild erythema with vesicles and papules noted on the arnterior lower legs. Left medial leg has dry dressing Neurologic: + focal motor deficit (4-5 strength in left upper and lower extremities) and awake Left-sided facial droop Psychiatric: A+Ox3, euthymic affect Genitourinary: no testicular masses, no penis abnormality Results & Data Results & Data ([facility]) Vital Signs (Past 12 Hours) Vital Signs Temp Pulse Pulse Pulse Resp BP BP 09/04/21 08:07 99 H 09/04/21 07:15 91 H 09/04/21 07:05 36.8 C 98 H 20 127/85 09/04/21 04:00 37 C 103 H 16 135/92 09/04/21 00:00 36.8 C 103 H 16 127/97 Pulse Ox 09/04/21 08:07 09/04/21 07:15 09/04/21 07:05 94 09/04/21 04:00 95 09/04/21 00:00 92 PG Care Time/CCT Total # of Minutes Spent Total Time Spent with Patient: Total time spent is greater than 50% in coordination of care (as documented) at patient's floor/unit and/or counseling patient: Coding Level of Care Code 69901 Subseq Hosp Care Lvl 2 Diagnoses Cellulitis L03.116 Laterality: left Site of cellulitis: extremity Site of cellulitis of extremity: lower extremity Peripheral edema R60.9 Acute encephalopathy G93.40 Hx of brain cancer Z85.841 Generalized epilepsy G40.309 Benign hypertension I10 Chronic anticoagulation Z79.01 Hemiparesis of left nondominant side G81.94 Hemiparesis etiology: unspecified Dyslipidemia E78.5 AVANI (obstructive sleep apnea) G47.33 Memory impairment R41.3 (1) Cellulitis Laterality: left Site of cellulitis: extremity Site of cellulitis of extremity: lower extremity Qualified Code(s): L03.116 - Cellulitis of left lower limb (2) Hemiparesis of left nondominant side Hemiparesis etiology: unspecified Qualified Code(s): G81.94 - Hemiplegia, unspecified affecting left nondominant side
[2021-09-04] MEDS: POTASSIUM CHLORIDE CRTAB 20 MEQ TABCR PO SCH ×2 (13:34→21:41)
[2021-09-04] MEDS: WARFARIN SOD 5 MG TAB PO SCH (15:56)
[2021-09-04] MEDS: DAPTOmycin 375 MG in SYRINGE 0 ML IV SCH (15:56)
[2021-09-04] MEDS: POLYETHYLENE (MIRALAX) 17 GM PACK PO PRN (17:50)
[2021-09-05] MEDS: PIPERACILLIN/TAZOBACTAM 4.5 GM in DEXTROSE 5% 100 ML IV SCH ×2 (00:39→10:21)
--- NOTE | 2021-09-05 00:39 | Ultrasound Report ---
ULTRASOUND BILATERAL LOWER EXTREMITY VENOUS CLINICAL HISTORY: Leg pain and swelling. Erythema. COMPARISON STUDY: Bilateral lower extremity venous ultrasound dated 01/30/2021 TECHNIQUE: Real-time, grayscale, and color Doppler sonography of the deep veins of the right and left lower extremity was performed from the inguinal crease to the calf. Compression and augmentation wer e utilized. FINDINGS: There is no sonographic evidence of deep venous thrombosis identified in the right or left lower extremity. The common femoral, superficial femoral, and popliteal veins are patent and normally compressible bilaterally. The greater saphenous vein and the profunda femoris vein at the junction w ith the common femoral vein are clear in both legs. The visualized calf veins are patent bilaterally. A prominent left inguinal lymph node may be reactive. IMPRESSION: There is no sonographic evidence of deep venous thrombosis identified in the right or lef t lower extremity. ACT 112: Negative or not required by law. Electronically signed by: John De La Garza M.D. 09/05/2021 12:37 AM
[2021-09-05] MEDS: MoRPHine SULFATE 2 MG/ML CARP IV PRN ×2 (01:31→07:56)
[2021-09-05 08:22] LABS: Basophils # (auto) 0.02 K/uL (0-0.2); Basophils % (auto) 0.2 %; Eosinophils # (auto) 0.21 K/uL (0-0.5); Eosinophils % (auto) 2.2 %; Hematocrit (blood only) 43.7 % (42-52); Hemoglobin 14.6 g/dL (14.0-18.0); Immature Granulocytes # (auto) 0.02 K/uL (0.00-0.02); Immature Granulocytes % (auto) 0.2 %; Lymphocytes # (auto) 1.16 K/uL (1.2-3.4); Lymphocytes % (auto) 12.3 %; Mean Corpuscular Hemoglobin 32.8 pg (25-34); Mean Corpuscular Hgb Conc 33.4 g/dL (32-36); Mean Corpuscular Volume 98.2 fL (80-100); Monocytes # (auto) 0.93 K/uL (0.11-0.59); Monocytes % (auto) 9.9 %; Neutrophils # (auto) 7.07 K/uL (1.4-6.5); Neutrophils % (auto) 75.2 %; Platelet Count 225 K/uL (130-400); RDW Coefficient of Variation 13.7 % (11.5-14.5); Red Blood Count 4.45 M/uL (4.7-6.1); White Blood Count 9.41 K/uL (4.8-10.8)
[2021-09-05 08:49] LABS: BUN Creatinine Ratio 16.7 (10-20); Calcium 9.2 mg/dl (8.5-10.1); Est GFR (African American) 85.5 ml/min; Est GFR (Non-African American) 73.8 ml/min; Potassium 3.6 mmol/L (3.5-5.1)
[2021-09-05] MEDS: POTASSIUM CHLORIDE CRTAB 20 MEQ TABCR PO SCH ×3 (09:51→23:14)
[2021-09-05] MEDS: lamoTRIgine 100 MG TAB PO SCH ×2 (09:51→23:14)
[2021-09-05] MEDS: lamoTRIgine 25 MG TAB PO SCH ×2 (09:51→23:13)
[2021-09-05] MEDS: PHENYTOIN SODIUM ER 100 MG CAP PO SCH ×2 (09:52→23:13)
[2021-09-05] MEDS: FUROSEMIDE 40 MG/4 ML VIAL IV SCH ×2 (09:52→16:22)
[2021-09-05] MEDS: ACETAMINOPHEN 500 MG TAB PO PRN (09:53)
[2021-09-05] MEDS: oxyCODONE HCL IR 5 MG TAB (IMMEDIATE RELEASE) PO PRN (12:04)
[2021-09-05] MEDS: POLYETHYLENE (MIRALAX) 17 GM PACK PO PRN (12:05)
--- NOTE | 2021-09-05 12:51 | Hospitalist Progress Note ---
Date of Service September 05, 2021 Assessment & Plan (1) Cellulitis: Plan: Bilateral lower extremities left greater than right, secondary to severe lower extremity peripheral edema causing cracks in the skin and weeping No leukocytosis, no fevers. Failed outpatient therapy prior to admission Periportal erythema has gradually improved Daptomycin discontinued, Zosyn narrowed to Rocephin Blood cultures with no growth to date Continue elevation/compression Wound care consulted Patient remains clinically volume overloaded, continue twice daily diuresis as noted below (2) Peripheral edema: Plan: With severe lower extremity edema much worse the thinks over the last few months, but he has always had larger legs - Review of his chart shows that he has gained 21 kg in the last 7 months of body weight - Suspect pulmonary hypertension causing peripheral edema - Echocardiogram from 07/2020 shows elevated right ventricular systolic pressures, preserved LV EF 55-60% - No proteinuria, serum albumin not severely decreased Suspect 2/2 diastolic failure Suspect failure of oral Lasix due to edema Patient diuresing adequately with IV Lasix Continue Lasix 40 mg IV twice daily, creatinine tolerating Anticipate conversion to Bumex p.o. at discharge Low-sodium diet BMP daily Patient remains clinically volume overloaded, recommend continued IV diuresis at this time (3) Acute encephalopathy: Plan: History of recurrent meningitis No signs of meningitis at time of admission Somewhat somnolent, but arouses easily and answers questions appropriately during exam Follow clinically (4) Hx of brain cancer: Plan: Status post 2 resections of brain tumor, with residual left-sided hemiparesis after second surgery (5) Generalized epilepsy: Plan: Continue home lamotrigine, phenytoin Dilantin level mildly low here (6) Benign hypertension: Plan: Blood pressures are elevated possibly secondary to pain and volume overload Normotensive 09/05 (7) Chronic anticoagulation: Plan: On Coumadin chronically for history of DVT Continue home warfarin PT/INR, target 23 (8) Hemiparesis of left nondominant side: Plan: As above Supportive care PT/OT consults placed (9) Dyslipidemia: Plan: _ Atorvastatin held while on dapto. Consider restart tomorrow (10) AVANI (obstructive sleep apnea): Plan: Does not tolerate CPAP (11) Memory impairment: Plan: Noted Supportive care Plan: DVT prophylaxis-Coumadin admit as patient requires IV antibiotics and iV diuretics Admission and Anticipated Discharge Date Admission Date: September 02, 2021 Subjective Legs continue to be somewhat tender, swollen, but erythema has improved per patient. No fever/chills overnight. Endorses fatigue,. Denies night sweats. Feels legs are still swollen more than baseline. Voices no additional questio ns/concerns at time of visit Review of Systems Review of Systems: Constitutional: Denies fever, chills, Endorses fatigue Eyes: Denies vision change ENT: Denies ear pain, sore throat, sinus pain Cardiovascular: Denies Chest pain, chest pressure, palpitations, extremity swelling Respiratory: Denies shortness of breath, cough, sputum production, difficulty breathing Gastrointestinal: Denies abdominal pain, nausea, vomiting, constipation, diarrhea Genitourinary: Denies dysuria, Endorses urinary frequency with IV Lasix Musculoskeletal: See subjective Integumentary:See subjective Neurological: Denies headache, numbness, tingling, focal weakness Physical Exam Physical Exam: General: A&Ox3. NAD. Cooperative. HEENT: Atraumatic, normocephalic. Pulm: CTAB A&P. -wheezes, -rales, -rhonchi. Symmetrical chest rise. No increase work of breathing. No respiratory distress. Cardiac: RRR, -mrg. Radial pulses intact and symmetrical. Abdominal: Nontender, nondistended, soft. BS present. Extremities: Bilateral pitting edema of the lower extremities to the knee, mild erythema bilaterally, nontender, minimal warmth. Significant palpable and ankle edema. Trace weeping fluid from left lower extremity. Sensation to soft touch intact in feet bilaterally, ankle dorsiflexion/plantar flexion intact bilaterally. Results & Data Results & Data ([facility]) Vital Signs (Past 12 Hours) Vital Signs Temp Pulse Pulse Resp BP Pulse Ox 09/05/21 12:07 36.8 C 99 H 18 139/97 93 09/05/21 08:07 37.1 C 103 H 22 128/88 93 09/05/21 07:00 101 H PG Care Time/CCT Total # of Minutes Spent Total Time Spent with Patient: Total time spent is greater than 50% in coordination of care (as documented) at patient's floor/unit and/or counseling patient: Coding Level of Care Code 51704 Subseq Hosp Care Lvl 2 Diagnoses Cellulitis L03.116 Laterality: left Site of cellulitis: extremity Site of cellulitis of extremity: lower extremity Peripheral edema R60.9 Acute encephalopathy G93.40 Hx of brain cancer Z85.841 Generalized epilepsy G40.309 Benign hypertension I10 Chronic anticoagulation Z79.01 Hemiparesis of left nondominant side G81.94 Hemiparesis etiology: unspecified Dyslipidemia E78.5 AVANI (obstructive sleep apnea) G47.33 Memory impairment R41.3 (1) Cellulitis Laterality: left Site of cellulitis: extremity Site of cellulitis of extremity: lower extremity Qualified Code(s): L03.116 - Cellulitis of left lower limb (2) Hemiparesis of left nondominant side Hemiparesis etiology: unspecified Qualified Code(s): G81.94 - Hemiplegia, unspecified affecting left nondominant side
[2021-09-05] MEDS: cefTRIAXone SODIUM 2,000 MG in DEXTROSE 5% 50 ML IV SCH (15:06)
[2021-09-05] MEDS: ONDANSETRON INJ 2 MG/ML 2 ML VIAL IV PRN (15:14)
[2021-09-05] MEDS: WARFARIN SOD 5 MG TAB PO SCH (15:16)
--- NOTE | 2021-09-05 16:00 | XRay Report ---
XR chest 1V portable HISTORY: 65 years-old Male cough, sputum production acute cough COMPARISON: Chest radiograph 09/02/2021 TECHNIQUE: Portable AP view of the chest FINDINGS: Cardiac silhouette is enlarged. Unchanged mild right hemidiaphragmatic elevation. Hypoinflation.. Min imal left lung base opacities. Bones appear grossly intact. IMPRESSION: Hypoinflation with mild left lung base opacities suggestive of atelectasis. Pneumonitis c onsidered less likely. ACT 112: Negative or not required by law. The above report was generated using voice recognition software. It may contain grammatical, syntax o r spelling errors. Electronically signed by: Christopher Martinez M.D. 09/05/2021 3:58 PM
[2021-09-06] MEDS: oxyCODONE HCL IR 5 MG TAB (IMMEDIATE RELEASE) PO PRN ×2 (02:08→20:51)
[2021-09-06 07:32] LABS: Basophils # (auto) 0.01 K/uL (0-0.2); Basophils % (auto) 0.1 %; Eosinophils # (auto) 0.08 K/uL (0-0.5); Eosinophils % (auto) 0.7 %; Hemoglobin 14.3 g/dL (14.0-18.0); Immature Granulocytes # (auto) 0.02 K/uL (0.00-0.02); Immature Granulocytes % (auto) 0.2 %; Lymphocytes # (auto) 1.39 K/uL (1.2-3.4); Mean Corpuscular Hemoglobin 32.8 pg (25-34); Mean Corpuscular Hgb Conc 32.5 g/dL (32-36); Mean Corpuscular Volume 100.9 fL (80-100); Mean Platelet Volume 9.3 fL (7.4-10.4); Monocytes % (auto) 1.9 %; Neutrophils % (auto) 84.1 %; Platelet Count 223 K/uL (130-400); RDW Coefficient of Variation 13.8 % (11.5-14.5); RDW Standard Deviation 51.7 fL (36.4-46.3); Red Blood Count 4.36 M/uL (4.7-6.1)
[2021-09-06 08:02] LABS: BUN Creatinine Ratio 19.4 (10-20); Calcium 9.1 mg/dl (8.5-10.1); Creatinine Clr Calc Pharmacy 101.3 ml/min; Est GFR (African American) 92.9 ml/min; Est GFR (Non-African American) 80.2 ml/min
--- NOTE | 2021-09-06 08:19 | Hospitalist Progress Note ---
Date of Service September 06, 2021 Assessment & Plan (1) Cellulitis: Plan: #Bilateral lower extremities Cellulitis left greater than right, secondary to severe lower extremity peripheral edema causing cracks in the skin and weeping No leukocytosis, no fevers. Failed outpatient therapy prior to admission -Blood cultures with no growth to date Periportal erythema has gradually improved -CRP this afternoon 7.7 -crp scheduled for tomorrow am -Patient was placed on Augmentin in the outpatient world and after 2 days deemed to have failed therapy. -Based on his cultures, and response to ceftriaxone in the hospital it is unclear if this represents a true treatment failure. Daptomycin discontinued, Zosyn narrowed to Rocephin day 4 IV abx -Plan to transition to p.o. doxycycline tomorrow Continue elevation/compression Wound care consulted #Peripheral edema With severe lower extremity edema much worse the thinks over the last few months, but he has always had larger legs - Review of his chart shows that he has gained 21 kg in the last 7 months of body weight - Echocardiogram from 07/2020 shows elevated right ventricular systolic pressures, preserved LV EF 55-60%, Suspect pulmonary hypertension causing peripheral edema - No proteinuria, serum albumin not severely decreased Suspect 2/2 diastolic failure Suspect failure of oral Lasix due to edema Patient diuresing adequately with IV Lasix Patient remains clinically volume overloaded, recommend continued IV diuresis at this time Continue Lasix 40 mg IV twice daily, creatinine tolerating Will transition to p.o. Bumex this evening 2 mg bid Low-sodium diet BMP daily #acute encephalopathy History of recurrent meningitis No signs of meningitis at time of admission Somewhat somnolent, but arouses easily and answers questions appropriately during exam Follow clinically #History of brain cancer Status post 2 resections of brain tumor, with residual left-sided hemiparesis after second surgery #Generalized epilepsy -Continue home lamotrigine, phenytoin -Dilantin level mildly low here #Hypertension -Blood pressures are elevated possibly secondary to pain and volume overload #Chronic anticoagulation On Coumadin chronically for history of DVT -Continue home warfarin -PT/INR, target 23 #Hemiparesis of left nondominant side As above continue Supportive care -PT/OT consults placed #dyslipidemia Atorvastatin held while on dapto. restart 09/07 #AVANI Does not tolerate CPAP #Memory impairment Noted Supportive care FENa:low Na Code Status:DNR DVT PPX:DVT prophylaxis-Coumadin PT/OT:consulted Case Management:consulted Dispo:med/surg Sb Russ MD PGY 3, FCM This chart was completed utilizing [employer] voice recognition software. Grammatical errors, random word insertions, pronoun errors, and in complete sentences are an occasional consequence of the system. Any questions or concerns about the content, text, or information contained within the body of this dictation should be addressed directly to the physician for clarification. (2) Peripheral edema: (3) Acute encephalopathy: (4) Hx of brain cancer: (5) Generalized epilepsy: (6) Benign hypertension: (7) Chronic anticoagulation: (8) Hemiparesis of left nondominant side: (9) Dyslipidemia: (10) AVANI (obstructive sleep apnea): (11) Memory impairment: Admission and Anticipated Discharge Date Admission Date: September 02, 2021 Supervising Physician Co-Signing Physician Notes Patient seen and examined, chart reviewed, case discussed with Dr. Russ and I agree with the assessment and plan as above except as otherwise noted 65-year-old male who presented with bilateral lower extremity edema and cellulitis reportedly failing outpatient therapy, although of note received less than 48 hours of treatment with Augmentin. He has had rapid clinical improvement on Dapto/Zosyn and was narrowed to Rocephin. CRP evening/repeat pending. If worsening then extended to include MRSA coverage doxy versus Bactrim,, if continuing to improve consider conversion to oral cephalosporin for completion of therapy. He has severe lower extremity edema improving with Lasix but with additional evidence of venous stasis. Home Lasix likely with reduced effect due to gut edema, responding well to Lasix IV twice daily. Will convert to Bumex and continue diuresis. Patient with history of AVANI intolerant to CPAP, encouraged to revisit mask fitting of various devices as this is likely contributing to his elevated right ventricular systolic pressure and peripheral edema. At bedside visit patient is fatigued, but arouses easily and is redirectable in conversation. Erythema of legs bilaterally greatly improved, nontender to palpation, without warmth today. Lungs with trace basilar crackles which clear with deep breath and which are without rales or rhonchi. Add gentle compression/SCDs to help mobilize lower extremity fluid. Subjective Patient lying in bed this morning no acute distress reports doing well overnight. Per nursing he has been tolerating diet, moving his bowels, Velasquez in place and making urine, sleeping overnight. Patient denies any significant pain except some intermittent cramping in his legs particularly his thighs. He states there is no pain in his lower extremities he denies any fevers or chills nausea or vomiting. Physical Exam Physical Exam: General: No acute distress HEENT: Normocephalic atraumatic Neck: Normal to visual inspection Cardiac: Regular rate and rhythm I did not appreciate significant murmurs rubs or gallops, normal S1, normal S2, 4+ bilateral pedal edema, negative calf tenderness Respiratory: Clear to auscultation bilaterally with symmetrical chest expansion I did not appreciate significant wheezes, rales, rhonchi GI: Soft, nontender, distended abdomen MSK: Moves all extremities Psych: Calm and cooperative with the interview Skin: Bilateral lower extremities, erythema is significantly improved, still edematous, still residual signs of infection, still warm to the touch, no pain Results & Data Results & Data ([facility]) Vital Signs (Past 12 Hours) Vital Signs Temp Pulse Pulse Resp BP BP Pulse Ox 09/06/21 07:00 92 H 09/06/21 03:58 37.2 C 118 H 24 181/116 H 95 09/06/21 00:18 37.3 C 104 H 22 160/103 H 96 09/05/21 23:59 108 H Laboratory Results 09/06/21 09/06/21 09/06/21 Range/Units 13:03 07:14 07:14 WBC 10.70 (4.8-10.8) K/uL RBC 4.36 L (4.7-6.1) M/uL Hgb 14.3 (14.0-18.0) g/dL Hct 44.0 (42-52) % MCV 100.9 H (80-100) fL MCH 32.8 (25-34) pg MCHC 32.5 (32-36) g/dL RDW Std Deviation 51.7 H (36.4-46.3) fL RDW Coeff of Paul 13.8 (11.5-14.5) % Plt Count 223 (130-400) K/uL MPV 9.3 (7.4-10.4) fL Immature Gran % (Auto) 0.2 % Neut % (Auto) 84.1 % Lymph % (Auto) 13.0 % Mason % (Auto) 1.9 % Eos % (Auto) 0.7 % Baso % (Auto) 0.1 % Neut # (Auto) 9.00 H (1.4-6.5) K/uL Lymph # (Auto) 1.39 (1.2-3.4) K/uL Mason # (Auto) 0.20 (0.11-0.59) K/uL Eos # (Auto) 0.08 (0-0.5) K/uL Baso # (Auto) 0.01 (0-0.2) K/uL Immature Gran # (Auto) 0.02 (0.00-0.02) K/uL Sodium 137 (136-145) mmol/L Potassium 4.0 (3.5-5.1) mmol/L Chloride 100 (98-107) mmol/L Carbon Dioxide 30 (21-32) mmol/L Anion Gap 6.0 (3-11) BUN 19 H (7-18) mg/dl Creatinine 0.99 (0.6-1.4) mg/dl Est Cr Clr Drug Dosing 101.3 ml/min Est GFR ( Amer) 92.9 ml/min Est GFR (Non-Af Amer) 80.2 ml/min BUN/Creatinine Ratio 19.4 (10-20) Glucose 110 H (70-99) mg/dl Calcium 9.1 (8.5-10.1) mg/dl C-Reactive Protein 7.77 H (0-0.29) mg/dl Medications Administered Current Inpatient Medications Acetaminophen (Acetaminophen 500 Mg Tab) 1,000 mg PO Q8H [facility] Stop: 10/06/21 10:29 Last Admin: 09/06/21 14:25 Dose: 1,000 mg Documented by: Bisacodyl (Bisacodyl 5 Mg Tabec) 5 mg PO DAILY PRN PRN Reason: Constipation Stop: 10/05/21 15:23 Last Admin: 09/06/21 08:46 Dose: 5 mg Documented by: Furosemide (Furosemide 40 Mg/4 Ml Vial) 40 mg IV BID17 [facility] Stop: 10/03/21 08:59 Last Admin: 09/06/21 09:12 Dose: 40 mg Documented by: Ceftriaxone Sodium 2,000 mg/ (Dextrose) 70 mls @ 100 mls/hr IV Q24H [facility]; Protocol Stop: 09/12/21 14:59 Last Infusion: 09/05/21 16:10 Dose: Infused Documented by: Lamotrigine (Lamotrigine 25 Mg Tab) 50 mg PO BID [facility] Stop: 10/02/21 22:07 Last Admin: 09/06/21 08:45 Dose: 50 mg Documented by: Lamotrigine (Lamotrigine 100 Mg Tab) 200 mg PO BID [facility] Stop: 10/02/21 22:07 Last Admin: 09/06/21 08:47 Dose: 200 mg Documented by: Lorazepam (Lorazepam 1 Mg Tab) 1 mg PO DAILY PRN PRN Reason: Seizures Stop: 10/02/21 23:24 Miconazole Nitrate (Miconazole Nitrate Powder 43 Gm) 1 appln EXT PRN PRN PRN Reason: Affected Skin Folds Stop: 10/05/21 18:45 Morphine Sulfate (Morphine Sulfate 2 Mg/Ml Carp) 2 mg IV Q4 PRN PRN Reason: Pain-severe Stop: 09/16/21 22:07 Last Admin: 09/06/21 09:13 Dose: 2 mg Documented by: Ondansetron HCl (Ondansetron Inj 2 Mg/Ml 2 Ml Vial) 4 mg IV Q6H PRN PRN Reason: Nausea Stop: 10/02/21 22:07 Last Admin: 09/05/21 15:14 Dose: 4 mg Documented by: Oxycodone HCl (Oxycodone Hcl Ir 5 Mg Tab (Immediate Release)) 5 mg PO Q8H PRN PRN Reason: pain Stop: 09/16/21 22:07 Last Admin: 09/06/21 02:08 Dose: 5 mg Documented by: Phenytoin Sodium (Phenytoin Sodium Er 100 Mg Cap) 200 mg PO BID [facility] Stop: 10/02/21 22:07 Last Admin: 09/06/21 08:45 Dose: 200 mg Documented by: Polyethylene Glycol (Polyethylene (Miralax) 17 Gm Pack) 17 gm PO BID [facility] Stop: 10/06/21 10:29 Last Admin: 09/06/21 13:58 Dose: 17 gm Documented by: Warfarin Sodium (Warfarin Sod 5 Mg Tab) 5 mg PO [id number]@1600 [facility] Stop: 10/04/21 15:59 Last Admin: 09/05/21 15:16 Dose: 5 mg Documented by: Warfarin Sodium (Warfarin Sod 2.5 Mg Tab) 2.5 mg PO MoFr@1600 [facility] Stop: 10/03/21 15:59 Last Admin: 09/03/21 17:03 Dose: 2.5 mg Documented by: (1) Cellulitis Laterality: left Site of cellulitis: extremity Site of cellulitis of extremity: lower extremity Qualified Code(s): L03.116 - Cellulitis of left lower limb (2) Hemiparesis of left nondominant side Hemiparesis etiology: unspecified Qualified Code(s): G81.94 - Hemiplegia, unspecified affecting left nondominant side
[2021-09-06] MEDS: PHENYTOIN SODIUM ER 100 MG CAP PO SCH ×2 (08:45→20:53)
[2021-09-06] MEDS: lamoTRIgine 25 MG TAB PO SCH ×2 (08:45→20:54)
[2021-09-06] MEDS: bisacodyL 5 MG TABEC PO PRN (08:46)
[2021-09-06] MEDS: lamoTRIgine 100 MG TAB PO SCH ×2 (08:47→20:53)
[2021-09-06] MEDS: FUROSEMIDE 40 MG/4 ML VIAL IV SCH (09:12)
[2021-09-06] MEDS: MoRPHine SULFATE 2 MG/ML CARP IV PRN ×2 (09:13→22:44)
[2021-09-06] MEDS: POLYETHYLENE (MIRALAX) 17 GM PACK PO SCH ×2 (13:58→20:54)
[2021-09-06] MEDS: ACETAMINOPHEN 500 MG TAB PO SCH ×2 (14:25→18:36)
[2021-09-06] MEDS: cefTRIAXone SODIUM 2,000 MG in DEXTROSE 5% 50 ML IV SCH (15:56)
[2021-09-06] MEDS: WARFARIN SOD 2.5 MG TAB PO SCH (15:57)
[2021-09-06] MEDS: MICONAZOLE NITRATE POWDER 43 GM EXT PRN (15:58)
[2021-09-06] MEDS: BUMETANIDE 1 MG TAB PO SCH (20:54)
[2021-09-07] MEDS: ACETAMINOPHEN 500 MG TAB PO SCH ×3 (02:42→18:12)
[2021-09-07] MEDS: MICONAZOLE NITRATE POWDER 43 GM EXT PRN (05:24)
[2021-09-07] MEDS: BUMETANIDE 1 MG TAB PO SCH ×2 (07:48→21:56)
[2021-09-07] MEDS: lamoTRIgine 25 MG TAB PO SCH ×2 (07:49→21:56)
[2021-09-07] MEDS: DOXYCYCLINE HYCLATE 100 MG CAP PO SCH ×2 (07:49→21:56)
[2021-09-07] MEDS: POLYETHYLENE (MIRALAX) 17 GM PACK PO SCH ×2 (07:49→21:40)
[2021-09-07] MEDS: PHENYTOIN SODIUM ER 100 MG CAP PO SCH ×2 (07:49→21:57)
[2021-09-07] MEDS: lamoTRIgine 100 MG TAB PO SCH ×2 (07:49→21:56)
[2021-09-07] MEDS: oxyCODONE HCL IR 5 MG TAB (IMMEDIATE RELEASE) PO PRN ×2 (07:51→23:59)
[2021-09-07 07:53] LABS: Basophils # (auto) 0.03 K/uL (0-0.2); Basophils % (auto) 0.3 %; Eosinophils # (auto) 0.34 K/uL (0-0.5); Eosinophils % (auto) 3.7 %; Hematocrit (blood only) 45.3 % (42-52); Hemoglobin 15.1 g/dL (14.0-18.0); Immature Granulocytes # (auto) 0.03 K/uL (0.00-0.02); Immature Granulocytes % (auto) 0.3 %; Lymphocytes # (auto) 0.92 K/uL (1.2-3.4); Lymphocytes % (auto) 10.1 %; Mean Corpuscular Hemoglobin 33.3 pg (25-34); Mean Corpuscular Hgb Conc 33.3 g/dL (32-36); Mean Corpuscular Volume 99.8 fL (80-100); Mean Platelet Volume 9.7 fL (7.4-10.4); Monocytes # (auto) 0.82 K/uL (0.11-0.59); Neutrophils # (auto) 6.99 K/uL (1.4-6.5); Neutrophils % (auto) 76.6 %; Platelet Count 185 K/uL (130-400); Polychromasia 1+; RDW Coefficient of Variation 13.9 % (11.5-14.5); RDW Standard Deviation 50.7 fL (36.4-46.3); Red Blood Count 4.54 M/uL (4.7-6.1); White Blood Count 9.13 K/uL (4.8-10.8)
[2021-09-07 08:04] LABS: INR 4.2 (0.9-1.1); Prothrombin Time 37.9 Seconds (9.0-12.0)
--- NOTE | 2021-09-07 08:29 | Hospitalist Progress Note ---
Date of Service September 07, 2021 Assessment & Plan (1) Cellulitis: Plan: #Bilateral lower extremities Cellulitis left greater than right, secondary to severe lower extremity peripheral edema causing cracks in the skin and weeping Patient was placed on Augmentin in the outpatient world and after 2 days deemed to have failed therapy. Based on his cultures, and response to ceftriaxone in the hospital it is unclear if this represents a true treatment failure. Initially when hospitalized he was placed on daptomycin and tx to Zosyn narrowed to Rocephin for total of 5 days of intravenous antibiotic therapy. He was converted to doxycycline p.o. on 421 No leukocytosis, no fevers. Failed outpatient therapy prior to admission -Blood cultures with no growth to date Periportal erythema has gradually improved -CRP:7.7->9.32 -Continue doxycycline 100 mg twice daily day 1/5 Continue elevation/compression Wound care consulted #Peripheral edema With severe lower extremity edema much worse the thinks over the last few months, but he has always had larger legs Review of his chart shows that he has gained 21 kg in the last 7 months of body weight. Echocardiogram from 07/2020 shows elevated right ventricular systolic pressures, preserved LV EF 55-60%, Suspect pulmonary hypertension causing peripheral edema. No proteinuria, serum albumin not severely decreased Suspect 2/2 diastolic failure Suspect failure of oral Lasix due to edema Patient diuresing adequately with IV Lasix Patient remains clinically volume overloaded, recommend continued IV diuresis at this time Continue Lasix 40 mg IV twice daily, creatinine tolerating -Transition to 2 mg p.o. Bumex twice daily -Tolerating well, pt put out a little over a liter -monitor Cr Low-sodium diet BMP daily #Lower Extremity MSK pain Patient endorsing cramping sensation in his bilateral lower extremities. Describing as a muscular pain. He has previously been assessed for DVT which was negative, there is no signs or symptoms of extension of his cellulitis. Suspect his pain is largely related to lack of mobility, underlying neurological disorder, and muscle spasm related. Strongly encouraged the patient to participate in PT provided with a muscle relaxer with significant improvement today. Recommend topical NSAIDs as needed and for severe exacerbation can consider muscle relaxer #acute encephalopathy History of recurrent meningitis,No signs of meningitis at time of admi ssion.Somewhat somnolent, but arouses easily and answers questions appropriately during exam Follow clinically #History of brain cancer Status post 2 resections of brain tumor, with residual left-sided hemiparesis after second surgery #Generalized epilepsy -Continue home lamotrigine, phenytoin -Dilantin level mildly low here #Hypertension -Blood pressures are elevated possibly secondary to pain and volume overload #Chronic anticoagulation On Coumadin chronically for history of DVT -Continue home warfarin -PT/INR, target 23 -INR supratherapeutic today at 4.2 will hold warfarin today, plan to resume pending INR tomorrow -Temporary dose reduction of 2.5 mg while on antibiotics #Hemiparesis of left nondominant side As above continue Supportive care -PT/OT consults placed #dyslipidemia Atorvastatin held while on dapto. restart 09/07 #AVANI Does not tolerate CPAP #Memory impairment Noted Supportive care FENa:low Na Code Status:DNR DVT PPX:DVT prophylaxis-Coumadin PT/OT:consulted Case Management:consulted Dispo: Pending placement at [facility] Sb Russ MD PGY 3, FCM This chart was completed utilizing [employer] voice recognition software. Grammatical errors, random word insertions, pronoun errors, and in complete sentences are an occasional consequence of the system. Any questions or concerns about the content, text, or information contained within the body of this dictation should be addressed directly to the physician for clarification. (2) Peripheral edema: (3) Acute encephalopathy: (4) Hx of brain cancer: (5) Generalized epilepsy: (6) Benign hypertension: (7) Chronic anticoagulation: (8) Hemiparesis of left nondominant side: (9) Dyslipidemia: (10) AVANI (obstructive sleep apnea): (11) Memory impairment: Admission and Anticipated Discharge Date Admission Date: September 02, 2021 Supervising Physician Co-Signing Physician Notes 65-year-old male who presented with bilateral lower extremity edema and cellulitis reportedly failing outpatient therapy, although of note received less than 48 hours of treatment with Augmentin. He has had rapid clinical improvement on Dapto/Zosyn and was narrowed to Rocephinquestion whether his initial failure was actual treatment failure or duration related, clinical cour se did not continue to improve so was converted back to MRSA coverage on doxy and has since clinically improved. Patient has had some pain in his left distal thigh and knee which she has felt is worsened with movement to the chair. He reports that this was not present at last Thanksgiving, and he thinks started at some point during admission over the last several days he has been on warfarin therapy which is therapeutic, and has had a negative Doppler on 09/04, low suspicion for DVT. On exam he has distal quad and hamstring function, and some muscle spasm. Muscle energy technique performed with isometric resistance followed by relaxation and stretching repeatedly over several minutes, following this patient is able to extend leg fully and contract leg fully with minimal/improved pain. Suspect MSK related, may continue OMT techniques and topical NSAID therapy at this time. Exam does not appear consistent with extension of cellulitis into the joint. Recommend continued use, PT/OT, flaring gel. Otherwise patient is progressing well. INR supratherapeutic today, 4.0 in the setting of antibiotic use, 1 dose of warfarin held and resume once less than 3 with temporary dose reduction to 2.5 mg daily while on antibiotics and follow- up INR checks. Continue wound care, continue mobilization and up to chair as tolerated, placement pending. Subjective Patient lying in bed this morning no acute distress. He endorses significant lower extremity pain from overnight. He states his pain is located in his thighs. He describes it as a muscle cramp he has no associated constitutional symptoms including fevers or chills, nausea or vomiting, chest pressure or chest pain. He states he has been moving his bowels, voiding, tolerating his diet. After discussion with his yesterday evening he is agreeable to rehab at [facility]. Physical Exam Physical Exam: General: No acute distress HEENT: Normocephalic atraumatic Neck: Normal to visual inspection Cardiac: Regular rate and rhythm I did not appreciate significant murmurs rubs or gallops, normal S1, normal S2, 4+ bilateral pedal edema, negative calf tenderness Respiratory: Clear to auscultation bilaterally with symmetrical chest expansion I did not appreciate significant wheezes, rales, rhonchi GI: Soft, nontender, distended abdomen MSK: Moves all extremities, tenderness to palpation over his bilateral quadriceps, feels as if there is a muscle spasm. Psych: Calm and cooperative with the interview Skin: Bilateral lower extremities, erythema is significantly improved, still edematous, still residual signs of infection, still warm to the touch, no pain Results & Data Results & [facility] ([facility]) Vital Signs (Past 12 Hours) Vital Signs Temp Pulse Pulse Resp BP BP Pulse Ox 09/07/21 07:23 36.6 C 90 16 171/90 H 93 09/07/21 04:15 80 09/07/21 02:59 36.7 C 85 20 130/84 95 09/06/21 22:35 36.8 C 83 20 124/85 96 Laboratory Results 09/07/21 09/07/21 09/07/21 Range/Units 06:46 06:46 06:46 WBC 9.13 (4.8-10.8) K/uL RBC 4.54 L (4.7-6.1) M/uL Hgb 15.1 (14.0-18.0) g/dL Hct 45.3 (42-52) % MCV 99.8 (80-100) fL MCH 33.3 (25-34) pg MCHC 33.3 (32-36) g/dL RDW Std Deviation 50.7 H (36.4-46.3) fL RDW Coeff of Paul 13.9 (11.5-14.5) % Plt Count 185 (130-400) K/uL MPV 9.7 (7.4-10.4) fL Immature Gran % (Auto) 0.3 % Neut % (Auto) 76.6 % Lymph % (Auto) 10.1 % Wilson % (Auto) 9.0 % Eos % (Auto) 3.7 % Baso % (Auto) 0.3 % Neut # (Auto) 6.99 H (1.4-6.5) K/uL Lymph # (Auto) 0.92 L (1.2-3.4) K/uL Wilson # (Auto) 0.82 H (0.11-0.59) K/uL Eos # (Auto) 0.34 (0-0.5) K/uL Baso # (Auto) 0.03 (0-0.2) K/uL Immature Gran # (Auto) 0.03 H (0.00-0.02) K/uL Polychromasia 1+ PT 37.9 H (9.0-12.0) Seconds INR 4.2 H (0.9-1.1) Sodium Pending Potassium Pending Chloride Pending Carbon Dioxide Pending Anion Gap Pending BUN Pending Creatinine Pending Est Cr Clr Drug Dosing Pending Est GFR ( Amer) Pending Est GFR (Non-Af Amer) Pending BUN/Creatinine Ratio Pending Glucose Pending Calcium Pending C-Reactive Protein Pending (0-0.29) mg/dl 09/06/21 Range/Units 13:03 WBC (4.8-10.8) K/uL RBC (4.7-6.1) M/uL Hgb (14.0-18.0) g/dL Hct (42-52) % MCV (80-100) fL MCH (25-34) pg MCHC (32-36) g/dL RDW Std Deviation (36.4-46.3) fL RDW Coeff of Paul (11.5-14.5) % Plt Count (130-400) K/uL MPV (7.4-10.4) fL Immature Gran % (Auto) % Neut % (Auto) % Lymph % (Auto) % Wilson % (Auto) % Eos % (Auto) % Baso % (Auto) % Neut # (Auto) (1.4-6.5) K/uL Lymph # (Auto) (1.2-3.4) K/uL Wilson # (Auto) (0.11-0.59) K/uL Eos # (Auto) (0-0.5) K/uL Baso # (Auto) (0-0.2) K/uL Immature Gran # (Auto) (0.00-0.02) K/uL Polychromasia PT (9.0-12.0) Seconds INR (0.9-1.1) Sodium Potassium Chloride Carbon Dioxide Anion Gap BUN Creatinine Est Cr Clr Drug Dosing Est GFR ( Amer) Est GFR (Non-Af Amer) BUN/Creatinine Ratio Glucose Calcium C-Reactive Protein 7.77 H (0-0.29) mg/dl Medications Administered Current Inpatient Medications Acetaminophen (Acetaminophen 500 Mg Tab) 1,000 mg PO Q8H [facility] Stop: 10/06/21 10:29 Last Admin: 09/07/21 02:42 Dose: 1,000 mg Documented by: Bisacodyl (Bisacodyl 5 Mg Tabec) 5 mg PO DAILY PRN PRN Reason: Constipation Stop: 10/05/21 15:23 Last Admin: 09/06/21 08:46 Dose: 5 mg Documented by: Bumetanide (Bumetanide 1 Mg Tab) 2 mg PO BID [facility] Stop: 10/06/21 20:59 Last Admin: 09/07/21 07:48 Dose: 2 mg Documented by: Doxycycline Hyclate (Doxycycline Hyclate 100 Mg Cap) 100 mg PO BID [facility] Stop: 09/14/21 08:59 Last Admin: 09/07/21 07:49 Dose: 100 mg Documented by: Ceftriaxone Sodium 2,000 mg/ (Dextrose) 70 mls @ 100 mls/hr IV Q24H [facility]; Protocol Stop: 09/12/21 14:59 Last Infusion: 09/06/21 17:02 Dose: Infused Documented by: Lamotrigine (Lamotrigine 25 Mg Tab) 50 mg PO BID [facility] Stop: 10/02/21 22:07 Last Admin: 09/07/21 07:49 Dose: 50 mg Documented by: Lamotrigine (Lamotrigine 100 Mg Tab) 200 mg PO BID [facility] Stop: 10/02/21 22:07 Last Admin: 09/07/21 07:49 Dose: 200 mg Documented by: Lorazepam (Lorazepam 1 Mg Tab) 1 mg PO DAILY PRN PRN Reason: Seizures Stop: 10/02/21 23:24 Miconazole Nitrate (Miconazole Nitrate Powder 43 Gm) 1 appln EXT PRN PRN PRN Reason: Affected Skin Folds Stop: 10/05/21 18:45 Last Admin: 09/07/21 05:24 Dose: 1 appln Documented by: Morphine Sulfate (Morphine Sulfate 2 Mg/Ml Carp) 2 mg IV Q4 PRN PRN Reason: Pain-severe Stop: 09/16/21 22:07 Last Admin: 09/06/21 22:44 Dose: 2 mg Documented by: Ondansetron HCl (Ondansetron Inj 2 Mg/Ml 2 Ml Vial) 4 mg IV Q6H PRN PRN Reason: Nausea Stop: 10/02/21 22:07 Last Admin: 09/05/21 15:14 Dose: 4 mg Documented by: Oxycodone HCl (Oxycodone Hcl Ir 5 Mg Tab (Immediate Release)) 5 mg PO Q8H PRN PRN Reason: pain Stop: 09/16/21 22:07 Last Admin: 09/07/21 07:51 Dose: 5 mg Documented by: Phenytoin Sodium (Phenytoin Sodium Er 100 Mg Cap) 200 mg PO BID [facility] Stop: 10/02/21 22:07 Last Admin: 09/07/21 07:49 Dose: 200 mg Documented by: Polyethylene Glycol (Polyethylene (Miralax) 17 Gm Pack) 17 gm PO BID [facility] Stop: 10/06/21 10:29 Last Admin: 09/07/21 07:49 Dose: Not Given Documented by: Warfarin Sodium (Warfarin Sod 5 Mg Tab) 5 mg PO [id number]@1600 [facility] Stop: 10/04/21 15:59 Last Admin: 09/05/21 15:16 Dose: 5 mg Documented by: Warfarin Sodium (Warfarin Sod 2.5 Mg Tab) 2.5 mg PO MoFr@1600 [facility] Stop: 10/03/21 15:59 Last Admin: 09/06/21 15:57 Dose: 2.5 mg Documented by: (1) Cellulitis Laterality: left Site of cellulitis: extremity Site of cellulitis of extremity: lower extremity Qualified Code(s): L03.116 - Cellulitis of left lower limb (2) Hemiparesis of left nondominant side Hemiparesis etiology: unspecified Qualified Code(s): G81.94 - Hemiplegia, unspecified affecting left nondominant side
[2021-09-07 09:52] LABS: BUN Creatinine Ratio 18.2 (10-20); C Reactive Protein 9.32 mg/dl (0-0.29); Calcium 9.3 mg/dl (8.5-10.1); Creatinine Clr Calc Pharmacy 89.3 ml/min; Est GFR (African American) 92.9 ml/min; Est GFR (Non-African American) 80.2 ml/min; Potassium 4.1 mmol/L (3.5-5.1)
[2021-09-07] MEDS ORDERED: CYCLOBENZAPRINE HCL 10 MG TAB PO STA (11:59)
[2021-09-07] MEDS: DICLOFENAC SOD 1% GEL 100 GM TUBE EXT SCH ×3 (13:29→21:56)
[2021-09-07] MEDS: MoRPHine SULFATE 2 MG/ML CARP IV PRN (15:19)
--- NOTE | 2021-09-07 16:45 | Billing Data ---
Date of Service September 07, 2021 Coding Level of Care Code 89410 Subseq Hosp Care Lvl 2
--- NOTE | 2021-09-07 16:45 | Billing Data ---
Date of Service September 06, 2021 Coding Level of Care Code 50283 Subseq Hosp Care Lvl 2
[2021-09-08] MEDS: MoRPHine SULFATE 2 MG/ML CARP IV PRN (01:52)
[2021-09-08] MEDS: ACETAMINOPHEN 500 MG TAB PO SCH ×3 (02:07→18:45)
[2021-09-08] MEDS: tiZANidine HCL 4 MG TABLET PO SCH ×2 (08:32→21:22)
[2021-09-08] MEDS: POLYETHYLENE (MIRALAX) 17 GM PACK PO SCH ×2 (08:34→21:26)
[2021-09-08] MEDS: PHENYTOIN SODIUM ER 100 MG CAP PO SCH ×2 (09:23→21:22)
[2021-09-08] MEDS: oxyCODONE HCL IR 5 MG TAB (IMMEDIATE RELEASE) PO PRN ×2 (09:23→23:20)
[2021-09-08] MEDS: lamoTRIgine 25 MG TAB PO SCH ×2 (09:24→21:22)
[2021-09-08] MEDS: DICLOFENAC SOD 1% GEL 100 GM TUBE EXT SCH ×4 (09:24→21:34)
[2021-09-08] MEDS: BUMETANIDE 1 MG TAB PO SCH ×2 (09:24→21:21)
[2021-09-08] MEDS: DOXYCYCLINE HYCLATE 100 MG CAP PO SCH ×2 (09:24→21:22)
[2021-09-08] MEDS: lamoTRIgine 100 MG TAB PO SCH ×2 (09:24→21:22)
--- NOTE | 2021-09-08 10:57 | Hospitalist Progress Note ---
Date of Service September 08, 2021 Assessment & Plan (1) Cellulitis: Plan: #Bilateral lower extremities Cellulitis left greater than right, secondary to severe lower extremity peripheral edema causing cracks in the skin and weeping Patient was placed on Augmentin in the outpatient world and after 2 days deemed to have failed therapy. Based on his cultures, and response to ceftriaxone in the hospital it is unclear if this represents a true treatment failure. Initially when hospitalized he was placed on daptomycin and tx to Zosyn narrowed to Rocephin for total of 5 days of intravenous antibiotic therapy. He was converted to doxycycline p.o. on 421 No leukocytosis, no fevers. Failed outpatient therapy prior to admission -Blood cultures with no growth to date Periportal erythema has gradually improved -CRP:7.7->9.32->10.02 -Continue doxycycline 100 mg twice daily day 2/5 Continue elevation/compression Wound care consulted #Peripheral edema With severe lower extremity edema much worse the thinks over the last few months, but he has always had larger legs Review of his chart shows that he has gained 21 kg in the last 7 months of body weight. Echocardiogram from 07/2020 shows elevated right ventricular systolic pressures, preserved LV EF 55-60%, Suspect pulmonary hypertension causing peripheral edema. No proteinuria, serum albumin not severely decreased Suspect 2/2 diastolic failure Suspect failure of oral Lasix due to edema Patient was diuresing adequately with IV Lasix -Transitioned to 2 mg p.o. Bumex twice daily on 09/06 -Tolerating well -Cr stable Low-sodium diet BMP daily #Lower Extremity MSK pain Patient endorsing cramping sensation in his bilateral lower extremities. Describing as a muscular pain. He has previously been assessed for DVT which was negative, there is no signs or symptoms of extension of his cellulitis. Suspect his pain is largely related to lack of mobility, underlying neurological disorder, and muscle spasm related. Strongly encouraged the patient to participate in PT provided with a muscle relaxer with significant improvement today. Recommend topical NSAIDs as needed and for severe exacerbation can consider muscle relaxer. -Given symptoms today will initiate twice daily Zanaflex 2 mg #acute encephalopathy History of recurrent meningitis,No signs of meningitis at time of admission.Somewhat somnolent, but arouses easily and answers questions appropriately during exam Follow clinically #History of brain cancer Status post 2 resections of brain tumor, with residual left-sided hemiparesis after second surgery #Generalized epilepsy -Continue home lamotrigine, phenytoin -Dilantin level mildly low here #Hypertension -Blood pressures are elevated possibly secondary to pain and volume overload #Chronic anticoagulation On Coumadin chronically for history of DVT -Continue home warfarin -PT/INR, target 23 -INR theraputic today, 2.7. resume Warfarin 2.5 mg daily #Hemiparesis of left nondominant side As above continue Supportive care -PT/OT consults placed #dyslipidemia Atorvastatin held while on dapto. restarted 09/07 #AVANI Does not tolerate CPAP #Memory impairment Noted Supportive care FENa:low Na Code Status:DNR DVT PPX:DVT prophylaxis-Coumadin PT/OT:consulted Case Management:consulted Dispo: Pending placement at [facility] Sb Russ MD PGY 3, FCM This chart was completed utilizing [employer] voice recognition software. Grammatical errors, random word insertions, pronoun errors, and in complete sentences are an occasional consequence of the system. Any questions or concerns about the content, text, or information contained within the body of this dictation should be addressed directly to the physician for clarification. (2) Peripheral edema: (3) Acute encephalopathy: (4) Hx of brain cancer: (5) Generalized epilepsy: (6) Benign hypertension: (7) Chronic anticoagulation: (8) Hemiparesis of left nondominant side: (9) Dyslipidemia: (10) AVANI (obstructive sleep apnea): (11) Memory impairment: Admission and Anticipated Discharge Date Admission Date: September 02, 2021 Supervising Physician Co-Signing Physician Notes 65-year-old male who presented with bilateral lower extremity edema and cellulitis reportedly failing outpatient therapy, although of note received less than 48 hours of treatment with Augmentin. He has had rapid clinical improvement on Dapto/Zosyn and was narrowed to Rocephinquestion whether his initial failure was actual treatment failure or duration related, clinical cours e did not continue to improve so was converted back to MRSA coverage on doxy and has since clinically improved. Continues to have some discomfort in left distal thigh at rest, but improved from prior. At time of bedside assessment he is able to flex and extend his leg to near full range of motion with minimal pain, and passive extension to full range of motion without pain. Does endorse some stiffness. Continue treatment as above. Continue to engage with PT/OT and movement to chair as tolerated. Minimal erythema of the lower extremity, mild bilateral pitting edema remains present. Sensation to soft touch intact in feet bilaterally, pulse intact and symmetrical, symmetrical chest rise with no increased work of breathing and on room air. Continue current antibiotics, placement pending. INR resumed dose reduced while on antibiotics, therapeutic today. Subjective Patient lying in bed in acute distress this morning due to pain in his bilateral thighs. He states is the same pain he is experienced over the past few days. He is requesting treatment for his pain. Otherwise he has been doing well, tolerating his diet, voiding via mckeon, and stooling, sleeping overnight. Acute concerns relate to placement and resolution of his lower extremity pain. Physical Exam Physical Exam: General: No acute distress HEENT: Normocephalic atraumatic Neck: Normal to visual inspection Cardiac: Regular rate and rhythm I did not appreciate significant murmurs rubs or gallops, normal S1, normal S2, 4+ bilateral pedal edema, negative calf tenderness Respiratory: Clear to auscultation bilaterally with symmetrical chest expansion I did not appreciate significant wheezes, rales, rhonchi GI: Soft, nontender, distended abdomen MSK: Moves all extremities, worsening tenderness to palpation over his bilateral quadriceps, feels as if there is a muscle spasm. Psych: Calm and cooperative with the interview Skin: Bilateral lower extremities, erythema is significantly improved, improving edema, still residual signs of infection, still warm to the touch, no pain Results & Data Results & Data ([facility]) Vital Signs (Past 12 Hours) Vital Signs Temp Pulse Pulse Resp BP Pulse Ox 09/08/21 07:25 36.7 C 78 18 153/86 H 92 09/08/21 07:08 85 09/08/21 05:31 36.7 C 82 20 110/80 94 Laboratory Results 09/08/21 09/08/21 Range/Units 11:06 11:06 PT 25.5 H (9.0-12.0) Seconds INR 2.7 H (0.9-1.1) Sodium 136 (136-145) mmol/L Potassium 3.7 (3.5-5.1) mmol/L Chloride 98 (98-107) mmol/L Carbon Dioxide 32 (21-32) mmol/L Anion Gap 5.0 (3-11) BUN 18 (7-18) mg/dl Creatinine 0.97 (0.6-1.4) mg/dl Est Cr Clr Drug Dosing 88.2 ml/min Est GFR ( Amer) 95.2 ml/min Est GFR (Non-Af Amer) 82.2 ml/min BUN/Creatinine Ratio 18.1 (10-20) Glucose 96 (70-99) mg/dl Calcium 9.6 (8.5-10.1) mg/dl C-Reactive Protein 10.10 H (0-0.29) mg/dl 09/07/21 Range/Units 12:24 Total Creatine Kinase 130 (39-308) U/L Medications Administered Current Inpatient Medications Acetaminophen (Acetaminophen 500 Mg Tab) 1,000 mg PO Q8H [facility] Stop: 10/06/21 10:29 Last Admin: 09/08/21 02:07 Dose: 1,000 mg Documented by: Bisacodyl (Bisacodyl 5 Mg Tabec) 5 mg PO DAILY PRN PRN Reason: Constipation Stop: 10/05/21 15:23 Last Admin: 09/06/21 08:46 Dose: 5 mg Documented by: Bumetanide (Bumetanide 1 Mg Tab) 2 mg PO BID [facility] Stop: 10/06/21 20:59 Last Admin: 09/08/21 09:24 Dose: 2 mg Documented by: Diclofenac Sodium (Diclofenac Sod 1% Gel 100 Gm Tube) 4 gm EXT QID [facility] Stop: 10/07/21 12:59 Last Admin: 09/08/21 09:24 Dose: 4 gm Documented by: Doxycycline Hyclate (Doxycycline Hyclate 100 Mg Cap) 100 mg PO BID [facility] Stop: 09/14/21 08:59 Last Admin: 09/08/21 09:24 Dose: 100 mg Documented by: Lamotrigine (Lamotrigine 25 Mg Tab) 50 mg PO BID [facility] Stop: 10/02/21 22:07 Last Admin: 09/08/21 09:24 Dose: 50 mg Documented by: Lamotrigine (Lamotrigine 100 Mg Tab) 200 mg PO BID [facility] Stop: 10/02/21 22:07 Last Admin: 09/08/21 09:24 Dose: 200 mg Documented by: Lorazepam (Lorazepam 1 Mg Tab) 1 mg PO DAILY PRN PRN Reason: Seizures Stop: 10/02/21 23:24 Miconazole Nitrate (Miconazole Nitrate Powder 43 Gm) 1 appln EXT PRN PRN PRN Reason: Affected Skin Folds Stop: 10/05/21 18:45 Last Admin: 09/07/21 05:24 Dose: 1 appln Documented by: Morphine Sulfate (Morphine Sulfate 2 Mg/Ml Carp) 2 mg IV Q4 PRN PRN Reason: Pain-severe Stop: 09/16/21 22:07 Last Admin: 09/08/21 01:52 Dose: 2 mg Documented by: Ondansetron HCl (Ondansetron Inj 2 Mg/Ml 2 Ml Vial) 4 mg IV Q6H PRN PRN Reason: Nausea Stop: 10/02/21 22:07 Last Admin: 09/05/21 15:14 Dose: 4 mg Documented by: Oxycodone HCl (Oxycodone Hcl Ir 5 Mg Tab (Immediate Release)) 5 mg PO Q8H PRN PRN Reason: pain Stop: 09/16/21 22:07 Last Admin: 09/08/21 09:23 Dose: 5 mg Documented by: Phenytoin Sodium (Phenytoin Sodium Er 100 Mg Cap) 200 mg PO BID [facility] Stop: 10/02/21 22:07 Last Admin: 09/08/21 09:23 Dose: 200 mg Documented by: Polyethylene Glycol (Polyethylene (Miralax) 17 Gm Pack) 17 gm PO BID [facility] Stop: 10/06/21 10:29 Last Admin: 09/08/21 08:34 Dose: Not Given Documented by: Tizanidine HCl (Tizanidine Hcl 4 Mg Tablet) 2 mg PO BID [facility] Stop: 10/08/21 08:59 Last Admin: 09/08/21 08:32 Dose: 2 mg Documented by: Trolamine Salicylate (Trolamine Salicylate 10% Crm 255 Appln/85 Gm Tube) 1 appln EXT QID PRN PRN Reason: muscle cramps Stop: 10/07/21 09:06 Warfarin Sodium (Warfarin Sod 5 Mg Tab) 5 mg PO SuTuWeThSa@1600 [facility] Stop: 10/04/21 15:59 Last Admin: 09/05/21 15:16 Dose: 5 mg Documented by: Warfarin Sodium (Warfarin Sod 2.5 Mg Tab) 2.5 mg PO MoFr@1600 [facility] Stop: 10/03/21 15:59 Last Admin: 09/06/21 15:57 Dose: 2.5 mg Documented by: (1) Cellulitis Laterality: left Site of cellulitis: extremity Site of cellulitis of extremity: lower extremity Qualified Code(s): L03.116 - Cellulitis of left lower limb (2) Hemiparesis of left nondominant side Hemiparesis etiology: unspecified Qualified Code(s): G81.94 - Hemiplegia, unspecified affecting left nondominant side
[2021-09-08 11:38] LABS: INR 2.7 (0.9-1.1); Prothrombin Time 25.5 Seconds (9.0-12.0)
[2021-09-08 11:44] LABS: BUN Creatinine Ratio 18.1 (10-20); C Reactive Protein 10.1 mg/dl (0-0.29); Calcium 9.6 mg/dl (8.5-10.1); Creatinine Clr Calc Pharmacy 88.2 ml/min; Est GFR (African American) 95.2 ml/min; Est GFR (Non-African American) 82.2 ml/min; Potassium 3.7 mmol/L (3.5-5.1)
--- NOTE | 2021-09-08 16:35 | Billing Data ---
Date of Service September 08, 2021 Coding Level of Care Code 65319 Subseq Hosp Care Lvl 2
[2021-09-08] MEDS: WARFARIN SOD 2.5 MG TAB PO SCH (16:36)
[2021-09-08] MEDS: TROLAMINE SALICYLATE 10% CRM 255 APPLN/85 GM TUBE EXT PRN (21:35)
[2021-09-09] MEDS: MoRPHine SULFATE 2 MG/ML CARP IV PRN (01:56)
[2021-09-09] MEDS: ACETAMINOPHEN 500 MG TAB PO SCH ×4 (03:09→16:33)
[2021-09-09] MEDS: HYDROmorphone INJ 0.5 MG/0.5 ML SYR IV PRN ×3 (06:07→19:44)
[2021-09-09] MEDS: TROLAMINE SALICYLATE 10% CRM 255 APPLN/85 GM TUBE EXT PRN (06:13)
[2021-09-09 08:09] LABS: Basophils # (auto) 0.02 K/uL (0-0.2); Basophils % (auto) 0.2 %; Eosinophils # (auto) 0.08 K/uL (0-0.5); Eosinophils % (auto) 0.8 %; Hemoglobin 14.2 g/dL (14.0-18.0); Immature Granulocytes # (auto) 0.02 K/uL (0.00-0.02); Immature Granulocytes % (auto) 0.2 %; Lymphocytes # (auto) 0.68 K/uL (1.2-3.4); Lymphocytes % (auto) 6.8 %; Mean Corpuscular Hemoglobin 33.3 pg (25-34); Mean Corpuscular Hgb Conc 33.8 g/dL (32-36); Mean Corpuscular Volume 98.4 fL (80-100); Mean Platelet Volume 9.2 fL (7.4-10.4); Monocytes # (auto) 0.76 K/uL (0.11-0.59); Monocytes % (auto) 7.6 %; Neutrophils # (auto) 8.38 K/uL (1.4-6.5); Neutrophils % (auto) 84.4 %; Platelet Count 256 K/uL (130-400); RDW Coefficient of Variation 13.6 % (11.5-14.5); RDW Standard Deviation 48.8 fL (36.4-46.3); Red Blood Count 4.27 M/uL (4.7-6.1); White Blood Count 9.94 K/uL (4.8-10.8)
[2021-09-09] MEDS: DOXYCYCLINE HYCLATE 100 MG CAP PO SCH ×2 (08:10→21:31)
[2021-09-09] MEDS: tiZANidine HCL 4 MG TABLET PO SCH ×2 (08:11→21:33)
[2021-09-09] MEDS: lamoTRIgine 100 MG TAB PO SCH ×2 (08:11→21:32)
[2021-09-09] MEDS: BUMETANIDE 1 MG TAB PO SCH ×2 (08:12→21:31)
[2021-09-09 08:13] LABS: INR 2.6 (0.9-1.1); Prothrombin Time 24.1 Seconds (9.0-12.0)
[2021-09-09] MEDS: lamoTRIgine 25 MG TAB PO SCH ×2 (08:13→21:30)
[2021-09-09] MEDS: PHENYTOIN SODIUM ER 100 MG CAP PO SCH ×2 (08:13→21:30)
[2021-09-09] MEDS: DICLOFENAC SOD 1% GEL 100 GM TUBE EXT SCH ×4 (08:14→21:43)
[2021-09-09] MEDS: POLYETHYLENE (MIRALAX) 17 GM PACK PO SCH ×2 (08:14→21:29)
[2021-09-09 08:41] LABS: BUN Creatinine Ratio 20.2 (10-20); Creatinine Clr Calc Pharmacy 86.4 ml/min; Est GFR (African American) 92.9 ml/min; Est GFR (Non-African American) 80.2 ml/min; Potassium 3.8 mmol/L (3.5-5.1)
--- NOTE | 2021-09-09 08:41 | Hospitalist Progress Note ---
Date of Service September 09, 2021 Assessment & Plan (1) Cellulitis: Plan: #Bilateral lower extremities Cellulitis left greater than right, secondary to severe lower extremity peripheral edema causing cracks in the skin and weeping Patient was placed on Augmentin in the outpatient world and after 2 days deemed to have failed therapy. Based on his cultures, and response to ceftriaxone in the hospital it is unclear if this represents a true treatment failure. Initially when hospitalized he was placed on daptomycin and tx to Zosyn narrowed to Rocephin for total of 5 days of intravenous antibiotic therapy. He was converted to doxycycline p.o. on 421 No leukocytosis, no fevers. Failed outpatient therapy prior to admission -Blood cultures with no growth to date Periportal erythema has gradually improved -Continue doxycycline 100 mg twice daily day 3/5 Continue elevation/compression Wound care consulted #Peripheral edema With severe lower extremity edema much worse the thinks over the last few months, but he has always had larger legs. Review of his chart shows that he has gained 21 kg in the last 7 months of body weight. Echocardiogram from 07/2020 shows elevated right ventricular systolic pressures, preserved LV EF 55-60%, Suspect pulmonary hypertension causing peripheral edema. No proteinuria, serum albumin not severely decreased. Suspect failure of oral Lasix on presentation based on significant edema Patient diuresed adequately with IV Lasix -Transitioned to 2 mg p.o. Bumex twice daily on 09/06 -Significant improvement in edema status post initiation of Lasix. -Tolerating well -Cr stable Low-sodium diet BMP daily #Lower Extremity MSK pain Patient endorsing cramping sensation in his bilateral lower extremities. Describing as a muscular pain. He has previously been assessed for DVT which was negative, there is no signs or symptoms of extension of his cellulitis. Suspect his pain is largely related to lack of mobility, underlying neurological disorder, and muscle spasm related. Strongly encouraged the patient to participate in PT provided with a muscle relaxer with significant improvement today. Recommend topical NSAIDs as needed and for severe exacerbation can consider muscle relaxer. -Given symptoms today will initiate twice daily Zanaflex 2 mg -Prefers as needed Dilaudid to morphine #acute encephalopathy History of recurrent meningitis,No signs of meningitis at time of admission.Somewhat somnolent, but arouses easily and answers questions appropriately during exam Follow clinically #History of brain cancer Status post 2 resections of brain tumor, with residual left-sided hemiparesis after second surgery #Generalized epilepsy -Continue home lamotrigine, phenytoin #Hypertension -Blood pressures are elevated possibly secondary to pain and volume overload #Chronic anticoagulation On Coumadin chronically for history of DVT -Continue home warfarin -PT/INR, target 23 -INR theraputic today, 2.6 -Continue Warfarin 2.5 mg daily #Hemiparesis of left nondominant side As above continue Supportive care -PT/OT consults placed #dyslipidemia Atorvastatin held while on dapto. restarted 09/07 #AVANI Does not tolerate CPAP #Memory impairment Noted Supportive care FENa:low Na Code Status:DNR DVT PPX:DVT prophylaxis-Coumadin PT/OT:consulted Case Management:consulted Dispo: Pending placement at [facility] Sb Russ MD PGY 3, FCM This chart was completed utilizing [employer] voice recognition software. Grammatical errors, random word insertions, pronoun errors, and in complete sentences are an occasional consequence of the system. Any questions or concerns about the content, text, or information contained within the body of this dictation should be addressed directly to the physician for clarification. (2) Peripheral edema: (3) Acute encephalopathy: (4) Hx of brain cancer: (5) Generalized epilepsy: (6) Benign hypertension: (7) Chronic anticoagulation: (8) Hemiparesis of left nondominant side: (9) Dyslipidemia: (10) AVANI (obstructive sleep apnea): (11) Memory impairment: Admission and Anticipated Discharge Date Admission Date: September 02, 2021 Supervising Physician Co-Signing Physician Notes 65-year-old male who presented with bilateral lower extremity edema and cellulitis reportedly failing outpatient therapy, although of note received less than 48 hours of treatment with Augmentin. He has had rapid clinical improvement on Dapto/Zosyn and was narrowed to Rocephinquestion whether his initial failure was actual treatment failure or duration related, clinical course did not continue to improve so was converted back to MRSA coverage on doxy and has since clinically improved. Leg pain improved from prior, and had some narcotic analgesia which helped however at time of assessment he has relatively good range of motion with minimal pain. Minimize narcotic analgesia. No new questions or complaints today.Continue to engage with PT/OT and movement to chair as tolerated. Minimal erythema of the lower extremity, mild bilateral pitting edema remains present. Sensation to soft touch intact in feet bilaterally, pulse intact and symmetrical, symmetrical chest rise with no increased work of breathing and on room air. Continue current antibiotics, placement pending. INR dose reduced while on antibiotics, remains therapeutic. Cellulitis clinically improved. Auth submitted, placement remains pending Subjective Patient lying in bed this morning in no acute distress. Overnight his pain medication was changed from morphine to as needed Dilaudid. He states the Dilaudid helps his pain better than the morphine. Otherwise he is tolerating his diet, voiding, stooling, sleeping well. Acute concerns are related to placement, all questions answered. Review of Systems Review of Systems: All systems reviewed & are unremarkable except as noted in HPI & below Physical Exam Physical Exam: General: No acute distress HEENT: Normocephalic atraumatic Neck: Normal to visual inspection Cardiac: Regular rate and rhythm I did not appreciate significant murmurs rubs or gallops, normal S1, normal S2, 2+ bilateral pedal edema, negative calf tenderness Respiratory: Clear to auscultation bilaterally with symmetrical chest expansion I did not appreciate significant wheezes, rales, rhonchi GI: Soft, nontender, distended abdomen MSK: Moves all extremities, worsening tenderness to palpation over his bilateral quadriceps, feels as if there is a muscle spasm. Psych: Calm and cooperative with the interview Skin: Bilateral lower extremities, erythema is significantly improved, improving edema, still residual signs of infection, Results & Data Results & Data ([facility]) Vital Signs (Past 12 Hours) Vital Signs Temp Pulse Pulse Resp BP Pulse Ox 09/09/21 07:17 97 H 09/09/21 07:02 36.8 C 77 18 134/82 91 09/09/21 04:57 93 H 09/09/21 03:09 36.6 C 96 H 22 159/100 H 96 09/08/21 21:53 36.7 C 98 H 20 164/99 H 96 Laboratory Results 09/09/21 09/09/21 09/09/21 Range/Units 07:35 07:35 07:35 WBC 9.94 (4.8-10.8) K/uL RBC 4.27 L (4.7-6.1) M/uL Hgb 14.2 (14.0-18.0) g/dL Hct 42.0 (42-52) % MCV 98.4 (80-100) fL MCH 33.3 (25-34) pg MCHC 33.8 (32-36) g/dL RDW Std Deviation 48.8 H (36.4-46.3) fL RDW Coeff of Paul 13.6 (11.5-14.5) % Plt Count 256 (130-400) K/uL MPV 9.2 (7.4-10.4) fL Immature Gran % (Auto) 0.2 % Neut % (Auto) 84.4 % Lymph % (Auto) 6.8 % Ocean % (Auto) 7.6 % Eos % (Auto) 0.8 % Baso % (Auto) 0.2 % Neut # (Auto) 8.38 H (1.4-6.5) K/uL Lymph # (Auto) 0.68 L (1.2-3.4) K/uL Ocean # (Auto) 0.76 H (0.11-0.59) K/uL Eos # (Auto) 0.08 (0-0.5) K/uL Baso # (Auto) 0.02 (0-0.2) K/uL Immature Gran # (Auto) 0.02 (0.00-0.02) K/uL PT 24.1 H (9.0-12.0) Seconds INR 2.6 H (0.9-1.1) Sodium 137 (136-145) mmol/L Potassium 3.8 (3.5-5.1) mmol/L Chloride 101 (98-107) mmol/L Carbon Dioxide 30 (21-32) mmol/L Anion Gap 6.0 (3-11) BUN 20 H (7-18) mg/dl Creatinine 0.99 (0.6-1.4) mg/dl Est Cr Clr Drug Dosing 86.4 ml/min Est GFR ( Amer) 92.9 ml/min Est GFR (Non-Af Amer) 80.2 ml/min BUN/Creatinine Ratio 20.2 H (10-20) Glucose 111 H (70-99) mg/dl Calcium 9.0 (8.5-10.1) mg/dl C-Reactive Protein (0-0.29) mg/dl 09/08/21 09/08/21 Range/Units 11:06 11:06 WBC (4.8-10.8) K/uL RBC (4.7-6.1) M/uL Hgb (14.0-18.0) g/dL Hct (42-52) % MCV (80-100) fL MCH (25-34) pg MCHC (32-36) g/dL RDW Std Deviation (36.4-46.3) fL RDW Coeff of Paul (11.5-14.5) % Plt Count (130-400) K/uL MPV (7.4-10.4) fL Immature Gran % (Auto) % Neut % (Auto) % Lymph % (Auto) % Ocean % (Auto) % Eos % (Auto) % Baso % (Auto) % Neut # (Auto) (1.4-6.5) K/uL Lymph # (Auto) (1.2-3.4) K/uL Ocean # (Auto) (0.11-0.59) K/uL Eos # (Auto) (0-0.5) K/uL Baso # (Auto) (0-0.2) K/uL Immature Gran # (Auto) (0.00-0.02) K/uL PT 25.5 H (9.0-12.0) Seconds INR 2.7 H (0.9-1.1) Sodium 136 (136-145) mmol/L Potassium 3.7 (3.5-5.1) mmol/L Chloride 98 (98-107) mmol/L Carbon Dioxide 32 (21-32) mmol/L Anion Gap 5.0 (3-11) BUN 18 (7-18) mg/dl Creatinine 0.97 (0.6-1.4) mg/dl Est Cr Clr Drug Dosing 88.2 ml/min Est GFR ( Amer) 95.2 ml/min Est GFR (Non-Af Amer) 82.2 ml/min BUN/Creatinine Ratio 18.1 (10-20) Glucose 96 (70-99) mg/dl Calcium 9.6 (8.5-10.1) mg/dl C-Reactive Protein 10.10 H (0-0.29) mg/dl Medications Administered Current Inpatient Medications Acetaminophen (Acetaminophen 500 Mg Tab) 1,000 mg PO Q8H [facility] Stop: 10/06/21 10:29 Last Admin: 09/09/21 08:20 Dose: 1,000 mg Documented by: Bisacodyl (Bisacodyl 5 Mg Tabec) 5 mg PO DAILY PRN PRN Reason: Constipation Stop: 10/05/21 15:23 Last Admin: 09/06/21 08:46 Dose: 5 mg Documented by: Bumetanide (Bumetanide 1 Mg Tab) 2 mg PO BID [facility] Stop: 10/06/21 20:59 Last Admin: 09/09/21 08:12 Dose: 2 mg Documented by: Diclofenac Sodium (Diclofenac Sod 1% Gel 100 Gm Tube) 4 gm EXT QID [facility] Stop: 10/07/21 12:59 Last Admin: 09/09/21 08:14 Dose: 4 gm Documented by: Doxycycline Hyclate (Doxycycline Hyclate 100 Mg Cap) 100 mg PO BID [facility] Stop: 09/14/21 08:59 Last Admin: 09/09/21 08:10 Dose: 100 mg Documented by: Hydromorphone HCl (Hydromorphone Inj 0.5 Mg/0.5 Ml Syr) 0.5 mg IV Q6H PRN PRN Reason: Pain Stop: 09/23/21 04:59 Last Admin: 09/09/21 06:07 Dose: 0.5 mg Documented by: Lamotrigine (Lamotrigine 25 Mg Tab) 50 mg PO BID [facility] Stop: 10/02/21 22:07 Last Admin: 09/09/21 08:13 Dose: 50 mg Documented by: Lamotrigine (Lamotrigine 100 Mg Tab) 200 mg PO BID [facility] Stop: 10/02/21 22:07 Last Admin: 09/09/21 08:11 Dose: 200 mg Documented by: Lorazepam (Lorazepam 1 Mg Tab) 1 mg PO DAILY PRN PRN Reason: Seizures Stop: 10/02/21 23:24 Miconazole Nitrate (Miconazole Nitrate Powder 43 Gm) 1 appln EXT PRN PRN PRN Reason: Affected Skin Folds Stop: 10/05/21 18:45 Last Admin: 09/07/21 05:24 Dose: 1 appln Documented by: Ondansetron HCl (Ondansetron Inj 2 Mg/Ml 2 Ml Vial) 4 mg IV Q6H PRN PRN Reason: Nausea Stop: 10/02/21 22:07 Last Admin: 12/19/21 15:14 Dose: 4 mg Documented by: Oxycodone HCl (Oxycodone Hcl Ir 5 Mg Tab (Immediate Release)) 5 mg PO Q8H PRN PRN Reason: pain Stop: 09/16/21 22:07 Last Admin: 09/08/21 23:20 Dose: 5 mg Documented by: Phenytoin Sodium (Phenytoin Sodium Er 100 Mg Cap) 200 mg PO BID [facility] Stop: 10/02/21 22:07 Last Admin: 09/09/21 08:13 Dose: 200 mg Documented by: Polyethylene Glycol (Polyethylene (Miralax) 17 Gm Pack) 17 gm PO BID [facility] Stop: 10/06/21 10:29 Last Admin: 09/09/21 08:14 Dose: Not Given Documented by: Tizanidine HCl (Tizanidine Hcl 4 Mg Tablet) 2 mg PO BID [facility] Stop: 10/08/21 08:59 Last Admin: 09/09/21 08:11 Dose: 2 mg Documented by: Trolamine Salicylate (Trolamine Salicylate 10% Crm 255 Appln/85 Gm Tube) 1 appln EXT QID PRN PRN Reason: muscle cramps Stop: 10/07/21 09:06 Last Admin: 09/09/21 06:13 Dose: 1 appln Documented by: Warfarin Sodium (Warfarin Sod 5 Mg Tab) 5 mg PO SuTuWeThSa@1600 [facility] Stop: 10/04/21 15:59 Last Admin: 09/05/21 15:16 Dose: 5 mg Documented by: Warfarin Sodium (Warfarin Sod 2.5 Mg Tab) 2.5 mg PO MoFr@1600 [facility] Stop: 10/03/21 15:59 Last Admin: 09/06/21 15:57 Dose: 2.5 mg Documented by: Warfarin Sodium (Warfarin Sod 2.5 Mg Tab) 2.5 mg PO DAILY@1600 [facility] Stop: 10/08/21 15:59 Last Admin: 09/08/21 16:36 Dose: 2.5 mg Documented by: (1) Cellulitis Laterality: left Site of cellulitis: extremity Site of cellulitis of extremity: lower extremity Qualified Code(s): L03.116 - Cellulitis of left lower limb (2) Hemiparesis of left nondominant side Hemiparesis etiology: unspecified Qualified Code(s): G81.94 - Hemiplegia, unspecified affecting left nondominant side
[2021-09-09] MEDS: WARFARIN SOD 2.5 MG TAB PO SCH (16:33)
--- NOTE | 2021-09-09 16:57 | Billing Data ---
Date of Service September 09, 2021 Coding Level of Care Code 25973 Subseq Hosp Care Lvl 1
[2021-09-10] MEDS: oxyCODONE HCL IR 5 MG TAB (IMMEDIATE RELEASE) PO PRN ×3 (00:34→20:25)
[2021-09-10] MEDS: HYDROmorphone INJ 0.5 MG/0.5 ML SYR IV PRN (02:10)
[2021-09-10] MEDS: ACETAMINOPHEN 500 MG TAB PO SCH ×3 (02:12→16:31)
[2021-09-10] MEDS ORDERED: HALOPERIDOL LACTATE 5 MG/ML 1 ML VIAL IM STA (04:21)
[2021-09-10] MEDS ORDERED: HALOPERIDOL LACTATE 5 MG/ML 1 ML VIAL ONE (04:35)
[2021-09-10] MEDS ORDERED: LORazepam 1 MG TAB PO STA (05:24)
[2021-09-10 07:18] LABS: Basophils # (auto) 0.02 K/uL (0-0.2); Basophils % (auto) 0.2 %; Eosinophils # (auto) 0.05 K/uL (0-0.5); Eosinophils % (auto) 0.5 %; Hematocrit (blood only) 39.6 % (42-52); Hemoglobin 13.3 g/dL (14.0-18.0); Immature Granulocytes # (auto) 0.01 K/uL (0.00-0.02); Immature Granulocytes % (auto) 0.1 %; Lymphocytes # (auto) 0.97 K/uL (1.2-3.4); Lymphocytes % (auto) 8.9 %; Mean Corpuscular Hemoglobin 32.9 pg (25-34); Mean Corpuscular Hgb Conc 33.6 g/dL (32-36); Mean Platelet Volume 9.4 fL (7.4-10.4); Monocytes # (auto) 1.36 K/uL (0.11-0.59); Monocytes % (auto) 12.5 %; Neutrophils # (auto) 8.49 K/uL (1.4-6.5); Neutrophils % (auto) 77.8 %; Platelet Count 263 K/uL (130-400); RDW Coefficient of Variation 13.7 % (11.5-14.5); RDW Standard Deviation 49.2 fL (36.4-46.3); Red Blood Count 4.04 M/uL (4.7-6.1)
[2021-09-10] MEDS: DOXYCYCLINE HYCLATE 100 MG CAP PO SCH ×2 (07:35→20:20)
[2021-09-10] MEDS: DICLOFENAC SOD 1% GEL 100 GM TUBE EXT SCH ×4 (07:35→20:18)
[2021-09-10] MEDS: lamoTRIgine 25 MG TAB PO SCH ×2 (07:35→20:17)
[2021-09-10] MEDS: PHENYTOIN SODIUM ER 100 MG CAP PO SCH ×2 (07:36→20:17)
[2021-09-10] MEDS: BUMETANIDE 1 MG TAB PO SCH ×2 (07:36→22:03)
[2021-09-10] MEDS: lamoTRIgine 100 MG TAB PO SCH ×2 (07:36→20:20)
[2021-09-10] MEDS: POLYETHYLENE (MIRALAX) 17 GM PACK PO SCH ×2 (07:37→20:19)
[2021-09-10] MEDS: tiZANidine HCL 4 MG TABLET PO SCH ×2 (07:44→20:18)
[2021-09-10 07:45] LABS: INR 4.1 (0.9-1.1); Prothrombin Time 37.3 Seconds (9.0-12.0)
[2021-09-10 07:47] LABS: BUN Creatinine Ratio 23.2 (10-20); Calcium 9.2 mg/dl (8.5-10.1); Creatinine Clr Calc Pharmacy 87.1 ml/min; Est GFR (African American) 90.7 ml/min; Est GFR (Non-African American) 78.2 ml/min; Potassium 3.7 mmol/L (3.5-5.1)
--- NOTE | 2021-09-10 07:54 | Hospitalist Progress Note ---
Date of Service September 10, 2021 Assessment & Plan (1) Cellulitis: Plan: #Bilateral lower extremities Cellulitis left greater than right, secondary to severe lower extremity peripheral edema causing cracks in the skin and weeping Patient was placed on Augmentin in the outpatient world and after 2 days deemed to have failed therapy. Based on his cultures, and response to ceftriaxone in the hospital it is unclear if this represents a true treatment failure. Initially when hospitalized he was placed on daptomycin and tx to Zosyn narrowed to Rocephin for total of 5 days of intravenous antibiotic therapy. He was converted to doxycycline p.o. on 421 No leukocytosis, no fevers. Failed outpatient therapy prior to admission -Blood cultures with no growth to date -Continue doxycycline 100 mg twice daily day 4/5 Continue elevation/compression Wound care consulted #Peripheral edema With severe lower extremity edema much worse the thinks over the last few months, but he has always had larger legs. Review of his chart shows that he has gained 21 kg in the last 7 months of body weight. Echocardiogram from 07/2020 shows elevated right ventricular systolic pressures, preserved LV EF 55-60%, Suspect pulmonary hypertension causing peripheral edema. No proteinuria, serum albumin not severely decreased. Suspect failure of oral Lasix on presentation based on significant edema Patient diuresed adequately with IV Lasix -Transitioned to 2 mg p.o. Bumex twice daily on 09/06 -Significant improvement in edema status post initiation of Lasix. -Tolerating well -Cr stable -Reduced to 1 mg Bumex bid on 09/10, concern for intraascular depletion Low-sodium diet BMP daily #Lower Extremity MSK pain Patient endorsing cramping sensation in his bilateral lower extremities. Describing as a muscular pain. He has previously been assessed for DVT which was negative, there is no signs or symptoms of extension of his cellulitis. Suspect his pain is largely related to lack of mobility, underlying neurological disorder, and muscle spasm related. Strongly encouraged the patient to participate in PT provided with a muscle relaxer with significant improvement today. Recommend topical NSAIDs as needed and for severe exacerbation can consider muscle relaxer. -Given symptoms today will initiate twice daily Zanaflex 2 mg #acute encephalopathy History of recurrent meningitis,No signs of meningitis at time of admission.Somewhat somnolent, but arouses easily and answers questions appropriately during exam Follow clinically #History of brain cancer Status post 2 resections of brain tumor, with residual left-sided hemiparesis after second surgery #Generalized epilepsy -Continue home lamotrigine, phenytoin #Hypertension -Blood pressures are elevated possibly secondary to pain and volume overload #Chronic anticoagulation On Coumadin chronically for history of DVT -Continue home warfarin -PT/INR, target 23 -INR theraputic today, 4.1 -holding Warfarin -2/2 to poor po? #Hemiparesis of left nondominant side As above continue Supportive care -PT/OT consults placed #dyslipidemia Atorvastatin held while on dapto. restarted 09/07 #AVANI Does not tolerate CPAP #Memory impairment Noted Supportive care FENa:low Na Code Status:DNR DVT PPX:DVT prophylaxis-Coumadin PT/OT:consulted Case Management:consulted Dispo: Pending placement at [facility] S[facility] Russ MD PGY 3, FCM This chart was completed utilizing [employer] voice recognition software. Grammatical errors, random word insertions, pronoun errors, and in complete sentences are an occasional consequence of the system. Any questions or concerns about the content, text, or information contained within the body of this dictation should be addressed directly to the physician for clarification. (2) Peripheral edema: (3) Acute encephalopathy: (4) Hx of brain cancer: (5) Generalized epilepsy: (6) Benign hypertension: (7) Chronic anticoagulation: (8) Hemiparesis of left nondominant side: (9) Dyslipidemia: (10) AVANI (obstructive sleep apnea): (11) Memory impairment: Admission and Anticipated Discharge Date Admission Date: September 02, 2021 Supervising Physician Co-Signing Physician Notes 65-year-old male who presented with bilateral lower extremity edema and cellulitis reportedly failing outpatient therapy, although of note received less than 48 hours of treatment with Augmentin. He has had rapid clinical improvement on Dapto/Zosyn and was narrowed to Rocephinquestion whether his initial failure was actual treatment failure or duration related, clinical course did not continue to improve so was converted back to MRSA coverage on doxy and has since clinically improved. Episode of acute agitation overnight, patient reports he feels "fine, I have to poop "this morning. Leg feels mostly unchanged, was more painful to him last night but feels tolerable with intact range of motion today. Otherwise no new questions/complaints, would like to have a bedpan so he can go to the bathroom. CTAB. Extremities with improved edema, erythema remains improved. RRR, radial pulse intact. No signs of bleeding. Cellulitis: Clinically greatly improved, continue doxycycline course as above Peripheral edema: Improved patient with some morning tachycardia and bumped BUN,? Intravascular depletion will dose reduce Bumex to 1 mg. Low-sodium diet Lower extremity cramping/pain. Per assessment as noted above, negative on DVT evaluation, patient has had pain resolution intermittently with OMT and stretching exercises as intermittently tolerated. Continue topical NSAIDs and PT History of DVT: INR 4.1, supra therapeutic, hold single dose of warfarin, INR in a.m. resume as indicated. No signs of bleeding Pending placement Subjective Patient resting comfortably in bed this morning in no acute distress. Patient was sleeping well per report overnight he became agitated and required a as needed Haldol. Since that time he has been doing much better. Still tolerating his diet, voiding, stooling. Acute concerns related to placement. Physical Exam Physical Exam: General: No acute distress HEENT: Normocephalic atraumatic Neck: Normal to visual inspection Cardiac: Regular rate and rhythm I did not appreciate significant murmurs rubs or gallops, normal S1, normal S2, 2+ bilateral pedal edema, negative calf tenderness Respiratory: Clear to auscultation bilaterally with symmetrical chest expansion I did not appreciate significant wheezes, rales, rhonchi GI: Soft, nontender, distended abdomen MSK: Moves all extremities, Psych: Calm and cooperative with the interview Skin: Bilateral lower extremities, erythema is significantly improved, edema improved significantly Results & Data Results & Data ([facility]) Vital Signs (Past 12 Hours) Vital Signs Temp Pulse Pulse Resp BP BP Pulse Ox 09/10/21 07:18 115 H 09/10/21 03:00 37.2 C 97 H 22 155/94 H 90 09/09/21 23:58 37.8 C H 105 H 20 120/77 93 09/09/21 23:33 97 H Laboratory Results 09/10/21 09/10/21 09/10/21 Range/Units 06:42 06:42 06:42 WBC 10.90 H (4.8-10.8) K/uL RBC 4.04 L (4.7-6.1) M/uL Hgb 13.3 L (14.0-18.0) g/dL Hct 39.6 L (42-52) % MCV 98.0 (80-100) fL MCH 32.9 (25-34) pg MCHC 33.6 (32-36) g/dL RDW Std Deviation 49.2 H (36.4-46.3) fL RDW Coeff of Paul 13.7 (11.5-14.5) % Plt Count 263 (130-400) K/uL MPV 9.4 (7.4-10.4) fL Immature Gran % (Auto) 0.1 % Neut % (Auto) 77.8 % Lymph % (Auto) 8.9 % [place] % (Auto) 12.5 % Eos % (Auto) 0.5 % Baso % (Auto) 0.2 % Neut # (Auto) 8.49 H (1.4-6.5) K/uL Lymph # (Auto) 0.97 L (1.2-3.4) K/uL [place] # (Auto) 1.36 H (0.11-0.59) K/uL Eos # (Auto) 0.05 (0-0.5) K/uL Baso # (Auto) 0.02 (0-0.2) K/uL Immature Gran # (Auto) 0.01 (0.00-0.02) K/uL PT 37.3 H (9.0-12.0) Seconds INR 4.1 H (0.9-1.1) Sodium 136 (136-145) mmol/L Potassium 3.7 (3.5-5.1) mmol/L Chloride 99 (98-107) mmol/L Carbon Dioxide 32 (21-32) mmol/L Anion Gap 6.0 (3-11) BUN 23 H (7-18) mg/dl Creatinine 1.01 (0.6-1.4) mg/dl Est Cr Clr Drug Dosing 87.1 ml/min Est GFR ( Amer) 90.7 ml/min Est GFR (Non-Af Amer) 78.2 ml/min BUN/Creatinine Ratio 23.2 H (10-20) Glucose 122 H (70-99) mg/dl Calcium 9.2 (8.5-10.1) mg/dl Medications Administered Current Inpatient Medications Acetaminophen (Acetaminophen 500 Mg Tab) 1,000 mg PO Q8H [facility] Stop: 10/06/21 10:29 Last Admin: 09/10/21 16:31 Dose: 1,000 mg Documented by: Bisacodyl (Bisacodyl 5 Mg Tabec) 5 mg PO DAILY PRN PRN Reason: Constipation Stop: 10/05/21 15:23 Last Admin: 09/06/21 08:46 Dose: 5 mg Documented by: Bumetanide (Bumetanide 1 Mg Tab) 1 mg PO BID [facility] Stop: 10/10/21 20:59 Diclofenac Sodium (Diclofenac Sod 1% Gel 100 Gm Tube) 4 gm EXT QID [facility] Stop: 10/07/21 12:59 Last Admin: 09/10/21 16:31 Dose: 4 gm Documented by: Doxycycline Hyclate (Doxycycline Hyclate 100 Mg Cap) 100 mg PO BID [facility] Stop: 09/14/21 08:59 Last Admin: 09/10/21 07:35 Dose: 100 mg Documented by: Hydromorphone HCl (Hydromorphone Inj 0.5 Mg/0.5 Ml Syr) 0.5 mg IV Q6H PRN PRN Reason: Pain Stop: 09/23/21 04:59 Last Admin: 09/10/21 02:10 Dose: 0.5 mg Documented by: Lamotrigine (Lamotrigine 25 Mg Tab) 50 mg PO BID [facility] Stop: 10/02/21 22:07 Last Admin: 09/10/21 07:35 Dose: 50 mg Documented by: Lamotrigine (Lamotrigine 100 Mg Tab) 200 mg PO BID [facility] Stop: 10/02/21 22:07 Last Admin: 09/10/21 07:36 Dose: 200 mg Documented by: Lorazepam (Lorazepam 1 Mg Tab) 1 mg PO DAILY PRN PRN Reason: Seizures Stop: 10/02/21 23:24 Miconazole Nitrate (Miconazole Nitrate Powder 43 Gm) 1 appln EXT PRN PRN PRN Reason: Affected Skin Folds Stop: 10/05/21 18:45 Last Admin: 09/07/21 05:24 Dose: 1 appln Documented by: Ondansetron HCl (Ondansetron Inj 2 Mg/Ml 2 Ml Vial) 4 mg IV Q6H PRN PRN Reason: Nausea Stop: 10/02/21 22:07 Last Admin: 09/05/21 15:14 Dose: 4 mg Documented by: Oxycodone HCl (Oxycodone Hcl Ir 5 Mg Tab (Immediate Release)) 5 mg PO Q8H PRN PRN Reason: pain Stop: 09/16/21 22:07 Last Admin: 09/10/21 13:11 Dose: 5 mg Documented by: Phenytoin Sodium (Phenytoin Sodium Er 100 Mg Cap) 200 mg PO BID [facility] Stop: 10/02/21 22:07 Last Admin: 09/10/21 07:36 Dose: 200 mg Documented by: Polyethylene Glycol (Polyethylene (Miralax) 17 Gm Pack) 17 gm PO BID [facility] Stop: 10/06/21 10:29 Last Admin: 09/10/21 07:37 Dose: Not Given Documented by: Tizanidine HCl (Tizanidine Hcl 4 Mg Tablet) 2 mg PO BID [facility] Stop: 10/08/21 08:59 Last Admin: 09/10/21 07:44 Dose: 2 mg Documented by: Trolamine Salicylate (Trolamine Salicylate 10% Crm 255 Appln/85 Gm Tube) 1 appln EXT QID PRN PRN Reason: muscle cramps Stop: 10/07/21 09:06 Last Admin: 09/09/21 06:13 Dose: 1 appln Documented by: Warfarin Sodium (Warfarin Sod 5 Mg Tab) 5 mg PO [email or web address]@1600 [facility] Stop: 10/04/21 15:59 Last Admin: 09/05/21 15:16 Dose: 5 mg Documented by: Warfarin Sodium (Warfarin Sod 2.5 Mg Tab) 2.5 mg PO MoFr@1600 [facility] Stop: 10/03/21 15:59 Last Admin: 09/06/21 15:57 Dose: 2.5 mg Documented by: Warfarin Sodium (Warfarin Sod 2.5 Mg Tab) 2.5 mg PO DAILY@1600 [facility] Stop: 10/08/21 15:59 Last Admin: 09/09/21 16:33 Dose: 2.5 mg Documented by: (1) Cellulitis Laterality: left Site of cellulitis: extremity Site of cellulitis of e xtremity: lower extremity Qualified Code(s): L03.116 - Cellulitis of left lower limb (2) Hemiparesis of left nondominant side Hemiparesis etiology: unspecified Qualified Code(s): G81.94 - Hemiplegia, unspecified affecting left nondominant side
--- NOTE | 2021-09-10 17:42 | Billing Data ---
Date of Service September 10, 2021 Coding Level of Care Code 95183 Subseq Hosp Care Lvl 1
[2021-09-10] MEDS: TROLAMINE SALICYLATE 10% CRM 255 APPLN/85 GM TUBE EXT PRN (21:41)
[2021-09-11] MEDS ORDERED: HYDROmorphone INJ 0.5 MG/0.5 ML SYR IV STA (00:10)
[2021-09-11] MEDS: ONDANSETRON INJ 2 MG/ML 2 ML VIAL IV PRN ×2 (01:13→16:55)
[2021-09-11] MEDS: ACETAMINOPHEN 500 MG TAB PO SCH ×3 (05:30→18:11)
[2021-09-11] MEDS: oxyCODONE HCL IR 5 MG TAB (IMMEDIATE RELEASE) PO PRN ×2 (05:47→15:19)
--- NOTE | 2021-09-11 06:03 | Hospitalist Progress Note ---
Date of Service September 11, 2021 Assessment & Plan (1) Cellulitis: Plan: Balbir is a 65-year-old male with history of AVANI (unable to tolerate CPAP), pHTN, and prior DVTs who presented with bilateral lower extremity cellulitis that did not respond to outpatient therapy Bilateral LE Cellulitis (L>R) -- secondary to severe lower extremity peripheral edema causing cracks in the skin and weeping - Previously on Augmentin in outpatient setting (x2 days) -- unclear if true treatment failure - s/p Dapto/Zosyn -> CFTX for total of 5 days - Transitioned to doxycycline on 09/07, end 09/11 - Continue compression, elevation - WOCN following - appreciate insight, recommendations Lower Extremity Edema -- improving with diuresis - With severe lower extremity edema much worse his thinks over the last few months, but he has always had larger legs. Review of his chart shows that he has gained 21 kg in the last 7 months of body weight. - Echocardiogram from 07/2020 shows elevated right ventricular systolic pressures, preserved LV EF 55-60%, ?possibly secondary to pHTN given AVANI. No proteinuria, serum albumin not severely decreased. - Suspect home Lasix regimen was inadequate, based on significant edema and the above discovered at admission - Diuresed adequately with IV Lasix --> PO Bumex - Continue Bumex 1mg - Low-sodium diet - Compression stockings, elevation, as above - Monitor BMP Lower Extremity Pain - Suspect secondary to the above issues, as well as deconditioning, muscle spasm - Continue PT - Topical NSAIDs - Tizanidine 2mg b.i.d. - In setting of previous L-sided tumor resection, possible this may represent spasticity; could trial Baclofen if Tizanidine provides no relief. Encephalopathy - Suspect was previously metabolic in setting on ongoing cellulitis, but also likely contributory from chronic memory impairment - History of meningitis noted - no signs or active concern for this at this time - Stable. Monitor. History of Brain Cancer - Status post 2 resections of brain tumor, with residual left-sided hemiparesis after second surgery Epilepsy -Continue home lamotrigine, phenytoin HTN - Stable. Monitor. History of DVT / Chronic Anticoagulation -- INR goal 2-3 - On Coumadin chronically for history of DVT - Supratherapeutic INR on 09/10 - 4.1 -- dose held, suspect secondary to doxycycline and ?poor PO intake - INR today: 6.1 -- hold dose again - Complete doxycycline today, monitor INR q1d Chronic Hemiparesis of L side - Secondary to brain cancer s/p resection - PT, OT HLD - Continue Lipitor AVANI - Patient does not tolerate CPAP, but does have known history of AVANI - Continue to encourage CPAP going forward, especially in setting of b/l LE edema and elevated pulmonary pressures Memory impairment - Supportive care FENa:low Na Code Status:DNR/DNI DVT PPX:DVT prophylaxis-Coumadin PT/OT:consulted Case Management:consulted Dispo: Pending placement at [facility] (2) Peripheral edema: (3) Acute encephalopathy: (4) Hx of brain cancer: (5) Generalized epilepsy: (6) Benign hypertension: (7) Chronic anticoagulation: (8) Hemiparesis of left nondominant side: (9) Dyslipidemia: (10) AVANI (obstructive sleep apnea): (11) Memory impairment: Admission and Anticipated Discharge Date Admission Date: September 02, 2021 Supervising Physician Co-Signing Physician Notes 65-year-old male who presented with bilateral lower extremity edema and cellulitis reportedly failing outpatient therapy, although of note received less than 48 hours of treatment with Augmentin. He has had rapid clinical improvement on Dapto/Zosyn and was narrowed to Rocephinquestion whether his initial failure was actual treatment failure or duration related, clinical course did not continue to improve so was converted back to MRSA coverage on doxy and has since clinically improved. Episode of acute agitation overnight, patient reports he feels "fine, I have to poop "this morning. Leg feels mostly unchanged, was more painful to him last night but feels tolerable with intact range of motion today. Otherwise no new questions/complaints, would like to have a bedpan so he can go to the bathroom. CTAB. Extremities with improved edema, erythema remains improved. RRR, radial pulse intact. No signs of bleeding. Cellulitis: Clinically greatly improved, continue doxycycline course as above Peripheral edema: Improved patient with some morning tachycardia and bumped BUN,? Intravascular depletion will dose reduce Bumex to 1 mg. Low-sodium diet Lower extremity cramping/pain. Per assessment as noted above, negative on DVT evaluation, patient has had pain resolution intermittently with OMT and stretching exercises as intermittently tolerated. Continue topical NSAIDs and PT History of DVT: INR remains supratherapeutic on 09/11. Likely due to antibiotics. will hold for another day. rechecl INR in a.m. resume as indicated. No signs of bleeding Pending placement Subjective NAEO. Reporting pain in LLE, primarily in the thigh. No pain elsewhere or in the R leg. No CP, palpitations, SOB. No n/v/d. Denies short of breath to me this AM, though ?on nasal cannula. Review of Systems Review of Systems: as per HPI Physical Exam Physical Exam: General: Tired and intermittently confused 65-year-old male who is alert to person, place, and year. Mild distress secondary to pain in LLE> HEENT: NCAT. Eyes - Sclera are white, anicteric, and without injection. MMM. No JVD. Cardiac: Normal rate and regular rhythm; S1 and S2 present with no murmurs, rubs, or gallops. Pulmonary: Good respiratory effort with symmetric expansion of the chest. No use of accessory muscles. Lungs were clear to auscultation bilaterally with no crackles or wheezes. Abdominal: Normoactive bowel sounds. Abdomen was soft, nondistended, and non- tender to palpation. No hepatomegaly or splenomegaly. Extremities: Examination of the LLE demonstrates erythematous and scaly-like changes over the anterior thigh. 2+ pitting edema. Examination of the R similarly shows erythema, but without scale. Results & Data Results & Data ([facility]) Vital Signs (Past 12 Hours) Vital Signs Temp Pulse Pulse Resp BP Pulse Ox 09/11/21 05:29 113 H 09/11/21 03:31 37.4 C 122 H 18 115/71 95 09/11/21 02:16 116 H 09/10/21 22:10 37.1 C 107 H 20 123/81 95 09/10/21 20:48 37.3 C 110 H 20 170/69 H 95 09/10/21 20:13 85 L 09/10/21 18:30 96 H Resident Activity Tracking Resident Involvement: Resident Care Provided Care Provided: Adult [facility] (1) Cellulitis Laterality: left Site of cellulitis: extremity Site of cellulitis of extrem ity: lower extremity Qualified Code(s): L03.116 - Cellulitis of left lower limb (2) Hemiparesis of left nondominant side Hemiparesis etiology: unspecified Qualified Code(s): G81.94 - Hemiplegia, unspecified affecting left nondominant side
[2021-09-11 07:52] LABS: Prothrombin Time 53.7 Seconds (9.0-12.0)
[2021-09-11 07:59] LABS: INR 6.1 (0.9-1.1)
[2021-09-11 08:00] LABS: ALC (manual) 0.94 K/uL (1.2-3.4); ANC (manual) 11.63 K/uL (1.4-6.5); Basophils # (manual) 0.12 K/uL (0-0.2); Basophils % (manual) 0.9 %; Hemoglobin 11.6 g/dL (14.0-18.0); Lymphocytes # (manual) 0.94 K/uL (1.2-3.4); Lymphocytes % (manual) 7.1 %; Mean Corpuscular Hgb Conc 33.1 g/dL (32-36); Mean Corpuscular Volume 99.4 fL (80-100); Mean Platelet Volume 9.4 fL (7.4-10.4); Monocytes # (manual) 0.58 K/uL (0.11-0.59); Monocytes % (manual) 4.4 %; Neutrophils # (manual) 11.63 K/uL (1.4-6.5); Neutrophils % (manual) 87.6 %; Platelet Count 250 K/uL (130-400); RDW Coefficient of Variation 13.8 % (11.5-14.5); RDW Standard Deviation 49.6 fL (36.4-46.3); Red Blood Count 3.52 M/uL (4.7-6.1); White Blood Count 13.28 K/uL (4.8-10.8)
[2021-09-11 08:06] LABS: BUN Creatinine Ratio 25.4 (10-20); Calcium 9.4 mg/dl (8.5-10.1); Creatinine Clr Calc Pharmacy 94.7 ml/min; Est GFR (African American) 104.2 ml/min; Est GFR (Non-African American) 89.9 ml/min; Potassium 3.7 mmol/L (3.5-5.1)
[2021-09-11] MEDS: BUMETANIDE 1 MG TAB PO SCH ×2 (08:17→21:24)
[2021-09-11] MEDS: DICLOFENAC SOD 1% GEL 100 GM TUBE EXT SCH ×4 (08:17→20:33)
[2021-09-11] MEDS: lamoTRIgine 25 MG TAB PO SCH ×2 (08:17→21:26)
[2021-09-11] MEDS: PHENYTOIN SODIUM ER 100 MG CAP PO SCH ×2 (08:17→21:25)
[2021-09-11] MEDS: POLYETHYLENE (MIRALAX) 17 GM PACK PO SCH ×2 (08:17→20:34)
[2021-09-11] MEDS: lamoTRIgine 100 MG TAB PO SCH ×2 (08:18→21:25)
[2021-09-11] MEDS: tiZANidine HCL 4 MG TABLET PO SCH (08:18)
[2021-09-11] MEDS: DOXYCYCLINE HYCLATE 100 MG CAP PO SCH ×2 (08:18→21:26)
[2021-09-11] MEDS: LORazepam 1 MG TAB PO PRN (17:46)
[2021-09-11] MEDS: TROLAMINE SALICYLATE 10% CRM 255 APPLN/85 GM TUBE EXT SCH (20:34)
[2021-09-11] MEDS: BACLOFEN 10 MG TAB PO SCH (20:35)
[2021-09-11] MEDS ORDERED: LORazepam 1 MG TAB PO STA (21:22)
[2021-09-12] MEDS: oxyCODONE HCL IR 5 MG TAB (IMMEDIATE RELEASE) PO PRN ×3 (01:07→22:23)
[2021-09-12] MEDS: ACETAMINOPHEN 500 MG TAB PO SCH ×3 (04:09→17:40)
--- NOTE | 2021-09-12 07:12 | Hospitalist Progress Note ---
Date of Service September 12, 2021 Assessment & Plan (1) Cellulitis: Plan: Balbir is a 65-year-old male with history of AVANI (unable to tolerate CPAP), pHTN, and prior DVTs who presented with bilateral lower extremity cellulitis that did not respond to outpatient therapy Bilateral LE Cellulitis (L>R) -- secondary to severe lower extremity peripheral edema causing cracks in the skin and weeping - Previously on Augmentin in outpatient setting (x2 days) -- unclear if true treatment failure - s/p Dapto/Zosyn -> CFTX for total of 5 days - Transitioned to doxycycline on 09/07, finished 09/11 - Continue compression, elevation - WOCN following - appreciate insight, recommendations Lower Extremity Edema -- improving with diuresis - With severe lower extremity edema much worse his thinks over the last few months, but he has always had larger legs. Review of his chart shows that he has gained 21 kg in the last 7 months of body weight. - Echocardiogram from 07/2020 shows preserved LV EF 55-60%. Possibly contributory from AVANI. No proteinuria, serum albumin not severely decreased. - Suspect home Lasix regimen was inadequate, based on significant edema and the above discovered at admission - Diuresed adequately with IV Lasix --> PO Bumex - Continue Bumex 1mg b.i.d. - Low-sodium diet, compression stockings, elevation, as above - Monitor BMP Lower Extremity Pain - Suspect secondary to the above issues, as well as deconditioning, muscle spasm - In setting of previous L-sided tumor resection, possible this may represent spasticity too - Continue PT, topical NSAIDs, Bengay - Baclofen 5mg t.i.d. - can increase by 5mg q3d towards max dose of 80mg if helping. Seems to be responding well. Encephalopathy - Suspect was previously metabolic in setting on ongoing cellulitis, but also likely contributory from chronic memory impairment - History of meningitis noted - no signs or active concern for this at this time - Stable. Monitor. History of Brain Cancer - Status post 2 resections of brain tumor, with residual left-sided hemiparesis after second surgery Epilepsy - Continue home lamotrigine, phenytoin HTN - Stable. Monitor. History of DVT / Chronic Anticoagulation -- INR goal 2-3 - On Coumadin chronically for history of DVT - Supratherapeutic INR: 4.1 -> 6.1 on 09/11 - Today at 5.7 following 2 held doses and completion of doxycycline - Give Warfarin 2.5mg today - Suspect decreased PO intake and doxycycline are culprits for elevated INR and will normalize over next few days Chronic Hemiparesis of L side - Secondary to brain cancer s/p resection - PT, OT HLD - Continue Lipitor AVANI - Patient does not tolerate CPAP, but does have known history of AVANI - Continue to encourage CPAP going forward, especially in setting of b/l LE edema and elevated pulmonary pressures Memory impairment - Supportive care FENa:low Na Code Status:DNR/DNI DVT PPX:DVT prophylaxis-Coumadin PT/OT:consulted Case Management:consulted Dispo: Pending placement at [facility] (2) Peripheral edema: (3) Acute encephalopathy: (4) Hx of brain cancer: (5) Generalized epilepsy: (6) Benign hypertension: (7) Chronic anticoagulation: (8) Hemiparesis of left nondominant side: (9) Dyslipidemia: (10) AVANI (obstructive sleep apnea): (11) Memory impairment: Admission and Anticipated Discharge Date Admission Date: September 02, 2021 Supervising Physician Co-Signing Physician Notes 65-year-old male who presented with bilateral lower extremity edema and cellulitis reportedly failing outpatient therapy, although of note received less than 48 hours of treatment with Augmentin. He has had rapid clinical improvement on Dapto/Zosyn and was narrowed to Rocephinquestion whether his initial failure was actual treatment failure or duration related, clinical course did not continue to improve so was converted back to MRSA coverage on doxy and has since clinically improved. Episode of acute agitation overnight, patient reports he feels "fine, I have to poop "this morning. Leg feels mostly unchanged, was more painful to him last night but feels tolerable with intact range of motion today. Otherwise no new questions/complaints, would like to have a bedpan so he can go to the bathroom. CTAB. Extremities with improved edema, erythema remains improved. RRR, radial pulse intact. No signs of bleeding. Cellulitis: Clinically greatly improved, continue doxycycline course as above Peripheral edema: Improved patient with some morning tachycardia and bumped BUN,? Intravascular depletion will dose reduce Bumex to 1 mg. Low-sodium diet Lower extremity cramping/pain. Improved with baclofen. Per assessment as noted above, negative on DVT evaluation, patient has had pain resolution intermittently with OMT and stretching exercises as intermittently tolerated. Continue topical NSAIDs and PT History of DVT: INR remains supratherapeutic on 09/12. Likely due to antibiotics: doxycycline. will held for 2 days. will order 2.5 mg today as anticipate warfarin level to decrease tomorrow. rechecked INR in a.m. No signs of bleeding Pending placement Subjective Agitated overnight, did receive 1mg Ativan following attempts at reorientation. Otherwise NAEO. Pain improved this morning - he thinks Baclofen is helping. Unable to obtain meaningful history from patient this morning given somnolence. Review of Systems Review of Systems: Unobtainable due to cognitive status Physical Exam Physical Exam: General: Tired and intermittently confused 65-year-old male, just awaking from his sleep. Unable to obtain meaningful history. HEENT: NCAT. Eyes - Sclera are white, anicteric, and without injection. MMM. No JVD. Cardiac: Normal rate and regular rhythm; S1 and S2 present with no murmurs, rubs, or gallops. Pulmonary: Good respiratory effort with symmetric expansion of the chest. No use of accessory muscles. Lungs were clear to auscultation bilaterally with no crackles or wheezes. Abdominal: Normoactive bowel sounds. Abdomen was soft, nondistended, and non- tender to palpation. Extremities: Examination of the LLE demonstrates erythematous and scaly-like changes over the anterior thigh. 1+ pitting edema. Examination of the R similarly shows erythema, but without scale. Overall - exam improved compared to yesterday. Results & Data Results & Data ([facility]) Vital Signs (Past 12 Hours) Vital Signs Temp Pulse Resp BP Pulse Ox 09/12/21 03:25 37.1 C 101 H 18 150/85 H 90 09/11/21 23:28 37 C 104 H 18 120/73 91 09/11/21 19:52 36.8 C 109 H 18 94/60 L 90 Resident Activity Tracking Resident Involvement: Resident Care Provided Care Provided: Adult Hospital Medicine (1) Cellulitis Laterality: left Site of cellulitis: extremity Site of cellulitis of extremity: lower extremity Qualified Code(s): L03.116 - Cellulitis of left low er limb (2) Hemiparesis of left nondominant side Hemiparesis etiology: unspecified Qualified Code(s): G81.94 - Hemiplegia, unspecified affecting left nondominant side
[2021-09-12 07:15] LABS: Prothrombin Time 50.8 Seconds (9.0-12.0)
[2021-09-12 07:19] LABS: INR 5.8 (0.9-1.1)
[2021-09-12] MEDS: DICLOFENAC SOD 1% GEL 100 GM TUBE EXT SCH ×4 (08:39→21:24)
[2021-09-12] MEDS: TROLAMINE SALICYLATE 10% CRM 255 APPLN/85 GM TUBE EXT PRN (08:39)
[2021-09-12] MEDS: PHENYTOIN SODIUM ER 100 MG CAP PO SCH ×2 (08:40→21:25)
[2021-09-12] MEDS: BUMETANIDE 1 MG TAB PO SCH ×2 (08:40→21:24)
[2021-09-12] MEDS: lamoTRIgine 25 MG TAB PO SCH ×2 (08:40→21:26)
[2021-09-12] MEDS: DOXYCYCLINE HYCLATE 100 MG CAP PO SCH ×2 (08:40→21:23)
[2021-09-12] MEDS: lamoTRIgine 100 MG TAB PO SCH ×2 (08:41→21:25)
[2021-09-12] MEDS: TROLAMINE SALICYLATE 10% CRM 255 APPLN/85 GM TUBE EXT SCH ×3 (08:41→21:22)
[2021-09-12] MEDS: BACLOFEN 10 MG TAB PO SCH ×3 (08:46→21:23)
[2021-09-12] MEDS: POLYETHYLENE (MIRALAX) 17 GM PACK PO SCH ×2 (08:47→21:21)
--- NOTE | 2021-09-12 09:59 | Billing Data ---
Date of Service September 11, 2021 Coding Level of Care Code 20738 Subseq Hosp Care Lvl 2
--- NOTE | 2021-09-12 11:59 | Electrocardiogram Report ---
Test Reason : Blood Pressure : / mmHG Vent. Rate : 094 BPM Atrial Rate : 094 BPM P-R Int : 138 ms QRS Dur : 092 ms QT Int : 390 ms P-R-T Axes : 039 -10 005 degrees QTc Int : 487 ms Sinus rhythm with Premature atrial complexes Prolonged QT Abnormal ECG When compared with ECG of 02-SEP-2021 13:05, Premature atrial complexes are now Present Inverted T waves have replaced nonspecific T wave abnormality in Inferior leads Confirmed by Toan Burciaga ([id number]) on 09/12/2021 11:58:43 AM Referred By: Anjana Villar Confirmed By:Toan Burciaga
[2021-09-12] MEDS ORDERED: WARFARIN SOD 2.5 MG TAB PO ONE (16:00)
--- NOTE | 2021-09-12 22:08 | Billing Data ---
Date of Service September 12, 2021 Coding Level of Care Code 12930 Subseq Hosp Care Lvl 2
[2021-09-12] MEDS: LORazepam 1 MG TAB PO PRN (23:29)
[2021-09-12] MEDS: ONDANSETRON INJ 2 MG/ML 2 ML VIAL IV PRN ×2 (23:29→23:31)
[2021-09-13] MEDS: ACETAMINOPHEN 500 MG TAB PO SCH ×3 (03:23→17:59)
--- NOTE | 2021-09-13 06:37 | Hospitalist Progress Note ---
Date of Service September 13, 2021 Assessment & Plan (1) Cellulitis: Plan: Balbir is a 65-year-old male with history of AVANI (unable to tolerate CPAP), pHTN, and prior DVTs who presented with bilateral lower extremity cellulitis that did not respond to outpatient therapy Leukocytosis - WBC slowly trending up since being switched to doxy and at 17 today - Legs seem to only have chronic changes and not looking concerning for infection at this point - UA today with cloudy appearance, 1+ protein, 2+ ketones, 2+ bilirubin, trace leuk esterase --he does not report any urinary discomfort, though he is disoriented and reports LBP - Urine culture ordered -- will monitor - CXR showing left basilar and left midlung airspace opacity, may reflect an infectious process - Will order Zosyn for broad coverage as unclear source of current leukocytosis -- likely respiratory vs urinary source and both should be covered with Zosyn - MRSA nares negative so unlikely to be MRSA PNA Bilateral LE Cellulitis (L>R) -- secondary to severe lower extremity peripheral edema causing cracks in the skin and weeping - Previously on Augmentin in outpatient setting (x2 days) -- unclear if true treatment failure - s/p Dapto/Zosyn -> CFTX for total of 5 days - Transitioned to doxycycline on 09/07 -- white count increasing since switching to doxy - Continue compression, elevation - WOCN following - appreciate insight, recommendations Lower Extremity Edema -- improving with diuresis - With severe lower extremity edema much worse his thinks over the last few months, but he has always had larger legs. Review of his chart shows that he has gained 21 kg in the last 7 months of body weight. - Echocardiogram from 07/2020 shows preserved LV EF 55-60%. Possibly contributory from AVANI. No proteinuria, serum albumin not severely decreased. - Suspect home Lasix regimen was inadequate, based on significant edema and the above discovered at admission - Diuresed adequately with IV Lasix --> PO Bumex - Continue Bumex 1mg b.i.d. - Low-sodium diet, compression stockings, elevation, as above - Monitor BMP Lower Extremity Pain - Suspect secondary to the above issues, as well as deconditioning, muscle spasm - In setting of previous L-sided tumor resection, possible this may represent spasticity too - Continue PT, topical NSAIDs, Bengay - Baclofen 5mg t.i.d. - can increase by 5mg q3d towards max dose of 80mg if helping. Seems to be responding well. Encephalopathy - Suspect was previously metabolic in setting on ongoing cellulitis, but also likely contributory from chronic memory impairment - History of meningitis noted - no signs or active concern for this at this time - Continue to monitor cognitive status for now -- patient seeming somewhat confused today but unclear how close to baseline this is History of Brain Cancer - Status post 2 resections of brain tumor, with residual left-sided hemiparesis after second surgery Epilepsy - Continue home lamotrigine, phenytoin HTN - Stable. Monitor. History of DVT / Chronic Anticoagulation -- INR goal 2-3 - On Coumadin chronically for history of DVT - Supratherapeutic INR: 4.1 -> 6.1 on 09/11 - Today at 5.7 following 2 held doses and completion of doxycycline - Give Warfarin 2.5mg today - Suspect decreased PO intake and doxycycline are culprits for elevated INR and will normalize over next few days Chronic Hemiparesis of L side - Secondary to brain cancer s/p resection - PT, OT HLD - Continue Lipitor AVANI - Patient does not tolerate CPAP, but does have known history of AVANI - Continue to encourage CPAP going forward, especially in setting of b/l LE edema and elevated pulmonary pressures Memory impairment - Supportive care FENa:low Na Code Status:DNR/DNI DVT PPX:DVT prophylaxis-Coumadin PT/OT:consulted Case Management:consulted Dispo: Pending placement at [facility] (2) Peripheral edema: (3) Acute encephalopathy: (4) Hx of brain cancer: (5) Generalized epilepsy: (6) Benign hypertension: (7) Chronic anticoagulation: (8) Hemiparesis of left nondominant side: (9) Dyslipidemia: (10) AVANI (obstructive sleep apnea): (11) Memory impairment: Admission and Anticipated Discharge Date Admission Date: September 02, 2021 Supervising Physician Co-Signing Physician Notes I also saw the patient confirmed gibbs portions of the history and physical examination. I agree with the impression and plan as noted in the resident documentation EXAM 148/92, 118, 18, 37.1, 90% on room air Awake but somewhat confused; sleepy Heart is regular, rate in the mid 80s upon my auscultation Lungs difficult to assess. No focal findings. DATA WBC 17.36, hemoglobin of 1.4, platelet count 336 INR equal 3.0 CRP 14.8 Chest x-ray demonstrates a left basilar and left midlung opacity. A/P Patient with gradually worsening leukocytosis. Examination of the lower extremities in terms of the cellulitis actually looks improved. Remains afebrile. Chest x-ray done today suggestive of infiltrate. Discontinue doxycycline and switch to Zosyn. Else per resident documentation Subjective No acute events overnight. Patient seen this morning. Complaining of back pain and some bilateral lower extremity pain. He is confused about where he is. Only oriented to person. No fever, chills, nausea, vomiting, abdominal pain, chest pain, palpitations, shortness of breath. Review of Systems Review of Systems: per subjective Physical Exam Physical Exam: General: Tired and confused. Alert, oriented only to person HEENT: NCAT. Eyes - Sclera are white, anicteric, and without injection. MMM. No JVD. Cardiac: Normal rate and regular rhythm; S1 and S2 present with no murmurs, rubs, or gallops. Pulmonary: Good respiratory effort with symmetric expansion of the chest. No use of accessory muscles. Lungs were clear to auscultation bilaterally with no crackles or wheezes. Abdominal: Normoactive bowel sounds. Abdomen was soft, nondistended, and non- tender to palpation. Extremities: Examination of the LLE demonstrates erythematous and scaly-like changes over the anterior thigh. 1+ pitting edema. Examination of the R similarly shows erythema, but without scale. Results & Data Results & Data ([facility]) Vital Signs (Past 12 Hours) Vital Signs Temp Pulse Pulse Resp BP Pulse Ox 09/13/21 04:30 37.7 C H 109 H 22 162/109 H 91 09/13/21 01:17 84 09/12/21 23:00 37.1 C 80 20 145/90 H 93 09/12/21 20:05 36.9 C 107 H 20 128/85 92 Resident Activity Tracking Resident Involvement: Resident Care Provided Care Provided: Adult Hospital Medicine (1) Cellulitis Laterality: left Site of cellulitis: extremity Site of cellulitis of extremity: lower extremity Qualified Code(s): L03.116 - Cellulitis of left lower limb (2) Hemiparesis of left nondominant side Hemiparesis etiology: unspecified Qualified Code(s): G81.94 - Hemiplegia, unspecified affecting left nondominant side
[2021-09-13 07:51] LABS: Prothrombin Time 27.7 Seconds (9.0-12.0)
[2021-09-13] MEDS: lamoTRIgine 100 MG TAB PO SCH ×2 (08:06→21:07)
[2021-09-13] MEDS: DOXYCYCLINE HYCLATE 100 MG CAP PO SCH (08:06)
[2021-09-13] MEDS: lamoTRIgine 25 MG TAB PO SCH ×2 (08:06→21:10)
[2021-09-13] MEDS: bisacodyL 5 MG TABEC PO PRN (08:06)
[2021-09-13] MEDS: PHENYTOIN SODIUM ER 100 MG CAP PO SCH ×2 (08:06→21:08)
[2021-09-13] MEDS: DICLOFENAC SOD 1% GEL 100 GM TUBE EXT SCH ×4 (08:07→21:04)
[2021-09-13] MEDS: TROLAMINE SALICYLATE 10% CRM 255 APPLN/85 GM TUBE EXT SCH ×3 (08:07→21:12)
[2021-09-13] MEDS: BUMETANIDE 1 MG TAB PO SCH ×2 (08:07→21:08)
[2021-09-13] MEDS: BACLOFEN 10 MG TAB PO SCH ×3 (08:07→21:08)
[2021-09-13] MEDS: POLYETHYLENE (MIRALAX) 17 GM PACK PO SCH ×2 (08:08→21:10)
[2021-09-13 09:25] LABS: Basophils # (auto) 0.02 K/uL (0-0.2); Basophils % (auto) 0.1 %; Hematocrit (blood only) 34.2 % (42-52); Hemoglobin 11.4 g/dL (14.0-18.0); Immature Granulocytes # (auto) 0.08 K/uL (0.00-0.02); Immature Granulocytes % (auto) 0.5 %; Lymphocytes # (auto) 0.68 K/uL (1.2-3.4); Lymphocytes % (auto) 3.9 %; Mean Corpuscular Hemoglobin 32.9 pg (25-34); Mean Corpuscular Hgb Conc 33.3 g/dL (32-36); Mean Corpuscular Volume 98.8 fL (80-100); Mean Platelet Volume 9.3 fL (7.4-10.4); Monocytes # (auto) 1.07 K/uL (0.11-0.59); Monocytes % (auto) 6.2 %; Neutrophils # (auto) 15.51 K/uL (1.4-6.5); Neutrophils % (auto) 89.3 %; Platelet Count 336 K/uL (130-400); RDW Coefficient of Variation 13.4 % (11.5-14.5); RDW Standard Deviation 48.4 fL (36.4-46.3); Red Blood Count 3.46 M/uL (4.7-6.1); White Blood Count 17.36 K/uL (4.8-10.8)
--- NOTE | 2021-09-13 11:12 | XRay Report ---
XR chest 1V portable CLINICAL HISTORY: Cough. Evaluate for pneumonia. COMPARISON STUDY: Chest radiograph September 05, 2021. FINDINGS: Lung volumes are normal. There is no pneumothorax or pleural effusion. Linear left basilar opacity reflects atelectasis. There is also suspected left lower lung retrocardiac opacity. There is minimal left midlung opacity. Right lung is clear. Cardiomediastinal silhouette is stable. There is n o evidence for pulmonary edema. Incidental note is made of a healed proximal left clavicular fracture . IMPRESSION: Left basilar and left midlung airspace opacity. This may reflect an infectious process. Radiographic follow-up to ensure resolution is recommended. ACT 112: Negative or not required by law. Electronically signed by: Jd Gonzalez M.D. 09/13/2021 11:11 AM
[2021-09-13] MEDS ORDERED: PIPERACILL/TAZOBAC CONSULT ACTIVE PRN (11:40)
[2021-09-13] MEDS ORDERED: PIPERACILLIN/TAZOBACTAM 3.375 GM in DEXTROSE 5% 100 ML IV ONE (12:00)
[2021-09-13] MEDS: oxyCODONE HCL IR 5 MG TAB (IMMEDIATE RELEASE) PO PRN ×2 (12:23→22:52)
[2021-09-13 12:30] LABS: Appearance Urine Cloudy (Clear); Blood Urine Negative (Negative); Color Urine Dark Yellow; Glucose Urine UA Negative (Negative); Ketones Urine 2+ (Negative); Leukocyte Esterase Urine Trace (Negative); Nitrite Urine Negative (Negative); Protein Urine 1+ (Negative); Specific Gravity Urine 1.037 (1.000-1.030); Urobilinogen Urine Negative (Negative)
[2021-09-13 12:52] LABS: Bilirubin Urine 2+ (Negative)
[2021-09-13 13:07] LABS: Mucus Urine Present (None Prsent)
[2021-09-13 13:09] LABS: Bacteria Urine Automated 1+ (Negative)
[2021-09-13] MEDS ORDERED: MoRPHine SULFATE 2 MG/ML CARP IV STA (16:32)
[2021-09-13] MEDS: PIPERACILLIN/TAZOBACTAM 3.375 GM in DEXTROSE 5% 100 ML IV SCH (17:59)
[2021-09-13] MEDS ORDERED: CEFDINIR 300 MG CAP PO SCH (21:00)
[2021-09-14] MEDS: PIPERACILLIN/TAZOBACTAM 3.375 GM in DEXTROSE 5% 100 ML IV SCH ×3 (02:18→17:04)
[2021-09-14] MEDS: ACETAMINOPHEN 500 MG TAB PO SCH ×3 (02:23→17:04)
[2021-09-14 06:18] LABS: Basophils # (auto) 0.02 K/uL (0-0.2); Basophils % (auto) 0.1 %; Eosinophils # (auto) 0.04 K/uL (0-0.5); Eosinophils % (auto) 0.3 %; Hematocrit (blood only) 30.2 % (42-52); Hemoglobin 10.1 g/dL (14.0-18.0); Immature Granulocytes # (auto) 0.06 K/uL (0.00-0.02); Immature Granulocytes % (auto) 0.4 %; Lymphocytes # (auto) 1.08 K/uL (1.2-3.4); Mean Corpuscular Hemoglobin 33.1 pg (25-34); Mean Corpuscular Hgb Conc 33.4 g/dL (32-36); Mean Platelet Volume 9.2 fL (7.4-10.4); Monocytes # (auto) 1.71 K/uL (0.11-0.59); Monocytes % (auto) 11.1 %; Neutrophils # (auto) 12.49 K/uL (1.4-6.5); Neutrophils % (auto) 81.1 %; Platelet Count 323 K/uL (130-400); RDW Coefficient of Variation 13.9 % (11.5-14.5); RDW Standard Deviation 50.1 fL (36.4-46.3); Red Blood Count 3.05 M/uL (4.7-6.1)
[2021-09-14 06:29] LABS: Prothrombin Time 28.1 Seconds (9.0-12.0)
[2021-09-14 07:00] LABS: BUN Creatinine Ratio 26.4 (10-20); Calcium 9.3 mg/dl (8.5-10.1); Creatinine Clr Calc Pharmacy 83.8 ml/min; Est GFR (African American) 87.5 ml/min; Est GFR (Non-African American) 75.5 ml/min; Potassium 3.3 mmol/L (3.5-5.1)
[2021-09-14] MEDS ORDERED: POTASSIUM CHLORIDE CRTAB 20 MEQ TABCR PO STA (07:11)
[2021-09-14] MEDS: BUMETANIDE 1 MG TAB PO SCH ×2 (07:29→21:09)
[2021-09-14] MEDS: lamoTRIgine 100 MG TAB PO SCH ×2 (07:30→21:09)
[2021-09-14] MEDS: PHENYTOIN SODIUM ER 100 MG CAP PO SCH ×2 (07:31→21:09)
[2021-09-14] MEDS: lamoTRIgine 25 MG TAB PO SCH ×2 (07:31→21:09)
[2021-09-14] MEDS: POLYETHYLENE (MIRALAX) 17 GM PACK PO SCH ×3 (07:31→21:27)
[2021-09-14] MEDS: BACLOFEN 10 MG TAB PO SCH ×3 (07:32→21:09)
[2021-09-14] MEDS: TROLAMINE SALICYLATE 10% CRM 255 APPLN/85 GM TUBE EXT SCH ×3 (07:32→21:10)
[2021-09-14] MEDS: DICLOFENAC SOD 1% GEL 100 GM TUBE EXT SCH ×4 (07:32→21:10)
--- NOTE | 2021-09-14 07:46 | Hospitalist Progress Note ---
Date of Service September 14, 2021 Assessment & Plan (1) Cellulitis: Plan: Balbir is a 65-year-old male with history of AVANI (unable to tolerate CPAP), pHTN, and prior DVTs who presented with bilateral lower extremity cellulitis that did not respond to outpatient therapy Leukocytosis - improving, likely PNA as cause - WBC slowly trending up since being switched to doxy - Legs seem to only have chronic changes and not looking concerning for infection at this point - UA with cloudy appearance, 1+ protein, 2+ ketones, 2+ bilirubin, trace leuk esterase --he does not report any urinary discomfort, though he is disoriented and reports LBP - Urine culture no growth at 24h with final report pending - CXR showing left basilar and left midlung airspace opacity, may reflect an infectious process - Continue Zosyn for broad coverage as unclear source of current leukocytosis -- likely respiratory at this point - MRSA nares negative so unlikely to be MRSA PNA Bilateral LE Cellulitis (L>R) -- secondary to severe lower extremity peripheral edema causing cracks in the skin and weeping - Previously on Augmentin in outpatient setting (x2 days) -- unclear if true treatment failure - s/p Dapto/Zosyn -> CFTX for total of 5 days - Transitioned to doxycycline on 09/07 -- white count increasing since switching to doxy - Now on Zosyn as above for PNA -- cellulitis seems resolved at this point - Continue compression, elevation - WOCN following - appreciate insight, recommendations Lower Extremity Edema -- improving with diuresis - With severe lower extremity edema much worse his thinks over the last few months, but he has always had larger legs. Review of his chart shows that he has gained 21 kg in the last 7 months of body weight. - Echocardiogram from 07/2020 shows preserved LV EF 55-60%. Possibly contributory from AVANI. No proteinuria, serum albumin not severely decreased. - Suspect home Lasix regimen was inadequate, based on significant edema and the above discovered at admission - Diuresed adequately with IV Lasix --> PO Bumex - Continue Bumex 1mg b.i.d. - Low-sodium diet, compression stockings, elevation, as above - Monitor BMP Lower Extremity Pain - Suspect secondary to the above issues, as well as deconditioning, muscle spasm - In setting of previous L-sided tumor resection, possible this may represent spasticity too - Continue PT, topical NSAIDs, Bengay - Baclofen 5mg t.i.d. - can increase by 5mg q3d towards max dose of 80mg if helping. Seems to be responding well. Encephalopathy - Suspect was previously metabolic in setting on ongoing cellulitis, but also likely contributory from chronic memory impairment - History of meningitis noted - no signs or active concern for this at this time - Continue to monitor cognitive status for now -- confusion seems to be consistent with baseline and improves as day goes on when patient more awake History of Brain Cancer - Status post 2 resections of brain tumor, with residual left-sided hemiparesis after second surgery Epilepsy - Continue home lamotrigine, phenytoin HTN - Stable. Monitor. History of DVT / Chronic Anticoagulation -- INR goal 2-3 - On Coumadin chronically for history of DVT - Supratherapeutic INR: 4.1 -> 6.1 on 09/11 - Today at 3.0 - Give Warfarin 2mg (lower than usual dose due to receiving antibiotics) - Monitor INR and adjust dose accordingly Chronic Hemiparesis of L side - Secondary to brain cancer s/p resection - PT/OT HLD - Continue Lipitor AVANI - Patient does not tolerate CPAP, but does have known history of AVANI - Continue to encourage CPAP going forward, especially in setting of b/l LE edema and elevated pulmonary pressures Memory impairment - Supportive care FEN/GI: Low Sodium Code Status:DNR/DNI DVT PPX: Anticoagulated with Coumadin, monitoring INR Dispo: Pending placement at [facility] (2) Peripheral edema: (3) Acute encephalopathy: (4) Hx of brain cancer: (5) Generalized epilepsy: (6) Benign hypertension: (7) Chronic anticoagulation: (8) Hemiparesis of left nondominant side: (9) Dyslipidemia: (10) AVANI (obstructive sleep apnea): (11) Memory impairment: Admission and Anticipated Discharge Date Admission Date: September 02, 2021 Supervising Physician Co-Signing Physician Notes I also saw the patient confirmed gibbs portions of the history and physical examination. I agree with the impression and plan as noted in the resident documentation. Patient is seen midmorning. He is sleeping. When he first awakens, he seems confused. However, after even a few minutes to awaken and reorient, he becomes conversational and much more oriented. EXAM 145/86, 101, 20, 37.6, 91% on room air Heart is regular, rate. Lungs difficult to assess. No focal findings. DATA WBC 15.4, slightly down from yesterday. Hemoglobin 10.1. INR equals 3.0 Sodium 138, potassium 3.3, BUN 27, creatinine 1.04. A/P Pneumonia Continue piperacillin/tazobactam Repeat chest x-ray tomorrow morning Cellulitis This was his admitting diagnosis, although appears to have resolved Sedation Some of this may be medication related. We will decrease baclofen to twice daily and discontinue oxycodone Favor Tylenol as needed Else per resident documentation Subjective Seen at bedside. Confused upon awaking initially but mentation improvinging as conversation continued. He reported mild LLE pain. When asked about SOB or cough, says he is unsure. Denies CP, palp, n/v, abd pain, diarrhea, fever, chills. Review of Systems Review of Systems: per subjective Physical Exam Physical Exam: General: Tired and confused. Alert, oriented to person and place. HEENT: NCAT. Eyes - Sclera are white, anicteric, and without injection. MMM. No JVD. Cardiac: Normal rate and regular rhythm; S1 and S2 present with no murmurs, rubs, or gallops. Pulmonary: Good respiratory effort with symmetric expansion of the chest. No use of accessory muscles. Lungs were clear to auscultation bilaterally with no crackles or wheezes. Abdominal: Normoactive bowel sounds. Abdomen was soft, nondistended, and non- tender to palpation. Extremities: Examination of the LLE demonstrates erythematous and scaly-like changes over the anterior thigh. 1+ pitting edema. Examination of the R similarly shows erythema, but without scale. Results & Data Results & Data ([facility]) Vital Signs (Past 12 Hours) Vital Signs Temp Pulse Pulse Resp BP Pulse Ox 09/14/21 07:41 36.9 C 101 H 20 126/80 93 09/14/21 07:21 112 H 09/13/21 23:40 37.8 C H 115 H 22 141/86 H 91 09/13/21 22:20 118 H Resident Activity Tracking Resident Involvement: Resident Care Provided Care Provided: Adult Hospital Medicine (1) Cellulitis Laterality: left Site of cellulitis: extremity Site of cellulitis of extremity: lower extremity Qualified Code(s): L03.116 - Cellulitis of left lower limb (2) Hemiparesis of left nondominant side Hemiparesis etiology: unspecified Qualified Code(s): G81.94 - Hemiplegia, unspecified affecting left nondominant side
[2021-09-14] MEDS: SODIUM CHLORIDE 0.9% 1000ML 1,000 ML IV SCH (13:50)
[2021-09-14] MEDS ORDERED: WARFARIN SOD 2 MG TAB PO SCH (16:00)
[2021-09-15] MEDS: ACETAMINOPHEN 500 MG TAB PO SCH ×3 (01:39→16:51)
[2021-09-15] MEDS: PIPERACILLIN/TAZOBACTAM 3.375 GM in DEXTROSE 5% 100 ML IV SCH ×3 (01:40→16:52)
[2021-09-15] MEDS: SODIUM CHLORIDE 0.9% 1000ML 1,000 ML IV SCH (03:51)
[2021-09-15 06:04] LABS: Basophils # (auto) 0.02 K/uL (0-0.2); Basophils % (auto) 0.1 %; Eosinophils # (auto) 0.12 K/uL (0-0.5); Eosinophils % (auto) 0.9 %; Hematocrit (blood only) 28.5 % (42-52); Hemoglobin 9.4 g/dL (14.0-18.0); Immature Granulocytes # (auto) 0.06 K/uL (0.00-0.02); Immature Granulocytes % (auto) 0.4 %; Lymphocytes # (auto) 1.23 K/uL (1.2-3.4); Lymphocytes % (auto) 8.8 %; Mean Corpuscular Hemoglobin 32.5 pg (25-34); Mean Corpuscular Volume 98.6 fL (80-100); Mean Platelet Volume 9.4 fL (7.4-10.4); Monocytes # (auto) 1.31 K/uL (0.11-0.59); Monocytes % (auto) 9.4 %; Neutrophils # (auto) 11.17 K/uL (1.4-6.5); Neutrophils % (auto) 80.4 %; Platelet Count 293 K/uL (130-400); RDW Coefficient of Variation 14.2 % (11.5-14.5); Red Blood Count 2.89 M/uL (4.7-6.1); White Blood Count 13.91 K/uL (4.8-10.8)
[2021-09-15 06:20] LABS: INR 5.1 (0.9-1.1); Prothrombin Time 45.2 Seconds (9.0-12.0)
[2021-09-15 06:30] LABS: BUN Creatinine Ratio 28.6 (10-20); Calcium 8.9 mg/dl (8.5-10.1); Creatinine Clr Calc Pharmacy 90.6 ml/min; Est GFR (African American) 96.4 ml/min; Est GFR (Non-African American) 83.2 ml/min; Potassium 3.5 mmol/L (3.5-5.1)
--- NOTE | 2021-09-15 07:04 | Hospitalist Progress Note ---
Date of Service September 15, 2021 Assessment & Plan (1) Cellulitis: Plan: Balbir is a 65-year-old male with history of AVANI (unable to tolerate CPAP), pHTN, and prior DVTs who presented with bilateral lower extremity cellulitis that did not respond to outpatient therapy Pneumonia - WBC trending down steadily since starting on Zosyn - CXR 09/13 showing left basilar and left midlung airspace opacity, may reflect an infectious process - CXR 09/15 with interval progression of the left mid to lower lung zone density, likely combination of small left pleural effusion and airspace opacity - Imaging results may be slightly lagging clinical improvement as leukocytosis improving and afebrile with stable sats and no SOB/cough - Could consider retesting for COVID-19 - Continue Zosyn - Repeat CXR in 2 days Bilateral LE Cellulitis (L>R) -- secondary to severe lower extremity peripheral edema causing cracks in the skin and weeping - Previously on Augmentin in outpatient setting (x2 days) -- unclear if true treatment failure - s/p Dapto/Zosyn -> CFTX for total of 5 days - Transitioned to doxycycline on 09/07 -- white count increasing since switching to doxy - Now on Zosyn as above for PNA -- cellulitis seems resolved at this point - Continue compression, elevation - WOCN following - appreciate insight, recommendations Lower Extremity Edema -- stable without significant edema at current time - With severe lower extremity edema much worse his thinks over the last few months, but he has always had larger legs. Review of his chart shows that he has gained 21 kg in the last 7 months of body weight. - Echocardiogram from 07/2020 shows preserved LV EF 55-60%. Possibly contributory from AVANI. No proteinuria, serum albumin not severely decreased. - Suspect home Lasix regimen was inadequate, based on significant edema and the above discovered at admission - Diuresed adequately with IV Lasix --> PO Bumex - Continue Bumex 1mg b.i.d. - Low-sodium diet, compression stockings, elevation, as above - Monitor BMP Lower Extremity Pain - Suspect secondary to the above issues, as well as deconditioning, muscle spasm - In setting of previous L-sided tumor resection, possible this may represent spasticity too - Continue PT, topical NSAIDs, Bengay - Baclofen 5mg decreased to BID from TID to decrease sedation Encephalopathy - resolved - Suspect was previously metabolic in setting on ongoing cellulitis, but also likely contributory from chronic memory impairment - History of meningitis noted - no signs or active concern for this at this time History of Brain Cancer - Status post 2 resections of brain tumor, with residual left-sided hemiparesis after second surgery Epilepsy - Continue home lamotrigine, phenytoin HTN - Stable. Monitor. History of DVT / Chronic Anticoagulation -- INR goal 2-3 - On Coumadin chronically for history of DVT - Supratherapeutic INR: 4.1 -> 6.1 on 09/11 - Today at 3.0 - Give Warfarin 2mg (lower than usual dose due to receiving antibiotics) - Monitor INR and adjust dose accordingly Chronic Hemiparesis of L side - Secondary to brain cancer s/p resection - PT/OT HLD - Continue Lipitor AVANI - Patient does not tolerate CPAP, but does have known history of AVANI - Continue to encourage CPAP going forward, especially in setting of b/l LE edema and elevated pulmonary pressures Memory impairment - Supportive care FEN/GI: Low Sodium Code Status:DNR/DNI DVT PPX: Anticoagulated with Coumadin, monitoring INR Dispo: Pending placement at [facility] (2) Peripheral edema: (3) Acute encephalopathy: (4) Hx of brain cancer: (5) Generalized epilepsy: (6) Benign hypertension: (7) Chronic anticoagulation: (8) Hemiparesis of left nondominant side: (9) Dyslipidemia: (10) AVANI (obstructive sleep apnea): (11) Memory impairment: Admission and Anticipated Discharge Date Admission Date: September 02, 2021 Supervising Physician Co-Signing Physician Notes I also saw the patient confirmed gibbs portions of the history and physical examination. I agree with the impression and plan as noted in the resident documentation. Patient is alert and oriented. Alert and oriented x3; much more conversational than days past. EXAM 134/84, 109, 20, 37.9, 90% on room air Heart is regular, rate. Lungs clear with nonlabored respirations DATA WBC 13.91, continues to trend down. Hemoglobin 9.4. INR 5.1 BUN 28, creatinine 0.96 IMAGING slight progression of the left mid to lower lung zone densities A/P Pneumonia Clinically he looks improved, suspect imaging is lagging slightly behind Continue piperacillin/tazobactam Repeat chest x-ray in 2 days Cellulitis This was his admitting diagnosis, although appears to have resolved Sedation This seems to have improved, suspect was secondary to medications We will decrease baclofen to twice daily and discontinue oxycodone Favor Tylenol as needed Else per resident documentation Subjective Patient seen at bedside. Initially in the morning quite groggy and confused. Not able to obtain any significant history. Seen again in the afternoon. At this time patient is alert and oriented x3 and able to communicate. Reports that he feels fatigued and sore from being in bed. Wishes he could be up and about a little more. Denies shortness of breath, cough, fever, chills, nausea, vomiting, abdominal pain. Review of Systems Review of Systems: per subjective Physical Exam Physical Exam: General: Tired and confused. Alert, oriented to person and place. HEENT: NCAT. Eyes - Sclera are white, anicteric, and without injection. MMM. Cardiac: Normal rate and regular rhythm; S1 and S2 present with no murmurs, rubs, or gallops. Pulmonary: Good respiratory effort with symmetric expansion of the chest. No use of accessory muscles. Lungs were clear to auscultation bilaterally with no crackles or wheezes. Abdominal: Normoactive bowel sounds. Abdomen was soft, nondistended, and non- tender to palpation. Extremities: BLE with chronic skin changes,. Left with some scaliness. No open wounds on either leg. No redness, tenderness, or swelling noted. Results & Data Results & Data ([facility]) Vital Signs (Past 12 Hours) Vital Signs Temp Pulse Pulse Resp BP Pulse Ox 09/15/21 03:48 36.9 C 93 H 18 122/70 94 09/14/21 23:59 96 H 09/14/21 23:18 37 C 104 H 18 119/67 92 09/14/21 19:25 37.1 C 118 H 18 123/68 90 Resident Activity Tracking Resident Involvement: Resident Care Provided Care Provided: Adult Hospital Medicine (1) Cellulitis Laterality: left Site of cellulitis: extremity Site of cellulitis of extremity: lower extremity Qualified Code(s): L03.116 - Cellulitis of left lower limb (2) Hemiparesis of left nondominant side Hemiparesis etiology: unspecified Qualified Code(s): G81.94 - Hemiplegia, unspecified affecting left nondominant side
[2021-09-15] MEDS: PHENYTOIN SODIUM ER 100 MG CAP PO SCH ×2 (08:15→20:37)
[2021-09-15] MEDS: lamoTRIgine 100 MG TAB PO SCH ×2 (08:15→20:39)
[2021-09-15] MEDS: BACLOFEN 10 MG TAB PO SCH ×2 (08:15→20:38)
[2021-09-15] MEDS: DICLOFENAC SOD 1% GEL 100 GM TUBE EXT SCH ×4 (08:16→20:38)
[2021-09-15] MEDS: BUMETANIDE 1 MG TAB PO SCH ×2 (08:16→20:37)
[2021-09-15] MEDS: lamoTRIgine 25 MG TAB PO SCH ×2 (08:16→20:39)
[2021-09-15] MEDS: TROLAMINE SALICYLATE 10% CRM 255 APPLN/85 GM TUBE EXT SCH ×3 (08:17→20:40)
[2021-09-15] MEDS: POLYETHYLENE (MIRALAX) 17 GM PACK PO SCH ×2 (08:18→20:40)
--- NOTE | 2021-09-15 09:01 | XRay Report ---
XR chest 1V portable HISTORY: Shortness of breath. pneumonia COMPARISON: Chest 09/13/2021. FINDINGS: Progressive left mid to lower lung zone density likely representing a progressive pleural e ffusion and left basilar densities. No pneumothorax. There are low lung volumes. The heart remains mi ldly enlarged. No evidence for pulmonary edema. The right lung is clear. IMPRESSION: Interval progression of the left mid to lower lung zone density likely representing a combination of a small left pleural effusion and airspace opacity. Radiographic follow-up recommended to ensure reso lution. ACT 112: Negative or not required by law. Electronically signed by: Tal Harris M.D. 09/15/2021 8:59 AM
[2021-09-15] MEDS: oxyCODONE HCL IR 5 MG TAB (IMMEDIATE RELEASE) PO PRN (20:36)
[2021-09-16] MEDS: ACETAMINOPHEN 500 MG TAB PO SCH ×3 (01:42→17:31)
[2021-09-16] MEDS: PIPERACILLIN/TAZOBACTAM 3.375 GM in DEXTROSE 5% 100 ML IV SCH ×3 (01:44→17:32)
[2021-09-16 07:03] LABS: Basophils # (auto) 0.02 K/uL (0-0.2); Basophils % (auto) 0.1 %; Eosinophils % (auto) 1.5 %; Hematocrit (blood only) 27.8 % (42-52); Hemoglobin 9.2 g/dL (14.0-18.0); Immature Granulocytes # (auto) 0.04 K/uL (0.00-0.02); Immature Granulocytes % (auto) 0.3 %; Lymphocytes # (auto) 1.11 K/uL (1.2-3.4); Lymphocytes % (auto) 8.2 %; Mean Corpuscular Hgb Conc 33.1 g/dL (32-36); Mean Corpuscular Volume 99.6 fL (80-100); Mean Platelet Volume 8.7 fL (7.4-10.4); Monocytes # (auto) 1.16 K/uL (0.11-0.59); Monocytes % (auto) 8.6 %; Neutrophils # (auto) 11.03 K/uL (1.4-6.5); Neutrophils % (auto) 81.3 %; Platelet Count 298 K/uL (130-400); RDW Coefficient of Variation 14.1 % (11.5-14.5); Red Blood Count 2.79 M/uL (4.7-6.1); White Blood Count 13.56 K/uL (4.8-10.8)
[2021-09-16 07:25] LABS: Prothrombin Time 52.7 Seconds (9.0-12.0)
[2021-09-16 07:32] LABS: BUN Creatinine Ratio 26.2 (10-20); Calcium 8.8 mg/dl (8.5-10.1); Creatinine Clr Calc Pharmacy 96.4 ml/min; Est GFR (African American) 104.2 ml/min; Est GFR (Non-African American) 89.9 ml/min; Potassium 3.5 mmol/L (3.5-5.1)
--- NOTE | 2021-09-16 08:00 | Hospitalist Progress Note ---
Date of Service September 16, 2021 Assessment & Plan (1) Cellulitis: Plan: Balbir is a 65-year-old male with history of AVANI (unable to tolerate CPAP), pHTN, and prior DVTs who presented with bilateral lower extremity cellulitis that did not respond to outpatient therapy Anemia, tachycardia - Patient's Hgb has steadily decreased for past few days with supratherapeutic INR - He has remained overall stable but has regularly been tachycardic - Possible may be myelosuppression from illness - No obvious signs of bleeding but will FOBT for possibility of a slow GI bleed - KUB ordered to evaluate as has been constipated (last BM 09/07) - Monitor CBC and hemodynamic status Pneumonia - WBC trending down steadily since starting on Zosyn - CXR 09/13 showing left basilar and left midlung airspace opacity, may reflect an infectious process - CXR 09/15 with interval progression of the left mid to lower lung zone density, likely combination of small left pleural effusion and airspace opacity - Imaging results may be slightly lagging clinical improvement as leukocytosis improving and afebrile with stable sats and no SOB/cough - Could consider retesting for COVID-19 - Continue Zosyn - Will repeat CXR 09/17 Bilateral LE Cellulitis (L>R) -- secondary to severe lower extremity peripheral edema causing cracks in the skin and weeping - Previously on Augmentin in outpatient setting (x2 days) -- unclear if true treatment failure - s/p Dapto/Zosyn -> CFTX for total of 5 days - Transitioned to doxycycline on 09/07 -- white count increasing since switching to doxy - Now on Zosyn as above for PNA -- cellulitis seems resolved at this point - Continue compression, elevation - WOCN following - appreciate insight, recommendations Lower Extremity Edema -- stable without significant edema at current time - With severe lower extremity edema much worse his thinks over the last few months, but he has always had larger legs. Review of his chart shows that he has gained 21 kg in the last 7 months of body weight. - Echocardiogram from 07/2020 shows preserved LV EF 55-60%. Possibly co ntributory from AVANI. No proteinuria, serum albumin not severely decreased. - Suspect home Lasix regimen was inadequate, based on significant edema and the above discovered at admission - Diuresed adequately with IV Lasix --> PO Bumex - Continue Bumex 1mg b.i.d. - Low-sodium diet, compression stockings, elevation, as above - Monitor BMP Lower Extremity Pain - Suspect secondary to the above issues, as well as deconditioning, muscle spasm - In setting of previous L-sided tumor resection, possible this may represent spasticity too - Continue PT, topical NSAIDs, Bengay - Baclofen 5mg decreased to BID from TID to decrease sedation - Oxycodone had been held to decrease sedation as well but required overnight -- will reorder PRN but decrease dose to 2.5mg Encephalopathy - resolved - Suspect was previously metabolic in setting on ongoing cellulitis, but also likely contributory from chronic memory impairment - History of meningitis noted - no signs or active concern for this at this time History of Brain Cancer - Status post 2 resections of brain tumor, with residual left-sided hemiparesis after second surgery Epilepsy - Continue home lamotrigine, phenytoin HTN - Stable. Monitor. History of DVT / Chronic Anticoagulation -- INR goal 2-3 - On Coumadin chronically for history of DVT - Supratherapeutic INR: 4.1 -> 6.1 on 09/11 - Today at 6.0 - Hold warfarin - Monitor INR and adjust dose accordingly Chronic Hemiparesis of L side - Secondary to brain cancer s/p resection - PT/OT HLD - Continue Lipitor AVANI - Patient does not tolerate CPAP, but does have known history of AVANI - Continue to encourage CPAP going forward, especially in setting of b/l LE edema and elevated pulmonary pressures Memory impairment - Supportive care FEN/GI: Low Sodium Code Status:DNR/DNI DVT PPX: Anticoagulated with Coumadin, monitoring INR Dispo: Pending placement at [facility] (2) Peripheral edema: (3) Acute encephalopathy: (4) Hx of brain cancer: (5) Generalized epilepsy: (6) Benign hypertension: (7) Chronic anticoagulation: (8) Hemiparesis of left nondominant side: (9) Dyslipidemia: (10) AVANI (obstructive sleep apnea): (11) Memory impairment: Admission and Anticipated Discharge Date Admission Date: September 02, 2021 Supervising Physician Co-Signing Physician Notes I also saw the patient confirmed gibbs portions of the history and physical examination. I agree with the impression and plan as noted in the resident documentation. Patient had some pain overnight and did receive a dose of oxycodone. He is little bit more sleepy today and less conversational. He is alert and oriented and does answer questions appropriately, again seems fairly sleepy in doing so. EXAM 130/91, 97, 22, 36.9, 93% room air Heart is regular, rate. Lungs clear with nonlabored respirations DATA Hemoglobin 9.2, WBC 13.56 INR 6.0 BUN 24, creatinine 0.9 IMAGING KUB shows mild fecal retention and nonobstructive abdominal bowel gas pattern. A/P Pneumonia Clinically he looks improved, suspect imaging is lagging slightly behind Continue piperacillin/tazobactam Repeat chest x-ray tomorrow Supratherapeutic INR Hold Coumadin No evidence of overt bleeding Monitor hemoglobin Constipation KUB shows mild fecal burden Bowel regimen Cellulitis This was his admitting diagnosis, although appears to have resolved Sedation This seems to have improved, suspect was secondary to medications We will decrease baclofen to twice daily and discontinue oxycodone Favor Tylenol as needed Else per resident documentation Subjective Seen at bedside. Sleeping comfortably and awakens to voice. Appropriately answer ing questions. Had pain in left leg overnight, which responded to restarting oxycodone. Denies SOB, cough, abd pain, CP, palp, n/v, diarrhea. Review of Systems Review of Systems: per subjective Physical Exam Physical Exam: General: Tired and confused. Alert, oriented to person and place. HEENT: NCAT. Eyes - Sclera are white, anicteric, and without injection. MMM. Cardiac: Normal rate and regular rhythm; S1 and S2 present with no murmurs, rubs, or gallops. Pulmonary: Good respiratory effort with symmetric expansion of the chest. No use of accessory muscles. Lungs were clear to auscultation bilaterally with no crackles or wheezes. Abdominal: Normoactive bowel sounds. Abdomen was soft, nondistended, and non- tender to palpation. Extremities: BLE with chronic skin changes,. Left with some scaliness. No open wounds on either leg. No redness, tenderness, or swelling noted. Results & Data Results & Data ([place]) Vital Signs (Past 12 Hours) Vital Signs Temp Pulse Pulse Resp BP Pulse Ox 09/16/21 07:49 36.9 C 83 18 148/83 H 91 09/16/21 04:22 36.9 C 108 H 20 135/84 91 09/16/21 00:23 87 09/15/21 23:11 37.3 C 79 18 136/77 94 Resident Activity Tracking Resident Involvement: Resident Care Provided Care Provided: Adult Hospital Medicine (1) Cellulitis Laterality: left Site of cellulitis: extremity Site of cellulitis of extremity: lower extremity Qualified Code(s): L03.116 - Cellulitis of left lower limb (2) Hemiparesis of left nondominant side Hemiparesis etiology: unspecified Qualified Code(s): G81.94 - Hemiplegia, unspecified affecting left nondominant side
[2021-09-16] MEDS: BUMETANIDE 1 MG TAB PO SCH ×2 (08:10→21:05)
[2021-09-16] MEDS: bisacodyL 5 MG TABEC PO PRN (08:10)
[2021-09-16] MEDS: lamoTRIgine 25 MG TAB PO SCH ×2 (08:11→21:06)
[2021-09-16] MEDS: PHENYTOIN SODIUM ER 100 MG CAP PO SCH ×2 (08:11→21:08)
[2021-09-16] MEDS: BACLOFEN 10 MG TAB PO SCH ×2 (08:11→21:03)
[2021-09-16] MEDS: lamoTRIgine 100 MG TAB PO SCH ×2 (08:12→21:07)
[2021-09-16] MEDS: POLYETHYLENE (MIRALAX) 17 GM PACK PO SCH ×3 (08:13→21:10)
[2021-09-16] MEDS: DICLOFENAC SOD 1% GEL 100 GM TUBE EXT SCH ×4 (08:13→21:05)
[2021-09-16] MEDS: TROLAMINE SALICYLATE 10% CRM 255 APPLN/85 GM TUBE EXT SCH ×3 (08:13→21:10)
[2021-09-16] MEDS ORDERED: PANTOprazole 40 MG TAB PO SCH (09:00)
[2021-09-16] MEDS: PANTOprazole 40 MG in SYRINGE 0 ML IV SCH ×2 (09:08→21:09)
[2021-09-16] MEDS ORDERED: oxyCODONE HCL IR 5 MG TAB (IMMEDIATE RELEASE) PO PRN (11:07)
--- NOTE | 2021-09-16 12:01 | XRay Report ---
KUB CLINICAL HISTORY: Constipation. Abdominal discomfort. FINDINGS: 2 AP, portable, supine abdominal radiographs are compared to study dated 07/26/2020 and joaquim elated with abdominal CT dated 10/05/2020. There is a nonobstructed abdominal bowel gas pattern. Mild fecal retention is noted throughout the colon. No evidence of intraperitoneal free air is seen on the se supine views. There are no abnormal abdominal calcifications. The skeletal structures are osteopen ic and appear intact. A left hip arthroplasty is in place. IMPRESSION: Nonobstructed abdominal bowel gas pattern. Electronically signed by: John De La Garza M.D. 09/16/2021 12:00 PM
--- NOTE | 2021-09-16 18:13 | Electrocardiogram Report ---
Test Reason : Blood Pressure : / mmHG Vent. Rate : 118 BPM Atrial Rate : 118 BPM P-R Int : 132 ms QRS Dur : 088 ms QT Int : 364 ms P-R-T Axes : 045 049 009 degrees QTc Int : 510 ms Sinus tachycardia with Premature supraventricular complexes T wave abnormality, consider inferior ischemia Abnormal ECG Confirmed by Maurisio West ([id number]) on 09/16/2021 6:13:16 PM Referred By: Anjana Villar Confirmed By:Yang West
[2021-09-16] MEDS: DOCUSATE SODIUM 100 MG CAP PO SCH (21:05)
[2021-09-17] MEDS: ACETAMINOPHEN 500 MG TAB PO SCH ×3 (00:39→17:31)
[2021-09-17] MEDS: PIPERACILLIN/TAZOBACTAM 3.375 GM in DEXTROSE 5% 100 ML IV SCH ×3 (01:35→17:25)
--- NOTE | 2021-09-17 07:16 | Hospitalist Progress Note ---
Date of Service September 17, 2021 Assessment & Plan (1) Cellulitis: Plan: Balbir is a 65-year-old male with history of AVANI (unable to tolerate CPAP), pHTN, and prior DVTs who presented with bilateral lower extremity cellulitis that did not respond to outpatient therapy Elevated T. Bili, alk phos, transaminases - labs indicative of cholestatic vs infiltrative - T bili 1.5, AST 157, ALT 157, Alk phos 524, INR 7.2 (despite holding warfarin for several days) - Will order gallbladder ultrasound initially to r/o gallbladder pathology -- consider further imaging depending on findings - No obvious medication that could cause this - No current obvious signs of acute liver failure (no jaundice, n/v) -- no obvious signs of encephalopathy as patient responds fairly appropriately, though he seems to have baseline cognitive issues - Monitor closely - Repeat CMP in AM Anemia, tachycardia -- anemia stable - Patient's Hgb has steadily decrease with supratherapeutic INR - He has remained overall stable but has regularly been tachycardic - Possible may be myelosuppression from illness - No obvious signs of bleeding but will FOBT for possibility of a slow GI bleed - KUB ordered to evaluate as has been constipated (last BM 09/07/21) -- showing moderate stool burden - Added docusate, patient already has bisacodyl and Miralax but refusing the latter - 09/17: given dose of Relistor - Monitor CBC and hemodynamic status Pneumonia - WBC trending down steadily since starting on Zosyn - CXR 09/13 showing left basilar and left midlung airspace opacity, may reflect an infectious process - CXR 09/15 with interval progression of the left mid to lower lung zone density, likely combination of small left pleural effusion and airspace opacity - Imaging results may be slightly lagging clinical improvement as leukocytosis improving and afebrile with stable sats and no SOB/cough - CXR 09/17 with no significant interval change in LLL alveolar opacity characteristic of PNA. Small left pleural effusion. - Continue Zosyn Bilateral LE Cellulitis (L>R) -- secondary to severe lower extremity peripheral edema causing cracks in the skin and weeping - Previously on Augmentin in outpatient setting (x2 days) -- unclear if true treatment failure - s/p Dapto/Zosyn -> CFTX for total of 5 days - Transitioned to doxycycline on 09/07 -- white count increasing since switching to doxy - Now on Zosyn as above for PNA -- cellulitis seems resolved at this point - Continue compression, elevation - WOCN following - appreciate insight, recommendations Lower Extremity Edema -- stable without significant edema at current time - With severe lower extremity edema much worse his thinks over the last few months, but he has always had larger legs. Review of his chart shows that he has gained 21 kg in the last 7 months of body weight. - Echocardiogram from 07/2020 shows preserved LV EF 55-60%. Possibly contributory from AVANI. No proteinuria, serum albumin not severely decreased. - Suspect home Lasix regimen was inadequate, based on significant edema and the above discovered at admission - Diuresed adequately with IV Lasix --> PO Bumex - Continue Bumex 1mg b.i.d. - Low-sodium diet, compression stockings, elevation, as above - Monitor BMP Lower Extremity Pain - Suspect secondary to the above issues, as well as deconditioning, muscle spasm - In setting of previous L-sided tumor resection, possible this may represent spasticity too - Continue PT, topical NSAIDs, Bengay - Baclofen 5mg decreased to BID from TID to decrease sedation - Oxycodone had been held to decrease sedation as well but required overnight -- reorder PRN but decrease dose to 2.5mg Encephalopathy - resolved - Suspect was previously metabolic in setting on ongoing cellulitis, but also likely contributory from chronic memory impairment - History of meningitis noted - no signs or active concern for this at this time History of Brain Cancer - Status post 2 resections of brain tumor, with residual left-sided hemiparesis after second surgery Epilepsy - Continue home lamotrigine, phenytoin HTN - Stable. Monitor. History of DVT / Chronic Anticoagulation -- INR goal 2-3 - On Coumadin chronically for history of DVT - Supratherapeutic INR: 4.1 -> 6.1 on 09/11 - Today at 7.2 - Hold warfarin - Monitor INR and adjust dose accordingly Chronic Hemiparesis of L side - Secondary to brain cancer s/p resection - PT/OT HLD - Continue Lipitor AVANI - Patient does not tolerate CPAP, but does have known history of AVANI - Continue to encourage CPAP going forward, especially in setting of b/l LE edema and elevated pulmonary pressures Memory impairment - Supportive care FEN/GI: Low Sodium Code Status: DNR/DNI DVT PPX: Anticoagulated with Coumadin, monitoring INR Dispo: Pending placement at [place] [facility] per CM (2) Peripheral edema: (3) Acute encephalopathy: (4) Hx of brain cancer: (5) Generalized epilepsy: (6) Benign hypertension: (7) Chronic anticoagulation: (8) Hemiparesis of left nondominant side: (9) Dyslipidemia: (10) AVANI (obstructive sleep apnea): (11) Memory impairment: Admission and Anticipated Discharge Date Admission Date: September 02, 2021 Supervising Physician Co-Signing Physician Notes Attending attestation Pt seen and examined in concert with Dr. Henry. In agreement with the documented findings as noted in the resident documentation with any exceptions or additions as noted here. On examination, S1/S2 nl RRR no MCG. CTAB. Abd NT/ND BS+ve SUpratherapeutic INR with transaminitis - uptrending - holding warfarin, CMP todaywith mild elevation in function with US pending - consider further evaluation vs. consult based on results Pneumonia - continue zosyn w/ improving CXR Constipation - significant BM with relastor, continue bowel regimen Cellulitis - resolved Else see resident documentation as noted. Subjective Seen at bedside this AM. He reports no issues currently except for ongoing back pain that travels down his left leg. He denies CP, palp, SOB, abd pain, fever, chills. Review of Systems Review of Systems: per subjective Physical Exam Physical Exam: General: Alert, oriented to person and place. HEENT: NCAT. Eyes - Sclera are white, anicteric, and without injection. MMM. Cardiac: Normal rate and regular rhythm; S1 and S2 present with no murmurs, rubs, or gallops. Pulmonary: Good respiratory effort with symmetric expansion of the chest. No use of accessory muscles. Lungs were clear to auscultation bilaterally with no crackles or wheezes. Abdominal: Normoactive bowel sounds. Abdomen was soft, nondistended, and non- tender to palpation. Extremities: BLE with chronic skin changes,. Left with some scaliness. No open wounds on either leg. No redness, tenderness, or swelling noted. Results & Data Results & Data ([facility]) Vital Signs (Past 12 Hours) Vital Signs Temp Pulse Pulse Resp BP Pulse Ox 12/31/21 03:38 36.9 C 88 18 141/90 H 93 09/16/21 23:26 37 C 74 18 142/66 H 93 09/16/21 22:31 110 H 09/16/21 19:36 36.6 C 84 16 136/82 94 Resident Activity Tracking Resident Involvement: Resident Care Provided Care Provided: Adult Hospital Medicine (1) Cellulitis Laterality: left Site of cellulitis: extremity Site of cellulitis of extremity: lower extremity Qualified Code(s): L03.116 - Cellulitis of left lower limb (2) Hemiparesis of left nondominant side Hemiparesis etiology: unspecified Qualified Code(s): G81.94 - Hemiplegia, unspecified affecting left nondominant side
--- NOTE | 2021-09-17 07:39 | XRay Report ---
XR chest 1V portable CLINICAL HISTORY: Follow-up pneumonia. Shortness of breath. COMPARISON STUDY: 09/15/2021 TECHNIQUE: 1 view of the chest FINDINGS: Single frontal view of the chest demonstrates the cardiomediastinal silhouette to be within normal li mits. Compared to previous examination, left lower lobe alveolar opacity is again seen characteristic of pneumonia. The remainder of the lungs are clear. There is minimal blunting of left costophrenic a ngle characteristic of small left pleural effusion as well. There is no evidence for vascular congest ion. There is no acute osseous pathology. IMPRESSION: No significant interval change in left lower lobe alveolar opacity characteristic of pneu monia. Small left pleural effusion. ACT 112: Negative or not required by law. Electronically signed by: Blair Rizzo M.D. 09/17/2021 7:37 AM
[2021-09-17 08:20] LABS: Basophils # (auto) 0.01 K/uL (0-0.2); Basophils % (auto) 0.1 %; Eosinophils # (auto) 0.22 K/uL (0-0.5); Eosinophils % (auto) 1.5 %; Hematocrit (blood only) 27.8 % (42-52); Hemoglobin 9.3 g/dL (14.0-18.0); Immature Granulocytes # (auto) 0.04 K/uL (0.00-0.02); Immature Granulocytes % (auto) 0.3 %; Mean Corpuscular Hemoglobin 32.9 pg (25-34); Mean Corpuscular Hgb Conc 33.5 g/dL (32-36); Mean Corpuscular Volume 98.2 fL (80-100); Mean Platelet Volume 8.8 fL (7.4-10.4); Monocytes # (auto) 1.07 K/uL (0.11-0.59); Monocytes % (auto) 7.2 %; Neutrophils # (auto) 12.68 K/uL (1.4-6.5); Neutrophils % (auto) 84.9 %; Platelet Count 341 K/uL (130-400); RDW Coefficient of Variation 14.2 % (11.5-14.5); RDW Standard Deviation 50.5 fL (36.4-46.3); Red Blood Count 2.83 M/uL (4.7-6.1); White Blood Count 14.92 K/uL (4.8-10.8)
[2021-09-17 08:36] LABS: Prothrombin Time 62.6 Seconds (9.0-12.0)
[2021-09-17 08:39] LABS: INR 7.2 (0.9-1.1)
[2021-09-17 08:53] LABS: BUN Creatinine Ratio 26.4 (10-20); Calcium 9.2 mg/dl (8.5-10.1); Creatinine Clr Calc Pharmacy 101.9 ml/min; Est GFR (African American) 106.7 ml/min; Est GFR (Non-African American) 92.1 ml/min; Potassium 3.4 mmol/L (3.5-5.1)
[2021-09-17] MEDS: DOCUSATE SODIUM 100 MG CAP PO SCH ×2 (09:35→20:44)
[2021-09-17] MEDS: BACLOFEN 10 MG TAB PO SCH ×2 (09:36→20:42)
[2021-09-17] MEDS: DICLOFENAC SOD 1% GEL 100 GM TUBE EXT SCH ×4 (09:36→20:44)
[2021-09-17] MEDS: PANTOprazole 40 MG in SYRINGE 0 ML IV SCH ×2 (09:36→20:47)
[2021-09-17] MEDS: BUMETANIDE 1 MG TAB PO SCH ×2 (09:37→20:43)
[2021-09-17] MEDS: PHENYTOIN SODIUM ER 100 MG CAP PO SCH ×2 (09:37→20:47)
[2021-09-17] MEDS: lamoTRIgine 100 MG TAB PO SCH ×2 (09:37→20:46)
[2021-09-17] MEDS: lamoTRIgine 25 MG TAB PO SCH ×2 (09:37→20:45)
[2021-09-17] MEDS: TROLAMINE SALICYLATE 10% CRM 255 APPLN/85 GM TUBE EXT SCH ×3 (09:38→20:48)
[2021-09-17] MEDS: POLYETHYLENE (MIRALAX) 17 GM PACK PO SCH ×2 (09:38→20:48)
[2021-09-17] MEDS ORDERED: METHYLNALTREXONE BROMIDE 12 MG/0.6 ML VIAL SQ SCH (11:00)
[2021-09-17 11:06] LABS: Albumin Level 2.5 gm/dl (3.4-5.0); Bilirubin,Total 1.5 mg/dl (0.2-1); Total Protein 7.5 gm/dl (6.4-8.2)
--- NOTE | 2021-09-17 17:01 | Ultrasound Report ---
ULTRASOUND RIGHT UPPER QUADRANT ABDOMEN CLINICAL HISTORY: Elevated hepatic transaminases. COMPARISON STUDY: Abdominal CT dated 10/05/2020. TECHNIQUE: Real-time, grayscale, and color flow sonography of the right upper quadrant of the abdomen was performed. Images are reviewed in the transverse and longitudinal planes. FINDINGS: Liver: The liver is normal in size and echotexture. There is no intrahepatic biliary ductal dilatatio n. The main portal vein is patent. Gallbladder: The gallbladder is normal in appearance. No gallstones are identified. There is no gallb ladder wall thickening or pericholecystic fluid. A sonographic Leonard's sign is reportedly absent. Th e common bile duct measures up to 0.5 cm in diameter. Pancreas: Not visualized due to overlying bowel gas. Right kidney: Survey images of the right kidney demonstrate normal size and echotexture. There is no hydronephrosis. A 2 cm renal sinus cyst is incidentally noted. Ascites: None. IMPRESSION: Unremarkable sonographic assessment of the right upper quadrant. No gallstones are identi fied. ACT 112: Negative or not required by law. Electronically signed by: John De La Garza M.D. 09/17/2021 5:00 PM
[2021-09-18] MEDS: ACETAMINOPHEN 500 MG TAB PO SCH ×3 (01:43→18:26)
[2021-09-18] MEDS: PIPERACILLIN/TAZOBACTAM 3.375 GM in DEXTROSE 5% 100 ML IV SCH ×3 (01:43→18:18)
--- NOTE | 2021-09-18 06:45 | Hospitalist Progress Note ---
Date of Service September 18, 2021 Assessment & Plan (1) Elevated liver enzymes: Plan: Balbir is a 65-year-old male with history of AVANI (unable to tolerate CPAP), pHTN, and prior DVTs who presented with bilateral lower extremity cellulitis that did not respond to outpatient therapy Elevated T. Bili, alk phos, transaminases -labs indicative of cholestatic vs infiltrative - T bili 1.5, AST 157, ALT 157, Alk phos 524, INR 7.2 (despite holding warfarin for several days) - Gallbladder ultrasound unremarkable - No current obvious signs of acute liver failure (no jaundice, n/v) -- no obvious signs of encephalopathy as patient responds fairly appropriately, though he seems to have baseline cognitive issues - 09/18: AST/ALT/Tbili improved, alk phos worsened - Gastroenterology consulted - HIDA scan ordered - Trend CMP Anemia, tachycardia --anemia stable - Patient's Hgb has steadily decrease with supratherapeutic INR - He has remained overall stable but has regularly been tachycardic - Possible may be myelosuppression from illness - No obvious signs of bleeding but will FOBT for possibility of a slow GI bleed - KUB ordered to evaluate as has been constipated (last BM 09/07/21) -- showing moderate stool burden - Added docusate, patient already has bisacodyl and Miralax but refusing the latter - 09/17: given dose of Relistor - Monitor CBC and hemodynamic status Pneumonia - WBC trending down steadily since starting on Zosyn - CXR 09/13 showing left basilar and left midlung airspace opacity, may reflect an infectious process - CXR 09/15 with interval progression of the left mid to lower lung zone density, likely combination of small left pleural effusion and airspace opacity - Imaging results may be slightly lagging clinical improvement as leukocytosis improving and afebrile with stable sats and no SOB/cough - CXR 09/17 with no significant interval change in LLL alveolar opacity characteristic of PNA. Small left pleural effusion. - Continue Zosyn Bilateral LE Cellulitis (L>R)--secondary to severe lower extremity peripheral edema causing cracks in the skin and weeping - Previously on Augmentin in outpatient setting (x2 days) -- unclear if true treatment failure - s/p Dapto/Zosyn -> CFTX for total of 5 days - Transitioned to doxycycline on 09/07 -- white count increasing since switching to doxy - Now on Zosyn as above for PNA -- cellulitis seems resolved at this point - Continue compression, elevation - WOCN following - appreciate insight, recommendations Lower Extremity Edema--stable without significant edema at current time - With severe lower extremity edema much worse his thinks over the last few months, but he has always had larger legs. Review of his chart shows that he has gained 21 kg in the last 7 months of body weight. - Echocardiogram from 07/2020 shows preserved LV EF 55-60%. Possibly contributory from AVANI. No proteinuria, serum albumin not severely decreased. - Suspect home Lasix regimen was inadequate, based on significant edema and the above discovered at admission - Diuresed adequately with IV Lasix --> PO Bumex - Continue Bumex 1mg b.i.d. - Low-sodium diet, compression stockings, elevation, as above - Monitor BMP Lower Extremity Pain - Suspect secondary to the above issues, as well as deconditioning, muscle spasm - In setting of previous L-sided tumor resection, possible this may represent spasticity too - Continue PT, topical NSAIDs, Bengay - Baclofen 5mg decreased to BID from TID to decrease sedation - Oxycodone had been held to decrease sedation as well but required overnight -- reorder PRN but decrease dose to 2.5mg Encephalopathy -resolved - Suspect was previously metabolic in setting on ongoing cellulitis, but also likely contributory from chronic memory impairment - History of meningitis noted - no signs or active concern for this at this time History of Brain Cancer - Status post 2 resections of brain tumor, with residual left-sided hemiparesis after second surgery Epilepsy - Continue home lamotrigine, phenytoin HTN - Stable. Monitor. History of DVT / Chronic Anticoagulation / Supratherapeutic INR--INR goal 2-3 - On Coumadin chronically for history of DVT - Supratherapeutic INR: 4.1 worsened to a peak of 7.2; has since improved to 5.8 - Hold warfarin - Trend INR daily Chronic Hemiparesis of L side - Secondary to brain cancer s/p resection - PT/OT HLD - Continue Lipitor AVANI - Patient does not tolerate CPAP, but does have known history of AVANI - Continue to encourage CPAP going forward, especially in setting of b/l LE edema and elevated pulmonary pressures Memory impairment - Supportive care FEN/GI:Low Sodium Code Status:DNR/DNI DVT PPX:Anticoagulated with Coumadin, monitoring INR Dispo: Pending placement at [place] per CM Admission and Anticipated Discharge Date Admission Date: September 02, 2021 Supervising Physician Co-Signing Physician Notes Attending attestation Pt seen and examined in concert with Dr. Doe. In agreement with the documented findings as noted in the resident documentation with any exceptions or additions as noted here. Resting comfortably in bed, still c/o stiffness of the RLE which is chronic per him. Did have satisfactory BM yesterday and today. On examination, S1/S2 nl RRR no MCG. CTAB. Abd NT/ND BS+ve Supratherapeutic INR - continue holding warfarin and daily INR - consider restart tomorrow at 50% dose based on results. Monitor for stigmata of bleeding Transaminitis - improved AST/ALT, persistent elevation of alk phos, US GB without overt pathology. GI consultation appreciated - HIDA pending for further evaluation. Pneumonia - continue zosyn w/ improving CXR Constipation - significant BM with relastor, continue bowel regimen Cellulitis - resolved Else see resident documentation as noted. Subjective Patient seen and evaluated at bedside this morning. No acute events overnight. Patient feels well today. Denies pain or other symptoms. Patient denies CP, SOB, abdominal pain, nausea, vomiting, lightheadedness, dizziness, and diarrhea. Physical Exam Physical Exam: Constitutional: well-appearing, no acute distress HEENT: NCAT, no conjunctival injection CV: regular rhythm, no murmur appreciated, extremities well-perfused, 1+ LE edema Resp: CTABL, no wheezes/rales/rhonchi appreciated, no increased work of breathing Skin: BL LE with some scaly discoloration, no erythema Results & Data Results & Data ([facility]) Vital Signs (Past 12 Hours) Vital Signs Temp Pulse Pulse Resp BP Pulse Ox 09/18/21 06:40 36.7 C 95 H 20 120/80 91 09/18/21 04:06 36.8 C 20 130/71 93 09/17/21 22:37 36.8 C 105 H 20 117/73 94 09/17/21 22:20 109 H 09/17/21 19:48 36.8 C 86 18 134/87 93 Resident Activity Tracking Resident Involvement: Resident Care Provided Care Provided: Adult Hospital Medicine
[2021-09-18 08:32] LABS: Basophils # (auto) 0.02 K/uL (0-0.2); Basophils % (auto) 0.1 %; Eosinophils # (auto) 0.26 K/uL (0-0.5); Eosinophils % (auto) 1.8 %; Hematocrit (blood only) 27.8 % (42-52); Hemoglobin 9.3 g/dL (14.0-18.0); Immature Granulocytes # (auto) 0.14 K/uL (0.00-0.02); Lymphocytes # (auto) 0.95 K/uL (1.2-3.4); Lymphocytes % (auto) 6.6 %; Mean Corpuscular Hemoglobin 32.9 pg (25-34); Mean Corpuscular Hgb Conc 33.5 g/dL (32-36); Mean Corpuscular Volume 98.2 fL (80-100); Monocytes # (auto) 1.27 K/uL (0.11-0.59); Monocytes % (auto) 8.9 %; Neutrophils # (auto) 11.66 K/uL (1.4-6.5); Neutrophils % (auto) 81.6 %; Platelet Count 350 K/uL (130-400); RDW Coefficient of Variation 14.2 % (11.5-14.5); RDW Standard Deviation 51.1 fL (36.4-46.3); Red Blood Count 2.83 M/uL (4.7-6.1)
[2021-09-18] MEDS: BACLOFEN 10 MG TAB PO SCH ×2 (08:53→20:35)
[2021-09-18 08:54] LABS: Prothrombin Time 51.5 Seconds (9.0-12.0)
[2021-09-18] MEDS: BUMETANIDE 1 MG TAB PO SCH ×2 (08:54→20:36)
[2021-09-18] MEDS: DOCUSATE SODIUM 100 MG CAP PO SCH ×3 (08:54→20:37)
[2021-09-18] MEDS: PHENYTOIN SODIUM ER 100 MG CAP PO SCH ×2 (08:54→20:42)
[2021-09-18] MEDS: DICLOFENAC SOD 1% GEL 100 GM TUBE EXT SCH ×4 (08:55→20:37)
[2021-09-18] MEDS: lamoTRIgine 25 MG TAB PO SCH ×2 (08:55→20:40)
[2021-09-18] MEDS: lamoTRIgine 100 MG TAB PO SCH ×2 (08:55→20:38)
[2021-09-18] MEDS: PANTOprazole 40 MG in SYRINGE 0 ML IV SCH ×2 (08:56→20:40)
[2021-09-18] MEDS: TROLAMINE SALICYLATE 10% CRM 255 APPLN/85 GM TUBE EXT SCH ×3 (08:57→20:42)
[2021-09-18 09:02] LABS: INR 5.8 (0.9-1.1)
[2021-09-18 09:14] LABS: Albumin Level 2.4 gm/dl (3.4-5.0); BUN Creatinine Ratio 26.2 (10-20); Calcium 9.1 mg/dl (8.5-10.1); Creatinine Clr Calc Pharmacy 106.2 ml/min; Est GFR (African American) 105.7 ml/min; Est GFR (Non-African American) 91.2 ml/min; Potassium 3.2 mmol/L (3.5-5.1)
[2021-09-18 09:16] LABS: Albumin Globulin Ratio 0.5 (0.9-2); Bilirubin,Total 1.2 mg/dl (0.2-1); Globulin 4.7 gm/dl (2.5-4.0); Total Protein 7.1 gm/dl (6.4-8.2)
[2021-09-18] MEDS: POLYETHYLENE (MIRALAX) 17 GM PACK PO SCH ×2 (09:26→20:43)
[2021-09-19] MEDS: ACETAMINOPHEN 500 MG TAB PO SCH ×2 (01:34→11:41)
[2021-09-19] MEDS: PIPERACILLIN/TAZOBACTAM 3.375 GM in DEXTROSE 5% 100 ML IV SCH ×2 (01:35→11:36)
--- NOTE | 2021-09-19 07:04 | Hospitalist Progress Note ---
Date of Service September 19, 2021 Assessment & Plan (1) Elevated liver enzymes: Plan: Balbir is a 65-year-old male with history of AVANI (unable to tolerate CPAP), pHTN, and prior DVTs who presented with bilateral lower extremity cellulitis that did not respond to outpatient therapy, who then developed pneumonia and transaminitis. Transaminitis suspected secondary to drug-induced liver injury - Patient with elevations in Tbili, AST, ALT, AlkPhos, and INR - Gallbladder ultrasound unremarkable - Gastroenterology consulted - has not seen patient yet but [facility] "After reviewing this patients chart, suspicious for a drug induced liver injury perhaps related to the many antibiotics he has received over the last two weeks. His liver enzymes were almost completely normal on the day of admission. Can consider an MRCP to be sure he does not have anything in his bile duct but his numbers may be related to drug induced liver injury" - No current obvious signs of acute liver failure (no jaundice, n/v) - HIDA scan ordered - Likely culprits for drug-induced liver injury include augmentin patient received before admission, and/or zosyn - Discontinued APAP, discontinued methylnaltrexone, discontinued zosyn - Trend CMP daily Leukocytosis - Patient with leukocytosis gradually rising since 09/15 - Seems unlikely due to cellulitis (resolved), pneumonia (completed course of zosyn) - No other obvious source of infection - Procalcitonin negative - ID consult placed - Repeat blood culture ordered (09/19/20) - Trend daily CBC, CMP Pneumonia - WBC initially trending down steadily since starting on zosyn, though it has since started to rise again - CXR 09/13 showing left basilar and left midlung airspace opacity, may reflect an infectious process - CXR 09/15 with interval progression of the left mid to lower lung zone density, likely combination of small left pleural effusion and airspace opacity - CXR 09/17 with no significant interval change in LLL alveolar opacity characteristic of PNA. Small left pleural effusion. - Seven-day course of zosyn completed on 09/19/20 - Procalcitonin negative; ongoing bacterial process unlikely - Continue to monitor History of DVT / Chronic Anticoagulation / Supratherapeutic INR--INR goal 2-3 - On Coumadin chronically for history of DVT - Supratherapeutic INR: 4.1 worsened to a peak of 7.2; since then, continues to gradually improve - Possibly related to drug-induced liver injury as above - Hold warfarin for now, consider restarting at 1/2 dose when INR is in goal range - Trend INR daily Anemia, tachycardia --anemia stable - Patient's Hgb has steadily decrease with supratherapeutic INR - He has remained overall stable but has regularly been tachycardic - Possible may be myelosuppression from illness - No obvious signs of bleeding but will FOBT for possibility of a slow GI bleed - Monitor CBC and hemodynamic status Bilateral LE Cellulitis (L>R)--resolved - Previously on Augmentin in outpatient setting (x2 days) -- unclear if true treatment failure - s/p Dapto/Zosyn -> CFTX for total of 5 days --> doxy (discontinued when WBC continued to rise) --> zosyn (completed 09/19/20) - Appears to have resolved - Continue compression, elevation - WOCN following - appreciate insight, recommendations Constipation - Patient with intermittent constipation and stool burden on KUB - Had been receiving methylnaltrexone every other day, but this was discontinued 09/19/20 due to liver injury noted above - Added docusate, patient already has bisacodyl and Miralax but refusing the latter - Continue to monitor Lower Extremity Edema--stable without significant edema at current time - With severe lower extremity edema much worse his thinks over the last few months, but he has always had larger legs. Review of his chart shows that he has gained 21 kg in the last 7 months of body weight. - Echocardiogram from 07/2020 shows preserved LV EF 55-60%. Possibly c ontributory from AVANI. No proteinuria, serum albumin not severely decreased. - Suspect home Lasix regimen was inadequate, based on significant edema and the above discovered at admission - Diuresed adequately with IV Lasix --> PO Bumex - Continue Bumex 1mg b.i.d. - Low-sodium diet, compression stockings, elevation, as above - Monitor BMP Lower Extremity Pain - Suspect secondary to the above issues, as well as deconditioning, muscle spasm - In setting of previous L-sided tumor resection, possible this may represent spasticity too - Continue PT, topical NSAIDs, Bengay - Baclofen 5mg decreased to BID from TID to decrease sedation - Oxycodone had been held to decrease sedation as well but required overnight -- reorder PRN but decrease dose to 2.5mg - Uric acid level ordered to evaluate for possible gout Encephalopathy - Suspect was previously metabolic in setting on ongoing cellulitis, but also likely contributory from chronic memory impairment - History of meningitis noted - no signs or active concern for this at this time History of Brain Cancer - Status post 2 resections of brain tumor, with residual left-sided hemiparesis after second surgery Epilepsy - Continue home lamotrigine, phenytoin HTN - Stable. Monitor. Chronic Hemiparesis of L side - Secondary to brain cancer s/p resection - PT/OT HLD - Continue Lipitor AVANI - Patient does not tolerate CPAP, but does have known history of AVANI - Continue to encourage CPAP going forward, especially in setting of b/l LE edema and elevated pulmonary pressures Memory impairment - Supportive care FEN/GI:Low Sodium Code Status:DNR/DNI DVT PPX:Anticoagulated with Coumadin, monitoring INR Dispo: Pending placement at [place] per Admission and Anticipated Discharge Date Admission Date: September 02, 2021 Supervising Physician Co-Signing Physician Notes Attending attestation Pt seen and examined in concert with Dr. Doe. In agreement with the documented findings as noted in the resident documentation with any exceptions or additions as noted here. Resting in bed, alert and oriented x 3. Ongoing chronic LE pain worse with WB. On examination, S1/S2 nl RRR no MCG. CTAB. Abd NT/ND BS+ve Transaminitis w/ concern for drug induced liver injury from repeated Abx and medical therapy - improved AST/ALT, persistent elevation of alk phos, US GB without overt pathology. GI consultation - medication changes as noted Supratherapeutic INR - continue holding warfarin and daily INR - Improving. Monitor for stigmata of bleeding Pneumonia - negative procal today, stable CXR. Course of Zosyn x 6.5 days, d/c'd. Constipation - significant BM with relastor, continue bowel regimen Cellulitis - resolved Else see resident documentation as noted. Subjective Patient seen and evaluated at bedside this morning. No acute events overnight. Patient feels "okay" this morning, "a bit worse" than yesterday. Continues to endorse mild leg pain. Reports his breathing feels okay today. Patient denies CP, SOB, abdominal pain, nausea, vomiting, lightheadedness, dizziness, and diarrhea. Review of Systems Review of Systems: See HPI Physical Exam Physical Exam: Constitutional: well-appearing, no acute distress HEENT: NCAT, no conjunctival injection, no scleral icterus CV: regular rhythm, no murmur appreciated, extremities well-perfused, 1+ LE edema Resp: left lower breath sounds slightly diminished, no wheezes/rales/rhonchi appreciated, no increased work of breathing Skin: BL LE with some scaly discoloration, no erythema Results & Data Results & [facility] ([facility]) Vital Signs (Past 12 Hours) Vital Signs Temp Pulse Pulse Resp BP Pulse Ox 09/18/21 23:50 36.6 C 90 20 133/86 93 09/18/21 22:19 93 H 09/18/21 19:47 36.4 C L 86 18 137/84 93 Resident Activity Tracking Resident Involvement: Resident Care Provided Care Provided: Adult Hospital Medicine
[2021-09-19] MEDS: BACLOFEN 10 MG TAB PO SCH ×2 (09:33→20:44)
[2021-09-19] MEDS: PHENYTOIN SODIUM ER 100 MG CAP PO SCH ×2 (09:33→20:49)
[2021-09-19] MEDS: DOCUSATE SODIUM 100 MG CAP PO SCH ×2 (09:34→20:46)
[2021-09-19] MEDS: lamoTRIgine 25 MG TAB PO SCH ×2 (09:34→20:47)
[2021-09-19] MEDS: lamoTRIgine 100 MG TAB PO SCH ×2 (09:35→20:48)
[2021-09-19] MEDS: PANTOprazole 40 MG in SYRINGE 0 ML IV SCH ×2 (09:35→20:43)
[2021-09-19] MEDS: BUMETANIDE 1 MG TAB PO SCH ×2 (09:36→20:45)
[2021-09-19] MEDS: DICLOFENAC SOD 1% GEL 100 GM TUBE EXT SCH ×4 (09:36→20:46)
[2021-09-19] MEDS: TROLAMINE SALICYLATE 10% CRM 255 APPLN/85 GM TUBE EXT SCH ×3 (09:38→20:49)
[2021-09-19] MEDS ORDERED: METHYLNALTREXONE BROMIDE 12 MG/0.6 ML VIAL SQ SCH (09:45)
[2021-09-19 09:57] LABS: Basophils # (auto) 0.01 K/uL (0-0.2); Basophils % (auto) 0.1 %; Eosinophils # (auto) 0.26 K/uL (0-0.5); Eosinophils % (auto) 1.7 %; Hematocrit (blood only) 29.7 % (42-52); Hemoglobin 9.7 g/dL (14.0-18.0); Immature Granulocytes # (auto) 0.12 K/uL (0.00-0.02); Immature Granulocytes % (auto) 0.8 %; Lymphocytes # (auto) 0.91 K/uL (1.2-3.4); Lymphocytes % (auto) 5.9 %; Mean Corpuscular Hemoglobin 32.2 pg (25-34); Mean Corpuscular Hgb Conc 32.7 g/dL (32-36); Mean Corpuscular Volume 98.7 fL (80-100); Monocytes # (auto) 1.21 K/uL (0.11-0.59); Monocytes % (auto) 7.8 %; Neutrophils # (auto) 12.96 K/uL (1.4-6.5); Neutrophils % (auto) 83.7 %; Platelet Count 366 K/uL (130-400); RDW Coefficient of Variation 14.2 % (11.5-14.5); RDW Standard Deviation 50.7 fL (36.4-46.3); Red Blood Count 3.01 M/uL (4.7-6.1); White Blood Count 15.47 K/uL (4.8-10.8)
[2021-09-19] MEDS ORDERED: ALBUT/IPRATROP 3MG/0.5MG NEB 3 ML VIAL NEB PRN (10:04)
[2021-09-19 10:22] LABS: INR 4.4 (0.9-1.1); Prothrombin Time 39.9 Seconds (9.0-12.0)
[2021-09-19 10:27] LABS: Albumin Level 2.3 gm/dl (3.4-5.0); BUN Creatinine Ratio 19.6 (10-20); Bilirubin,Total 1.2 mg/dl (0.2-1); Calcium 9.2 mg/dl (8.5-10.1); Est GFR (African American) 108.3 ml/min; Est GFR (Non-African American) 93.5 ml/min; Potassium 3.3 mmol/L (3.5-5.1)
[2021-09-19 10:28] LABS: Albumin Globulin Ratio 0.5 (0.9-2); Globulin 4.9 gm/dl (2.5-4.0); Total Protein 7.2 gm/dl (6.4-8.2)
[2021-09-19] MEDS: POLYETHYLENE (MIRALAX) 17 GM PACK PO SCH ×3 (11:36→20:49)
[2021-09-19] MEDS ORDERED: POTASSIUM CHLORIDE CRTAB 20 MEQ TABCR PO STA (14:04)
--- NOTE | 2021-09-19 16:13 | XRay Report ---
TWO VIEW CHEST CLINICAL HISTORY: Follow-up pneumonia. FINDINGS: AP and lateral chest radiographs are compared to study dated 09/17/2021. The AP view is deg raded by patient rotation. The lateral views are severely degraded by the patient's arms which could not be elevated. The heart is mildly enlarged noting atherosclerotic calcification of the thoracic ao rta. Airspace consolidation is again seen at the left lung base. A small left pleural effusion is clifton pected. The right lung appears clear. There is no pneumothorax. The skeletal structures are osteopeni c. The bony thorax appears intact. IMPRESSION: 1. There is a small left pleural effusion with left basilar consolidation. This has not appreciably c hanged as compared to 09/17/2021. 2. Cardiomegaly. ACT 112: Negative or not required by law. Electronically signed by: John De La Garza M.D. 09/19/2021 4:12 PM
[2021-09-19] MEDS: ONDANSETRON INJ 2 MG/ML 2 ML VIAL IV PRN (16:26)
--- NOTE | 2021-09-19 18:08 | Gastrointestinal Consultation ---
Date of Consultation September 19, 2021 Assessment & Plan (1) Hx of brain cancer: (2) Generalized epilepsy: (3) Elevated LFTs: 65 yo male wtiha history of glioblastoma s/p resection 2003 and subsequent bleed requiring repeat surgery, persistent CSF leak and problems with recurrent meningitis requiring abx off and on, seizure disorder on phenytoin and lamictal admitted with worsening LE cellulitis (failed outpatient mgt with Augmentin and ?other abx)and then subsequent pneumonia. LFTS on admission on 09/02 normal aside from AP of 185. Just checked again on 09/17 and noted to be elevated with AP of 557 and TB of 1.5 as well as mild elevation in transaminases in the 150's. US with CBD of 5mm and normal gallbladder. IT would have been interesting to see at what temporal point LFTs started to increase over the last 2 weeks. Suspect cholestatic pattern secondary to DILI (antibiotics (had augmentin prior to admission and several others since admission) +/- phenytoin). - Would stop any unnecessary antibiotics. - Would also check a phenytoin level if these are not being followed. It was only checked on admission. - Hold all potentially hepatoxic drugs. - Follow LFTs daily as well as INR and mental status closely. (4) DVT of leg (deep venous thrombosis): (5) CKD (chronic kidney disease) stage 2, GFR 60-89 ml/min: History of Present Illness Reason for Consultation: elevated LFTs Attending Physician: Stuart Freeman MD History of Present Illness 65 yo male with multiple comorbidities including a history of glioblastoma s/p resection, seizure disorder, history of recurrent meningitis, VTE on chornic anticoagulation and COVID in July. He was admitted 09/02 with worsening LLE wound and cellulitis. Failed outpatient Augmentin. He has received Daptomycin and Zosyn. He also developed pneumonia. We are asked to see him today secondary to newly elevated liver enzymes. His LFTs were checked on admission and were normal aside from AP of 185. They were not again checked until 09/17 and at that time were significant for AST 157, ALT 157, AP 524, and total bili 1.5. LFTS this AM with AST 97, ALT 120, AP 581, and Tbili 1.2. RUQ US showed normal appearing gallbladder and CBD of 5mm. No abd pain. INR is also supratherapeutic (as high as 7.2). today 4 range. Persistent leukocytosis. No history of liver disease. He is on phenytoin and lamictal for seizure d/o related to the glio and surgery. Allergies Allergy/AdvReac Type Severity Reaction Status Date / Time No Known Allergies Allergy ` Verified 09/02/21 14:28 Home Medications Medication Instructions Recorded Confirmed Type lorazepam 1 mg tablet 1 mg PO DAILY PRN 30 Days #30 tab 09/29/20 09/02/21 Rx phenytoin sodium extended 100 mg 200 mg PO BID 30 Days #120 cap 12/14/20 1 Rx capsule (Dilantin Extended) acetaminophen 500 mg tablet 1,000 mg PO Q6H PRN 01/30/21 09/02/21 History (Tylenol Extra Strength) lamotrigine 200 mg tablet 200 mg PO BID #60 tab 07/09/21 09/02/21 Rx oxycodone 5 mg tablet 5 mg PO Q8H PRN #31 tab 07/14/21 09/02/21 Rx warfarin 5 mg tablet 5 mg PO .COMPLEX #100 tab 08/09/21 09/02/21 Rx lamotrigine 25 mg tablet 50 mg PO BID 08/12/21 09/02/21 History amoxicillin 875 mg-potassium 1 tab PO BID #20 tab 08/31/21 09/02/21 Rx clavulanate 125 mg tablet (Augmentin) furosemide 20 mg tablet 40 mg PO DAILY #60 tab 08/31/21 09/02/21 Rx atorvastatin 40 mg tablet 40 mg PO DAILY #30 tab 09/02/21 09/02/21 Rx Patient History Medical History Benign hypertension Chronic anticoagulation CKD (chronic kidney disease) stage 2, GFR 60-89 ml/min Closed left clavicular fracture Complex partial seizure DVT of leg (deep venous thrombosis) Fall Hx of brain cancer Glioblastoma Multiforme - 2003 - s/p resection [facility] [address] Memory impairment Meningitis multiple episodes AVANI (obstructive sleep apnea) Small bowel obstruction Surgical History H/O cataract removal with insertion of prosthetic lens H/O shoulder surgery Hx of brain surgery 2003 initial resection for GBM at [facility]; 2007 - 2nd surgery, this time at [facility], ultimately was discovered to have blood clot & scar tissue rather than recurrent cancer Family History Father , in his mid 60s of cardiac issues. CHF (congestive heart failure) Myocardial infarction Denies family history of Brain tumor Ovarian cancer Prostate cancer Breast cancer SBO (small bowel obstruction) Colorectal cancer Social History Smoking Status: Never smoker Second Hand Exposure: No; Hx Alcohol Use: No Hx Substance Use: No Preferred Language: Portuguese Communication Ability: Effective Tank Pumper Required: No Beliefs That Will Affect Care: None marital status: Current Living Situation: Spouse Current Living Situation Comment: lives in [facility]; 2 children 1st marriage; 2 children 2nd marriage current occupational status: retired 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, 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 How many Children do You have: 4 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 Feels Safe at Home: Yes Childhood Exposure to Second-Hand Smoke: No caffeine: No Dental Care, Regularly: Yes Physical Activity Frequency: Does not Exercise Seatbelt Use: never Sunscreen Use: No Assistive Devices: Glasses Review of Systems Review of Systems: All systems reviewed & are unremarkable except as noted in HPI & below Physical Exam Constitutional: WD/WN, vitals as above Cardiovascular: Rate/Rhythm: regular rhythm and + tachycardic Gastrointestinal (Abdomen): normal bowel sounds, soft, nontender, no hepatosplenomegaly Results & Data ([facility]) Vital Signs (Past 12 Hours) Vital Signs Temp Pulse Pulse Resp BP Pulse Ox 09/19/21 16:16 37.1 C 105 H 20 122/78 90 09/19/21 14:30 117 H 09/19/21 11:39 37.0 C 100 H 20 149/65 H 93 09/19/21 10:45 90 16 93 09/19/21 07:33 37.4 C 90 20 120/77 92 09/19/21 07:00 85 (1) DVT of leg (deep venous thrombosis) Affected thrombotic vein of extremity: unspecified vein of extremity Chronicity: unspecified Laterality: unspecified laterality Qualified Code(s): I82.409 - Acute embolism and thrombosis of unspecified deep veins of unspecified lower extremity
[2021-09-19] MEDS: oxyCODONE HCL IR 5 MG TAB (IMMEDIATE RELEASE) PO PRN (23:46)
[2021-09-20 06:03] LABS: Basophils # (auto) 0.02 K/uL (0-0.2); Basophils % (auto) 0.1 %; Eosinophils # (auto) 0.18 K/uL (0-0.5); Eosinophils % (auto) 1.3 %; Hematocrit (blood only) 28.2 % (42-52); Hemoglobin 9.2 g/dL (14.0-18.0); Immature Granulocytes # (auto) 0.19 K/uL (0.00-0.02); Immature Granulocytes % (auto) 1.3 %; Mean Corpuscular Hemoglobin 32.4 pg (25-34); Mean Corpuscular Hgb Conc 32.6 g/dL (32-36); Mean Corpuscular Volume 99.3 fL (80-100); Mean Platelet Volume 8.9 fL (7.4-10.4); Monocytes # (auto) 1.08 K/uL (0.11-0.59); Monocytes % (auto) 7.5 %; Neutrophils # (auto) 11.86 K/uL (1.4-6.5); Neutrophils % (auto) 82.8 %; Platelet Count 385 K/uL (130-400); RDW Coefficient of Variation 14.6 % (11.5-14.5); RDW Standard Deviation 52.8 fL (36.4-46.3); Red Blood Count 2.84 M/uL (4.7-6.1); White Blood Count 14.33 K/uL (4.8-10.8)
[2021-09-20 06:33] LABS: Albumin Globulin Ratio 0.5 (0.9-2); Albumin Level 2.4 gm/dl (3.4-5.0); BUN Creatinine Ratio 21.6 (10-20); Bilirubin,Total 1.2 mg/dl (0.2-1); Creatinine Clr Calc Pharmacy 98.8 ml/min; Est GFR (African American) 110.6 ml/min; Est GFR (Non-African American) 95.4 ml/min; Globulin 4.8 gm/dl (2.5-4.0); Potassium 3.8 mmol/L (3.5-5.1); Total Protein 7.2 gm/dl (6.4-8.2); Uric Acid 3.3 mg/dl (2.6-7.2)
[2021-09-20 06:41] LABS: INR 5.2 (0.9-1.1); Prothrombin Time 46.3 Seconds (9.0-12.0)
--- NOTE | 2021-09-20 07:41 | Hospitalist Progress Note ---
Date of Service September 20, 2021 Assessment & Plan (1) Elevated liver enzymes: Plan: Balbir is a 65-year-old male with history of AVANI (unable to tolerate CPAP), pHTN, and prior DVTs who presented with bilateral lower extremity cellulitis that did not respond to outpatient therapy, who then developed pneumonia and transaminitis. Transaminitis suspected secondary to drug-induced liver injury - Patient with elevations in Tbili, AST, ALT, AlkPhos, and INR - Gallbladder ultrasound unremarkable - Gastroenterology consulted Suspect cholestatic pattern secondary to DILI (antibiotics (had augmentin prior to admission and several others since admission) +/- phenytoin). - Would stop any unnecessary antibiotics. - Would also check a phenytoin level if these are not being followed. It was only checked on admission. - Hold all potentially hepatoxic drugs. - Follow LFTs daily as well as INR and mental status closely. - Check viral serologies: CMV, HSV, EBV, and parvovirus - No current obvious signs of acute liver failure (no jaundice, n/v) - HIDA scan unable to be completed due to patient refusal secondary to leg pain - CT abd ordered by GI -- await results - Likely culprits for drug-induced liver injury include Augmentin patient received before admission, and/or Zosyn - Discontinued APAP, discontinued methylnaltrexone, discontinued Zosyn - Trend CMP daily Leukocytosis - Patient with leukocytosis gradually rising since 09/15 - Seems unlikely due to cellulitis (resolved), pneumonia (completed course of Zosyn) - No other obvious source of infection - Procalcitonin negative - ID consult placed - Repeat blood culture ordered (09/19/20) - Trend daily CBC, CMP Pneumonia - WBC initially trending down steadily since starting on zosyn, though it has since started to rise again - CXR 09/13 showing left basilar and left midlung airspace opacity, may reflect an infectious process - CXR 09/15 with interval progression of the left mid to lower lung zone density, likely combination of small left pleural effusion and airspace opacity - CXR 09/17 with no significant interval change in LLL alveolar opacity characteristic of PNA. Small left pleural effusion. - Seven-day course of Zosyn completed on 09/19/20 - Procalcitonin negative; ongoing bacterial process unlikely - Continue to monitor History of DVT / Chronic Anticoagulation / Supratherapeutic INR--INR goal 2-3 - On Coumadin chronically for history of DVT - Supratherapeutic INR: worsened to a peak of 7.2; since then, continues to gradually improve - Possibly related to drug-induced liver injury as above - Hold warfarin for now, consider restarting at 1/2 dose when INR is in goal range - Trend INR daily Anemia, tachycardia --anemia stable - Patient's Hgb has steadily decrease with supratherapeutic INR - He has remained overall stable but has regularly been tachycardic - Possible may be myelosuppression from illness - No obvious signs of bleeding but will FOBT for possibility of a slow GI bleed - Monitor CBC and hemodynamic status Bilateral LE Cellulitis (L>R)--resolved - Previously on Augmentin in outpatient setting (x2 days) -- unclear if true treatment failure - s/p Dapto/Zosyn -> CFTX for total of 5 days --> doxy (discontinued when WBC continued to rise) --> zosyn (completed 09/19/20) - Appears to have resolved - Continue compression, elevation - WOCN following - appreciate insight, recommendations Constipation - Patient with intermittent constipation and stool burden on KUB - Had been receiving methylnaltrexone every other day, but this was discontinued 09/19/20 due to liver injury noted above - Added docusate, patient already has bisacodyl and Miralax but refusing the latter - Continue to monitor Lower Extremity Edema--stable without significant edema at current time - With severe lower extremity edema much worse his thinks over the last few months, but he has always had larger legs. Review of his chart shows that he has gained 21 kg in the last 7 months of body weight. - Echocardiogram from 07/2020 shows preserved LV EF 55-60%. Possibly contributory from AVANI. No proteinuria, serum albumin not severely decreased. - Suspect home Lasix regimen was inadequate, based on significant edema and the above discovered at admission - Diuresed adequately with IV Lasix --> PO Bumex - Continue Bumex 1mg b.i.d. - Low-sodium diet, compression stockings, elevation, as above - Monitor BMP Lower Extremity Pain - Suspect secondary to the above issues, as well as deconditioning, muscle spasm - In setting of previous L-sided tumor resection, possible this may represent spasticity too - Continue PT, topical NSAIDs, Bengay - Baclofen 5mg decreased to BID from TID to decrease sedation - Oxycodone had been held to decrease sedation as well but required overnight -- reorder PRN but decrease dose to 2.5mg - Uric acid level ordered to evaluate for possible gout Encephalopathy - Suspect was previously metabolic in setting on ongoing cellulitis, but also likely contributory from chronic memory impairment - History of meningitis noted - no signs or active concern for this at this time History of Brain Cancer - Status post 2 resections of brain tumor, with residual left-sided hemiparesis after second surgery Epilepsy - Continue home lamotrigine, phenytoin HTN - Stable. Monitor. Chronic Hemiparesis of L side - Secondary to brain cancer s/p resection - PT/OT HLD - Continue Lipitor AVANI - Patient does not tolerate CPAP, but does have known history of AVANI - Continue to encourage CPAP going forward, especially in setting of b/l LE edema and elevated pulmonary pressures Memory impairment - Supportive care FEN/GI:Low Sodium Code Status:DNR/DNI DVT PPX:Anticoagulated with Coumadin, monitoring INR Dispo: Pending placement at [place] per Admission and Anticipated Discharge Date Admission Date: September 02, 2021 Supervising Physician Co-Signing Physician Notes Pt seen and examined in concert with Dr. Mccloud. In agreement with the documented findings as noted in the resident documentation with any exceptions or additions as noted here. Resting in bed, alert and oriented x 3. Ongoing chronic LE pain worse with WB. On examination, S1/S2 nl RRR no MCG. CTAB. Abd NT/ND BS+ve Transaminitis w/ concern for drug induced liver injury from repeated Abx and medical therapy - improved AST/ALT, persistent elevation of alk phos, US GB without overt pathology. GI consultation - medication changes as noted will likely require further workup as an outpatient. Supratherapeutic INR - continue holding warfarin and daily INR - Improving. Monitor for stigmata of bleeding Pneumonia - negative procal today, stable CXR. Course of Zosyn x 6.5 days, d/c'd. Constipation - significant BM with relastor, continue bowel regimen Cellulitis - appears resolved, however, ID is recommending IV vanco for a few days. Else see resident documentation as noted. Subjective No acute events overnight. This morning patient is complaining of leg pain. For this reason, he refused to complete HIDA scan. He denies shortness of breath, chest pain, palpitations, fever, chills, nausea, vomiting. Review of Systems Review of Systems: See HPI Physical Exam Physical Exam: General: Alert, oriented to person and place. HEENT: NCAT. Eyes - Sclera are white, anicteric, and without injection. MMM. Cardiac: Normal rate and regular rhythm; S1 and S2 present with no murmurs, rubs, or gallops. Pulmonary: Good respiratory effort with symmetric expansion of the chest. No use of accessory muscles. Lungs were clear to auscultation bilaterally with no crackles or wheezes. Abdominal: Normoactive bowel sounds. Abdomen was soft, nondistended, and non- tender to palpation. Extremities: BLE with chronic skin changes. Left with some scaliness. No open wounds on either leg. No redness or swelling noted. Results & Data Results & Data ([facility]) Vital Signs (Past 12 Hours) Vital Signs Temp Pulse Pulse Resp BP Pulse Ox 09/20/21 07:27 85 09/20/21 07:10 36.9 C 98 H 18 123/83 92 09/20/21 03:26 36.9 C 74 18 132/74 93 09/19/21 23:10 36.6 C 79 18 136/74 94 09/19/21 22:19 96 H Resident Activity Tracking Resident Involvement: Resident Care Provided Care Provided: Adult Hospital Medicine
--- NOTE | 2021-09-20 08:20 | Nuclear Medicine Report ---
NM hepatobiliary CLINICAL HISTORY: 65 years-old Male with increased liver enzymes. Acutely elevated LFTs TECHNIQUE: Sequential anterior abdominal images were obtained through 1 minutes following the intrav enous administration of 5.1 mCi of technetium-99m Choletec. COMPARISON: Right upper quadrant abdominal ultrasound 09/17/2021 FINDINGS: There is prompt, uniform accumulation of the tracer by the liver. The biliary tree and gallbladder ar e unable to be evaluated secondary to the patient terminating the study after 1 minute secondary to r eported abdominal pain. IMPRESSION: The study was prematurely terminated. Therefore the biliary tree and gallbladder were un able to be evaluated. ACT 112: Negative or not required by law. The above report was generated using voice recognition software. It may contain grammatical, syntax o r spelling errors. Electronically signed by: Christopher Martinez M.D. 09/20/2021 8:18 AM
[2021-09-20] MEDS: DICLOFENAC SOD 1% GEL 100 GM TUBE EXT SCH ×4 (09:00→20:37)
[2021-09-20] MEDS: TROLAMINE SALICYLATE 10% CRM 255 APPLN/85 GM TUBE EXT SCH ×3 (09:00→20:37)
[2021-09-20] MEDS: BUMETANIDE 1 MG TAB PO SCH ×2 (09:00→20:36)
[2021-09-20] MEDS: MICONAZOLE NITRATE POWDER 43 GM EXT PRN (09:00)
[2021-09-20] MEDS: BACLOFEN 10 MG TAB PO SCH ×2 (09:01→20:35)
[2021-09-20] MEDS: PHENYTOIN SODIUM ER 100 MG CAP PO SCH ×2 (09:01→20:39)
[2021-09-20] MEDS: lamoTRIgine 100 MG TAB PO SCH ×2 (09:02→20:39)
[2021-09-20] MEDS: lamoTRIgine 25 MG TAB PO SCH ×2 (09:02→20:37)
[2021-09-20] MEDS: DOCUSATE SODIUM 100 MG CAP PO SCH ×2 (09:03→20:36)
[2021-09-20] MEDS: PANTOprazole 40 MG in SYRINGE 0 ML IV SCH ×2 (09:04→20:38)
[2021-09-20] MEDS: POLYETHYLENE (MIRALAX) 17 GM PACK PO SCH ×2 (10:55→20:37)
--- NOTE | 2021-09-20 11:06 | Gastroenterology Progress Note ---
Date of Service September 20, 2021 Assessment & Plan (1) Hx of brain cancer: (2) Generalized epilepsy: (3) Elevated LFTs: Plan: 65 yo male on antibiotics for leg cellulitis, pneumonia. Hx seizure disorder on phenytoin and lamictal. LFTS on admission on 09/02 normal - elevated in a cholestatic pattern - stable now since 09/17. US w/o evidence of fatty liver dx/liver mets or bile duct obstruction and pt denies abd pain. Recheck dilatin level. Check viral serologies: CMV, HSV, EB and parvovirus. Avoid unnecessary antibiotics and heptotoxic drugs. Will continue to follow. Please check LFTs tomorrow . (4) DVT of leg (deep venous thrombosis): (5) CKD (chronic kidney disease) stage 2, GFR 60-89 ml/min: Admission and Anticipated Discharge Date Admission Date: September 02, 2021 Supervising Physician Co-Signing Physician Notes Attending attestation I have seen, examined this patient, and agree with the findings and above by our mid-level provider TOBIN Quinonez, with the following additions: - Elevated LFT's after adm, abx exposure - Possible DILI - Will obtain CT and infectious labs, will await initial work up, consider LB and steroids if necessary. Labs stable for last several days, no dysfunction noted. - Will follow Subjective 65 male, hx glioblastoma S/P resection. GI consulted for elevated LFTs - continue elevated but stable. Pt denies abd pain. HIDA this morning - not completed - pt c/o pain and refused to continue. US on 09/17 w/o obed dil; no liver or gallbladder abnormalities. Review of Systems Review of Systems: ROS: Gen: + main concern is pain; Denies weakness, fevers, weight loss Eyes: No eye redness, or pain, no recent vision changes Resp: No SOB, no cough Cardio: No palpitations/irregular beats, no chest pain; + chronic lower leg edema GI: No abdominal pain, no nausea/vomiting : Denies pain on urination Skin: + chronically dull red skin both lower legs; No jaundice, itching or new rashes A total of 12 systems were reviewed, all others (-). Physical Exam Constitutional: well developed, + ill appearing, cooperative and + overweight Eyes: PERRL, conjunctivae normal, anicteric sclerae ENMT: external ear and nose normal, oropharynx normal Neck: trachea midline, no thyromegaly Respiratory: normal respiratory effort, lungs clear to auscultation Cardiovascular: Rate/Rhythm: regular rate and regular rhythm Extremities: + edema (mild bilat lower leg edema; Lt > Rt) Gastrointestinal (Abdomen): normal bowel sounds, soft, nontender, no hepatosplenomegaly Skin: normal turgor Dull red skin both lower legs Lt>Rt Neurologic: PERRL, EOMI, accommodation nl, no face palsy, no dysarthria awake Psychiatric: A+Ox3, euthymic affect Orientation: alert, oriented x 3 and cooperative Lymphatic: no cervical or axillary lymphadenopathy Results & Data ([facility]) Vital Signs (Past 12 Hours) Vital Signs Temp Pulse Pulse Resp BP Pulse Ox 09/20/21 07:27 85 09/20/21 07:10 36.9 C 98 H 18 123/83 92 09/20/21 03:26 36.9 C 74 18 132/74 93 09/19/21 23:10 36.6 C 79 18 136/74 94 Laboratory Results WBC 14.3, Hb 9.2, Hct 28,2, Plts 385, Na 133, K 3.8, Cl 199, CO2 27, BUN 17, Cr 0.78. T Bili 1.2, AST 118, ALT 138, Alk Phos 589 Diagnostic Findings HIDA 09/20/21: The study was prematurely terminated. Therefore the biliary tree and gallbladder were unable to be evaluated. RUQ US 09/17.21L Unremarkable sonographic assessment of the right upper quadrant. No gallstones are identified. (1) DVT of leg (deep venous thrombosis) Affected thrombotic vein of extremity: unspecified vein of extremity Chronicity: unspecified Laterality: unspecified laterality Qualified Code(s): I82.409 - Acute embolism and thrombosis of unspecified deep veins of unspecified lower extremity
[2021-09-20] MEDS ORDERED: oxyCODONE HCL IR 5 MG TAB (IMMEDIATE RELEASE) PO STA (15:58)
[2021-09-20 16:37] LABS: Hepatitis B Surf Ag Rflx Conf Neg (Neg)
[2021-09-20] MEDS: bisacodyL 5 MG TABEC PO PRN (16:37)
[2021-09-20 17:06] LABS: Hepatitis C IgG 13Yrs+Old_Rflx Neg (Neg)
[2021-09-20] MEDS ORDERED: VANCOMYCIN CONSULT ACTIVE PRN (19:34)
[2021-09-20] MEDS ORDERED: VANCOMYCIN HCL 1,750 MG in SODIUM CHLORIDE 0.9% 500 ML IV ONE (20:15)
--- NOTE | 2021-09-20 20:20 | Billing Data ---
Date of Service September 20, 2021 Coding Level of Care Code 29951 Subseq Hosp Care Lvl 2
[2021-09-20] MEDS: oxyCODONE HCL IR 5 MG TAB (IMMEDIATE RELEASE) PO PRN (20:34)
[2021-09-20] MEDS: ONDANSETRON INJ 2 MG/ML 2 ML VIAL IV PRN (21:30)
[2021-09-21] MEDS ORDERED: oxyCODONE HCL IR 5 MG TAB (IMMEDIATE RELEASE) PO STA (05:19)
--- NOTE | 2021-09-21 07:55 | Hospitalist Progress Note ---
Date of Service September 21, 2021 Assessment & Plan (1) Elevated liver enzymes: Plan: Balbir is a 65-year-old male with history of AVANI (unable to tolerate CPAP), pHTN, and prior DVTs who presented with bilateral lower extremity cellulitis that did not respond to outpatient therapy, who then developed pneumonia and transaminitis. Retroperitoneal hematoma -Large left psoas/retroperitoneal hematoma seen on CT abdomen -INR has continued to be supratherapeutic despite holding warfarin -Given 10mg vitamin K -Currently stable BP, continue to monitor hemodynamics for signs of hypovolemic shock -- may require transfer if unstable -Hgb 8.9 today -- mildly decreased from 9.2 yesterday -Check CBC & INR in AM Transaminitis - suspected secondary to drug-induced liver injury vs cholangitis - Patient with elevations in Tbili, AST, ALT, AlkPhos, and INR - Gallbladder ultrasound unremarkable - Gastroenterology consulted Suspect cholestatic pattern secondary to DILI (antibiotics (had Augmentin prior to admission and several others since admission) +/- phenytoin). - Would stop any unnecessary antibiotics. - Hold all potentially hepatoxic drugs. - No signs of biliary obstruction on CT to suggest biliary source of infection - Surgery consulted: - defer to GI for MRCP vs ERCP - Start ciprofloxacin for potential intraabdominal infection - HIDA scan unable to be completed due to patient refusal secondary to leg pain - CT abd -- large left psoas/retroperitoneal hematoma; liver, gallbladder, pancreas unremarkable - Likely culprits for drug-induced liver injury include Augmentin patient received before admission, and/or Zosyn - Discontinued APAP, discontinued methylnaltrexone, discontinued Zosyn - Trend CMP daily Leukocytosis - Patient with leukocytosis gradually rising since 09/15 - Procalcitonin negative - ID consult: - Start vancomycin IV x5 days for cellulitis -- considering could be MRSA - Repeat blood culture ordered 09/19/21 and 09/21/21 - Trend daily CBC, CMP Pneumonia - WBC initially trending down steadily since starting on zosyn, though it has since started to rise again - CXR 09/13 showing left basilar and left midlung airspace opacity, may reflect an infectious process - CXR 09/15 with interval progression of the left mid to lower lung zone density, likely combination of small left pleural effusion and airspace opacity - CXR 09/17 with no significant interval change in LLL alveolar opacity characteristic of PNA. Small left pleural effusion. - Seven-day course of Zosyn completed on 09/19/20 - Procalcitonin negative; ongoing bacterial process unlikely - Continue to monitor History of DVT / Chronic Anticoagulation / Supratherapeutic INR--INR goal 2-3 - On Coumadin chronically for history of DVT - Supratherapeutic INR: worsened to a peak of 7.2; since then, continues to gradually improve - Possibly related to drug-induced liver injury as above - Hold warfarin for now, consider restarting at 1/2 dose when INR is in goal range - Trend INR daily Anemia, tachycardia --anemia stable - Patient's Hgb has steadily decrease with supratherapeutic INR - He has remained overall stable but has regularly been tachycardic - Possible may be myelosuppression from illness - No obvious signs of bleeding but will FOBT for possibility of a slow GI bleed - Monitor CBC and hemodynamic status Bilateral LE Cellulitis (L>R)--resolved - Previously on Augmentin in outpatient setting (x2 days) -- unclear if true treatment failure - s/p Dapto/Zosyn -> CFTX for total of 5 days --> doxy (discontinued when WBC continued to rise) --> zosyn (completed 09/19/20) - Appears to have resolved - Continue compression, elevation - WOCN following - appreciate insight, recommendations Constipation - Patient with intermittent constipation and stool burden on KUB - Had been receiving methylnaltrexone every other day, but this was discontinued 09/19/20 due to liver injury noted above - Added docusate, patient already has bisacodyl and Miralax but refusing the latter - Continue to monitor Lower Extremity Edema--stable without significant edema at current time - With severe lower extremity edema much worse his thinks over the last few months, but he has always had larger legs. Review of his chart shows that he has gained 21 kg in the last 7 months of body weight. - Echocardiogram from 07/2020 shows preserved LV EF 55-60%. Possibly contributory from AVANI. No proteinuria, serum albumin not severely decreased. - Suspect home Lasix regimen was inadequate, based on significant edema and the above discovered at admission - Diuresed adequately with IV Lasix --> PO Bumex - Continue Bumex 1mg b.i.d. - Low-sodium diet, compression stockings, elevation, as above - Monitor BMP Lower Extremity Pain - Suspect secondary to the above issues, as well as deconditioning, muscle spasm - In setting of previous L-sided tumor resection, possible this may represent spasticity too - Continue PT, topical NSAIDs, Bengay - Baclofen 5mg decreased to BID from TID to decrease sedation - Oxycodone had been held to decrease sedation as well but required overnight -- reorder PRN but decrease dose to 2.5mg - Uric acid level ordered to evaluate for possible gout Encephalopathy - Suspect was previously metabolic in setting on ongoing cellulitis, but also likely contributory from chronic memory impairment - History of meningitis noted - no signs or active concern for this at this time History of Brain Cancer - Status post 2 resections of brain tumor, with residual left-sided hemiparesis after second surgery Epilepsy - Continue home lamotrigine, phenytoin HTN - Stable. Monitor. Chronic Hemiparesis of L side - Secondary to brain cancer s/p resection - PT/OT HLD - Continue Lipitor AVANI - Patient does not tolerate CPAP, but does have known history of AVANI - Continue to encourage CPAP going forward, especially in setting of b/l LE edema and elevated pulmonary pressures Memory impairment - Supportive care FEN/GI:Low Sodium Code Status:DNR/DNI DVT PPX:Anticoagulated with Coumadin, monitoring INR Dispo: Pending placement at [place] per CM Admission and Anticipated Discharge Date Admission Date: September 02, 2021 Supervising Physician Co-Signing Physician Notes Pt seen and examined in concert with Dr. Mccloud. In agreement with the documented findings as noted in the resident documentation with any exceptions or additions as noted here. Resting in bed, alert and oriented x 3. Ongoing chronic LE pain worse with WB. On examination, S1/S2 nl RRR no MCG. CTAB. Abd NT/ND BS+ve Transaminitis w/ concern for drug induced liver injury from repeated Abx and medical therapy vs possible infection. Patient has raising WBC, elevated procalcitonin. Patient however is refusing MRCP due to back pain. Patient also refused HIDA scan. CT scan did not show dialted biliary tract. Consulted GI for possible ERCP. Consulted Gen surge, for possible cholecystectomy. CT abd/pelvis did show a retroperitoneal hematoma. However, doubt this is source of infection. will give vitamin k AND RECHECK INR in AM. Pneumonia - negative procal today, stable CXR. Course of Zosyn x 6.5 days, d/c'd. Constipation - significant BM with relastor, continue bowel regimen Cellulitis - appears resolved, however, ID is recommending IV vanco for a few days. Else see resident documentation as noted. Subjective Patient seen at bedside this AM. He is somnolent and slurring his words but complains of leg pain. Denies feeling feverish, chills, abd pain, n/v, SOB, cough. Review of Systems Review of Systems: See HPI Physical Exam Physical Exam: General: Alert, oriented to person and place. HEENT: NCAT. Eyes - Sclera are white, anicteric, and without injection. MMM. Cardiac: Normal rate and regular rhythm; S1 and S2 present with no murmurs, rubs, or gallops. Pulmonary: Good respiratory effort with symmetric expansion of the chest. No use of accessory muscles. Lungs were clear to auscultation bilaterally with no crackles or wheezes. Abdominal: Normoactive bowel sounds. Abdomen was soft, nondistended, and non- tender to palpation. Extremities: BLE with chronic skin changes. Left with some scaliness. No open wounds on either leg. No redness or swelling noted. Results & Data Results & Data ([facility]) Vital Signs (Past 12 Hours) Vital Signs Temp Pulse Pulse Resp BP BP Pulse Ox 09/21/21 07:37 37.5 C 114 H 20 127/87 90 09/21/21 03:10 37.7 C H 118 H 20 132/85 90 09/20/21 23:36 113 H 09/20/21 23:09 37.9 C H 115 H 18 134/86 92 Resident Activity Tracking Resident Involvement: Resident Care Provided Care Provided: Adult Hospital Medicine
[2021-09-21 08:04] LABS: Basophils # (auto) 0.02 K/uL (0-0.2); Basophils % (auto) 0.1 %; Eosinophils # (auto) 0.09 K/uL (0-0.5); Eosinophils % (auto) 0.5 %; Hematocrit (blood only) 27.2 % (42-52); Hemoglobin 8.9 g/dL (14.0-18.0); Immature Granulocytes # (auto) 0.17 K/uL (0.00-0.02); Lymphocytes # (auto) 0.87 K/uL (1.2-3.4); Mean Corpuscular Hemoglobin 32.6 pg (25-34); Mean Corpuscular Hgb Conc 32.7 g/dL (32-36); Mean Corpuscular Volume 99.6 fL (80-100); Mean Platelet Volume 9.1 fL (7.4-10.4); Monocytes % (auto) 5.7 %; Neutrophils # (auto) 15.37 K/uL (1.4-6.5); Neutrophils % (auto) 87.7 %; Platelet Count 417 K/uL (130-400); RDW Coefficient of Variation 14.7 % (11.5-14.5); RDW Standard Deviation 51.8 fL (36.4-46.3); Red Blood Count 2.73 M/uL (4.7-6.1); White Blood Count 17.52 K/uL (4.8-10.8)
[2021-09-21 08:28] LABS: Prothrombin Time 51.8 Seconds (9.0-12.0)
[2021-09-21 08:30] LABS: INR 5.9 (0.9-1.1)
[2021-09-21 08:50] LABS: Albumin Globulin Ratio 0.5 (0.9-2); Albumin Level 2.3 gm/dl (3.4-5.0); BUN Creatinine Ratio 21.6 (10-20); Bilirubin,Total 2.4 mg/dl (0.2-1); Calcium 9.1 mg/dl (8.5-10.1); Creatinine Clr Calc Pharmacy 90.7 ml/min; Est GFR (African American) 106.7 ml/min; Est GFR (Non-African American) 92.1 ml/min; Globulin 4.9 gm/dl (2.5-4.0); Total Protein 7.2 gm/dl (6.4-8.2)
--- NOTE | 2021-09-21 09:35 | Pharmacy Report ---
Pharmacy Vanc AUC Short Note - Date of Service September 21, 2021 - Assessment & Plan Assessment 65 year old M started on vancomycin last evening. Previously on augmentin prior to admission. Completed 7 day course of zosyn for pneumonia on 09/19. Previously also on doxycycline, daptomycin, and zosyn earlier on this admission. Leukocytosis trending upward, febrile overnight. Procalcitonin negative yesterday. Blood cultures on 09/19 were negative. History of bilateral LE cellulitis, resolved per notes. Unclear source of infection, ID consulted Day # 2 of antimicrobial therapy. Plan Vancomycin * Patient received loading dose of vancomycin 1750 mg x 1 last evening * Started on vancomycin 1000 mg iv q 12 hrs based upon AUC/TOMMY dosing * AUC/TOMMY is the preferred PK/PD target for vancomycin * AUC guided dosing is effective and associated with decreased risk of nephrotox icity compared to traditional trough targets * Dosing is predicted to achieve a trough level of ~15 mcg/mL is predicted to achieve target AUC/TOMMY of 400-600 mg/L.hr and may be associated with a 11 % ri sk of nephrotoxicity * Will collect a vancomycin level prior to the 0800 dose tomorrow to assess dosing Pharmacy will continue to follow and will adjust dose/frequency as necessary. Thank you.
--- NOTE | 2021-09-21 09:37 | Gastroenterology Progress Note ---
Date of Service September 21, 2021 Assessment & Plan (1) Hx of brain cancer: (2) Generalized epilepsy: (3) Elevated LFTs: Plan: 65 yo male on antibiotics for leg cellulitis, pneumonia. Hx seizure disorder on phenytoin and lamictal. LFTS on admission on 09/02 normal - elevated in a cholestatic pattern increasing today compared to yesterday. US w/o evidence of fatty liver dx/liver mets or bile duct obstruction and pt denies abd pain. Would like higher level imaging of the bile ducts and liver. Will attempt urgent CT today. Please consider repeat/javier culturing to find source of infection. For now dx of exclusion is cholangitis. Consider adding Cipro for coverage of anaerobes. Will check for results of viral serology and phenytoin level. (4) DVT of leg (deep venous thrombosis): (5) CKD (chronic kidney disease) stage 2, GFR 60-89 ml/min: Admission and Anticipated Discharge Date Admission Date: September 02, 2021 Supervising Physician Co-Signing Physician Notes Attending attestation: I have seen, examined this patient, and agree with the findings and above by our mid-level provider TOBIN Quinonez, with the following additions: - Worsened LFT's today - Lethargic today also with worsened WBC CT and Procalcitonin - Beta lactams were stopped yesterday and although concern for undertreating if has biliary obstruction. - Must rule out biliary obstruction today with best imaging possible, do not think that will cooperate for MRCP, then suggest CT scan and if refuses then will at least need RUQ US. - Discuss with ID and see if should broaden out abx coverage including if should add Cipro if want to avoid beta-lactam. If has isolated DILI, treatment options include removal of drugs and +/- steroids, however, would await till infectious etiologies are eliminated. If no signs of biliary obstruction, may require liver biopsy. - Correct INR - Supportive care, consider addition of coverage for Gram negatives and or anaerobes. - Case discussed with primary team Subjective 65 yo male on antibiotics for leg cellulitis, pneumonia. Hx seizure disorder on phenytoin and Lamictal. LFTS on admission on 09/02 normal - now elevated in a cholestatic pattern - stable now since 09/17. US w/o evidence of fatty liver dx/liver mets or bile duct obstruction and pt denies abd pain. Refused CT scan yesterday. Last evening poor appetite. Overnight, vomiting/dry heaving. INR remains supratherapeutic at 5.9. LFTs increased today compared to yesterday and continue in a cholestatic pattern. T Bili 1.2-> 2.4, AST 118->144, ALT 138-> 149, Alk Phos 599->657. WBC 17, afebrile. Lethargic, hard to arouse this morning. Did wake briefly and follow commands for deep breath and to tighten his fist. Review of Systems Review of Systems: ROS: Gen: + weakness, poor appetite Eyes: No eye redness, or pain, no recent vision changes Resp: No SOB, no cough Cardio: + tachycardic, denies irregular beats, denies chest pain GI: Initially c/o abdominal pain then denied, + dry heaves : Denies pain on urination Skin: + very mild jaundice; denies itching or new rashes a total of 12 systems were reviewed all others (-). Physical Exam Constitutional: well developed, + ill appearing, cooperative and + overweight Eyes: PERRL, conjunctivae normal, anicteric sclerae ENMT: external ear and nose normal, oropharynx normal Neck: trachea midline, no thyromegaly Respiratory: normal respiratory effort, lungs clear to auscultation Cardiovascular: Rate/Rhythm: regular rate and regular rhythm Extremities: + edema (mild bilat lower leg edema; Lt > Rt) Gastrointestinal (Abdomen): normal bowel sounds, soft, nontender, no hep atosplenomegaly Skin: normal turgor + mild jaundice Neurologic: PERRL, EOMI, accommodation nl, no face palsy, no dysarthria awake Psychiatric: Orientation: alert Lymphatic: no cervical or axillary lymphadenopathy Results & Data ([facility]) Vital Signs (Past 12 Hours) Vital Signs Temp Pulse Pulse Resp BP BP Pulse Ox 09/21/21 07:37 37.5 C 114 H 20 127/87 90 09/21/21 03:10 37.7 C H 118 H 20 132/85 90 09/20/21 23:36 113 H 09/20/21 23:09 37.9 C H 115 H 18 134/86 92 Laboratory Results WBC 17, Hb 8.9, Hct 27 Plts 417, INR 5.9, Na 134, K 4.0, Cl 101, CO2 27, BUN 18, Cr 0.85 T Bili 2.4, AST 144, ALT 149, Alk Phos 657 Phenytoin level pending. Hep B/C (-); these serologies are pending: CMV, HSV, EB, Parvovirus. Diagnostic Findings US 09/17/21: : Unremarkable sonographic assessment of the right upper quadrant. No gallstones are identified. CBD 5mm. (1) DVT of leg (deep venous thrombosis) Affected thrombotic vein of extremity: unspecified vein of extremity Chronicity: unspecified Laterality: unspecified laterality Qualified Code(s): I82.409 - Acute embolism and thrombosis of unspecified deep veins of unspecified lower extremity
[2021-09-21] MEDS: VANCOMYCIN HCL 1,000 MG in SODIUM CHLORIDE 0.9% 250 ML IV SCH ×2 (10:15→20:20)
[2021-09-21] MEDS: PANTOprazole 40 MG in SYRINGE 0 ML IV SCH ×2 (10:15→20:23)
[2021-09-21] MEDS ORDERED: OPTIRAY 320 100ml IV ONE (11:05)
[2021-09-21] MEDS: lamoTRIgine 100 MG TAB PO SCH ×2 (11:26→20:23)
[2021-09-21] MEDS: PHENYTOIN SODIUM ER 100 MG CAP PO SCH ×2 (11:26→20:23)
[2021-09-21] MEDS: lamoTRIgine 25 MG TAB PO SCH ×2 (11:26→20:22)
[2021-09-21] MEDS: DICLOFENAC SOD 1% GEL 100 GM TUBE EXT SCH ×4 (11:27→20:22)
[2021-09-21] MEDS: TROLAMINE SALICYLATE 10% CRM 255 APPLN/85 GM TUBE EXT SCH ×3 (11:27→20:24)
[2021-09-21] MEDS: BUMETANIDE 1 MG TAB PO SCH ×2 (11:27→20:21)
[2021-09-21] MEDS: BACLOFEN 10 MG TAB PO SCH ×2 (11:27→20:21)
[2021-09-21] MEDS: DOCUSATE SODIUM 100 MG CAP PO SCH ×2 (11:27→20:22)
[2021-09-21] MEDS: POLYETHYLENE (MIRALAX) 17 GM PACK PO SCH ×2 (11:28→20:23)
--- NOTE | 2021-09-21 12:00 | CT Scan Report ---
CT abdomen w IV con HISTORY: elevated LFTs TECHNIQUE: Multiaxial CT images of abdomen performed following the intravenous administration of 93 c c of Optiray 320 contrast. COMPARISON STUDY: Abdominal ultrasound 09/17/2021. Abdomen and pelvis CT 10/05/2020. FINDINGS: Small left pleural effusions. Mild elevation of the right hemidiaphragm. Consolidation with in the basal left lower lobe is nonspecific but favors compressive atelectasis from the pleural effus ion. No pneumoperitoneum or pneumatosis within the visualized abdomen. There are healing left anterio r fifth through seventh rib fractures. Bilateral L5 spondylolysis. No acute fractures identified with in the abdomen. There is a left psoas intramuscular hematoma which expands into the left retroperiton eal space. This is incompletely imaged on this study as the inferior component is not included. This results in mild anterior displacement the left kidney without significant mass effect. The psoas intr amuscular hematoma measures approximately 18 x 10 x 8 cm. No retroperitoneal lymphadenopathy. There i s a left retroaortic renal vein. Normal caliber abdominal aorta. The liver, gallbladder, pancreas, ad renal glands, and spleen are unremarkable. No hydronephrosis. A few bilateral peripelvic renal cysts are noted. There is also a 7 mm hypodense lesion within the left kidney. This is technically too smal l to characterize but also favors a cyst. The visualized loops of bowel show no wall thickening or ob struction. Colonic diverticulosis. No evidence for acute diverticulitis. IMPRESSION: 1. Large left psoas/retroperitoneal hematoma which is incompletely imaged on this study. Recommend fo llow-up dedicated pelvis CT to evaluate the complete extent of this hematoma. 2. Small left pleural effusion. 3. Left lower lobe consolidation favors compressive atelectasis from the pleural effusion. A pneumoni a could also a similar appearance. 4. Healing left anterior rib fractures. No acute fractures identified within the abdomen. 5. These findings discussed with the patient's television and radio repairer, Dr. Henry, at 12:05 AM on 09/21/2021. ACT 112: Negative or not required by law. Electronically signed by: Tal Harris M.D. 09/21/2021 12:07 PM
[2021-09-21] MEDS ORDERED: PHYTONADIONE 5 MG TAB PO STA (12:12)
[2021-09-21] MEDS: CIPROFLOXACIN / D5W 400 MG/200 ML BAG IV SCH ×2 (12:37→23:27)
--- NOTE | 2021-09-21 13:27 | Surgery Consultation ---
Date of Consultation September 21, 2021 Assessment & Plan (1) Elevated LFTs: no acute abdominal findings increasing white count, low grade temps beginning last night ultrasound without gallstones or CBD dilation, HIDA not tolerated supratherapeutic INR (>5) with psoas hematoma defer to GI for MRCP vs ERCP on Sherrell Samanomayda History of Present Illness Attending Physician: All Milligan History of Present Illness 65 y/o male h/o brain cancer and on coumadin for h/o DV, admitted nearly 3 weeks ago for cellulitis/LE edema/encephalopathy. Has had LFT elevations for the past several days and being followed by GI. Thought initially to be drug induced cholestasis, we were now asked to see for possible cholangitis. Patient somnolent, not able to offer history. Allergies Allergy/AdvReac Type Severity Reaction Status Date / Time No Known Allergies Allergy ` Verified 09/02/21 14:28 Home Medications Medication Instructions Recorded Confirmed Type lorazepam 1 mg tablet 1 mg PO DAILY PRN 30 Days #30 tab 09/29/20 09/02/21 Rx phenytoin sodium extended 100 mg 200 mg PO BID 30 Days #120 cap 12/14/20 09/02/21 Rx capsule (Dilantin Extended) acetaminophen 500 mg tablet 1,000 mg PO Q6H PRN 01/30/21 09/02/21 History (Tylenol Extra Strength) lamotrigine 200 mg tablet 200 mg PO BID #60 tab 07/09/21 09/02/21 Rx oxycodone 5 mg tablet 5 mg PO Q8H PRN #31 tab 07/14/21 09/02/21 Rx warfarin 5 mg tablet 5 mg PO .COMPLEX #100 tab 08/09/21 09/02/21 Rx lamotrigine 25 mg tablet 50 mg PO BID 08/12/21 09/02/21 History amoxicillin 875 mg-potassium 1 tab PO BID #20 tab 08/31/21 09/02/21 Rx clavulanate 125 mg tablet (Augmentin) furosemide 20 mg tablet 40 mg PO DAILY #60 tab 08/31/21 09/02/21 Rx atorvastatin 40 mg tablet 40 mg PO DAILY #30 tab 09/02/21 09/02/21 Rx Patient History Medical History Benign hypertension Chronic anticoagulation CKD (chronic kidney disease) stage 2, GFR 60-89 ml/min Closed left clavicular fracture Complex partial seizure DVT of leg (deep venous thrombosis) Fall Hx of brain cancer Glioblastoma Multiforme - 2004 - s/p resection [facility] Memory impairment Meningitis multiple episodes AVANI (obstructive sleep apnea) Small bowel obstruction Surgical History H/O cataract removal with insertion of prosthetic lens H/O shoulder surgery Hx of brain surgery 2003 initial resection for GBM at [facility]; 2007 - 2nd surgery, this time at [facility], ultimately was discovered to have blood clot & scar tissue rather than recurrent cancer Family History Father , in his mid 60s of cardiac issues. CHF (congestive heart failure) Myocardial infarction Denies family history of Brain tumor Ovarian cancer Prostate cancer Breast cancer SBO (small bowel obstruction) Colorectal cancer Social History Smoking Status: Never smoker Second Hand Exposure: No; Hx Alcohol Use: No Hx Substance Use: No Preferred Language: [place] Communication Ability: Effective Icer Machine Required: No Beliefs That Will Affect Care: None marital status: Current Living Situation: Spouse Current Living Situation Comment: lives in [facility]; 2 children 1st marriage; 2 children 2nd marriage current occupational status: retired 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, 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 How many Children do You have: 4 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 Feels Safe at Home: Yes Childhood Exposure to Second-Hand Smoke: No caffeine: No Dental Care, Regularly: Yes Physical Activity Frequency: Does not Exercise Seatbelt Use: never Sunscreen Use: No Assistive Devices: None Review of Systems Review of Systems: Unobtainable due to cognitive status Physical Exam Constitutional: no acute distress Gastrointestinal (Abdomen): Inspection/Auscultation: abdomen normal to inspection Percussion/Palpation: abdomen soft; abdomen nontender (appears) Musculoskeletal: Extremities: extremities normal to inspection Results & Data ([facility]) Vital Signs (Past 12 Hours) Vital Signs Temp Pulse Resp BP Pulse Ox 09/21/21 12:08 37.1 C 107 H 20 113/75 90 09/21/21 07:37 37.5 C 114 H 20 127/87 90 09/21/21 03:10 37.7 C H 118 H 20 132/85 90 PG Care Time/CCT Total # of Minutes Spent Total Time Spent with Patient: Total time spent is greater than 50% in coordination of care (as documented) at patient's floor/unit and/or counseling patient: Coding Level of Care Code 47175 Inpt Consult Level 4 Diagnoses Elevated LFTs R79.89
--- NOTE | 2021-09-21 15:21 | CT Scan Report ---
CT pelvis wo con HISTORY: Evaluate extent of left retroperitoneal hematoma seen on abdominal CT. TECHNIQUE: Multiaxial CT images the pelvis were performed without contrast and reformatted in the sag ittal and coronal plane. COMPARISON STUDY: Abdominal CT 09/21/2021. FINDINGS: There is again noted a large left psoas intramuscular hematoma with a small component of th e hemorrhage extending into the left retroperitoneal space. The majority of the hematoma seen on the same day abdominal CT. There is a small component that extends into the left iliopsoas muscle and lef t pelvic sidewall. Small subcutaneous hematoma seen within the left lateral hip measuring approximate ly 5.2 x 2.2 cm. This retroperitoneal hematoma results in mild mass effect along the adjacent left il iac vessels. Contrast within the bladder from the recent CT examination. There is also gas within the bladder suggesting prior catheterization. Small fat-containing bilateral inguinal hernias are noted. A few colonic diverticula. No evidence for acute diverticulitis. The visualized loops of bowel show no wall thickening or obstruction. Normal appendix. The prostate gland is normal in size. No pelvic f ree fluid. The left retroperitoneal hemorrhage partially surrounds the mid left ureter. However, ther e is no left-sided hydronephrosis. There is a left total hip arthroplasty. No acute fractures the pel vis or hips. Bilateral L5 spondylolysis with associated grade 1 anterolisthesis. IMPRESSION: 1. Redemonstration of the large left psoas intramuscular/retroperitoneal hematoma. The majority of th e hematoma is seen on the same day abdominal CT. There is a small component that extends into the lef t iliopsoas muscle and left pelvic sidewall. 2. There is a small subcutaneous hematoma within the left lateral hip. 3. No acute fractures within the pelvis or hips. ACT 112: Negative or not required by law. Electronically signed by: Tal Harris M.D. 09/21/2021 3:20 PM
[2021-09-21] MEDS: metroNIDAZOLE 500 MG TAB PO SCH ×2 (17:26→23:27)
[2021-09-21] MEDS ORDERED: oxyCODONE HCL IR 5 MG TAB (IMMEDIATE RELEASE) PO PRN (18:27)
--- NOTE | 2021-09-21 18:50 | Communication Note ---
Date of Service: September 21, 2021 In light of recent discovery of retroperitoneal hematoma, attempted to consent patient for blood transfusion if it were needed. He stated that he was not ready to make this decision at this point and would want to decide if the situation arose. He refused to sign consent or refusal of blood products at this time. Offered to call and have her consent, patient refused this at as well. RN in room during conversation of risks/benefits and during patient's refusal to decide.
--- NOTE | 2021-09-21 20:32 | Billing Data ---
Date of Service September 21, 2021 Coding Level of Care Code 99887 Subseq Hosp Care Lvl 3
[2021-09-22 02:17] LABS: Hepatitis A Antibody IgM NON-REACTIVE (NON-REACTIVE); Hepatitis B Core Antibody IgM NON-REACTIVE (NON-REACTIVE)
[2021-09-22] MEDS: oxyCODONE HCL IR 5 MG TAB (IMMEDIATE RELEASE) PO PRN (03:55)
[2021-09-22] MEDS: metroNIDAZOLE 500 MG TAB PO SCH ×3 (05:57→22:04)
--- NOTE | 2021-09-22 07:22 | Hospitalist Progress Note ---
Date of Service September 22, 2021 Assessment & Plan (1) Elevated liver enzymes: Plan: Balbir is a 65-year-old male with history of AVANI (unable to tolerate CPAP), pHTN, and prior DVTs who presented with bilateral lower extremity cellulitis that did not respond to outpatient therapy, who then developed pneumonia and transaminitis. Retroperitoneal hematoma -Large left psoas/retroperitoneal hematoma seen on CT abdomen -INR now 1.1 after Vitamin K 10mg on 09/21 -Currently stable BP, continue to monitor hemodynamics for signs of hypovolemic shock -- may require transfer if unstable or signs og continued bleed -Hgb 8.8 -- stable from 8.9 yesterday - Surgery c/s: - if evidence of continued bleeding may need IR. doubtful as usually these are self limited. -Check CBC & INR in AM Transaminitis - suspected secondary to drug-induced liver injury vs cholangitis - Patient with elevations in Tbili, AST, ALT, AlkPhos, and INR - Gallbladder ultrasound unremarkable - HIDA scan unable to be completed due to patient refusal secondary to leg pain - CT abd -- large left psoas/retroperitoneal hematoma; liver, gallbladder, pancreas unremarkable - Gastroenterology consulted -- intially thought to be DILI, recs as below - No acute indication for EUS/ERCP - Await liver serologies - Pending trend of labs can consider LB - Continue supportive measures - Likely culprits for drug-induced liver injury include Augmentin patient received before admission, and/or Zosyn - Discontinued APAP, discontinued methylnaltrexone, discontinued Zosyn - Liver serologies resulted positive for EBV IgM -- possible this could be the cause transaminitis - Surgery consulted: - defer to GI for MRCP vs ERCP - no gallstones. - no indication for cholecystectomy at this time. - Continue ciprofloxacin and metronidazole for potential intraabdominal infection - Trend CMP daily Leukocytosis - Patient with leukocytosis gradually rising since 09/15 - Procalcitonin negative - ID consult: - Start vancomycin IV x5 days for cellulitis -- considering could be MRSA - Repeat blood culture ordered 09/19/21 (NGTD) and 09/21/21 - Trend daily CBC, CMP Pneumonia -- resolved - WBC initially trending down steadily since starting on zosyn, though it has since started to rise again - CXR 09/13 showing left basilar and left midlung airspace opacity, may reflect an infectious process - CXR 09/15 with interval progression of the left mid to lower lung zone density, likely combination of small left pleural effusion and airspace opacity - CXR 09/17 with no significant interval change in LLL alveolar opacity characteristic of PNA. Small left pleural effusion. - Seven-day course of Zosyn completed on 09/19/20 - Continue to monitor History of DVT / Chronic Anticoagulation / Supratherapeutic INR--INR goal 2-3 - On Coumadin chronically for history of DVT - Supratherapeutic INR: worsened to a peak of 7.2; since then, continues to gradually improve - Possibly related to drug-induced liver injury as above - Hold warfarin for now, consider restarting at 1/2 dose when INR is in goal range - INR reversed 09/21 with 10mg vitamin K due to retroperitoneal hematoma -- now at 1.1 - Trend INR daily Anemia, tachycardia --anemia stable - Patient's Hgb has steadily decreased with supratherapeutic INR - He has remained overall stable but has regularly been tachycardic - Possible may be myelosuppression from illness - Retroperitoneal hematoma on CT as above - Monitor CBC and hemodynamic status Bilateral LE Cellulitis (L>R) - Previously on Augmentin in outpatient setting (x2 days) -- unclear if true treatment failure - s/p Dapto/Zosyn -> CFTX for total of 5 days --> doxy (discontinued when WBC continued to rise) --> zosyn (completed 09/19/20) - On IV vanc per ID as above - Continue compression, elevation - WOCN following - appreciate insight, recommendations Constipation - Patient with intermittent constipation and stool burden on KUB - Had been receiving methylnaltrexone every other day, but this was discontinued 09/19/20 due to liver injury noted above - Added docusate, patient already has bisacodyl and Miralax but refusing the latter - Continue to monitor Lower Extremity Edema--stable without significant edema at current time - With severe lower extremity edema much worse his thinks over the last few months, but he has always had larger legs. Review of his chart shows that he has gained 21 kg in the last 7 months of body weight. - Echocardiogram from 07/2020 shows preserved LV EF 55-60%. Possibly contributory from AVANI. No proteinuria, serum albumin not severely decreased. - Suspect home Lasix regimen was inadequate, based on significant edema and the above discovered at admission - Diuresed adequately with IV Lasix --> PO Bumex - Continue Bumex 1mg b.i.d. - Low-sodium diet, compression stockings, elevation, as above - Monitor BMP Lower Extremity Pain - Suspect secondary to the above issues, as well as deconditioning, muscle spasm - In setting of previous L-sided tumor resection, possible this may represent spasticity too - Continue PT, topical NSAIDs, Bengay - Baclofen 5mg decreased to BID from TID to decrease sedation - Oxycodone had been held to decrease sedation as well but required overnight -- reorder PRN but decrease dose to 2.5mg - Uric acid level ordered to evaluate for possible gout Encephalopathy - Suspect was previously metabolic in setting on ongoing cellulitis, but also likely contributory from chronic memory impairment - History of meningitis noted - no signs or active concern for this at this time History of Brain Cancer - Status post 2 resections of brain tumor, with residual left-sided hemiparesis after second surgery Epilepsy - Continue home lamotrigine, phenytoin HTN - Stable. Monitor. Chronic Hemiparesis of L side - Secondary to brain cancer s/p resection - PT/OT HLD - Continue Lipitor AVANI - Patient does not tolerate CPAP, but does have known history of AVANI - Continue to encourage CPAP going forward, especially in setting of b/l LE edema and elevated pulmonary pressures Memory impairment - Supportive care FEN/GI:Low Sodium Code Status:DNR/DNI DVT PPX:Coumadin on hold due to retroperitoneal bleed, monitor INR Dispo: Remain Med/Tele Admission and Anticipated Discharge Date Admission Date: September 02, 2021 Supervising Physician Co-Signing Physician Notes Pt seen and examined in concert with Dr. Mccloud. In agreement with the documented findings as noted in the resident documentation with any exceptions or additions as noted here. Resting in bed, alert and oriented x 3. Ongoing chronic LE pain worse with WB. On examination, S1/S2 nl RRR no MCG. CTAB. Abd NT/ND BS+ve Transaminitis w/ concern for drug induced liver injury from repeated Abx and medical therapy vs possible infection. Patient has raising WBC, elevated procalcitonin. Patient however is refusing MRCP due to back pain. Patient also refused HIDA scan. CT scan did not show dilated biliary tract. Consulted GI for possible ERCP. Consulted Gen surge, for possible cholecystectomy. Both feel that this does not require any procedures at this time. Patient currently is improving today, in regards to LFTs and WBC. Unsure of source, but will continue regimen for at least 5 days and monitor, CT abd/pelvis did show a retroperitoneal hematoma. However, doubt this is source of infection. INR has been reversed.will trend. place om SCD. Pneumonia - negative procal today, stable CXR. Course of Zosyn x 6.5 days, d/c'd. Constipation - significant BM with relastor, continue bowel regimen Cellulitis - appears resolved, however, ID is recommending IV vanco for a few days. Subjective Seen at bedside this AM. Sleeping comfortably when I arrive. Upon awakening him he is very somnolent but complains of significant left leg pain. Denies CP, SOB, abd pain, n/v, fever, chills. Review of Systems Review of Systems: See HPI Physical Exam Physical Exam: General: Somnolent, oriented x2. Cardiac: Normal rate and regular rhythm; S1 and S2 present with no murmurs, rubs, or gallops. Pulmonary: Good respiratory effort with symmetric expansion of the chest. No use of accessory muscles. Lungs were clear to auscultation bilaterally with no crackles or wheezes. Abdominal: Normoactive bowel sounds. Abdomen was soft, nondistended, and non- tender to palpation. Extremities: BLE with chronic skin changes. Left with some scaliness. No open wounds on either leg. No redness or swelling noted. Results & Data Results & Data ([facility]) Vital Signs (Past 12 Hours) Vital Signs Temp Pulse Pulse Resp BP Pulse Ox 09/22/21 03:13 37 C 64 18 129/80 95 09/21/21 23:34 109 H 09/21/21 23:33 36.9 C 64 16 136/64 93 09/21/21 19:57 36.9 C 70 20 131/74 95 Resident Activity Tracking Resident Involvement: Resident Care Provided Care Provided: Adult [facility] Medicine
[2021-09-22] MEDS ORDERED: VANCOMYCIN TROUGH ONE (07:30)
[2021-09-22 07:47] LABS: INR 1.1 (0.9-1.1); Prothrombin Time 10.8 Seconds (9.0-12.0)
--- NOTE | 2021-09-22 08:06 | Surgery Progress Note ---
Date of Service September 22, 2021 Assessment & Plan (1) Elevated LFTs: Plan: repeat LFT's pending. no gallstones. no indication for cholecystectomy at this time. please call us if any questions or concerns. (2) Psoas hematoma, left, secondary to anticoagulant therapy: Plan: monitor H/H INR improved if evidence of continued bleeding may need IR. doubtful as usually these are self limited. Admission and Anticipated Discharge Date Admission Date: September 02, 2021 Subjective pt seen. main c/o is pain in left groin/leg. more alert today and oriented. Physical Exam Constitutional: WD/WN, vitals as above no acute distress and not ill appearing Eyes: PERRL, conjunctivae normal, anicteric sclerae EOM intact bilaterally ENMT: external ear and nose normal, oropharynx normal Ears: no hearing impairment Neck: trachea midline, no thyromegaly Respiratory: normal respiratory effort; no respiratory distress and does not use accessory muscles Cardiovascular: Rate/Rhythm: regular rate and regular rhythm Gastrointestinal (Abdomen): soft. +LLQ ttp. no peritoneal signs. Skin: no rashes, warm and dry Psychiatric: Orientation: alert, oriented x 3 and cooperative Results & Data ([facility]) Vital Signs (Past 12 Hours) Vital Signs Temp Pulse Pulse Resp BP Pulse Ox 09/22/21 07:32 112 H 09/22/21 03:13 37 C 64 18 129/80 95 09/21/21 23:34 109 H 09/21/21 23:33 36.9 C 64 16 136/64 93 PG Care Time/CCT Total # of Minutes Spent Total Time Spent with Patient: Total time spent is greater than 50% in coordination of care (as documented) at patient's floor/unit and/or counseling patient: Coding Level of Care Code 84189 Subseq Hosp Care Lvl 3 Diagnoses Elevated LFTs R79.89 Psoas hematoma, left, secondary to anticoagulant therapy S30.1XXA
[2021-09-22 08:07] LABS: Albumin Level 2.3 gm/dl (3.4-5.0); Creatinine Clr Calc Pharmacy 92.8 ml/min; Est GFR (African American) 107.8 ml/min
[2021-09-22 08:10] LABS: Total Protein 7.2 gm/dl (6.4-8.2)
[2021-09-22 08:34] LABS: Bilirubin,Total 1.8 mg/dl (0.2-1)
[2021-09-22 08:46] LABS: Basophils # (auto) 0.02 K/uL (0-0.2); Basophils % (auto) 0.2 %; Eosinophils % (auto) 1.5 %; Hematocrit (blood only) 26.7 % (42-52); Hemoglobin 8.8 g/dL (14.0-18.0); Immature Granulocytes # (auto) 0.15 K/uL (0.00-0.02); Immature Granulocytes % (auto) 1.1 %; Lymphocytes # (auto) 0.86 K/uL (1.2-3.4); Lymphocytes % (auto) 6.5 %; Mean Corpuscular Hemoglobin 32.8 pg (25-34); Mean Corpuscular Volume 99.6 fL (80-100); Monocytes % (auto) 6.8 %; Neutrophils # (auto) 11.09 K/uL (1.4-6.5); Neutrophils % (auto) 83.9 %; Platelet Count 423 K/uL (130-400); Red Blood Count 2.68 M/uL (4.7-6.1); White Blood Count 13.22 K/uL (4.8-10.8)
[2021-09-22] MEDS: BACLOFEN 10 MG TAB PO SCH ×2 (09:12→22:04)
[2021-09-22] MEDS: PHENYTOIN SODIUM ER 100 MG CAP PO SCH ×2 (09:13→22:06)
[2021-09-22] MEDS: lamoTRIgine 100 MG TAB PO SCH ×2 (09:13→22:04)
[2021-09-22] MEDS: lamoTRIgine 25 MG TAB PO SCH ×2 (09:29→22:06)
[2021-09-22] MEDS: BUMETANIDE 1 MG TAB PO SCH ×2 (09:29→22:03)
[2021-09-22] MEDS: DOCUSATE SODIUM 100 MG CAP PO SCH ×2 (09:29→22:05)
[2021-09-22] MEDS: DICLOFENAC SOD 1% GEL 100 GM TUBE EXT SCH ×4 (09:30→22:05)
[2021-09-22] MEDS: VANCOMYCIN HCL 1,000 MG in SODIUM CHLORIDE 0.9% 250 ML IV SCH ×2 (09:30→19:51)
--- NOTE | 2021-09-22 09:30 | Gastroenterology Progress Note ---
Date of Service September 22, 2021 Assessment & Plan (1) Elevated LFTs: Plan: 65 year old male admitted w/ PNA and cellulitis, GI asked to evaluate for elevated LFTs, abd us without biliary dilation, gallstones or biliary obstruction on ABD US and CT but mention of 18 cm retroperitoneal hematoma w/ INR 6, now reversed. No acute indication for EUS/ERCP Await liver serologies Pending trend of labs can consider LB Continue supportive measures Thank you for allowing us to participate in the care of this patient. Please call with any acute changes, questions or concerns. Please see addendum below with additional recommendation from my supervising physician. Would Admission and Anticipated Discharge Date Admission Date: September 02, 2021 Supervising Physician Co-Signing Physician Notes Attending attestation I have seen, examined this patient, and agree with the findings and above by our mid-level provider TOBIN Maldonado, with the following additions Mentation is better improvements with vitals continue to look for occult infection, does not appear to be a biliary source without obvious. Current antibiotics as he is improved on this. Continue to monitor his blood count for concern of bleeding in the retroperitoneum. If still have high level concern for bili obstruction MRCP would be the next best test, however there is no even subtle findings of assuming this is drug-induced liver injury, given his unknown infection and overall state would hold steroids at this time. Subjective Pt was seen and evaluated, chart reviewed. Voicing unbearable leg and groin pain Denies abd pain No nausea, vomiting Pelvis CT: . Redemonstration of the large left psoas intramuscular/retroperitoneal hematoma. The majority of the hematoma is seen on the same day abdominal CT. There is a small component that extends into the left iliopsoas muscle and left pelvic sidewall. 2. There is a small subcutaneous hematoma within the left lateral hip. 3. No acute fractures within the pelvis or hips. CTAP: . Large left psoas/retroperitoneal hematoma which is incompletely imaged on this study. Recommend follow-up dedicated pelvis CT to evaluate the complete extent of this hematoma. 2. Small left pleural effusion. 3. Left lower lobe consolidation favors compressive atelectasis from the pleural effusion. A pneumonia could also a similar appearance. 4. Healing left anterior rib fractures. No acute fractures identified within the abdomen. 5. 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 Henry, at 12:05 AM on 09/21/2021. HIDA: The study was prematurely terminated. Therefore the biliary tree and gallbladder were unable to be evaluated. ABD US: : Unremarkable sonographic assessment of the right upper quadrant. No gallstones are identified. Review of Systems Review of Systems: All systems reviewed & are unremarkable except as noted in HPI & below Physical Exam Constitutional: WD/WN, vitals as above Respiratory: normal respiratory effort; no respiratory distress and no labored breathing Cardiovascular: Rate/Rhythm: regular rate Gastrointestinal (Abdomen): Percussion/Palpation: abdomen soft; abdomen nontender, no guarding, abdomen not rigid and no abdominal mass Skin: no rashes, warm and dry Results & Data ([facility]) Vital Signs (Past 12 Hours) Vital Signs Temp Pulse Pulse Resp BP Pulse Ox 09/22/21 08:01 36.6 C 112 H 24 130/82 90 09/22/21 07:32 112 H 09/22/21 03:13 37 C 64 18 129/80 95 09/21/21 23:34 109 H 09/21/21 23:33 36.9 C 64 16 136/64 93 Laboratory Results 09/22/21 09/22/21 09/22/21 Range/Units 09:14 07:20 07:20 WBC 13.22 H (4.8-10.8) K/uL RBC 2.68 L (4.7-6.1) M/uL Hgb 8.8 L (14.0-18.0) g/dL Hct 26.7 L (42-52) % MCV 99.6 (80-100) fL MCH 32.8 (25-34) pg MCHC 33.0 (32-36) g/dL Plt Count 423 H (130-400) K/uL Immature Gran % (Auto) 1.1 % Neut % (Auto) 83.9 % Lymph % (Auto) 6.5 % [place] % (Auto) 6.8 % Eos % (Auto) 1.5 % Baso % (Auto) 0.2 % Neut # (Auto) 11.09 H (1.4-6.5) K/uL Lymph # (Auto) 0.86 L (1.2-3.4) K/uL [place] # (Auto) 0.90 H (0.11-0.59) K/uL Eos # (Auto) 0.20 (0-0.5) K/uL Baso # (Auto) 0.02 (0-0.2) K/uL Immature Gran # (Auto) 0.15 H (0.00-0.02) K/uL PT (9.0-12.0) Seconds INR (0.9-1.1) Creatinine (0.6-1.4) mg/dl Est Cr Clr Drug Dosing ml/min Est GFR ( Amer) ml/min Est GFR (Non-Af Amer) ml/min Lactate (0.4-2.0) mmol/L Total Bilirubin (0.2-1) mg/dl Direct Bilirubin (0-0.2) mg/dl AST (15-37) U/L ALT (12-78) Alkaline Phosphatase (45-117) U/L Total Creatine Kinase 640 H (39-308) U/L Total Protein (6.4-8.2) gm/dl Albumin (3.4-5.0) gm/dl Procalcitonin Pending (0-0.5) ng/ml Vancomycin Trough (See Comment) mcg/ml Phenytoin (10-20) mcg/ml Hepatitis A IgM Ab (NON-REACTIVE) Hep B Core IgM Ab (NON-REACTIVE) 09/22/21 09/22/21 09/22/21 Range/Units 07:18 07:18 07:18 WBC (4.8-10.8) K/uL RBC (4.7-6.1) M/uL Hgb (14.0-18.0) g/dL Hct (42-52) % MCV (80-100) fL MCH (25-34) pg MCHC (32-36) g/dL Plt Count (130-400) K/uL Immature Gran % (Auto) % Neut % (Auto) % Lymph % (Auto) % [place] % (Auto) % Eos % (Auto) % Baso % (Auto) % Neut # (Auto) (1.4-6.5) K/uL Lymph # (Auto) (1.2-3.4) K/uL [place] # (Auto) (0.11-0.59) K/uL Eos # (Auto) (0-0.5) K/uL Baso # (Auto) (0-0.2) K/uL Immature Gran # (Auto) (0.00-0.02) K/uL PT 10.8 (9.0-12.0) Seconds INR 1.1 (0.9-1.1) Creatinine 0.83 (0.6-1.4) mg/dl Est Cr Clr Drug Dosing 92.8 ml/min Est GFR ( Amer) 107.8 ml/min Est GFR (Non-Af Amer) 93.0 ml/min Lactate (0.4-2.0) mmol/L Total Bilirubin 1.8 H (0.2-1) mg/dl Direct Bilirubin 1.0 H (0-0.2) mg/dl AST 236 H (15-37) U/L ALT 200 H (12-78) Alkaline Phosphatase 642 H (45-117) U/L Total Creatine Kinase (39-308) U/L Total Protein 7.2 (6.4-8.2) gm/dl Albumin 2.3 L (3.4-5.0) gm/dl Procalcitonin (0-0.5) ng/ml Vancomycin Trough 13.8 (See Comment) mcg/ml Phenytoin (10-20) mcg/ml Hepatitis A IgM Ab (NON-REACTIVE) Hep B Core IgM Ab (NON-REACTIVE) 09/21/21 09/21/21 09/21/21 Range/Units 15:45 07:32 07:29 WBC (4.8-10.8) K/uL RBC (4.7-6.1) M/uL Hgb (14.0-18.0) g/dL Hct (42-52) % MCV (80-100) fL MCH (25-34) pg MCHC (32-36) g/dL Plt Count (130-400) K/uL Immature Gran % (Auto) % Neut % (Auto) % Lymph % (Auto) % [place] % (Auto) % Eos % (Auto) % Baso % (Auto) % Neut # (Auto) (1.4-6.5) K/uL Lymph # (Auto) (1.2-3.4) K/uL [place] # (Auto) (0.11-0.59) K/uL Eos # (Auto) (0-0.5) K/uL Baso # (Auto) (0-0.2) K/uL Immature Gran # (Auto) (0.00-0.02) K/uL PT (9.0-12.0) Seconds INR (0.9-1.1) Creatinine (0.6-1.4) mg/dl Est Cr Clr Drug Dosing ml/min Est GFR ( Amer) ml/min Est GFR (Non-Af Amer) ml/min Lactate 1.2 (0.4-2.0) mmol/L Total Bilirubin (0.2-1) mg/dl Direct Bilirubin (0-0.2) mg/dl AST (15-37) U/L ALT (12-78) Alkaline Phosphatase (45-117) U/L Total Creatine Kinase (39-308) U/L Total Protein (6.4-8.2) gm/dl Albumin (3.4-5.0) gm/dl Procalcitonin 4.13 H (0-0.5) ng/ml Vancomycin Trough (See Comment) mcg/ml Phenytoin 3.1 L (10-20) mcg/ml Hepatitis A IgM Ab (NON-REACTIVE) Hep B Core IgM Ab (NON-REACTIVE) 09/20/21 Range/Units 15:06 WBC (4.8-10.8) K/uL RBC (4.7-6.1) M/uL Hgb (14.0-18.0) g/dL Hct (42-52) % MCV (80-100) fL MCH (25-34) pg MCHC (32-36) g/dL Plt Count (130-400) K/uL Immature Gran % (Auto) % Neut % (Auto) % Lymph % (Auto) % [place] % (Auto) % Eos % (Auto) % Baso % (Auto) % Neut # (Auto) (1.4-6.5) K/uL Lymph # (Auto) (1.2-3.4) K/uL [place] # (Auto) (0.11-0.59) K/uL Eos # (Auto) (0-0.5) K/uL Baso # (Auto) (0-0.2) K/uL Immature Gran # (Auto) (0.00-0.02) K/uL PT (9.0-12.0) Seconds INR (0.9-1.1) Creatinine (0.6-1.4) mg/dl Est Cr Clr Drug Dosing ml/min Est GFR ( Amer) ml/min Est GFR (Non-Af Amer) ml/min Lactate (0.4-2.0) mmol/L Total Bilirubin (0.2-1) mg/dl Direct Bilirubin (0-0.2) mg/dl AST (15-37) U/L ALT (12-78) Alkaline Phosphatase (45-117) U/L Total Creatine Kinase (39-308) U/L Total Protein (6.4-8.2) gm/dl Albumin (3.4-5.0) gm/dl Procalcitonin (0-0.5) ng/ml Vancomycin Trough (See Comment) mcg/ml Phenytoin (10-20) mcg/ml Hepatitis A IgM Ab NON-REACTIVE (NON-REACTIVE) Hep B Core IgM Ab NON-REACTIVE (NON-REACTIVE)
[2021-09-22] MEDS: POLYETHYLENE (MIRALAX) 17 GM PACK PO SCH ×2 (09:31→22:06)
[2021-09-22] MEDS: PANTOprazole 40 MG in SYRINGE 0 ML IV SCH ×2 (09:31→22:03)
[2021-09-22] MEDS: TROLAMINE SALICYLATE 10% CRM 255 APPLN/85 GM TUBE EXT SCH ×3 (09:32→22:07)
[2021-09-22] MEDS: CIPROFLOXACIN / D5W 400 MG/200 ML BAG IV SCH ×2 (11:18→23:39)
--- NOTE | 2021-09-22 12:45 | Pharmacy Report ---
Pharmacy Vanc AUC Short Note - Date of Service September 22, 2021 - Assessment & Plan Assessment 65 year old M started on vancomycin IV the evening of 09/20. Previously on Augmentin prior to admission. Completed 7 day course of Zosyn for pneumonia on 09/19. Previously also on doxycycline, daptomycin, and Zosyn earlier on this admission. History of bilateral LE cellulitis, resolved per notes. Unclear source of infection, ID consulted and recommended a 5 day course of Vancomycin for cellulitis. Today is Day 3 Vancomycin. Primary team added Ciprofloxacin IV + Flagyl PO yesterday 09/21 for possible intraabd infection (?cholangitis) and GI was consulted. Plan Vancomycin * AUC/TOMMY is the preferred PK/PD target for vancomycin * AUC guided dosing is effective and associated with decreased risk of nephrotoxicity compared to traditional trough targets * Renal fxn stable / unchanged. * Current dose: 1000mg IV Q 12 hrs * Trough level of 13.8 mcg/mL was obtained this AM prior to 3rd maint dose. This level is predicted to achieve target AUC/TOMMY of 400-600 mg/L.hr and may be associated with a 10 % risk of nephrotoxicity. Will continue the same dose. * Will not recheck a level unless therapy extended beyond 5 days total therapy or if there is an acute change in renal fxn. Pharmacy will continue to follow and will adjust dose/frequency as necessary. Thank you.
[2021-09-22 14:16] LABS: CMV IgM Antibody <30.00 AU/mL; Herpes Simplex Ab IgG-1 >58.00 index; Herpes Simplex Ab IgG-2 <0.90 index; Parvovirus IgG 4.5 (<0.9); Parvovirus IgM 0.1 (<0.9)
--- NOTE | 2021-09-22 20:20 | Billing Data ---
Date of Service September 22, 2021 Coding Level of Care Code 52153 Subseq Hosp Care Lvl 3
[2021-09-23] MEDS: oxyCODONE HCL IR 5 MG TAB (IMMEDIATE RELEASE) PO PRN ×2 (02:17→10:14)
[2021-09-23] MEDS: metroNIDAZOLE 500 MG TAB PO SCH ×3 (05:33→20:37)
[2021-09-23 07:51] LABS: Basophils # (auto) 0.01 K/uL (0-0.2); Basophils % (auto) 0.1 %; Eosinophils # (auto) 0.29 K/uL (0-0.5); Eosinophils % (auto) 3.1 %; Hematocrit (blood only) 28.3 % (42-52); Hemoglobin 9.1 g/dL (14.0-18.0); Immature Granulocytes # (auto) 0.14 K/uL (0.00-0.02); Immature Granulocytes % (auto) 1.5 %; Lymphocytes # (auto) 0.84 K/uL (1.2-3.4); Lymphocytes % (auto) 8.9 %; Mean Corpuscular Hemoglobin 32.4 pg (25-34); Mean Corpuscular Hgb Conc 32.2 g/dL (32-36); Mean Corpuscular Volume 100.7 fL (80-100); Mean Platelet Volume 9.1 fL (7.4-10.4); Monocytes # (auto) 0.77 K/uL (0.11-0.59); Monocytes % (auto) 8.2 %; Neutrophils # (auto) 7.36 K/uL (1.4-6.5); Neutrophils % (auto) 78.2 %; Platelet Count 438 K/uL (130-400); RDW Coefficient of Variation 14.7 % (11.5-14.5); RDW Standard Deviation 53.1 fL (36.4-46.3); Red Blood Count 2.81 M/uL (4.7-6.1); White Blood Count 9.41 K/uL (4.8-10.8)
[2021-09-23 08:02] LABS: Prothrombin Time 10.3 Seconds (9.0-12.0)
--- NOTE | 2021-09-23 08:09 | Hospitalist Progress Note ---
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 Retroperitoneal hematoma -Large left psoas/retroperitoneal hematoma seen on CT abdomen -INR now 1.1 after Vitamin K 10mg on 09/21 -- INR remains stable now in normal range -Currently stable BP, continue to monitor hemodynamics for signs of hypovolemic shock -- may require transfer if unstable or signs og continued bleed -Hgb remained stable today and is actually improving somewhat - Surgery c/s: - if evidence of continued bleeding may need IR. doubtful as usually these are self limited. -Check CBC & INR in AM Transaminitis - Patient with elevations in Tbili, AST, ALT, AlkPhos, and INR - Gallbladder ultrasound unremarkable - HIDA scan unable to be completed due to patient refusal secondary to leg pain - CT abd -- large left psoas/retroperitoneal hematoma; liver, gallbladder, pancreas unremarkable - Gastroenterology consulted -- initially thought to be DILI, recs as below - No acute indication for EUS/ERCP - Await liver serologies - Pending trend of labs can consider LB - EBV IGM positive, likely culprit of LFT's - Discontinued APAP, discontinued methylnaltrexone, discontinued Zosyn - Liver serologies resulted positive for EBV IgM -- possible this could be the cause transaminitis - Surgery consulted: - defer to GI for MRCP vs ERCP - no gallstones. - no indication for cholecystectomy at this time. - Continue ciprofloxacin and metronidazole for potential intraabdominal infection -- transaminitis continues to improve - Trend CMP daily Leukocytosis - resolved - Patient with leukocytosis gradually rising since 09/15 -- now resolved since 09/23 - Procalcitonin negative - ID consult: - Start vancomycin IV x5 days (through 09/24) for cellulitis -- considering could be MRSA - Repeat blood culture ordered 09/19/21 and 09/21/21 both with NGTD - Trend daily CBC, CMP Pneumonia -- resolved - WBC initially trending down steadily since starting on zosyn, though it has since started to rise again - CXR 09/13 showing left basilar and left midlung airspace opacity, may reflect an infectious process - CXR 09/15 with interval progression of the left mid to lower lung zone density, likely combination of small left pleural effusion and airspace opacity - CXR 09/17 with no significant interval change in LLL alveolar opacity characteristic of PNA. Small left pleural effusion. - Seven-day course of Zosyn completed on 09/19/20 - Continue to monitor History of DVT / Chronic Anticoagulation / Supratherapeutic INR--INR goal 2-3 - On Coumadin chronically for history of DVT - Supratherapeutic INR: worsened to a peak of 7.2; since then, continues to gradually improve - Possibly related to drug-induced liver injury as above - Hold warfarin for now, consider restarting at 1/2 dose when INR is in goal range - INR reversed 09/21 with 10mg vitamin K due to retroperitoneal hematoma - Consider restarting as Hgb continues to stabilize - Trend INR daily Anemia, tachycardia --anemia stable - Patient's Hgb has steadily decreased with supratherapeutic INR - He has remained overall stable but has regularly been tachycardic - Retroperitoneal hematoma on CT as above - Monitor CBC and hemodynamic status Bilateral LE Cellulitis (L>R) - Previously on Augmentin in outpatient setting (x2 days) -- unclear if true treatment failure - s/p Dapto/Zosyn -> CFTX for total of 5 days --> doxy (discontinued when WBC continued to rise) --> zosyn (completed 09/19/20) - On IV vanc per ID as above - Continue compression, elevation - WOCN following - appreciate insight, recommendations Constipation - Patient with intermittent constipation and stool burden on KUB - Had been receiving methylnaltrexone every other day, but this was discontinued 09/19/20 due to liver injury noted above - Added docusate, patient already has bisacodyl and Miralax but refusing the latter - Continue to monitor Lower Extremity Edema--stable without significant edema at current time - With severe lower extremity edema much worse his thinks over the last few months, but he has always had larger legs. Review of his chart shows that he has gained 21 kg in the last 7 months of body weight. - Echocardiogram from 07/2020 shows preserved LV EF 55-60%. Possibly contributory from AVANI. No proteinuria, serum albumin not severely decreased. - Suspect home Lasix regimen was inadequate, based on significant edema and the above discovered at admission - Diuresed adequately with IV Lasix --> PO Bumex - Continue Bumex 1mg b.i.d. - Low-sodium diet, compression stockings, elevation, as above - Monitor BMP Lower Extremity Pain - Suspect secondary to the above issues, as well as deconditioning, muscle spasm - In setting of previous L-sided tumor resection, possible this may represent spasticity too - Continue PT, topical NSAIDs, Bengay - Baclofen 5mg decreased to BID from TID to decrease sedation - Oxycodone had been held to decrease sedation as well but required overnight -- reorder PRN but decrease dose to 2.5mg - Uric acid level ordered to evaluate for possible gout Encephalopathy - Suspect was previously metabolic in setting on ongoing cellulitis, but also likely contributory from chronic memory impairment - History of meningitis noted - no signs or active concern for this at this time History of Brain Cancer - Status post 2 resections of brain tumor, with residual left-sided hemiparesis after second surgery Epilepsy - Continue home lamotrigine, phenytoin HTN - Stable. Monitor. Chronic Hemiparesis of L side - Secondary to brain cancer s/p resection - PT/OT HLD - Continue Lipitor AVANI - Patient does not tolerate CPAP, but does have known history of AVANI - Continue to encourage CPAP going forward, especially in setting of b/l LE edema and elevated pulmonary pressures Memory impairment - Supportive care FEN/GI:Low Sodium Code Status:DNR/DNI DVT PPX:Coumadin on hold due to retroperitoneal bleed, monitor INR Dispo: Remain Med/Tele, likely ready to DC after vanco course finished -- CM working on placement Admission and Anticipated Discharge Date Admission Date: September 02, 2021 Supervising Physician Co-Signing Physician Notes Pt seen and examined in concert with Dr. Mccloud. In agreement with the documented findings as noted in the resident documentation with any exceptions or additions as noted here. Resting in bed, alert and oriented x 3. Ongoing chronic LE pain worse with WB. On examination, S1/S2 nl RRR no MCG. CTAB. Abd NT/ND BS+ve Transaminitis w/ concern for drug induced liver injury from repeated Abx and medical therapy vs possible infection. Patient has raising WBC, elevated procalcitonin. Patient however is refusing MRCP due to back pain. Patient also refused HIDA scan. CT scan did not show dilated biliary tract. Consulted GI for possible ERCP. Consulted Gen surge, for possible cholecystectomy. Both feel that this does not require any procedures at this time, and signed off. Patient currently is improving today, in regards to LFTs and WBC. Unsure of source, but will continue regimen for at least 7 days and monitor, CT abd/pelvis did show a retroperitoneal hematoma. However, doubt this is source of infection. INR has been reversed.will trend. place on SCD. Pneumonia - negative procal today, stable CXR. Course of Zosyn x 6.5 days, d/c'd. Constipation - significant BM with relastor, continue bowel regimen Cellulitis - appears resolved, however, ID is recommending IV vanco for a few days. Subjective No acute events overnight. Seen at bedside this morning. He was a little more awake and alert today. He denied any current pain or discomfort. Specifically, no chest pain, leg pain, abdominal pain. Additionally, denied palpitations, shortness of breath, fever, chills, nausea, vomiting. Review of Systems Review of Systems: See HPI Physical Exam 2 Physical Exam: General: Alert, oriented x2. NAD Cardiac: Normal rate and regular rhythm; S1 and S2 present with no murmurs, rubs, or gallops. Pulmonary: Good respiratory effort with symmetric expansion of the chest. No use of accessory muscles. Lungs were clear to auscultation bilaterally with no crackles or wheezes. Abdominal: Normoactive bowel sounds. Abdomen was soft, nondistended, and non- tender to palpation. Extremities: BLE with chronic skin changes. Left with some scaliness. No open wounds on either leg. No redness or swelling noted. Results & Data Results & Data ([facility]) Vital Signs (Past 12 Hours) Vital Signs Temp Pulse Pulse Resp BP Pulse Ox 09/23/21 07:24 88 09/23/21 03:13 36.5 C 77 19 119/80 96 09/23/21 00:23 98 H 09/22/21 23:13 36.8 C 95 H 19 121/81 97 Resident Activity Tracking Resident Involvement: Resident Care Provided Care Provided: [facility] Medicine
[2021-09-23 08:22] LABS: Albumin Level 2.3 gm/dl (3.4-5.0); BUN Creatinine Ratio 21.4 (10-20); Calcium 8.9 mg/dl (8.5-10.1); Creatinine Clr Calc Pharmacy 95.1 ml/min; Est GFR (African American) 108.9 ml/min; Est GFR (Non-African American) 93.9 ml/min; Potassium 3.6 mmol/L (3.5-5.1)
[2021-09-23 08:24] LABS: Albumin Globulin Ratio 0.5 (0.9-2); Globulin 4.8 gm/dl (2.5-4.0); Total Protein 7.1 gm/dl (6.4-8.2)
[2021-09-23 08:53] LABS: Bilirubin,Total 1.2 mg/dl (0.2-1)
[2021-09-23] MEDS: PANTOprazole 40 MG in SYRINGE 0 ML IV SCH ×2 (09:26→20:38)
[2021-09-23] MEDS: DOCUSATE SODIUM 100 MG CAP PO SCH ×2 (09:26→20:38)
[2021-09-23] MEDS: lamoTRIgine 100 MG TAB PO SCH ×2 (09:26→20:38)
[2021-09-23] MEDS: BUMETANIDE 1 MG TAB PO SCH ×2 (09:27→20:38)
[2021-09-23] MEDS: lamoTRIgine 25 MG TAB PO SCH ×2 (09:27→20:38)
[2021-09-23] MEDS: BACLOFEN 10 MG TAB PO SCH ×2 (09:27→20:37)
[2021-09-23] MEDS: VANCOMYCIN HCL 1,000 MG in SODIUM CHLORIDE 0.9% 250 ML IV SCH ×2 (09:28→20:37)
[2021-09-23] MEDS: PHENYTOIN SODIUM ER 100 MG CAP PO SCH ×2 (09:28→20:37)
[2021-09-23] MEDS: DICLOFENAC SOD 1% GEL 100 GM TUBE EXT SCH ×4 (09:28→20:38)
[2021-09-23] MEDS: TROLAMINE SALICYLATE 10% CRM 255 APPLN/85 GM TUBE EXT SCH ×3 (09:29→20:39)
--- NOTE | 2021-09-23 09:44 | Gastroenterology Progress Note ---
Date of Service September 23, 2021 Assessment & Plan (1) Elevated LFTs: Plan: 65 year old male admitted w/ PNA and cellulitis, GI asked to evaluate for elevated LFTs, abd us without biliary dilation, gallstones or biliary obstruction on ABD US and CT but mention of 18 cm retroperitoneal hematoma w/ INR 6, now reversed. No acute indication for EUS/ERCP Await liver serologies Liver enzymes downtrending this AM Continue supportive measures GI to sign off, recall as needed. Thank you for allowing us to participate in the care of this patient. Please call with any acute changes, questions or concerns. Please see addendum below with additional recommendation from my supervising physician. Admission and Anticipated Discharge Date Admission Date: September 02, 2021 Supervising Physician Co-Signing Physician Notes Attending attestation I have seen, examined this patient, and agree with the findings and above by our mid-level provider TOBIN Maldonado, with the following additions: - overall dramatic improvement, sitting up at bedside. Would continue with plan - Follow LFT's as they are improving - Check GGT with next draw, but no signs of biliary obstruction Subjective More awake and comfortable today No abd pain No nausea, vomiting but does report a decreased appetite Denies black/bloody stools No fever, chills, CP, SOB. Review of Systems Review of Systems: All systems reviewed & are unremarkable except as noted in HPI & below Physical Exam Constitutional: WD/WN, vitals as above Respiratory: normal respiratory effort, lungs clear to auscultation Cardiovascular: Rate/Rhythm: regular rate and regular rhythm Gastrointestinal (Abdomen): normal bowel sounds, soft, nontender, no hepatosplenomegaly Skin: no rashes, warm and dry Results & Data ([facility]) Vital Signs (Past 12 Hours) Vital Signs Temp Pulse Pulse Resp BP Pulse Ox 09/23/21 08:18 36.8 C 74 20 115/79 98 09/23/21 07:24 88 09/23/21 03:13 36.5 C 77 19 119/80 96 09/23/21 00:23 98 H 09/22/21 23:13 36.8 C 95 H 19 121/81 97 Laboratory Results 09/23/21 09/23/21 09/23/21 Range/Units 07:23 07:23 07:23 WBC 9.41 (4.8-10.8) K/uL RBC 2.81 L (4.7-6.1) M/uL Hgb 9.1 L (14.0-18.0) g/dL Hct 28.3 L (42-52) % MCV 100.7 H (80-100) fL MCH 32.4 (25-34) pg MCHC 32.2 (32-36) g/dL RDW Std Deviation 53.1 H (36.4-46.3) fL RDW Coeff of Paul 14.7 H (11.5-14.5) % Plt Count 438 H (130-400) K/uL MPV 9.1 (7.4-10.4) fL Immature Gran % (Auto) 1.5 % Neut % (Auto) 78.2 % Lymph % (Auto) 8.9 % [place] % (Auto) 8.2 % Eos % (Auto) 3.1 % Baso % (Auto) 0.1 % Neut # (Auto) 7.36 H (1.4-6.5) K/uL Lymph # (Auto) 0.84 L (1.2-3.4) K/uL [place] # (Auto) 0.77 H (0.11-0.59) K/uL Eos # (Auto) 0.29 (0-0.5) K/uL Baso # (Auto) 0.01 (0-0.2) K/uL Immature Gran # (Auto) 0.14 H (0.00-0.02) K/uL PT 10.3 (9.0-12.0) Seconds INR 1.0 (0.9-1.1) Sodium 136 (136-145) mmol/L Potassium 3.6 (3.5-5.1) mmol/L Chloride 101 (98-107) mmol/L Carbon Dioxide 30 (21-32) mmol/L Anion Gap 5.0 (3-11) BUN 17 (7-18) mg/dl Creatinine 0.81 (0.6-1.4) mg/dl Est Cr Clr Drug Dosing 95.1 ml/min Est GFR ( Amer) 108.9 ml/min Est GFR (Non-Af Amer) 93.9 ml/min BUN/Creatinine Ratio 21.4 H (10-20) Glucose 113 H (70-99) mg/dl Calcium 8.9 (8.5-10.1) mg/dl Total Bilirubin 1.2 H (0.2-1) mg/dl AST 188 H (15-37) U/L ALT 216 H (12-78) Alkaline Phosphatase 607 H (45-117) U/L Total Protein 7.1 (6.4-8.2) gm/dl Albumin 2.3 L (3.4-5.0) gm/dl Globulin 4.8 H (2.5-4.0) gm/dl Albumin/Globulin Ratio 0.5 L (0.9-2) Procalcitonin (0-0.5) ng/ml CMV IgM Ab AU/mL EBV Capsid Ag IgM Ab U/mL HSV I IgG Ab index HSV II IgG index Parvovirus IgG Ab Index (<0.9) Parvovirus IgM Ab Index (<0.9) 09/22/21 09/20/21 Range/Units 09:14 10:41 WBC (4.8-10.8) K/uL RBC (4.7-6.1) M/uL Hgb (14.0-18.0) g/dL Hct (42-52) % MCV (80-100) fL MCH (25-34) pg MCHC (32-36) g/dL RDW Std Deviation (36.4-46.3) fL RDW Coeff of Paul (11.5-14.5) % Plt Count (130-400) K/uL MPV (7.4-10.4) fL Immature Gran % (Auto) % Neut % (Auto) % Lymph % (Auto) % [place] % (Auto) % Eos % (Auto) % Baso % (Auto) % Neut # (Auto) (1.4-6.5) K/uL Lymph # (Auto) (1.2-3.4) K/uL [place] # (Auto) (0.11-0.59) K/uL Eos # (Auto) (0-0.5) K/uL Baso # (Auto) (0-0.2) K/uL Immature Gran # (Auto) (0.00-0.02) K/uL PT (9.0-12.0) Seconds INR (0.9-1.1) Sodium (136-145) mmol/L Potassium (3.5-5.1) mmol/L Chloride (98-107) mmol/L Carbon Dioxide (21-32) mmol/L Anion Gap (3-11) BUN (7-18) mg/dl Creatinine (0.6-1.4) mg/dl Est Cr Clr Drug Dosing ml/min Est GFR ( Amer) ml/min Est GFR (Non-Af Amer) ml/min BUN/Creatinine Ratio (10-20) Glucose (70-99) mg/dl Calcium (8.5-10.1) mg/dl Total Bilirubin (0.2-1) mg/dl AST (15-37) U/L ALT (12-78) Alkaline Phosphatase (45-117) U/L Total Protein (6.4-8.2) gm/dl Albumin (3.4-5.0) gm/dl Globulin (2.5-4.0) gm/dl Albumin/Globulin Ratio (0.9-2) Procalcitonin 1.47 H (0-0.5) ng/ml CMV IgM Ab <30.00 AU/mL EBV Capsid Ag IgM Ab 60.40 H U/mL HSV I IgG Ab >58.00 H index HSV II IgG <0.90 index Parvovirus IgG Ab Index 4.5 H (<0.9) Parvovirus IgM Ab Index 0.1 (<0.9)
[2021-09-23] MEDS: CIPROFLOXACIN / D5W 400 MG/200 ML BAG IV SCH ×2 (12:35→23:19)
[2021-09-23] MEDS: POLYETHYLENE (MIRALAX) 17 GM PACK PO SCH ×2 (13:22→20:39)
--- NOTE | 2021-09-23 22:17 | Billing Data ---
Date of Service September 23, 2021 Coding Level of Care Code 15061 Subseq Hosp Care Lvl 2
[2021-09-24] MEDS: oxyCODONE HCL IR 5 MG TAB (IMMEDIATE RELEASE) PO PRN (01:59)
[2021-09-24] MEDS: metroNIDAZOLE 500 MG TAB PO SCH ×3 (05:10→21:31)
[2021-09-24 08:55] LABS: INR 1.1 (0.9-1.1); Prothrombin Time 10.7 Seconds (9.0-12.0)
[2021-09-24] MEDS: VANCOMYCIN HCL 1,000 MG in SODIUM CHLORIDE 0.9% 250 ML IV SCH ×2 (08:56→19:30)
[2021-09-24] MEDS: BUMETANIDE 1 MG TAB PO SCH ×2 (08:56→21:37)
[2021-09-24] MEDS: DICLOFENAC SOD 1% GEL 100 GM TUBE EXT SCH ×4 (08:57→21:42)
[2021-09-24] MEDS: BACLOFEN 10 MG TAB PO SCH ×2 (08:57→21:35)
[2021-09-24] MEDS: lamoTRIgine 25 MG TAB PO SCH ×2 (08:58→21:33)
[2021-09-24] MEDS: DOCUSATE SODIUM 100 MG CAP PO SCH ×2 (08:58→21:34)
[2021-09-24] MEDS: lamoTRIgine 100 MG TAB PO SCH ×2 (08:59→21:33)
[2021-09-24] MEDS: POLYETHYLENE (MIRALAX) 17 GM PACK PO SCH ×2 (08:59→21:39)
[2021-09-24 09:00] LABS: Basophils # (auto) 0.01 K/uL (0-0.2); Basophils % (auto) 0.1 %; Eosinophils # (auto) 0.26 K/uL (0-0.5); Eosinophils % (auto) 2.5 %; Hematocrit (blood only) 29.3 % (42-52); Hemoglobin 9.5 g/dL (14.0-18.0); Immature Granulocytes # (auto) 0.14 K/uL (0.00-0.02); Immature Granulocytes % (auto) 1.3 %; Lymphocytes # (auto) 0.68 K/uL (1.2-3.4); Lymphocytes % (auto) 6.5 %; Mean Corpuscular Hemoglobin 32.4 pg (25-34); Mean Corpuscular Hgb Conc 32.4 g/dL (32-36); Mean Platelet Volume 9.6 fL (7.4-10.4); Monocytes # (auto) 0.78 K/uL (0.11-0.59); Monocytes % (auto) 7.4 %; Neutrophils # (auto) 8.62 K/uL (1.4-6.5); Neutrophils % (auto) 82.2 %; Platelet Count 442 K/uL (130-400); RDW Coefficient of Variation 14.8 % (11.5-14.5); Red Blood Count 2.93 M/uL (4.7-6.1); White Blood Count 10.49 K/uL (4.8-10.8)
[2021-09-24] MEDS: TROLAMINE SALICYLATE 10% CRM 255 APPLN/85 GM TUBE EXT SCH ×3 (09:00→21:42)
[2021-09-24 09:02] LABS: Platelet Estimate Increased (Normal)
[2021-09-24 09:12] LABS: Albumin Level 2.3 gm/dl (3.4-5.0); BUN Creatinine Ratio 20.4 (10-20); Calcium 9.2 mg/dl (8.5-10.1); Creatinine Clr Calc Pharmacy 92.8 ml/min; Est GFR (African American) 107.8 ml/min; Potassium 3.6 mmol/L (3.5-5.1)
[2021-09-24 09:14] LABS: Albumin Globulin Ratio 0.5 (0.9-2); Globulin 4.9 gm/dl (2.5-4.0); Total Protein 7.2 gm/dl (6.4-8.2)
[2021-09-24] MEDS: PANTOprazole 40 MG TAB PO SCH ×2 (09:15→21:32)
[2021-09-24] MEDS: PHENYTOIN SODIUM ER 100 MG CAP PO SCH ×2 (09:17→21:31)
[2021-09-24] MEDS: CIPROFLOXACIN 500 MG TAB PO SCH ×2 (11:42→21:34)
--- NOTE | 2021-09-24 12:15 | Hospitalist Progress Note ---
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 Retroperitoneal hematoma -Large left psoas/retroperitoneal hematoma seen on CT abdomen -INR now 1.1 after Vitamin K 10mg on 09/21 -- INR remains stable now in normal range -Currently stable BP, continue to monitor hemodynamics for signs of hypovolemic shock -- may require transfer if unstable or signs og continued bleed -Hgb remained stable today and is actually improving somewhat - Surgery c/s: - if evidence of continued bleeding may need IR. doubtful as usually these are self limited. -Check CBC & INR in AM Transaminitis - Patient with elevations in Tbili, AST, ALT, AlkPhos, and INR - Gallbladder ultrasound unremarkable - HIDA scan unable to be completed due to patient refusal secondary to leg pain - CT abd -- large left psoas/retroperitoneal hematoma; liver, gallbladder, pancreas unremarkable - Gastroenterology consulted -- initially thought to be DILI, recs as below - No acute indication for EUS/ERCP - Pending trend of labs can consider LB - EBV IGM positive, likely culprit of LFT's - Discontinued APAP, discontinued methylnaltrexone, discontinued Zosyn - Liver serologies resulted positive for EBV IgM -- likely the cause of transaminitis - Surgery consulted: - defer to GI for MRCP vs ERCP - no gallstones. - no indication for cholecystectomy at this time. - Continue ciprofloxacin and metronidazole for potential intraabdominal infection -- transaminitis continues to improve - Trend CMP daily History of DVT / Chronic Anticoagulation / Supratherapeutic INR--INR goal 2-3 - On Coumadin chronically for history of DVT - Supratherapeutic INR: worsened to a peak of 7.2; since then, continues to gradually improve - Possibly related to drug-induced liver injury as above - Hold warfarin for now, consider restarting at 1/2 dose when INR is in goal range - INR reversed 09/21 with 10mg vitamin K due to retroperitoneal hematoma - Recommend starting DVT ppx with Lovenox 40mg daily [address] showing hematoma (CT found 09/20, start med 09/27) - Can consider starting Coumadin again 14 days after diagnosis of hematoma -- defer risk/benefit discussion and decision to PCP - Trend INR daily Leukocytosis - resolved - Patient with leukocytosis gradually rising since 09/15 -- now resolved since 09/23 - Procalcitonin negative - ID consult: - Start vancomycin IV x5 days (through 1/8 AM dose) for cellulitis -- considering could be MRSA - Repeat blood culture ordered 09/19/21 and 09/21/21 both with NGTD - Trend daily CBC, CMP Pneumonia -- resolved - WBC initially trending down steadily since starting on zosyn, though it has since started to rise again - CXR 09/13 showing left basilar and left midlung airspace opacity, may reflect an infectious process - CXR 09/15 with interval progression of the left mid to lower lung zone density, likely combination of small left pleural effusion and airspace opacity - CXR 09/17 with no significant interval change in LLL alveolar opacity characteristic of PNA. Small left pleural effusion. - Seven-day course of Zosyn completed on 09/19/20 - Continue to monitor Anemia, tachycardia --anemia stable - Patient's Hgb has steadily decreased with supratherapeutic INR - He has remained overall stable but has regularly been tachycardic - Retroperitoneal hematoma on CT as above - Monitor CBC and hemodynamic status Bilateral LE Cellulitis (L>R) - Previously on Augmentin in outpatient setting (x2 days) -- unclear if true treatment failure - s/p Dapto/Zosyn -> CFTX for total of 5 days --> doxy (discontinued when WBC continued to rise) --> zosyn (completed 09/19/20) - On IV vanc per ID as above - Continue compression, elevation - WOCN following - appreciate insight, recommendations Constipation - Patient with intermittent constipation and stool burden on KUB - Had been receiving methylnaltrexone every other day, but this was discontinued 09/19/20 due to liver injury noted above - Added docusate, patient already has bisacodyl and Miralax but refusing the latter - Continue to monitor Lower Extremity Edema--stable without significant edema at current time - With severe lower extremity edema much worse his thinks over the last few months, but he has always had larger legs. Review of his chart shows that he has gained 21 kg in the last 7 months of body weight. - Echocardiogram from 07/2020 shows preserved LV EF 55-60%. Possibly contributory from AVANI. No proteinuria, serum albumin not severely decreased. - Suspect home Lasix regimen was inadequate, based on significant edema and the above discovered at admission - Diuresed adequately with IV Lasix --> PO Bumex - Continue Bumex 1mg b.i.d. - Low-sodium diet, compression stockings, elevation, as above - Monitor BMP Lower Extremity Pain - Suspect secondary to the above issues, as well as deconditioning, muscle spasm - In setting of previous L-sided tumor resection, possible this may represent spasticity too - Continue PT, topical NSAIDs, [place] - Baclofen 5mg decreased to BID from TID to decrease sedation - Oxycodone had been held to decrease sedation as well but required overnight -- reorder PRN but decrease dose to 2.5mg - Uric acid level ordered to evaluate for possible gout Encephalopathy - Suspect was previously metabolic in setting on ongoing cellulitis, but also likely contributory from chronic memory impairment - History of meningitis noted - no signs or active concern for this at this time History of Brain Cancer - Status post 2 resections of brain tumor, with residual left-sided hemiparesis after second surgery Epilepsy - Continue home lamotrigine, phenytoin HTN - Stable. Monitor. Chronic Hemiparesis of L side - Secondary to brain cancer s/p resection - PT/OT HLD - Continue Lipitor AVANI - Patient does not tolerate CPAP, but does have known history of AVANI - Continue to encourage CPAP going forward, especially in setting of b/l LE edema and elevated pulmonary pressures Memory impairment - Supportive care FEN/GI:Low Sodium Code Status:DNR/DNI DVT PPX:Coumadin on hold due to retroperitoneal bleed, monitor INR Dispo: Med/Tele -- likely DC to SNF tomorrow after last vancomycin dose Admission and Anticipated Discharge Date Admission Date: September 02, 2021 Supervising Physician Co-Signing Physician Notes Pt seen and examined with Dr. Mccloud. In agreement with the documented findings as noted in the resident documentation with any exceptions or additions as noted Resting in bed, alert and oriented x 3. Ongoing chronic LE pain worse with WB. General: A&Ox3. NAD. Cooperative. HEENT: Atraumatic, normocephalic. Pulm: Symmetrical chest rise. No increased work of breathing. No respiratory distress. Cardiac: Radial pulses intact and symmetrical. Abdominal: Nontender, nondistended, soft. BS present. Sensation to soft touch intact in feet bilaterally. Labs/Images Reviewed Transaminitis likely 2/2 EBV (IgM+ during admit). Repeat lab work in [address]-A/P with retroperitoneal hematoma. Discussed with paramjit. Hold on anticoagulation x1 week, then lovenox 40mg sq daily x1 week, then consider resuming anticoagulation as outpatient if remaining well with no evidence of rebleeding. INR normalized during admit Continue SCDs Cellulitis appears near to completedly resolved on exam. Vancomycin complete tomorrow AM. Continue Flagyl/Cipro as above per ID. Transport to rehab available tomorrow ~1300hrs Subjective No acute events overnight. Patient feels reasonably well. He says that the antibiotics are a little heavy on his stomach and he does feel somewhat uncomfortable shortly after receiving doses. Denies any nausea or vomiting at this time, fever, chills, abdominal pain, shortness of breath, cough, chest pain, palpitations. Review of Systems Review of Systems: See subjective Physical Exam Physical Exam: General: Alert, oriented x2. NAD Cardiac: Normal rate and regular rhythm; S1 and S2 present with no murmurs, rubs, or gallops. Pulmonary: Good respiratory effort with symmetric expansion of the chest. No use of accessory muscles. Lungs were clear to auscultation bilaterally with no crackles or wheezes. Abdominal: Normoactive bowel sounds. Abdomen was soft, nondistended, and non-tender to palpation. Extremities: BLE with chronic skin changes. Left with some scaliness. No open wounds on either leg. No redness or swelling noted. Results & Data Results & Data ([facility]) Vital Signs (Past 12 Hours) Vital Signs Temp Pulse Resp BP Pulse Ox 09/24/21 08:06 36.7 C 117 H 19 144/98 H 92 09/24/21 03:06 36.9 C 110 H 18 136/83 95 Resident Activity Tracking Resident Involvement: Resident Care Provided Care Provided: Adult [facility] Medicine
--- NOTE | 2021-09-24 17:41 | Billing Data ---
Date of Service September 24, 2021 Coding Level of Care Code 64445 Subseq Hosp Care Lvl 2
[2021-09-24] MEDS: ADVANCED PROBIOTIC 1250 MG CAPSULE PO SCH (18:01)
[2021-09-25 06:34] LABS: Basophils # (auto) 0.01 K/uL (0-0.2); Basophils % (auto) 0.1 %; Eosinophils % (auto) 3.2 %; Hematocrit (blood only) 29.1 % (42-52); Hemoglobin 9.6 g/dL (14.0-18.0); Immature Granulocytes # (auto) 0.13 K/uL (0.00-0.02); Immature Granulocytes % (auto) 1.4 %; Lymphocytes # (auto) 0.92 K/uL (1.2-3.4); Lymphocytes % (auto) 9.7 %; Mean Corpuscular Hemoglobin 33.4 pg (25-34); Mean Corpuscular Volume 101.4 fL (80-100); Mean Platelet Volume 8.9 fL (7.4-10.4); Monocytes # (auto) 0.72 K/uL (0.11-0.59); Monocytes % (auto) 7.6 %; Neutrophils # (auto) 7.41 K/uL (1.4-6.5); Platelet Count 402 K/uL (130-400); RDW Standard Deviation 53.8 fL (36.4-46.3); Red Blood Count 2.87 M/uL (4.7-6.1); White Blood Count 9.49 K/uL (4.8-10.8)
[2021-09-25] MEDS: oxyCODONE HCL IR 5 MG TAB (IMMEDIATE RELEASE) PO PRN (06:39)
[2021-09-25] MEDS: metroNIDAZOLE 500 MG TAB PO SCH (06:39)
[2021-09-25 07:00] LABS: Calcium 9.2 mg/dl (8.5-10.1); Potassium 3.6 mmol/L (3.5-5.1)
[2021-09-25 07:02] LABS: BUN Creatinine Ratio 19.1 (10-20); Creatinine Clr Calc Pharmacy 90.7 ml/min; Est GFR (African American) 106.7 ml/min; Est GFR (Non-African American) 92.1 ml/min
[2021-09-25 07:04] LABS: Albumin Globulin Ratio 0.5 (0.9-2); Albumin Level 2.4 gm/dl (3.4-5.0); Bilirubin,Total 0.9 mg/dl (0.2-1); Globulin 4.6 gm/dl (2.5-4.0)
[2021-09-25] MEDS: CIPROFLOXACIN 500 MG TAB PO SCH (07:24)
[2021-09-25] MEDS: DOCUSATE SODIUM 100 MG CAP PO SCH (07:25)
[2021-09-25] MEDS: PHENYTOIN SODIUM ER 100 MG CAP PO SCH (07:25)
[2021-09-25] MEDS: lamoTRIgine 100 MG TAB PO SCH (07:25)
[2021-09-25] MEDS: BUMETANIDE 1 MG TAB PO SCH (07:25)
[2021-09-25] MEDS: ADVANCED PROBIOTIC 1250 MG CAPSULE PO SCH (07:25)
[2021-09-25] MEDS: PANTOprazole 40 MG TAB PO SCH (07:25)
[2021-09-25] MEDS: lamoTRIgine 25 MG TAB PO SCH (07:25)
[2021-09-25] MEDS: TROLAMINE SALICYLATE 10% CRM 255 APPLN/85 GM TUBE EXT SCH ×2 (07:26→12:03)
[2021-09-25] MEDS: DICLOFENAC SOD 1% GEL 100 GM TUBE EXT SCH ×2 (07:26→12:02)
[2021-09-25] MEDS: POLYETHYLENE (MIRALAX) 17 GM PACK PO SCH (07:30)
[2021-09-25] MEDS: VANCOMYCIN HCL 1,000 MG in SODIUM CHLORIDE 0.9% 250 ML IV SCH (07:30)
--- NOTE | 2021-09-25 07:51 | Discharge Summary ---
Date of Service September 25, 2021 Admission HPI Per Admitting Provider This patient is a 65-year-old male with a history of glioblastoma multiforme status post resection, residual left-sided hemiparesis, seizure disorder, multiple episodes of meningitis, DVT on Coumadin, CKD stage II, dyslipidemia, HTN, mild cognitive impairment, and recent Covid-19 infection 3 weeks ago, who presents to the ER with worsening cellulitis of the legs left greater than right after he developed leg swelling over the last several weeks. His also notes that he has had some heaped up wound-like lesions develop on the left leg in the last week. He reports tremendous pain especially in the left leg and is having muscle spasms. He was seen by his PCP 2 days ago and started on Augmentin 875 twice daily as well as increased on his Lasix to 40 mg daily for the swelling. He was back at the PCP office again today for follow-up on his leg cellulitis and swelling and was noted to be more confused and lethargic. No fevers. He is short of breath and asked for oxygen to be placed on him despite a pulse ox of 92% in the ER His WBC count was within normal limits, his INR was therapeutic at 2.5. Lactic acid was normal. Troponin negative, proBNP in normal limits, procalcitonin negative, UA negative. CT of the head was negative. He was given IV daptomycin, IV Zosyn, IV Lasix, IV Tylenol, and morphine. He will be admitted for acute metabolic encephalopathy and worsening left lower extremity cellulitis and lower extremity edema Principal Diagnosis LE Cellulitis Retroperitoneal hematoma Pneumonia EBV Discharge Exam General: Alert, oriented x2. NAD Cardiac: Normal rate and regular rhythm; S1 and S2 present with no murmurs, rubs, or gallops. Pulmonary: Good respiratory effort with symmetric expansion of the chest. No use of accessory muscles. Lungs were clear to auscultation bilaterally with no crackles or wheezes. Abdominal: Normoactive bowel sounds. Abdomen was soft, nondistended, and non- tender to palpation. Extremities: BLE with chronic skin changes. Left with some scaliness. No open wounds on either leg. No redness or swelling noted. Discharge Data Allergies Allergy/AdvReac Type Severity Reaction Status Date / Time No Known Allergies Allergy ` Verified 09/02/21 14:28 Consultations 09/02/21 17:49 ED Decision to Admit Stat 09/18/21 10:51 Consult Gastroenterology Routine 09/19/21 09:43 Consult Infectious Diseases Routine 09/21/21 11:37 Consult General Surgery Routine Ordered Studies 09/02/21 13:34 CT head/brain wo con Stat 09/04/21 21:58 US venous doppler LE BI Routine 09/17/21 13:40 US gallbladder Routine 09/20/21 10:16 CT abdomen w IV con Routine 09/21/21 12:08 CT pelvis wo con Routine Hospital Course (1) Elevated liver enzymes: (2) Psoas hematoma, left, secondary to anticoagulant therapy: (3) Elevated LFTs: (4) Hx of brain cancer: (5) Generalized epilepsy: (6) DVT of leg (deep venous thrombosis): (7) Benign hypertension: (8) Chronic anticoagulation: (9) Hemiparesis of left nondominant side: (10) Bilateral lower extremity edema: (11) Dyslipidemia: (12) CKD (chronic kidney disease) stage 2, GFR 60-89 ml/min: (13) Anemia: (14) Cellulitis: Balbir is a 65-year-old male with history of AVANI (unable to tolerate CPAP), pHTN, and prior DVTs who presented with bilateral lower extremity cellulitis that did not respond to outpatient therapy, who then developed pneumonia and transaminitis. Retroperitoneal hematoma -Large left psoas/retroperitoneal hematoma seen on CT abdomen -INR now 1.1 after Vitamin K 10mg on 09/21 -- INR remains stable now in normal range -Currently stable BP, continue to monitor hemodynamics for signs of hypovolemic shock -- may require transfer if unstable or signs of continued bleed -Hgb remained stable today and is actually improving somewhat - Surgery c/s: - if evidence of continued bleeding may need IR. doubtful as usually these are self limited. -Recommend monitoring CBC -- if he becomes hemodynamically unstable may require a facility with IR capabilities - See anticoagulation plan below per discussion with hematology Transaminitis - Patient with elevations in Tbili, AST, ALT, AlkPhos, and INR - Gallbladder ultrasound unremarkable - HIDA scan unable to be completed due to patient refusal secondary to leg pain - CT abd -- large left psoas/retroperitoneal hematoma; liver, gallbladder, pancreas unremarkable - Gastroenterology consulted -- initially thought to be DILI, recs as below - No acute indication for EUS/ERCP - Pending trend of labs can consider LB - EBV IGM positive, likely culprit of LFT's - Discontinued APAP, discontinued methylnaltrexone, discontinued Zosyn - Liver serologies resulted positive for EBV IgM -- likely cause of transaminitis - Surgery consulted: - defer to GI for MRCP vs ERCP - no gallstones. - no indication for cholecystectomy at this time. - Continue ciprofloxacin and metronidazole for potential intraabdominal infection -- 09/25 will be last day of treatment (will require one more dose of cipro and two of Flagyl at [facility]) - Trend CMP daily History of DVT / Chronic Anticoagulation / Supratherapeutic INR--INR goal 2-3 - On Coumadin chronically for history of DVT - Supratherapeutic INR: worsened to a peak of 7.2; since then, continues to gradually improve - Possibly related to drug-induced liver injury as above - Hold warfarin for now, consider restarting at 1/2 dose when INR is in goal range - INR reversed 09/21 with 10mg vitamin K due to retroperitoneal hematoma - Discussed plan for anticoagulation with Hematology in light of retroperitoneal hematoma above -- see recs: -Recommend starting DVT ppx with Lovenox 40mg daily [address] showing hematoma (Found on CT on 09/20; start med 09/27) - Can consider starting Coumadin again 14 days after diagnosis of hematoma (10/04) -- defer risk/benefit discussion to [facility] provider or PCP Leukocytosis -resolved - Patient with leukocytosis gradually rising since 09/15 -- now resolved since 09/23 - Procalcitonin negative - ID consult: - Start vancomycin IV x5 days (through 1/8 AM dose) for cellulitis -- considering could be MRSA - Repeat blood culture ordered 09/19/21 negative and 09/21/21 with NGTD Pneumonia --resolved - WBC initially trending down steadily since starting on zosyn, though it has since started to rise again - CXR 09/13 showing left basilar and left midlung airspace opacity, may reflect an infectious process - CXR 09/15 with interval progression of the left mid to lower lung zone density, likely combination of small left pleural effusion and airspace opacity - CXR 09/17 with no significant interval change in LLL alveolar opacity characteristic of PNA. Small left pleural effusion. - Seven-day course of Zosyn completed on 09/19/20 Anemia, tachycardia --anemia stable - Patient's Hgb has steadily decreased with supratherapeutic INR - He has remained overall stable but has regularly been tachycardic - Retroperitoneal hematoma on CT as above - Monitor CBC and hemodynamic status Bilateral LE Cellulitis (L>R) - resolved/fully treated per ID recs - Previously on Augmentin in outpatient setting (x2 days) -- unclear if true treatment failure - s/p Dapto/Zosyn -> CFTX for total of 5 days --> doxy (discontinued when WBC continued to rise) --> zosyn (completed 09/19/20) - On IV vanc per ID as above - Continue compression, elevation - WOCN following - appreciate insight, recommendations Constipation - Patient with intermittent constipation and stool burden on KUB - Had been receiving methylnaltrexone every other day, but this was discontinued 09/19/20 due to liver injury noted above - Added docusate, patient already has bisacodyl and Miralax but refusing the latter - Continue to monitor Lower Extremity Edema--stable without significant edema at current time - With severe lower extremity edema much worse his thinks over the last few months, but he has always had larger legs. Review of his chart shows that he has gained 21 kg in the last 7 months of body weight. - Echocardiogram from 07/2020 shows preserved LV EF 55-60%. Possibly contributory from AVANI. No proteinuria, serum albumin not severely decreased. - Suspect home Lasix regimen was inadequate, based on significant edema and the above discovered at admission - Diuresed adequately with IV Lasix --> PO Bumex - Continue Bumex 1mg b.i.d. - Low-sodium diet, compression stockings, elevation, as above - Monitor BMP Lower Extremity Pain - chronic, likely multifactorial with established lower back issues and lower extremity edema - In setting of previous L-sided tumor resection, possible this may represent spasticity too - Continue PT, topical NSAIDs, Bengay - Baclofen 5mg decreased to BID from TID to decrease sedation - Continue oxycodone prn - Uric acid level ordered to evaluate for possible gout Encephalopathy - Suspect was previously metabolic in setting on ongoing cellulitis, but also likely contributory from chronic memory impairment - History of meningitis noted - no signs or active concern for this at this time History of Brain Cancer - Status post 2 resections of brain tumor, with residual left-sided hemiparesis after second surgery Epilepsy - Continue home lamotrigine, phenytoin HTN - Stable. Monitor. Chronic Hemiparesis of L side - Secondary to brain cancer s/p resection - PT/OT HLD - Continue Lipitor AVANI - Patient does not tolerate CPAP, but does have known history of AVANI - Continue to encourage CPAP going forward, especially in setting of b/l LE edema and elevated pulmonary pressures Memory impairment - Supportive care Dispo: Transfer to SNF for ongoing PT/OT Total Time Total Time Spent Total Time Spent (In Minutes): See attending attestation Discharge Plan Discharge Items Patient Disposition: Transfer [facility] Reason For Visit: LEG CELLULITUS, PERIPHERAL EDEMA *IV ONLY* Discharge Diagnosis: LE Cellulitis Retroperitoneal hematoma Pneumonia EBV Activity: Per Instructions section Non-emergency contact: Primary Care Provider Call non-emergency contact if: you have any medication questions Follow-up/Referrals: Anjana Villar CRNP [Primary Care Provider] - Diet: Heart Healthy Addtl Attending Provider Instructions: Balbir is a 65-year-old male with history of AVANI (unable to tolerate CPAP), pHTN, and prior DVTs who presented with bilateral lower extremity cellulitis that did not respond to outpatient therapy, who then developed pneumonia and transaminitis. Retroperitoneal hematoma -Large left psoas/retroperitoneal hematoma seen on CT abdomen -INR now 1.1 after Vitamin K 10mg on 09/21 -- INR remains stable now in normal range -Currently stable BP, continue to monitor hemodynamics for signs of hypovolemic shock -- may require transfer if unstable or signs of continued bleed -Hgb remained stable today and is actually improving somewhat - Surgery c/s: - if evidence of continued bleeding may need IR. doubtful as usually these are self limited. -Recommend monitoring CBC -- if he becomes hemodynamically unstable may require a facility with IR capabilities - See anticoagulation plan below per discussion with hematology Transaminitis - Patient with elevations in Tbili, AST, ALT, AlkPhos, and INR - Gallbladder ultrasound unremarkable - HIDA scan unable to be completed due to patient refusal secondary to leg pain - CT abd -- large left psoas/retroperitoneal hematoma; liver, gallbladder, pancreas unremarkable - Gastroenterology consulted -- initially thought to be DILI, recs as below - No acute indication for EUS/ERCP - Pending trend of labs can consider LB - EBV IGM positive, likely culprit of LFT's - Discontinued APAP, discontinued methylnaltrexone, discontinued Zosyn - Liver serologies resulted positive for EBV IgM -- likely cause of transaminitis - Surgery consulted: - defer to GI for MRCP vs ERCP - no gallstones. - no indication for cholecystectomy at this time. - Continue ciprofloxacin and metronidazole for potential intraabdominal infection -- 09/25 will be last day of treatment (will require one more dose of cipro and two of Flagyl at [facility]) - Trend CMP daily History of DVT / Chronic Anticoagulation / Supratherapeutic INR--INR goal 2-3 - On Coumadin chronically for history of DVT - Supratherapeutic INR: worsened to a peak of 7.2; since then, continues to gradually improve - Possibly related to drug-induced liver injury as above - Hold warfarin for now, consider restarting at 1/2 dose when INR is in goal range - INR reversed 09/21 with 10mg vitamin K due to retroperitoneal hematoma - Discussed plan for anticoagulation with Hematology in light of retroperitoneal hematoma above -- see recs: -Recommend starting DVT ppx with Lovenox 40mg daily [address] showing hematoma (Found on CT on 09/20; start med 09/27) - Can consider starting Coumadin again 14 days after diagnosis of hematoma (10/04) -- defer risk/benefit discussion to SNF provider or PCP Leukocytosis -resolved - Patient with leukocytosis gradually rising since 09/15 -- now resolved since 09/23 - Procalcitonin negative - ID consult: - Start vancomycin IV x5 days (through 1/8 AM dose) for cellulitis -- considering could be MRSA - Repeat blood culture ordered 09/19/21 negative and 09/21/21 with NGTD Pneumonia --resolved - WBC initially trending down steadily since starting on zosyn, though it has since started to rise again - CXR 09/13 showing left basilar and left midlung airspace opacity, may reflect an infectious process - CXR 09/15 with interval progression of the left mid to lower lung zone density, likely combination of small left pleural effusion and airspace opacity - CXR 09/17 with no significant interval change in LLL alveolar opacity characteristic of PNA. Small left pleural effusion. - Seven-day course of Zosyn completed on 09/19/20 Anemia, tachycardia --anemia stable - Patient's Hgb has steadily decreased with supratherapeutic INR - He has remained overall stable but has regularly been tachycardic - Retroperitoneal hematoma on CT as above - Monitor CBC and hemodynamic status Bilateral LE Cellulitis (L>R) - resolved/fully treated per ID recs - Previously on Augmentin in outpatient setting (x2 days) -- unclear if true treatment failure - s/p Dapto/Zosyn -> CFTX for total of 5 days --> doxy (discontinued when WBC continued to rise) --> zosyn (completed 09/19/20) - On IV vanc per ID as above - Continue compression, elevation - WOCN following - appreciate insight, recommendations Constipation - Patient with intermittent constipation and stool burden on KUB - Had been receiving methylnaltrexone every other day, but this was discontinued 09/19/20 due to liver injury noted above - Added docusate, patient already has bisacodyl and Miralax but refusing the latter - Continue to monitor Lower Extremity Edema--stable without significant edema at current time - With severe lower extremity edema much worse his thinks over the last few months, but he has always had larger legs. Review of his chart shows that he has gained 21 kg in the last 7 months of body weight. - Echocardiogram from 07/2020 shows preserved LV EF 55-60%. Possibly contributory from AVANI. No proteinuria, serum albumin not severely decreased. - Suspect home Lasix regimen was inadequate, based on significant edema and the above discovered at admission - Diuresed adequately with IV Lasix --> PO Bumex - Continue Bumex 1mg b.i.d. - Low-sodium diet, compression stockings, elevation, as above - Monitor BMP Lower Extremity Pain - chronic, likely multifactorial with established lower back issues and lower extremity edema - In setting of previous L-sided tumor resection, possible this may represent spasticity too - Continue PT, topical NSAIDs, Bengay - Baclofen 5mg decreased to BID from TID to decrease sedation - Continue oxycodone prn - Uric acid level ordered to evaluate for possible gout Encephalopathy - Suspect was previously metabolic in setting on ongoing cellulitis, but also likely contributory from chronic memory impairment - History of meningitis noted - no signs or active concern for this at this time History of Brain Cancer - Status post 2 resections of brain tumor, with residual left-sided hemiparesis after second surgery Epilepsy - Continue home lamotrigine, phenytoin HTN - Stable. Monitor. Chronic Hemiparesis of L side - Secondary to brain cancer s/p resection - PT/OT HLD - Continue Lipitor AVANI - Patient does not tolerate CPAP, but does have known history of AVANI - Continue to encourage CPAP going forward, especially in setting of b/l LE edema and elevated pulmonary pressures Memory impairment - Supportive care Dispo: Transfer to SNF for ongoing PT/OT Pending Studies at Discharge: No Stand-Alone Forms: [facility] Skilled Items Patient informed of condition?: Yes DNR: Yes Discharge Level of Care: Skilled Communicable Disease: No Discharge Prognosis: Improving Lines: None Urinary Catheter: No Medications and DC Order Prescriptions: New ciprofloxacin HCl 500 mg Tablet 500 mg PO BID Qty: 1 RF: 0 metronidazole 500 mg Tablet 500 mg PO Q8 Qty: 2 RF: 0 baclofen 10 mg Tablet 5 mg PO BID 14 Days Qty: 14 RF: 0 bumetanide 1 mg Tablet 1 mg PO BID 30 Days Qty: 60 RF: 0 Continued lorazepam 1 mg tablet 1 mg PO DAILY PRN (Reason: Seizures) 30 Days Qty: 30 RF: 3 lamotrigine 200 mg tablet 200 mg PO BID Qty: 60 RF: 5 atorvastatin 40 mg tablet 40 mg PO DAILY Qty: 30 RF: 5 phenytoin sodium extended [Dilantin Extended] 100 mg capsule 200 mg PO BID 30 Days Qty: 120 RF: 5 acetaminophen [Tylenol Extra Strength] 500 mg Tablet 1,000 mg PO Q6H PRN (Reason: Pain) RF: 0 oxycodone 5 mg tablet 5 mg PO Q8H PRN (Reason: pain) Qty: 31 RF: 0 lamotrigine 25 mg tablet 50 mg PO BID RF: 0 Discontinued warfarin 5 mg tablet 5 mg PO .COMPLEX Qty: 100 RF: 6 furosemide 20 mg tablet 40 mg PO DAILY Qty: 60 RF: 2 amoxicillin-pot clavulanate [Augmentin] 875-125 mg tablet 1 tab PO BID Qty: 20 RF: 0 Discharge Orders: Discharge Order (Routine); Ordered 09/25/21 Ordered By: Ricki Mccloud Admission Data Admit Date/Time: 09/02/21 20:16 Attending Provider: Baresel,Jose Admit Provider: Marcia Gomez Primary Care Provider: Anjana Villar Other Providers: Marcia Gomez ; [facility] ; [facility] ; [facility] ; Thalia Mccann ; Delmer Prince ; Yoselyn Urena ; Arjun Russ I. ; Tr Cohen II ; Cha Coelho ; Hussain Wright ; Jarad Mercado ; Seth Landaverde Other Interventions: Discharge Summary Assessment (RN) Last Done: 09/25/21 12:18 Supervising Physician Co-Signing Physician Notes Pt seen and examined with Dr. Mccloud. In agreement with the documented findings as noted in the resident documentation with any exceptions or additions as noted General: A&Ox3. NAD. Cooperative. HEENT: Atraumatic, normocephalic. Pulm: Symmetrical chest rise. No increased work of breathing. No respiratory distress. Cardiac: Radial pulses intact and symmetrical. Abdominal: Nontender, nondistended, soft. BS present. Extremity: Moves both extremities. Sensation to soft touch intact in feet bilaterally. Chronic venous stasis changes bilaterally. No erythema/warmth. Labs/Images Reviewed History of DVT, recurrent, retroperitoneal hematoma during admission: Patient with a history of recurrent DVT, however had a retroperitoneal hematoma during admission. Surgery consulted, patient did not have continued bleeding and did not require IR at time of admission but if he were to rebleed or become unstable require a facility with IR capabilities. Case was discussed with hematology. Recommended that anticoagulation be held completely for 1 week, and then prophylactic Lovenox 40 mg be pursued for 1 week (to start 09/27/2021), and resuming Coumadin with slow titration 1 week following that if clinically well with no signs of bleeding. Clinical reassessment for bleeding, and CBCs at least weekly to follow hemoglobin. Transaminitis: Patient with transaminitis experienced during admission, unremarkable gallbladder work-up, positive EBV IgM suggesting mono/reactivated EBV as cause of transaminitis. Continue to follow, trend CMP weekly. Cellulitis: As above, clinically improved at time of discharge Chronic left lower extremity pain: Pain improved with OMT and supportive care during admission, see above Time spent day of discharge including direct patient care, review of labs and images, coordination of care, documentation, and review of case with team and resident provider 35 minutes. Resident Activity Tracking Resident Involvement: Resident Care Provided Care Provided: Adult Hospital Medicine
[2021-09-25] MEDS: BACLOFEN 10 MG TAB PO SCH (09:49)
[2021-09-25 11:23] VITALS: PULSE 94; O2SAT 95
[2021-09-25 11:32] VITALS: TEMP 98.2
[2021-09-25 12:20] VITALS: BP 134/86
--- NOTE | 2021-09-25 12:43 | Billing Data ---
Date of Service September 25, 2021 Coding Level of Care Code D/C DAY MANAGEMENT >30 MINS
== END 2021-09-25 13:08 | DRG 602 ==
LOC: ED 12:38 → EDINP 12:38 → SUATTDRO 20:16 → OBSVTOIN 20:16 → 2N 22:11

== ENCOUNTER 2021-11-02 16:54 | Inpatient (IN) ==
--- NOTE | 2021-11-02 17:27 | Emergency Department Note ---
Impression & Plan DVT (deep venous thrombosis) [place] ED Provider Note HPI: The patient is 65-year-old male who presents the emergency department with a chief complaint of left leg pain. Patient has history of glioblastoma multiforme status post resection, residual motor function deficits of the left lower extremity, presents the emergency department with worsening pain in his left leg that he tells me has been going on for 2 months however was worse than usual today. His contacted EMS for him to be transported from home. He denies any chest pain or shortness of breath. Patient states he was concerned he may have a cellulitis in the left lower extremity and therefore presented to the emergency department today because of his worsening pain. On arrival he is hemodynamically stable, he is saturating well on room air, he denies any chest pain or shortness of breath. ROS: -MSK: Left lower extremity pain *10 point review systems was conducted and is otherwise negative unless stated above *Outpatient medications and allergy history reviewed PE: General: Alert, NAD HEENT: Normocephalic, atraumatic Eyes: Extraocular eye movement is intact, no scleral erythema Pulmonary: Clear to auscultation bilaterally, no wheezing Cardio: Regular rate and rhythm GI: Abdomen is soft, nontender : No suprapubic tenderness MSK: No evidence of trauma or malformation of the extremities, no edema, patient does not have motor function of the left lower extremity, there is no asymmetrical swelling or erythema Skin: No evidence of rash Neuro: Alert, no new focal deficits, no motor strength of the left lower extremity 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 He states that this is been ongoing for the past several months. Upon chart review he has been previously on Coumadin, his course of Coumadin was complicated by retroperitoneal bleed this past August that was noted on CT imaging, Coumadin was held at that time. Per chart review he was to resume his Coumadin in September but it was left up to risk/benefit discussion with outpatient providers and patient apparently did not restart his Coumadin. His at the bedside tells me that he was advised by his PCP to start taking his Coumadin just yesterday. Patient is hemodynamically stable on arrival, IV was established, lab work ordered, x-ray imaging of the left lower extremity tibia/fibula shows what appears to be a possible bone infarct versus enchondroma. X-ray of edging of the hips does not show any evidence of fracture. Ultrasound imaging of the left lower extremity does show evidence of a DVT. Chest x-ray does not show any acute disease in the chest, EKG does not show any acute ischemic changes, troponin is negative x1. Discussed all the above findings with the patient and his at the bedside, at this time does state strongly her preference for admission which I think is reasonable given his acute DVT and complex medical history, he is currently not on Coumadin, his INR is 1.0, therefore heparin drip was ordered, upon review of previous notes it seems his providers had recommended that he restart Coumadin this past September. Will defer further anticoagulation strategy to the hospitalist service at this time. Heparin drip was ordered, patient is hemodynamically stable, he was admitted in stable condition to the [facility] hospita list service for further care. Diagnosis: 1. Left leg pain 2. Acute DVT 3. Subtherapeutic INR Disposition: Admission Hussain Molina DO Emergency Medicine Past Med/Surg History Medical History Benign hypertension Cellulitis Chronic anticoagulation CKD (chronic kidney disease) stage 2, GFR 60-89 ml/min Closed left clavicular fracture Complex partial seizure Confusion COVID-19 09/07 DVT of leg (deep venous thrombosis) Fall Hx of brain cancer Glioblastoma Multiforme - 2003 - s/p resection [facility] Memory impairment Meningitis multiple episodes AAVNI (obstructive sleep apnea) Small bowel obstruction Surgical History H/O cataract removal with insertion of prosthetic lens H/O shoulder surgery Hx of brain surgery 2003 initial resection for GBM at [facility]; 2006 - 2nd surgery, this time at [facility], ultimately was discovered to have blood clot & scar tissue rather than recurrent cancer Family History Father , in his mid 60s of cardiac issues. 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 Beliefs That Will Affect Care: None marital status: Current Living Situation: Spouse Current Living Situation Comment: lives in [facility]; 2 children 1st marriage; 2 children 2nd marriage current occupational status: retired 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, 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 How many Children do You have: 4 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 Feels Safe at Home: Yes Childhood Exposure to Second-Hand Smoke: No caffeine: No Dental Care, Regularly: Yes Physical Activity Frequency: Does not Exercise Seatbelt Use: never Sunscreen Use: No Assistive Devices: Oxygen - Continuous Allergies Allergies Allergy/AdvReac Type Severity Reaction Status Date / Time gabapentin AdvReac Intermediate hallucinati Verified 11/02/21 18:12 ons Home Meds Home Medications Medication Instructions Recorded Confirmed lamotrigine 25 mg tablet 50 mg PO BID 08/12/21 11/02/21 acetaminophen 160 mg/5 mL oral 960 mg PO Q4H PRN ml 10/25/21 11/02/21 suspension (Children's Tylenol) acetaminophen 325 mg tablet 650 mg PO Q4H PRN tab 10/25/21 11/02/21 (Tylenol) escitalopram oxalate 10 mg tablet 10 mg PO DAILY 10/25/21 11/02/21 (Lexapro) ondansetron HCl 4 mg tablet 4 mg PO Q8H PRN 10/25/21 11/02/21 atorvastatin 40 mg tablet 40 mg PO HS 11/02/21 11/02/21 gabapentin 250 mg/5 mL (5 mL) oral 50 mg PO QAM 11/02/21 11/02/21 solution phenytoin sodium extended 100 mg 100 mg PO TID 11/02/21 11/02/21 capsule trazodone 50 mg tablet 0 mg PO HS 11/02/21 11/02/21 warfarin 5 mg tablet 5 mg PO QPM 11/02/21 11/02/21 Previous Rx's Medication Instructions Recorded lamotrigine 200 mg tablet 200 mg PO BID #60 tab 07/09/21 bumetanide 1 mg tablet 1 mg PO BID #60 tab 10/25/21 lorazepam 1 mg tablet 1 mg PO .COMPLEX PRN 30 Days #60 10/25/21 tab Results & Data (ED) Vital Signs Vital Signs - 24 hr 11/02/21 17:02 11/02/21 18:31 11/02/21 20:41 Temperature 37.0 C Temperature Source Oral Pulse Rate 90 Pulse Rate [Right Finger] 91 H 91 H Pulse Rhythm [Right Finger] Regular Regular Pulse Strength [Right Finger] Normal Normal Respiratory Rate 20 18 16 Respiratory Effort / Characteristics Non-Labored Non-Labored Spontaneous Respiratory Depth Normal Normal Respiratory Pattern Regular Regular Blood Pressure 152/106 H Blood Pressure [Right Arm] 152/106 H 172/107 H Blood Pressure Mean 121 Blood Pressure Mean [Right Arm] 121 128 Blood Pressure Position Lying Blood Pressure Position [Right Arm] Lying Lying Pulse Oximetry 92 94 94 Oxygen Delivery Method Room Air Room Air Room Air Sepsis New/Unexplained Change in Mental Status N/A Sepsis Action Taken by Nursing No Action Required 11/02/21 22:00 Temperature Temperature Source Pulse Rate Pulse Rate [Right Finger] 93 H Pulse Rhythm [Right Finger] Regular Pulse Strength [Right Finger] Normal Respiratory Rate 18 Respiratory Effort / Characteristics Non-Labored Respiratory Depth Normal Respiratory Pattern Regular Blood Pressure Blood Pressure [Right Arm] 161/100 H Blood Pressure Mean Blood Pressure Mean [Right Arm] 120 Blood Pressure Position Blood Pressure Position [Right Arm] Lying Pulse Oximetry 92 Oxygen Delivery Method Room Air Sepsis New/Unexplained Change in Mental Status Sepsis Action Taken by Nursing Laboratory Data Result diagrams: 11/02/21 18:43 11/02/21 18:43 Lab Results 11/02/21 11/02/21 11/02/21 Range/Units 18:43 18:43 18:43 WBC 5.36 (4.8-10.8) K/uL RBC 4.20 L (4.7-6.1) M/uL Hgb 14.1 (14.0-18.0) g/dL Hct 41.3 L (42-52) % MCV 98.3 (80-100) fL MCH 33.6 (25-34) pg MCHC 34.1 (32-36) g/dL RDW Std Deviation 47.4 H (36.4-46.3) fL RDW Coeff of Paul 13.2 (11.5-14.5) % Plt Count 231 (130-400) K/uL MPV 8.8 (7.4-10.4) fL Immature Gran % (Auto) 0.0 % Neut % (Auto) 61.4 % Lymph % (Auto) 23.5 % [place] % (Auto) 10.8 % Eos % (Auto) 4.1 % Baso % (Auto) 0.2 % Neut # (Auto) 3.29 (1.4-6.5) K/uL Lymph # (Auto) 1.26 (1.2-3.4) K/uL [place] # (Auto) 0.58 (0.11-0.59) K/uL Eos # (Auto) 0.22 (0-0.5) K/uL Baso # (Auto) 0.01 (0-0.2) K/uL Immature Gran # (Auto) 0.00 (0.00-0.02) K/uL PT 10.3 (9.0-12.0) Seconds INR 1.0 (0.9-1.1) APTT 26.2 (21.0-31.0) Seconds PTT Ratio 1.0 Sodium 134 L (136-145) mmol/L Potassium 3.5 (3.5-5.1) mmol/L Chloride 98 (98-107) mmol/L Carbon Dioxide 28 (21-32) mmol/L Anion Gap 8 (3-11) BUN 12 (6-23) mg/dl Creatinine 0.70 (0.6-1.4) mg/dl Est Cr Clr Drug Dosing 125.6 ml/min Est GFR ( Amer) 115.6 ml/min Est GFR (Non-Af Amer) 99.7 ml/min BUN/Creatinine Ratio 17.1 (10-20) Glucose 102 H (70-99(Fasting)) mg/dl Lactate (0.4-2.0) mmol/L Calcium 9.0 (8.5-10.1) mg/dl Magnesium 1.8 (1.7-2.4) mg/dl Total Bilirubin 0.5 (0.2-1.0) mg/dl AST 12 L (13-39) U/L ALT 10 (7-52) U/L Alkaline Phosphatase 152 H (34-104) U/L Total Protein 6.9 (6.0-8.3) gm/dl Albumin 3.6 (3.4-5.0) gm/dl Globulin 3.3 (2.5-4.0) gm/dl Albumin/Globulin Ratio 1.1 (0.9-2) Procalcitonin (0-0.5) ng/ml Urine Color Urine Appearance (Clear) Urine pH (4.5-7.5) Ur Specific [place] (1.000-1.030) Urine Protein (Negative) Urine Glucose (UA) (Negative) Urine Ketones (Negative) Urine Blood (Negative) Urine Nitrite (Negative) Urine Bilirubin (Negative) Urine Urobilinogen (Negative) Ur Leukocyte Esterase (Negative) SARS-CoV-2, RNA, NAAT (NEGATIVE) 11/02/21 11/02/21 11/02/21 Range/Units 18:43 18:43 20:44 WBC (4.8-10.8) K/uL RBC (4.7-6.1) M/uL Hgb (14.0-18.0) g/dL Hct (42-52) % MCV (80-100) fL MCH (25-34) pg MCHC (32-36) g/dL RDW Std Deviation (36.4-46.3) fL RDW Coeff of Paul (11.5-14.5) % Plt Count (130-400) K/uL MPV (7.4-10.4) fL Immature Gran % (Auto) % Neut % (Auto) % Lymph % (Auto) % [place] % (Auto) % Eos % (Auto) % Baso % (Auto) % Neut # (Auto) (1.4-6.5) K/uL Lymph # (Auto) (1.2-3.4) K/uL [place] # (Auto) (0.11-0.59) K/uL Eos # (Auto) (0-0.5) K/uL Baso # (Auto) (0-0.2) K/uL Immature Gran # (Auto) (0.00-0.02) K/uL PT (9.0-12.0) Seconds INR (0.9-1.1) APTT (21.0-31.0) Seconds PTT Ratio Sodium (136-145) mmol/L Potassium (3.5-5.1) mmol/L Chloride (98-107) mmol/L Carbon Dioxide (21-32) mmol/L Anion Gap (3-11) BUN (6-23) mg/dl Creatinine (0.6-1.4) mg/dl Est Cr Clr Drug Dosing ml/min Est GFR ( Amer) ml/min Est GFR (Non-Af Amer) ml/min BUN/Creatinine Ratio (10-20) Glucose (70-99(Fasting)) mg/dl Lactate 0.8 (0.4-2.0) mmol/L Calcium (8.5-10.1) mg/dl Magnesium (1.7-2.4) mg/dl Total Bilirubin (0.2-1.0) mg/dl AST (13-39) U/L ALT (7-52) U/L Alkaline Phosphatase (34-104) U/L Total Protein (6.0-8.3) gm/dl Albumin (3.4-5.0) gm/dl Globulin (2.5-4.0) gm/dl Albumin/Globulin Ratio (0.9-2) Procalcitonin < 0.05 (0-0.5) ng/ml Urine Color Yellow Urine Appearance Clear (Clear) Urine pH 5.5 (4.5-7.5) Ur Specific [place] 1.024 (1.000-1.030) Urine Protein Negative (Negative) Urine Glucose (UA) Negative (Negative) Urine Ketones Trace H (Negative) Urine Blood Negative (Negative) Urine Nitrite Negative (Negative) Urine Bilirubin Negative (Negative) Urine Urobilinogen Negative (Negative) Ur Leukocyte Esterase Negative (Negative) SARS-CoV-2, RNA, NAAT (NEGATIVE) 11/02/21 Range/Units 21:25 WBC (4.8-10.8) K/uL RBC (4.7-6.1) M/uL Hgb (14.0-18.0) g/dL Hct (42-52) % MCV (80-100) fL MCH (25-34) pg MCHC (32-36) g/dL RDW Std Deviation (36.4-46.3) fL RDW Coeff of Paul (11.5-14.5) % Plt Count (130-400) K/uL MPV (7.4-10.4) fL Immature Gran % (Auto) % Neut % (Auto) % Lymph % (Auto) % [place] % (Auto) % Eos % (Auto) % Baso % (Auto) % Neut # (Auto) (1.4-6.5) K/uL Lymph # (Auto) (1.2-3.4) K/uL [place] # (Auto) (0.11-0.59) K/uL Eos # (Auto) (0-0.5) K/uL Baso # (Auto) (0-0.2) K/uL Immature Gran # (Auto) (0.00-0.02) K/uL PT (9.0-12.0) Seconds INR (0.9-1.1) APTT (21.0-31.0) Seconds PTT Ratio Sodium (136-145) mmol/L Potassium (3.5-5.1) mmol/L Chloride (98-107) mmol/L Carbon Dioxide (21-32) mmol/L Anion Gap (3-11) BUN (6-23) mg/dl Creatinine (0.6-1.4) mg/dl Est Cr Clr Drug Dosing ml/min Est GFR ( Amer) ml/min Est GFR (Non-Af Amer) ml/min BUN/Creatinine Ratio (10-20) Glucose (70-99(Fasting)) mg/dl Lactate (0.4-2.0) mmol/L Calcium (8.5-10.1) mg/dl Magnesium (1.7-2.4) mg/dl Total Bilirubin (0.2-1.0) mg/dl AST (13-39) U/L ALT (7-52) U/L Alkaline Phosphatase (34-104) U/L Total Protein (6.0-8.3) gm/dl Albumin (3.4-5.0) gm/dl Globulin (2.5-4.0) gm/dl Albumin/Globulin Ratio (0.9-2) Procalcitonin (0-0.5) ng/ml Urine Color Urine Appearance (Clear) Urine pH (4.5-7.5) Ur Specific [place] (1.000-1.030) Urine Protein (Negative) Urine Glucose (UA) (Negative) Urine Ketones (Negative) Urine Blood (Negative) Urine Nitrite (Negative) Urine Bilirubin (Negative) Urine Urobilinogen (Negative) Ur Leukocyte Esterase (Negative) SARS-CoV-2, RNA, NAAT NEGATIVE (NEGATIVE) Administered Medications Discontinued Medications Acetaminophen (Acetaminophen 1000 Mg/100 Ml Iv) 1,000 mg IV ONE ONE Stop: 11/02/21 21:43 Last Admin: 11/02/21 22:19 Dose: 1,000 mg Documented by: [id number] Heparin Sodium/Dextrose (Heparin Iv Adult Wt-Based Standard *No* Bolus Protocol) 1 ea N/A ONE ONE; Protocol Stop: 11/02/21 21:05 Last Admin: 11/02/21 22:03 Dose: Not Given Documented by: [id number] Sodium Chloride (Nss 1000ml) 1,000 mls @ 999 mls/hr IV .Q1H1M DARNELL Stop: 11/02/21 18:30 Last Infusion: 11/02/21 19:48 Dose: 0 mls/hr Documented by: [id number] Admin: 11/02/21 18:40 Dose: 999 mls/hr Documented by: [id number] Heparin Sodium/Dextrose (Heparin Sodium/Dextrose) 25,000 units in 500 mls @ 0. 02 mls/hr IV .Q24H DARNELL; Protocol Stop: 12/02/21 21:29 Last Admin: 11/02/21 22:03 Dose: Not Given Documented by: [id number] Tramadol HCl (Tramadol Hcl 50 Mg Tablet) 50 mg PO NOW STA Stop: 11/02/21 21:43 Last Admin: 11/02/21 22:20 Dose: 50 mg Documented by: [id number] Imaging Data Radiologist's Impression: Chest X-Ray 11/02/21 17:24 XR chest 1V portable CLINICAL HISTORY: SEPSIS. Evaluate cardiopulmonary status COMPARISON STUDY: 09/24/2021 TECHNIQUE: 1 view of the chest FINDINGS: Single frontal view of the chest demonstrates the cardiomediastinal silhouette to be within normal limits. There is a decreased inspiratory effort with elevation of the hemidiaphragms and crowding of the bronchovascular markings at the lung bases and centrally. The lungs are clear of alveolar opacities. There is no evidence for pleural effusion. There is no evidence for vascular co ngestion. There is no acute osseous pathology. IMPRESSION: 1. There is a decreased inspiratory effort with otherwise no acute chest disease. ACT 112: Negative or not required by law. Electronically signed by: Blair Rizzo M.D. 11/02/2021 5:59 PM Hip/Pelvis X-Ray 11/02/21 17:25 XR hip HONEY 2v w pelvis CLINICAL HISTORY: Left hip pain. Previous total hip replacement. COMPARISON STUDY: No previous studies for comparison. TECHNIQUE: AP pelvis and both hips each two views FINDINGS: Bones: There is no evidence for an acute fracture or dislocation. There is no lytic or blastic lesion. Joints: There is an intact noncemented total hip replacement on the left. There is mild narrowing of the right hip joint space. The bones are in anatomic alignm ent. Soft tissues: There is no focal soft tissue abnormality. There is no radiopaque foreign body. IMPRESSION: 1. No acute osseous pathology. 2. Mild degenerative changes of the right hip. 3. Intact left total hip replacement. ACT 112: Negative or not required by law. Electronically signed by: Blair Rizzo M.D. 11/02/2021 5:59 PM Venous Doppler Study 11/02/21 17:26 US venous doppler LE LT CLINICAL HISTORY: Left lower extremity pain, eval for DVT COMPARISON: None available at the time of this dictation. TECHNIQUE: Left lower extremity real-time compression venous ultrasound with Color Doppler imaging. Utilizing real-time ultrasonic imaging multiple real time high-resolution ultrasonic images with compression and noncompression maneuvers of the deep venous system in addition to color doppler imaging were performed from the common femoral vein through the proximal calf veins. FINDINGS: There is evidence for thrombus within the distal common femoral vein and extending through the superficial femoral vein to the popliteal vein. The posterior tibial veins are patent. Impression: Positive for DVT ACT 112: Negative or not required by law. Electronically signed by: Blair Rizzo M.D. 11/02/2021 8:48 PM Tibia/Fibula X-Ray 11/02/21 17:27 XR tibia fibula LT 2V CLINICAL HISTORY: Left lower leg pain. COMPARISON STUDY: No previous studies for comparison. TECHNIQUE: AP and lateral left lower leg views FINDINGS: Bones: There is no evidence for an acute fracture or dislocation. A sharply defined sclerotic bone lesion is seen involving the proximal tibial metaphysis most characteristic of a bone infarct versus enchondroma. There is no lytic or blastic lesion. Joints: The joint spaces are maintained. The bones are in anatomic alignment. Soft tissues: There is no focal soft tissue abnormality. There is no radiopaque foreign body. IMPRESSION: 1. No acute osseous pathology. 2. Evidence for bone infarct versus enchondroma involving the proximal tibial metaphysis. ACT 112: Negative or not required by law. Electronically signed by: Blair Rizzo M.D. 11/02/2021 5:57 PM Discharge Plan Visit Data Chief Complaint: Leg Injury/Pain Stated Complaint: Leg Pain ED Provider: Hussain Molina Discharge Problem: DVT (deep venous thrombosis) Forms Stand Alone Forms: [facility] Medical Prescriptions Prescriptions: No Action lamotrigine 200 mg tablet 200 mg PO BID Qty: 60 RF: 5 escitalopram oxalate [Lexapro] 10 mg tablet 10 mg PO DAILY RF: 0 acetaminophen [Children's Tylenol] 160 mg/5 mL suspension 960 mg PO Q4H PRN (Reason: Pain) RF: 0 acetaminophen [Tylenol] 325 mg tablet 650 mg PO Q4H PRN (Reason: Pain) RF: 0 ondansetron HCl 4 mg tablet 4 mg PO Q8H PRN (Reason: Nausea) RF: 0 bumetanide 1 mg tablet 1 mg PO BID Qty: 60 RF: 11 lorazepam 1 mg tablet 1 mg PO .COMPLEX PRN (Reason: Seizures) 30 Days Qty: 60 RF: 1 lamotrigine 25 mg tablet 50 mg PO BID RF: 0 trazodone 50 mg Tablet 0 mg PO HS RF: 0 phenytoin sodium extended 100 mg capsule 100 mg PO TID RF: 0 gabapentin 250 mg/5 mL (5 mL) Solution 50 mg PO QAM RF: 0 atorvastatin 40 mg tablet 40 mg PO HS RF: 0 warfarin 5 mg tablet 5 mg PO QPM RF: 0 Referrals Referrals: Anjana Villar CRNP [Primary Care Provider] - Discharge Problem: DVT (deep venous thrombosis) Qualifiers: DVT location: lower extremity Affected thrombotic vein of extremity: unspecified vein of extremity Chronicity: acute Laterality: left Qualified Code(s): I82.402 - Acute embolism and thrombosis of unspecified deep veins of left lower extremity
[2021-11-02] MEDS ORDERED: SODIUM CHLORIDE 0.9% 1000ML 1,000 ML IV SCH (17:30)
--- NOTE | 2021-11-02 17:58 | XRay Report ---
XR tibia fibula LT 2V CLINICAL HISTORY: Left lower leg pain. COMPARISON STUDY: No previous studies for comparison. TECHNIQUE: AP and lateral left lower leg views FINDINGS: Bones: There is no evidence for an acute fracture or dislocation. A sharply defined sclerotic bone le rashad is seen involving the proximal tibial metaphysis most characteristic of a bone infarct versus en chondroma. There is no lytic or blastic lesion. Joints: The joint spaces are maintained. The bones are in anatomic alignment. Soft tissues: There is no focal soft tissue abnormality. There is no radiopaque foreign body. IMPRESSION: 1. No acute osseous pathology. 2. Evidence for bone infarct versus enchondroma involving the proximal tibial metaphysis. ACT 112: Negative or not required by law. Electronically signed by: Blair Rizzo M.D. 11/02/2021 5:57 PM
--- NOTE | 2021-11-02 18:00 | XRay Report ---
XR hip HONEY 2v w pelvis CLINICAL HISTORY: Left hip pain. Previous total hip replacement. COMPARISON STUDY: No previous studies for comparison. TECHNIQUE: AP pelvis and both hips each two views FINDINGS: Bones: There is no evidence for an acute fracture or dislocation. There is no lytic or blastic lesion . Joints: There is an intact noncemented total hip replacement on the left. There is mild narrowing of the right hip joint space. The bones are in anatomic alignment. Soft tissues: There is no focal soft tissue abnormality. There is no radiopaque foreign body. IMPRESSION: 1. No acute osseous pathology. 2. Mild degenerative changes of the right hip. 3. Intact left total hip replacement. ACT 112: Negative or not required by law. Electronically signed by: Blair Rizzo M.D. 11/02/2021 5:59 PM
--- NOTE | 2021-11-02 18:01 | XRay Report ---
XR chest 1V portable CLINICAL HISTORY: SEPSIS. Evaluate cardiopulmonary status COMPARISON STUDY: 09/24/2021 TECHNIQUE: 1 view of the chest FINDINGS: Single frontal view of the chest demonstrates the cardiomediastinal silhouette to be within normal li mits. There is a decreased inspiratory effort with elevation of the hemidiaphragms and crowding of th e bronchovascular markings at the lung bases and centrally. The lungs are clear of alveolar opacities . There is no evidence for pleural effusion. There is no evidence for vascular congestion. There is n o acute osseous pathology. IMPRESSION: 1. There is a decreased inspiratory effort with otherwise no acute chest disease. ACT 112: Negative or not required by law. Electronically signed by: Blair Rizzo M.D. 11/02/2021 5:59 PM
[2021-11-02 18:57] LABS: Basophils # (auto) 0.01 K/uL (0-0.2); Basophils % (auto) 0.2 %; Eosinophils # (auto) 0.22 K/uL (0-0.5); Eosinophils % (auto) 4.1 %; Hematocrit (blood only) 41.3 % (42-52); Hemoglobin 14.1 g/dL (14.0-18.0); Lymphocytes # (auto) 1.26 K/uL (1.2-3.4); Lymphocytes % (auto) 23.5 %; Mean Corpuscular Hemoglobin 33.6 pg (25-34); Mean Corpuscular Hgb Conc 34.1 g/dL (32-36); Mean Corpuscular Volume 98.3 fL (80-100); Mean Platelet Volume 8.8 fL (7.4-10.4); Monocytes # (auto) 0.58 K/uL (0.11-0.59); Monocytes % (auto) 10.8 %; Neutrophils # (auto) 3.29 K/uL (1.4-6.5); Neutrophils % (auto) 61.4 %; Platelet Count 231 K/uL (130-400); RDW Coefficient of Variation 13.2 % (11.5-14.5); RDW Standard Deviation 47.4 fL (36.4-46.3); White Blood Count 5.36 K/uL (4.8-10.8)
[2021-11-02 19:07] LABS: Partial Thromboplastin Time 26.2 Seconds (21.0-31.0); Prothrombin Time 10.3 Seconds (9.0-12.0)
[2021-11-02 19:15] LABS: Albumin Globulin Ratio 1.1 (0.9-2); Albumin Level 3.6 gm/dl (3.4-5.0); BUN Creatinine Ratio 17.1 (10-20); Bilirubin,Total 0.5 mg/dl (0.2-1.0); Creatinine Clr Calc Pharmacy 125.6 ml/min; Est GFR (African American) 115.6 ml/min; Est GFR (Non-African American) 99.7 ml/min; Globulin 3.3 gm/dl (2.5-4.0); Magnesium 1.8 mg/dl (1.7-2.4); Potassium 3.5 mmol/L (3.5-5.1); Total Protein 6.9 gm/dl (6.0-8.3)
--- NOTE | 2021-11-02 20:49 | Ultrasound Report ---
US venous doppler LE LT CLINICAL HISTORY: Left lower extremity pain, eval for DVT COMPARISON: None available at the time of this dictation. TECHNIQUE: Left lower extremity real-time compression venous ultrasound with Color Doppler imaging. Utilizing real-time ultrasonic imaging multiple real time high-resolution ultrasonic images with comp ression and noncompression maneuvers of the deep venous system in addition to color doppler imaging w ere performed from the common femoral vein through the proximal calf veins. FINDINGS: There is evidence for thrombus within the distal common femoral vein and extending through the superf icial femoral vein to the popliteal vein. The posterior tibial veins are patent. Impression: Positive for DVT ACT 112: Negative or not required by law. Electronically signed by: Blair Rizzo M.D. 11/02/2021 8:48 PM
[2021-11-02 20:52] LABS: Appearance Urine Clear (Clear); Bilirubin Urine Negative (Negative); Blood Urine Negative (Negative); Color Urine Yellow; Glucose Urine UA Negative (Negative); Ketones Urine Trace (Negative); Leukocyte Esterase Urine Negative (Negative); Nitrite Urine Negative (Negative); Protein Urine Negative (Negative); Specific Gravity Urine 1.024 (1.000-1.030); Urobilinogen Urine Negative (Negative); pH Urine 5.5 (4.5-7.5)
[2021-11-02] MEDS ORDERED: Heparin IV Adult Wt-Based Standard *NO* Bolus Protocol ONE (21:04)
[2021-11-02] MEDS ORDERED: HEPARIN SODIUM/DEXTROSE 25,000 UNITS/500 ML BAG IV SCH (21:30)
[2021-11-02] MEDS ORDERED: ACETAMINOPHEN 1000 MG/100 ML IV IV ONE (21:42)
[2021-11-02] MEDS ORDERED: traMADol HCL 50 MG TABLET PO STA (21:42)
--- NOTE | 2021-11-02 22:41 | History & Physical Report ---
Date of Service November 02, 2021 Assessment & Plan (1) DVT (deep venous thrombosis): (2) Generalized epilepsy: (3) Benign hypertension: (4) AVANI (obstructive sleep apnea): Plan: 65 yo M Hx glioblastoma multiforme s/p resection with residual left-sided hemiparesis and chronic leg pain, seizure disorder, recurrent DVT, recent diagnosis of retroperitoneal bleed, Hx cerebral hemorrhage in 2018, HLD, HTN, mild cognitive impairment evaluated for left leg pain and admitted for acute DVT. Left leg DVT, leg pain: History of recurrent DVT previously on Coumadin. Medication held during September admission due to large retroperitoneal bleed. Was not resumed at home per . Presented with acute on chronic left leg pain, and found to have acute DVT in the distal common femoral vein extending through the superficial femoral vein to the popliteal vein. No hypoxia, shortness of breath; not likely to have PE. CT PE protocol with low dose Heparin gtt if suspicion of PE develops. Also noted on XR left leg to have bony infarct vs. endochondroma involving the proximal tibial metaphysis. CT ordered to further clarify bony pathology. No evidence of cellulitis on exam. WBC count normal. Heparin gtt initiated in ER; however, given recent large volume retroperitoneal bleed will hold this for now. Hematology consulted given high risk of both clotting and bleeding for recommendations. Vascular Surgery consulted to evaluate for IVC filter given relatively contraindicated to initiate anticoagulation given recent significant bleeding, and history of multiple bleeding episodes (retroperitoneal hematoma, cerebral hemorrhage). Risk/benefit of anticoagulation discussed at length with , who desires to hold anticoagulation at this time until evaluated by building consultant services. Tylenol as needed for mild to moderate pain, with tramadol ordered as needed for severe or breakthrough pain. PT and OT orders placed for after clinical evaluation to determine level of needs at home. Hx glioblastoma s/p resection, seizure disorder, left sided hemiparesis: History of glioblastoma s/p resection several years ago with residual left sided deficits. On phenytoin and lamotrigine for seizure prevention, will continue. Phenytoin dosage adjusted after discussion of home dose 200mg TID with patient's . No worsening of chronic focal deficits on exam. Continue gabapentin at home dose for neuropathy and leg spasms. HTN: Noted to have BP 160s/100s in ER. Not on medication for BP at home. Some element likely due to pain. Pain control as above. Lopressor as needed for SBP >160, DBP > 100. AVANI: History of, intolerant to CPAP. Supplemental oxygen as needed to maintain SpO2 >92%. Hx Transaminitis: Last admit noted to have mildly elevated LFTs and was diagnosed with EBV. LFTs normal this admission. Code Status: DNR/DNI, discussed with patient and confirmed by FEN: Heart healthy, low sodium diet; easy to chew given facial droop DVT ppx: anticoagulation not started given recent large retroperitoneal hematoma and blood loss anemia Dispo: Med/Surg with Telemetry History of Present Illness Chief Complaint: left leg worsening pain Primary Care Provider: TOBIN Tolbert 65 yo M Hx glioblastoma s/p resection with residual left sided deficits, seizure disorder, Hx retroperitoneal hematoma and cerebral hemorrhage, HLD, HTN, AVANI presented to the ER for worsening acute on chronic left leg pain. Per patient has had some leg pain since discharge from [facility] (admitted in September of this year, and had retroperitoneal hemorrhage during that admission). Coumadin was held for last admission, and consideration was had to restarting this medication several weeks following discharge, however it was not restarted. Patient is generally bed/wheelchair-bound at baseline. Today had worsening of his left leg pain prompting ER evaluation. Patient denies SOB, chest pain, fevers. In the ER patient was noted to have US LLE which revealed DVT, as well as XR leg which showed bony mass vs. infarct in tibia area. Patient was briefly started on Heparin gtt. Allergies Allergy/AdvReac Type Severity Reaction Status Date / Time gabapentin AdvReac Intermediate hallucinati Verified 11/02/21 18:12 ons Home Medications Medication Instructions Recorded Confirmed Type lamotrigine 200 mg tablet 200 mg PO BID #60 tab 07/09/21 11/02/21 Rx lamotrigine 25 mg tablet 50 mg PO BID 08/12/21 11/02/21 History acetaminophen 160 mg/5 mL oral 960 mg PO Q4H PRN ml 10/25/21 11/02/21 History suspension (Children's Tylenol) acetaminophen 325 mg tablet 650 mg PO Q4H PRN tab 10/25/21 11/02/21 History (Tylenol) bumetanide 1 mg tablet 1 mg PO BID #60 tab 10/25/21 11/02/21 Rx escitalopram oxalate 10 mg tablet 10 mg PO DAILY 10/25/21 11/02/21 History (Lexapro) lorazepam 1 mg tablet 1 mg PO .COMPLEX PRN 30 Days #60 10/25/21 11/02/21 Rx tab ondansetron HCl 4 mg tablet 4 mg PO Q8H PRN 10/25/21 11/02/21 History atorvastatin 40 mg tablet 40 mg PO HS 11/02/21 11/02/21 History gabapentin 250 mg/5 mL (5 mL) oral 50 mg PO QAM 11/02/21 11/02/21 History solution phenytoin sodium extended 100 mg 100 mg PO TID 11/02/21 11/02/21 History capsule trazodone 50 mg tablet 0 mg PO HS 11/02/21 11/02/21 History warfarin 5 mg tablet 5 mg PO QPM 11/02/21 11/02/21 History Past Med/Surg History Medical History Benign hypertension Cellulitis Chronic anticoagulation CKD (chronic kidney disease) stage 2, GFR 60-89 ml/min Closed left clavicular fracture Complex partial seizure Confusion COVID-19 09/07 DVT of leg (deep venous thrombosis) Fall Hx of brain cancer Glioblastoma Multiforme - 2003 - s/p resection [facility] Memory impairment Meningitis multiple episodes AVANI (obstructive sleep apnea) Small bowel obstruction Surgical History H/O cataract removal with insertion of prosthetic lens H/O shoulder surgery Hx of brain surgery 2003 initial resection for GBM at [facility]; 2006 - 2nd surgery, this time at [facility], ultimately was discovered to have blood clot & scar tissue rather than recurrent cancer Family History Father , in his mid 60s of cardiac issues. 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 Required: No Beliefs That Will Affect Care: None marital status: Current Living Situation: Spouse Current Living Situation Comment: lives in [facility]; 2 children 1st marriage; 2 children 2nd marriage current occupational status: retired 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, former [employer] How many Children do You have: 4 Other Information That Helps Us Care for You: 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 Feels Safe at Home: Yes Safety Concerns: Feels Safe At This Time Childhood Exposure to Second-Hand Smoke: No caffeine: No Dental Care, Regularly: Yes Physical Activity Frequency: Does not Exercise Seatbelt Use: never Sunscreen Use: No Assistive Devices: None Review of Systems Review of Systems: All systems reviewed & are unremarkable except as noted in HPI & below Constitutional: no fever, no chills and no malaise Respiratory: no cough and no dyspnea Cardiovascular: no chest pain, no palpitations and no edema Gastrointestinal: no abdominal pain, no constipation and no diarrhea/loose stools Physical Exam Constitutional: WD/WN, vitals as above Eyes: PERRL, conjunctivae normal, anicteric sclerae ENMT: external ear and nose normal, oropharynx normal (left facial droop) Neck: normal visual inspection Respiratory: normal respiratory effort, lungs clear to auscultation Cardiovascular: RRR, no murmur, no edema Gastrointestinal (Abdomen): normal bowel sounds, soft, nontender, no hepatosplenomegaly Musculoskeletal: venous stasis skin changes bilateral LE strength 1/5 in LUE and LLE; 5/5 strength in RUE and RLE Skin: no rashes, warm and dry Neurologic: alert, oriented to self, place. Left facial droop. Left upper and lower extremity decreased sensation as compared to right side (chronic issues). Psychiatric: A+Ox3, euthymic affect Results & Data Results & Data ([facility]) Vital Signs (Past 12 Hours) Vital Signs Temp Pulse Pulse Resp BP BP Pulse Ox 11/02/21 22:00 93 H 18 161/100 H 92 11/02/21 20:41 91 H 16 172/107 H 94 11/02/21 18:31 91 H 18 152/106 H 94 11/02/21 17:02 37.0 C 90 20 152/106 H 92 Code Status & VTE Plan VTE Prophylaxis Plan VTE Prophylaxis will be ordered: No Supervising Physician Co-Signing Physician Notes Attending addendum: I have physically seen this patient, have supervised the medical residents activities, and agree with the H&P unless as otherwise noted. Assessment and Plan: Left lower extremity DVT- Previously on warfarin but discontinued in September due to large retroperitoneal bleed Do not consider him an anticoagulation candidate at this time Consult vascular surgery for possible IVC filter Glioblastoma status post resection/seizure disorder/left sided hemiparesis- Continue routine medications as noted Remaining orders and notations as noted Resident Activity Tracking Resident Involvement: Resident Care Provided Care Provided: Adult Hospital Medicine (1) DVT (deep venous thrombosis) Affected thrombotic vein of extremity: unspecified vein of extremity Chronicity: acute DVT location: lower extremity Laterality: left Qualified Code(s): I82.402 - Acute embolism and thrombosis of unspecified deep veins of left lower extremity
[2021-11-02] MEDS ORDERED: METOPROLOL TARTRATE 1 MG/ML VIAL IV PRN (23:23)
[2021-11-02] MEDS: PHENYTOIN SODIUM ER 100 MG CAP PO SCH (23:30)
[2021-11-02] MEDS: lamoTRIgine 100 MG TAB PO SCH (23:31)
[2021-11-02] MEDS: lamoTRIgine 25 MG TAB PO SCH (23:31)
[2021-11-03] MEDS ORDERED: OPTIRAY 320 100ml IV ONE (00:17)
[2021-11-03] MEDS ORDERED: POLYETHYLENE (MIRALAX) 17 GM PACK PO PRN (00:49)
[2021-11-03] MEDS ORDERED: LORazepam 1 MG TAB PO PRN (02:27)
[2021-11-03] MEDS: traMADol HCL 50 MG TABLET PO PRN (06:10)
[2021-11-03] MEDS ORDERED: METOPROLOL TARTRATE 50 MG TAB PO ONE (08:00)
--- NOTE | 2021-11-03 08:44 | CT Scan Report ---
CT SCAN OF THE LEFT TIBIA AND FIBULA WITH IV CONTRAST CLINICAL HISTORY: Abnormal radiographs. Enchondroma versus bone infarct. COMPARISON STUDY: Radiographs of the left tibia and fibula dated 11/02/2021. Left femoral radiographs dated 07/23/2020. Left lower extremity venous ultrasound dated 11/02/2021. TECHNIQUE: Following the IV administration of 95 cc of Optiray 320, CT scan of the left tibia and fib jomar is performed from the knee to the ankle. Images reviewed in the axial, sagittal, and coronal plan es. IV contrast was administered without complication. A dose lowering technique was utilized adherin g to the principles of ALARA. CT DOSE: 390.21 mGy.cm FINDINGS: The skeletal structures are osteopenic. Serpiginous sclerotic foci seen bilaterally within the distal femoral metaphysis, within both femoral condyles on the articular surface, and within the proximal tibial metaphysis are unchanged from 07/23/2020 and typical in appearance for bone infarcts. Similar findings are noted in the right knee on the potato chip sorter tomogram. There is no fracture. Mild degene rative change is noted in the knee and ankle joints. There is no ankle joint effusion. Generalized mu sculature atrophy is seen throughout the left lower extremity. There is advanced atherosclerotic hess ge noted in the regional arteries. The lower extremity vessels appear patent as imaged. The Achilles tendon is intact as visualized. There is soft tissue edema seen anteriorly throughout the calf. No or ganized fluid collection is seen to suggest abscess. Filling defects within the distal superficial fe moral vein and the popliteal vein are consistent with known deep venous thrombosis. IMPRESSION: 1. Soft tissue edema with no acute bony abnormality identified. 2. Serpiginous sclerotic foci within the distal femur and proximal tibia are unchanged from 05/07/2020 radiographs and are typical for multifocal bone infarcts. 3. Similar findings are noted in the right knee on the potato chip sorter tomogram. 4. Generalized atrophy of the regional musculature. 5. Left lower extremity deep venous thrombosis is again noted and was better assessed on today's ultr asound. ACT 112: Negative or not required by law. Dictated: 11/03/2021 8:03 AM Transcribed: 11/03/2021 8:38 AM Mylene [id number] [email or web address]_Marcy Electronically signed by: John De La Garza M.D. 11/03/2021 8:43 AM
[2021-11-03] MEDS ORDERED: GABAPENTIN 250 MG/5 ML 470 ML BTL PO SCH (09:00)
[2021-11-03] MEDS: lamoTRIgine 25 MG TAB PO SCH ×2 (09:41→21:31)
[2021-11-03] MEDS: ESCITALOPRAM OXALATE 10 MG TAB PO SCH (09:41)
[2021-11-03] MEDS: PHENYTOIN SODIUM ER 100 MG CAP PO SCH ×3 (09:41→21:32)
[2021-11-03] MEDS: lamoTRIgine 100 MG TAB PO SCH ×2 (09:41→21:32)
[2021-11-03] MEDS: LORazepam 0.5 MG TAB PO PRN (09:42)
--- NOTE | 2021-11-03 12:33 | Consultation ---
Date of Consultation November 03, 2021 Assessment & Plan (1) DVT (deep venous thrombosis): Pt with acute DVT in LLE. Pt is not currently anticoagulated and there is no sign of active bleeding presently. His previous episode of spontaneous bleeding was most likely related to his supratherapeutic INR, as he has been on coumadin for considerable time prior to this. Pt discussed with Dr Pierre. Does not recommend IVC filter insertion at this time. Recommends reinitiation of AC. If new episode of bleeding occurs while on therapeutic AC, then would reconsider for IVC filter insertion. Please call if needed. Affected thrombotic vein of extremity: unspecified vein of extremity Chronicity: acute DVT location: lower extremity Laterality: left Qualified Code(s): I82.402 - Acute embolism and thrombosis of unspecified deep veins of left lower extremity History of Present Illness Reason for Consultation: LLE DVT, possible IVC filter Attending Physician: Jarad Bro MD History of Present Illness 65 yo m with multiple medical problems, including CKD, dyslipidemia, epilepsy, anemia, L sided hemiparesis s/p glioblastoma removal, AVANI, osteoarthritis, cognitive dysfunction, DVT, admitted with acute LLE DVT, and seen in consultation today for possible IVC filter placement. Pt is a very poor historian, but states he had a DVT once before and was on blood thinners. States he has chronic pain in [facility] for years, but it was worse recently, so came to [facility]. Per chart, pt's AC was d/c after he developed a psoas hematoma d/t supratherapeutic INR. He was to hold it for a few weeks and then restart it, but it does not appear to have been restarted, even though his PCP video visit note indicates she advised him to restart the AC over a week ago. Pt does have a hx of brain hemorrhage a few years ago as well. Pt himself states he is feeling better since arrival here. Denies WEAVER, fever, chest pain, SOB, abd pain, N/V, other concerns. Pt does not ambulate d/t L sided hemiparesis. Venous US of LLE demonstrates DVT in femoral to pop veins. Allergies Allergy/AdvReac Type Severity Reaction Status Date / Time gabapentin AdvReac Intermediate hallucinati Verified 11/02/21 18:12 ons Home Medications Medication Instructions Recorded Confirmed Type lamotrigine 200 mg tablet 200 mg PO BID #60 tab 07/09/21 11/02/21 Rx lamotrigine 25 mg tablet 50 mg PO BID 08/12/21 11/02/21 History acetaminophen 160 mg/5 mL oral 960 mg PO Q4H PRN ml 10/25/21 11/02/21 History suspension (Children's Tylenol) acetaminophen 325 mg tablet 650 mg PO Q4H PRN tab 10/25/21 11/02/21 History (Tylenol) bumetanide 1 mg tablet 1 mg PO BID #60 tab 10/25/21 11/02/21 Rx escitalopram oxalate 10 mg tablet 10 mg PO DAILY 10/25/21 11/02/21 History (Lexapro) lorazepam 1 mg tablet 1 mg PO .COMPLEX PRN 30 Days #60 10/25/21 11/02/21 Rx tab ondansetron HCl 4 mg tablet 4 mg PO Q8H PRN 10/25/21 11/02/21 History atorvastatin 40 mg tablet 40 mg PO HS 11/02/21 11/02/21 History gabapentin 250 mg/5 mL (5 mL) oral 50 mg PO QAM 11/02/21 11/02/21 History solution phenytoin sodium extended 100 mg 100 mg PO TID 11/02/21 11/02/21 History capsule trazodone 50 mg tablet 0 mg PO HS 11/02/21 11/02/21 History warfarin 5 mg tablet 5 mg PO QPM 11/02/21 11/02/21 History Patient History Medical History Benign hypertension Cellulitis Chronic anticoagulation CKD (chronic kidney disease) stage 2, GFR 60-89 ml/min Closed left clavicular fracture Complex partial seizure Confusion COVID-19 09/07 DVT of leg (deep venous thrombosis) Fall Hx of brain cancer Glioblastoma Multiforme - 2003 - s/p resection [facility] Memory impairment Meningitis multiple episodes AVANI (obstructive sleep apnea) Small bowel obstruction Surgical History H/O cataract removal with insertion of prosthetic lens H/O shoulder surgery Hx of brain surgery 2003 initial resection for GBM at [facility]; 2006 - 2nd surgery, this time at [facility], ultimately was discovered to have blood clot & scar tissue rather than recurrent cancer Family History Father , in his mid 60s of cardiac issues. CHF (congestive heart failure) Myocardial infarction Denies family history of Brain tumor Ovarian cancer Prostate cancer Breast cancer SBO (small bowel obstruction) Colorectal cancer Social History Smoking Status: Never smoker Second Hand Exposure: No; Hx Alcohol Use: No Hx Substance Use: No Preferred Language: Croatian Communication Ability: Effective Regional Business Development Manager Required: No Beliefs That Will Affect Care: None marital status: Current Living Situation: Spouse Current Living Situation Comment: lives in [facility]; 2 children 1st marriage; 2 children 2nd marriage current occupational status: retired 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, 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 How many Children do You have: 4 Other Information That Helps Us Care for You: 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 Feels Safe at Home: Yes Safety Concerns: Feels Safe At This Time Childhood Exposure to Second-Hand Smoke: No caffeine: No Dental Care, Regularly: Yes Physical Activity Frequency: Does not Exercise Seatbelt Use: never Sunscreen Use: No Assistive Devices: Cane and Glasses Review of Systems Review of Systems: All systems reviewed & are unremarkable except as noted in HPI & below Physical Exam Constitutional: WD/WN, vitals as above ENMT: Ears: no hearing impairment Neck: trachea midline Respiratory: normal respiratory effort Auscultation: + diminished lung sounds Cardiovascular: Rate/Rhythm: regular rate and regular rhythm Vessels: femoral pulses present, posterior tibial pulses present, dorsalis pedis pulses present and radial pulses present; + abnormal peripheral pulses Extremities: normal capillary refill and + edema Gastrointestinal (Abdomen): Inspection/Auscultation: abdomen normal to inspection and normal bowel sounds Percussion/Palpation: abdomen soft; abdomen nontender Musculoskeletal: Extremities: + abnormal strength (LLE/LUE 1/5); no cyanosis Skin: no rashes, warm and dry Neurologic: + focal motor deficit (LLE) and awake Results & Data ([facility]) Vital Signs (Past 12 Hours) Vital Signs Temp Pulse Pulse Resp BP Pulse Ox 11/03/21 07:54 36.7 C 93 H 16 119/87 92 11/03/21 06:59 36.5 C 90 20 159/102 H 93 11/03/21 04:58 36.8 C 94 H 20 137/90 92 11/03/21 02:30 36.4 C L 92 H 18 160/107 H 93 11/03/21 01:39 89 11/03/21 01:23 36.4 C L 92 H 18 160/107 H 93
--- NOTE | 2021-11-03 13:08 | Hospitalist Progress Note ---
Date of Service November 03, 2021 Assessment & Plan (1) DVT (deep venous thrombosis): Plan: Vascular surgery consultation noted. Reinitiation of systemic anticoagulation recommended since previous retroperitoneal bleed was probably due to supratherapeutic INR. Lovenox 1 mg/kg subcutaneously every 12 hours initiated with eventual switch to either Coumadin or a NOAC. No apparent indication for IVC filter placement at this time (2) CKD (chronic kidney disease) stage 2, GFR 60-89 ml/min: Plan: Monitor intake and output. Serial lab studies (3) Hemiparesis of left nondominant side: Plan: From previous resection of glioblastoma multiforme he. Supportive care (4) Benign hypertension: Plan: Metoprolol added for blood pressure and heart rate control (5) Seizure disorder: Plan: Currently stable. Continue anticonvulsant medication Plan: Eventual discharge back to home Admission and Anticipated Discharge Date Admission Date: November 02, 2021 Subjective Alert and oriented. No acute distress. Vascular surgery entry noted. Recent retroperitoneal bleed appears to be related to supratherapeutic INR. Reinitiation of systemic anticoagulation is recommended without IVC filter placement at this time. We will start Lovenox 1 mg/kg subcutaneously every 12 hours and eventually transition back to Coumadin or a NOAC. Metoprolol added today for heart rate and blood pressure control Review of Systems Review of Systems: Constitutional-no fever or chills ENT-no blurred vision, no double vision, no epistaxis, no sore throat Respiratory-no cough, no wheezing, no shortness of breath Cardiac-no palpitations, no chest pain, no syncope GI-no nausea, vomiting, diarrhea, melena, hematochezia -no urinary retention, no urinary incontinence, no dysuria, no hematuria Musculoskeletal-no joint pain, no muscle tenderness Skin-no bruising, no rashes, no pruritus Neuro-left hemiparesis after prior resection of GBM. Psych-no depression, no anxiety Physical Exam Physical Exam: General-alert and oriented x3, no fevers, no chills HEENT-head atraumatic and normocephalic, TMs intact bilaterally, pupils equal and reactive to light, extraocular muscles intact Neck-no lymphadenopathy or thyromegaly, trachea midline Chest-clear to auscultation percussion. No rales wheezing or rhonchi Cardiac-regular rate and rhythm, normal S1 and S2, no murmurs Abdomen-normal bowel sounds, nontender, no hepatosplenomegaly Extremities-no cyanosis, clubbing, or edema Neuro-chronic left hemiparesis/hemiplegia from resection of GBM. Left leg held in contractured position. Psych-normal affect, normal mood Results & Data Results & Data ([facility]) Vital Signs (Past 12 Hours) Vital Signs Temp Pulse Pulse Resp BP Pulse Ox 11/03/21 12:45 88 11/03/21 07:54 36.7 C 93 H 16 119/87 92 11/03/21 06:59 36.5 C 90 20 159/102 H 93 11/03/21 04:58 36.8 C 94 H 20 137/90 92 11/03/21 02:30 36.4 C L 92 H 18 160/107 H 93 11/03/21 01:39 89 11/03/21 01:23 36.4 C L 92 H 18 160/107 H 93 Laboratory Results 11/02/21 18:43 11/02/21 18:43 PG Care Time/CCT Total # of Minutes Spent Total Time Spent with Patient: Total time spent is greater than 50% in coordination of care (as documented) at patient's floor/unit and/or counseling patient: Coding Level of Care Code 90419 Subseq Hosp Care Lvl 3 Diagnoses DVT (deep venous thrombosis) I82.402 Affected thrombotic vein of extremity: unspecified vein of extremity Chronicity: acute DVT location: lower extremity Laterality: left CKD (chronic kidney disease) stage 2, GFR 60-89 ml/min N18.2 Hemiparesis of left nondominant side G81.94 Hemiparesis etiology: unspecified Benign hypertension I10 Seizure disorder G40.909 (1) DVT (deep venous thrombosis) Affected thrombotic vein of extremity: unspecified vein of extremity Chronicity: acute DVT location: lower extremity Laterality: left Qualified Code(s): I82.402 - Acute embolism and thrombosis of unspecified deep veins of left lower extremity (2) Hemiparesis of left nondominant side Hemiparesis etiology: unspecified Qualified Code(s): G81.94 - Hemiplegia, unspecified affecting left nondominant side
--- NOTE | 2021-11-03 14:04 | Electrocardiogram Report ---
Test Reason : Blood Pressure : / mmHG Vent. Rate : 090 BPM Atrial Rate : 090 BPM P-R Int : 146 ms QRS Dur : 090 ms QT Int : 376 ms P-R-T Axes : 035 -19 033 degrees QTc Int : 459 ms Sinus rhythm with Fusion complexes Possible Left atrial enlargement Left ventricular hypertrophy Nonspecific T wave abnormality Abnormal ECG When compared with ECG of 15-SEP-2021 16:45, Fusion complexes are now Present Premature ventricular complexes are now Present Premature supraventricular complexes are no longer Present Questionable change in QRS axis Confirmed by Nayan Phan ([id number]) on 11/03/2021 2:03:46 PM Referred By: REFERRED SELF Confirmed By:Nayan Phan
[2021-11-03] MEDS: ENOXAPARIN 100 MG/1ML SYR SQ SCH (14:36)
--- NOTE | 2021-11-03 15:28 | Consultation Report ---
DATE OF CONSULTATION: 11/03/2021. REASON FOR CONSULTATION: Acute DVT, recent history of large retroperitoneal bleed. HISTORY OF PRESENT ILLNESS: The patient is a 65-year-old gentleman with medical history significant for reported history of glioblastoma for which he had surgical resection in 2003 and 2006 with residual neurologic deficits including left hemiparesis. He also has a medical history of extensive left lower extremity DVT, initially diagnosed in 09/2016 for which he was treated initially with warfarin after which warfarin was discontinued. Patient then had recurrence in 02/2020, at which time warfarin was restarted. He then presented to the hospital in 09/2021 with COVID-19 pneumonia. During that hospitalization, patient was noted to have transaminitis suggestive of acute liver injury and INR was noted to be significantly elevated at greater than 6. Patient was subsequently found to have a large retroperitoneal/psoas hematoma for which Coumadin was discontinued. He was subsequently discharged home and did not restart anticoagulation. The patient was readmitted on 10/25/2021 with worsening left lower extremity swelling. Ultrasound obtained on 11/02/2021 revealed evidence of DVT within the distal common femoral vein and extending through the left superficial femoral vein to the popliteal vein in the left lower extremity. Hematology was consulted for recommendations on anticoagulation given recent retroperitoneal bleed. During my evaluation of patient today, he complains of left lower extremity pain and swelling. Otherwise, denies any other complaints. PAST MEDICAL HISTORY: 1. Hypertension. 2. Recurrent left lower extremity DVT. 3. Left hemiparesis. 4. History of glioblastoma. 5. Obstructive sleep apnea. PAST SURGICAL HISTORY: 1. Brain surgery. 2. Shoulder surgery. MEDICATIONS PRIOR TO ADMISSION: 1. Lamotrigine. 2. Bumex. 3. Citalopram. 4. Atorvastatin. 5. Phenytoin. 6. Gabapentin. 7. Trazodone. ALLERGIES: GABAPENTIN. SOCIAL HISTORY: Denies smoking, alcohol and illicit drug use. FAMILY HISTORY: Denies any family history of malignancies or VTE. REVIEW OF SYSTEMS:. GENERAL: Denies fever, chills, night sweats or weight loss. HEENT: Denies abnormal bleeding or bruising. Positive for psoas/retroperitoneal hematoma. CHEST: Denies chest pain or shortness of breath. HEART: Denies palpitations or chest pain. ABDOMEN: Denies abdominal pain, nausea, vomiting or diarrhea. : Denies change in urinary habits. MUSCULOSKELETAL: Denies joint pain. NEUROLOGIC: Left-sided upper and lower extremity weakness. PHYSICAL EXAMINATION: VITAL SIGNS: Blood pressure 109/73, heart rate 73, respiratory rate 16, temperature 36.7, oxygen saturation 94% on room air. GENERAL: Gentleman, in no obvious respiratory distress. HEENT: Mucous membranes moist. CHEST: Clear to auscultation bilaterally with no crepitations. HEART: Regular rate and rhythm with no murmurs. ABDOMEN: Soft, nontender, nondistended with normoactive bowel sounds. EXTREMITIES: Left lower extremity swelling. NEUROLOGIC: Appeared confused at times. Alert and oriented x3. LABORATORY DATA: CBC obtained on 11/02/2021 revealed white count of 5.36, hemoglobin of 14, hematocrit of 41.3, and platelet count of 231 with a PT of 10.3, INR of 1.0 and PTT of 26.2. Chemistry was overall unremarkable. ASSESSMENT: 1. Recurrent left lower extremity deep venous thrombosis, likely due to lower extremity weakness. 2. History of glioblastoma with residual left hemiparesis 3. History of retroperitoneal/psoas hematoma with supratherapeutic INR. PLAN: Pleasant 65-year-old gentleman with recurrent left lower extremity DVT, most likely due to weakness from left hemiparesis. He was recently discharged from hospital after developing retroperitoneal/psoas hematoma, most likely from supratherapeutic INR. Given concern for bleeding, agree with vascular surgery evaluation for IVC filter placement. I would recommend starting the patient on prophylactic dosing of anticoagulation with either Lovenox 40 mg subcutaneously daily or heparin 5000 International Units subcutaneously b.i.d. and monitor for any signs of bleeding. If the patient does not have any signs of bleeding, recommend discharging him home on prophylactic anticoagulation with Lovenox or apixaban 2.5 mg p.o. b.i.d. I will follow up with patient in clinic, at which time if he continues to do well, we will consider increasing him to treatment dose of anticoagulation. Patient may also benefit from hypercoagulable testing as an outpatient. Thank you for this consult. Hematology will follow the patient while in the hospital and see him in clinic upon discharge. Please feel free to call if you have any further questions or concerns. Job ID: [id number] [facility]
--- NOTE | 2021-11-03 21:18 | Billing Data ---
Date of Service November 03, 2021 Coding Level of Care Code 76929 Initial Inpt Care Lvl 3
[2021-11-03] MEDS: ATORVASTATIN 40 MG TAB PO SCH (21:31)
[2021-11-03] MEDS: METOPROLOL TARTRATE 50 MG TAB PO SCH (21:32)
[2021-11-04] MEDS: ENOXAPARIN 100 MG/1ML SYR SQ SCH ×2 (00:34→09:07)
[2021-11-04] MEDS: GABAPENTIN 250 MG/5 ML 470 ML BTL PO SCH (07:15)
[2021-11-04 08:19] LABS: Basophils # (auto) 0.01 K/uL (0-0.2); Basophils % (auto) 0.2 %; Eosinophils # (auto) 0.18 K/uL (0-0.5); Eosinophils % (auto) 3.7 %; Hematocrit (blood only) 41.8 % (42-52); Hemoglobin 14.3 g/dL (14.0-18.0); Lymphocytes # (auto) 1.08 K/uL (1.2-3.4); Lymphocytes % (auto) 22.5 %; Mean Corpuscular Hemoglobin 33.1 pg (25-34); Mean Corpuscular Hgb Conc 34.2 g/dL (32-36); Mean Corpuscular Volume 96.8 fL (80-100); Mean Platelet Volume 8.9 fL (7.4-10.4); Monocytes # (auto) 0.44 K/uL (0.11-0.59); Monocytes % (auto) 9.1 %; Neutrophils % (auto) 64.5 %; Platelet Count 216 K/uL (130-400); RDW Coefficient of Variation 13.1 % (11.5-14.5); RDW Standard Deviation 46.8 fL (36.4-46.3); Red Blood Count 4.32 M/uL (4.7-6.1); White Blood Count 4.81 K/uL (4.8-10.8)
[2021-11-04 08:38] LABS: BUN Creatinine Ratio 16.4 (10-20); Calcium 9.2 mg/dl (8.5-10.1); Creatinine Clr Calc Pharmacy 119.8 ml/min; Est GFR (African American) 113.6 ml/min; Potassium 3.7 mmol/L (3.5-5.1)
[2021-11-04] MEDS: METOPROLOL TARTRATE 50 MG TAB PO SCH ×2 (09:06→22:47)
[2021-11-04] MEDS: lamoTRIgine 100 MG TAB PO SCH ×2 (09:06→22:47)
[2021-11-04] MEDS: ESCITALOPRAM OXALATE 10 MG TAB PO SCH (09:06)
[2021-11-04] MEDS: PHENYTOIN SODIUM ER 100 MG CAP PO SCH ×3 (09:07→22:47)
[2021-11-04] MEDS: lamoTRIgine 25 MG TAB PO SCH ×2 (09:07→22:47)
[2021-11-04] MEDS: traMADol HCL 50 MG TABLET PO PRN ×2 (09:44→22:50)
--- NOTE | 2021-11-04 11:00 | Hospitalist Progress Note ---
Date of Service November 04, 2021 Assessment & Plan (1) DVT (deep venous thrombosis): Plan: 65 yo M Hx glioblastoma multiforme s/p resection with residual left-sided hemiparesis and chronic leg pain, seizure disorder, recurrent DVT, recent diagnosis of retroperitoneal bleed, Hx cerebral hemorrhage in 2018, HLD, HTN, mild cognitive impairment evaluated for left leg pain and admitted for acute DVT. Left leg DVT, recurrent on Coumadin Medication had been held in September due to retroperitoneal bleed Acute on chronic leg pain, patient with acute DVT in distal common femoral vein into superficial femoral vein/popliteal Did not show evidence of PE during admission Hematology and vascular surgery were consulted. Vascular surgery consulted, did not recommend IVC filter placement unless patient had continued bleeding on full dose anticoagulation. Discussed oncology 11/04. After patient will be a poor candidate for IVC filter placement was put on Lovenox 1mpk twice daily therapeutic dosing. He is very high risk for bleed, and it was recommended that he not be on full dose Lovenox at this time but have a lower dose anticoagulation gradually increased as outpatient assuming he does well. DOAC therapy was considered but unfortunately contraindicated due to his phenytoin use. As such discussed ongoing Lovenox, recommended 40 mg subcu once daily and then increased as outpatient with close follow-up to oncology if hemoglobin remaining stable. Hemoglobin 14.3 today Tylenol as needed for pain, tramadol as needed for breakthrough pain PT/OT saw 11/03, recommend SNF. Pend placement and follow hgb for stability (2) Generalized epilepsy: Plan: Continue phenytoin (3) Benign hypertension: Plan: Currently normotensive Continue metoprolol 50 mg p.o. 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 Patient has an allergy as hallucinations of this, but also takes low-dose 50 mg tolerating at home Plan: Code Status: DNR/DNI, discussed with patient and confirmed by FEN: Heart healthy, low sodium diet; easy to chew given facial droop DVT ppx: See above, Lovenox 40 Dispo: Med/Surg with Telemetry Admission and Anticipated Discharge Date Admission Date: November 02, 2021 Subjective Sleeping comfortably in room. No acute distress.. Left hemiparesis, no acute change. Revisited midmorning, patient reports he is not sure why he is in the hospital, but is aware he is in the hospital. Is not oriented to date. Endorses some discomfort in his right heel left leg which improves with flexing his toes. Denies fever, chills, sweats, shortness of breath, difficulty breathing. Review of Systems Review of Systems: All systems reviewed & are unremarkable except as noted in Subjective Physical Exam Physical Exam: General: Sleeping on entry, awakens easily. A&Ox3. NAD. Cooperative. HEENT: Atraumatic, normocephalic. Pulm: CTAB A&P. -wheezes, -rales, -rhonchi. Symmetrical chest rise. No increase in work of breathing. No respiratory distress. Cardiac: RRR, -mrg. Radial pulses intact and symmetrical. Abdominal: Nontender, nondistended, soft. BS present. Extremities: Left hemiparesis, left leg contracted. No hematoma/bruising appreciated. Results & Data Results & Data ([facility]) Vital Signs (Past 12 Hours) Vital Signs Temp Pulse Pulse Resp BP Pulse Ox 11/04/21 06:40 36.7 C 90 18 124/88 92 11/04/21 06:16 84 11/04/21 02:40 36.5 C 86 20 116/82 94 11/03/21 23:00 84 11/03/21 22:55 36.7 C 85 20 97/68 L 90 PG Care Time/CCT Total # of Minutes Spent Total Time Spent with Patient: Total time spent is greater than 50% in coordination of care (as documented) at patient's floor/unit and/or counseling patient: Coding Level of Care Code 90410 Subseq Hosp Care Lvl 2 Diagnoses DVT (deep venous thrombosis) I82.402 Affected thrombotic vein of extremity: unspecified vein of extremity Chronicity: acute DVT location: lower extremity Laterality: left Generalized epilepsy G40.309 Benign hypertension I10 Hemiparesis of left nondominant side G81.94 Hemiparesis etiology: unspecified (1) DVT (deep venous thrombosis) Affected thrombotic vein of extremity: unspecified vein of extremity Chronicity: acute DVT location: lower extremity Laterality: left Qualified Code(s): I82.402 - Acute embolism and thrombosis of unspecified deep veins of left lower extremity (2) Hemiparesis of left nondominant side Hemiparesis etiology: unspecified Qualified Code(s): G81.94 - Hemiplegia, unspecified affecting left nondominant side
[2021-11-04] MEDS: ACETAMINOPHEN 325 MG TAB PO PRN (12:57)
[2021-11-04] MEDS: ATORVASTATIN 40 MG TAB PO SCH (22:47)
[2021-11-05] MEDS: ACETAMINOPHEN 325 MG TAB PO PRN (01:12)
[2021-11-05] MEDS: traMADol HCL 50 MG TABLET PO PRN ×3 (03:42→21:34)
[2021-11-05] MEDS: ENOXAPARIN INJ 40 MG/0.4 ML SYR SQ SCH (08:31)
[2021-11-05] MEDS: lamoTRIgine 25 MG TAB PO SCH ×2 (08:33→21:16)
[2021-11-05] MEDS: PHENYTOIN SODIUM ER 100 MG CAP PO SCH ×3 (08:33→21:17)
[2021-11-05] MEDS: METOPROLOL TARTRATE 50 MG TAB PO SCH ×2 (08:33→21:16)
[2021-11-05] MEDS: ESCITALOPRAM OXALATE 10 MG TAB PO SCH (08:33)
[2021-11-05] MEDS: GABAPENTIN 250 MG/5 ML 470 ML BTL PO SCH (08:33)
[2021-11-05] MEDS: lamoTRIgine 100 MG TAB PO SCH ×2 (08:33→21:16)
[2021-11-05] MEDS ORDERED: APIXABAN 2.5 MG TAB PO SCH (09:00)
[2021-11-05 10:40] LABS: Basophils # (auto) 0.01 K/uL (0-0.2); Basophils % (auto) 0.2 %; Eosinophils # (auto) 0.21 K/uL (0-0.5); Eosinophils % (auto) 3.8 %; Hemoglobin 14.2 g/dL (14.0-18.0); Lymphocytes # (auto) 1.09 K/uL (1.2-3.4); Mean Corpuscular Hemoglobin 32.8 pg (25-34); Mean Corpuscular Hgb Conc 33.8 g/dL (32-36); Monocytes # (auto) 0.59 K/uL (0.11-0.59); Monocytes % (auto) 10.8 %; Neutrophils # (auto) 3.56 K/uL (1.4-6.5); Neutrophils % (auto) 65.2 %; Platelet Count 239 K/uL (130-400); RDW Coefficient of Variation 13.1 % (11.5-14.5); RDW Standard Deviation 46.9 fL (36.4-46.3); Red Blood Count 4.33 M/uL (4.7-6.1); White Blood Count 5.46 K/uL (4.8-10.8)
[2021-11-05 11:02] LABS: BUN Creatinine Ratio 17.1 (10-20); Calcium 9.2 mg/dl (8.5-10.1); Creatinine Clr Calc Pharmacy 115.2 ml/min; Est GFR (African American) 111.7 ml/min; Est GFR (Non-African American) 96.4 ml/min; Potassium 3.9 mmol/L (3.5-5.1)
--- NOTE | 2021-11-05 13:44 | Hospitalist Progress Note ---
Date of Service November 05, 2021 Assessment & Plan (1) DVT (deep venous thrombosis): Plan: 65 yo M Hx glioblastoma multiforme s/p resection with residual left-sided hemiparesis and chronic leg pain, seizure disorder, recurrent DVT, recent diagnosis of retroperitoneal bleed, Hx cerebral hemorrhage in 2018, HLD, HTN, mild cognitive impairment evaluated for left leg pain and admitted for acute DVT. Left leg DVT, recurrent on Coumadin Medication had been held in September due to retroperitoneal bleed Acute on chronic leg pain, patient with acute DVT in distal common femoral vein into superficial femoral vein/popliteal Did not show evidence of PE during admission Hematology and vascular surgery were consulted. Vascular surgery consulted, did not recommend IVC filter placement unless patient had continued bleeding on full dose anticoagulation. Discussed with hematology extensively 11/04 After patient will be a poor candidate for IVC filter placement was put on Lovenox 1mpk twice daily therapeutic dosing. He is very high risk for bleed, and it was recommended that he not be on full dose Lovenox at this time but have a lower dose anticoagulation gradually increased as outpatient assuming he does well. DOAC therapy was considered but unfortunately contraindicated due to his phenytoin use. As such discussed ongoing Lovenox, recommended 40 mg subcu once daily and then increased as outpatient with close follow-up to oncology if hemoglobin remaining stable. Tylenol as needed for pain, tramadol as needed for breakthrough pain PT/OT saw 11/03, recommend SNF. Pend placement and follow hgb for stability. Hemoglobin remains 14, stable 11/05/2021. Case management assisting with placement. Patient has not been ambulatory at home, and very difficult to mobilize even with Jaymie lift. Difficult placement, patient also had to be taken out of [facility] after 20 days due to insurance co-pay. Case management assisting with bed search at this time. (2) Generalized epilepsy: Plan: Continue phenytoin (3) Benign hypertension: Plan: Currently normotensive Continue metoprolol 50 mg p.o. twice daily tartrate (4) Hemiparesis of left nondominant side: Plan: Unchanged Gabapentin [employer] for spasms/pain. Patient has an allergy as hallucinations of this, but also takes low-dose 50 mg tolerating at home Plan: Code Status: DNR/DNI, discussed with patient and confirmed by FEN: Heart healthy, low sodium diet; easy to chew given facial droop DVT ppx: See above, Lovenox 40 Dispo: Med/Surg with Telemetry Admission and Anticipated Discharge Date Admission Date: November 02, 2021 Subjective Sleeping comfortably in the morning. Reports rather be on the chair floor. Frustrated by hospital stay, denies acute symptoms. Endorses cramping in his legs, pain between analgesic doses while in the hospital although sitting comfortably between visits without narcotic use at home. No chest pain/chest pressure. Afebrile. Aware pending placement options. Discussed with case management Review of Systems Review of Systems: All systems reviewed & are unremarkable except as noted in Subjective Physical Exam Physical Exam: General: Sleeping on entry, awakens easily. A&Ox3. NAD. Cooperative. HEENT: Atraumatic, normocephalic. Pulm: CTAB A&P. -wheezes, -rales, -rhonchi. Symmetrical chest rise. No increase in work of breathing. No respiratory distress. Cardiac: RRR, -mrg. Radial pulses intact and symmetrical. Abdominal: Nontender, nondistended, soft. BS present. Extremities: Left hemiparesis, left leg contracted. No hematoma/bruising appreciated. Results & Data Results & Data ([facility]) Vital Signs (Past 12 Hours) Vital Signs Temp Pulse Resp BP Pulse Ox 11/05/21 11:09 36.7 C 69 20 103/69 93 11/05/21 07:25 36.5 C 76 19 126/82 92 11/05/21 03:53 36.9 C 85 18 111/76 90 PG Care Time/CCT Total # of Minutes Spent Total Time Spent with Patient: Total time spent is greater than 50% in coordination of care (as documented) at patient's floor/unit and/or counseling patient: Coding Level of Care Code 90807 Subseq Hosp Care Lvl 1 Diagnoses DVT (deep venous thrombosis) I82.402 Affected thrombotic vein of extremity: unspecified vein of extremity Chronicity: acute DVT location: lower extremity Laterality: left Generalized epilepsy G40.309 Benign hypertension I10 Hemiparesis of left nondominant side G81.94 Hemiparesis etiology: unspecified (1) DVT (deep venous thrombosis) Affected thrombotic vein of extremity: unspecified vein of extremity Chronicity: acute DVT location: lower extremity Laterality: left Qualified Code(s): I82.402 - Acute embolism and thrombosis of unspecified deep veins of left lower extremity (2) Hemiparesis of left nondominant side Hemiparesis etiology: unspecified Qualified Code(s): G81.94 - Hemiplegia, unspecified affecting left nondominant side
[2021-11-05] MEDS: ATORVASTATIN 40 MG TAB PO SCH (21:16)
[2021-11-06] MEDS: traMADol HCL 50 MG TABLET PO PRN ×4 (03:20→19:54)
[2021-11-06 07:39] LABS: Basophils # (auto) 0.01 K/uL (0-0.2); Basophils % (auto) 0.2 %; Eosinophils # (auto) 0.14 K/uL (0-0.5); Eosinophils % (auto) 2.6 %; Hematocrit (blood only) 41.8 % (42-52); Hemoglobin 14.2 g/dL (14.0-18.0); Immature Granulocytes # (auto) 0.01 K/uL (0.00-0.02); Immature Granulocytes % (auto) 0.2 %; Lymphocytes % (auto) 16.5 %; Mean Corpuscular Hemoglobin 32.9 pg (25-34); Mean Corpuscular Volume 96.8 fL (80-100); Monocytes # (auto) 0.47 K/uL (0.11-0.59); Monocytes % (auto) 8.6 %; Neutrophils # (auto) 3.93 K/uL (1.4-6.5); Neutrophils % (auto) 71.9 %; Platelet Count 224 K/uL (130-400); RDW Standard Deviation 45.8 fL (36.4-46.3); Red Blood Count 4.32 M/uL (4.7-6.1); White Blood Count 5.46 K/uL (4.8-10.8)
[2021-11-06] MEDS: ENOXAPARIN INJ 40 MG/0.4 ML SYR SQ SCH (07:47)
[2021-11-06] MEDS: METOPROLOL TARTRATE 50 MG TAB PO SCH ×3 (07:47→20:18)
[2021-11-06] MEDS: GABAPENTIN 250 MG/5 ML 470 ML BTL PO SCH (07:47)
[2021-11-06] MEDS: lamoTRIgine 100 MG TAB PO SCH ×3 (07:47→20:18)
[2021-11-06] MEDS: PHENYTOIN SODIUM ER 100 MG CAP PO SCH ×4 (07:48→20:18)
[2021-11-06] MEDS: ESCITALOPRAM OXALATE 10 MG TAB PO SCH (07:48)
[2021-11-06] MEDS: lamoTRIgine 25 MG TAB PO SCH ×3 (07:48→20:17)
[2021-11-06 07:57] LABS: BUN Creatinine Ratio 18.2 (10-20); Calcium 9.1 mg/dl (8.5-10.1); Creatinine Clr Calc Pharmacy 131.3 ml/min; Est GFR (African American) 118.4 ml/min; Est GFR (Non-African American) 102.2 ml/min; Potassium 3.7 mmol/L (3.5-5.1)
--- NOTE | 2021-11-06 17:18 | Hospitalist Progress Note ---
Date of Service November 06, 2021 Assessment & Plan (1) Pulmonary emboli: Plan: In light of severely impaired mobility, the known/recurrent LLE DVT, and low- normal O2 sats (90-94%) I elected to perform CTA chest today to r/o PE. CTA study indeed shows right-sided PEs. I am concerned that he will throw additional PEs if we do not adjust his anticoagulation; he is currently on lovenox 40mg once daily. Plan - -stop lovenox SC -start heparin infusion, standard dosing - no bolus -daily CBC, PTT, etc -VERY CLOSE observation for recurrent retroperitoneal bleeding (had such in 09/2021 when INR was 7) and prior intra-cerebral hemorrhage in 2018 -at this time IVC filter was deferred by vascular surgery unless he has additional bleeding complications (2) DVT (deep venous thrombosis): Plan: LLE - recurrent. Acute DVT is in the distal common femoral vein, superficial femoral vein, and popliteal vein. Coumadin was held since September due to retroperitoneal bleeding during that admission. Although heme/onc recommended against full strength anticoagulation recently (due to prior bleeding issues) I do feel that the presence of PEs changes our approach. Will cautiously change lovenox SC to heparin infusion standard dosing. Daily CBC. PTTs per protocol. (3) Generalized epilepsy: Plan: Continue phenytoin Continue lamictal (4) Benign hypertension: Plan: Continue metoprolol 50 mg p.o. twice daily (5) Hemiparesis of left nondominant side: Plan: 2nd to GBM with prior resection, etc (6) Hyponatremia: Plan: present since early September 2021. SIADH? other? start with serum osm, urine osm, urine Na. patient appears euvolemic on examination. Plan: severely dry skin - eucerin cream BID to affected areas Danielle updated extensively by phone this evening Admission and Anticipated Discharge Date Admission Date: November 02, 2021 Subjective no issues overnight patient was lying in bed comfortably during the visit denied any dyspnea denied any chest pain denied any abd pain he does c/o dry, itchy skin on his left foot & leg he is bored of the hospital Review of Systems Review of Systems: gen - no fevers or chills; no anorexia cv - no orthopnea pulm - no cough GI - no N/V Physical Exam Physical Exam: gen - NAD, awake, alert skin - severely dry skin b/l legs and feet neck - no JVD heart - RRR, s1 s2 lungs - CTA b/l abd - soft NT neuro - left-sided hemiparesis with increased tone and noted muscle spasm/myoclonus ext - no edema, pulses 2+ b/l Results & Data Results & Data ([facility]) Vital Signs (Past 12 Hours) Vital Signs Temp Pulse Pulse Resp BP Pulse Ox 11/06/21 16:15 36.8 C 86 19 132/83 92 11/06/21 11:43 36.4 C L 95 H 19 136/85 91 11/06/21 09:00 96 H 11/06/21 08:03 36.6 C 83 19 130/89 90 Laboratory Results Laboratory Results - last 24 hr 11/06/21 11/06/21 07:13 07:13 WBC 5.46 RBC 4.32 L Hgb 14.2 Hct 41.8 L MCV 96.8 MCH 32.9 MCHC 34.0 RDW Std Deviation 45.8 RDW Coeff of Paul 13.0 Plt Count 224 MPV 9.0 Immature Gran % (Auto) 0.2 Neut % (Auto) 71.9 Lymph % (Auto) 16.5 [place] % (Auto) 8.6 Eos % (Auto) 2.6 Baso % (Auto) 0.2 Neut # (Auto) 3.93 Lymph # (Auto) 0.90 L [place] # (Auto) 0.47 Eos # (Auto) 0.14 Baso # (Auto) 0.01 Immature Gran # (Auto) 0.01 Sodium 133 L Potassium 3.7 Chloride 97 L Carbon Dioxide 26 Anion Gap 10 BUN 12 Creatinine 0.66 Est Cr Clr Drug Dosing 131.3 Est GFR ( Amer) 118.4 Est GFR (Non-Af Amer) 102.2 BUN/Creatinine Ratio 18.2 Glucose 88 Calcium 9.1 Diagnostic Findings Chest CTA 11/06/21 17:16 CT ANGIOGRAM OF THE CHEST CLINICAL HISTORY: Hypoxia. Deep venous thrombosis. COMPARISON STUDY: Chest x-ray dated 11/02/2021. Chest CT dated 07/27/2020. TECHNIQUE: Following the IV administration of 110 cc of Optiray 320, CT angiogram of the chest was performed from the upper abdomen to the thoracic inlet utilizing the pulmonary embolus protocol. Images are reviewed in the axial, sagittal, and coronal planes. 3-D MIPS images are created and assessed. IV contrast was administered without complication. A dose lowering technique was utilized adhering to the principles of ALARA. The examination is degraded by motion artifact. CT DOSE: 785.61 mGy.cm FINDINGS: Thyroid: Imaged portions of the thyroid gland are normal in size and attenuation. Thoracic aorta: The thoracic aorta is normal in caliber and demonstrates standard 3-vessel arch anatomy. No dissection is seen. Pulmonary vasculature: The pulmonary trunk is normal in caliber. There is pulmonary embolus within the right lower lobe pulmonary artery. This extends peripherally into segmental and subsegmental branches. No additional pulmonary emboli are clearly identified. The left lower lobe branches are not well evaluated due to significant motion artifact. Heart: The heart is mildly enlarged and without pericardial effusion. There are coronary artery calcifications. Lungs and pleural spaces: Evaluation of the lung parenchyma is degraded by motion artifact. There is no airspace consolidation or pleural effusion. There is elevation of the right hemidiaphragm and bibasilar atelectasis. The trachea and central airways appear clear. Mediastinum: There is no mediastinal lymphadenopathy. Mago: Clear. Axillae: There is no axillary lymphadenopathy. Upper abdomen: Partially visualized upper abdominal viscera is within normal limits. Skeletal structures: The skeletal structures are osteopenic. Degenerative change and kyphoscoliosis are noted in the thoracic spine. No lytic or blastic bony lesions are seen. There are subacute appearing left anterolateral rib fractures. Soft tissues: Gynecomastia is noted. IMPRESSION: 1. Right lower lobe pulmonary emboli as above. 2. There is no airspace consolidation or pleural effusion. 3. Cardiomegaly. 4. Additional findings as above. ACT 112: Negative or not required by law. Electronically signed by: John De La Garza M.D. 11/06/2021 6:50 PM PG Care Time/CCT Total # of Minutes Spent Total Time Spent with Patient: Total time spent is greater than 50% in coordination of care (as documented) at patient's floor/unit and/or counseling patient: Coding Level of Care Code 50406 Subseq Hosp Care Lvl 3 Diagnoses DVT (deep venous thrombosis) I82.402 Affected thrombotic vein of extremity: unspecified vein of extremity Chronicity: acute DVT location: lower extremity Laterality: left Generalized epilepsy G40.309 Benign hypertension I10 Hemiparesis of left nondominant side G81.94 Hemiparesis etiology: unspecified Pulmonary emboli I26.99 Hyponatremia E87.1 (1) DVT (deep venous thrombosis) Affected thrombotic vein of extremity: unspecified vein of extremity Chronicity: acute DVT location: lower extremity Laterality: left Qualified Code(s): I82.402 - Acute embolism and thrombosis of unspecified deep veins of left lower extremity (2) Hemiparesis of left nondominant side Hemiparesis etiology: unspecified Qualified Code(s): G81.94 - Hemiplegia, unspecified affecting left nondominant side
[2021-11-06] MEDS ORDERED: OPTIRAY 320 125ml IV ONE (18:29)
--- NOTE | 2021-11-06 18:51 | CT Scan Report ---
CT ANGIOGRAM OF THE CHEST CLINICAL HISTORY: Hypoxia. Deep venous thrombosis. COMPARISON STUDY: Chest x-ray dated 11/02/2021. Chest CT dated 07/27/2020. TECHNIQUE: Following the IV administration of 110 cc of Optiray 320, CT angiogram of the chest was pe rformed from the upper abdomen to the thoracic inlet utilizing the pulmonary embolus protocol. Images are reviewed in the axial, sagittal, and coronal planes. 3-D MIPS images are created and assessed. I V contrast was administered without complication. A dose lowering technique was utilized adhering to the principles of ALARA. The examination is degraded by motion artifact. CT DOSE: 785.61 mGy.cm FINDINGS: Thyroid: Imaged portions of the thyroid gland are normal in size and attenuation. Thoracic aorta: The thoracic aorta is normal in caliber and demonstrates standard 3-vessel arch anato my. No dissection is seen. Pulmonary vasculature: The pulmonary trunk is normal in caliber. There is pulmonary embolus within th e right lower lobe pulmonary artery. This extends peripherally into segmental and subsegmental branch es. No additional pulmonary emboli are clearly identified. The left lower lobe branches are not well evaluated due to significant motion artifact. Heart: The heart is mildly enlarged and without pericardial effusion. There are coronary artery calci fications. Lungs and pleural spaces: Evaluation of the lung parenchyma is degraded by motion artifact. There is no airspace consolidation or pleural effusion. There is elevation of the right hemidiaphragm and biba silar atelectasis. The trachea and central airways appear clear. Mediastinum: There is no mediastinal lymphadenopathy. Mago: Clear. Axillae: There is no axillary lymphadenopathy. Upper abdomen: Partially visualized upper abdominal viscera is within normal limits. Skeletal structures: The skeletal structures are osteopenic. Degenerative change and kyphoscoliosis a re noted in the thoracic spine. No lytic or blastic bony lesions are seen. There are subacute appeari ng left anterolateral rib fractures. Soft tissues: Gynecomastia is noted. IMPRESSION: 1. Right lower lobe pulmonary emboli as above. 2. There is no airspace consolidation or pleural effusion. 3. Cardiomegaly. 4. Additional findings as above. ACT 112: Negative or not required by law. Electronically signed by: John De La Garza M.D. 11/06/2021 6:50 PM
[2021-11-06] MEDS ORDERED: Heparin IV Adult Wt-Based Standard *NO* Bolus Protocol IV SCH (19:19)
[2021-11-06] MEDS: ATORVASTATIN 40 MG TAB PO SCH ×2 (19:53→20:18)
[2021-11-06] MEDS: EUCERIN CR 120 GM JAR EXT SCH (19:53)
[2021-11-06] MEDS ORDERED: ENOXAPARIN INJ 40 MG/0.4 ML SYR SQ SCH (21:00)
[2021-11-06] MEDS: HEPARIN SODIUM/DEXTROSE 25,000 UNITS/500 ML BAG IV SCH (21:24)
[2021-11-06 21:29] LABS: Basophils # (auto) 0.02 K/uL (0-0.2); Basophils % (auto) 0.4 %; Eosinophils # (auto) 0.21 K/uL (0-0.5); Eosinophils % (auto) 3.9 %; Hematocrit (blood only) 42.5 % (42-52); Hemoglobin 14.5 g/dL (14.0-18.0); Immature Granulocytes # (auto) 0.01 K/uL (0.00-0.02); Immature Granulocytes % (auto) 0.2 %; Lymphocytes # (auto) 1.25 K/uL (1.2-3.4); Lymphocytes % (auto) 23.2 %; Mean Corpuscular Hemoglobin 32.9 pg (25-34); Mean Corpuscular Volume 96.4 fL (80-100); Monocytes # (auto) 0.57 K/uL (0.11-0.59); Monocytes % (auto) 10.6 %; Neutrophils # (auto) 3.33 K/uL (1.4-6.5); Neutrophils % (auto) 61.7 %; Platelet Count 230 K/uL (130-400); RDW Standard Deviation 45.6 fL (36.4-46.3); Red Blood Count 4.41 M/uL (4.7-6.1); White Blood Count 5.39 K/uL (4.8-10.8)
[2021-11-06 21:32] LABS: Mean Corpuscular Hgb Conc 34.1 g/dL (32-36)
[2021-11-06 21:41] LABS: INR 1.1 (0.9-1.1); Partial Thromboplastin Ratio 0.9; Partial Thromboplastin Time 23.6 Seconds (21.0-31.0); Prothrombin Time 11.2 Seconds (9.0-12.0)
[2021-11-07] MEDS: traMADol HCL 50 MG TABLET PO PRN ×3 (03:33→21:06)
[2021-11-07 03:39] LABS: Basophils # (auto) 0.01 K/uL (0-0.2); Basophils % (auto) 0.2 %; Eosinophils # (auto) 0.17 K/uL (0-0.5); Eosinophils % (auto) 3.2 %; Hematocrit (blood only) 41.2 % (42-52); Hemoglobin 14.2 g/dL (14.0-18.0); Immature Granulocytes # (auto) 0.01 K/uL (0.00-0.02); Immature Granulocytes % (auto) 0.2 %; Lymphocytes # (auto) 1.13 K/uL (1.2-3.4); Lymphocytes % (auto) 21.2 %; Mean Corpuscular Hemoglobin 33.6 pg (25-34); Mean Corpuscular Hgb Conc 34.5 g/dL (32-36); Mean Corpuscular Volume 97.4 fL (80-100); Mean Platelet Volume 8.9 fL (7.4-10.4); Monocytes # (auto) 0.46 K/uL (0.11-0.59); Monocytes % (auto) 8.6 %; Neutrophils # (auto) 3.56 K/uL (1.4-6.5); Neutrophils % (auto) 66.6 %; Platelet Count 227 K/uL (130-400); RDW Standard Deviation 46.3 fL (36.4-46.3); Red Blood Count 4.23 M/uL (4.7-6.1); White Blood Count 5.34 K/uL (4.8-10.8)
[2021-11-07 03:58] LABS: BUN Creatinine Ratio 13.6 (10-20); Calcium 9.1 mg/dl (8.5-10.1); Est GFR (African American) 108.9 ml/min; Est GFR (Non-African American) 93.9 ml/min; Potassium 3.7 mmol/L (3.5-5.1)
[2021-11-07 04:02] LABS: Partial Thromboplastin Ratio 3.8
[2021-11-07 04:07] LABS: Partial Thromboplastin Time 101.1 Seconds (21.0-31.0)
[2021-11-07] MEDS: lamoTRIgine 25 MG TAB PO SCH ×2 (08:49→21:06)
[2021-11-07] MEDS: lamoTRIgine 100 MG TAB PO SCH ×2 (08:49→21:06)
[2021-11-07] MEDS: PHENYTOIN SODIUM ER 100 MG CAP PO SCH ×3 (08:49→21:06)
[2021-11-07] MEDS: METOPROLOL TARTRATE 50 MG TAB PO SCH ×2 (08:49→21:06)
[2021-11-07] MEDS: ESCITALOPRAM OXALATE 10 MG TAB PO SCH (08:49)
[2021-11-07] MEDS: EUCERIN CR 120 GM JAR EXT SCH ×2 (08:50→21:08)
[2021-11-07] MEDS: GABAPENTIN 250 MG/5 ML 470 ML BTL PO SCH (09:12)
[2021-11-07 11:47] LABS: Partial Thromboplastin Ratio 4.4
[2021-11-07 11:49] LABS: Partial Thromboplastin Time 116.2 Seconds (21.0-31.0)
[2021-11-07] MEDS: DICLOFENAC SOD 1% GEL 100 GM TUBE EXT SCH ×2 (16:33→21:06)
[2021-11-07 17:00] LABS: Appearance Urine Clear (Clear); Bacteria Urine Automated Negative (Negative); Bilirubin Urine Negative (Negative); Blood Urine Negative (Negative); Color Urine Dark Yellow; Glucose Urine UA Negative (Negative); Ketones Urine Trace (Negative); Leukocyte Esterase Urine Negative (Negative); Nitrite Urine Negative (Negative); Protein Urine Trace (Negative); RBC Urine Automated 0-4 /hpf (0-4); Specific Gravity Urine 1.034 (1.000-1.030); Urobilinogen Urine Negative (Negative)
[2021-11-07] MEDS: HEPARIN SODIUM/DEXTROSE 25,000 UNITS/500 ML BAG IV SCH (17:26)
--- NOTE | 2021-11-07 18:33 | Hospitalist Progress Note ---
Date of Service November 07, 2021 Assessment & Plan (1) Acute encephalopathy: Plan: metabolic from low Na? developing UTI? central - related to prior GBM/encephalomalacia? due to high dilantin levels (need to check his level)? other? check u/a check ammonia level check phenytoin level repeat BMP am (2) Pulmonary emboli: Plan: In light of severely impaired mobility, the known/recurrent LLE DVT, and low- normal O2 sats (90-94%) I elected to perform CTA chest to r/o PE. CTA study indeed showed right-sided PEs. I am concerned that he will throw additional PEs if we do not give full-strength anticoagulation. Thus, heparin drip initiated yesterday; lovenox 40mg SC daily stopped. Thus far tolerating the drip without overt bleeding. H/H in am. VERY CLOSE observation for recurrent retroperitoneal bleeding (had such in 09/2021 when INR was 7) and prior intra-cerebral hemorrhage in 2018. At this time IVC filter was deferred by vascular surgery unless he has additional bleeding complications. (3) DVT (deep venous thrombosis): Plan: LLE - recurrent. Acute DVT is in the distal common femoral vein, superficial femoral vein, and popliteal vein. Coumadin was held since September due to retroperitoneal bleeding during that admission. Although heme/onc recommended against full strength anticoagulation recently (due to prior bleeding issues) I do feel that the presence of PEs changes our approach. Will cautiously cont heparin infusion standard dosing. Daily CBC. PTTs per protocol. (4) Generalized epilepsy: Plan: Continue phenytoin Continue lamictal Check phenytoin level in am (5) Benign hypertension: Plan: Continue metoprolol 50 mg p.o. 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 serum osm, urine osm, urine Na - c/w SIADH. patient appears euvolemic on examination. resume bumex. Plan: severely dry skin - eucerin cream BID to affected areas left knee pain - start voltaren gel 4gm QID; likely due to chronic contracture Danielle extensively updated at bedside today Admission and Anticipated Discharge Date Admission Date: November 02, 2021 Subjective at bedside during the visit she has noted he is more confused today than previous patient - when asked specific questions - unable to give much history/ROS he continues to eat well denies headache, cp, dyspnea, cough, dysuria per staff no bleeding from any location his only complaint is that of left knee pain - per this is chronic reports he is being weaned off gabapentin Review of Systems Review of Systems: Unobtainable due to cognitive status Physical Exam Physical Exam: gen - NAD, confused skin - no rash or cellulitis neck - no JVD heart - RRR, s1 s2 lungs - CTA b/l abd - soft NT neuro - left-sided hemiparesis with increased tone and noted muscle spasm/myoclonus ext - no edema, pulses 2+ b/l musculo - left knee - no synovitis/warmth/tenderness to palpation Results & Data Results & Data ([facility]) Vital Signs (Past 12 Hours) Vital Signs Temp Pulse Pulse Resp BP Pulse Ox Pulse Ox 11/07/21 18:00 95 11/07/21 14:50 79 11/07/21 14:45 37.1 C 81 20 97/71 L 92 11/07/21 11:21 36.8 C 83 19 101/64 91 11/07/21 07:30 36.6 C 85 20 120/83 95 11/07/21 07:17 82 Laboratory Results Laboratory Results - last 24 hr 11/06/21 11/06/21 11/07/21 21:23 21:23 02:34 WBC 5.39 RBC 4.41 L Hgb 14.5 Hct 42.5 MCV 96.4 MCH 32.9 MCHC 34.1 RDW Std Deviation 45.6 RDW Coeff of Paul 13.0 Plt Count 230 MPV 9.0 Immature Gran % (Auto) 0.2 Neut % (Auto) 61.7 Lymph % (Auto) 23.2 [place] % (Auto) 10.6 Eos % (Auto) 3.9 Baso % (Auto) 0.4 Neut # (Auto) 3.33 Lymph # (Auto) 1.25 [place] # (Auto) 0.57 Eos # (Auto) 0.21 Baso # (Auto) 0.02 Immature Gran # (Auto) 0.01 PT 11.2 INR 1.1 APTT 23.6 PTT Ratio 0.9 Sodium Potassium Chloride Carbon Dioxide Anion Gap BUN Creatinine Est Cr Clr Drug Dosing Est GFR ( Amer) Est GFR (Non-Af Amer) BUN/Creatinine Ratio Glucose Osmolality Calcium Urine Color Urine Appearance Urine pH Ur Specific [place] Urine Protein Urine Glucose (UA) Urine Ketones Urine Blood Urine Nitrite Urine Bilirubin Urine Urobilinogen Ur Leukocyte Esterase Urine WBC (Auto) Urine RBC (Auto) U Hyaline Cast (Auto) U Epithel Cells (Auto) Urine Bacteria (Auto) Urine Osmolality 676 Ur Random Sodium 11/07/21 11/07/21 11/07/21 02:34 03:31 03:31 WBC RBC Hgb Hct MCV MCH MCHC RDW Std Deviation RDW Coeff of Paul Plt Count MPV Immature Gran % (Auto) Neut % (Auto) Lymph % (Auto) [place] % (Auto) Eos % (Auto) Baso % (Auto) Neut # (Auto) Lymph # (Auto) [place] # (Auto) Eos # (Auto) Baso # (Auto) Immature Gran # (Auto) PT INR APTT PTT Ratio Sodium 134 L Potassium 3.7 Chloride 98 Carbon Dioxide 29 Anion Gap 7 BUN 11 Creatinine 0.81 Est Cr Clr Drug Dosing 107.0 Est GFR ( Amer) 108.9 Est GFR (Non-Af Amer) 93.9 BUN/Creatinine Ratio 13.6 Glucose 96 Osmolality 290 Calcium 9.1 Urine Color Urine Appearance Urine pH Ur Specific [place] Urine Protein Urine Glucose (UA) Urine Ketones Urine Blood Urine Nitrite Urine Bilirubin Urine Urobilinogen Ur Leukocyte Esterase Urine WBC (Auto) Urine RBC (Auto) U Hyaline Cast (Auto) U Epithel Cells (Auto) Urine Bacteria (Auto) Urine Osmolality Ur Random Sodium 42 11/07/21 11/07/21 11/07/21 03:31 03:31 11:10 WBC 5.34 RBC 4.23 L Hgb 14.2 Hct 41.2 L MCV 97.4 MCH 33.6 MCHC 34.5 RDW Std Deviation 46.3 RDW Coeff of Paul 13.0 Plt Count 227 MPV 8.9 Immature Gran % (Auto) 0.2 Neut % (Auto) 66.6 Lymph % (Auto) 21.2 [place] % (Auto) 8.6 Eos % (Auto) 3.2 Baso % (Auto) 0.2 Neut # (Auto) 3.56 Lymph # (Auto) 1.13 L [place] # (Auto) 0.46 Eos # (Auto) 0.17 Baso # (Auto) 0.01 Immature Gran # (Auto) 0.01 PT INR APTT 101.1 H* 116.2 H* PTT Ratio 3.8 4.4 Sodium Potassium Chloride Carbon Dioxide Anion Gap BUN Creatinine Est Cr Clr Drug Dosing Est GFR ( Amer) Est GFR (Non-Af Amer) BUN/Creatinine Ratio Glucose Osmolality Calcium Urine Color Urine Appearance Urine pH Ur Specific [place] Urine Protein Urine Glucose (UA) Urine Ketones Urine Blood Urine Nitrite Urine Bilirubin Urine Urobilinogen Ur Leukocyte Esterase Urine WBC (Auto) Urine RBC (Auto) U Hyaline Cast (Auto) U Epithel Cells (Auto) Urine Bacteria (Auto) Urine Osmolality Ur Random Sodium 11/07/21 16:30 WBC RBC Hgb Hct MCV MCH MCHC RDW Std Deviation RDW Coeff of Paul Plt Count MPV Immature Gran % (Auto) Neut % (Auto) Lymph % (Auto) [place] % (Auto) Eos % (Auto) Baso % (Auto) Neut # (Auto) Lymph # (Auto) [place] # (Auto) Eos # (Auto) Baso # (Auto) Immature Gran # (Auto) PT INR APTT PTT Ratio Sodium Potassium Chloride Carbon Dioxide Anion Gap BUN Creatinine Est Cr Clr Drug Dosing Est GFR ( Amer) Est GFR (Non-Af Amer) BUN/Creatinine Ratio Glucose Osmolality Calcium Urine Color Dark Yellow Urine Appearance Clear Urine pH 6.0 Ur Specific [place] 1.034 H Urine Protein Trace H Urine Glucose (UA) Negative Urine Ketones Trace H Urine Blood Negative Urine Nitrite Negative Urine Bilirubin Negative Urine Urobilinogen Negative Ur Leukocyte Esterase Negative Urine WBC (Auto) 1-5 Urine RBC (Auto) 0-4 U Hyaline Cast (Auto) 1-5 U Epithel Cells (Auto) 5-10 H Urine Bacteria (Auto) Negative Urine Osmolality Ur Random Sodium PG Care Time/CCT Total # of Minutes Spent Total Time Spent with Patient: Total time spent is greater than 50% in coordination of care (as documented) at patient's floor/unit and/or counseling patient: Coding Level of Care Code 85589 Subseq Hosp Care Lvl 3 Diagnoses Pulmonary emboli I26.99 DVT (deep venous thrombosis) I82.402 Affected thrombotic vein of extremity: unspecified vein of extremity Chronicity: acute DVT location: lower extremity Laterality: left Generalized epilepsy G40.309 Benign hypertension I10 Hemiparesis of left nondominant side G81.94 Hemiparesis etiology: unspecified Hyponatremia E87.1 Acute encephalopathy G93.40 (1) DVT (deep venous thrombosis) Affected thrombotic vein of extremity: unspecified vein of extremity Chronicity: acute DVT location: lower extremity Laterality: left Qualified Code(s): I82.402 - Acute embolism and thrombosis of unspecified deep veins of left lower extremity (2) Hemiparesis of left nondominant side Hemiparesis etiology: unspecified Qualified Code(s): G81.94 - Hemiplegia, unspecified affecting left nondominant side
[2021-11-07 19:18] LABS: Partial Thromboplastin Ratio 3.1
[2021-11-07] MEDS: CYANOCOBALAMIN (B-12) 500 MCG TABLET PO SCH (19:34)
[2021-11-07 19:52] LABS: Partial Thromboplastin Time 82.8 Seconds (21.0-31.0)
[2021-11-07] MEDS: ATORVASTATIN 40 MG TAB PO SCH (21:07)
[2021-11-07] MEDS: ONDANSETRON 4 MG OD TAB PO PRN (21:46)
[2021-11-08 02:40] LABS: Basophils # (auto) 0.01 K/uL (0-0.2); Basophils % (auto) 0.2 %; Eosinophils # (auto) 0.14 K/uL (0-0.5); Eosinophils % (auto) 2.7 %; Hematocrit (blood only) 39.3 % (42-52); Hemoglobin 13.4 g/dL (14.0-18.0); Immature Granulocytes # (auto) 0.01 K/uL (0.00-0.02); Immature Granulocytes % (auto) 0.2 %; Lymphocytes % (auto) 24.7 %; Mean Corpuscular Hemoglobin 32.9 pg (25-34); Mean Corpuscular Hgb Conc 34.1 g/dL (32-36); Mean Corpuscular Volume 96.6 fL (80-100); Monocytes % (auto) 7.6 %; Neutrophils % (auto) 64.6 %; Platelet Count 229 K/uL (130-400); RDW Standard Deviation 45.9 fL (36.4-46.3); Red Blood Count 4.07 M/uL (4.7-6.1); White Blood Count 5.26 K/uL (4.8-10.8)
[2021-11-08 03:01] LABS: BUN Creatinine Ratio 11.3 (10-20); Calcium 8.7 mg/dl (8.5-10.1); Creatinine Clr Calc Pharmacy 122.6 ml/min; Est GFR (African American) 114.9 ml/min; Est GFR (Non-African American) 99.2 ml/min; Potassium 3.6 mmol/L (3.5-5.1)
[2021-11-08 03:09] LABS: Partial Thromboplastin Ratio 2.1
[2021-11-08 03:12] LABS: Partial Thromboplastin Time 56.4 Seconds (21.0-31.0)
[2021-11-08] MEDS: traMADol HCL 50 MG TABLET PO PRN ×3 (05:28→14:30)
[2021-11-08] MEDS: lamoTRIgine 25 MG TAB PO SCH ×2 (08:20→20:53)
[2021-11-08] MEDS: METOPROLOL TARTRATE 50 MG TAB PO SCH ×2 (08:21→20:53)
[2021-11-08] MEDS: ESCITALOPRAM OXALATE 10 MG TAB PO SCH (08:22)
[2021-11-08] MEDS: lamoTRIgine 100 MG TAB PO SCH ×2 (08:22→20:51)
[2021-11-08] MEDS: CYANOCOBALAMIN (B-12) 500 MCG TABLET PO SCH (08:23)
[2021-11-08] MEDS: DICLOFENAC SOD 1% GEL 100 GM TUBE EXT SCH ×4 (08:23→20:52)
[2021-11-08] MEDS: EUCERIN CR 120 GM JAR EXT SCH ×2 (08:24→20:52)
[2021-11-08] MEDS: BUMETANIDE 1 MG TAB PO SCH (09:32)
[2021-11-08] MEDS: GABAPENTIN 250 MG/5 ML 470 ML BTL PO SCH (09:33)
[2021-11-08] MEDS: POTASSIUM CHLORIDE CRTAB 20 MEQ TABCR PO SCH (09:34)
--- NOTE | 2021-11-08 11:07 | Progress Notes ---
DATE OF SERVICE: 11/08/2021. CTA performed on 11/06/2021 suggestive of right lower lobe PE, for which the patient was placed on th erapeutic heparin. Since then, he has done well with no evidence to suggest bleeding. Hemoglobin an d hematocrit remained stable. ASSESSMENT AND PLAN: Agree with therapeutic anticoagulation at this point given clinical symptoms of shortness of breath, decreased oxygen saturation as well as demonstrable right lower lobe pulmonary embolism. Agree with close monitoring for signs of bleeding. Given potential interactions between d irect oral anticoagulant and his phenytoin, he would benefit from therapeutic low-molecular weight he ethan upon discharge from hospital. May consider placing him on Coumadin in the future if he has no symptoms to suggest bleeding and risk for falls is low. Hematology will continue following the patie nt while in the hospital. Please feel free to call if you have any further questions. Job ID: [id number]
[2021-11-08] MEDS: HEPARIN SODIUM/DEXTROSE 25,000 UNITS/500 ML BAG IV SCH (17:44)
--- NOTE | 2021-11-08 19:31 | Hospitalist Progress Note ---
Date of Service November 08, 2021 Assessment & Plan (1) Acute encephalopathy: Plan: could be due to meds (recent gabapentin, high dilantin levels, etc) ua wnl ammonia wnl HOLD dilantin wean gabapentin off if mental status doesn't improve - consider repeat head imaging (2) Pulmonary emboli: Plan: In light of severely impaired mobility, the known/recurrent LLE DVT, and low- normal O2 sats (90-94%) I elected to perform CTA chest to r/o PE. CTA study showed right-sided PEs. Remains on heparin drip. Thus far tolerating the drip without overt bleeding. H/H in am. VERY CLOSE observation for recurrent retroperitoneal bleeding (had such in 09/2021 when INR was 7) and prior intra-cerebral hemorrhage in 2018. At this time IVC filter was deferred by vascular surgery unless he has additional bleeding complications. Appreciate heme/onc input. (3) DVT (deep venous thrombosis): Plan: LLE - recurrent. Acute DVT is in the distal common femoral vein, superficial femoral vein, and popliteal vein. Coumadin was held since September due to retroperitoneal bleeding during that admission. Will cautiously cont heparin infusion standard dosing. Daily CBC. PTTs per protocol. (4) Generalized epilepsy: Plan: Dilantin level is HIGH today HOLD dilantin repeat level tomorrow am Continue lamictal (5) Benign hypertension: Plan: Continue metoprolol 50 mg p.o. 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 serum osm, urine osm, urine Na - c/w SIADH. patient appears euvolemic on examination. resume bumex 1mg daily. Plan: severely dry skin - eucerin cream BID to affected areas left knee pain - voltaren gel 4gm QID; likely due to chronic contracture Danielle extensively updated by phone today pt's mother updated at bedside once mental status improves consider baclofen for hypertonicity of left leg dispo - SNF placement Admission and Anticipated Discharge Date Admission Date: November 02, 2021 Subjective patient remains confused main complaint is that of left leg pain, spasm, tightness no overt bleeding from any location I did confirm with pt's by phone that he was placed on gabapentin at the recent SNF he was living in, and due to concern of sleepiness, this has been weaned off Additionally, his dilantin was increased from 200mg BID to 200mg TID due to subtherapeutic levels this also occurred at the SNF to 's knowledge he has never been on baclofen for his spasticity he was placed on zanaflex recently but this, too, was stopped due to concerns of hypersomnolence Review of Systems Review of Systems: gen - sleepy cv - no orthopnea or cp pulm - no dyspnea GI - no pain or nausea Physical Exam Physical Exam: gen - NAD, confused eyes - few beats of horizontal nystagmus skin - no rash or cellulitis neck - no JVD heart - RRR, s1 s2, no murmur lungs - CTA b/l abd - soft NT ND BS+ neuro - left-sided hemiparesis with increased tone in the left leg; left arm strength about 3-4/5; left leg strength 1/5 ext - no edema, pulses 2+ b/l Results & Data Results & Data ([facility]) Vital Signs (Past 12 Hours) Vital Signs Temp Pulse Pulse Resp BP Pulse Ox 11/08/21 15:48 74 11/08/21 15:21 36.8 C 76 20 97/67 L 94 11/08/21 11:00 36.6 C 66 20 103/70 93 11/08/21 08:44 83 Laboratory Results Dilantin level 24 PG Care Time/CCT Total # of Minutes Spent Total Time Spent with Patient: Total time spent is greater than 50% in coordination of care (as documented) at patient's floor/unit and/or counseling patient: Coding Level of Care Code 25096 Subseq Hosp Care Lvl 2 Diagnoses Acute encephalopathy G93.40 Pulmonary emboli I26.99 DVT (deep venous thrombosis) I82.402 Affected thrombotic vein of extremity: unspecified vein of extremity Chronicity: acute DVT location: lower extremity Laterality: left Generalized epilepsy G40.309 Benign hypertension I10 Hemiparesis of left nondominant side G81.94 Hemiparesis etiology: unspecified Hyponatremia E87.1 (1) DVT (deep venous thrombosis) Affected thrombotic vein of extremity: unspecified vein of extremity Chronicity: acute DVT location: lower extremity Laterality: left Qualified Code(s): I82.402 - Acute embolism and thrombosis of unspecified deep veins of left lower extremity (2) Hemiparesis of left nondominant side Hemiparesis etiology: unspecified Qualified Code(s): G81.94 - Hemiplegia, unspecified affecting left nondominant side
[2021-11-08] MEDS: ATORVASTATIN 40 MG TAB PO SCH (20:52)
[2021-11-08] MEDS: ONDANSETRON 4 MG OD TAB PO PRN (21:34)
[2021-11-09 08:36] LABS: Hematocrit (blood only) 43.3 % (42-52)
[2021-11-09] MEDS: CYANOCOBALAMIN (B-12) 500 MCG TABLET PO SCH (08:42)
[2021-11-09] MEDS: lamoTRIgine 100 MG TAB PO SCH ×2 (08:42→20:58)
[2021-11-09] MEDS: ESCITALOPRAM OXALATE 10 MG TAB PO SCH (08:42)
[2021-11-09] MEDS: METOPROLOL TARTRATE 50 MG TAB PO SCH ×2 (08:42→20:59)
[2021-11-09] MEDS: lamoTRIgine 25 MG TAB PO SCH ×2 (08:42→20:58)
[2021-11-09] MEDS: POTASSIUM CHLORIDE CRTAB 20 MEQ TABCR PO SCH (08:42)
[2021-11-09] MEDS: BUMETANIDE 1 MG TAB PO SCH (08:42)
[2021-11-09] MEDS: EUCERIN CR 120 GM JAR EXT SCH ×2 (08:43→20:57)
[2021-11-09] MEDS: DICLOFENAC SOD 1% GEL 100 GM TUBE EXT SCH ×4 (08:43→21:00)
[2021-11-09 09:06] LABS: BUN Creatinine Ratio 9.1 (10-20); Calcium 9.2 mg/dl (8.5-10.1); Creatinine Clr Calc Pharmacy 131.5 ml/min; Est GFR (African American) 118.4 ml/min; Est GFR (Non-African American) 102.2 ml/min; Potassium 3.9 mmol/L (3.5-5.1)
[2021-11-09 09:11] LABS: Partial Thromboplastin Ratio 2.5; Partial Thromboplastin Time 66.1 Seconds (21.0-31.0)
[2021-11-09] MEDS: traMADol HCL 50 MG TABLET PO PRN ×3 (10:44→21:08)
[2021-11-09] MEDS: ACETAMINOPHEN 325 MG TAB PO PRN ×2 (13:17→23:09)
--- NOTE | 2021-11-09 13:51 | Hospitalist Progress Note ---
Date of Service November 09, 2021 Assessment & Plan (1) Dilantin toxicity: Plan: Peak dilantin level 24. Dilantin held. Level today 22. Cont to hold dilantin; repeat level am. Patient had been on dilantin 200mg BID at SNF; was increased to 200mg TID. This was the likely cause of the toxicity. Suspect high dilantin levels contributing to recent lethargy, confusion, etc. (2) Acute encephalopathy: Plan: suspect toxic in nature (dilantin, gabapentin, etc) metabolic w/u negative cont supportive care (3) Pulmonary emboli: Plan: In light of severely impaired mobility, the known/recurrent LLE DVT, and low- normal O2 sats (90-94%) I elected to perform CTA chest to r/o PE this past weekend. CTA study showed right-sided PEs. Remains on heparin drip. Thus far tolerating the drip without overt bleeding. H/H stable. VERY CLOSE observation for recurrent retroperitoneal bleeding (had such in 09/2021 when INR was 7) and prior intra-cerebral hemorrhage in 2018. At this time IVC filter was deferred by vascular surgery unless he has additional bleeding complications. Appreciate heme/onc input. If he continues to remain stable on heparin drip will change to lovenox 1mg/kg BID. (4) DVT (deep venous thrombosis): Plan: LLE - recurrent. Acute DVT is in the distal common femoral vein, superficial femoral vein, and popliteal vein. Coumadin was held since September due to retroperitoneal bleeding during that admission. Will cautiously cont heparin infusion standard dosing. Daily CBC. PTTs per protocol. (5) Generalized epilepsy: Plan: Dilantin level is HIGH cont to HOLD dilantin repeat level tomorrow am Continue lamictal (6) Benign hypertension: Plan: Continue metoprolol 50 mg p.o. twice daily (7) Hemiparesis of left nondominant side: Plan: 2nd to GBM with prior resection and resulting encephalomalacia (8) Hyponatremia: Plan: present since early September 2021. serum osm, urine osm, urine Na - c/w SIADH. patient appears euvolemic on examination. resume bumex 1mg daily. Na is improved today to 135 today. Plan: severely dry skin - eucerin cream BID to affected areas left knee pain - voltaren gel 4gm QID; likely due to chronic contracture Danielle extensively updated by phone yesterday pt's mother updated at bedside yesterday once mental status improves consider baclofen for hypertonicity of left leg - this is an ongoing complaint for him dispo - SNF placement Admission and Anticipated Discharge Date Admission Date: November 02, 2021 Subjective pt c/o left leg pain and spasm otherwise no new complaints when I first entered his room he said "where am I?" I reminded him he was still in the hospital per nursing flowsheets he is eating well Review of Systems Review of Systems: gen - weak, fatigue cv - no orthopnea pulm - no cough or dyspnea GI - no abdominal pain or nausea Physical Exam Physical Exam: gen - NAD, confused skin - no rash or cellulitis neck - no JVD heart - RRR, s1 s2, no murmur lungs - CTA b/l abd - soft NT ND BS+ neuro - left-sided hemiparesis with increased tone in the left leg; left arm strength about 3-4/5; left leg strength 1/5 (unchanged) ext - no edema, pulses 2+ b/l psych - oriented to person only Results & Data Results & Data ([facility]) Vital Signs (Past 12 Hours) Vital Signs Temp Pulse Pulse Resp BP Pulse Ox 11/09/21 10:42 36.5 C 71 20 110/76 93 11/09/21 07:25 74 11/09/21 06:21 36.4 C L 72 18 108/75 93 11/09/21 03:00 36.6 C 75 18 111/80 90 Laboratory Results Laboratory Results - last 24 hr 11/09/21 11/09/21 11/09/21 08:03 08:03 08:03 Hgb 15.0 Hct 43.3 APTT 66.1 H* PTT Ratio 2.5 Sodium 135 L Potassium 3.9 Chloride 99 Carbon Dioxide 30 Anion Gap 6 BUN 6 Creatinine 0.66 Est Cr Clr Drug Dosing 131.5 Est GFR ( Amer) 118.4 Est GFR (Non-Af Amer) 102.2 BUN/Creatinine Ratio 9.1 L Glucose 102 H Calcium 9.2 Phenytoin 11/09/21 11/09/21 08:03 12:55 Hgb Hct APTT PTT Ratio Sodium Potassium Chloride Carbon Dioxide Anion Gap BUN Creatinine Est Cr Clr Drug Dosing Est GFR ( Amer) Est GFR (Non-Af Amer) BUN/Creatinine Ratio Glucose Calcium Phenytoin Cancelled Pending PG Care Time/CCT Total # of Minutes Spent Total Time Spent with Patient: Total time spent is greater than 50% in coordination of care (as documented) at patient's floor/unit and/or counseling patient: Coding Level of Care Code 34678 Subseq Hosp Care Lvl 2 Diagnoses Acute encephalopathy G93.40 Pulmonary emboli I26.99 DVT (deep venous thrombosis) I82.402 Affected thrombotic vein of extremity: unspecified vein of extremity Chronicity: acute DVT location: lower extremity Laterality: left Generalized epilepsy G40.309 Benign hypertension I10 Hemiparesis of left nondominant side G81.94 Hemiparesis etiology: unspecified Hyponatremia E87.1 Dilantin toxicity T42.0X1A (1) DVT (deep venous thrombosis) Affected thrombotic vein of extremity: unspecified vein of extremity Chronicity: acute DVT location: lower extremity Laterality: left Qualified Code(s): I82.402 - Acute embolism and thrombosis of unspecified deep veins of left lower extremity (2) Hemiparesis of left nondominant side Hemiparesis etiology: unspecified Qualified Code(s): G81.94 - Hemiplegia, unspecified affecting left nondominant side
[2021-11-09] MEDS: HEPARIN SODIUM/DEXTROSE 25,000 UNITS/500 ML BAG IV SCH (17:26)
[2021-11-09] MEDS: ATORVASTATIN 40 MG TAB PO SCH (21:00)
[2021-11-10] MEDS: traMADol HCL 50 MG TABLET PO PRN ×5 (01:58→20:03)
[2021-11-10] MEDS: ACETAMINOPHEN 325 MG TAB PO PRN (03:42)
[2021-11-10 08:17] LABS: Basophils # (auto) 0.01 K/uL (0-0.2); Basophils % (auto) 0.2 %; Eosinophils # (auto) 0.22 K/uL (0-0.5); Eosinophils % (auto) 4.8 %; Hematocrit (blood only) 40.4 % (42-52); Hemoglobin 14.2 g/dL (14.0-18.0); Lymphocytes % (auto) 21.9 %; Mean Corpuscular Hemoglobin 33.6 pg (25-34); Mean Corpuscular Hgb Conc 35.1 g/dL (32-36); Mean Corpuscular Volume 95.5 fL (80-100); Mean Platelet Volume 9.1 fL (7.4-10.4); Monocytes # (auto) 0.48 K/uL (0.11-0.59); Monocytes % (auto) 10.5 %; Neutrophils # (auto) 2.86 K/uL (1.4-6.5); Neutrophils % (auto) 62.6 %; Platelet Count 232 K/uL (130-400); RDW Coefficient of Variation 13.2 % (11.5-14.5); RDW Standard Deviation 46.3 fL (36.4-46.3); Red Blood Count 4.23 M/uL (4.7-6.1); White Blood Count 4.57 K/uL (4.8-10.8)
[2021-11-10] MEDS: ESCITALOPRAM OXALATE 10 MG TAB PO SCH (08:41)
[2021-11-10] MEDS: POTASSIUM CHLORIDE CRTAB 20 MEQ TABCR PO SCH (08:41)
[2021-11-10] MEDS: BUMETANIDE 1 MG TAB PO SCH (08:41)
[2021-11-10] MEDS: DICLOFENAC SOD 1% GEL 100 GM TUBE EXT SCH ×4 (08:41→21:14)
[2021-11-10] MEDS: CYANOCOBALAMIN (B-12) 500 MCG TABLET PO SCH (08:41)
[2021-11-10] MEDS: lamoTRIgine 25 MG TAB PO SCH ×2 (08:41→21:15)
[2021-11-10] MEDS: METOPROLOL TARTRATE 50 MG TAB PO SCH ×2 (08:41→21:15)
[2021-11-10] MEDS: EUCERIN CR 120 GM JAR EXT SCH ×2 (08:42→21:16)
[2021-11-10] MEDS: lamoTRIgine 100 MG TAB PO SCH ×2 (08:42→21:15)
[2021-11-10 08:46] LABS: Partial Thromboplastin Ratio 3.5
[2021-11-10 08:50] LABS: Partial Thromboplastin Time 92.8 Seconds (21.0-31.0)
[2021-11-10 17:16] LABS: Partial Thromboplastin Ratio 2.2
[2021-11-10 17:24] LABS: Partial Thromboplastin Time 58.9 Seconds (21.0-31.0)
--- NOTE | 2021-11-10 19:40 | Hospitalist Progress Note ---
Date of Service November 10, 2021 Assessment & Plan (1) Dilantin toxicity: Plan: Peak dilantin level 24. Dilantin held. Level today now 18. Cont to hold dilantin; repeat level am. Likely can resume dilantin tomorrow. Would dose as follows - 100mg am, 100mg afternoon, 200mg HS (had been 200mg TID). Suspect high dilantin levels contributing to recent lethargy, confusion, etc. (2) Acute encephalopathy: Plan: suspect toxic in nature (dilantin, gabapentin, etc) metabolic w/u negative cont supportive care this is overall improved (3) Pulmonary emboli: Plan: In light of severely impaired mobility, the known/recurrent LLE DVT, and low- normal O2 sats (90-94%) I elected to perform CTA chest to r/o PE this past weekend. CTA study showed right-sided PEs. Remains on heparin drip. Thus far tolerating the drip without overt bleeding. H/H stable. VERY CLOSE observation for recurrent retroperitoneal bleeding (had such in 09/19 when INR was 7) and prior intra-cerebral hemorrhage in 2017. At this time IVC filter was deferred by vascular surgery unless he has additional bleeding complications. Appreciate heme/onc input. If he continues to remain stable on heparin drip will change to lovenox 1mg/kg BID, perhaps next 2 days. (4) DVT (deep venous thrombosis): Plan: LLE - recurrent. Acute DVT is in the distal common femoral vein, superficial femoral vein, and popliteal vein. Coumadin was held since September due to retroperitoneal bleeding during that admission. Will cautiously cont heparin infusion standard dosing. Daily CBC. PTTs per protocol. (5) Generalized epilepsy: Plan: Dilantin level is HIGH cont to HOLD dilantin; see #1 above repeat level tomorrow am Continue lamictal (6) Benign hypertension: Plan: Continue metoprolol 50 mg p.o. twice daily (7) Hemiparesis of left nondominant side: Plan: 2nd to GBM with prior resection and resulting encephalomalacia (8) Hyponatremia: Plan: present since early September 2021. serum osm, urine osm, urine Na - c/w SIADH. patient appears euvolemic on examination. resume bumex 1mg daily. Na is improved -- repeat BMP in am for stability. Plan: severely dry skin - eucerin cream BID to affected areas left knee pain - voltaren gel 4gm QID; likely due to chronic contracture Danielle extensively updated by phone earlier this week; left message for her on her voicemail tonight for his chronic contracture and hypertonicity trial of low-dose baclofen 5mg BID starting tomorrow as this is his most consistent complaint day to day dispo - SNF placement Admission and Anticipated Discharge Date Admission Date: November 02, 2021 Subjective awake, alert today c/o left thigh/left knee discomfort reports that he & his 's anniversary is today denies any new complaints tele overnight wnl eating well per nursing flow sheets no seizure activity by report Review of Systems Review of Systems: gen - no fevers cv - no cp, no orthopnea pulm - no cough GI - no abd pain; moving his bowels Physical Exam Physical Exam: gen - NAD, awake, alert, mild confusion only (improved from prior) heart - RRR, s1 s2, no murmur lungs - CTA b/l abd - soft NT ND BS+ neuro - left-sided hemiparesis with increased tone in the left leg; left arm strength about 3-4/5; left leg strength 1/5 (unchanged) ext - no edema, pulses 2+ b/l psych - oriented to person and place musculo - left knee - no effusion, no warmth, no tenderness to palpation Results & Data Results & Data ([facility]) Vital Signs (Past 12 Hours) Vital Signs Temp Pulse Pulse Resp BP Pulse Ox 11/10/21 16:01 36.5 C 69 18 115/80 93 11/10/21 15:01 68 11/10/21 11:28 36.7 C 65 19 110/76 94 Laboratory Results Laboratory Results - last 24 hr 11/10/21 11/10/21 11/10/21 07:58 07:58 07:58 WBC 4.57 L RBC 4.23 L Hgb 14.2 Hct 40.4 L MCV 95.5 MCH 33.6 MCHC 35.1 RDW Std Deviation 46.3 RDW Coeff of Paul 13.2 Plt Count 232 MPV 9.1 Immature Gran % (Auto) 0.0 Neut % (Auto) 62.6 Lymph % (Auto) 21.9 [place] % (Auto) 10.5 Eos % (Auto) 4.8 Baso % (Auto) 0.2 Neut # (Auto) 2.86 Lymph # (Auto) 1.00 L [place] # (Auto) 0.48 Eos # (Auto) 0.22 Baso # (Auto) 0.01 Immature Gran # (Auto) 0.00 APTT 92.8 H* PTT Ratio 3.5 Phenytoin 18.0 11/10/21 16:37 WBC RBC Hgb Hct MCV MCH MCHC RDW Std Deviation RDW Coeff of Paul Plt Count MPV Immature Gran % (Auto) Neut % (Auto) Lymph % (Auto) [place] % (Auto) Eos % (Auto) Baso % (Auto) Neut # (Auto) Lymph # (Auto) [place] # (Auto) Eos # (Auto) Baso # (Auto) Immature Gran # (Auto) APTT 58.9 H* PTT Ratio 2.2 Phenytoin PG Care Time/CCT Total # of Minutes Spent Total Time Spent with Patient: Total time spent is greater than 50% in coordination of care (as documented) at patient's floor/unit and/or counseling patient: Coding Level of Care Code 63368 Subseq Hosp Care Lvl 2 Diagnoses Dilantin toxicity T42.0X1A Acute encephalopathy G93.40 Pulmonary emboli I26.99 DVT (deep venous thrombosis) I82.402 Affected thrombotic vein of extremity: unspecified vein of extremity Chronicity: acute DVT location: lower extremity Laterality: left Generalized epilepsy G40.309 Benign hypertension I10 Hemiparesis of left nondominant side G81.94 Hemiparesis etiology: unspecified Hyponatremia E87.1 (1) DVT (deep venous thrombosis) Affected thrombotic vein of extremity: unspecified vein of extremity Chronicity: acute DVT location: lower extremity Laterality: left Qualified Code(s): I82.402 - Acute embolism and thrombosis of unspecified deep veins of left lower extremity (2) Hemiparesis of left nondominant side Hemiparesis etiology: unspecified Qualified Code(s): G81.94 - Hemiplegia, unspecified affecting left nondominant side
[2021-11-10] MEDS ORDERED: MoRPHine SULFATE 2 MG/ML CARP IV STA (20:07)
[2021-11-10] MEDS: ATORVASTATIN 40 MG TAB PO SCH (21:15)
[2021-11-10] MEDS ORDERED: Nursing to Pharmacy Communication SCH (22:30)
[2021-11-10] MEDS: HEPARIN SODIUM/DEXTROSE 25,000 UNITS/500 ML BAG IV SCH ×3 (23:03→23:06)
[2021-11-11] MEDS: traMADol HCL 50 MG TABLET PO PRN ×3 (00:18→15:21)
[2021-11-11 07:11] LABS: BUN Creatinine Ratio 11.3 (10-20); Creatinine Clr Calc Pharmacy 140.6 ml/min; Est GFR (African American) 121.5 ml/min; Est GFR (Non-African American) 104.8 ml/min; Potassium 3.7 mmol/L (3.5-5.1)
[2021-11-11 07:25] LABS: Partial Thromboplastin Ratio 2.2
[2021-11-11 07:34] LABS: Partial Thromboplastin Time 58.4 Seconds (21.0-31.0)
[2021-11-11] MEDS: BUMETANIDE 1 MG TAB PO SCH (08:17)
[2021-11-11] MEDS: CYANOCOBALAMIN (B-12) 500 MCG TABLET PO SCH (08:17)
[2021-11-11] MEDS: EUCERIN CR 120 GM JAR EXT SCH ×2 (08:17→19:51)
[2021-11-11] MEDS: DICLOFENAC SOD 1% GEL 100 GM TUBE EXT SCH ×4 (08:17→19:51)
[2021-11-11] MEDS: METOPROLOL TARTRATE 50 MG TAB PO SCH ×2 (08:18→19:50)
[2021-11-11] MEDS: lamoTRIgine 100 MG TAB PO SCH ×2 (08:18→19:49)
[2021-11-11] MEDS: lamoTRIgine 25 MG TAB PO SCH ×2 (08:18→19:50)
[2021-11-11] MEDS: ESCITALOPRAM OXALATE 10 MG TAB PO SCH (08:18)
[2021-11-11] MEDS: POTASSIUM CHLORIDE CRTAB 20 MEQ TABCR PO SCH (08:18)
[2021-11-11] MEDS: PHENYTOIN SODIUM ER 100 MG CAP PO SCH ×3 (08:19→19:49)
[2021-11-11] MEDS: BACLOFEN 10 MG TAB PO SCH ×2 (08:23→19:51)
[2021-11-11] MEDS: ACETAMINOPHEN 500 MG TAB PO SCH ×3 (08:23→19:50)
[2021-11-11] MEDS: ATORVASTATIN 40 MG TAB PO SCH (19:49)
--- NOTE | 2021-11-11 20:02 | Hospitalist Progress Note ---
Date of Service November 11, 2021 Assessment & Plan (1) Dilantin toxicity: Plan: Peak dilantin level 24. Dilantin held. Level today now 14. Can resume dilantin today as follows - 100mg am, 100mg afternoon, 200mg HS (had been 200mg TID). Suspect high dilantin levels had contributed to recent lethargy, confusion, etc. Check dilantin level in 5 days (steady state). (2) Acute encephalopathy: Plan: suspect toxic in nature (dilantin, gabapentin, etc) metabolic w/u negative cont supportive care this is overall improved/resolved (3) Pulmonary emboli: Plan: In light of severely impaired mobility, the known/recurrent LLE DVT, and low- normal O2 sats (90-94%) I elected to perform CTA chest to r/o PE this past weekend. CTA study showed right-sided PEs. Remains on heparin drip. Thus far tolerating the drip without overt bleeding. H/H stable. VERY CLOSE observation for recurrent retroperitoneal bleeding (had such in 2 when INR was 7) and prior intra-cerebral hemorrhage in 2018. At this time IVC filter was deferred by vascular surgery unless he has additional bleeding complications. Appreciate heme/onc input. If he continues to remain stable on heparin drip will change to lovenox 1mg/kg BID. (4) DVT (deep venous thrombosis): Plan: LLE - recurrent. Acute DVT is in the distal common femoral vein, superficial femoral vein, and popliteal vein. Coumadin was held since September due to retroperitoneal bleeding during that admission. Will cautiously cont heparin infusion standard dosing. PTTs per protocol. CBCs have been stable. (5) Generalized epilepsy: Plan: Dilantin level was HIGH Dilantin held; see #1 above repeat level today now 14 Resume dilantin as above Continue lamictal (6) Benign hypertension: Plan: Continue metoprolol 50 mg p.o. twice daily (7) Hemiparesis of left nondominant side: Plan: 2nd to GBM with prior resection and resulting encephalomalacia (8) Hyponatremia: Plan: present since early September 2021. serum osm, urine osm, urine Na - c/w SIADH. patient appears euvolemic on examination. cont bumex 1mg daily. Na is improved and stable. (9) Flexion contracture of joint of left lower leg: Plan: Left leg pain is his most consistent complaint day to day and has been at home as well per his . Trials of pain meds and gabapentin were not helpful or successful. Now that mental status is improved trial of baclofen 5mg BID. Titrate as tolerated. Plan: severely dry skin - eucerin cream BID to affected areas left knee pain - voltaren gel 4gm QID; likely due to chronic contracture Danielle extensively updated by phone earlier this week; left message for her on her [employer] yesterday dispo - SNF placement Admission and Anticipated Discharge Date Admission Date: November 02, 2021 Subjective patient resting comfortably during the visit no new complaints with respect to left leg - when asked if having lots of pain today - replied no did state he was "tired" despite being tired he was quite conversant Review of Systems Review of Systems: gen - fatigue, but eating well cv - no cp pulm - no dyspnea GI - no pain, had bowel movement earlier today Physical Exam Physical Exam: gen - NAD, awake, alert, looks good today heart - RRR, s1 s2, no murmur lungs - CTA b/l abd - soft NT ND BS+ neuro - left-sided hemiparesis with increased tone in the left leg; left arm strength about 3-4/5; left leg strength 1/5 (unchanged) ext - no edema, pulses 2+ b/l musculo - with passive range of motion of the left hip and knee he does not have pain with such today Results & Data Results & Data ([facility]) Vital Signs (Past 12 Hours) Vital Signs Temp Pulse Pulse Resp BP Pulse Ox 11/11/21 19:48 36.8 C 77 20 121/83 94 11/11/21 14:57 72 11/11/21 14:34 36.7 C 71 20 120/82 93 11/11/21 11:25 36.5 C 66 18 119/81 93 Laboratory Results Laboratory Results - last 24 hr 11/11/21 11/11/21 11/11/21 05:56 05:56 05:56 APTT 58.4 H* PTT Ratio 2.2 Sodium 134 L Potassium 3.7 Chloride 99 Carbon Dioxide 26 Anion Gap 9 BUN 7 Creatinine 0.62 Est Cr Clr Drug Dosing 140.6 Est GFR ( Amer) 121.5 Est GFR (Non-Af Amer) 104.8 BUN/Creatinine Ratio 11.3 Glucose 96 Calcium 9.0 Phenytoin 14.5 PG Care Time/CCT Total # of Minutes Spent Total Time Spent with Patient: Total time spent is greater than 50% in coordination of care (as documented) at patient's floor/unit and/or counseling patient: Coding Level of Care Code 22018 Subseq Hosp Care Lvl 2 Diagnoses Dilantin toxicity T42.0X1A Acute encephalopathy G93.40 Pulmonary emboli I26.99 DVT (deep venous thrombosis) I82.402 Affected thrombotic vein of extremity: unspecified vein of extremity Chronicity: acute DVT location: lower extremity Laterality: left Generalized epilepsy G40.309 Benign hypertension I10 Hemiparesis of left nondominant side G81.94 Hemiparesis etiology: unspecified Hyponatremia E87.1 Flexion contracture of joint of left lower leg M24.562 (1) DVT (deep venous thrombosis) Affected thrombotic vein of extremity: unspecified vein of extremity Chronicity: acute DVT location: lower extremity Laterality: left Qualified Code(s): I82.402 - Acute embolism and thrombosis of unspecified deep veins of left lower extremity (2) Hemiparesis of left nondominant side Hemiparesis etiology: unspecified Qualified Code(s): G81.94 - Hemiplegia, unspecified affecting left nondominant side
[2021-11-11] MEDS ORDERED: Nursing to Pharmacy Communication SCH (23:45)
[2021-11-12] MEDS: HEPARIN SODIUM/DEXTROSE 25,000 UNITS/500 ML BAG IV SCH ×2 (04:12→10:47)
[2021-11-12] MEDS: traMADol HCL 50 MG TABLET PO PRN ×4 (06:49→21:16)
[2021-11-12 06:50] LABS: Basophils # (auto) 0.01 K/uL (0-0.2); Basophils % (auto) 0.2 %; Eosinophils # (auto) 0.17 K/uL (0-0.5); Eosinophils % (auto) 2.8 %; Hematocrit (blood only) 42.7 % (42-52); Hemoglobin 15.2 g/dL (14.0-18.0); Immature Granulocytes # (auto) 0.02 K/uL (0.00-0.02); Immature Granulocytes % (auto) 0.3 %; Lymphocytes # (auto) 1.16 K/uL (1.2-3.4); Lymphocytes % (auto) 19.3 %; Mean Corpuscular Hemoglobin 33.4 pg (25-34); Mean Corpuscular Hgb Conc 35.6 g/dL (32-36); Mean Corpuscular Volume 93.8 fL (80-100); Mean Platelet Volume 9.4 fL (7.4-10.4); Monocytes # (auto) 0.52 K/uL (0.11-0.59); Monocytes % (auto) 8.7 %; Neutrophils # (auto) 4.13 K/uL (1.4-6.5); Neutrophils % (auto) 68.7 %; Platelet Count 252 K/uL (130-400); RDW Coefficient of Variation 13.1 % (11.5-14.5); RDW Standard Deviation 44.9 fL (36.4-46.3); Red Blood Count 4.55 M/uL (4.7-6.1); White Blood Count 6.01 K/uL (4.8-10.8)
[2021-11-12 07:37] LABS: Partial Thromboplastin Time 78.9 Seconds (21.0-31.0)
[2021-11-12] MEDS: ACETAMINOPHEN 500 MG TAB PO SCH ×4 (08:00→21:17)
[2021-11-12] MEDS: BACLOFEN 10 MG TAB PO SCH ×3 (08:01→20:49)
[2021-11-12] MEDS: BUMETANIDE 1 MG TAB PO SCH (08:02)
[2021-11-12] MEDS: EUCERIN CR 120 GM JAR EXT SCH ×2 (08:02→20:02)
[2021-11-12] MEDS: DICLOFENAC SOD 1% GEL 100 GM TUBE EXT SCH ×4 (08:02→20:02)
[2021-11-12] MEDS: CYANOCOBALAMIN (B-12) 500 MCG TABLET PO SCH (08:02)
[2021-11-12] MEDS: ESCITALOPRAM OXALATE 10 MG TAB PO SCH (08:02)
[2021-11-12] MEDS: lamoTRIgine 100 MG TAB PO SCH ×2 (08:03→20:43)
[2021-11-12] MEDS: METOPROLOL TARTRATE 50 MG TAB PO SCH ×2 (08:03→20:42)
[2021-11-12] MEDS: lamoTRIgine 25 MG TAB PO SCH ×2 (08:03→20:43)
[2021-11-12] MEDS: POTASSIUM CHLORIDE CRTAB 20 MEQ TABCR PO SCH (08:04)
[2021-11-12] MEDS: PHENYTOIN SODIUM ER 100 MG CAP PO SCH ×3 (08:04→20:01)
[2021-11-12] MEDS: ENOXAPARIN 100 MG/1ML SYR SQ SCH ×2 (10:43→20:50)
--- NOTE | 2021-11-12 19:00 | Hospitalist Progress Note ---
Date of Service November 12, 2021 Assessment & Plan (1) Dilantin toxicity: Plan: Resolved. Peak dilantin level 24. Dilantin held, and most recent level = 14. Dilantin resumed 11/11/21 - 100mg am, 100mg afternoon, 200mg HS (had been 200mg TID). Suspect high dilantin levels had contributed to recent lethargy, confusion, etc. Check dilantin level in 5 days (steady state) which will be 11/16/21. (2) Acute encephalopathy: Plan: suspect toxic in nature (dilantin, gabapentin, etc) metabolic w/u negative cont supportive care confusion/altered MS resolved thus far tolerating the baclofen nicely without excessive lethargy (3) Pulmonary emboli: Plan: In light of severely impaired mobility, the known/recurrent LLE DVT, and low-n ormal O2 sats (90-94%) I elected to perform CTA chest to r/o PE this past weekend. CTA study showed right-sided PEs. Remains on heparin drip. Thus far tolerating the drip without overt bleeding. H/H stable. NO evidence of recurrent retroperitoneal bleeding (had such in 09/2021 when INR was 7) and prior intra-cerebral hemorrhage in 2018. At this time IVC filter was deferred by vascular surgery unless he has additional bleeding complications. Appreciate heme/onc input. Will d/c heparin drip today; change to lovenox 1mg/kg SC BID. He should remain on lovenox until he has f/u with Dr Lopez in the heme/onc clinic as an outpatient. (4) DVT (deep venous thrombosis): Plan: LLE - recurrent. Acute DVT is in the distal common femoral vein, superficial femoral vein, and popliteal vein. Coumadin was held since September due to retroperitoneal bleeding during that admission. CBCs stable. d/c heparin drip today - stable on such for 6-7 days. Transition to SC lovenox today. (5) Generalized epilepsy: Plan: Dilantin level was HIGH Dilantin held; see #1 above Resume dilantin as above Continue lamictal (6) Benign hypertension: Plan: Continue metoprolol 50 mg p.o. twice daily (7) Hemiparesis of left nondominant side: Plan: 2nd to GBM with prior resection and resulting encephalomalacia (8) Hyponatremia: Plan: present since early September 2021. serum osm, urine osm, urine Na - c/w SIADH. patient appears euvolemic on examination. cont bumex 1mg daily. Na is improved and stable. (9) Flexion contracture of joint of left lower leg: Plan: Left leg pain is his most consistent complaint day to day and has been at home as well per his . Trials of pain meds and gabapentin were not helpful or successful (or he had side effects from meds). Now that mental status is improved trial of baclofen 5mg BID. Titrate as tolerated. Thus far doing well on it. Could even consider a referral to pain management down the line to discuss candidacy for baclofen pump. Plan: severely dry skin - eucerin cream BID to affected areas - improving left knee pain - voltaren gel 4gm QID; likely due to chronic contracture Danielle extensively updated by phone this evening dispo - SNF placement, multiple referrals in place Admission and Anticipated Discharge Date Admission Date: November 02, 2021 Subjective no issues overnight no overt bleeding from any location tele wnl patient resting comfortably during the visit states that left leg pain is better although it did hurt during his PT session today eating well per nursing flowsheets Review of Systems Review of Systems: gen - appetite is good; no fever cv - no orthopnea, no pain pulm - no dyspnea GI - no abd pain, N, V or diarrhea - PVR <100cc on bladder scan Physical Exam Physical Exam: gen - NAD, awake, alert, looks good heart - RRR, s1 s2, no murmur lungs - CTA b/l abd - soft NT ND BS+ neuro - left-sided hemiparesis with increased tone in the left leg; no spasm seen today ext - no edema, pulses 2+ b/l musculo - with passive range of motion of the left hip and knee he does not have pain with such today; left knee without effusion or warmth Results & Data Results & Data ([facility]) Vital Signs (Past 12 Hours) Vital Signs Temp Pulse Pulse Resp BP Pulse Ox 11/12/21 15:15 83 11/12/21 14:57 36.5 C 75 20 122/85 95 11/12/21 11:59 83 11/12/21 11:21 36.6 C 70 20 122/85 90 11/12/21 07:42 36.6 C 85 20 137/97 95 Laboratory Results Laboratory Results - last 24 hr 11/12/21 11/12/21 06:07 06:07 WBC 6.01 RBC 4.55 L Hgb 15.2 Hct 42.7 MCV 93.8 MCH 33.4 MCHC 35.6 RDW Std Deviation 44.9 RDW Coeff of Paul 13.1 Plt Count 252 MPV 9.4 Immature Gran % (Auto) 0.3 Neut % (Auto) 68.7 Lymph % (Auto) 19.3 [place] % (Auto) 8.7 Eos % (Auto) 2.8 Baso % (Auto) 0.2 Neut # (Auto) 4.13 Lymph # (Auto) 1.16 L [place] # (Auto) 0.52 Eos # (Auto) 0.17 Baso # (Auto) 0.01 Immature Gran # (Auto) 0.02 APTT 78.9 H* PTT Ratio 3.0 PG Care Time/CCT Total # of Minutes Spent Total Time Spent with Patient: Total time spent is greater than 50% in coordination of care (as documented) at patient's floor/unit and/or counseling patient: Coding Level of Care Code 96722 Subseq Hosp Care Lvl 2 Diagnoses Dilantin toxicity T42.0X1A Acute encephalopathy G93.40 Pulmonary emboli I26.99 DVT (deep venous thrombosis) I82.402 Affected thrombotic vein of extremity: unspecified vein of extremity Chronicity: acute DVT location: lower extremity Laterality: left Generalized epilepsy G40.309 Benign hypertension I10 Hemiparesis of left nondominant side G81.94 Hemiparesis etiology: unspecified Hyponatremia E87.1 Flexion contracture of joint of left lower leg M24.562 (1) DVT (deep venous thrombosis) Affected thrombotic vein of extremity: unspecified vein of extremity Chronicity: acute DVT location: lower extremity Laterality: left Qualified Code(s): I82.402 - Acute embolism and thrombosis of unspecified deep veins of left lower extremity (2) Hemiparesis of left nondominant side Hemiparesis etiology: unspecified Qualified Code(s): G81.94 - Hemiplegia, unspecified affecting left nondominant side
[2021-11-12] MEDS: ATORVASTATIN 40 MG TAB PO SCH (20:43)
[2021-11-13 07:58] LABS: Anion Gap 12 (3-11); BUN Creatinine Ratio 15.8 (10-20); Blood Urea Nitrogen 9 mg/dl (6-23); Calcium 9.1 mg/dl (8.5-10.1); Carbon Dioxide 22 mmol/L (21-32); Chloride 97 mmol/L (98-107); Creatinine Clr Calc Pharmacy 150.4 ml/min; Est GFR (African American) 125.8 ml/min; Est GFR (Non-African American) 108.5 ml/min; Glucose 98 mg/dl (70-99(Fasting)); Sodium 131 mmol/L (136-145)
[2021-11-13] MEDS: BACLOFEN 10 MG TAB PO SCH ×2 (08:40→21:16)
[2021-11-13] MEDS: BUMETANIDE 1 MG TAB PO SCH (08:40)
[2021-11-13] MEDS: POTASSIUM CHLORIDE CRTAB 20 MEQ TABCR PO SCH (08:40)
[2021-11-13] MEDS: traMADol HCL 50 MG TABLET PO PRN ×3 (08:40→21:13)
[2021-11-13] MEDS: PHENYTOIN SODIUM ER 100 MG CAP PO SCH ×3 (08:41→21:19)
[2021-11-13] MEDS: EUCERIN CR 120 GM JAR EXT SCH ×2 (08:42→21:17)
[2021-11-13] MEDS: ONDANSETRON 4 MG OD TAB PO PRN (09:10)
--- NOTE | 2021-11-13 09:12 | Hospitalist Progress Note ---
Date of Service November 13, 2021 Assessment & Plan (1) Dilantin toxicity: Plan: Peak dilantin level 24. Dilantin held. Level today now 14. Can resume dilantin today as follows - 100mg am, 100mg afternoon, 200mg HS (had been 200mg TID). Suspect high dilantin levels had contributed to recent lethargy, confusion, etc. Check dilantin level in 5 days (steady state). (2) Acute encephalopathy: Plan: Resolved suspect toxic in nature (dilantin, gabapentin, etc) metabolic w/u negative cont supportive care (3) Pulmonary emboli: Plan: CTA study showed right-sided PEs. Heparin drip initiated -subsequently changed to Lovenox 95 mg SQ every 12 hours (therapeutic dosing) VERY CLOSE observation for recurrent retroperitoneal bleeding (had such in 09/2021 when INR was 7) and prior intra-cerebral hemorrhage in 2018. At this time IVC filter was deferred by vascular surgery unless he has additional bleeding complications. Appreciate heme/onc input. (4) DVT (deep venous thrombosis): Plan: LLE - recurrent. Acute DVT is in the distal common femoral vein, superficial femoral vein, and popliteal vein. Coumadin was held since September due to retroperitoneal bleeding during that admission. New findings of bilateral pulmonary emboli. Patient started on Lovenox 1 mg/kg SQ (95 mg twice daily) (5) Generalized epilepsy: Plan: Dilantin level was HIGH Dilantin held; see #1 above repeat level 14.5 Resume dilantin as above Check Dilantin level again in 5 days (11/16/2021) Continue lamictal (6) Benign hypertension: Plan: Continue metoprolol 50 mg p.o. twice daily (7) Hemiparesis of left nondominant side: Plan: 2nd to GBM with prior resection and resulting encephalomalacia (8) Hyponatremia: Plan: present since early September 2021. serum osm, urine osm, urine Na - c/w SIADH. patient appears euvolemic on examination. cont bumex 1mg daily. Na is stable at 131 (9) Flexion contracture of joint of left lower leg: Plan: Left leg pain is his most consistent complaint day to day and has been at home as well per his . Trials of pain meds and gabapentin were not helpful or successful. Now that mental status is improved trial of baclofen 5mg BID. Titrate as tolerated. Consider outpatient appointment with pain clinic for evaluation for possible baclofen pump. Plan: severely dry skin - eucerin cream BID to affected areas left knee pain - voltaren gel 4gm QID; likely due to chronic contracture dispo - SNF placement Admission and Anticipated Discharge Date Admission Date: November 02, 2021 Subjective Attending: Dr. Carias Patient seen and examined in room 258. Started on baclofen for left lower extremity pain. This seems to be helping. Chronic hyponatremia. Sodium level 131. There was some mention of hemolysis on labs this morning. Unable to calculate potassium level. Will repeat BMP at noon. Currently awaiting placement at assisted facility due to functional decompensation due to left lower extremity pain and spasm. Patient reports that pain is episodic. Currently seems to be well controlled. He has no fever or chills. He has no acute complaints. Review of Systems Review of Systems: All systems reviewed & are unremarkable except as noted in Subjective Physical Exam Physical Exam: GENERAL : No acute distress. Pleasant. EYES: No icterus, gaze conjugate NOSE: No evidence of epistaxis MOUTH: No lesions or candidiasis NECK: Supple LUNGS: CTA B/L, no wheezes, rales or rhonchi HEART: Regular, rate controlled ABDOMEN: Soft, NT, ND, BS Present EXTREMITIES: Trace LE edema, pedal pulses intact. Somewhat tender to palpation with left foot NEURO: A&OX3 Results & Data Results & Data ([facility]) Vital Signs (Past 12 Hours) Vital Signs Temp Pulse Resp BP Pulse Ox 11/13/21 08:06 37.4 C 89 18 157/92 H 94 11/13/21 04:00 36.9 C 77 18 125/86 94 11/13/21 00:10 36.9 C 72 18 112/78 93 Critical Care Results & Data Vital Signs (Past 12 Hours) Vital Signs Temp Pulse Resp BP Pulse Ox 11/13/21 08:06 37.4 C 89 18 157/92 H 94 11/13/21 04:00 36.9 C 77 18 125/86 94 11/13/21 00:10 36.9 C 72 18 112/78 93 Lab & Micro Results (Past 24 Hours) No Data to Display Na 132 mmol/L (136-145) L 11/13/21 K 4.2 mmol/L (3.5-5.1) 11/13/21 Cl 96 mmol/L (98-107) L 11/13/21 CO2 26 mmol/L (21-32) 11/13/21 Anion Gap 10 (3-11) 11/13/21 BUN 9 mg/dl (6-23) 11/13/21 Creatinine 0.73 mg/dl (0.6-1.4) 11/13/21 Estimated GFR ( Amer) 113.6 ml/min 11/13/21 Estimated GFR (Non-Af Amer) 98.0 ml/min 11/13/21 BUN/Creatinine Ratio 12.3 (10-20) 11/13/21 Glu 107 mg/dl (70-99(Fasting)) H 11/13/21 Ca 9.5 mg/dl (8.5-10.1) 11/13/21 Calcium Level 9.5 mg/dl (8.5-10.1) 11/13/21 12:00 11/13/21 I & O Totals 24 Hours 11/12/21 11/13/21 11/14/21 06:59 06:59 06:59 Intake Total 641.733 / 641.733 733.45 / 733.45 Output Total 700 / 700 1525 / 1525 Balance -58.267 / -58.267 -791.55 / -791.55 Cumulative 11/02/21 16:28 thru 11/13/21 06:00 Intake Total 7203.550 Output Total 7040 Balance 163.550 RT Ventilator Mngmt (Last Documented) Ventilator Ordered Settings Respiratory Rate 18 11/13/21 08:06 Ventilator - PT Measurements Respiratory Rate 18 PG Care Time/CCT Total # of Minutes Spent Total Time Spent with Patient: Total time spent is greater than 50% in coordination of care (as documented) at patient's floor/unit and/or counseling patient: 25 minutes Coding Level of Care Code 89027 Subseq Hosp Care Lvl 2 Diagnoses Dilantin toxicity T42.0X1A Acute encephalopathy G93.40 Pulmonary emboli I26.99 DVT (deep venous thrombosis) I82.402 Affected thrombotic vein of extremity: unspecified vein of extremity Chronicity: acute DVT location: lower extremity Laterality: left Generalized epilepsy G40.309 Benign hypertension I10 Hemiparesis of left nondominant side G81.94 Hemiparesis etiology: unspecified Hyponatremia E87.1 Flexion contracture of joint of left lower leg M24.562 Time Spent (min) 25 (1) DVT (deep venous thrombosis) Affected thrombotic vein of extremity: unspecified vein of extremity Chronicity: acute DVT location: lower extremity Laterality: left Qualified Code(s): I82.402 - Acute embolism and thrombosis of unspecified deep veins of left lower extremity (2) Hemiparesis of left nondominant side Hemiparesis etiology: unspecified Qualified Code(s): G81.94 - Hemiplegia, unspecified affecting left nondominant side
[2021-11-13] MEDS: ACETAMINOPHEN 500 MG TAB PO SCH ×3 (10:17→21:12)
[2021-11-13] MEDS: lamoTRIgine 25 MG TAB PO SCH ×2 (10:18→21:20)
[2021-11-13] MEDS: METOPROLOL TARTRATE 50 MG TAB PO SCH ×2 (10:18→21:18)
[2021-11-13] MEDS: lamoTRIgine 100 MG TAB PO SCH ×2 (10:18→21:18)
[2021-11-13] MEDS: ENOXAPARIN 100 MG/1ML SYR SQ SCH ×2 (10:19→21:21)
[2021-11-13] MEDS: ESCITALOPRAM OXALATE 10 MG TAB PO SCH (10:19)
[2021-11-13] MEDS: CYANOCOBALAMIN (B-12) 500 MCG TABLET PO SCH (10:19)
[2021-11-13] MEDS: DICLOFENAC SOD 1% GEL 100 GM TUBE EXT SCH ×4 (10:22→21:17)
[2021-11-13 13:03] LABS: BUN Creatinine Ratio 12.3 (10-20); Calcium 9.5 mg/dl (8.5-10.1); Creatinine Clr Calc Pharmacy 117.4 ml/min; Est GFR (African American) 113.6 ml/min; Potassium 4.3 mmol/L (3.5-5.1)
[2021-11-13] MEDS: ATORVASTATIN 40 MG TAB PO SCH (21:15)
[2021-11-14] MEDS: traMADol HCL 50 MG TABLET PO PRN ×3 (03:48→17:52)
[2021-11-14] MEDS: ACETAMINOPHEN 500 MG TAB PO SCH ×3 (09:01→21:31)
[2021-11-14] MEDS: BACLOFEN 10 MG TAB PO SCH ×2 (09:01→21:33)
[2021-11-14] MEDS: DICLOFENAC SOD 1% GEL 100 GM TUBE EXT SCH ×4 (09:02→21:34)
[2021-11-14] MEDS: CYANOCOBALAMIN (B-12) 500 MCG TABLET PO SCH (09:02)
[2021-11-14] MEDS: BUMETANIDE 1 MG TAB PO SCH (09:02)
[2021-11-14] MEDS: ESCITALOPRAM OXALATE 10 MG TAB PO SCH (09:02)
[2021-11-14] MEDS: PHENYTOIN SODIUM ER 100 MG CAP PO SCH ×3 (09:03→21:36)
[2021-11-14] MEDS: lamoTRIgine 25 MG TAB PO SCH ×2 (09:03→21:35)
[2021-11-14] MEDS: METOPROLOL TARTRATE 50 MG TAB PO SCH ×2 (09:03→21:36)
[2021-11-14] MEDS: lamoTRIgine 100 MG TAB PO SCH ×2 (09:03→21:36)
[2021-11-14] MEDS: ENOXAPARIN 100 MG/1ML SYR SQ SCH ×2 (09:04→21:37)
[2021-11-14] MEDS: POTASSIUM CHLORIDE CRTAB 20 MEQ TABCR PO SCH (09:04)
[2021-11-14] MEDS: EUCERIN CR 120 GM JAR EXT SCH ×2 (09:19→21:34)
[2021-11-14 10:09] LABS: Basophils # (auto) 0.01 K/uL (0-0.2); Basophils % (auto) 0.1 %; Eosinophils # (auto) 0.07 K/uL (0-0.5); Hematocrit (blood only) 44.1 % (42-52); Hemoglobin 15.3 g/dL (14.0-18.0); Immature Granulocytes # (auto) 0.03 K/uL (0.00-0.02); Immature Granulocytes % (auto) 0.4 %; Lymphocytes # (auto) 1.02 K/uL (1.2-3.4); Lymphocytes % (auto) 14.8 %; Mean Corpuscular Hgb Conc 34.7 g/dL (32-36); Mean Platelet Volume 9.4 fL (7.4-10.4); Monocytes # (auto) 0.64 K/uL (0.11-0.59); Monocytes % (auto) 9.3 %; Neutrophils % (auto) 74.4 %; Platelet Count 250 K/uL (130-400); RDW Coefficient of Variation 13.1 % (11.5-14.5); RDW Standard Deviation 45.3 fL (36.4-46.3); Red Blood Count 4.64 M/uL (4.7-6.1); White Blood Count 6.87 K/uL (4.8-10.8)
[2021-11-14] MEDS: LORazepam 0.5 MG TAB PO PRN (11:46)
[2021-11-14] MEDS: ONDANSETRON 4 MG OD TAB PO PRN (17:53)
--- NOTE | 2021-11-14 20:28 | Hospitalist Progress Note ---
Date of Service November 14, 2021 Assessment & Plan (1) Dilantin toxicity: Plan: Peak dilantin level 24. Dilantin held. Last Level now 14. Continue dilantin as follows - 100mg am, 100mg afternoon, 200mg HS (had been 200mg TID). Suspect high dilantin levels had contributed to recent lethargy, confusion, etc. Check dilantin level in 5 days (steady state). (2) Acute encephalopathy: Plan: Resolved suspect toxic in nature (dilantin, gabapentin, etc) metabolic w/u negative cont supportive care (3) Pulmonary emboli: Plan: CTA study showed right-sided PEs. Heparin drip initiated -subsequently changed to Lovenox 95 mg SQ every 12 hours (therapeutic dosing) VERY CLOSE observation for recurrent retroperitoneal bleeding (had such in 09/2021 when INR was 7) and prior intra-cerebral hemorrhage in 2018. At this time IVC filter was deferred by vascular surgery unless he has additional bleeding complications. Appreciate heme/onc input. (4) DVT (deep venous thrombosis): Plan: LLE - recurrent. Acute DVT is in the distal common femoral vein, superficial femoral vein, and popliteal vein. Coumadin was held since September due to retroperitoneal bleeding during that admission. New findings of bilateral pulmonary emboli. Patient started on Lovenox 1 mg/kg SQ (95 mg twice daily) (5) Generalized epilepsy: Plan: Dilantin level was HIGH Dilantin held; see #1 above repeat level 14.5 Resume dilantin as above Check Dilantin level again in 5 days (11/16/2021) Continue lamictal (6) Benign hypertension: Plan: Continue metoprolol 50 mg p.o. twice daily (7) Hemiparesis of left nondominant side: Plan: 2nd to GBM with prior resection and resulting encephalomalacia (8) Hyponatremia: Plan: present since early September 2021. serum osm, urine osm, urine Na - c/w SIADH. patient appears euvolemic on examination. cont bumex 1mg daily. Na is stable at 131 (9) Flexion contracture of joint of left lower leg: Plan: Left leg pain is his most consistent complaint day to day and has been at home as well per his . Trials of pain meds and gabapentin were not helpful or successful. Now that mental status is improved trial of baclofen 5mg BID. Titrate as tolerated. Consider outpatient appointment with pain clinic for evaluation for possible baclofen pump. Plan: severely dry skin - eucerin cream BID to affected areas left knee pain - voltaren gel 4gm QID; likely due to chronic contracture dispo - SNF placement Admission and Anticipated Discharge Date Admission Date: November 02, 2021 Subjective Patient reports no new complaints. Review of Systems Review of Systems: All systems reviewed & are unremarkable except as noted in HPI & below Physical Exam Physical Exam: GENERAL : No acute distress. Pleasant. EYES: No icterus, gaze conjugate NOSE: No evidence of epistaxis MOUTH: No lesions or candidiasis NECK: Supple LUNGS: CTA B/L, no wheezes, rales or rhonchi HEART: Regular, rate controlled ABDOMEN: Soft, NT, ND, BS Present EXTREMITIES: Trace LE edema, pedal pulses intact. Somewhat tender to palpation with left foot NEURO: A&OX3 Results & Data Results & Data ([facility]) Vital Signs (Past 12 Hours) Vital Signs Temp Pulse Pulse Resp BP Pulse Ox 11/14/21 18:45 36.8 C 80 18 112/81 91 11/14/21 16:00 36.7 C 77 20 105/69 90 11/14/21 15:03 72 11/14/21 12:09 36.7 C 71 18 106/75 93 PG Care Time/CCT Total # of Minutes Spent Total Time Spent with Patient: Total time spent is greater than 50% in coordination of care (as documented) at patient's floor/unit and/or counseling patient: Coding Level of Care Code 90100 Subseq Hosp Care Lvl 2 Diagnoses Dilantin toxicity T42.0X1A Acute encephalopathy G93.40 Pulmonary emboli I26.99 DVT (deep venous thrombosis) I82.402 Affected thrombotic vein of extremity: unspecified vein of extremity Chronicity: acute DVT location: lower extremity Laterality: left Generalized epilepsy G40.309 Benign hypertension I10 Hemiparesis of left nondominant side G81.94 Hemiparesis etiology: unspecified Hyponatremia E87.1 Flexion contracture of joint of left lower leg M24.562 Time Spent (min) 25 (1) DVT (deep venous thrombosis) Affected thrombotic vein of extremity: unspecified vein of extremity Chronicity: acute DVT location: lower extremity Laterality: left Qualified Code(s): I82.402 - Acute embolism and thrombosis of unspecified deep veins of left lower extremity (2) Hemiparesis of left nondominant side Hemiparesis etiology: unspecified Qualified Code(s): G81.94 - Hemiplegia, unspecified affecting left nondominant side
[2021-11-14] MEDS: ATORVASTATIN 40 MG TAB PO SCH (21:32)
[2021-11-15] MEDS: traMADol HCL 50 MG TABLET PO PRN ×3 (01:56→18:15)
[2021-11-15 07:12] LABS: Hemoglobin 15.4 g/dL (14.0-18.0); Mean Corpuscular Hemoglobin 33.4 pg (25-34); Mean Corpuscular Volume 95.4 fL (80-100); Mean Platelet Volume 9.4 fL (7.4-10.4); Platelet Count 241 K/uL (130-400); RDW Coefficient of Variation 13.2 % (11.5-14.5); RDW Standard Deviation 45.7 fL (36.4-46.3); Red Blood Count 4.61 M/uL (4.7-6.1); White Blood Count 4.65 K/uL (4.8-10.8)
[2021-11-15 07:46] LABS: BUN Creatinine Ratio 14.3 (10-20); Calcium 8.7 mg/dl (8.5-10.1); Creatinine Clr Calc Pharmacy 121.9 ml/min; Est GFR (African American) 115.6 ml/min; Est GFR (Non-African American) 99.7 ml/min; Potassium 3.9 mmol/L (3.5-5.1)
[2021-11-15] MEDS: ACETAMINOPHEN 500 MG TAB PO SCH ×3 (09:37→20:27)
[2021-11-15] MEDS: DICLOFENAC SOD 1% GEL 100 GM TUBE EXT SCH ×4 (09:38→20:30)
[2021-11-15] MEDS: CYANOCOBALAMIN (B-12) 500 MCG TABLET PO SCH (09:38)
[2021-11-15] MEDS: BACLOFEN 10 MG TAB PO SCH ×2 (09:38→20:27)
[2021-11-15] MEDS: BUMETANIDE 1 MG TAB PO SCH (09:38)
[2021-11-15] MEDS: EUCERIN CR 120 GM JAR EXT SCH ×2 (09:39→20:30)
[2021-11-15] MEDS: ESCITALOPRAM OXALATE 10 MG TAB PO SCH (09:39)
[2021-11-15] MEDS: lamoTRIgine 100 MG TAB PO SCH ×2 (09:39→20:28)
[2021-11-15] MEDS: PHENYTOIN SODIUM ER 100 MG CAP PO SCH ×3 (09:39→20:28)
[2021-11-15] MEDS: lamoTRIgine 25 MG TAB PO SCH ×2 (09:39→20:27)
[2021-11-15] MEDS: POTASSIUM CHLORIDE CRTAB 20 MEQ TABCR PO SCH (09:39)
[2021-11-15] MEDS: METOPROLOL TARTRATE 50 MG TAB PO SCH ×2 (09:39→20:28)
[2021-11-15] MEDS: ENOXAPARIN 100 MG/1ML SYR SQ SCH ×2 (09:40→20:28)
[2021-11-15] MEDS: ATORVASTATIN 40 MG TAB PO SCH (20:28)
--- NOTE | 2021-11-15 20:41 | Hospitalist Progress Note ---
Date of Service November 15, 2021 Assessment & Plan (1) Dilantin toxicity: Plan: Peak dilantin level 24. Dilantin held. Last Level now 14. Continue dilantin as follows - 100mg am, 100mg afternoon, 200mg HS (had been 200mg TID). Suspect high dilantin levels had contributed to recent lethargy, confusion, etc. Check dilantin level in 5 days (steady state). updated family at bedside (2) Acute encephalopathy: Plan: Resolved suspect toxic in nature (dilantin, gabapentin, etc) metabolic w/u negative cont supportive care (3) Pulmonary emboli: Plan: CTA study showed right-sided PEs. Heparin drip initiated -subsequently changed to Lovenox 95 mg SQ every 12 hours (therapeutic dosing) VERY CLOSE observation for recurrent retroperitoneal bleeding (had such in 09/2021 when INR was 7) and prior intra-cerebral hemorrhage in 2018. At this time IVC filter was deferred by vascular surgery unless he has additional bleeding complications. Appreciate heme/onc input. (4) DVT (deep venous thrombosis): Plan: LLE - recurrent. Acute DVT is in the distal common femoral vein, superficial femoral vein, and popliteal vein. Coumadin was held since September due to retroperitoneal bleeding during that admission. New findings of bilateral pulmonary emboli. Patient started on Lovenox 1 mg/kg SQ (95 mg twice daily) (5) Generalized epilepsy: Plan: Dilantin level was HIGH Dilantin held; see #1 above repeat level 14.5 Resume dilantin as above Check Dilantin level again in 5 days (11/16/2021) Continue lamictal (6) Benign hypertension: Plan: Continue metoprolol 50 mg p.o. 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 serum osm, urine osm, urine Na - c/w SIADH. patient appears euvolemic on examination. cont bumex 1mg daily. Na is stable at 131 (9) Flexion contracture of joint of left lower leg: Plan: Left leg pain is his most consistent complaint day to day and has been at home as well per his . Trials of pain meds and gabapentin were not helpful or successful. Now that mental status is improved trial of baclofen 5mg BID. Titrate as tolerated. Consider outpatient appointment with pain clinic for evaluation for possible baclofen pump. Plan: severely dry skin - eucerin cream BID to affected areas left knee pain - voltaren gel 4gm QID; likely due to chronic contracture dispo - SNF placement Admission and Anticipated Discharge Date Admission Date: November 02, 2021 Subjective Patient reports no new symptoms. Patient having pain in his left leg. Improved once repositioned. Family at bedside, reports months ago, he was able to move his left leg. Review of Systems Review of Systems: All systems reviewed & are unremarkable except as noted in HPI & below Physical Exam Physical Exam: GENERAL : No acute distress. Pleasant. EYES: No icterus, gaze conjugate NOSE: No evidence of epistaxis MOUTH: No lesions or candidiasis NECK: Supple LUNGS: CTA B/L, no wheezes, rales or rhonchi HEART: Regular, rate controlled ABDOMEN: Soft, NT, ND, BS Present EXTREMITIES: Trace LE edema, pedal pulses intact. Somewhat tender to palpation with left foot NEURO: A&OX3 Results & Data Results & Data ([facility]) Vital Signs (Past 12 Hours) Vital Signs Temp Pulse Pulse Resp BP Pulse Ox 11/15/21 19:25 37.1 C 97 H 20 113/77 92 11/15/21 16:00 73 11/15/21 14:56 36.9 C 68 20 107/75 92 11/15/21 11:10 36.8 C 72 20 107/73 92 PG Care Time/CCT Total # of Minutes Spent Total Time Spent with Patient: Total time spent is greater than 50% in coordination of care (as documented) at patient's floor/unit and/or counseling patient: Coding Level of Care Code 26997 Subseq Hosp Care Lvl 2 Diagnoses Dilantin toxicity T42.0X1A Acute encephalopathy G93.40 Pulmonary emboli I26.99 DVT (deep venous thrombosis) I82.402 Affected thrombotic vein of extremity: unspecified vein of extremity Chronicity: acute DVT location: lower extremity Laterality: left Generalized epilepsy G40.309 Benign hypertension I10 Hemiparesis of left nondominant side G81.94 Hemiparesis etiology: unspecified Hyponatremia E87.1 Flexion contracture of joint of left lower leg M24.562 (1) DVT (deep venous thrombosis) Affected thrombotic vein of extremity: unspecified vein of extremity Chronicity: acute DVT location: lower extremity Laterality: left Qualified Code(s): I82.402 - Acute embolism and thrombosis of unspecified deep veins of left lower extremity (2) Hemiparesis of left nondominant side Hemiparesis etiology: unspecified Qualified Code(s): G81.94 - Hemiplegia, unspecified affecting left nondominant side
[2021-11-16 06:42] LABS: Hematocrit (blood only) 44.7 % (42-52); Hemoglobin 15.6 g/dL (14.0-18.0); Mean Corpuscular Hemoglobin 33.1 pg (25-34); Mean Corpuscular Hgb Conc 34.9 g/dL (32-36); Mean Corpuscular Volume 94.7 fL (80-100); Mean Platelet Volume 9.4 fL (7.4-10.4); Platelet Count 258 K/uL (130-400); RDW Coefficient of Variation 13.1 % (11.5-14.5); RDW Standard Deviation 45.5 fL (36.4-46.3); Red Blood Count 4.72 M/uL (4.7-6.1); White Blood Count 6.25 K/uL (4.8-10.8)
[2021-11-16 07:03] LABS: BUN Creatinine Ratio 12.7 (10-20); Calcium 9.7 mg/dl (8.5-10.1); Creatinine Clr Calc Pharmacy 120.1 ml/min; Est GFR (African American) 114.9 ml/min; Est GFR (Non-African American) 99.2 ml/min; Potassium 3.6 mmol/L (3.5-5.1)
[2021-11-16] MEDS: METOPROLOL TARTRATE 50 MG TAB PO SCH ×2 (08:30→22:19)
[2021-11-16] MEDS: lamoTRIgine 25 MG TAB PO SCH ×2 (08:31→22:17)
[2021-11-16] MEDS: CYANOCOBALAMIN (B-12) 500 MCG TABLET PO SCH (08:31)
[2021-11-16] MEDS: BACLOFEN 10 MG TAB PO SCH ×2 (08:31→22:18)
[2021-11-16] MEDS: ESCITALOPRAM OXALATE 10 MG TAB PO SCH (08:32)
[2021-11-16] MEDS: PHENYTOIN SODIUM ER 100 MG CAP PO SCH ×3 (08:32→22:18)
[2021-11-16] MEDS: POTASSIUM CHLORIDE CRTAB 20 MEQ TABCR PO SCH ×2 (08:32→08:37)
[2021-11-16] MEDS: BUMETANIDE 1 MG TAB PO SCH (08:32)
[2021-11-16] MEDS: ACETAMINOPHEN 500 MG TAB PO SCH ×3 (08:33→22:18)
[2021-11-16] MEDS: DICLOFENAC SOD 1% GEL 100 GM TUBE EXT SCH ×4 (08:33→22:19)
[2021-11-16] MEDS: ENOXAPARIN 100 MG/1ML SYR SQ SCH ×2 (08:34→22:17)
[2021-11-16] MEDS: lamoTRIgine 100 MG TAB PO SCH ×2 (08:34→22:19)
[2021-11-16] MEDS: EUCERIN CR 120 GM JAR EXT SCH ×2 (08:34→22:20)
[2021-11-16] MEDS: traMADol HCL 50 MG TABLET PO PRN ×3 (08:49→22:16)
--- NOTE | 2021-11-16 20:54 | Hospitalist Progress Note ---
Date of Service November 16, 2021 Assessment & Plan (1) Dilantin toxicity: Plan: Peak dilantin level 24. Dilantin held. Last Level now 14. Continue dilantin as follows - 100mg am, 100mg afternoon, 200mg HS (had been 200mg TID). Suspect high dilantin levels had contributed to recent lethargy, confusion, etc. repeat dilantin level in 5 days (steady state): 11.2 on 11/16 updated family at bedside on 11/15 (2) Acute encephalopathy: Plan: Resolved suspect toxic in nature (dilantin, gabapentin, etc) metabolic w/u negative cont supportive care (3) Pulmonary emboli: Plan: CTA study showed right-sided PEs. Heparin drip initiated -subsequently changed to Lovenox 95 mg SQ every 12 hours (therapeutic dosing) VERY CLOSE observation for recurrent retroperitoneal bleeding (had such in 09/2021 when INR was 7) and prior intra-cerebral hemorrhage in 2018. At this time IVC filter was deferred by vascular surgery unless he has additional bleeding complications. Appreciate heme/onc input. (4) DVT (deep venous thrombosis): Plan: LLE - recurrent. Acute DVT is in the distal common femoral vein, superficial femoral vein, and popliteal vein. Coumadin was held since September due to retroperitoneal bleeding during that admission. New findings of bilateral pulmonary emboli. Patient started on Lovenox 1 mg/kg SQ (95 mg twice daily) (5) Generalized epilepsy: Plan: Dilantin level was HIGH Dilantin held; see #1 above repeat level 14.5 Resume dilantin as above Checked Dilantin level again in 5 days (11/16/2021) Continue lamictal (6) Benign hypertension: Plan: Continue metoprolol 50 mg p.o. 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 serum osm, urine osm, urine Na - c/w SIADH. patient appears euvolemic on examination. cont bumex 1mg daily. Na is stable at 131 (9) Flexion contracture of joint of left lower leg: Plan: Left leg pain is his most consistent complaint day to day and has been at home as well per his . Trials of pain meds and gabapentin were not helpful or successful. Now that mental status is improved trial of baclofen 5mg BID. Titrate as tolerated. Consider outpatient appointment with pain clinic for evaluation for possible baclofen pump. Plan: severely dry skin - eucerin cream BID to affected areas left knee pain - voltaren gel 4gm QID; likely due to chronic contracture dispo - SNF placement Admission and Anticipated Discharge Date Admission Date: November 02, 2021 Subjective Patient reports pain is better today. Review of Systems Review of Systems: All systems reviewed & are unremarkable except as noted in HPI & below Physical Exam Physical Exam: GENERAL : No acute distress. Pleasant. EYES: No icterus, gaze conjugate NOSE: No evidence of epistaxis MOUTH: No lesions or candidiasis NECK: Supple LUNGS: CTA B/L, no wheezes, rales or rhonchi HEART: Regular, rate controlled ABDOMEN: Soft, NT, ND, BS Present EXTREMITIES: Trace LE edema, pedal pulses intact. Somewhat tender to palpation with left foot NEURO: A&OX3 Results & Data Results & Data ([facility]) Vital Signs (Past 12 Hours) Vital Signs Temp Pulse Pulse Resp BP Pulse Ox 11/16/21 15:05 36.7 C 77 20 100/66 95 11/16/21 15:00 74 11/16/21 10:49 36.5 C 67 20 111/74 94 PG Care Time/CCT Total # of Minutes Spent Total Time Spent with Patient: Total time spent is greater than 50% in coordination of care (as documented) at patient's floor/unit and/or counseling patient: Coding Level of Care Code 64599 Subseq Hosp Care Lvl 2 Diagnoses Dilantin toxicity T42.0X1A Acute encephalopathy G93.40 Pulmonary emboli I26.99 DVT (deep venous thrombosis) I82.402 Affected thrombotic vein of extremity: unspecified vein of extremity Chronicity: acute DVT location: lower extremity Laterality: left Generalized epilepsy G40.309 Benign hypertension I10 Hemiparesis of left nondominant side G81.94 Hemiparesis etiology: unspecified Hyponatremia E87.1 Flexion contracture of joint of left lower leg M24.562 (1) DVT (deep venous thrombosis) Affected thrombotic vein of extremity: unspecified vein of extremity Chronicity: acute DVT location: lower extremity Laterality: left Qualified Code(s): I82.402 - Acute embolism and thrombosis of unspecified deep veins of left lower extremity (2) Hemiparesis of left nondominant side Hemiparesis etiology: unspecified Qualified Code(s): G81.94 - Hemiplegia, unspecified affecting left nondominant side
[2021-11-16] MEDS: ATORVASTATIN 40 MG TAB PO SCH (22:19)
[2021-11-17 06:33] LABS: Hemoglobin 15.2 g/dL (14.0-18.0); Mean Corpuscular Hemoglobin 32.8 pg (25-34); Mean Corpuscular Hgb Conc 34.5 g/dL (32-36); Mean Corpuscular Volume 94.8 fL (80-100); Mean Platelet Volume 9.3 fL (7.4-10.4); Platelet Count 232 K/uL (130-400); RDW Coefficient of Variation 13.1 % (11.5-14.5); RDW Standard Deviation 45.5 fL (36.4-46.3); Red Blood Count 4.64 M/uL (4.7-6.1); White Blood Count 5.83 K/uL (4.8-10.8)
[2021-11-17 07:32] LABS: BUN Creatinine Ratio 12.2 (10-20); Calcium 9.5 mg/dl (8.5-10.1); Creatinine Clr Calc Pharmacy 114.5 ml/min; Est GFR (Non-African American) 97.5 ml/min; Potassium 3.8 mmol/L (3.5-5.1)
--- NOTE | 2021-11-17 08:42 | Hospitalist Progress Note ---
Date of Service November 17, 2021 Assessment & Plan (1) Dilantin toxicity: Plan: Peak dilantin level 24. Dilantin held. Last Level now 14. Continue dilantin as follows - 100mg am, 100mg afternoon, 200mg HS (had been 200mg TID). Suspect high dilantin levels had contributed to recent lethargy, confusion, etc. repeat dilantin level in 5 days (steady state): 11.2 on 11/16 (2) Acute encephalopathy: Plan: Resolved suspect toxic in nature (dilantin, gabapentin, etc) metabolic w/u negative cont supportive care (3) Pulmonary emboli: Plan: CTA study showed right-sided PEs. Heparin drip initiated -subsequently changed to Lovenox 95 mg SQ every 12 hours (therapeutic dosing) VERY CLOSE observation for recurrent retroperitoneal bleeding (had such in 09/2021 when INR was 7) and prior intra-cerebral hemorrhage in 2018. At this time IVC filter was deferred by vascular surgery unless he has additional bleeding complications. Appreciate heme/onc input. (4) DVT (deep venous thrombosis): Plan: LLE - recurrent. Acute DVT is in the distal common femoral vein, superficial femoral vein, and popliteal vein. Coumadin was held since September due to retroperitoneal bleeding during that admission. New findings of bilateral pulmonary emboli. Patient started on Lovenox 1 mg/kg SQ (95 mg twice daily) (5) Generalized epilepsy: Plan: Dilantin level was HIGH Dilantin held; see #1 above repeat level 14.5 Resume dilantin as above Checked Dilantin level again in 5 days (11/16/2021) Continue lamictal (6) Benign hypertension: Plan: Continue metoprolol 50 mg p.o. 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 serum osm, urine osm, urine Na - c/w SIADH. patient appears euvolemic on examination. cont bumex 1mg daily. Na is stable (9) Flexion contracture of joint of left lower leg: Plan: Left leg pain is his most consistent complaint day to day and has been at home as well per his . Trials of pain meds and gabapentin were not helpful or successful. Now that mental status is improved trial of baclofen 5mg BID. Titrate as tolerated. Pain was described as pins and needles/burning, will stop baclofen and try some Neurontin Plan: severely dry skin - eucerin cream BID to affected areas left knee pain - voltaren gel 4gm QID; likely due to chronic contracture dispo - SNF placement Admission and Anticipated Discharge Date Admission Date: November 02, 2021 Subjective Patient seems about be about his usual state he is a left hemiparesis complaining of some paresthesia-like pains in his left leg particularly he has some mild dysarthria awaiting placement Review of Systems Review of Systems: Mild distress and fatigue no headache, no visual changes no speech or swallowing issues no chest pain, pressure or palpitations no shortness of breath, cough or wheezes no abdominal pain, nausea or vomiting, diarrhea or constipation no dysuria, hematuria or frequency Contracture of his left leg with some pins and needlelike pain radiating down his leg to his foot no back pain, CVA tenderness or radicular pain no bruising, bleeding or rashes Left hemiparesis and dysarthria present which are chronic no complaints of anxiety or depression.. Physical Exam Physical Exam: The patient appeared well nourished and normally developed. Vital signs as documented. Head exam is normocephalic atraumatic Neck is without JVD, thyromegaly, or carotid bruits. Lungs are clear to auscultation, no focal loss of breath sounds Cardiac exam, Rhythm is regular.. No murmurs, rubs or gallops. Abdominal exam reveals normal bowel sounds, soft non tender, no masses Extremities are nonedematous and both pedal pulses are present Neurologic exam is alert and oriented, left hemipelegia is present Skin is without bruises or rashes Psychologically is without concerns for anxiety or depression.. Results & Data Results & Data ([facility]) Vital Signs (Past 12 Hours) Vital Signs Temp Pulse Pulse Resp BP Pulse Ox 11/17/21 07:42 98.2 F 81 18 106/76 92 11/16/21 23:51 80 11/16/21 21:25 97.9 F 85 18 110/72 92 PG Care Time/CCT Total # of Minutes Spent Total Time Spent with Patient: Total time spent is greater than 50% in coordination of care (as documented) at patient's floor/unit and/or counseling patient: Coding Level of Care Code 03718 Subseq Hosp Care Lvl 2 Diagnoses Dilantin toxicity T42.0X1A Acute encephalopathy G93.40 Pulmonary emboli I26.99 DVT (deep venous thrombosis) I82.402 Affected thrombotic vein of extremity: unspecified vein of extremity Chronicity: acute DVT location: lower extremity Laterality: left Generalized epilepsy G40.309 Benign hypertension I10 Hemiparesis of left nondominant side G81.94 Hemiparesis etiology: unspecified Hyponatremia E87.1 Flexion contracture of joint of left lower leg M24.562 (1) DVT (deep venous thrombosis) Affected thrombotic vein of extremity: unspecified vein of extremity Chronicity: acute DVT location: lower extremity Laterality: left Qualified Code(s): I82.402 - Acute embolism and thrombosis of unspecified deep veins of left lower extremity (2) Hemiparesis of left nondominant side Hemiparesis etiology: unspecified Qualified Code(s): G81.94 - Hemiplegia, unspecified affecting left nondominant side
[2021-11-17] MEDS: lamoTRIgine 25 MG TAB PO SCH ×2 (09:13→21:25)
[2021-11-17] MEDS: METOPROLOL TARTRATE 50 MG TAB PO SCH ×2 (09:13→21:22)
[2021-11-17] MEDS: BACLOFEN 10 MG TAB PO SCH ×2 (09:14→21:18)
[2021-11-17] MEDS: BUMETANIDE 1 MG TAB PO SCH (09:14)
[2021-11-17] MEDS: lamoTRIgine 100 MG TAB PO SCH ×2 (09:14→21:21)
[2021-11-17] MEDS: traMADol HCL 50 MG TABLET PO PRN ×2 (09:14→14:42)
[2021-11-17] MEDS: ENOXAPARIN 100 MG/1ML SYR SQ SCH ×2 (09:14→21:24)
[2021-11-17] MEDS: ACETAMINOPHEN 500 MG TAB PO SCH ×3 (09:15→21:19)
[2021-11-17] MEDS: PHENYTOIN SODIUM ER 100 MG CAP PO SCH ×3 (09:15→21:23)
[2021-11-17] MEDS: ESCITALOPRAM OXALATE 10 MG TAB PO SCH (09:15)
[2021-11-17] MEDS: CYANOCOBALAMIN (B-12) 500 MCG TABLET PO SCH (09:15)
[2021-11-17] MEDS: EUCERIN CR 120 GM JAR EXT SCH ×2 (09:38→21:21)
[2021-11-17] MEDS: DICLOFENAC SOD 1% GEL 100 GM TUBE EXT SCH ×4 (09:39→21:20)
[2021-11-17] MEDS: POTASSIUM CHLORIDE CRTAB 20 MEQ TABCR PO SCH (09:39)
[2021-11-17] MEDS: oxyCODONE HCL IR 5 MG TAB (IMMEDIATE RELEASE) PO PRN ×2 (11:52→19:20)
[2021-11-17] MEDS: ATORVASTATIN 40 MG TAB PO SCH (21:20)
[2021-11-18] MEDS: traMADol HCL 50 MG TABLET PO PRN ×2 (00:24→08:36)
[2021-11-18] MEDS: ACETAMINOPHEN 500 MG TAB PO SCH ×3 (08:37→23:41)
[2021-11-18] MEDS: BACLOFEN 10 MG TAB PO SCH ×2 (08:40→23:41)
[2021-11-18] MEDS: POTASSIUM CHLORIDE CRTAB 20 MEQ TABCR PO SCH (08:40)
[2021-11-18] MEDS: PHENYTOIN SODIUM ER 100 MG CAP PO SCH ×3 (08:41→23:42)
[2021-11-18] MEDS: DICLOFENAC SOD 1% GEL 100 GM TUBE EXT SCH ×4 (08:41→23:41)
[2021-11-18] MEDS: lamoTRIgine 25 MG TAB PO SCH ×2 (08:41→23:42)
[2021-11-18] MEDS: EUCERIN CR 120 GM JAR EXT SCH ×2 (08:41→23:41)
[2021-11-18] MEDS: CYANOCOBALAMIN (B-12) 500 MCG TABLET PO SCH (08:41)
[2021-11-18] MEDS: METOPROLOL TARTRATE 50 MG TAB PO SCH ×2 (08:41→23:42)
[2021-11-18] MEDS: BUMETANIDE 1 MG TAB PO SCH (08:41)
[2021-11-18] MEDS: ESCITALOPRAM OXALATE 10 MG TAB PO SCH (08:41)
[2021-11-18] MEDS: lamoTRIgine 100 MG TAB PO SCH ×2 (08:41→23:42)
[2021-11-18] MEDS: ENOXAPARIN 100 MG/1ML SYR SQ SCH ×2 (08:42→23:42)
[2021-11-18] MEDS: LORazepam 0.5 MG TAB PO PRN (09:25)
--- NOTE | 2021-11-18 14:21 | Hospitalist Progress Note ---
Date of Service November 18, 2021 Assessment & Plan (1) Dilantin toxicity: Plan: Peak dilantin level 24. Dilantin temporarily held. Last Level now 14. Continue dilantin as follows - 100mg am, 100mg afternoon, 200mg HS (had been 200mg TID). Suspect high dilantin levels had contributed to recent lethargy, confusion, etc. repeat dilantin level in 5 days (steady state): 11.2 on 11/16 (2) Acute encephalopathy: Plan: Resolved suspect toxic in nature (dilantin, gabapentin, etc) metabolic w/u negative cont supportive care (3) Pulmonary emboli: Plan: CTA study showed right-sided PEs. Heparin drip initiated -subsequently changed to Lovenox 95 mg SQ every 12 hours (therapeutic dosing) observation for recurrent retroperitoneal bleeding (had such in 09/2021 when INR was 7) and prior intra-cerebral hemorrhage in 2018. At this time IVC filter was deferred by vascular surgery unless he has additional bleeding complications. Appreciate heme/onc input. (4) DVT (deep venous thrombosis): Plan: LLE - recurrent. Acute DVT is in the distal common femoral vein, superficial femoral vein, and popliteal vein. Coumadin was held since September due to retroperitoneal bleeding during that admission. New findings of bilateral pulmonary emboli. Patient started on Lovenox 1 mg/kg SQ (95 mg twice daily) (5) Generalized epilepsy: Plan: Dilantin level was HIGH on admission Dilantin previously held; see #1 above repeat level 14.5 Resumed dilantin as above . Serial Dilantin levels Continue lamictal (6) Benign hypertension: Plan: Continue metoprolol 50 mg p.o. 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 serum osm, urine osm, urine Na - c/w SIADH. patient appears euvolemic on examination. cont bumex 1mg daily. Na is stable (9) Flexion contracture of joint of left lower leg: Plan: Left leg pain is his most consistent complaint day to day and has been at home as well per his . Trials of pain meds and gabapentin were not helpful or successful. Now on trial of baclofen 5mg BID. Titrate as tolerated. Pain was described as pins and needles/burning. Stopped baclofen and trying Neurontin Plan: severely dry skin - eucerin cream BID to affected areas left knee pain - voltaren gel 4gm QID; likely due to chronic contracture dispo - SNF placement Admission and Anticipated Discharge Date Admission Date: November 02, 2021 Subjective Alert and oriented. No new problems. Oxycodone has been discontinued per 's request due to his abuse of oxycodone in the past. Case management is looking into SNF placement. He is medically stable for discharge when bed is available Review of Systems Review of Systems: Constitutional-no fever or chills ENT-no blurred vision, no double vision, no epistaxis, no sore throat Respiratory-no cough, no wheezing, no shortness of breath Cardiac-no palpitations, no chest pain, no syncope GI-no nausea, vomiting, diarrhea, melena, hematochezia -no urinary retention, no urinary incontinence, no dysuria, no hematuria Musculoskeletal-no joint pain, no muscle tenderness Skin-no bruising, no rashes, no pruritus Neuro-no isolated weakness, no paresthesia, no weakness Psych-no depression, no anxiety Physical Exam Physical Exam: General-alert and oriented x3, no fevers, no chills HEENT-head atraumatic and normocephalic, TMs intact bilaterally, pupils equal and reactive to light, extraocular muscles intact Neck-no lymphadenopathy or thyromegaly, trachea midline Chest-clear to auscultation percussion. No rales wheezing or rhonchi Cardiac-regular rate and rhythm, normal S1 and S2, no murmurs Abdomen-normal bowel sounds, nontender, no hepatosplenomegaly Extremities-no cyanosis, clubbing, or edema Neuro-cranial nerves II through XII intact, motor and sensory function within normal limits, strength symmetrical 5/5, no focal deficits Psych-normal affect, normal mood Results & Data Results & Data ([facility]) Vital Signs (Past 12 Hours) Vital Signs Temp Pulse Pulse Resp BP Pulse Ox 11/18/21 11:08 36.7 C 93 H 18 108/72 93 11/18/21 07:55 105 H 11/18/21 07:26 36.5 C 108 H 17 117/83 94 11/18/21 06:33 36.6 C 106 H 20 126/91 94 11/18/21 03:14 36.6 C 80 18 119/72 94 Laboratory Results 11/17/21 04:44 11/17/21 04:44 PG Care Time/CCT Total # of Minutes Spent Total Time Spent with Patient: Total time spent is greater than 50% in coordination of care (as documented) at patient's floor/unit and/or counseling patient: Coding Level of Care Code 33125 Subseq Hosp Care Lvl 3 Diagnoses Dilantin toxicity T42.0X1A Acute encephalopathy G93.40 Pulmonary emboli I26.99 DVT (deep venous thrombosis) I82.402 Affected thrombotic vein of extremity: unspecified vein of extremity Chronicity: acute DVT location: lower extremity Laterality: left Generalized epilepsy G40.309 Benign hypertension I10 Hemiparesis of left nondominant side G81.94 Hemiparesis etiology: unspecified Hyponatremia E87.1 Flexion contracture of joint of left lower leg M24.562 (1) DVT (deep venous thrombosis) Affected thrombotic vein of extremity: unspecified vein of extremity Chronicity: acute DVT location: lower extremity Laterality: left Qualified Code(s): I82.402 - Acute embolism and thrombosis of unspecified deep veins of left lower extremity (2) Hemiparesis of left nondominant side Hemiparesis etiology: unspecified Qualified Code(s): G81.94 - Hemiplegia, unspecified affecting left nondominant side
[2021-11-18] MEDS ORDERED: ONDANSETRON INJ 2 MG/ML 2 ML VIAL IV PRN (21:05)
[2021-11-18 21:48] LABS: Basophils # (auto) 0.02 K/uL (0-0.2); Basophils % (auto) 0.2 %; Eosinophils # (auto) 0.08 K/uL (0-0.5); Eosinophils % (auto) 0.8 %; Hematocrit (blood only) 43.5 % (42-52); Hemoglobin 15.5 g/dL (14.0-18.0); Immature Granulocytes # (auto) 0.02 K/uL (0.00-0.02); Immature Granulocytes % (auto) 0.2 %; Lymphocytes # (auto) 1.07 K/uL (1.2-3.4); Lymphocytes % (auto) 10.2 %; Mean Corpuscular Hemoglobin 33.3 pg (25-34); Mean Corpuscular Volume 93.5 fL (80-100); Mean Platelet Volume 9.8 fL (7.4-10.4); Monocytes # (auto) 0.85 K/uL (0.11-0.59); Monocytes % (auto) 8.1 %; Neutrophils # (auto) 8.48 K/uL (1.4-6.5); Neutrophils % (auto) 80.5 %; Platelet Count 245 K/uL (130-400); RDW Coefficient of Variation 13.3 % (11.5-14.5); RDW Standard Deviation 45.3 fL (36.4-46.3); Red Blood Count 4.65 M/uL (4.7-6.1); White Blood Count 10.52 K/uL (4.8-10.8)
[2021-11-18 22:04] LABS: Mean Corpuscular Hgb Conc 35.6 g/dL (32-36)
[2021-11-18 22:09] LABS: Alanine Aminotransferase 16 U/L (7-52); Albumin Level 3.8 gm/dl (3.4-5.0); Alkaline Phosphatase 178 U/L (34-104); Anion Gap 12 (3-11); Aspartate Aminotransferase 25 U/L (13-39); BUN Creatinine Ratio 15.7 (10-20); Bilirubin,Total 0.5 mg/dl (0.2-1.0); Blood Urea Nitrogen 13 mg/dl (6-23); Calcium 8.9 mg/dl (8.5-10.1); Carbon Dioxide 23 mmol/L (21-32); Chloride 96 mmol/L (98-107); Creatinine Clr Calc Pharmacy 102.7 ml/min; Est GFR (African American) 107.8 ml/min; Globulin 3.7 gm/dl (2.5-4.0); Glucose 122 mg/dl (70-99(Fasting)); Magnesium 1.6 mg/dl (1.7-2.4); Phosphorus 3.3 mg/dl (2.5-4.9); Potassium 3.9 mmol/L (3.5-5.1); Sodium 131 mmol/L (136-145); Total Protein 7.5 gm/dl (6.0-8.3)
--- NOTE | 2021-11-18 22:22 | Communication Note ---
Date of Service: November 18, 2021 I was called at ~2100 to assess this patient due to NBNB vomiting x2 this evening in addition to generalized weakness/malaise and decreased level of responsiveness. The patient was not conversive and did not answer my questions. However he was able to nod yes or no and thus was able to report that he is not in pain or discomfort. He denies current nausea and feels like a Zofran IV which he recently took helped him. He denies chest pain, abdominal pain or difficulty urinating. VS are stable and WNL. General: able to nod yes/no to questions and is able to follow commands. NAD. Cooperative. Appears somnolent/fatigued. HEENT: Atraumatic, normocephalic. Chronic limitation of EOM in left eye (down/out). PERRLA. Pulm: CTAB A&P. -wheezes, -rales, -rhonchi. Symmetrical chest rise. No increase work of breathing. No respiratory distress. Cardiac: RRR, -mrg. Radial pulses intact and symmetrical. No LE edema. Abdominal: soft, non-tender, non-distended, BS x 4 Neuro: chronic left-sided hemiparesis without other focal abnormalities. Altered Mental Status: - repeat CBC/CMP/Phos all stable. Troponin negative. Mag 1.6 and was repleted. - Unclear etiology of change in mental status - ordered CT head w/o contrast to further evaluate, given h/o GBM and associated seizure disorder Vomiting improved s/p Zofran. EKG ordered to assess QTc. Continue with PRN Zofran for further episodes, assuming QTc appropriate.
[2021-11-18 22:26] LABS: Troponin I < 0.03 ng/ml (0-0.04)
[2021-11-18] MEDS ORDERED: MAGNESIUM SULFATE / D5W 1 GM/100 ML BAG IV SCH (22:30)
[2021-11-18] MEDS: ATORVASTATIN 40 MG TAB PO SCH (23:41)
[2021-11-19] MEDS ORDERED: ONDANSETRON INJ 2 MG/ML 2 ML VIAL IV PRN (00:52)
[2021-11-19] MEDS: MoRPHine SULFATE 2 MG/ML CARP IV PRN (01:23)
[2021-11-19] MEDS: LORazepam 2 MG/1 ML VIAL IV PRN ×2 (03:58→20:34)
--- NOTE | 2021-11-19 07:17 | CT Scan Report ---
HEAD CT NONCONTRAST CT DOSE: 614.27 mGy.cm HISTORY: altered mental status TECHNIQUE: Multiaxial CT images of the head were performed without the use of intravenous contrast. A utomated exposure control was utilized for this study. A dose lowering technique was utilized adheri ng to the principles of ALARA. Comparison: Head CT 09/02/2021. Findings: Complete opacification the right mastoid air cells and right middle ear cavity which have p rogressed. The paranasal sinuses and left mastoid air cells are clear. Prior right craniectomy with o verlying metallic plate. A large area of encephalomalacia within the right temporal/occipital lobe is now filled with hemorrhage which extends into the lateral ventricles and third ventricle. There is 9 mm of left midline shift. The lateral ventricles have slightly increased in size. Hemorrhage also in volves the right basal ganglia/external capsule. Impression: Large area of intraparenchymal hemorrhage occupying the area of encephalomalacia within the right tem poral/occipital lobe with extension into the lateral and third ventricles. The hemorrhage also extend s into the right basal ganglia/external capsule. There is associated mild hydrocephalus and 9 mm of l eft midline shift. ACT 112: Negative or not required by law. Electronically signed by: Tal Harris M.D. 11/19/2021 7:16 AM
[2021-11-19] MEDS ORDERED: ACETAMINOPHEN 1,000 MG/100 ML VIAL IV STA (12:10)
[2021-11-19] MEDS: GLYCOPYRROLATE 0.2 MG/ML VIAL IV PRN ×2 (14:35→20:34)
[2021-11-19] MEDS ORDERED: LORazepam 2 MG/1 ML VIAL IV PRN (15:58)
[2021-11-19] MEDS ORDERED: ACETAMINOPHEN 1,000 MG/100 ML VIAL IV PRN (15:58)
--- NOTE | 2021-11-19 15:58 | Hospitalist Progress Note ---
Date of Service November 19, 2021 Assessment & Plan (1) Comfort measures only status: Plan: - overnight patient decreased level of responsiveness, -CT-H shows intraparenchymal hemorrhage occupying area of encephalomalacia within the right temporal/occipital lobe, extension of bleed in the lateral and third ventricles. Hemorrhage also extends into right basal ganglia/external capsule. Associated mild hydrocephalus and 9 mm of left midline shift. Discussed with the patient's , LABORATORY GENETICIST goals requested Patient made LABORATORY GENETICIST 11/18, is not stable for transport with continued active decline at this time Lorazepam, morphine as needed with comfort care order set glycopyrrolate as needed Other medications weaned -Patient unable to take p.o. at this time Maintains with IV, Tylenol 1 g 3 times daily as needed for fever/discomfort (2) Dilantin toxicity: Plan: Peak dilantin level 24. Dilantin temporarily held. Last Level now 14. Deviously on dilantin as follows - 100mg am, 100mg afternoon, 200mg HS (had been 200mg TID). Suspect high dilantin levels had contributed to recent lethargy, confusion, etc. Discontinued, LABORATORY GENETICIST as above (3) Intracranial bleed: (4) Acute encephalopathy: Plan: Resolved suspect toxic in nature (dilantin, gabapentin, etc) metabolic w/u negative cont supportive care LABORATORY GENETICIST as above (5) Pulmonary emboli: Plan: CTA study showed right-sided PEs. Heparin drip initiated -subsequently changed to Lovenox 95 mg SQ every 12 hours (therapeutic dosing) observation for recurrent retroperitoneal bleeding (had such in 09/2021 when INR was 7) and prior intra-cerebral hemorrhage in 2018. At this time IVC filter was deferred by vascular surgery unless he has additional bleeding complications. Appreciate heme/onc input. Defer additional work-up/treatment, patient LABORATORY GENETICIST in the setting of intracranial bleed as above (6) DVT (deep venous thrombosis): Plan: LLE - recurrent. Acute DVT is in the distal common femoral vein, superficial femoral vein, and popliteal vein. Coumadin was held since September due to retroperitoneal bleeding during that admission. New findings of bilateral pulmonary emboli. Patient started on Lovenox 1 mg/kg SQ (95 mg twice daily) LABORATORY GENETICIST as above, Lovenox discontinued (7) Generalized epilepsy: Plan: Dilantin level was HIGH on admission Dilantin previously held; see #1 above repeat level 14.5 Dilantin discontinued Living will discontinued, not taking p.o. Ativan as needed, may use additional 4 mg IV dose if needed for breakthrough seizure (8) Benign hypertension: Plan: Continue metoprolol 50 mg p.o. 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 (11) Flexion contracture of joint of left lower leg: Plan: Left leg pain is his most consistent complaint day to day and has been at home as well per his . Trials of pain meds and gabapentin were not helpful or successful. Now on trial of baclofen 5mg BID. Titrate as tolerated. Pain was described as pins and needles/burning. Stopped baclofen and trying Neurontin. These were discontinued and patient was to LABORATORY GENETICIST due to intracranial bleed as above Plan: LABORATORY GENETICIST Admission and Anticipated Discharge Date Admission Date: November 02, 2021 Subjective Patient seen at bedside with multiple family members present. Last night at approximately 9 PM patient experienced vomiting, generalized weakness, and decreased consciousness/responsiveness and was not conversive. CT head showed an acute intraparenchymal hematoma in the right thalamus/basal ganglia with extravasation of hemorrhage into the right temporal lobe and ventricles associated with 9.8 mm right to left midline shift. Patient's was contacted by overnight provider team and discussed the extremely poor prognosis especially given hemorrhage with midline shift. reported that she would want to follow her 's wishes and he would not want to pursue further management of this. Did not want transfer to tertiary care, evaluation for intracranial surgery. Goals were discussed and patient was changed to comfort measures only. At this point he is critically ill with an intracerebral hemorrhage, suspect he will have acute decline and likely passed in the hospital. He does not follow commands at the bedside does open eyes spontaneously to touch and some noises but with decreased responsiveness through the morning. Review of Systems Constitutional: Able to be obtained Physical Exam Physical Exam: Does not follow one-step commands. Opens eyes transiently to voice/tactile stimulation, nonverbal. Extensive exam deferred for comfort and LABORATORY GENETICIST goals of care. PG Care Time/CCT Total # of Minutes Spent Total Time Spent with Patient: Total time spent is greater than 50% in coordination of care (as documented) at patient's floor/unit and/or counseling patient: Coding Level of Care Code 64475 Subseq Hosp Care Lvl 2 Diagnoses Dilantin toxicity T42.0X1A Acute encephalopathy G93.40 Pulmonary emboli I26.99 DVT (deep venous thrombosis) I82.402 Affected thrombotic vein of extremity: unspecified vein of extremity Chronicity: acute DVT location: lower extremity Laterality: left Generalized epilepsy G40.309 Benign hypertension I10 Hemiparesis of left nondominant side G81.94 Hemiparesis etiology: unspecified Hyponatremia E87.1 Flexion contracture of joint of left lower leg M24.562 Comfort measures only status Z51.5 Intracranial bleed I62.9 (1) DVT (deep venous thrombosis) Affected thrombotic vein of extremity: unspecified vein of extremity Chronicity: acute DVT location: lower extremity Laterality: left Qualified Code(s): I82.402 - Acute embolism and thrombosis of unspecified deep veins of left lower extremity (2) Hemiparesis of left nondominant side Hemiparesis etiology: unspecified Qualified Code(s): G81.94 - Hemiplegia, unspecified affecting left nondominant side
[2021-11-20] MEDS: GLYCOPYRROLATE 0.2 MG/ML VIAL IV PRN ×2 (00:15→04:05)
[2021-11-20] MEDS: MoRPHine SULFATE 2 MG/ML CARP IV PRN (03:20)
--- NOTE | 2021-11-20 05:22 | Death Pronouncement Note ---
Date of Service November 20, 2021 Pronouncement Note Admission Date November 02, 2021 Date and Time of Date of : 11/20/21 Time of : 05:12 Additional Data Confirmation of : no pulse, no respirations and no heart sounds Pronouncement Performed By: Resident Physician Family: at bedside Attending/PCP notified?: Yes Attending physician: Jose Clancy MD Was code activated?: No Autopsy requested?: No forensic document examiner notified?: No Organ bank notified?: No Resident Activity Tracking Resident Involvement: Resident Care Provided Care Provided: Adult Hospital Medicine
--- NOTE | 2021-11-20 18:20 | Discharge Summary ---
Date of Service November 20, 2021 Admission HPI Per Admitting Provider 65 yo M Hx glioblastoma s/p resection with residual left sided deficits, seizure disorder, Hx retroperitoneal hematoma and cerebral hemorrhage, HLD, HTN, AVANI presented to the ER for worsening acute on chronic left leg pain. Per patient has had some leg pain since discharge from [facility] (admitted in September of this year, and had retroperitoneal hemorrhage during that admission). Coumadin was held for last admission, and consideration was had to restarting this medication several weeks following discharge, however it was not restarted. Patient is generally bed/wheelchair-bound at baseline. Today had worsening of his left leg pain prompting ER evaluation. Patient denies SOB, chest pain, fevers. In the ER patient was noted to have US LLE which revealed DVT, as well as XR leg which showed bony mass vs. infarct in tibia area. Patient was briefly started on Heparin gtt. Principal Diagnosis Intracranial Bleed Discharge Exam Performed by Pronouncing Resident Dr. Velazquez, please see his documentation Discharge Data Allergies Allergy/AdvReac Type Severity Reaction Status Date / Time gabapentin AdvReac Intermediate hallucinati Verified 11/02/21 18:12 ons Consultations 11/02/21 21:31 ED Decision to Admit Stat 11/02/21 22:26 Consult Vascular Surgery Routine 11/03/21 00:49 Consult Hematology Routine Ordered Studies 11/02/21 17:26 US venous doppler LE LT Stat 11/02/21 23:00 CT tib/fib LT w con Urgent 11/06/21 17:16 CT angio chest PE protocol Routine 11/18/21 21:38 CT head/brain wo con Urgent Hospital Course (1) Comfort measures only status: *Patient , Summary Note* 65 yo M Hx glioblastoma s/p resection with residual left sided deficits, seizure disorder, Hx retroperitoneal hematoma and cerebral hemorrhage, HLD, HTN, AVANI presented to the ER for worsening acute on chronic left leg pain. Patient was found to have right-sided pulmonary emboli for which he was started on a heparin drip subsequently changed to Lovenox every 12 with close observation due to prior history of bleeding. Patient also had recurrent DVT in the distal common femoral vein. Case was reviewed with hematology given patient's bleeding risk, given life-threatening PE with decreased oxygen saturation cautious anticoagulation was recommended. DOAC use was not recommended this can interact with the patient's phenytoin. He was converted to low-dose molecular weight heparin. Patient did have acute neurologic change and sedation on 11/18 evening, stat CT showed acute intracerebral hemorrhage with extension into right temporal lobe and ventricles and a 9.8 mm right to left midline shift. Goals of care were discussed with patient's and family, patient will moved to [facility] in passed shortly thereafter. due to: intraparenchymal hemorrhage with extension into ventricles and associated midline shift Therapeutic anticoagulation Acute pulmonary emboli Comfort measures initiated 11/18 - overnight patient decreased level of responsiveness, -CT-H shows intraparenchymal hemorrhage occupying area of encephalomalacia within the right temporal/occipital lobe, extension of bleed in the lateral and third ventricles. Hemorrhage also extends into right basal ganglia/external capsule. Associated mild hydrocephalus and 9 mm of left midline shift. Discussed with the patient's , ROD BUSTER HELPER goals requested Patient made ROD BUSTER HELPER 11/18, is not stable for transport with continued active decline at this time Lorazepam, morphine as needed with comfort care order set glycopyrrolate as needed Other medications weaned -Patient unable to take p.o. at this time Maintains with IV, Tylenol 1 g 3 times daily as needed for fever/discomfort Documentation below included for narrative completion (2) Dilantin toxicity: Peak dilantin level 24. Dilantin temporarily held. Last Level now 14. Deviously on dilantin as follows - 100mg am, 100mg afternoon, 200mg HS (had been 200mg TID). Suspect high dilantin levels had contributed to recent lethargy, confusion, etc. Discontinued, ROD BUSTER HELPER as above (3) Intracranial bleed: (4) Acute encephalopathy: Resolved suspect toxic in nature (dilantin, gabapentin, etc) metabolic w/u negative cont supportive care ROD BUSTER HELPER as above (5) Pulmonary emboli: CTA study showed right-sided PEs. Heparin drip initiated -subsequently changed to Lovenox 95 mg SQ every 12 hours (therapeutic dosing) observation for recurrent retroperitoneal bleeding (had such in 09/2021 when INR was 7) and prior intra-cerebral hemorrhage in 2018. At this time IVC filter was deferred by vascular surgery unless he has additional bleeding complications. Appreciate heme/onc input. Defer additional work-up/treatment, patient ROD BUSTER HELPER in the setting of intracranial bleed as above (6) DVT (deep venous thrombosis): LLE - recurrent. Acute DVT is in the distal common femoral vein, superficial femoral vein, and popliteal vein. Coumadin was held since September due to retroperitoneal bleeding during that admission. New findings of bilateral pulmonary emboli. Patient started on Lovenox 1 mg/kg SQ (95 mg twice daily) ROD BUSTER HELPER as above, Lovenox discontinued (7) Generalized epilepsy: Dilantin level was HIGH on admission Dilantin previously held; see #1 above repeat level 14.5 Dilantin discontinued Living will discontinued, not taking p.o. Ativan as needed, may use additional 4 mg IV dose if needed for breakthrough seizure (8) Benign hypertension: Continue metoprolol 50 mg p.o. twice daily (9) Hemiparesis of left nondominant side: 2nd to GBM with prior resection and resulting encephalomalacia recommend passive movements to help stretch left leg (10) Hyponatremia: Deferred additional checks, patient ROD BUSTER HELPER as above. (11) Flexion contracture of joint of left lower leg: Left leg pain is his most consistent complaint day to day and has been at home as well per his . Trials of pain meds and gabapentin were not helpful or successful. Now on trial of baclofen 5mg BID. Titrate as tolerated. Pain was described as pins and needles/burning. Stopped baclofen and trying Neurontin. These were discontinued and patient was to ROD BUSTER HELPER due to intracranial bleed as above ROD BUSTER HELPER Total Time Total Time Spent Total Time Spent (In Minutes): Patient was not seen on day of discharge, was pronounced by overnight resident. Time spent on documentation and summary and online registry approximately 30 minutes. Discharge Plan Discharge Items Patient Disposition: Other Date/Time: 11/20/21 05:12 Interventions: Discharge Summary Assessment (RN) Last Done: 11/20/21 06:46 Coding Level of Care Code D/C DAY MANAGEMENT <30 MINS Diagnoses Comfort measures only status Z51.5 Dilantin toxicity T42.0X1A Intracranial bleed I62.9 Acute encephalopathy G93.40 Pulmonary emboli I26.99 DVT (deep venous thrombosis) I82.402 Affected thrombotic vein of extremity: unspecified vein of extremity Chronicity: acute DVT location: lower extremity Laterality: left Generalized epilepsy G40.309 Benign hypertension I10 Hemiparesis of left nondominant side G81.94 Hemiparesis etiology: unspecified Hyponatremia E87.1 Flexion contracture of joint of left lower leg M24.562
== END 2021-11-20 06:47 | disposition expired | DRG 299 ==
LOC: ED 16:54 → SUATTDRO 22:22 → 2W 22:22